=== PATIENT | female | born 1955 | race Caucasian/White ===

== ENCOUNTER → 2017-06-06 14:35 | Outpatient (CLI) | payer MEDICARE, SELFPAY | PROVIDERS: Visit Provider Family Medicine | DX: Z00.00 Encounter for general adult medical examination without abnormal findings (principal); R82.90 Unspecified abnormal findings in urine | CPT/HCPCS: 87086; 87088 ==

== ENCOUNTER 2017-06-19 05:41 | Inpatient (IN) | payer MEDICARE, SELFPAY ==
--- NOTE | 2017-05-16 10:46 | CASEMGMT ---
Social Work Note Placed call to pt to discuss discharge plan. Introduced self and role at [facility]. The pt reports that she lives with 3 family members in a one-story home with 3 entry steps and HR. DME consists of a walker, w/c and electric w/c. Pt does not anticipate additional DME needs. Pt states she talked to the physician about d/c options, but they did not identify a plan. Inform the pt of options and state that PT/OT will see her during her hospitalization and will make a recommendation. Understanding expressed and RN CM to f/u with post-operatively. Plan: TBD. Jaida Bateman WHARF ATTENDANT APPLICATIONS SUPPORT LEAD
--- NOTE | 2017-05-17 12:17 | EKG12_ITS ---
Test Reason : PREOP Blood Pressure : / mmHG Vent. Rate : 067 BPM Atrial Rate : 067 BPM P-R Int : 148 ms QRS Dur : 088 ms QT Int : 410 ms P-R-T Axes : 041 032 044 degrees QTc Int : 433 ms Normal sinus rhythm with sinus arrhythmia Normal ECG Confirmed by LETA BOB, SHAYY ([id number]), publications editor HUE CASANOVA ([id number]) on 05/18/2017 2:03:02 PM Referred By: LEXUS Confirmed By:SHAYY GILLETTE MD
[2017-05-17 12:41] LABS: Hematocrit 34.1 % (37-47); Mean Corp Hgb Conc 32.3 g/gl (32-36); Mean Corpuscular Volume 86.8 fL (81-99); Mean Platelet Vol. 9.8 fl (6.2-12.0); Platelet Count 289 K/mm3 (150-450); RBC Distribution Width CV 14.2 % (11.6-14.6); RBC Distribution Width SD 43.8 fl (35.1-43.9); Red Blood Count 3.93 M/mm3 (4.2-5.4); White Blood Count 7.3 K/mm3 (4.4-11.0)
[2017-05-17 12:43] LABS: Scan Indicated on CBC? Y/N NO
[2017-05-17 13:30] LABS: Anion Gap 9 (5-15); BUN 13 mg/dL (7-18); BUN/Creat Ratio 15.3 RATIO (10-20); Calcium,Total 9.2 mg/dL (8.5-10.1); Chloride 105 mmol/L (98-107); Creatinine, Serum 0.85 mg/dL (0.55-1.02); EST Glomerular Filtration Rate 72 mL/min (>60); Est Glom Filt Rate - Afr Amer 87 mL/min (>60); Glucose 103 mg/dL (74-106); Potassium 3.9 mmol/L (3.5-5.1); Sodium Level 139 mmol/L (136-145)
--- NOTE | 2017-06-14 15:49 | CASEMGMT ---
BROOKS CEE called and spoke with patient regarding discharge needs after upcoming surgery. BROOKS CEE confirmed that patient has a walker, wheelchair, and electric wheelchair at home. Patient states she lives in house with and family. Patient states the Dr. Chua was not sure on type of therapy for at discharge but patient plans to discharge home. Discussed outpatient therapy vs [facility] and will monitor how patient does with therapy after surgery. BROOKS CEE will follow up with patient after surgery and will assist with discharge needs.
[2017-06-19] VITALS (11 sets, daily range): BP systolic 94–155; BP diastolic 55–87; PULSE 58–73; RESP 16–18; TEMP 36.1–36.9; O2SAT 91–97; BMI 47.5
[2017-06-19] MEDS: oxyCODONE HCl Cr 10 MG Tablet PO ×3 (06:34→21:28)
--- NOTE | 2017-06-19 07:15 | KNEE_PTH ---
PATIENT: MACKENZIE AKHTAR LOC: MS3 U#:[id number] AGE/SX: 61/F ROOM: SC315 RE06/19/[address]: Dr. Arina Garrett DO : 1955 BED: 1 DIS: 06/22/2017 SPEC #: [id number] RECD: 06/19/17 10:12 STATUS: ELSA ELIZABETH #: [id number] PRETTY: 06/19/17 07:[address]: Martir Chua DEPT: SURGICAL PATHOLOGY RECD BY: Deshaun Mccarty ENTERED: 06/19/17 14:14 SP TYPE: TOTAL KNEE OTHR DR: Dr. Sudheer Lion MD Tissues: A - Knee, NOS B - Knee, NOS Procedures: Decalcification bone/plaque Surgery Specimen Level IV HEADER OPERATION: Total knee replacement PRE-OP DIAGNOSIS: Right knee osteoarthritis TISSUE SUBMITTED: A ? Right knee bone and soft tissue, B ? Right knee soft tissue, PVNS, for biopsy MICROSCOPIC DIAGNOSIS A. Right knee bone and soft tissue, total knee replacement: Pieces of bone with degenerative osteoarthritic changes. Fibroadipose tissue, fibroconnective tissue and reactive synovial tissue. B. Right knee soft tissue: A piece of synovial tissue with mild papillary hyperplasia, chronic inflammation and reactive changes. See comment. SJ:marti 06/22/17 COMMENT B. Changes consistent with pigmented villonodular synovitis are not seen. MICROSCOPIC DESCRIPTION Slides are reviewed. GROSS DESCRIPTION A - Received is one container designated right knee bone and soft tissue. The specimen consists of multiple fragments of thomas-yellow bone measuring in aggregate 15 x 11 x 1.5 cm. Also in the specimen container are multiple fragments of yellow-white soft tissue measuring in aggregate 11 x 6 x 2 cm. A number of bony fragments contain articular surfaces consistent with tibial plateau and femoral condyle and displaying prominent osteophyte formation, eburnation, and bone erosion. Wool Dyer sections are submitted in two cassettes as follows: 1 - bone after decalcification, 2 - soft tissue. B - Received in fixative is one container labeled with the patient's name and designated right knee soft tissue. The specimen consists of an elongated fragment of pink-yellow soft tissue measuring 6 x 2.5 x 1.5 cm. Serial sections do not reveal mass lesions. Wool Dyer sections are submitted in one cassette. / AM:marti 06/19/17 TC:5 CPT: 30296 x2, 48090
--- NOTE | 2017-06-19 08:45 | PCM.IMDPSTOP ---
Immediate Post-Op Note Date of Procedure: 06/19/17 Primary Surgeon/Physician: Martir Chua DO automatic buffing wheel former: Deyvi Uriarte Pre-Operative Diagnosis: Right knee osteoarthritis, history of CVA Post-Operative Diagnosis: Same as above Surgery/Procedure Performed:: Right total knee arthroplasty. Description of Surgical Findings:: See dictation Estimated Blood Loss: 50 Specimen's removed: Bone cuts, synovial biopsy-possible PVNS Type of Anesthesia:: Spinal ASA Class: ASA3 Severe Disease - Admit VTE Documentation VTE Present on Admission: No VTE Mechan Device Prophylaxis: SCD's, Knee High FRANCI Hose VTE Pharm Prophylaxis ordered?: Yes
--- NOTE | 2017-06-19 08:54 | OP.PCM_ITS ---
Report of Operation Date of Procedure: 06/19/17 Pre-Operative Diagnosis: Right knee osteoarthritis, history of CVA Post-Operative Diagnosis: Same as above Surgery/Procedure Performed:: Right total knee arthroplasty. Description of Surgical Findings:: 61-year-old female with recalcitrant right knee pain and osteoarthritis and with a history of cva to that ipsilateral side. Having failed conservative measures to include NSAIDs activity modifications physical therapy and injections. Patient elected for operative intervention. She was up to counseled consented for the aforementioned procedure. She is met in the holding area where the right lower extremity was marked and identified by the with surgeon. Patient was taken the operating room in satisfactory condition with somewhat to place to identify patient operative procedure and limb. Patient received 1 g of vancomycin secondary to a positive MRSA skin test and 1 g of TXA. She had a well-placed tourniquet the right proximal thigh. She was then prepped and draped in usual fashion. Patient showed no obvious flexion contracture but was in varus with a correctable deformity. Patient has somewhat of a large pannus which causes her leg externally rotated. Right lower extremity was elevated Esmarch used for exsanguination and tourniquet was increased to 250 mmHg for roughly 60 minutes. Patient is standard midline incision made 2 fingerbreadths above the patella down to the tibial tubercle. Full-thickness dissection was undertaken. She had then underwent a standard medial parapatellar approach. Patient had a large return of an effusion. Her superior synovial flap had some discoloration concerning for PVNS so ice did of synovial biopsy at that time we will send down for evaluation. Standard synovectomy was undertaken. Anterior release and fat pad resection was then performed. We then performed a standard anterior medial release moving posterior medially to correct the valgus deformity. At that point time we entered into the intramedullary canal to perform our distal femoral cut. We had a 6? valgus cut with an 8 mm distal femoral resection. Sizing guide was then placed. Patient sized to a size 3. Standard cutting block was placed and cuts performed without difficulty. We then turned our attention to the tibia. Tibial guide was set for a CR component with 3? of slope. Standard cuts were performed taking 2 mm off the medial side. Patient was then brought to full extension remnant menisci were resected. The posterior medial and posterior lateral geniculate vessels were then cauterized. Patient sized to a size 9 and 11 with no flexion extension gaps appreciated and good mechanical alignment. At that point time the trial femoral component was placed in anticipation of a press-fit component secondary to good bone quality. We then placed a size 3 tibial tray setting and appropriate rotation. It was then fixed using standard technique we trialed to a size 11. Had good overall mechanical alignment. Trial component was removed femoral component keel size were introduced. We then placed a keel punch the tibia and secondary punch in anticipation again of a press-fit component. We then turned our attention to the patella. The patella diameter was 22 mm. We took off 9. Patient sized with 32 patella button. Standard holes were drilled in anticipation of performing a cemented patella component. The wound was then copiously irrigated remove any excess debris. Trial our final components were brought from the back table. Cement was pared to the back table as well. Subsequently press-fit the femur with good fit. Seated our tibial tray and placed a 11 mm Pham. In Galvan turned our attention to the patella the patella patella was then cemented and allowed to cure using standard technique. Upon completion we checked our range of motion with a 13 mm poly-trial with good patellar tracking. At that point time the wound was copious irrigated additional time remove any excess debris and cement. We then introduced a 13 mm CS Pham. This was done using standard technique. With excellent range of motion mechanical stability there was no flexion or extension gaps appreciated. At that point time the wound was copious irrigated additional time and then closed in layer technique with the distal two thirds closed with the knee in flexion of about 30? using #1 Vicryl in [id number] technique. The proximal portion of the quad incision was closed with again with #1 Vicryl using [id number] and full extension. Soft tissues reapproximated 2-0 Vicryl running subicular Monocryl and Dermabond. I was scrubbed and available time during our procedure. We had no drains or complications. Implants included Fabiola triathlon press-fit 3 femur 3 tibia 11 CS Pham and a 32 patella button. Patient be admitted floor for 24 hours of IV antibiotics appropriate IV and p.o. pain medication and DVT prophylaxis to include 325 p.o. twice daily of aspirin with appropriate GI prophylaxis and then we will substitute convert the patient back to Plavix per recommendation of medicine. Any major issues please contact me. financial services sales representative: Deyvi Uriarte Type of Anesthesia:: Spinal Specimen's removed: Bone cuts, synovial biopsy-possible PVNS Estimated Blood Loss (mL): 50 Grafts/Implants Used: Striker triathlon press-fit 3, 3, 13 CS, 32 - Complications None - Admit VTE Documentation VTE Present on Admission: No VTE Mechan Device Prophylaxis: SCD's, Knee High FRANCI Hose VTE Pharm Prophylaxis ordered?: Yes
--- NOTE | 2017-06-19 09:10 | RAD_ITS ---
STUDY: X-RAY - RIGHT KNEE REASON FOR EXAM: Female, 61 years old. Total knee replacement. TECHNIQUE: AP and lateral view(s) of the knee. COMPARISON: Comparison is made with prior study dated April 18, 2017. FINDINGS: Normal visualized distal femur. Normal visualized proximal tibia and fibula. Normal proximal tibiofibular articulation. The patient is status post total knee replacement. There is good alignment. Postoperative soft tissue changes. RAD/Knee 1 or 2 Views IMPRESSION: Total knee replacement. There is good alignment. Postoperative soft tissue changes. Electronically Signed: Boone Castro MD at 12:54 EDT Tel [phone], Service support ,
[2017-06-19] MEDS: Ketorolac 15 MG/ML Vial IV (09:35)
[2017-06-19] MEDS: Lactated Ringers 1,000 ML 75 ML IV (11:49)
[2017-06-19] MEDS: Famotidine 20 MG Tablet PO (13:15)
[2017-06-19] MEDS: Sertraline 50 MG Tablet PO (13:16)
[2017-06-19] MEDS: Multivitamins,Therapeutic Tablet 1 TABLET PO (13:16)
[2017-06-19] MEDS: Pantoprazole Sodium 40 MG Tablet PO (13:16)
[2017-06-19] MEDS: Senna/Docusate Sodium 1 Tablet 2 TABLET PO ×2 (13:17→21:28)
[2017-06-19] MEDS: Lisinopril 10 MG Tablet PO ×2 (13:17→21:28)
[2017-06-19] MEDS: Ascorbic Acid 500 MG Tablet 1000 MG PO (13:18)
[2017-06-19] MEDS: ALPRAZolam 0.5 MG Tablet 1 MG PO ×2 (13:21→21:28)
[2017-06-19] MEDS: Pramipexole Di-HCl 0.25 MG Tablet 0.75 MG PO ×2 (14:24→21:28)
[2017-06-19] MEDS: Acetaminophen 500 MG Tablet 1000 MG PO ×2 (14:24→21:28)
[2017-06-19] MEDS: Aspirin 325 MG Tablet PO (16:51)
[2017-06-19] MEDS: oxyCODONE 5 MG Tablet PO (16:58)
[2017-06-19] MEDS: Atorvastatin Calcium 40 MG Tablet PO (21:28)
[2017-06-20] VITALS (10 sets, daily range): BP systolic 166–244; BP diastolic 66–95; PULSE 78–96; RESP 16–20; TEMP 36.6–37; O2SAT 92–99
[2017-06-20] MEDS: oxyCODONE 5 MG Tablet PO (04:01)
[2017-06-20] MEDS: Ketorolac 15 MG/ML Vial IV (04:04)
[2017-06-20] MEDS: 0.9% NaCl Peripheral Flush Adult/Peds IV ×2 (04:04→15:22)
[2017-06-20 06:05] LABS: Hematocrit 30.7 % (37-47); Hemoglobin 9.6 g/dl (12.0-15.0); Mean Corp Hgb Conc 31.3 g/gl (32-36); Mean Corpuscular Hgb 27.1 pg (27.0-32.0); Mean Corpuscular Volume 86.7 fL (81-99); Platelet Count 255 K/mm3 (150-450); RBC Distribution Width CV 14.2 % (11.6-14.6); RBC Distribution Width SD 43.5 fl (35.1-43.9); Red Blood Count 3.54 M/mm3 (4.2-5.4); White Blood Count 8.2 K/mm3 (4.4-11.0)
[2017-06-20 06:11] LABS: Scan Indicated on CBC? Y/N NO
[2017-06-20] MEDS: Pramipexole Di-HCl 0.25 MG Tablet 0.75 MG PO ×3 (06:13→22:02)
[2017-06-20] MEDS: Acetaminophen 500 MG Tablet 1000 MG PO ×3 (06:13→22:02)
[2017-06-20 06:18] LABS: Anion Gap 8 (5-15); BUN 17 mg/dL (7-18); BUN/Creat Ratio 15.2 RATIO (10-20); Calcium,Total 8.4 mg/dL (8.5-10.1); Chloride 105 mmol/L (98-107); Creatinine, Serum 1.12 mg/dL (0.55-1.02); EST Glomerular Filtration Rate 52 mL/min (>60); Est Glom Filt Rate - Afr Amer 63 mL/min (>60); Estimated Creatinine Clearance 40.66 ml/min; Glucose 158 mg/dL (74-106); Potassium 4.1 mmol/L (3.5-5.1); Sodium Level 139 mmol/L (136-145)
--- NOTE | 2017-06-20 07:48 | PCM.PN.ORT ---
Subjective: Postop day 1 status post right total knee arthroplasty. No other issues overnight. Pain is controlled but still playing catch up a little bit as the block wears off which is expected. Otherwise the patient reports having been up ambulating and using the restroom. Currently eating. No acute distress. Denies any fevers chills nausea vomiting chest pain or shortness of breath. - Physical Exam General: Alert, Oriented x3, Cooperative, No apparent distress Musculoskeletal: - - Distally neurovascular intact. EHL anterior gastrocsoleus peroneals 5 out of 5. Patient shows mild varus change the ankle related to contracture related to her stroke. The may alter gait pattern just to be aware. Otherwise no calf pain negative Homans. Hardware otherwise well seated well-placed. Lab values stable. Vital Signs Temp Pulse Resp BP Pulse Ox 98.6 F 78 20 H 195/93 H 94 06/20/17 04:00 06/20/17 04:00 06/20/17 04:00 06/20/17 04:00 06/20/17 04:00 Oxygen Flow Rate (L/min) 2 Oxygen Delivery Method Venturi Mask Weight: 263 lb 0.183 oz Body Mass Index (BMI) 47.5 Finger Stick Blood Glucose 97 Intake and Output for Last 24 Hours 06/18/17 06/19/17 06/20/17 23:59 23:59 23:59 Intake Total 1200 / 1200 1008 / 1008 Output Total 550 / 550 Balance 1200 / 1200 458 / 458 Laboratory Tests Past 24 Hrs 06/20/17 06/20/17 05:06 05:06 WBC 8.2 RBC 3.54 L Hgb 9.6 L Hct 30.7 L MCV 86.7 MCH 27.1 MCHC 31.3 L RDW 14.2 RDW Differential 43.5 Plt Count 255 MPV 10.0 Sodium 139 Potassium 4.1 Chloride 105 Carbon Dioxide 26.0 Anion Gap 8 BUN 17 Creatinine 1.12 H Estim Creat Clear Calc 40.66 Est GFR (MDRD) Af Amer 63 Est GFR (MDRD) Non-Af 52 L BUN/Creatinine Ratio 15.2 Glucose 158 H Calcium 8.4 L Assessment/Plan Assessment: Postop day 1 status post right total knee arthroplasty doing well. Plan: At this point time I change the medication to 10 mg every 4 as she is a bigger lady. We will continue with current regimen for now. Continue to mobilize. His pain management issues please contact me and we can consider either changing her IV medication to Dilaudid or consider changing her OxyContin as long as he is not to use too sedated to 20 mg. Continue to work on aggressive range of motion. Patient will need placement to transitional care unit or equivalent. Any issues please contact me.
[2017-06-20] MEDS: Lisinopril 10 MG Tablet PO ×2 (08:21→22:02)
[2017-06-20] MEDS: Famotidine 20 MG Tablet PO (08:21)
[2017-06-20] MEDS: Multivitamins,Therapeutic Tablet 1 TABLET PO (08:21)
[2017-06-20] MEDS: Pantoprazole Sodium 40 MG Tablet PO (08:21)
[2017-06-20] MEDS: Senna/Docusate Sodium 1 Tablet 2 TABLET PO ×2 (08:21→22:02)
[2017-06-20] MEDS: Aspirin 325 MG Tablet PO ×2 (08:21→17:03)
[2017-06-20] MEDS: Ascorbic Acid 500 MG Tablet 1000 MG PO (08:21)
[2017-06-20] MEDS: Sertraline 50 MG Tablet PO (08:22)
[2017-06-20] MEDS: Gabapentin 300 MG Capsule PO ×2 (08:25→17:03)
[2017-06-20] MEDS: oxyCODONE HCl Cr 10 MG Tablet PO (08:26)
[2017-06-20] MEDS: ALPRAZolam 0.5 MG Tablet 1 MG PO (08:26)
[2017-06-20] MEDS: Iron Polysaccharide Complex 150 MG CAPSULE PO (08:43)
[2017-06-20] MEDS: oxyCODONE 5 MG Tablet 10 MG PO ×2 (10:27→17:03)
--- NOTE | 2017-06-20 10:45 | CASEMGMT ---
BROOKS CEE Face to Face with patient for initial transition planning/care coordination assessment. BROOKS CEE introduced self and role at [facility]. Patient sitting in chair, alert and oriented. Patient willing to participate in assessment and is able to answer all questions appropriately. Care providers, pharmacy, and demographics verified. Patient wishes to discharge home and discussed with patient and therapy HHC vs outpatient therapy. Patient states that HHC would be preferred. Patient has a rollator and therapy stated patient would benefit from FWW. Patient states he has no further needs or concerns at this time. BROOKS CEE will obtain script from Dr. Chua for FWW and setup with [facility] for delivery to hospital prior to discharge. Referral made to [facility]HC for PT at home. CM to follow for discharge planning needs that may arise. Disposition Plan: Patient to discharge home with HHC, family support, and follow-up plans in place.
--- NOTE | 2017-06-20 11:15 | CASEMGMT ---
Received call back from Susie at [facility] and they are able to accept the patient. RN CM will continue to follow this patient and plan for a safe discharge.
--- NOTE | 2017-06-20 15:17 | PCM.CONS.GEN ---
Problem List (1) Coronary artery disease Status: Chronic (2) Hyperlipidemia Status: Chronic (3) Hypertension Status: Chronic (4) Morbid obesity Status: Chronic (5) Right sided cerebral infarction Status: Chronic Reason for Consult Date of Consultation: 06/20/17 Reason for Consultation: Elevated blood pressure and postoperative medical management. History of Present Illness: The patient is a 61 year old F with past medical history as mentioned above who was admitted on June 19, 2017 for elective right total knee replacement for right knee osteoarthritis and I am seeing this patient in consultation for postoperative medical management and highly elevated blood pressure. Patient seen and examined. She complained of right knee pain, 7 out of 10 in severity, not radiating and her current pain medication regimen is not controlling her pain. She is on she was started on MS Contin, IV morphine and OxyIR for pain and according to nursing staff, she has been sleepy and lethargic most of her time. Even though, she has been complaining of severe right knee pain. She denied headache, blurry vision or change in her speech. She denied chest pain or shortness of breath. Denied abdominal pain, nausea or vomiting. She denied numbness or tingling. She has a history of CAD status post stents and she is on Plavix, statins and lisinopril. She had a history of hypertension and at this time, her blood pressure is highly elevated. She is on lisinopril and she is not sure if she is still on Norvasc or not. She has a history of depression and anxiety with history of suicide attempt in the past and she has been on Zoloft and Xanax. At this time, blood pressure is 244/95. Order given to give IV hydrazine 10 mg every 8 hours as needed for systolic more than 160. I requested the nursing staff to update her medication list by contacting her pharmacy and see if she is still on Norvasc. Routine blood work from today reviewed, revealed chronic anemia with stable hemoglobin, otherwise normal. Past Medical History Past Medical History (Chronic Problems): Chronic Problems (Last Reviewed 06/06/17 @ 10:31 by Judith Mai) Coronary artery disease (Chronic) Morbid obesity (Chronic) Right sided cerebral infarction (Chronic) Hypertension (Chronic) Hyperlipidemia (Chronic) Allergies ciprofloxacin [From Cipro] Allergy (Verified 05/16/17 13:03) Unknown escitalopram oxalate [From Lexapro] Allergy (Verified 05/16/17 13:03) Unknown heparin Allergy (Verified 05/16/17 13:03) Unknown mupirocin [From Bactroban] Allergy (Verified 05/16/17 13:03) Unknown trazodone Allergy (Verified 05/16/17 13:03) Unknown adhesive tape Adverse Reaction (Verified 05/16/17 13:03) Other Home Medications: Ambulatory Orders Medication Instructions Recorded ALPRAZolam [Xanax] 1 mg PO BID 08/25/15 Clopidogrel Bisulfate [Plavix] 75 mg PO QHS 08/25/15 Ibuprofen [Motrin] 600 mg PO Q8 08/25/15 Lisinopril [Zestril] 10 mg PO BID 08/25/15 Sertraline HCl [Zoloft] 50 mg PO DAILY 08/25/15 Atorvastatin Calcium [Lipitor] 40 mg PO QHS 01/27/16 L.acidoph,Paracasei, B.lactis 1 ea PO DAILY 01/27/16 [Probiotic] Pantoprazole Sodium [Protonix] 40 mg PO DAILY 01/27/16 Pramipexole Di-HCl [Mirapex ER] 2.25 mg PO QHS 02/23/17 amlodipine 10 mg tablet 10 mg PO QDAY #90 tab 05/21/17 tramadol 50 mg tablet 50 mg PO Q6H 06/06/17 Surgical History: cholecystectomy, hysterectomy, tonsillectomy Psychiatric History: Anxiety, Depression [employer]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 Dyspnea, Syncope Respiratory: Denies: Cough, Hemoptysis, Pleuritic Pain, Shortness of Breath, Sputum production, Wheezing Gastrointestinal: Denies: Abdominal Pain, Constipation, Diarrhea, Nausea, Vomiting Genitourinary: Denies: Dysuria, Frequency, Hematuria Musculoskeletal: Reports: Joint Pain. Denies: Arm Pain, Back Pain Skin: Denies: Dryness, Rash Neurological: Denies: Balance problems, Double vision, Change in Speech, Slurred speech, Confusion, Headaches, Incoordination, Numbness Psychiatric: Reports: Anxiety, Depression Endocrine: Denies: Change in Body Habitus, Polydipsia - Physical Exam General: Alert, Cooperative, No apparent distress, - - Sleepy, lethargic but easily arousable. HEENT: Atraumatic, PERRLA, EOMI Oral: Moist Mucosa, No Gingival or Mucosal Lesions/ Ulcerations Neck: Supple, No JVD, Negative Carotid Bruits, Trachea Midline, Thyroid Normal Size and Texture Lungs: Clear to auscultation, No rhonchi, No wheeze, No rales, Diminished Cardiovascular: Regular rate, Regular Rhythm, Normal S1, Normal S2, No murmurs, PMI Normal Abdomen: Bowel Sounds Present, Soft, Non Tender, Non-Distended, No Hepato-splenomegaly, Obese Extremities: No clubbing, No cyanosis, No edema Skin: No rashes, No breakdown Lymphatic: No Cervical, Supraclavicular, or Inguinal Adenopathy Neurological: Cranial nerves II-XII grossly intact, Motor Exam 5/5 strength throughout Psych/Mental Status: Normal Affect, Appropriate Vital Signs Temp Pulse Resp BP Pulse Ox 98.5 F 78 16 244/95 H 92 06/20/17 11:29 06/20/17 11:29 06/20/17 11:29 06/20/17 13:32 06/20/17 11:29 Oxygen Flow Rate (L/min) 2 Oxygen Delivery Method Room Air Weight: 263 lb 0.183 oz Body Mass Index (BMI) 47.5 Finger Stick Blood Glucose 97 Intake and Output for Last 24 Hours 06/18/17 06/19/17 06/20/17 23:59 23:59 23:59 Intake Total 1200 / 1200 1458 / 1458 Output Total 1125 / 1125 Balance 1200 / 1200 333 / 333 Laboratory Tests Past 24 Hrs 06/20/17 06/20/17 05:06 05:06 WBC 8.2 RBC 3.54 L Hgb 9.6 L Hct 30.7 L MCV 86.7 MCH 27.1 MCHC 31.3 L RDW 14.2 RDW Differential 43.5 Plt Count 255 MPV 10.0 Sodium 139 Potassium 4.1 Chloride 105 Carbon Dioxide 26.0 Anion Gap 8 BUN 17 Creatinine 1.12 H Estim Creat Clear Calc 40.66 Est GFR (MDRD) Af Amer 63 Est GFR (MDRD) Non-Af 52 L BUN/Creatinine Ratio 15.2 Glucose 158 H Calcium 8.4 L Clinical Impression(s) from Imaging Studies Knee X-Ray 06/19/17 09:10 IMPRESSION: Total knee replacement. There is good alignment. Postoperative soft tissue changes. Electronically Signed: Boone Castro MD at 12:54 EDT Tel [phone], Service support , Assessment/Plan This is a 61 years old female patient admitted for elective right total knee replacement for right knee osteoarthritis and I am seeing this patient in consultation for postoperative medical management and highly elevated blood pressure. #1 status post right total knee replacement: Postoperative day 1. Patient was on IV morphine as needed, MS Contin twice daily and OxyIR her pain is not well controlled. Nursing staff reported that patient is lethargic as of her time. MS Contin was discontinued. At this time, she is on Tyleno and OxyIR as needed. Blood pressure is elevated, other vital signs are stable. Routine blood work reviewed as above, revealed anemia, otherwise unremarkable. Orthopedic surgery is managing. #2 uncontrolled hypertension: Maximum blood pressure was 244/95. This is likely because of uncontrolled right knee pain. Patient is on lisinopril twice daily. She is not sure if she is still on Norvasc, plan to contact her pharmacy and verify. Plan to start IV hydralazine as needed, would recommend pain control of her right knee pain. #3 CAD status post stents: Stable, no chest pain or shortness of breath. Continue aspirin, statins and lisinopril. #4 hyperlipidemia: Continue statins. #5 anxiety/depression: Continue Zoloft and Xanax. #6 DVT prophylaxis: She is on full dose aspirin twice daily This note was generated with [employer] software. It may contain incorrect words, spelling, and punctuation that were not noted in checking the note before signing. Code Visit Inpatient E&M: 88007 Init Hosp L2
[2017-06-20] MEDS: amLODIPine 10 MG Tablet PO (16:31)
[2017-06-20] MEDS: Atorvastatin Calcium 40 MG Tablet PO (22:02)
[2017-06-21] VITALS (11 sets, daily range): BP systolic 155–214; BP diastolic 53–83; PULSE 88–104; RESP 16–20; TEMP 36.4–36.8; O2SAT 90–95
[2017-06-21] MEDS: 0.9% NaCl Peripheral Flush Adult/Peds IV ×2 (04:14→20:32)
[2017-06-21] MEDS: oxyCODONE 5 MG Tablet 10 MG PO (04:14)
[2017-06-21 06:16] LABS: Hematocrit 29.8 % (37-47); Hemoglobin 9.5 g/dl (12.0-15.0); Mean Corp Hgb Conc 31.9 g/gl (32-36); Mean Corpuscular Hgb 27.5 pg (27.0-32.0); Mean Corpuscular Volume 86.1 fL (81-99); Mean Platelet Vol. 10.1 fl (6.2-12.0); Platelet Count 284 K/mm3 (150-450); RBC Distribution Width CV 14.3 % (11.6-14.6); RBC Distribution Width SD 43.3 fl (35.1-43.9); Red Blood Count 3.46 M/mm3 (4.2-5.4); White Blood Count 8.7 K/mm3 (4.4-11.0)
[2017-06-21 06:22] LABS: Scan Indicated on CBC? Y/N NO
[2017-06-21 06:24] LABS: Anion Gap 9 (5-15); BUN 14 mg/dL (7-18); BUN/Creat Ratio 15.2 RATIO (10-20); Calcium,Total 8.7 mg/dL (8.5-10.1); Chloride 103 mmol/L (98-107); Creatinine, Serum 0.92 mg/dL (0.55-1.02); EST Glomerular Filtration Rate 65 mL/min (>60); Est Glom Filt Rate - Afr Amer 79 mL/min (>60); Glucose 159 mg/dL (74-106); Potassium 3.5 mmol/L (3.5-5.1); Sodium Level 137 mmol/L (136-145)
--- NOTE | 2017-06-21 06:37 | PCM.PN.ORT ---
Subjective: Postop day 2 status post right total knee arthroplasty. Patient currently sitting upright with knee bent to 90?. Patient states when she is ambulating sure knee pain is 8 out of 10 but when resting it is 4-6 out of 10. We modified her pain medications yesterday because she was too somnolent with IV medications and sustained release narcotics. Currently on OxyIR every 4 hours and Tylenol. Hospitalist team was consulted secondary to hypertension and they have modified her medications to bring her down. We are also still working on her pain at this time as well. Otherwise patient is ambulating accordingly. Patient anticipates home health discharge. - Physical Exam General: Alert, Oriented x3, Cooperative, No apparent distress Musculoskeletal: - - Distally neurovascular intact. No calf pain negative Homans. Range of motion 0-90. Lab values stable. Patient still hypertensive heart rate within normal limits. Vital Signs Temp Pulse Resp BP Pulse Ox 98.0 F 91 16 178/83 H 94 06/21/17 04:00 06/21/17 04:14 06/21/17 04:00 06/21/17 04:14 06/21/17 04:00 Oxygen Flow Rate (L/min) 2 Oxygen Delivery Method Nasal Cannula Weight: 263 lb 0.183 oz Body Mass Index (BMI) 47.5 Finger Stick Blood Glucose 97 Intake and Output for Last 24 Hours 06/19/17 06/20/17 06/21/17 23:59 23:59 23:59 Intake Total 1200 / 1200 2007 250 / 250 Output Total 1475 / 1475 Balance 1200 / 1200 533 / 533 250 / 250 Laboratory Tests Past 24 Hrs 06/21/17 06/21/17 05:30 05:30 WBC 8.7 RBC 3.46 L Hgb 9.5 L Hct 29.8 L MCV 86.1 MCH 27.5 MCHC 31.9 L RDW 14.3 RDW Differential 43.3 Plt Count 284 MPV 10.1 Sodium 137 Potassium 3.5 Chloride 103 Carbon Dioxide 25.0 Anion Gap 9 BUN 14 Creatinine 0.92 Estim Creat Clear Calc 49.50 Est GFR (MDRD) Af Amer 79 Est GFR (MDRD) Non-Af 65 BUN/Creatinine Ratio 15.2 Glucose 159 H Calcium 8.7 Assessment/Plan Assessment: Postop day 2 status post right total knee arthroplasty. Uncontrolled hypertension. Plan: Pain hypertensive medications have been added we discontinue to monitor that for now. I will increase her OxyIR to 15 mg every 4 hours. I told the patient is a fine line between pain control and being too sedated. If the patient remains symptomatic I will consider asking either for consultation from the pain management team or adding a dermal patch if needed. We will recheck the patient around noon I come back for cases today. Continue to monitor blood pressure. Continue to encourage good pulmonary toileting especially in the face of use of narcotics to prevent any form of pneumonia or atelectasis. Looking hopefully for discharge either later today if patient is able or tomorrow long his pain is under control. We will continue to follow. Any major issues please contact me.
[2017-06-21] MEDS: Pramipexole Di-HCl 0.25 MG Tablet 0.75 MG PO ×2 (06:57→14:53)
[2017-06-21] MEDS: Acetaminophen 500 MG Tablet 1000 MG PO ×3 (06:57→20:32)
[2017-06-21] MEDS: Iron Polysaccharide Complex 150 MG CAPSULE PO (07:23)
[2017-06-21] MEDS: Aspirin 325 MG Tablet PO ×2 (07:23→17:44)
[2017-06-21] MEDS: Sertraline 50 MG Tablet PO (07:24)
[2017-06-21] MEDS: Lisinopril 10 MG Tablet PO (07:24)
[2017-06-21] MEDS: Gabapentin 300 MG Capsule PO ×2 (07:24→17:44)
[2017-06-21] MEDS: Senna/Docusate Sodium 1 Tablet 2 TABLET PO ×2 (07:24→20:32)
[2017-06-21] MEDS: Ascorbic Acid 500 MG Tablet 1000 MG PO (07:24)
[2017-06-21] MEDS: Multivitamins,Therapeutic Tablet 1 TABLET PO (07:25)
[2017-06-21] MEDS: Famotidine 20 MG Tablet PO (07:25)
[2017-06-21] MEDS: Pantoprazole Sodium 40 MG Tablet PO (07:26)
[2017-06-21] MEDS: ALPRAZolam 0.5 MG Tablet 1 MG PO (07:28)
[2017-06-21] MEDS: amLODIPine 10 MG Tablet PO (07:28)
[2017-06-21] MEDS: oxyCODONE 5 MG Tablet 15 MG PO (09:18)
--- NOTE | 2017-06-21 16:25 | PCM.DC.TKR ---
Discharge Activity: Return to Normal Activity, May not drive while taking narcotic pain medications., May Shower, Use Walker May shower in (days): 2 Ice area for (Minutes): 20 Weight Bearing Status: Weight bearing as tolerated Call your doctor if your incision/area has: Continuous Slow Oozing, Sudden Increased Bleeding, Increased Pain/ Swelling, Increased Redness, Foul Smelling Discharge, Swelling at the incision site Call your doctor if you observe: Fever of 101 or Higher, Coldness, Increased Pain, Numbness or Tingling, Change in Color, Inability to urinate, Inability to have a bowel movement, Using more than one pad per hour, Shortness of breath, Dizziness, Fainting spells, Swelling in the ankles, Chest pain, Prolonged hiccoughing, Increased palpitations (irregular heartbeat), Calf discomfort, Uncontrolled pain Suture Line Care: Avoid Pulling/Pushing, Avoid Pinching/Bending Change Dressing in (Days):: 5 Remove Dressing in (days):: 5 Cleanse incision/area with: Soap & Water Additional Dressing/Incision Instructions:: Remove dressing in 5 days. May shower at this time. Do not submerge wound. Replace Andrzej wrap as needed to protect wound. Wash hands prior to touching wound. Allergies/Adverse Reactions: Allergies ciprofloxacin [From Cipro] Allergy (Verified 05/16/17 13:03) Unknown escitalopram oxalate [From Lexapro] Allergy (Verified 05/16/17 13:03) Unknown heparin Allergy (Verified 05/16/17 13:03) Unknown mupirocin [From Bactroban] Allergy (Verified 05/16/17 13:03) Unknown trazodone Allergy (Verified 05/16/17 13:03) Unknown adhesive tape Adverse Reaction (Verified 05/16/17 13:03) Other Medications to take at Discharge ALPRAZolam [Xanax] 1 mg PO BID 08/25/15 Clopidogrel Bisulfate [Plavix] 75 mg PO QHS 08/25/15 Ibuprofen [Motrin] 600 mg PO Q8 08/25/15 Lisinopril [Zestril] 10 mg PO BID 08/25/15 Sertraline HCl [Zoloft] 50 mg PO DAILY 08/25/15 Atorvastatin Calcium [Lipitor] 40 mg PO QHS 01/27/16 L.acidoph,Paracasei, B.lactis [Probiotic] 1 ea PO DAILY 01/27/16 Pantoprazole Sodium [Protonix] 40 mg PO DAILY 01/27/16 Pramipexole Di-HCl [Mirapex ER] 2.25 mg PO QHS 02/23/17 tramadol 50 mg tablet 50 mg PO Q6H 06/06/17 Amlodipine Besylate [Norvasc] 10 mg PO QDAY 06/20/17 Aspirin E.C. [Ecotrin] 325 mg PO BID #30 tab 06/21/17 Docusate Sodium [Colace] 100 mg PO BID PRN PRN #30 cap 06/21/17 Famotidine [Pepcid] 20 mg PO BID #60 tab 06/21/17 Oxycodone HCl/Acetaminophen [Percocet 5/325] 1 - 2 tablet PO Q4H PRN PRN #60 tablet 06/21/17 ProMETHAzine [Phenergan] 25 mg PO Q4H PRN PRN #10 tab 06/21/17 The following prescriptions were given: Oxycodone HCl/Acetaminophen [Percocet 5/325] 1 - 2 tablet PO Q4H PRN PRN #60 tablet PRN Reason: Pain ProMETHAzine [Phenergan] 25 mg PO Q4H PRN PRN #10 tab PRN Reason: Nausea Docusate Sodium [Colace] 100 mg PO BID PRN PRN #30 cap PRN Reason: Constipation Aspirin E.C. [Ecotrin] 325 mg PO BID #30 tab Famotidine [Pepcid] 20 mg PO BID #60 tab Primary Care Physician: Sduheer Lion MD [Primary Care Provider] - Please Follow Up With: Martir Chua DO When: call [facility] for appt for 2 weeks Proposed Discharge Date: 06/22/17
--- NOTE | 2017-06-21 19:05 | PCM.PROGNOTE ---
Subjective: Patient is a 61-year-old female with a history of hypertension, super obesity, coronary artery disease, hyperlipidemia, anxiety/depression with a previous suicide attempt and history of a right cerebral CVA who was admitted to the hospital following an elective right total knee replacement by Dr. Chua. She has been afebrile since admission. Blood pressures over the past 24 hours have ranged from 160/72 to 232/93. Heart rate today is in the high 80s and 90s. Pulse ox is 90% on room air. She is currently 95% on 2 L but nursing tells me that she goes down into the low 80s when sleeping without oxygen. The pt and her disagree as to whether she has ever had a sleep study. All lab was personally reviewed. White blood cell count is normal at 8.7 today. Hemoglobin is stable at 9.5 and platelets are within normal limits. Electrolytes are normal and the BUN is 14 with a creatinine of 0.92. Fasting blood sugars have been elevated at 158 and 159 the past 2 days. She denies any hx of DM. she did not complain about pain to me. she says that as long as she is not moving the pain is tolerable but, it gets worse with movement. She can barely keep her eyes open. She is appropriate when I ask her questions. She denies CP and SOB. Has not had a BM since admission but, does not feel constipated. No abdominal pain. She ambulated 30 feet with a front wheeled walker today with continuous Cardizem assist. Gait was slow. She needs a wide/heavy-duty wheeled walker at discharge. PT recommends home with home health and PT for a couple weeks and then outpatient physical therapy. - Physical Exam General: Cooperative, No apparent distress, - - She is sleepy and not keeping her eyes open but wakes up and is appropriate Lungs: Clear to auscultation, No rhonchi, No wheeze, No rales Cardiovascular: Regular rate, Regular Rhythm, Normal S1, Normal S2, Murmur - systolic at the second RICS with radiation to the LLSB and the apes Abdomen: Non Tender, Non-Distended, Obese Skin: No rashes Neurological: Cranial nerves II-XII grossly intact, Neuro grossly intact Psych/Mental Status: Appropriate Vital Signs Temp Pulse Resp BP Pulse Ox 98.2 F 95 16 160/70 H 95 06/21/17 14:57 06/21/17 14:57 06/21/17 14:57 06/21/17 14:57 06/21/17 14:57 Oxygen Flow Rate (L/min) 2 Oxygen Delivery Method Nasal Cannula Weight: 263 lb 0.183 oz Body Mass Index (BMI) 47.5 Finger Stick Blood Glucose 97 Intake and Output for Last 24 Hours 06/19/17 06/20/17 06/21/17 23:59 23:59 23:59 Intake Total 1200 / 1200 2007 1700 / 1700 Output Total 1475 / 1475 Balance 1200 / 1200 533 / 533 1700 / 1700 Laboratory Tests Past 24 Hrs 06/21/17 06/21/17 05:30 05:30 WBC 8.7 RBC 3.46 L Hgb 9.5 L Hct 29.8 L MCV 86.1 MCH 27.5 MCHC 31.9 L RDW 14.3 RDW Differential 43.3 Plt Count 284 MPV 10.1 Sodium 137 Potassium 3.5 Chloride 103 Carbon Dioxide 25.0 Anion Gap 9 BUN 14 Creatinine 0.92 Estim Creat Clear Calc 49.50 Est GFR (MDRD) Af Amer 79 Est GFR (MDRD) Non-Af 65 BUN/Creatinine Ratio 15.2 Glucose 159 H Calcium 8.7 Assessment/Plan Impressions 1. POD #2 S/P R TKA 2. nocturnal hypoxemia - suspected MARIA ESTHER 3. HTN - uncontrolled 4. hx of a R cerebral CVA 5. HLD 6. CAD 7. hyperglycemia with no hx of DM 8. super obesity 9. Anxiety/Depression with hx of suicide in the past. 10. N/N anemia likely due to acute blood loss from surgery 11. Restless leg syndrome-suspect secondary to obstructive sleep apnea-taking Mirapex 3 times daily at a large dose She desaturates at night while sleeping and I suspect she has MARIA ESTHER. Will need a PSG as an OP. Will order a overnight trending pulse ox. she needs an ambulatory pulse ox on RA prior to DC Need to decrease the sedating medications in light of hypoxemia and likelihood of MARIA ESTHER Will decrease the Xanax to 0.5 mg BID, decrease the Mirapex to 0.5 mg at HS only, decrease Gabapentin to 100 mg BID - not sure she even needs this as she is not describing neuropathic pain......pain is musculoskeletal Check a HGBA1C Increase the Lisinopril to 40 mg daily at HS. Continue the [facility] Weight loss advised. She may do better as an OP on Cymbalta or Effexor because they hlep with pain and do not cause weight gain. Would need to be off the Sertraline for 1 week prior to starting Cymbalta...to prevent Serotonin S. Code Visit Inpatient E&M: 70332 Subs Hosp L2
[2017-06-21] MEDS: Ketorolac 15 MG/ML Vial IV (20:24)
[2017-06-21] MEDS: Gabapentin 100 MG Capsule PO (20:31)
[2017-06-21] MEDS: Atorvastatin Calcium 40 MG Tablet PO (20:32)
[2017-06-21] MEDS: Lisinopril 40 MG Tablet PO (20:32)
[2017-06-21] MEDS: Pramipexole Di-HCl 0.25 MG Tablet 0.5 MG PO (20:32)
[2017-06-21] MEDS: ALPRAZolam 0.5 MG Tablet PO (20:32)
[2017-06-21 21:28] LABS: Hemoglobin A1c 7.1 % (4.2-6.3)
--- NOTE | 2017-06-21 23:38 | CPS ---
Overnight trend started on Room air. RN made aware.
[2017-06-22 02:16] VITALS: BP 159/84; PULSE 98; RESP 18; TEMP 36.6; O2SAT 95
[2017-06-22 05:36] VITALS: O2SAT 85
[2017-06-22] MEDS: Acetaminophen 500 MG Tablet 1000 MG PO ×2 (05:41→13:00)
[2017-06-22 07:26] VITALS: O2SAT 95
[2017-06-22 08:40] VITALS: BP 163/67; PULSE 101; RESP 18; TEMP 36.6; O2SAT 100
[2017-06-22] MEDS: Aspirin 325 MG Tablet PO (08:43)
[2017-06-22] MEDS: Senna/Docusate Sodium 1 Tablet 2 TABLET PO (08:43)
[2017-06-22] MEDS: Pantoprazole Sodium 40 MG Tablet PO (08:44)
[2017-06-22 08:45] LABS: Hematocrit 30.1 % (37-47); Hemoglobin 9.5 g/dl (12.0-15.0); Mean Corp Hgb Conc 31.6 g/gl (32-36); Mean Corpuscular Hgb 27.3 pg (27.0-32.0); Mean Corpuscular Volume 86.5 fL (81-99); Mean Platelet Vol. 9.9 fl (6.2-12.0); Platelet Count 333 K/mm3 (150-450); RBC Distribution Width CV 14.6 % (11.6-14.6); Red Blood Count 3.48 M/mm3 (4.2-5.4); White Blood Count 9.6 K/mm3 (4.4-11.0)
[2017-06-22] MEDS: Famotidine 20 MG Tablet PO (08:45)
[2017-06-22] MEDS: Multivitamins,Therapeutic Tablet 1 TABLET PO (08:45)
[2017-06-22] MEDS: Sertraline 50 MG Tablet PO (08:45)
[2017-06-22 08:46] LABS: Scan Indicated on CBC? Y/N NO
[2017-06-22] MEDS: Ascorbic Acid 500 MG Tablet 1000 MG PO (08:46)
[2017-06-22] MEDS: amLODIPine 10 MG Tablet PO (08:46)
[2017-06-22] MEDS: Iron Polysaccharide Complex 150 MG CAPSULE PO (08:47)
[2017-06-22] MEDS: Gabapentin 100 MG Capsule PO (08:49)
[2017-06-22 09:02] LABS: Anion Gap 8 (5-15); BUN 14 mg/dL (7-18); BUN/Creat Ratio 15.4 RATIO (10-20); Calcium,Total 8.7 mg/dL (8.5-10.1); Chloride 104 mmol/L (98-107); Creatinine, Serum 0.91 mg/dL (0.55-1.02); EST Glomerular Filtration Rate 66 mL/min (>60); Est Glom Filt Rate - Afr Amer 80 mL/min (>60); Estimated Creatinine Clearance 50.05 ml/min; Glucose 159 mg/dL (74-106); Potassium 3.8 mmol/L (3.5-5.1); Sodium Level 137 mmol/L (136-145)
[2017-06-22] MEDS: ALPRAZolam 0.5 MG Tablet PO (09:11)
[2017-06-22] MEDS: Ketorolac 15 MG/ML Vial IV (09:12)
--- NOTE | 2017-06-22 12:59 | PCM.DC ---
Discharge Activity: Return to Normal Activity, May not drive while taking narcotic pain medications., May Shower, Use Walker May shower in (days): 2 Ice area for (Minutes): 20 Weight Bearing Status: Weight bearing as tolerated Call your doctor if your incision/area has: Continuous Slow Oozing, Sudden Increased Bleeding, Increased Pain/ Swelling, Increased Redness, Foul Smelling Discharge, Swelling at the incision site Call your doctor if you observe: Fever of 101 or Higher, Coldness, Increased Pain, Numbness or Tingling, Change in Color, Inability to urinate, Inability to have a bowel movement, Using more than one pad per hour, Shortness of breath, Dizziness, Fainting spells, Swelling in the ankles, Chest pain, Prolonged hiccoughing, Increased palpitations (irregular heartbeat), Calf discomfort, Uncontrolled pain Suture Line Care: Avoid Pulling/Pushing, Avoid Pinching/Bending Change Dressing in (Days):: 5 Remove Dressing in (days):: 5 Cleanse incision/area with: Soap & Water Additional Dressing/Incision Instructions:: Remove dressing in 5 days. May shower at this time. Do not submerge wound. Replace Andrzej wrap as needed to protect wound. Wash hands prior to touching wound. Additional Instructions: 1. You are on Mirapex and Xanax at a high dose and now also narcotics. The combined effect of all these medications is to make you very lethargic. You did much better on the morning of discharge because the dose of the Xanax and the Mirapex were reduced. I think that you have sleep apnea. We did a test on the last night you were in the hospital and it showed that your oxygen drops significantly when you are sleeping. When the oxygen drops to lower than 88% you are at risk for problems with the rhythm of the heart and sudden . Your oxygen drops to less than 60% at times. Taking medications that make you sleepy and depress the breathing like Xanax, Mirapex, Narcotics are very dangerous in patients with oxygen levels this low. Even if you had a sleep study 3 years ago you need another because you have gained 52 lbs since 2013 according to our records and this affects breathing. You can follow up in the pulmonary department with Dr. Jiang or Dr. Pineda to arrange for a sleep study. There office is in the hospital. 2. Your BP was somewhat high in the hospital and I have increased the dose of the Lisinopril. You will now take 40 mg daily at bedtime. 3. I suggest you decrease the Xanax to 0.5 mg twice a day. I also suggest you take a smaller dose of Mirapex at bedtime and I have given you a prescription. Restless leg is caused by sleep apnea and it may go away if you get treated. sleep apnea causes MANY problems when not treated. I am giving you some literature to read. Depression is frequently caused by untreated sleep apnea.....in addition to lethargy, problems with memory, restless leg, addictions, etc. Pending Tests on Discharge: none Allergies/Adverse Reactions: Allergies ciprofloxacin [From Cipro] Allergy (Verified 05/16/17 13:03) Unknown escitalopram oxalate [From Lexapro] Allergy (Verified 05/16/17 13:03) Unknown heparin Allergy (Verified 05/16/17 13:03) Unknown mupirocin [From Bactroban] Allergy (Verified 05/16/17 13:03) Unknown trazodone Allergy (Verified 05/16/17 13:03) Unknown adhesive tape Adverse Reaction (Verified 05/16/17 13:03) Other Medications to take at Discharge Clopidogrel Bisulfate [Plavix] 75 mg PO QHS 08/25/15 Sertraline HCl [Zoloft] 50 mg PO DAILY 08/25/15 Atorvastatin Calcium [Lipitor] 40 mg PO QHS 01/27/16 L.acidoph,Paracasei, B.lactis [Probiotic] 1 ea PO DAILY 01/27/16 Pantoprazole Sodium [Protonix] 40 mg PO DAILY 01/27/16 Amlodipine Besylate [Norvasc] 10 mg PO QDAY 06/20/17 Docusate Sodium [Colace] 100 mg PO BID PRN PRN #30 cap 06/21/17 Famotidine [Pepcid] 20 mg PO BID #60 tab 06/21/17 Oxycodone HCl/Acetaminophen [Percocet 5/325] 1 - 2 tablet PO Q4H PRN PRN #60 tablet 06/21/17 ProMETHAzine [Phenergan] 25 mg PO Q4H PRN PRN #10 tab 06/21/17 ALPRAZolam [Xanax] 0.5 mg PO BID #1 06/22/17 Aspirin [Aspirin, Baby] 81 mg PO BID #60 tab.chew 06/22/17 Iron Polysaccharide Complex [Ferrex 150] 150 mg PO DAILYCM #30 cap 06/22/17 Lisinopril [Zestril] 40 mg PO QHS #30 tab 06/22/17 Multivitamins,Therapeutic [Multivitamin] 1 tablet PO DAILYCM tablet 06/22/17 Pramipexole Di-HCl [Mirapex] 0.5 mg PO QHS #30 tab 06/22/17 The following prescriptions were given: Oxycodone HCl/Acetaminophen [Percocet 5/325] 1 - 2 tablet PO Q4H PRN PRN #60 tablet PRN Reason: Pain ProMETHAzine [Phenergan] 25 mg PO Q4H PRN PRN #10 tab PRN Reason: Nausea Docusate Sodium [Colace] 100 mg PO BID PRN PRN #30 cap PRN Reason: Constipation Iron Polysaccharide Complex [Ferrex 150] 150 mg PO DAILYCM #30 cap Lisinopril [Zestril] 40 mg PO QHS #30 tab Pramipexole Di-HCl [Mirapex] 0.5 mg PO QHS #30 tab Aspirin [Aspirin, Baby] 81 mg PO BID #60 tab.chew Famotidine [Pepcid] 20 mg PO BID #60 tab Primary Care Physician: Sudheer Lion MD [Primary Care Provider] - Please follow up with your Primary Care Physician in: 1-2 weeks to check the blood pressure Please Follow Up With: Martir Chua DO When: call [facility] for appt for 2 weeks Please Follow Up With: Chris Pineda DO - pulmonary office When: 2 weeks to arrange a sleep study and pulmonary function tests Proposed Discharge Date: 06/22/17
--- NOTE | 2017-06-22 13:24 | PCM.DC.SUM ---
Discharge Date and Diagnosis Date of Admission: 04/21/13 Date of Discharge: 06/22/17 - Primary Discharge Diagnosis S/P elective R TKR 06/[address] Chua Nocturnal hypoxemia Uncontrolled HTN Newly diagnosed DM II - HGBA1C is 7.1% Sleep disordered breathing N/N anemia - likely due to blood loss from the surgery - Secondary Discharge Diagnosis Chronic Problems (Last Reviewed 06/06/17 @ 10:31 by Judith Mai) Coronary artery disease (Chronic) Morbid obesity (Chronic) Right sided cerebral infarction (Chronic) Hypertension (Chronic) Hyperlipidemia (Chronic) RLS Hospital Course and Treatment Imaging Results: Clinical Impression(s) from Imaging Studies Knee X-Ray 06/19/17 09:10 IMPRESSION: Total knee replacement. There is good alignment. Postoperative soft tissue changes. Electronically Signed: Boone Castro MD at 12:54 EDT Tel [phone], Service support , Laboratory Results - last 24 hr 06/21/17 06/22/17 06/22/17 05:30 08:20 08:20 WBC 9.6 RBC 3.48 L Hgb 9.5 L Hct 30.1 L MCV 86.5 MCH 27.3 MCHC 31.6 L RDW 14.6 RDW Differential 44.0 H Plt Count 333 MPV 9.9 Sodium 137 Potassium 3.8 Chloride 104 Carbon Dioxide 25.0 Anion Gap 8 BUN 14 Creatinine 0.91 Estim Creat Clear Calc 50.05 Est GFR (MDRD) Af Amer 80 Est GFR (MDRD) Non-Af 66 BUN/Creatinine Ratio 15.4 Glucose 159 H Hemoglobin A1c 7.1 H Calcium 8.7 Hospitalist service Operations: None, total knee replacement Procedures: - - overnight trending pulse ox Summary of Care Provided: Patient is a 61-year-old female with a history of hypertension, super obesity, coronary artery disease, hyperlipidemia, anxiety/depression with a previous suicide attempt and history of a right cerebral CVA who was admitted to the hospital following an elective right total knee replacement by Dr. Chua. The post operative course was complicated by hypersomnolence due to multiple sedating medications in a morbidly obese patient with untreated MARIA ESTHER. She has never had a sleep study. BP's were markedly increased at times and the hospitalist service was consulted to participate and manage medical co-morbidities. Medications were adjusted and the sedating meds were discontinued or the doses were decreased. She had fasting hyperglycemia and a HGBA1C was obtained and was increased at 7.1%. She has previously not carried a dx of DM II. An overnight trending pulse ox was done and the Oxygen saturation drops to < 60% at times. On the day of DC she was able to ambulate with a FWW and CGA. She was more alert and able to stay awake during my exam. She was discharged home on decreased doses of Xanax and Mirapex and the Lisinopril had been increased to 40 mg once daily at . She was strongly advised to follow up in the pulmonary office in 2 weeks to arrange PFT's and a PSG. She will follow up with Dr. Chua in the offive in [address] Lion in 1-2 weeks to discuss, diet, weight loss and treatment for newly diagnosed DM II. This note was generated with [employer] dictation software. It may contain incorrect words, spelling, and punctuation that were not noted in checking the note before signing. Discharge Activity: Return to Normal Activity, May not drive while taking narcotic pain medications., May Shower, Use Walker May shower in (days): 2 Ice area for (Minutes): 20 Weight Bearing Status: Weight bearing as tolerated Call your doctor if your incision/area has: Continuous Slow Oozing, Sudden Increased Bleeding, Increased Pain/ Swelling, Increased Redness, Foul Smelling Discharge, Swelling at the incision site Call your doctor if you observe: Fever of 101 or Higher, Coldness, Increased Pain, Numbness or Tingling, Change in Color, Inability to urinate, Inability to have a bowel movement, Using more than one pad per hour, Shortness of breath, Dizziness, Fainting spells, Swelling in the ankles, Chest pain, Prolonged hiccoughing, Increased palpitations (irregular heartbeat), Calf discomfort, Uncontrolled pain Suture Line Care: Avoid Pulling/Pushing, Avoid Pinching/Bending Change Dressing in (Days):: 5 Remove Dressing in (days):: 5 Cleanse incision/area with: Soap & Water Additional Dressing/Incision Instructions:: Remove dressing in 5 days. May shower at this time. Do not submerge wound. Replace Andrzej wrap as needed to protect wound. Wash hands prior to touching wound. Home Medications: Medications to take at Discharge Clopidogrel Bisulfate [Plavix] 75 mg PO QHS 08/25/15 Sertraline HCl [Zoloft] 50 mg PO DAILY 08/25/15 Atorvastatin Calcium [Lipitor] 40 mg PO QHS 01/27/16 L.acidoph,Paracasei, B.lactis [Probiotic] 1 ea PO DAILY 01/27/16 Pantoprazole Sodium [Protonix] 40 mg PO DAILY 01/27/16 Amlodipine Besylate [Norvasc] 10 mg PO QDAY 06/20/17 Docusate Sodium [Colace] 100 mg PO BID PRN PRN #30 cap 06/21/17 Famotidine [Pepcid] 20 mg PO BID #60 tab 06/21/17 Oxycodone HCl/Acetaminophen [Percocet 5/325] 1 - 2 tablet PO Q4H PRN PRN #60 tablet 06/21/17 ProMETHAzine [Phenergan] 25 mg PO Q4H PRN PRN #10 tab 06/21/17 ALPRAZolam [Xanax] 0.5 mg PO BID #1 06/22/17 Aspirin [Aspirin, Baby] 81 mg PO BID #60 tab.chew 06/22/17 Iron Polysaccharide Complex [Ferrex 150] 150 mg PO DAILYCM #30 cap 06/22/17 Lisinopril [Zestril] 40 mg PO QHS #30 tab 06/22/17 Multivitamins,Therapeutic [Multivitamin] 1 tablet PO DAILYCM tablet 06/22/17 Pramipexole Di-HCl [Mirapex] 0.5 mg PO QHS #30 tab 06/22/17 Following Prescrptions Were Given to Patient: Oxycodone HCl/Acetaminophen [Percocet 5/325] 1 - 2 tablet PO Q4H PRN PRN #60 tablet PRN Reason: Pain ProMETHAzine [Phenergan] 25 mg PO Q4H PRN PRN #10 tab PRN Reason: Nausea Docusate Sodium [Colace] 100 mg PO BID PRN PRN #30 cap PRN Reason: Constipation Iron Polysaccharide Complex [Ferrex 150] 150 mg PO DAILYCM #30 cap Lisinopril [Zestril] 40 mg PO QHS #30 tab Pramipexole Di-HCl [Mirapex] 0.5 mg PO QHS #30 tab Aspirin [Aspirin, Baby] 81 mg PO BID #60 tab.chew Famotidine [Pepcid] 20 mg PO BID #60 tab Primary Care Physician: Sudheer Lion MD [Primary Care Provider] - Please follow up with your Primary Care Physician in: 1-2 weeks to check the blood pressure Please Follow Up With: Martir Chua DO When: call [facility] for appt for 2 weeks Please Follow Up With: Chris Pineda DO - pulmonary office When: 2 weeks to arrange a sleep study and pulmonary function tests Minutes spent on discharge:: 30 Patient Condition:: Fair Meaningful Use Info Meaningful Use Diagnoses (Choose all that apply): None applicable Code Visit Inpatient E&M: 47453 Disch Hosp
[2017-06-22] MEDS: oxyCODONE 5 MG Tablet 15 MG PO (15:49)
[2017-06-22 15:51] VITALS: BP 168/54; PULSE 100; RESP 18; TEMP 36.5; O2SAT 97
--- NOTE | 2017-06-23 10:59 | PCM.DC.BLA ---
Discharge Summary Date of Admission: 06/19/17 Date of Discharge: 06/22/17 Summary: 61-year-old female who was recently admitted for a right total knee arthroplasty. Patient was admitted to the floor for 24 hours of IV antibiotics appropriate IV and p.o. pain medication DVT prophylaxis to include 325 mg p.o. twice daily of aspirin with GI prophylaxis. Patient was having hypertensive episodes and despite her home medications was not adequately controlled at which time the hospitalist team was consulted. They modified her medications at that point. Patient had complained of pain which was attempted to be adjusted accordingly however the patient became somnolent despite reporting pain. At that point time we removed any medication that may require increased somnolence with usage and advised the patient that she needs to discontinue depressed through with her current pain management. At rest the patient was adequately controlled with p.o. pain medication. Patient tolerated regular diet. She was amatory physical therapy. She was evaluated by case management and set up for home health. Patient has a history of a cerebrovascular accident that caused ipsilateral right hemiparesis to some degree. Patient has a history of using Plavix. That will be restarted at this point time the patient was then use 81 mg p.o. twice daily of aspirin for DVT prophylaxis. Assessment: Right knee osteoarthritis status post right total knee arthroplasty. History of cerebrovascular accident. Hypertension. Plan: Hospitalist team is also providing discharge summary in terms of medication usage and recommendation of following up with her PCP want to modify her hypertensive medication but also for recommendation for sleep study due to obstructive sleep apnea and desaturations during the evening time. Patient will continue with home health at this point. Again DVT prophylaxis to include 81 mg of aspirin p.o. twice daily with GI prophylaxis. Early aggressive range of motion and weightbearing and continue with FRANCI hose as long as patient is limited in overall ambulation. Patient may resume Plavix at this point time. Patient will follow-up with me in 2 weeks for a wound check and range of motion check. Any major issues please contact me.
== END 2017-06-22 16:02 | disposition home or self-care (01) | DRG 470 ==
LOC: ACINP 05:43 → MS3 08:21
PROVIDERS: Admitting Provider Orthopaedic Surgery; Family Provider Family Medicine; PCP Family Medicine; Visit Provider Internal Medicine
PROC: 0SRC0J9 Replacement of Right Knee Joint with Synthetic Substitute, Cemented, Open Approach (ICD-10-PCS; CPT 27447; principal; 2017-06-19 06:50)
DX: M17.11 Unilateral primary osteoarthritis, right knee (principal); D62 Acute posthemorrhagic anemia; E66.01 Morbid (severe) obesity due to excess calories; Z68.42 Body mass index [BMI] 45.0-49.9, adult; I69.351 Hemiplegia and hemiparesis following cerebral infarction affecting right dominant side; I25.10 Atherosclerotic heart disease of native coronary artery without angina pectoris; I10 Essential (primary) hypertension; E78.5 Hyperlipidemia, unspecified; E11.9 Type 2 diabetes mellitus without complications; G25.81 Restless legs syndrome
CPT/HCPCS: 36415; 73560; 80048; 83036; 85027; 88305; 88311; 93005; 97110; 97116; 97162; 97166; 97530; 97535; 97802; J7040; J7120; A4216

== ENCOUNTER 2017-06-25 23:05 | Emergency (ER) | payer MEDICARE, SELFPAY ==
[2017-06-25 23:07] VITALS: BP 132/68; PULSE 78; RESP 16; TEMP 36.8; O2SAT 97; BMI 47.5
[2017-06-26] MEDS: APIXABAN 5 MG TABLET 10 MG PO (00:05)
[2017-06-26] MEDS: HYDROmorphone 1 MG/ML Syringe 1.5 MG IM (00:05)
--- NOTE | 2017-06-26 00:08 | ED.DEP ---
ED Disposition - Plan for ED Patient: Disposition: Home or Assisted Living Chief Complaint: Lower Extremity Injury Instructions: Total Knee Replacement Referrals: Sudheer Lion MD [Primary Care Provider] - Martir Chua DO [STAFF PHYSICIAN] - Additional Instructions: Come tomorrow for outpatient ultrasound. Please follow instructions on outpatient ultrasound sheet.
--- NOTE | 2017-06-26 00:09 | ED.DCSUM_ITS ---
- ER Visit Summary Date of Service: 06/26/17 Chief Complaint: [] Right knee pain History of Present Illness: The patient is a 61 F [] complaining of right knee pain status post right total knee replacement [address] Chua. Patient reports taking Percocet which has mildly improved the pain. She is complaining of worsening pain and swelling of the knee. Patient spoke with her orthopedic surgeon who recommended she come to the emergency department for evaluation of her leg to rule out DVT. She presents at 11:30 PM. The ultrasound/Doppler office technician leaves at 11 PM. We are unable to provide that study at this time. Patient denies chest pain or shortness of breath. No other complaints at this time. Physical Examination: [] Afebrile, vital signs stable. The obese female in no acute distress. Cardiovascular exam is regular rate and rhythm. Lungs are clear to auscultation. Examination of the right knee reveals a normal-appearing surgical cicatrix without signs of infection. The wound is healing appropriately without signs of wound drainage. There is no erythema. There is slight swelling. No effusion. There is a negative Homans sign. There is no pain on calf palpation. Test Results: [] None. Emergency Department Course and Treatment: [] Patient was given a 10 mg dose of Eliquis because were unable to provide a Doppler ultrasound at this time. Patient was given 1.5 mg of IM Dilaudid for analgesia. She was encouraged to continue taking her previously prescribed Percocet for pain. She was instructed to dress her wound. We will provide an additional new dressing as I remove the dressing for the first time since the operation 6 days ago. Again it appears very well. Patient's felt that he was unable to care for her needs and was banding admission. I told him I felt this was inappropriate and that right now we will be able to provide his and outpatient form to come in tomorrow and obtain a Doppler ultrasound of the right lower extremity and that I would appropriately treat her pain prior to discharge. Treatment Plan: [] Follow-up with orthopedic surgeon. Present tomorrow for outpatient Doppler ultrasound. Eliquis orally 1 dose in the emergency department. Analgesia in the emergency department. Disposition: [] Discharge, stable. Impression: [] Right knee pain status post surgery This note was generated with [employer] software. It may contain incorrect words, spelling, and punctuation that were not noted in review of the chart prior to signing ED Disposition - Plan for ED Patient: Chief Complaint: Lower Extremity Injury Referrals: Sudheer Lion MD [Primary Care Provider] -
== END 2017-06-26 00:37 | disposition home or self-care (01) ==
PROVIDERS: Emergency Provider Emergency Medicine; Family Provider Family Medicine; PCP Family Medicine
DX: M25.561 Pain in right knee (principal); Z96.651 Presence of right artificial knee joint; E66.9 Obesity, unspecified; M19.90 Unspecified osteoarthritis, unspecified site; Z79.82 Long term (current) use of aspirin; Z79.02 Long term (current) use of antithrombotics/antiplatelets; Z79.891 Long term (current) use of opiate analgesic; Z79.899 Other long term (current) drug therapy
CPT/HCPCS: 96372; 99283

== ENCOUNTER → 2017-06-26 11:08 | Outpatient (CLI) | payer MEDICARE, SELFPAY ==
--- NOTE | 2017-06-26 11:12 | VDLE_ITS ---
Reason For Study: M79.89 RIGHT GSV is normal. CFV is compressible, spontaneous, phasic, competent and demonstrates normal augmentation. FV is compressible, spontaneous, phasic, competent and demonstrates normal augmentation. POP V is compressible, spontaneous, phasic, competent and demonstrates normal augmentation. T/P Trunk is compressible. PTV is compressible. RT PerV is compressible. Procedure Exam performed in department. The exam was of fair technical quality due to pt body habitus. A preliminary report was called and/or faxed to Dr. Chua. Interpretation Summary There is no evidence of right lower extremity deep vein thrombosis. Right greater saphenous vein appears patent and compressible segmentally. Ordering Physician: Laina Campos Referring Physician: Martir Chua Performed By: Radhames Padilla RVT
== END ==
PROVIDERS: Family Provider Family Medicine; PCP Family Medicine; Visit Provider Emergency Medicine
DX: M79.89 Other specified soft tissue disorders (principal)
CPT/HCPCS: 93971

== ENCOUNTER 2017-06-29 21:15 | Emergency (ER) | payer MEDICARE, SELFPAY ==
[2017-06-29 21:16] VITALS: BP 153/66; PULSE 79; RESP 18; TEMP 37; O2SAT 95; BMI 49.5
--- NOTE | 2017-06-29 21:33 | RAD_ITS ---
STUDY: X-RAY - RIGHT KNEE REASON FOR EXAM: Female, 61 years old. Fall. TECHNIQUE: 2 view(s) of the knee. COMPARISON: 04/21/2017 FINDINGS: There are stable postsurgical changes from a right knee arthroplasty with intact hardware and satisfactory alignment. There is no evidence of fracture or dislocation. There is diffuse soft tissue swelling. There are no radiodense foreign bodies. RAD/Knee 1 or 2 Views IMPRESSION: Stable postsurgical changes from a right knee arthroplasty with intact hardware and satisfactory alignment. No acute fracture or dislocation. Soft tissue swelling. Electronically Signed: Wilber Pulido, at 22:53 EDT Tel , Service support ,
--- NOTE | 2017-06-29 22:49 | ED.VISSUMM ---
- ER Visit Summary Date of Service: 06/29/17 Chief Complaint: Knee injury History of Present Illness: The patient is a 61 F is 2 weeks status post right total knee replacement by Dr. Chua presents to the emergency department with injury to right knee. Patient states that she was using her walker to turn. She lost her balance and tripped. She landed directly on her right knee. She did not strike her head. She denies loss of consciousness. She noted some bleeding in the knee. She states she is not having any significant pain. The patient denies any other injury. She called squad because of the bleeding and presented here. Physical Examination: Vital signs reviewed General: Well-nourished, well-developed Head: Normocephalic, atraumatic Eyes: Pupils equal and reactive, extraocular muscles intact Neck, supple, no lymphadenopathy Heart: Regular rate and rhythm Respiratory: No distress, clear bilaterally Abdomen: Soft, nontender, nondistended, no peritoneal signs Back: Nontender Extremities: Right knee shows normal postoperative change. There is a minimal amount of dehiscence at the mid third of the incision that is less than 1 cm. There is no purulence. The patient has no pain with motion. She has normal pulses. Skin: Normal color no rash Neuro: Alert and oriented, no focal or lateralizing deficits Test Results: X-ray shows hardware intact Emergency Department Course and Treatment: The patient landed directly on her knee. She does have a very minimal amount of dehiscence. I did obtain plain films. These are unremarkable. The patient's knee was cleaned. I did discuss care with Dr. Chaparro. The patient does have postop follow-up on Sunday. She is placed in a sterile dressing. She is counseled to keep this covered. She was counseled on wound care and reasons to return. At this time, I do not feel prophylactic antibiotics are necessary. The patient will be discharged home. Treatment Plan: [] Disposition: Discharge Impression: 1. Postoperative wound dehiscence secondary to fall This note was generated with [employer] dictation software. It may contain incorrect words, spelling, and punctuation that were not noted in review of the chart prior to signing ED Disposition - Plan for ED Patient: Chief Complaint: Fall Instructions: ED Wound Check Post Op Bleeding Referrals: Martir Chua DO [STAFF PHYSICIAN] -
[2017-06-29 23:11] VITALS: BP 171/77; PULSE 77; RESP 20; O2SAT 96
== END 2017-06-29 23:12 | disposition home or self-care (01) ==
LOC: ED 21:56
PROVIDERS: Emergency Provider Emergency Medicine; Family Provider Family Medicine; PCP Family Medicine
DX: T81.31XA Disruption of external operation (surgical) wound, not elsewhere classified, initial encounter (principal); Z96.651 Presence of right artificial knee joint; E66.9 Obesity, unspecified; I25.10 Atherosclerotic heart disease of native coronary artery without angina pectoris; I10 Essential (primary) hypertension; E78.00 Pure hypercholesterolemia, unspecified; Z79.82 Long term (current) use of aspirin; Z79.02 Long term (current) use of antithrombotics/antiplatelets; Z79.899 Other long term (current) drug therapy; W18.30XA Fall on same level, unspecified, initial encounter; Y93.89 Activity, other specified; Y92.009 Unspecified place in unspecified non-institutional (private) residence as the place of occurrence of the external cause; Y99.8 Other external cause status
CPT/HCPCS: 73560; 99285

== ENCOUNTER 2017-07-05 16:59 | Inpatient (IN) | payer MEDICARE, SELFPAY ==
[2017-07-05 17:00] VITALS: BP 133/69; PULSE 65; RESP 14; TEMP 36.8; O2SAT 93; BMI 43.7
--- NOTE | 2017-07-05 17:13 | CT_ITS ---
STUDY: CT BRAIN WITHOUT CONTRAST REASON FOR EXAM: Female, 61 years old. Right-sided weakness and hypertension RADIATION DOSAGE (If Supplied By Facility): CTDIvol = ( 60.81 ) mGy, DLP = ( 1067.08 ) mGycm TECHNIQUE: Transaxial CT imaging of the brain was performed without administration of intravenous contrast material. Individualized dose optimization techniques were used for this CT. COMPARISON: MRI of the brain December 04, 2016 FINDINGS: Normal soft tissue structures. Normal calvarium. Mild atrophy and periventricular white matter ischemic changes.. Possible old lacunar infarcts in left basal ganglia and posterior thalamus. Normal brainstem. Normal cerebellum. There is no intracranial hemorrhage. There are no findings of an acute ischemic infarction. Moderate mucosal thickening of the right maxillary sinus and mild mucosal thickening of the right ethmoid and sphenoid sinuses CT/Brain/Head without Contrast IMPRESSION: Atrophy and periventricular white matter ischemic changes. Question old left lacunar infarcts. No evidence for acute bleed. If concern for acute infarct MRI recommended Electronically Signed: Hoang Hart MD at 18:58 EDT , Service support ,
--- NOTE | 2017-07-05 17:14 | EKG12_ITS ---
Test Reason : ALTERED LOC Blood Pressure : / mmHG Vent. Rate : 077 BPM Atrial Rate : 077 BPM P-R Int : 156 ms QRS Dur : 086 ms QT Int : 390 ms P-R-T Axes : 066 054 063 degrees QTc Int : 441 ms Normal sinus rhythm with sinus arrhythmia Normal ECG Confirmed by LETA BOB, SHAYY ([id number]), photography editor HUE CASANOVA ([id number]) on 07/09/2017 1:25:38 PM Referred By: RITA Confirmed By:SHAYY GILLETTE MD
--- NOTE | 2017-07-05 17:20 | RAD_ITS ---
STUDY: X-RAY CHEST REASON FOR EXAM: Female, 61 years old. Altered level consciousness TECHNIQUE: AP portable COMPARISON: January 17, 2016 FINDINGS: Diminished inspiratory effort is seen. There does appear to be very mild pulmonary interstitial edema. There is mild asymmetric atelectasis or infiltrate at the left base. There is no demonstrated pleural abnormality. Heart is enlarged.. Normal mediastinum and aayush. Normal visualized pulmonary arteries. Normal visualized aortic arch and descending thoracic aorta. Dorsal spine demonstrates spondylosis. Normal visualized ribs, clavicles, and shoulders. There is no demonstrated abnormality of the visualized soft tissue structures of the upper abdomen. RAD/Chest 1 View (Portable) IMPRESSION: Mild pulmonary interstitial edema.. Focal left lower lobe atelectasis or evolving infiltrate Electronically Signed: Hoang Hart MD at 18:05 EDT , Service support ,
[2017-07-05 17:35] LABS: Absolute Lymphocyte Count 1.77 X10^3/ul (0.83-4.51); Absolute Neutrophil Count 6.7 X10^3/uL (2.0-7.7); Basophil# 0.16 X10^3/uL; Basophil% 1.6 % (0-1); Eosinophil# 0.45 X10^3/uL; Eosinophils% 4.6 % (0-5); Hemoglobin 9.3 g/dl (12.0-15.0); Lymphocyte # 1.77 X10^3/ul (4.0); Lymphocyte % 18.1 % (19-41); Mean Corpuscular Hgb 27.2 pg (27.0-32.0); Mean Corpuscular Volume 87.7 fL (81-99); Mean Platelet Vol. 9.7 fl (6.2-12.0); Monocyte# 0.72 X10^3/uL; Monocyte% 7.4 % (0-10); Neutrophil # 6.65 X10^3/uL (2.7-7.7); Neutrophil % 68.2 % (47-70); Platelet Count 408 K/mm3 (150-450); RBC Distribution Width SD 46.2 fl (35.1-43.9); Red Blood Count 3.42 M/mm3 (4.2-5.4); White Blood Count 9.8 K/mm3 (4.4-11.0)
[2017-07-05 17:38] LABS: POSITIVE COUNT NO; POSITIVE DIFFERENTIAL NO; POSITIVE MORPHOLOGY NO
[2017-07-05 17:41] LABS: Mucous, Urine 0 SEEN /hpf (<or=2+)
[2017-07-05 17:46] LABS: Color, Urine Yellow (Yellow); Glucose, Dipstick Normal (Normal); Ketone-Dipstick Negative (Negative); Nitrite-Dipstick Negative (Negative); Urine Clarity Turbid (Clear)
[2017-07-05 17:49] LABS: Anion Gap 7 (5-15); BUN 18 mg/dL (7-18); BUN/Creat Ratio 17.1 RATIO (10-20); Chloride 107 mmol/L (98-107); Creatinine, Serum 1.05 mg/dL (0.55-1.02); EST Glomerular Filtration Rate 56 mL/min (>60); Est Glom Filt Rate - Afr Amer 68 mL/min (>60); Estimated Creatinine Clearance 51.34 ml/min; Glucose 90 mg/dL (74-106); Potassium 4.3 mmol/L (3.5-5.1); Sodium Level 143 mmol/L (136-145)
[2017-07-05] MEDS: 0.9% Normal Saline 1,000 ML 150 ML IV (17:59)
[2017-07-05 18:00] LABS: Base Excess 2 mmol/L (-2 to +2); Bicarbonate 27.1 mmol/L (22-26); Blood Gas Specimen Type ART; O2 Delivery Device Room Air; PO2 58 mmHG (75-100); SITE L Brachial; SO2 90 % (95-99); Time Given 1750; Total Carbon Dioxide 28 mmol/L; pCO2 43.9 mmHg (35-45)
[2017-07-05 18:47] LABS: Leukocyte Esterase-Dipstick 500 /ul (Negative); Occult Blood-Urine 150 /ul (Negative); Protein-Dipstick 100 mg/dl (Negative); Urine Urobilinogen Normal (Normal)
[2017-07-05 18:48] LABS: Urine Bilirubin Dipstick Negative (Negative)
[2017-07-05 18:50] VITALS: BP 121/58; PULSE 63; RESP 16; O2SAT 96
[2017-07-05 18:50] LABS: Amorphous Sediment 1+ URATE; Bacteria RARE /hpf (None Seen); Red Blood Cells-Urine 50-100 SEEN /hpf (0-5); Squamous Epithelial Cells - UA 0-5 SEEN /hpf (5-10); White Blood Cells >100 SEEN /hpf (0-5)
--- NOTE | 2017-07-05 19:10 | ED.VISSUMM ---
- ER Visit Summary Date of Service: 07/05/17 Chief Complaint: [Mental status change] History of Present Illness: The patient is a 61 F [presents to the emergency department from home via EMS. Patient apparently was found on the floor this morning in a seated position just bobbing back and forth. Patient was helped to a chair. Patient has been less responsive than usual. Patient had a knee replacement 2 weeks ago performed by Dr. Martir Chua. On arrival patient denies any chest pain or shortness of breath. Patient denies any urinary symptoms. She denies any fever. Per she is not been complaining of chest pain or shortness of breath. Her states that he manages her pain medication and he does not believe that she has taken any extra narcotic pain medication. Patient has a history of chronic urinary tract infections.] Physical Examination: [HEENT-PERRLA, EOMI. Cranial nerves II through XII grossly intact. TMs clear. Mucous membranes moist. No adenopathy. Cardiovascular-regular rate and rhythm without murmur or ectopy Lungs-clear to auscultation, chest wall stable without crepitus or subcu emphysema Abdomen-normoactive bowel sounds, soft, nontender, no rebound or rigidity, no peritoneal signs. Neuro exam-patient somewhat somnolent however follows commands and moves all extremities. No focal deficits. Patient is alert to place and time. Extremities-intact ?4, normal range of motion, normal pulses, atraumatic]. Patient has healing scar to anterior right knee. Patient has some soft tissue swelling noted but no significant erythema. No drainage from the incision site. Pulses intact. Test Results: [EKG obtained on arrival shows sinus rhythm with occasional PACs. Patient's ventricular rate was 77 bpm. CBC with differential obtained showed a white count of 9.8, hemoglobin 9.3, hematocrit 30, platelets 408. Chemistries unremarkable. Troponin was less than 0.02. Urinalysis was positive for 500 leukocyte esterase and greater than 100 WBCs. ABG obtained showed a pH of 7.399 CO2 of 44 PO2 of 58 O2 sat was 90% on room air. Chest x-ray showed questionable left lower lobe atelectasis versus early infiltrate. CT scan of the brain showed atrophy and chronic changes otherwise nothing acute.] Emergency Department Course and Treatment: [Patient was started on Rocephin IV and was given normal saline.] Treatment Plan: [Admit for further workup and evaluation of her mental status change] Disposition: [Admit] Impression: [Mental status change UTI] This note was generated with [employer] dictation software. It may contain incorrect words, spelling, and punctuation that were not noted in review of the chart prior to signing ED Disposition - Plan for ED Patient: Chief Complaint: Alt LOC Referrals: Sudheer Lion MD [Primary Care Provider] -
--- NOTE | 2017-07-05 19:16 | ED.DCSUM_ITS ---
- ER Visit Summary Date of Service: 07/05/17 Chief Complaint: [Mental status change] History of Present Illness: The patient is a 61 F [presents to the emergency department from home via EMS. Patient apparently was found on the floor this morning in a seated position just bobbing back and forth. Patient was helped to a chair. Patient has been less responsive than usual. Patient had a knee replacement 2 weeks ago performed by Dr. Martir Chua. On arrival patient denies any chest pain or shortness of breath. Patient denies any urinary symptoms. She denies any fever. Per she is not been complaining of chest pain or shortness of breath. Her states that he manages her pain medication and he does not believe that she has taken any extra narcotic pain medication. Patient has a history of chronic urinary tract infections.] Physical Examination: [HEENT-PERRLA, EOMI. Cranial nerves II through XII grossly intact. TMs clear. Mucous membranes moist. No adenopathy. Cardiovascular-regular rate and rhythm without murmur or ectopy Lungs-clear to auscultation, chest wall stable without crepitus or subcu emphysema Abdomen-normoactive bowel sounds, soft, nontender, no rebound or rigidity, no peritoneal signs. Neuro exam-patient somewhat somnolent however follows commands and moves all extremities. No focal deficits. Patient is alert to place and time. Extremities-intact ?4, normal range of motion, normal pulses, atraumatic]. Patient has healing scar to anterior right knee. Patient has some soft tissue swelling noted but no significant erythema. No drainage from the incision site. Pulses intact. Test Results: [EKG obtained on arrival shows sinus rhythm with occasional PACs. Patient's ventricular rate was 77 bpm. CBC with differential obtained showed a white count of 9.8, hemoglobin 9.3, hematocrit 30, platelets 408. Chemistries unremarkable. Troponin was less than 0.02. Urinalysis was positive for 500 leukocyte esterase and greater than 100 WBCs. ABG obtained showed a pH of 7.399 CO2 of 44 PO2 of 58 O2 sat was 90% on room air. Chest x- ray showed questionable left lower lobe atelectasis versus early infiltrate. CT scan of the brain showed atrophy and chronic changes otherwise nothing acute. ] Emergency Department Course and Treatment: [Patient was started on Rocephin IV and was given normal saline.] Treatment Plan: [Admit for further workup and evaluation of her mental status change] Disposition: [Admit] Impression: [Mental status change UTI] This note was generated with [employer] dictation software. It may contain incorrect words, spelling, and punctuation that were not noted in review of the chart prior to signing ED Disposition - Plan for ED Patient: Chief Complaint: Alt LOC Referrals: Sudheer Lion MD [Primary Care Provider] -
[2017-07-05] MEDS: Ceftriaxone 1 GM/50 mL Premix x1 IV (19:22)
[2017-07-05 20:00] LABS: Lactic Acid 1.1 mmol/L (0.4-2.0)
--- NOTE | 2017-07-05 20:18 | HP.PCM_ITS ---
Problem List (1) UTI (urinary tract infection) Status: Acute Qualifiers: Urinary tract infection type: acute cystitis (2) Metabolic encephalopathy Status: Acute (3) Anxiety Status: Chronic (4) Depression Status: Chronic (5) Insomnia Status: Chronic (6) Suicide attempt by drug ingestion Status: Chronic (7) Coronary artery disease Status: Chronic (8) Hyperlipidemia Status: Chronic (9) Hypertension Status: Chronic (10) Morbid obesity Status: Chronic (11) Right sided cerebral infarction Status: Chronic (12) Sleep-disordered breathing Status: Chronic (13) Nocturnal hypoxemia Status: Chronic (14) Pulmonary hypertension Status: Chronic History of Present Illness Date of Admission: 07/05/17 Chief Complaint: found with altered level of consciousness by her The patient is a 61 year old F with a past medical history of sleep disordered breathing, hypertension, coronary artery disease, remote CVA, morbid obesity, hypertension, hyperlipidemia, restless leg syndrome, anxiety/ depression and polypharmacy with multiple sedating medications in a pt who drops into the low 60's on RA at night. She has been referred for a sleep study in the past but failed to show up. Recently in the hospital for a R TKR by Dr. Chua and getting PT at home. She is on Seroquel 100 mg Q HS, Baclofen 20 TID, Alprazolam, mirapex, narcotics and is also now taking an OTC cold prep which neither he nor her know the name of. She was brought to the ED at [facility] on 07/05/17 by squad after her found her sitting on the floor that morning rocking back and forth. She was not brought to the ER until 5 PM yet he found her sitting on the floor in the AM? He stated that she has been less responsive than normal. The reportedly manages her pain medications and he himself is in pain management. She has had a suicidal attempt in the past with drug OD. When she was in the hospital for the TKR she was very obtunded due to polypharmacy and stayed in the hospital longer than what is normal because she was so obtunded she could not participate in therapy. All the sedating medications were decreased at the time of that admission and MS Contin was discontinued. Vital signs at arrival to the emergency room were temperature 98.3, pulse rate 65, blood pressure 133/69, respiratory rate 14 and she was 93% saturated on room air. Chest x-ray was reported as possible left basilar infiltrate versus atelectasis. She is not coughing and I favor atelectasis secondary to decreased level of consciousness with hypoventilation. CT brain showed atrophy and periventricular white matter ischemic changes with probable old left lacunar infarcts. There were no acute findings. White blood cell count is normal at 9.8 with 68% neutrophils. Hemoglobin is stable at 9.3 and the platelets are within normal limits. An ABG on room air showed a pH of 7.40 PCO2 of 43 and a PO2 of 58. Electrolytes were within normal limits and the BUN was 18 with a creatinine of 1.05. Troponin was less than 0.02. A UA obtained from a Vaughan catheter showed 50-100 RBCs per high-power field and greater than 100 WBCs per high-power field with rare bacteria and +1 urate crystals. It was nitrite negative. At the time I examined her she was so somnolent I had to do a sternal rub to wake her up and she fell back to sleep several times during my attempts to get hx from her. The majority of the recent hx of obtained from the . She is now on both Duloxetine and sertraline and she was not on duloxetine at discharge from the hospital recently raising the possibility of serotonin S. These drugs are not generally used together because they both block serotonin reuptake and can cause serotonin S. She has never seen a psychiatrist. When I asked why she never saw a psychiatrist her told me that they barely leave the house and it is not convenient for them to see multiple doctors. Past Medical History Past Medical History (Chronic Problems): Chronic Problems (Last Reviewed 07/02/17 @ 14:45 by Hal Metzger) Sleep-disordered breathing (Chronic) Nocturnal hypoxemia (Chronic) Pulmonary hypertension (Chronic) Suicide attempt by drug ingestion (Chronic) Depression (Chronic) Anxiety (Chronic) Insomnia (Chronic) Coronary artery disease (Chronic) Morbid obesity (Chronic) Right sided cerebral infarction (Chronic) Hypertension (Chronic) Hyperlipidemia (Chronic) Allergies ciprofloxacin [From Cipro] Allergy (Verified 07/02/17 14:39) Unknown escitalopram oxalate [From Lexapro] Allergy (Verified 07/02/17 14:39) Unknown heparin Allergy (Verified 07/02/17 14:39) Unknown mupirocin [From Bactroban] Allergy (Verified 07/02/17 14:39) Unknown trazodone Allergy (Verified 07/02/17 14:39) Unknown adhesive tape Adverse Reaction (Verified 07/02/17 14:39) Other Home Medications: Ambulatory Orders Medication Instructions Recorded Clopidogrel Bisulfate [Plavix] 75 mg PO QHS 08/25/15 Sertraline HCl [Zoloft] 50 mg PO BID 08/25/15 Atorvastatin Calcium [Lipitor] 40 mg PO QHS 01/27/16 Pantoprazole Sodium [Protonix] 40 mg PO QHS 01/27/16 amlodipine 10 mg tablet 10 mg PO QDAY #90 tab 06/25/17 Lisinopril [Zestril] 20 mg PO BID 06/29/17 Metoprolol Tartrate 25 mg PO BID 06/29/17 Oxycodone HCl/Acetaminophen 2 tab PO Q6H PRN 06/29/17 [Oxycodon-Acetaminophen 7.5-325] Pramipexole Di-HCl [Mirapex] 1 mg PO QHS 06/29/17 ALPRAZolam [Xanax] 1 mg PO QHS 07/05/17 Aspirin [Aspirin, Baby] 81 mg PO DAILY 07/05/17 Baclofen 20 mg PO Q8H 07/05/17 Docusate Sodium [Colace] 100 mg PO QODAY 07/05/17 Duloxetine HCl [Duloxetine HCl] 60 mg PO DAILY 07/05/17 Famotidine [Pepcid] 20 mg PO BID 07/05/17 Iron Polysaccharide Complex 150 mg PO DAILYCM 07/05/17 [Ferrex 150] Ondansetron [Zofran Odt] 4 mg PO Q8H PRN PRN 07/05/17 Oxybutynin [Ditropan] 10 mg PO DAILY 07/05/17 Quetiapine Fumarate [Seroquel Xr] 100 mg PO QHS 07/05/17 Surgical History: cholecystectomy, hysterectomy, total knee arthroplasty - June [address] 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 Neurological: Reports: - - decreased level of consciousness Unable to obtain accurate/complete ROS d/t: limited ROS because the patient is obtunded and encephalopathic VTE Information - Inpt Only VTE Present on Admission: No VTE Mechan Device Prophylaxis: SCD's VTE Pharm Prophylaxis ordered?: Yes Patient Problems: Active and Suspected Problems (Last Reviewed 07/02/17 @ 14:45 by Hal Metzger) UTI (urinary tract infection) (Acute) Metabolic encephalopathy (Acute) - Physical Exam General: Well developed, Well nourished, - - She did not arouse with calling her name or shaking her shoulder but did arouse with a sternal rub but then kept falling asleep and I had to keep arousing her. she can not keep her eyes open. After she did awaken some she was rocking back and forth on her side HEENT: Atraumatic, PERRLA, EOMI, Normocephalic Oral: Dry Mucosa Lungs: Clear to auscultation, Diminished Cardiovascular: Regular rate, Regular Rhythm, Normal S1, Normal S2, Murmur - 2/ 6 systolic murmur at the second right intercostal space with radiation to the lower left sternal border and apex. Abdomen: Bowel Sounds Present, Soft, Non Tender, Non-Distended, Obese Extremities: No clubbing, No cyanosis, - - The right knee incision is healing well and the margins are well coapted with no erythema and no DC from the wound. there is still swelling Skin: No rashes, No breakdown Musculoskeletal: No Muscle Wasting Neurological: Cranial nerves II-XII grossly intact, Neuro grossly intact - she is moving all extremities and there is no facial asymmetry Vital Signs Temp Pulse Resp BP Pulse Ox 98.3 F 63 16 121/58 H 96 07/05/17 17:00 07/05/17 18:50 07/05/17 18:50 07/05/17 18:50 07/05/17 18:50 Oxygen Flow Rate (L/min) 2 Oxygen Delivery Method Nasal Cannula Weight: 271 lb 2.697 oz Body Mass Index (BMI) 43.7 Finger Stick Blood Glucose 97 Laboratory Tests Past 24 Hrs 07/05/17 07/05/17 07/05/17 17:15 17:15 17:34 WBC 9.8 RBC 3.42 L Hgb 9.3 L Hct 30.0 L MCV 87.7 MCH 27.2 MCHC 31.0 L RDW 15.0 H RDW Differential 46.2 H Plt Count 408 MPV 9.7 Immature Gran % (Auto) 0.100 Neut % (Auto) 68.2 Lymph % (Auto) 18.1 L Heard % (Auto) 7.4 Eos % (Auto) 4.6 Baso % (Auto) 1.6 H Absolute Neuts (auto) 6.7 Absolute Lymphs (auto) 1.77 Total Counted Not Reportable Specimen Type Sample Site pH Bicarbonate Actual POC Total CO2 Base Excess O2 Saturation ABG pCO2 ABG pO2 Jose Test O2 Delivery Device Blood Gas Notified Whom Blood Gas Notified Time Sodium 143 Potassium 4.3 Chloride 107 Carbon Dioxide 29.0 Anion Gap 7 BUN 18 Creatinine 1.05 H Estim Creat Clear Calc 51.34 Est GFR (MDRD) Af Amer 68 Est GFR (MDRD) Non-Af 56 L BUN/Creatinine Ratio 17.1 Glucose 90 Lactic Acid Calcium 9.0 Troponin I < 0.02 Urine Color Yellow Urine Clarity Turbid Urine pH 6.0 Ur Specific Nabb 1.020 Urine Protein 100 H Urine Glucose (UA) Normal Urine Ketones Negative Urine Occult Blood 150 H Urine Nitrite Negative Urine Bilirubin Negative Urine Urobilinogen Normal Ur Leukocyte Esterase 500 H Urine RBC 50-100 SEEN Urine WBC >100 SEEN Ur Squamous Epith Cells 0-5 SEEN Amorphous Sediment 1+ URATE Urine Bacteria RARE Urine Mucus 0 SEEN 07/05/17 07/05/17 17:56 19:15 WBC RBC Hgb Hct MCV MCH MCHC RDW RDW Differential Plt Count MPV Immature Gran % (Auto) Neut % (Auto) Lymph % (Auto) Heard % (Auto) Eos % (Auto) Baso % (Auto) Absolute Neuts (auto) Absolute Lymphs (auto) Total Counted Specimen Type ART Sample Site L Brachial pH 7.40 Bicarbonate Actual 27.1 H POC Total CO2 28 Base Excess 2 O2 Saturation 90 L ABG pCO2 43.9 ABG pO2 58 L Jose Test NA O2 Delivery Device Room Air Blood Gas Notified Whom ED Blood Gas Notified Time 1750 Sodium Potassium Chloride Carbon Dioxide Anion Gap BUN Creatinine Estim Creat Clear Calc Est GFR (MDRD) Af Amer Est GFR (MDRD) Non-Af BUN/Creatinine Ratio Glucose Lactic Acid 1.1 Calcium Troponin I Urine Color Urine Clarity Urine pH Ur Specific Nabb Urine Protein Urine Glucose (UA) Urine Ketones Urine Occult Blood Urine Nitrite Urine Bilirubin Urine Urobilinogen Ur Leukocyte Esterase Urine RBC Urine WBC Ur Squamous Epith Cells Amorphous Sediment Urine Bacteria Urine Mucus Assessment/Plan Active and Suspected Problems (Last Reviewed 07/02/17 @ 14:45 by Hal Metzger) UTI (urinary tract infection) (Acute) Metabolic encephalopathy (Acute) Impressions 1. UTI - has pyuria but, no fever and no Leukocytosis or left shift. Given Rocephin in the ER and will continue. Urine culture has been sent 2. altered mental status - possibly due to metabolic encephalopathy OR could be due to serotonin S. Due to the combined use of Zoloft and Cymbalta. Pt also has a hx of drug OD in the past in a suicide attempt and this can not be ruled out at this time. she will be admitted to the hospital and will decrease the dose of all sedating medications at this time. DC both the Sertraline and the duloxetine for now to see if she improves. 3. morbid obesity 4. sleep disordered breathing with severe nocturnal hypoxemia dropping into the low 60's while sleeping on an overnight trending pulse ox done at the time of the last admission. Has failed to show up for sleep study ordered by Dr. Lion in the past. She has seen Dr. Garcia in the past but, not recently 5. chronic pain S. - with narcotic dependence 6. Hypertension, history of CVA, hyperlipidemia, coronary artery disease, anxiety/depression, history of suicide attempt in the past, restless leg syndrome, poly-pharmacy complicate care management, prognosis and recovery. This pt is at high risk for sudden due to severe hypoxia while sleeping and use of multiple sedating medications. I urged the to have her follow up for a sleep study....he told me that she refuses. I will wean down all the sedating medications and in my opinion she should be weaned off all sedating medication if she continues to be non-compliant with follow up for a sleep study and treatment for suspected MARIA ESTHER. I would also refer to a psychiatrist to manage the anxiety and depression with hx of a suicide attempt. Code Visit Inpatient E&M: 31064 Init Hosp L3
[2017-07-05 21:02] VITALS: BMI 47.0; BMI 47.1
--- NOTE | 2017-07-05 21:40 | NURSING ---
Pt was non verbal on admit. helped with all the admit questions.
[2017-07-05 22:06] VITALS: BP 105/49; PULSE 58; RESP 18; TEMP 36.7; O2SAT 95
[2017-07-05 22:58] VITALS: RESP 18; O2SAT 95
[2017-07-05 23:00] VITALS: O2SAT 95
[2017-07-05] MEDS: oxyCODONE 5 MG Tablet PO (23:24)
[2017-07-05] MEDS: Famotidine 20 MG Tablet PO (23:25)
[2017-07-05] MEDS: Baclofen 10 MG Tablet PO (23:25)
[2017-07-05] MEDS: Pramipexole Di-HCl 0.5 MG Tablet PO (23:26)
[2017-07-05] MEDS: Atorvastatin Calcium 40 MG Tablet PO (23:27)
[2017-07-06] VITALS (8 sets, daily range): BP systolic 124–192; BP diastolic 54–116; PULSE 71–96; RESP 18–20; TEMP 36.6–37; O2SAT 93–95
[2017-07-06] MEDS: Metoprolol Tartrate 25 MG Tablet PO ×2 (01:41→08:28)
[2017-07-06] MEDS: Lisinopril 40 MG Tablet 20 MG PO (01:41)
[2017-07-06] MEDS: Baclofen 10 MG Tablet PO (04:38)
[2017-07-06] MEDS: oxyCODONE 5 MG Tablet PO ×5 (04:39→20:28)
[2017-07-06] MEDS: Aspirin 81 MG TAB.CHEW PO ×2 (08:27→17:33)
[2017-07-06] MEDS: Famotidine 20 MG Tablet PO (08:27)
[2017-07-06] MEDS: amLODIPine 10 MG Tablet PO (08:27)
[2017-07-06] MEDS: Pantoprazole Sodium 40 MG Tablet PO (08:27)
[2017-07-06] MEDS: Iron Polysaccharide Complex 150 MG CAPSULE PO (08:27)
[2017-07-06] MEDS: Baclofen 10 MG Tablet 5 MG PO ×2 (08:32→17:32)
[2017-07-06] MEDS: Ondansetron ODT 4 MG Tablet PO (08:50)
--- NOTE | 2017-07-06 10:13 | CASEMGMT ---
Social Work Assessment Referral Date: 07/06 Date of Assessment: 07/06 Reason for Consult: Mental Health Informant: Dr. Tami CHAKRABORTY met with pt for initial assessment to determine discharge plan and needs. Pt's was present in room at time. Patient was alert and orientated x3. Pt was orientated to her self/others, time, and to place. Pt was unable and/or refused to answer most questions throughout assessment. answered questions in regards to pt. Pt's states that the discharge plan is to go home. He states that at home pt has cane, walker, grab rails/bars and power chair. Pt's states that prior to admittance to [facility] pt was dependent with ADLS. Pt's states I am with her 30/10 to help her. had concerns that pt's current medications are affecting her in negative ways. SW encouraged pt's to talk to the doctor about his concerns. Pt's states understanding of this. SW asked pt and pt's if they would be interested in Home Health Care for therapy and pt's states that they already have therapy through [facility]. Pt's states that pt is doing well with therapy. Pt's denied additional needs and concerns at this time. Substance Abuse Hx: Pt denied. Mental Health Hx: SW asked pt and pt's if pt would be interested in counseling services or following up with a psychiatrist. Pt's states Why would she need counseling services. SW explained that if there was a history of any depression, anxiety, bipolar, suicide attempts, etc. that following up with counseling services and/or psychiatrist could be beneficial to pt's mental health. Pt's denied need for counseling services. Pt denied at this time. Pt denied current suicidal/homicidal thoughts/plans/ideations by stating no. Block Splitter Operator will follow up with pt again to ask her if she would be interested in mental health treatment. Interventions: Initial assessment to determine needs. Pt and pt's denied additional needs or concerns at this time. Plan: Discharge home and resume Home Health Therapy with [facility]. Block Splitter Operator will continue to follow and will address additional needs and concerns with pt at a later time. Jaymie Reynolds METER ATTENDANT, ENVIRONMENTAL SERVICES COORDINATOR
[2017-07-06] MEDS: Ceftriaxone 1 GM/50 ML BAG IV (10:41)
[2017-07-06] MEDS: Enoxaparin 40 MG/0.4 ML Syringe SC (10:41)
[2017-07-06] MEDS: QUEtiapine 25 MG Tablet 50 MG PO (13:42)
--- NOTE | 2017-07-06 14:35 | RAD_ITS ---
STUDY: X-RAY - RIGHT KNEE REASON FOR EXAM: Female, 61 years old. Postop pain TECHNIQUE: 2 view(s) of the knee. COMPARISON: June 29, 2017 FINDINGS: Knee prosthesis is noted in anatomic alignment and position.. There is no evidence for acute fracture however there does appear to be mild medial subluxation of the femoral-tibial joint on the AP view although this may be positional artifact.. Would recommend clinical correlation and possibly repeat imaging in the AP projection RAD/Knee 1 or 2 Views IMPRESSION: Status post prosthesis placement without evidence for acute fracture. Cannot exclude medial subluxation versus positioning artifact. Electronically Signed: Hoang Hart MD at 19:06 EDT , Service support ,
--- NOTE | 2017-07-06 15:10 | CON.PCM_ITS ---
Problem List (1) Metabolic encephalopathy Status: Acute Reason for Consult Date of Consultation: 07/06/17 Reason for Consultation: Encephalopathy History of Present Illness: The patient is a 61 year old CF with PMH HTN, HLD, old stroke in 2005 with residual right sided weakness per , RLS, CAD, morbid obesity, anxiety/ depression, recent right TRK about 2 weeks ago admitted with AMS. Patient is currently having severe right knee pain and is rocking back and forth in the bed in severe pain, history could not be obtained from the patient, is obtained from the and medical records, per following the knee replacement about 2 weeks ago, she came to the ED after 3 days of surgery with severe knee pain, was given Dilaudid with some relief, then later met the surgeon who increased the Percocet dose which had helped per , then yesterday after taking the medications in the morning, patient was less responsive and was found on the floor per documentation, and was later brought to the ED. There was not witnessed seizures, patient is on multiple psych medications like duloxetine, Seroquel and Zoloft, also is on Xanax and baclofen as well as on narcotics. There has been no documented myoclonic jerks, rigidity or hyperthermia since admission. At present patient denies any SHORT, visual disturbances, new onset speech disturbances, focal motor weakness or sensory loss, but is very restless due to right knee pain. Past Medical History Past Medical History (Chronic Problems): Chronic Problems (Last Reviewed 07/02/17 @ 14:45 by Hal Metzger) Sleep-disordered breathing (Chronic) Nocturnal hypoxemia (Chronic) Pulmonary hypertension (Chronic) Suicide attempt by drug ingestion (Chronic) Depression (Chronic) Anxiety (Chronic) Insomnia (Chronic) Coronary artery disease (Chronic) Morbid obesity (Chronic) Right sided cerebral infarction (Chronic) Hypertension (Chronic) Hyperlipidemia (Chronic) Allergies ciprofloxacin [From Cipro] Allergy (Verified 07/02/17 14:39) Unknown escitalopram oxalate [From Lexapro] Allergy (Verified 07/02/17 14:39) Unknown heparin Allergy (Verified 07/02/17 14:39) Unknown mupirocin [From Bactroban] Allergy (Verified 07/02/17 14:39) Unknown trazodone Allergy (Verified 07/02/17 14:39) Unknown adhesive tape Adverse Reaction (Verified 07/02/17 14:39) Other Home Medications: Ambulatory Orders Medication Instructions Recorded Clopidogrel Bisulfate [Plavix] 75 mg PO QHS 08/25/15 Sertraline HCl [Zoloft] 50 mg PO BID 08/25/15 Atorvastatin Calcium [Lipitor] 40 mg PO QHS 01/27/16 Pantoprazole Sodium [Protonix] 40 mg PO QHS 01/27/16 amlodipine 10 mg tablet 10 mg PO QDAY #90 tab 06/25/17 Lisinopril [Zestril] 20 mg PO BID 06/29/17 Metoprolol Tartrate 25 mg PO BID 06/29/17 Oxycodone HCl/Acetaminophen 2 tab PO Q6H PRN 06/29/17 [Oxycodon-Acetaminophen 7.5-325] Pramipexole Di-HCl [Mirapex] 1 mg PO QHS 06/29/17 ALPRAZolam [Xanax] 1 mg PO QHS 07/05/17 Aspirin [Aspirin, Baby] 81 mg PO DAILY 07/05/17 Baclofen 20 mg PO Q8H 07/05/17 Docusate Sodium [Colace] 100 mg PO QODAY 07/05/17 Duloxetine HCl [Duloxetine HCl] 60 mg PO DAILY 07/05/17 Famotidine [Pepcid] 20 mg PO BID 07/05/17 Iron Polysaccharide Complex 150 mg PO DAILYCM 07/05/17 [Ferrex 150] Ondansetron [Zofran Odt] 4 mg PO Q8H PRN PRN 07/05/17 Oxybutynin [Ditropan] 10 mg PO DAILY 07/05/17 Quetiapine Fumarate [Seroquel Xr] 100 mg PO QHS 07/05/17 Surgical History: cholecystectomy, hysterectomy, total knee arthroplasty - June [address] 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 bld Lives: Spouse/ Significant Other Smoking Status: Never smoker Tobacco Use: Non-smoker Alcohol: Rare Drugs: - - only what is prescribed for her - *Family History Maternal History Items: No pertinent history Paternal History Items: No pertinent history Review of Systems Constitutional: Reports: - - complete ROS negative except as documented in HPI Patient Problems: Active and Suspected Problems (Last Reviewed 07/02/17 @ 14:45 by Hal Metzger) UTI (urinary tract infection) (Acute) Metabolic encephalopathy (Acute) - Physical Exam General: Alert HEENT: Normocephalic Neck: Supple Lungs: Clear to auscultation Cardiovascular: Normal S1, Normal S2 Abdomen: Bowel Sounds Present Extremities: No cyanosis Skin: No breakdown Musculoskeletal: - - is complaining of severe right knee pain and is rocking back and forth in the bed Neurological: - - consious, awake, AoAx 2, CN 2-12 grossly intact, limited neurology examiantion due to patient complaining of constant severe right knee pain and is not answering all questions at present, power 5/5 left UE and LE, right LE difficult to examine due to pain, right UE could not be assessed since patient is lying on the side almost right lateral and is just rocking back and forth in pain, denies any sensory loss, no cerebellar signs, gait deferred, reflexes could not be assessed Vital Signs Temp Pulse Resp BP Pulse Ox 98.2 F 83 18 159/74 H 95 07/06/17 08:24 07/06/17 08:28 07/06/17 08:24 07/06/17 08:24 07/06/17 08:43 Oxygen Flow Rate (L/min) 2 Oxygen Delivery Method Room Air Weight: 116.7 kg Body Mass Index (BMI) 47.0 Intake and Output for Last 24 Hours 07/04/17 07/05/17 07/06/17 23:59 23:59 23:59 Intake Total 1711 / 1711 Output Total 1950 / 1950 Balance -239 / -239 Assessment/Plan Active and Suspected Problems (Last Reviewed 07/02/17 @ 14:45 by Hal Metzger) UTI (urinary tract infection) (Acute) Metabolic encephalopathy (Acute) The patient is a 61 year old CF with PMH HTN, HLD, old stroke in 2005 with residual right sided weakness per , RLS, CAD, morbid obesity, anxiety/ depression, recent right TRK about 2 weeks ago admitted with AMS. Patient is currently having severe right knee pain and is rocking back and forth in the bed in severe pain, history could not be obtained from the patient, is obtained from the and medical records, per following the knee replacement about 2 weeks ago, she came to the ED after 3 days of surgery with severe knee pain, was given Dilaudid with some relief, then later met the surgeon who increased the Percocet dose which had helped per , then yesterday after taking the medications in the morning, patient was less responsive and was found on the floor per documentation, and was later brought to the ED. There was not witnessed seizures, patient is on multiple psych medications like duloxetine, Seroquel and Zoloft, also is on Xanax and baclofen as well as on narcotics. There has been no documented myoclonic jerks, rigidity or hyperthermia since admission. At present patient denies any SHORT, visual disturbances, new onset speech disturbances, focal motor weakness or sensory loss, but is very restless due to right knee pain. Impression Likely Metabolic encephalopathy Symptoms could be due to polypharmacy and narcotic use Plan -CT head-report reviewed- nothing acute -Recommend MRI brain -Labs reviewed -Recommend LFTs, ammonia level, Vitamin B12 level, TSH, CK -UA- WBCs+, LE+ -Further medical management per primary team -Will defer knee pain management to primary team and orthopedics -GI/DVT prophylaxis -Fall precautions -Please call with questions if any -Thank you for allowing us to participate in patient's care and management I spent 60 minutes taking history, doing physical examination, reviewing medical records, coordinating care and counseling the patient. Code Visit Inpatient E&M: 25162 Init Hosp L3
--- NOTE | 2017-07-06 15:15 | NURSING ---
Addendum entered by Jessika Alberts 07/06/17 16:37: When pt ordered x1 dose of seroquel- pt states that is a baby dose- I take 400mg at home. Education provided about meds and oxygen levels- will need reinforcement. Original Note: At start of the shift patient's was very upset and Ana requested this RN to come to room. This RN entered and asked patient if she was ok- glared at this RN and stated, does she look like she is ok? He then launched into complaining about the physician who had admitted patient to the MS unit. He states that he was told that he was aiding her to commit suicide by not taking her to have her sleep study. He stated concern about patients restlessness. 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 states that patient has been on these medications for at least 3 months and would call his pharmacy to tell this nurse. This RN researched patient's previous stay. Printed off discharge instructions and highlighted area that discussed that patient needed sleep study due to spo2= 60% at night. stated that there is no reason for a sleep study because they will tell her she has it, needs a machine and then will not be able to keep it on. Education provided- and again encouragement for sleep study. He also states that patient was discharged from this hospital on zoloft AND cymbalta. Notified patient's that cymbalta was stopped and not on patient's medication list when discharged from hospital. Also notified that 's progress note, during previous stay, stated that patient would need to be on zoloft or cymbalta to prevent seratonin symdrome. Understanding verbalized. Upon start of shift patient was rocking back in forth in the bed- toward her right side she has been very hot- room temperature turned as low as possible and fan placed in room, on high- directly on pt. Cool cloth given for pt's forehead. Pt refuses to lay on her back and is on her right hip. she was alert and oriented x2- however, pt would not answer many questions following initial assessment and appeared as though she would'd look at this RN. Per report from night guard- she did this most of the night and did not sleep. Later in the morning patient began to have pauses in her rocking and would sit still for a few minutes in the bed, before returning to her rocking. Patient's states that she began this restlessness Sunday night. patient's was speaking to family in the room, while TEDDY Perez present sitting in with patient was present. Per Ana- stated that he gave patient 2 xanax yesterday and family was asking if that is what caused her unresponsiveness. The unresponsiveness is what brought patient to ER. 3 other family members were in room and every family member was voicing their opinion on what should be done. Some family members were discussing their psych history and what meds they are on.
--- NOTE | 2017-07-06 16:20 | PN_ITS ---
Patient Problems: Active and Suspected Problems (Last Reviewed 07/02/17 @ 14:45 by Hal Metzger) UTI (urinary tract infection) (Acute) Metabolic encephalopathy (Acute) Subjective: The patient was admitted last night with restlessness, altered mental status, confusion, rocking back and forth. Patient is on multiple antipsychotic medications including Seroquel, Zoloft, duloxetine and also on baclofen and Xanax and oxycodone. Patient does not have tachycardia, tachypnea or hypothermia therefore does not seem to be serotonin syndrome. Denies focal symptoms including motor weakness or acute sensory loss or visual disturbances or headache. Discussed with the neurologist. Vitals/I&O's: Vital Signs Temp Pulse Resp BP Pulse Ox 98.6 F 71 18 185/98 H 93 07/06/17 14:25 07/06/17 14:25 07/06/17 14:25 07/06/17 14:25 07/06/17 14:25 Oxygen Flow Rate (L/min) 2 Oxygen Delivery Method Room Air Weight: 257 lb 4.471 oz Body Mass Index (BMI) 47.0 Intake and Output for Last 24 Hours 07/04/17 07/05/17 07/06/17 23:59 23:59 23:59 Intake Total 1711 / 1711 Output Total 1950 / 1950 Balance -239 / -239 General: Disoriented, Lethargic, - - Restless and agitated HEENT: Atraumatic, PERRLA, EOMI, Normocephalic Oral: Dry Mucosa Neck: Supple Lungs: Clear to auscultation, Diminished Cardiovascular: Regular rate, Regular Rhythm, Normal S1, Normal S2, No murmurs Abdomen: Bowel Sounds Present, Soft, Non Tender, Non-Distended Extremities: No edema, Capillary Refill Less than 3 Seconds Skin: No rashes, No breakdown Musculoskeletal: No Tenderness to Palpation of Joints or Extremities, Arthritic Changes Neurological: - - Nonfocal exam. Patient is rocking back and forth. Her movements does not follow pattern of Chorea, tremors or myoclonic jerks Current Medications Alprazolam (Xanax) 0.5 mg PO BID [facility] Amlodipine Besylate (Norvasc) 10 mg PO DAILY [facility] Last Admin: 07/06/17 08:27 Dose: 10 mg [facility]ir[facility], [facility]) [facility] Last Admin: 07/06/17 08:27 Dose: 81 mg Atorvastatin Calcium (Lipitor) 40 mg PO QHS [facility] Last Admin: 07/05/17 23:27 Dose: 40 mg Baclofen (Lioresal) 5 mg PO Q8 [facility] Last Admin: 07/06/17 08:32 Dose: 5 mg Clopidogrel Bisulfate (Plavix) 75 mg PO QHS [facility] Docusate Sodium (Colace) 100 mg PO QODAY [facility] Enoxaparin Sodium (Lovenox) 40 mg SC DAILY@1000 [facility] Last Admin: 07/06/17 10:41 Dose: 40 mg Famotidine (Pepcid) 20 mg PO BID [facility] Last Admin: 07/06/17 08:27 Dose: 20 mg Ceftriaxone Sodium (Rocephin) 1 gm in 50 mls @ 100 mls/hr IV Q24 [facility] Last Admin: 07/06/17 10:41 Dose: 100 mls/hr Lisinopril (Zestril) 20 mg PO QHS [facility] Last Admin: 07/06/17 01:41 Dose: 20 mg Magnesium Hydroxide (Milk Of Magnesia) 30 ml PO DAILY PRN PRN PRN Reason: Constipation Metoprolol Tartrate (Lopressor (Beta Ana)) 25 mg PO BID [facility] Last Admin: 07/06/17 08:28 Dose: 25 mg Nutritional Formula (Lactose Free) (Ensure Enlive) 120 ml PO 4X/DAY [facility] Last Admin: 07/06/17 14:13 Dose: Not Given Ondansetron HCl (Zofran Odt) 4 mg PO Q8H PRN PRN PRN Reason: NAUSEA Last Admin: 07/06/17 08:50 Dose: 4 mg Oxycodone HCl (Oxyir) 5 - 10 mg PO Q4H PRN PRN PRN Reason: PAIN Last Admin: 07/06/17 13:42 Dose: 5 mg Pantoprazole Sodium (Protonix) 40 mg PO DAILY [facility] Last Admin: 07/06/17 08:27 Dose: 40 mg Phenazopyridine HCl (Azo Standard) 190 mg PO TID PRN PRN PRN Reason: urgency Polysaccharide Iron Complex (Ferrex 150) [facility] Last Admin: 07/06/17 08:27 Dose: 150 mg Pramipexole Dihydrochloride (Mirapex) 0.5 mg PO QHS [facility] Last Admin: 07/05/17 23:26 Dose: 0.5 mg Quetiapine Fumarate (Seroquel) 25 mg PO QHS [facility] Sertraline HCl (Zoloft) 50 mg PO DAILY [facility] Sodium Chloride () 5 - 30 ml IV UD PRN PRN Reason: SALINE FLUSH Tolterodine Tartrate (Detrol La) 2 mg PO DAILY [facility] Medical Necessity - Tobacco Use Smoking Status: Never smoker Tobacco Use: Non-smoker Assessment/Plan Active and Suspected Problems (Last Reviewed 07/02/17 @ 14:45 by Hal Metzger) UTI (urinary tract infection) (Acute) Metabolic encephalopathy (Acute) This is a 61-year-old female with multiple comorbidities including hypertension, dyslipidemia old stroke in 2005 with residual right sided weakness per , RLS, CAD, morbid obesity, anxiety/depression, recent right TRK about 2 weeks ago is being admitted with AMS. Patient has restlessness, diffuse body movement but does not follow a pattern of Chorea, athetosis, tremor or myoclonic jerks. Patient denies focal symptoms of headache , dysarthria, aphasia or focal motor weakness or sensory loss. 1. Acute encephalopathy most probably due to polypharmacy/narcotic use with metabolic and infectious encephalopathy from UTI: The patient is being admitted on MedSurg floor. Discussed with the neurologist. MRI brain ordered. Ammonia level is normal. CK mildly elevated. LFTs within normal limits except alkaline phosphatase 176. ABG 7.4/40 3 on room air. Patient had a sitter. Baclofen dose, Zoloft meds and Xanax dose decreased and try to taper off. Medication reconciliation done. Treat the underlying cause. 2. Acute UTI: Preliminary urine culture shows gram-negative nuvia lactose network development coordinator, more than 100,000 colonies. On IV Rocephin. UA is positive of pyuria, proteinuria and RBC. Need to repeat UA after treatment of UTI probably outpatient. 3. Recent right TKR on 06/19/2017: Patient had post operative right knee x-ray on on 06/19 and 06/29/2017, postoperative and showed stable postsurgical changes from right knee arthroplasty with intact prosthesis. Mild soft tissue swelling. Repeat knee x-ray ordered as the patient's had concern about right knee pain and requirement of morphine. 4. Sleep disorder possible due to obesity hypoventilation syndrome: As per the H&P patient had severe nocturnal hypoxemia, pulse ox dropped into the low 60s while sleeping during last admission. At the time of previous discharge, sleep study was ordered. Patient had failed to show up with sleep study and history of noncompliance as per PCP, Dr. Lion Multiple comorbidities including chronic pain syndrome, hypertension, history of a stroke, dyslipidemia, coronary artery disease, anxiety and depression, history of suicidal attempt in the past, restless leg syndrome and polypharmacy: DVT prophylaxis on Lovenox and bilateral FRANCI hose Clinical Impression(s) from Imaging Studies Brain CT 07/05/17 17:13 IMPRESSION: Atrophy and periventricular white matter ischemic changes. Question old left lacunar infarcts. No evidence for acute bleed. If concern for acute infarct MRI recommended Chest X-Ray 07/05/17 17:20 IMPRESSION: Mild pulmonary interstitial edema.. Focal left lower lobe atelectasis or evolving infiltrate Electronically Signed: Hoang Hart MD at 18:05 EDT , Service support , Microbiology Past 72 Hours 07/05/17 17:34 Urine, Clean Catch Urine Culture - Preliminary GNR lactose network development coordinator Laboratory Results 07/05/17 17:15: WBC 9.8, RBC 3.42 L, Hgb 9.3 L, Hct 30.0 L, MCV 87.7, MCH 27.2, MCHC 31.0 L, RDW 15.0 H, RDW Differential 46.2 H, Plt Count 408, MPV 9.7, Immature Gran % (Auto) 0.100, Neut % (Auto) 68.2, Lymph % (Auto) 18.1 L, [place] % (Auto) 7.4, Eos % (Auto) 4.6, Baso % (Auto) 1.6 H, Absolute Neuts (auto) 6.7, Absolute Lymphs (auto) 1.77, Total Counted Not Reportable 07/05/17 17:15: Sodium 143, Potassium 4.3, Chloride 107, Carbon Dioxide 29.0, Anion Gap 7, BUN 18, Creatinine 1.05 H, Estim Creat Clear Calc 51.34, Est GFR ( MDRD) Af Amer 68, Est GFR (MDRD) Non-Af 56 L, BUN/Creatinine Ratio 17.1, Glucose 90, Calcium 9.0, Troponin I < 0.02 07/05/17 17:15: Total Bilirubin 0.30, Direct Bilirubin 0.06, AST 44 H, ALT 25, Alkaline Phosphatase 176 H, Total Creatine Kinase 867 H, Total Protein 7.1, Albumin 3.3, Globulin 3.8, TSH 1.14 07/05/17 17:15: Vitamin B12 453 07/05/17 17:34: Urine Color Yellow, Urine Clarity Turbid, Urine pH 6.0, Ur Specific [place] 1.020, Urine Protein 100 H, Urine Glucose (UA) Normal, Urine Ketones Negative, Urine Occult Blood 150 H, Urine Nitrite Negative, Urine Bilirubin Negative, Urine Urobilinogen Normal, Ur Leukocyte Esterase 500 H, Urine RBC 50-100 SEEN, Urine WBC >100 SEEN, Ur Squamous Epith Cells 0-5 SEEN, Amorphous Sediment 1+ URATE, Urine Bacteria RARE, Urine Mucus 0 SEEN 07/05/17 17:56: Specimen Type ART, Sample Site L Brachial, pH 7.40, Bicarbonate Actual 27.1 H, POC Total CO2 28, Base Excess 2, O2 Saturation 90 L, ABG pCO2 43.9, ABG pO2 58 L, Jose Test NA, O2 Delivery Device Room Air, Blood Gas Notified Whom ED MD, Blood Gas Notified Time 1750 07/05/17 19:15: Lactic Acid 1.1 07/06/17 16:14: Ammonia 30.0 This note was generated with [employer] dictation software. Every effort was made to ensure accuracy, however computerized sander hand mistakes may persist. Code Visit Inpatient E&M: 25870 Subs Hosp L3
[2017-07-06 16:49] LABS: AST(SGOT) 44 U/L (15-37); Alanine Aminotransfer ALT/SGPT 25 U/L (13-56); Albumin, Serum 3.3 g/dL (3.2-5.0); Alkaline Phosphatase 176 U/L (45-117); Bilirubin, Direct 0.06 mg/dL (0.00-0.30); CPK Total, Creatine Kinase 867 U/L (26-192); Globulin 3.8 g/dL (2.2-4.2); Protein, Total 7.1 g/dL (6.4-8.2); Thyroid Stim Hormone (TSH) 1.14 uIU/mL (0.358-3.74); Vitamin B12 453 pg/mL (211-911)
[2017-07-06] MEDS: 0.9% NaCl Peripheral Flush Adult/Peds IV (17:31)
[2017-07-06] MEDS: Morphine 2 MG/ML Syringe IV (17:32)
--- NOTE | 2017-07-06 17:52 | NURSING ---
Entered patient's room at this time- states that he doesn't understand why the hospitalist thinks he is smarter than the PCP. This RN asked for clarification. states that the PCP placed the patient on both Cymbalta and zoloft and he is sure that the PCP looked into the side effects prior to doing so. This RN stated that it is possible that the hospitalist last admission had ordered some new medications that may have caused her to come to that decision or maybe saw something that concerned her. states that he was talking earlier this shift, after reading information on the internet, that pain medication in addition to 2 depression meds can potentiate serotonin syndrome. He looked at this RN and stated, and some staff member thought that I was crazy when I said that. I think it was you. (referring to this RN.) Notified patient's that this RN did not ever say that he was crazy. Notified him that this RN stated that I was uncertain if that was a possibility or not and that this RN had not come across that previously. Pt nodded in response to this RN. Ana,TASSEL CLIPPER present in room throughout day and during this conversation, as well as previous conversation.
--- NOTE | 2017-07-06 18:32 | NURSING ---
Addendum entered by Jessika Alberts 07/06/17 18:33: teds applied after order from Dr. Ribeiro at 1400 Original Note: pt refusing scd's- teds ordered and applied
--- NOTE | 2017-07-06 20:45 | NURSING ---
Patient resting in bed on her Right side, is restless. Patient awake but unable to answer any questions asked of her. Patient pointed to her right knee when asked if was in pain. This nurse took patient's vital signs. Patient's asked what her pulse ox was and this nurse told him it was 95% on room air at this time. Patient's asked if there was a blood test that measured her pulse ox and this nurse told him that a blood gas was completed 07/05 and O2 [place] was 90 per blood gas. Patient's asked about the Geodon for patient at bedtime to help her sleep. This nurse told the patient's that status would be assessed at 2200 when her nighttime pills are due as to whether or not she will need the Geodon. Patient's said that the tall nurse said she would get that to help her sleep. I explained to the patient's that Geodon is a antipsychotic medication and that this nurse would probably not give it unless patient was a danger to herself or others. I told patient's that I would print him out some information on Geodon. Patient's stated I will not read it. Patient's was not satisfied with this nurses response that Geodon would not be given to help patient sleep unless patient's and other's safety was at risk. This nurse printed out information regarding Geodon for patient's but he left to go home before it was given. Patient resting in bed in no apparent distress but is still restless shaking herself back and forth. SitWillams in room with patient at this time for safety.
--- NOTE | 2017-07-07 00:10 | NURSING ---
patient sleeping comfortabley. Patient has been sleeping since left before 2200. Did not awaken patient to take PM meds d/t per patient's has not slept in 2 days. Sitter in room for paitient safety at this time.
[2017-07-07 02:20] VITALS: BP 118/94; PULSE 86; RESP 16; TEMP 36.4; O2SAT 93
[2017-07-07] MEDS: oxyCODONE 5 MG Tablet PO (02:43)
[2017-07-07] MEDS: Baclofen 10 MG Tablet 5 MG PO ×2 (06:17→14:36)
[2017-07-07 07:32] VITALS: O2SAT 96
[2017-07-07] MEDS: Iron Polysaccharide Complex 150 MG CAPSULE PO (07:46)
[2017-07-07] MEDS: Aspirin 81 MG TAB.CHEW PO (07:46)
[2017-07-07 08:00] VITALS: BP 119/51; PULSE 87; RESP 18; TEMP 37.1; O2SAT 97
[2017-07-07] MEDS: LORazepam 2 MG/ML Syringe 1 MG IV (10:21)
[2017-07-07] MEDS: 0.9% NaCl Peripheral Flush Adult/Peds IV (10:21)
[2017-07-07] MEDS: Ceftriaxone 1 GM/50 ML BAG IV (11:11)
[2017-07-07] MEDS: Docusate Sodium 100 MG Capsule PO (11:11)
[2017-07-07 11:12] VITALS: PULSE 80
[2017-07-07] MEDS: Metoprolol Tartrate 25 MG Tablet PO (11:12)
[2017-07-07] MEDS: Enoxaparin 40 MG/0.4 ML Syringe SC (11:12)
[2017-07-07] MEDS: Sertraline 50 MG Tablet PO (11:13)
[2017-07-07] MEDS: amLODIPine 10 MG Tablet PO (11:15)
[2017-07-07] MEDS: Famotidine 20 MG Tablet PO (11:15)
[2017-07-07] MEDS: Pantoprazole Sodium 40 MG Tablet PO (11:16)
[2017-07-07] MEDS: ALPRAZolam 0.5 MG Tablet PO (11:23)
[2017-07-07] MEDS: Tolterodine Tartrate 2 MG CAP.SA PO (11:50)
--- NOTE | 2017-07-07 12:21 | DCINST_ITS ---
- Discharge Diagnoses Current Active Problems: Current Active and Chronic Problems (Last Reviewed 07/02/17 @ 14:45 by Hal Metzger) UTI (urinary tract infection) (Acute) Metabolic encephalopathy (Acute) Sleep-disordered breathing (Chronic) Nocturnal hypoxemia (Chronic) Pulmonary hypertension (Chronic) You will use the following diet at home:: Cardiac Discharge Activity: May Not Drive, May not drive while taking narcotic pain medications. Additional Instructions: The patient is a recommended outpatient sleep study test Allergies/Adverse Reactions: Allergies ciprofloxacin [From Cipro] Allergy (Verified 07/02/17 14:39) Unknown escitalopram oxalate [From Lexapro] Allergy (Verified 07/02/17 14:39) Unknown heparin Allergy (Verified 07/02/17 14:39) Unknown mupirocin [From Bactroban] Allergy (Verified 07/02/17 14:39) Unknown trazodone Allergy (Verified 07/02/17 14:39) Unknown adhesive tape Adverse Reaction (Verified 07/02/17 14:39) Other Medications to take at Discharge Clopidogrel Bisulfate [Plavix] 75 mg PO QHS 08/25/15 Sertraline HCl [Zoloft] 50 mg PO BID 08/25/15 Atorvastatin Calcium [Lipitor] 40 mg PO QHS 01/27/16 Pantoprazole Sodium [Protonix] 40 mg PO QHS 01/27/16 amlodipine 10 mg tablet 10 mg PO QDAY #90 tab 06/25/17 Lisinopril [Zestril] 20 mg PO BID 06/29/17 Metoprolol Tartrate 25 mg PO BID 06/29/17 Pramipexole Di-HCl [Mirapex] 1 mg PO QHS 06/29/17 ALPRAZolam [Xanax] 1 mg PO QHS 07/05/17 Aspirin [Aspirin, Baby] 81 mg PO DAILY 07/05/17 Docusate Sodium [Colace] 100 mg PO QODAY 07/05/17 Duloxetine HCl 60 mg PO DAILY 07/05/17 Famotidine [Pepcid] 20 mg PO BID 07/05/17 Iron Polysaccharide Complex [Ferrex 150] 150 mg PO DAILYCM 07/05/17 Ondansetron [Zofran Odt] 4 mg PO Q8H PRN PRN 07/05/17 Oxybutynin [Ditropan] 10 mg PO DAILY 07/05/17 Baclofen [Lioresal] 10 mg PO Q8 tablet 07/07/17 Cefadroxil [Duracef] 500 mg PO BID #7 cap 07/07/17 Oxycodone HCl/Acetaminophen [Oxycodon-Acetaminophen 7.5-325] 1 tab PO Q6H PRN # 0 07/07/17 Quetiapine Fumarate [Seroquel XR] 100 mg PO QHS #0 07/07/17 The following prescriptions were given: Cefadroxil [Duracef] 500 mg PO BID #7 cap Primary Care Physician: Sudheer Lion MD [Primary Care Provider] - Please follow up with your Primary Care Physician in: in 1-2 weeks Please Follow Up With: Chris Pineda DO When: in 2 weeks for sleep study Please Follow Up With: Martir Chua DO When: call [facility] for appt for 1 weeks
[2017-07-07 14:45] VITALS: BP 148/70; PULSE 70; RESP 18; TEMP 36.8; O2SAT 98
--- NOTE | 2017-07-07 14:59 | NURSING ---
Pt is given discharge instructions and spouse is at bedside. His comments was here we go they are going to change up all her meds and I have to spend more money. Nurse reviewed medication list with spouse and indicate that none of her routine medication dosage was adjusted. But also reinforce that all meds need to be given at a set time. Also pt should take follow physician instructions. Spouse claims that doctor look me in the eye and said its the cybalta and zoloft that landed her here. Spouse fail to demonstrate comprehension that pt was also treated for a UTI. He is questions giving pt her zoloft and cymbalta at home. Dr. Ribeiro is paged and advised that the pt continue her medications as listed and to call PCP on sunday and have this be addressed and managed.
--- NOTE | 2017-07-07 15:16 | PCM.DC.SUM ---
Discharge Date and Diagnosis Date of Admission: 07/05/17 Date of Discharge: 07/07/17 - Primary Discharge Diagnosis 1. Acute encephalopathy most probably due to polypharmacy/narcotic use with metabolic and infectious encephalopathy from UTI: 2. Acute cystitis/lower UTI secondary to Klebsiella pneumoniae: - Secondary Discharge Diagnosis Chronic Problems (Last Reviewed 07/02/17 @ 14:45 by Hal Metzger) Sleep-disordered breathing (Chronic) Nocturnal hypoxemia (Chronic) Pulmonary hypertension (Chronic) Suicide attempt by drug ingestion (Chronic) Depression (Chronic) Anxiety (Chronic) Insomnia (Chronic) Coronary artery disease (Chronic) Morbid obesity (Chronic) Right sided cerebral infarction (Chronic) Hypertension (Chronic) Hyperlipidemia (Chronic) Hospital Course and Treatment Operations: None, total knee replacement Summary of Care Provided: [] This is a 61-year-old female with multiple comorbidities including hypertension, dyslipidemia old stroke in 2005 with residual right sided weakness per , RLS, CAD, morbid obesity, anxiety/depression, recent right TRK about 2 weeks ago is being admitted with AMS. Patient has restlessness, diffuse body movement but does not follow a pattern of Chorea, athetosis, tremor or myoclonic jerks. Patient denies focal symptoms of headache, dysarthria, aphasia or focal motor weakness or sensory loss. 1. Acute encephalopathy most probably due to polypharmacy/narcotic use with metabolic and infectious encephalopathy from UTI: The patient is being admitted on [facility] floor. Discussed with the neurologist. MRI brain ordered. Ammonia level is normal. CK mildly elevated. LFTs within normal limits except alkaline phosphatase 176. ABG 7.4/40 3/58 on room air. Patient had a sitter. Patient's was advised to taper baclofen dose, Zoloft meds and Xanax dose to avoid polypharmacy and confusion. The patient's argue about the tapering of the dose especially of duloxetine, Xanax and Seroquel. Dose of baclofen decreased to 10 mg 3 times daily as needed for muscle spasm. Patient was advised to follow with PCP for taper off antipsychotic pills. Follow-up neurology in 3 weeks. The nurse called Dr. Rahman and he agreed with the plan. 2. Acute cystitis/lower UTI secondary to Klebsiella pneumoniae: Preliminary urine culture shows gram-negative nuvia lactose electrical line worker, more than 100,000 colonies. On IV Rocephin. UA is positive of pyuria, proteinuria and RBC. Patient is discharged on 3 more days of cefadroxil 500 mg twice daily. Need to repeat UA after treatment of UTI probably outpatient. 3. Recent right TKR on 06/19/2017: Patient had post operative right knee x-ray on on 06/19 and 06/29/2017, postoperative and showed stable postsurgical changes from right knee arthroplasty with intact prosthesis. Mild soft tissue swelling. Repeat knee x-ray not show any change but shows prosthetic intact. No local tenderness, erythema or signs of infection/prosthesis loosening. 4. Sleep disorder possible due to obesity hypoventilation syndrome: As per the H&P patient had severe nocturnal hypoxemia, pulse ox dropped into the low 60s while sleeping during last admission. At the time of previous discharge, sleep study was ordered. Patient had failed to show up with sleep study and history of noncompliance as per PCP, Dr. Loin Multiple comorbidities including chronic pain syndrome, hypertension, history of a stroke, dyslipidemia, coronary artery disease, anxiety and depression, history of suicidal attempt in the past, restless leg syndrome and polypharmacy: DVT prophylaxis on Lovenox and bilateral FRANCI hose. Past meds reconciliation done. Follow-up instructions given. Total time spent, exact 32 minutes on discharge meds reconciliation, examination, review of imaging and blood test and discussion with the patient on follow-up instructions. Discharge Activity: May Not Drive, May not drive while taking narcotic pain medications. Home Medications: Medications to take at Discharge Clopidogrel Bisulfate [Plavix] 75 mg PO QHS 08/25/15 Sertraline HCl [Zoloft] 50 mg PO BID 08/25/15 Atorvastatin Calcium [Lipitor] 40 mg PO QHS 01/27/16 Pantoprazole Sodium [Protonix] 40 mg PO QHS 01/27/16 amlodipine 10 mg tablet 10 mg PO QDAY #90 tab 06/25/17 Lisinopril [Zestril] 20 mg PO BID 06/29/17 Metoprolol Tartrate 25 mg PO BID 06/29/17 Pramipexole Di-HCl [Mirapex] 1 mg PO QHS 06/29/17 ALPRAZolam [Xanax] 1 mg PO QHS 07/05/17 Aspirin [Aspirin, Baby] 81 mg PO DAILY 07/05/17 Docusate Sodium [Colace] 100 mg PO QODAY 07/05/17 Duloxetine HCl 60 mg PO DAILY 07/05/17 Famotidine [Pepcid] 20 mg PO BID 07/05/17 Iron Polysaccharide Complex [Ferrex 150] 150 mg PO DAILYCM 07/05/17 Ondansetron [Zofran Odt] 4 mg PO Q8H PRN PRN 07/05/17 Oxybutynin [Ditropan] 10 mg PO DAILY 07/05/17 Baclofen [Lioresal] 10 mg PO Q8 tablet 07/07/17 Cefadroxil [Duracef] 500 mg PO BID #7 cap 07/07/17 Oxycodone HCl/Acetaminophen [Oxycodon-Acetaminophen 7.5-325] 1 tab PO Q6H PRN #0 07/07/17 Quetiapine Fumarate [Seroquel XR] 100 mg PO QHS #0 07/07/17 Following Prescrptions Were Given to Patient: Cefadroxil [Duracef] 500 mg PO BID #7 cap Primary Care Physician: Sudheer Lion MD [Primary Care Provider] - Please follow up with your Primary Care Physician in: in 1-2 weeks Please Follow Up With: Chris Pineda DO When: in 2 weeks for sleep study Please Follow Up With: Martir Chua DO When: call [facility] for appt for 1 weeks Medical Necessity - Tobacco Use Smoking Status: Never smoker Tobacco Use: Non-smoker Meaningful Use Info Meaningful Use Diagnoses (Choose all that apply): None applicable Code Visit Inpatient E&M: 56541 Disch Hosp
--- NOTE | 2017-07-07 15:22 | DS.PCM_ITS ---
Discharge Date and Diagnosis Date of Admission: 07/05/17 Date of Discharge: 07/07/17 - Primary Discharge Diagnosis 1. Acute encephalopathy most probably due to polypharmacy/narcotic use with metabolic and infectious encephalopathy from UTI: 2. Acute cystitis/lower UTI secondary to Klebsiella pneumoniae: - Secondary Discharge Diagnosis Chronic Problems (Last Reviewed 07/02/17 @ 14:45 by Hal Metzger) Sleep-disordered breathing (Chronic) Nocturnal hypoxemia (Chronic) Pulmonary hypertension (Chronic) Suicide attempt by drug ingestion (Chronic) Depression (Chronic) Anxiety (Chronic) Insomnia (Chronic) Coronary artery disease (Chronic) Morbid obesity (Chronic) Right sided cerebral infarction (Chronic) Hypertension (Chronic) Hyperlipidemia (Chronic) Hospital Course and Treatment Operations: None, total knee replacement Summary of Care Provided: [] This is a 61-year-old female with multiple comorbidities including hypertension, dyslipidemia old stroke in 2005 with residual right sided weakness per , RLS, CAD, morbid obesity, anxiety/depression, recent right TRK about 2 weeks ago is being admitted with AMS. Patient has restlessness, diffuse body movement but does not follow a pattern of Chorea, athetosis, tremor or myoclonic jerks. Patient denies focal symptoms of headache , dysarthria, aphasia or focal motor weakness or sensory loss. 1. Acute encephalopathy most probably due to polypharmacy/narcotic use with metabolic and infectious encephalopathy from UTI: The patient is being admitted on [facility] floor. Discussed with the neurologist. MRI brain ordered. Ammonia level is normal. CK mildly elevated. LFTs within normal limits except alkaline phosphatase 176. ABG 7.4/40 3/58 on room air. Patient had a sitter. Patient's was advised to taper baclofen dose, Zoloft meds and Xanax dose to avoid polypharmacy and confusion. The patient's argue about the tapering of the dose especially of duloxetine, Xanax and Seroquel. Dose of baclofen decreased to 10 mg 3 times daily as needed for muscle spasm. Patient was advised to follow with PCP for taper off antipsychotic pills. Follow-up neurology in 3 weeks. The nurse called Dr. Rahman and he agreed with the plan. 2. 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 On IV Rocephin. UA is positive of pyuria, proteinuria and RBC. Patient is discharged on 3 more days of cefadroxil 500 mg twice daily. Need to repeat UA after treatment of UTI probably outpatient. 3. Recent right TKR on 06/19/2017: Patient had post operative right knee x-ray on on 06/19 and 06/29/2017, postoperative and showed stable postsurgical changes from right knee arthroplasty with intact prosthesis. Mild soft tissue swelling. Repeat knee x-ray not show any change but shows prosthetic intact. No local tenderness, erythema or signs of infection/prosthesis loosening. 4. Sleep disorder possible due to obesity hypoventilation syndrome: As per the H&P patient had severe nocturnal hypoxemia, pulse ox dropped into the low 60s while sleeping during last admission. At the time of previous discharge, sleep study was ordered. Patient had failed to show up with sleep study and history of noncompliance as per PCP, Dr. Lino Multiple comorbidities including chronic pain syndrome, hypertension, history of a stroke, dyslipidemia, coronary artery disease, anxiety and depression, history of suicidal attempt in the past, restless leg syndrome and polypharmacy: DVT prophylaxis on Lovenox and bilateral FRANCI hose. Past meds reconciliation done. Follow-up instructions given. Total time spent, exact 32 minutes on discharge meds reconciliation, examination , review of imaging and blood test and discussion with the patient on follow-up instructions. Discharge Activity: May Not Drive, May not drive while taking narcotic pain medications. Home Medications: Medications to take at Discharge Clopidogrel Bisulfate [Plavix] 75 mg PO QHS 08/25/15 Sertraline HCl [Zoloft] 50 mg PO BID 08/25/15 Atorvastatin Calcium [Lipitor] 40 mg PO QHS 01/27/16 Pantoprazole Sodium [Protonix] 40 mg PO QHS 01/27/16 amlodipine 10 mg tablet 10 mg PO QDAY #90 tab 06/25/17 Lisinopril [Zestril] 20 mg PO BID 06/29/17 Metoprolol Tartrate 25 mg PO BID 06/29/17 Pramipexole Di-HCl [Mirapex] 1 mg PO QHS 06/29/17 ALPRAZolam [Xanax] 1 mg PO QHS 07/05/17 Aspirin [Aspirin, Baby] 81 mg PO DAILY 07/05/17 Docusate Sodium [Colace] 100 mg PO QODAY 07/05/17 Duloxetine HCl 60 mg PO DAILY 07/05/17 Famotidine [Pepcid] 20 mg PO BID 07/05/17 Iron Polysaccharide Complex [Ferrex 150] 150 mg PO DAILYCM 07/05/17 Ondansetron [Zofran Odt] 4 mg PO Q8H PRN PRN 07/05/17 Oxybutynin [Ditropan] 10 mg PO DAILY 07/05/17 Baclofen [Lioresal] 10 mg PO Q8 tablet 07/07/17 Cefadroxil [Duracef] 500 mg PO BID #7 cap 07/07/17 Oxycodone HCl/Acetaminophen [Oxycodon-Acetaminophen 7.5-325] 1 tab PO Q6H PRN # 0 07/07/17 Quetiapine Fumarate [Seroquel XR] 100 mg PO QHS #0 07/07/17 Following Prescrptions Were Given to Patient: Cefadroxil [Duracef] 500 mg PO BID #7 cap Primary Care Physician: Sudheer Lion MD [Primary Care Provider] - Please follow up with your Primary Care Physician in: in 1-2 weeks Please Follow Up With: Chris Pineda DO When: in 2 weeks for sleep study Please Follow Up With: Martir Chua DO When: call [facility] for appt for 1 weeks Medical Necessity - Tobacco Use Smoking Status: Never smoker Tobacco Use: Non-smoker Meaningful Use Info Meaningful Use Diagnoses (Choose all that apply): None applicable Code Visit Inpatient E&M: 49931 Disch Hosp
== END 2017-07-07 14:59 | disposition home or self-care (01) | DRG 689 ==
LOC: ED 18:42 → MS3 20:10
PROVIDERS: Psychiatry & Neurology Neurology; Admitting Provider Internal Medicine; Emergency Provider Emergency Medicine; Family Provider Family Medicine; PCP Family Medicine; Visit Provider Internal Medicine
DX: N30.00 Acute cystitis without hematuria (principal); G92 Toxic encephalopathy; F11.20 Opioid dependence, uncomplicated; I69.354 Hemiplegia and hemiparesis following cerebral infarction affecting left non-dominant side; Z68.42 Body mass index [BMI] 45.0-49.9, adult; B96.1 Klebsiella pneumoniae [K. pneumoniae] as the cause of diseases classified elsewhere; F41.9 Anxiety disorder, unspecified; F32.9 Major depressive disorder, single episode, unspecified; I25.10 Atherosclerotic heart disease of native coronary artery without angina pectoris; E78.5 Hyperlipidemia, unspecified; I10 Essential (primary) hypertension; G25.81 Restless legs syndrome; G89.4 Chronic pain syndrome; G47.00 Insomnia, unspecified; I27.20 Pulmonary hypertension, unspecified; G47.36 Sleep related hypoventilation in conditions classified elsewhere; E66.01 Morbid (severe) obesity due to excess calories; Z91.5 Personal history of self-harm; Z79.82 Long term (current) use of aspirin; Z79.899 Other long term (current) drug therapy
CPT/HCPCS: 36415; 36600; 51702; 70450; 71045; 73560; 80048; 80076; 81001; 82140; 82550; 82607; 82803; 83605; 84443; 84484; 85025; 87040; 87077; 87086; 87088; 87186; 93005; 97162; 97165; 97802; 99285; J7030; A4216

== ENCOUNTER → 2017-07-30 13:49 | Outpatient (CLI) | payer MEDICARE, SELFPAY ==
--- NOTE | 2017-07-30 13:51 | RAD_ITS ---
STUDY: X-RAY - RIGHT KNEE REASON FOR EXAM: Female, 61 years old. Postop TECHNIQUE: 4 view(s) of the knee. COMPARISON: None. FINDINGS: There is a three-part right knee arthroplasty. It appears to be in anatomic position and alignment. There is overlying soft tissue swelling. There is limited visualization of the patellofemoral space. RAD/Knee 4 or More Views IMPRESSION: Soft tissue swelling. Status post right knee arthroplasty. Limited visualization of the patellofemoral space. Electronically Signed: Antoinette Aguilera MD at 17:00 EDT Tel , Service support ,
== END ==
PROVIDERS: Family Provider Family Medicine; PCP Family Medicine; Visit Provider Orthopaedic Surgery
DX: M25.561 Pain in right knee (principal)
CPT/HCPCS: 73564

== ENCOUNTER → 2017-09-18 14:07 | Outpatient (CLI) | payer MEDICARE, SELFPAY | PROVIDERS: Family Provider Family Medicine; PCP Family Medicine; Visit Provider Family Medicine | DX: R39.9 Unspecified symptoms and signs involving the genitourinary system (principal) | CPT/HCPCS: 87077; 87086; 87088; 87186 ==

== ENCOUNTER → 2017-09-26 14:37 | Outpatient (CLI) | payer MEDICARE, SELFPAY ==
--- NOTE | 2017-09-26 14:38 | RAD_ITS ---
STUDY: X-RAY - RIGHT KNEE REASON FOR EXAM: Female, 61 years old. 6 week follow. TECHNIQUE: 4 view(s) of the knee. COMPARISON: 07/30/2017, 07/06/2017 x-ray knee FINDINGS: Total arthroplasty. The prosthetic components appear to be normally seated and normally articulated. Surrounding osseous structures are intact. Moderately large knee joint effusion. Mild periarticular soft tissue swelling about the anterior knee. RAD/Knee 4 or More Views IMPRESSION: Appropriate subacute postsurgical features. Correlate operative report. Electronically Signed: Joel Sarmiento, at 15:38 EDT Tel , Service support ,
== END ==
PROVIDERS: Family Provider Family Medicine; PCP Family Medicine; Visit Provider Orthopaedic Surgery
DX: M25.561 Pain in right knee (principal)
CPT/HCPCS: 73564

== ENCOUNTER → 2017-10-29 11:33 | Outpatient (CLI) | payer MEDICARE, SELFPAY ==
[2017-10-29 14:20] LABS: AST(SGOT) 29 U/L (15-37); Alanine Aminotransfer ALT/SGPT 30 U/L (13-56); Albumin, Serum 3.5 g/dL (3.2-5.0); Alkaline Phosphatase 202 U/L (45-117); Bilirubin, Direct < 0.05 mg/dL (0.00-0.30); Cholesterol 174 mg/dL (200); Globulin 4.2 g/dL (2.2-4.2); High Density Lipoprotein 53 mg/dL; Protein, Total 7.7 g/dL (6.4-8.2); Triglycerides 190 mg/dL; Very Low Density Lipoprotein 38 mg/dL (5-40)
== END ==
PROVIDERS: Family Provider Family Medicine; PCP Family Medicine; Visit Provider Physician Assistant Medical
DX: E78.5 Hyperlipidemia, unspecified (principal); Z79.899 Other long term (current) drug therapy
CPT/HCPCS: 36415; 80061; 80076

== ENCOUNTER → 2017-12-20 13:03 | Outpatient (CLI) | payer MEDICARE, SELFPAY ==
--- NOTE | 2017-12-20 13:04 | RAD_ITS ---
STUDY: X-RAY - RIGHT KNEE REASON FOR EXAM: 6 months postop. TECHNIQUE: 4 view(s) of the knee. COMPARISON: Radiographs 09/26/2017. FINDINGS: There is a right total knee arthroplasty without evidence of complication. There is a joint effusion. There is soft tissue swelling. RAD/Knee 4 or More Views IMPRESSION: Uncomplicated right total knee arthroplasty. Joint effusion. Electronically Signed: Abhijit Schmidt MD at 15:51 EDT Tel , Service support ,
== END ==
PROVIDERS: Family Provider Family Medicine; PCP Family Medicine; Visit Provider Orthopaedic Surgery
DX: M25.561 Pain in right knee (principal)
CPT/HCPCS: 73564

== ENCOUNTER → 2018-01-07 16:03 | Outpatient (CLI) | payer MEDICARE, SELFPAY | PROVIDERS: Family Provider Family Medicine; PCP Family Medicine; Referring Provider Family Medicine; Visit Provider Family Medicine | DX: R35.0 Frequency of micturition (principal) | CPT/HCPCS: 87077; 87086; 87088 ==

== ENCOUNTER → 2018-02-07 14:46 | Outpatient (CLI) | payer MEDICARE, SELFPAY | PROVIDERS: Family Provider Family Medicine; PCP Family Medicine; Referring Provider Family Medicine; Visit Provider Family Medicine | DX: R30.0 Dysuria (principal) | CPT/HCPCS: 87086; 87088 ==

== ENCOUNTER → 2018-02-19 15:31 | Outpatient (CLI) | payer MEDICARE, SELFPAY ==
[2018-02-19 18:05] LABS: Absolute Lymphocyte Count 2.25 X10^3/ul (0.83-4.51); Absolute Neutrophil Count 4.5 X10^3/uL (2.0-7.7); Basophil# 0.08 X10^3/uL; Eosinophil# 0.17 X10^3/uL; Eosinophils% 2.2 % (0-5); Hematocrit 32.8 % (37-47); Hemoglobin 9.8 g/dl (12.0-15.0); Lymphocyte # 2.25 X10^3/ul (4.0); Lymphocyte % 29.3 % (19-41); Mean Corp Hgb Conc 29.9 g/gl (32-36); Mean Corpuscular Hgb 22.9 pg (27.0-32.0); Mean Corpuscular Volume 76.6 fL (81-99); Mean Platelet Vol. 9.9 fl (6.2-12.0); Monocyte# 0.68 X10^3/uL; Monocyte% 8.9 % (0-10); Neutrophil # 4.48 X10^3/uL (2.7-7.7); Neutrophil % 58.5 % (47-70); POSITIVE COUNT NO; POSITIVE DIFFERENTIAL NO; POSITIVE MORPHOLOGY NO; Platelet Count 356 K/mm3 (150-450); RBC Distribution Width SD 45.6 fl (35.1-43.9); Red Blood Count 4.28 M/mm3 (4.2-5.4); White Blood Count 7.7 K/mm3 (4.4-11.0)
[2018-02-19 18:12] LABS: CRP 5.84 mg/L (0.0-3.0)
[2018-02-19 18:17] LABS: Erythrocyte Sedimentation Rate 44 mm/hr (0-30)
== END ==
PROVIDERS: Family Provider Family Medicine; PCP Family Medicine; Referring Provider Physician Assistant; Visit Provider Physician Assistant
DX: Z96.651 Presence of right artificial knee joint (principal)
CPT/HCPCS: 36415; 85025; 85652; 86140

== ENCOUNTER → 2018-02-21 14:32 | Outpatient (CLI) | payer MEDICARE, SELFPAY ==
[2017-10-31 14:32] VITALS: BMI 49.4
[2018-02-21 16:40] LABS: RBC /Synovial Fluid 0.015 10^6/uL (0); Synovial Fld Mononuclear WBC % 84.7 %; Synovial Fld Polynuclear WBC # 0.031 10^3/ul; Synovial Fld Polynuclear WBC % 15.3 %
[2018-02-21 18:32] LABS: Lymph 10 %; Monocyte /Synovial Fluid 4 %; Neutrophil 11 % (0-25); Other Cell /Synovial Fluid 75 %
[2018-02-21 18:33] LABS: Appearance /Synovial Fluid Cloudy (CLEAR); Color / Synovial Fluid Pink (Pale Yellow); Source / Synovial Fluid SYNOVIAL
[2018-02-21 18:35] LABS: AUTO B FLUID DILUENT BKGD CT WBC <0.1 RBC <0.01 (W<.1,R<.01); Body Fluid QC Type(s) BF1Q,BF2Q; Synovial Fld Mononuclear WBC # 0.172 10^3/ul
[2018-02-25 12:50] LABS: Pathologist Comment Reviewed
== END ==
PROVIDERS: Family Provider Family Medicine; PCP Family Medicine; Referring Provider Specialist; Visit Provider Specialist
DX: M25.461 Effusion, right knee (principal); Z96.651 Presence of right artificial knee joint
CPT/HCPCS: 87015; 87070; 87075; 87101; 87116; 87205; 87206; 89050; 89051

== ENCOUNTER → 2018-04-10 14:34 | Outpatient (CLI) | payer MEDICARE, SELFPAY ==
--- NOTE | 2018-04-10 14:37 | BI_ITS ---
MAMMOGRAPHY - BILATERAL SCREENING REASON FOR EXAM: Female, 62 years old. Routine annual screening examination. PERTINENT HISTORY: Non-contributory. TECHNIQUE: Digital bilateral breast pat (3D mammographic acquisition) in the CC and MLO projections. 2-D mediolateral oblique (MLO) and craniocaudad (CC) views of both breasts were obtained. CAD: Full Field Digital Mammography with Computer Added Detection was performed. COMPARISON: Comparison is made with prior study dated January 13, 2013. FINDINGS: Breast Composition: The breasts are almost entirely fatty. There are no dominant masses or suspicious calcifications. No other significant abnormalities are identified. There has been no significant change since the prior study. BI/SCREENING MAMM (CAD), BILAT IMPRESSION: Stable bilateral screening mammogram. Yearly follow-up mammogram recommended. (A) ASSESSMENT CATEGORY: BIRADS Category 1: Negative. A letter regarding these results will be sent to the patient by the facility within 30 days. Approximately 10% of breast cancers are not detected by mammography. A normal mammogram should not delay biopsy of a clinically suspicious abnormality. [id number] Electronically Signed: Boone Castro MD at 9:25 EST Tel [phone], Service support ,
== END ==
PROVIDERS: Family Provider Family Medicine; PCP Family Medicine; Visit Provider Family Medicine
DX: Z12.31 Encounter for screening mammogram for malignant neoplasm of breast (principal)
CPT/HCPCS: 77063; 77067

== ENCOUNTER → 2018-04-30 10:45 | Outpatient (CLI) | payer MEDICARE, SELFPAY ==
[2018-04-29 10:26] VITALS: BMI 50.9
[2018-04-30 12:40] LABS: AST(SGOT) 33 U/L (15-37); Alanine Aminotransfer ALT/SGPT 29 U/L (13-56); Albumin, Serum 3.4 g/dL (3.2-5.0); Alkaline Phosphatase 197 U/L (45-117); Bilirubin, Direct < 0.05 mg/dL (0.00-0.30); Cholesterol 155 mg/dL (200); Globulin 4.1 g/dL (2.2-4.2); High Density Lipoprotein 48 mg/dL; Protein, Total 7.5 g/dL (6.4-8.2); Triglycerides 172 mg/dL; Very Low Density Lipoprotein 34 mg/dL (5-40)
--- OUTSIDE RECORDS SUMMARY | 2018-07-02 13:43 | XMS RPT_ITS ---
:1955 Author Organization OHIP Support Name Relationship Address Phone D Unavailable Unavailable Unavailable GIOVANA DEYVI Unavailable [address] + [place] [address] D Unavailable Unavailable Unavailable MARGARETSER DEYVI Unavailable [address] + [place] [address] D Unavailable Unavailable Unavailable MARGARETSER DEYVI Unavailable [address] + [place] [address] D Unavailable Unavailable Unavailable MARGARETSER DEYVI Unavailable [address] + [facility] [address] D Unavailable Unavailable Unavailable MARGARETSER DYEVI Unavailable [address] + [place] [address] D Unavailable Unavailable Unavailable MARGARETSER DEYVI Unavailable [address] + [place] [address] D Unavailable Unavailable Unavailable MARGARETSER DEYVI Unavailable [address] + [place] [address] D Unavailable Unavailable Unavailable MARGARETSER DEYVI Unavailable [address] + [facility] [address] D Unavailable Unavailable Unavailable MARGARETSER DEYVI Unavailable [address] + [place] [address] D Unavailable Unavailable Unavailable MARGARETSER DEYVI Unavailable [address] + [place] [address] D Unavailable Unavailable Unavailable MARGARETSER DEYVI Unavailable [address] + [place] [address] D Unavailable Unavailable Unavailable MARGARETSER DEYVI Unavailable [address] + [place] [address] D Unavailable Unavailable Unavailable MARGARETSER DEYVI Unavailable [address] + [place] [address] D Unavailable Unavailable Unavailable GONSER, DEYVI Unavailable [address] + [place] [address] D Unavailable Unavailable Unavailable GONSER, DEYVI Unavailable [address] + [place] [address] D Unavailable Unavailable Unavailable GONSER, DEYVI Unavailable [address] + [place] [address] D Unavailable Unavailable Unavailable GONSER, DEYVI Unavailable [address] + [place] [address] D Unavailable Unavailable Unavailable GONSER, DEYVI Unavailable [address] + [place] [address] D Unavailable Unavailable Unavailable GONSER, DEYVI Unavailable [address] + [place] [address] D Unavailable Unavailable Unavailable GONSER, DEYVI Unavailable [address] + [place] [address] D Unavailable Unavailable Unavailable GONSER, DEYVI Unavailable [address] + [place] [address] D Unavailable Unavailable Unavailable GONSER, DEYVI Unavailable [address] + [place] [address] D Unavailable Unavailable Unavailable GONSER, DEYVI Unavailable [address] + [place] [address] D Unavailable Unavailable Unavailable GONSER, DEYVI Unavailable [address] + [place] [address] D Unavailable Unavailable Unavailable GONSER, DEYVI Unavailable [address] + [place] [address] D Unavailable Unavailable Unavailable GONSER, DEYVI Unavailable [address] + [place] [address] D Unavailable Unavailable Unavailable GONSER, DEYVI Unavailable [address] + [place] [address] D Unavailable Unavailable Unavailable GONSER, DEYVI Unavailable [address] + [place] [address] D Unavailable Unavailable Unavailable GONSER, DEYVI Unavailable [address] + [facility] [address] D Unavailable Unavailable Unavailable GONSER, DEYVI Unavailable [address] + [facility] [address] D Unavailable Unavailable Unavailable GONSER, DEYVI Unavailable [address] + [facility] [address] D Unavailable Unavailable Unavailable GONSER, DEYVI Unavailable [address] + [place] [address] D Unavailable Unavailable Unavailable GONSER, DEYVI Unavailable [address] + [facility] [address] D Unavailable Unavailable Unavailable GONSER, DEYVI Unavailable [address] + [place] [address] D Unavailable Unavailable Unavailable GONSER, DEYVI Unavailable [address] + [facility] [address] D Unavailable Unavailable Unavailable GONSER, DEYVI Unavailable [address] + [place] [address] D Unavailable Unavailable Unavailable GONSER, DEYVI Unavailable [address] + [facility] [address] D Unavailable Unavailable Unavailable GONSER, DEYVI Unavailable [address] + [facility] [address] D Unavailable Unavailable Unavailable GONSER, DEYVI Unavailable [address] + [facility] [address] Care Team Providers Name Role Phone Markus Bowen Attending Unavailable Wilber Osborn Referring Unavailable Martir Chua Admitting Unavailable Martir Chua Attending Unavailable Sudheer Lion Primary Care Unavailable Martir Chua Consulting Unavailable Martir Chua Admitting Unavailable Martir Chua Attending Unavailable Sudheer Lion Primary Care Unavailable Martir Chua Consulting Unavailable Sudheer Lion Attending Unavailable Sudheer Lion Primary Care Unavailable Sudheer Lion Referring Unavailable Sudheer Alegre Attending Unavailable Sudheer Lion Referring Unavailable Sudheer Lion Primary Care Unavailable Leandra Mayo Attending Unavailable Leandra Mayo Referring Unavailable Sudheer Lion Primary Care Unavailable Sudheer Lion Attending Unavailable Sudheer Lion Referring Unavailable Sudheer Lion Primary Care Unavailable Matthew Noguera Attending Unavailable Matthew Noguera Referring Unavailable Lion, Sudheer Primary Care Unavailable Wilber Osborn Attending Unavailable Wilber Osbonr Referring Unavailable Lion, Sudheer Primary Care Unavailable Martir Chua Attending Unavailable Lexus, Martir Referring Unavailable Lion, Sudheer Primary Care Unavailable Martir Chua Attending Unavailable Lion, Sudheer Referring Unavailable Lion, Sudheer Primary Care Unavailable Adebayo Perez Attending Unavailable Martir Chua Attending Unavailable Lexus, Martir Referring Unavailable Lion, Sudheer Primary Care Unavailable Martir Chua Attending Unavailable Lion, Sudheer Referring Unavailable Lion, Sudheer Primary Care Unavailable Sementi, Kaity Admitting Unavailable Brian Ribeiro Attending Unavailable Lion, Sudheer Primary Care Unavailable Meghan, Gianna S. Consulting Unavailable Quintin, Brian Consulting Unavailable Sementi, Kaity Admitting Unavailable Quintin Brian Attending Unavailable Lion, Sudheer Primary Care Unavailable Meghan, Gianna S. Consulting Unavailable Quintin, Brian Consulting Unavailable Sementi, Kaity Admitting Unavailable Sementi, Kaity Attending Unavailable Lion, Sudheer Primary Care Unavailable Sementi, Kaity Consulting Unavailable Martir Chua Attending Unavailable Lion, Sudheer Referring Unavailable Lion, Sudheer Primary Care Unavailable Lion, Sudheer Primary Care Unavailable Martir Valle Attending Unavailable Laina Campos Attending Unavailable Lion, Sudheer Primary Care Unavailable Lion, Sudheer Primary Care Unavailable Laina Campos Attending Unavailable Lexus, Martir Admitting Unavailable Sementi, Kaity Attending Unavailable Lion, Sudheer Primary Care Unavailable Ashelfah, Ghasem Consulting Unavailable Sementi, Kaity Consulting Unavailable Martir Chua Admitting Unavailable Lexus, Martir Attending Unavailable Lion, Sudheer Primary Care Unavailable Ashelfah, Ghasem Consulting Unavailable Sementi, Kaity Consulting Unavailable Markus Bowen Attending Unavailable Martir Chua Referring Unavailable Lexus, Martir Admitting Unavailable Sementi, Kaity Attending Unavailable Lion, Sudheer Primary Care Unavailable Ashelfah, Ghasem Consulting Unavailable Sementi, Kaity Consulting Unavailable Martir Chua Admitting Unavailable Martir Chua Attending Unavailable Lion, Sudheer Primary Care Unavailable Ashelfah, Ghasem Consulting Unavailable Sementi, Kaity Consulting Unavailable Lexus, Martir Admitting Unavailable Ashelfah, Ghasem Attending Unavailable Lion, Sudheer Primary Care Unavailable Ashelfah, Ghasem Consulting Unavailable Martir Chua Consulting Unavailable Cristian Cheng Attending Unavailable Lion, Sudheer Primary Care Unavailable Cristian Cheng Referring Unavailable Martir Chua Attending Unavailable Lion, Sudheer Referring Unavailable Lexus, Martir Attending Unavailable Lion, Sudheer Referring Unavailable Lexus, Martir Admitting Unavailable Lion, Sudheer Primary Care Unavailable Yousif Gunter Consulting Unavailable Kaity Garrett Attending Unavailable Susie Hollins Attending Unavailable Susie Hollins Referring Unavailable Lion, Sudheer Primary Care Unavailable Roof, Cristian Maryuri Attending Unavailable Lion, Sudheer Referring Unavailable Irena, Wilber Admitting Unavailable Irena, Wilber Attending Unavailable Irena, Wilber Referring Unavailable Lion, Sudheer Primary Care Unavailable Lion, Sudheer Attending Unavailable Lion, Sudheer Primary Care Unavailable Lion, Sudheer Attending Unavailable Lion, Sudheer Referring Unavailable Lion, Sudheer Primary Care Unavailable Leandra Mayo Attending Unavailable Lion, Sudheer Referring Unavailable Lion, Sudheer Primary Care Unavailable Susie Hollins Attending Unavailable Susie Hollins Referring Unavailable Lion, Sudheer Primary Care Unavailable Lion, Sudheer Primary Care Unavailable Kaity Garrett Admitting Unavailable Brian Ribeiro Attending Unavailable Gianna Christianson Consulting Unavailable PROBLEMS PROBLEMS DATE TYPE CONDITION / CODE ATTENDING STATUS SOURCE 04/29/2018 Unknown Z01.810 - Encounter Cristian Arriaga Active [facility] for preprocedural [facility] cardiovascular Hospital examination / Repository Z01.810(ICD-10) 04/29/2018 Unknown E78.5 - Cristian Arriaga Active [place] Hyperlipidemia, Community unspecified / Hospital E78.5(ICD-10) Repository 05/03/2018 Unknown I25.10 - Jessi, [place] Active [place] Atherosclerotic heart Community disease of [facility] coronary artery Repository without angina pectoris / I25.10(ICD-10) 05/03/2018 Unknown Z95.5 - Presence of Jessi, Markus Active [facility] coronary angioplasty Community implant and graft / Hospital Z95.5(ICD-10) Repository 05/03/2018 Unknown I10 - Essential Jessi, [place] Active [place] (primary) Community hypertension / Hospital I10(ICD-10) Repository 02/21/2018 Unknown M25.461 - Effusion, Wilber Osborn Active [facility] right knee / Community M25.461(ICD-10) Hospital Repository 02/19/2018 Unknown Z96.651 - Presence of Matthew Noguera Active [place] right artificial knee Community joint / Hospital Z96.651(ICD-10) Repository 02/07/2018 Unknown R30.0 - Dysuria / Sudheer Lion Active [place] R30.0(ICD-10) [facility] Hospital Repository 01/07/2018 Unknown R35.0 - Frequency of Sudheer Lion Active [facility] micturition / Community R35.0(ICD-10) Hospital Repository 12/20/2017 Unknown M25.561 - Pain in [place], Active [facility] right knee / [facility] Community M25.561(ICD-10) Hospital Repository 09/19/2017 Unknown R39.9 - Unspecified Sudheer Lion Active [facility] symptoms and signs Community involving the Hospital genitourinary system Repository / R39.9(ICD-10) 08/01/2017 Unknown M79.89 - Other Adebayo Perez Active [facility] specified soft tissue Community disorders / Hospital M79.89(ICD-10) Repository 06/25/2017 Unknown I51.9 - Heart Sementi, Active [place] disease, unspecified [facility] / I51.9(ICD-10) Hospital Repository 06/25/2017 Unknown M17.11 - Unilateral Sementi, Active [place] primary [facility] osteoarthritis, right Hospital knee / M17.11(ICD-10) Repository 06/07/2017 Unknown Z00.00 - Encounter Cristian Cheng Active [facility] for general adult [facility] without abnormal Repository findings / Z00.00(ICD-10) PROCEDURES PROCEDURES No Procedure Records FoundRESULTS RESULTS LIVER PROFILE Collected: 04/30/2018 Status: F Source: [facility] 10:47 AM [facility] REPOSITORY TYPE CODE TESTS RESULT OUT OF RANGE REFERENCE UNITS LAB L501.1500 6.4-8.2 g/dL Normal T PROT 7.5 LAB L501.1800 3.2-5.0 g/dL Normal ALB 3.4 LAB L501.1950 2.2-4.2 g/dL Normal GLOB 4.1 LAB L501.4100 15-37 U/L Normal AST 33 LAB L501.4305 45-117 U/L High ALK P 197 LAB L501.4405 13-56 U/L Normal ALT 29 LAB L501.4600 0.20-1.00 mg/dL Normal T BILI 0.20 LAB L501.4700 0.00-0.30 mg/dL Normal D BILI < 0.05 Performed By: #### L500.3400, L500.4100 #### [facility] [address] [place], [address] LIPID PROFILE Collected: 04/30/2018 Status: F Source: [facility] 10:47 AM [facility] REPOSITORY TYPE CODE TESTS RESULT OUT OF RANGE REFERENCE UNITS LAB L501.4900 200 mg/dL Normal CHOL 155 Result Comment: <200 mg/dL Desirable 200-240 mg/dL Borderline >240 mg/dL High Risk LAB L501.5000 mg/dL Normal TRIG 172 Result Comment: The drugs N-Acetylcysteine and Metamizole may falsely depress this assay. Serum Triglycerides Reference Interval Normal <150 mg/dL Borderline high 150 - 199 mg/dL High 200 - 499 mg/dL Very High > or = 500 mg/dL LAB L501.6400 mg/dL Normal HDL 48 Result Comment: The drugs N-Acetylcysteine and Metamizole may falsely depress this assay. Reference Range HDL <40 mg/dL Low HDL Cholesterol HDL >or= 60 mg/dL High HDL Cholesterol LAB L501.6500 0-130 mg/dL Normal LDL 73 LAB L501.6600 5-40 mg/dL Normal VLDL 34 Performed By: #### L500.3400, L500.4100 #### [facility] [address] [place], [address] CARDIOLOGY VISIT Observed: 04/29/2018 Status: F Source: [facility] REPORT 11:19 AM [facility] REPOSITORY [facility] [address] [place] [address] OFFICE VISIT Date of Service: 04/29/18 MR#: [id number] Acct: [id number] Name: MACKENZIE AKHTAR Rep #: [id number] : 1955 Provider: GRAYSON Arriaga Age/Sex: 62/F Location: [facility] [place] [place] Status: Signed HPI HPI Details: MACKENZIE AKHTAR, is a 62 F who presents to the office today for a cardiovascular outpatient follow-up. She has history of coronary artery disease status post PTCA/LADARIUS to mid LAD on 02/27/2012 and bare-metal stent to RCA at [facility] on 09/24/2009, hypertension, hyperlipidemia, and CVA and 2006. She will undergo right total knee poly-exchange on 05/07/[address] Osborn. She is hoping this improves her stability. Pt denies chest, arm, jaw, or neck discomfort. Prior to PCI in 2009 she noted chest pain and bilateral arm numbness. Her exercise tolerance is limited. Pt denies symptoms of palpitations, near syncopal or syncopal episodes. Pt denies worsening edema or claudication issues. Pt. denies orthopnea, PND, fever, chills, blood in urine, blood in stool, myalgia, or unexplainable fatigue. She states SOB few, random episodes of SOB that resolves on its own after 1-2 minutes. She states lightheadedness and dizziness with quick head movements that improve with sitting. She states her knee, hip, and back often limit her activity. Intake Vital Signs04/29/18 Height 5 ft 1.5 in 04/29/18 Weight: 274 lb 04/29/18 Body Mass Index (BMI) 50.9 04/29/18 Blood Pressure 124/66 H Intake Visit Reasons: cardiac clearance/ knee 05/07/18 Irena Radio Personality Required: No Accompanied by: Is patient in pain?: No Allergies ciprofloxacin [From Cipro] Allergy (Verified 04/29/18 10:27) Unknown escitalopram oxalate [From Lexapro] Allergy (Verified 04/29/18 10:27) Unknown heparin Allergy (Verified 04/29/18 10:27) Unknown mupirocin [From Bactroban] Allergy (Verified 04/29/18 10:27) Unknown trazodone Allergy (Verified 04/29/18 10:27) Unknown adhesive tape Adverse Reaction (Verified 04/29/18 10:27) Other Medications Clopidogrel Bisulfate [Plavix] 75 mg PO QHS 08/25/15 [History Confirmed 04/29/18] Sertraline HCl [Zoloft] 100 mg PO DAILY 08/25/15 [History Confirmed 04/29/18] Atorvastatin Calcium [Lipitor] 40 mg PO QHS 01/27/16 [History Confirmed 04/29/18] Pantoprazole Sodium [Protonix] 40 mg PO QHS 01/27/16 [History Confirmed 04/29/18] amlodipine 10 mg tablet 10 mg PO QDAY #90 tab 06/25/17 [Rx Confirmed 04/29/18] Pramipexole Di-HCl [Mirapex] 1 mg PO QHS 06/29/17 [History Confirmed 04/22/18] ALPRAZolam [Xanax] 1 mg PO BID 07/05/17 [History Confirmed 04/29/18] Aspirin [Aspirin, Baby] 81 mg PO DAILY 07/05/17 [History Confirmed 04/29/18] Duloxetine HCl 60 mg PO DAILY 07/05/17 [History Confirmed 04/29/18] ranitidine 150 mg tablet 150 mg PO QDAY 10/31/17 [History Confirmed 04/29/18] metoprolol tartrate 25 mg tablet 25 mg PO BID #180 tab 11/05/17 [Rx Confirmed 04/29/18] Lisinopril 20 mg PO BID 04/22/18 [History Confirmed 04/29/18] ferrous sulfate 325 mg (65 mg iron) tablet PO 30 Days #60 tab 04/29/18 [History Confirmed 04/29/18] folic acid 1 mg tablet PO 45 Days #45 tab 04/29/18 [History Confirmed 04/29/18] omega-3 fatty acids 500 mg capsule 500 mg PO DAILY 04/29/18 [History Confirmed 04/29/18] Ejection fraction %: 65 to 70 PFSH Medical History UTI (urinary tract infection) (Acute) Metabolic encephalopathy (Acute) Sleep-disordered breathing (Chronic) Nocturnal hypoxemia (Chronic) Pulmonary hypertension (Chronic) Suicide attempt by drug ingestion (Chronic) Depression (Chronic) Anxiety (Chronic) Insomnia (Chronic) Coronary artery disease (Chronic) Morbid obesity (Chronic) Right sided cerebral infarction (Chronic) Hypertension (Chronic) Hyperlipidemia (Chronic) CVA (cerebral vascular accident) (Chronic) Heart disease (Chronic) Surgical History History of knee replacement (Resolved) History of heart artery stent (Resolved) H/O arthroscopy of right knee (Resolved) History of cholecystectomy (Resolved) History of hysterectomy (Resolved) History of tonsillectomy (Resolved) Family History Mother CAD (coronary artery disease) Hypertension Father CAD (coronary artery disease) Brother Myocardial infarction Hypertension Social History Smoking Status: Never smoker alcohol intake: never caffeine: Yes Type: carbonated beverages, tea ROS Const Const: Positive for other (joint instability); negative for weakness, body ache, fever(s), chills or fatigue ENT ENT: Positive for dizziness Cardio Chest Pain: No Palpitations: No Edema: None Muscle aches with walking: None Resp Respiratory: Positive for SOB with activity; negative for SOB at rest, SOB orthopnea\SOB lying down or paroxysmal nocturnal dyspnea GI GI: Negative nausea, black,tarry stools, bright, red blood in stools or vomiting blood/hematemesis : Negative for hematuria or frequent nighttime urination/ nocturia Musc Musc: Negative for muscle aches/ myalgia Skin Skin: Negative non-healing lesions or rash Neuro Neuro: Positive for lightheadedness and dizziness; negative for near syncope, syncope, orthostatic symptoms or weakness Endo Endo: Negative for fatigue Allergy Allergy/Immunology: Negative for rash Cardiology Exam Const Appearance: cooperative, healthy appearing, comfortable and no acute distress Nutritional Appearance: well nourished and obese Orientation: alert, awake and oriented x3 Head Head: normal to inspection Ears: hearing grossly normal bilaterally Nose: external nose normal Face and Sinus: face symmetric Mouth: oral mucosae normal Eyes General: appearance normal, both eyes and all related structures Eyelids: eyelids normal EOM: EOM intact bilaterally Neck Neck: no JVD and normal visual inspection Carotids: normal carotid upstroke Chest Chest inspection: normal inspection of the chest, normal respiratory effort and symmetric chest movement; negative cough Auscultation: Bilateral: Clear to Auscultation Cardio Rate: regular rate Rhythm: regular rhythm Heart sounds: S1 normal and S2 normal; negative rub, gallop or murmur GI GI: normal to inspection and obese Neuro General: alert, awake, oriented x3 and CN's II-XI intact bilaterally Skin Skin: no rashes or lesions noted Extremities Pulses: Normal: Right Posterior Tibial Pulse, Left Posterior Tibial Pulse, Right Radial Pulse, Left Radial Pulse Lower Extremity Edema: None: Bilateral Psych Psychological: normal affect Assessment AND Plan 1. Pre-operative cardiovascular examination Z01.810 Plan Patient will undergo knee surgery on 05/07/[address] Osborn. Her most recent heart catheterization in 2015 showed minimal disease. Her most recent echocardiogram in January 2016 showed ejection fraction of 70% and mild mitral valve insufficiency. She denies any concerning cardiac symptoms today. She does not need further testing prior to knee surgery. She was asked to continue with amlodipine, lisinopril, and metoprolol prior and day of surgery unless other pandya directed by surgery team. She was asked to hold her Plavix and aspirin approximately 7-10 days prior to surgery. She should resume both aspirin and Plavix as soon as safely possible. Patient Instructions Please hold aspirin and Plavix 7-10 days prior to surgery. Please verify blood pressure and heart rate medications with surgery team (amlodpine/Norvac, Lisinopril and Metoprolol). 2. Atherosclerosis of [place] coronary artery of [place] heart without angina pectoris I25.10 Plan Patient denies any chest pain, arm pain, jaw pain, neck pain, shortness of breath, or fatigue suggestive of angina at this time. We will continue to monitor this. We will not make any medication regimen changes and will continue risk factor modification. 3. History of heart artery stent Z95.5 02/27/12 PTCA/LADARIUS to mid LAD; 09/24/2009 bare-metal stent to RCA at [facility]; Plan Her most recent heart catheterization in January 2016 showed ejection fraction of 70% left main is angiographically normal, LAD with proximal stented segment with minimal luminal irregularities, mid to distal LAD with minimal luminal irregularities, diagonal branch arising from stented segment with ostial 10% stenosis, proximal LCx with minimal luminal irregularities, proximal RCA stented segment patent with minimal luminal irregularities, pre-stent with 10-25% stenosis, and mid RCA with minimal luminal irregularities. She should continue the risk factor and lifestyle modifications. We will continue to monitor. 4. Essential hypertension I10 Plan Patient's blood pressure is well-controlled. We will continue to monitor this. We will not make any medication regimen changes. 5. Hyperlipidemia, unspecified hyperlipidemia type E78.5 Plan Lipid panel from October 2017 showed cholesterol: 174, HDL: 53, LDL: 83, triglycerides: 190. She will continue with current statin medication. We will continue to monitor. She is expected to repeat both liver and lipid profile in the near future. Plan Detail Additional Comments Thank you for allowing us to participate in the patient's plan of care, if you have any questions please do not hesitate to call. This note was generated using a voice recognition system and there may be incorrect words, spelling, or punctuation that were not noted upon reviewing the office note prior to saving. Coding Level of Care Code Off vis,est,level 3 Diagnoses Pre-operative cardiovascular examination Z01.810 Atherosclerosis of [place] coronary artery of [place] heart without angina pectoris I25.10 Associated angina: without angina Coronary Disease-Associated Artery/Lesion type: [place] artery [place] vs. transplanted heart: [place] heart History of heart artery stent Z95.5 Essential hypertension I10 Hypertension type: essential hypertension Hyperlipidemia, unspecified hyperlipidemia type E78.5 Hyperlipidemia type: unspecified Coding Level of Care Code Off vis,est,level 3 Diagnoses Pre-operative cardiovascular examination Z01.810 Atherosclerosis of [place] coronary artery of [place] heart without angina pectoris I25.10 Associated angina: without angina Coronary Disease-Associated Artery/Lesion type: [place] artery [place] vs. transplanted heart: [place] heart History of heart artery stent Z95.5 Essential hypertension I10 Hypertension type: essential hypertension Hyperlipidemia, unspecified hyperlipidemia type E78.5 Hyperlipidemia type: unspecified Supplemental Info Supplemental Information She had a transthoracic echocardiogram on 01/17/2016. The results are as noted below. Interpretation Summary Left ventricular systolic function is normal. The estimated ejection fraction is 70 %. Mild (1+) mitral valve insufficiency. Trivial tricuspid valve insufficiency. Mild focal aortic valve calcification. Trivial aortic valve insufficiency. Trivial pulmonic valve insufficiency. Right ventricular systolic pressure estimated to be 28 mmHg. She had a dobutamine stress echocardiogram on 09/12/2016. This was considered a emzuwxss-wuvbnrfu-ytiltdprzy stress echocardiogram. She underwent diagnostic cardiac catheterization on 01/28/2016. The results are as noted below. 1. Elevated left ventricular end-diastolic pressure compatible decreased diastolic compliance 2. Left ventricle: A. Normal left ventricular size, wall motion, and systolic function B. Estimated LVEF of 70% 3. Left main coronary artery: A. Angiographically normal 4. Left anterior descending coronary artery: A. Proximal stented segment: Patent with minimal luminal irregularities B. Mid to distal: Minimal luminal irregularities C. Diagonal branch: Arising from the stented segment: Ostial 10% concentric appearing stenosis 5. Left circumflex coronary artery: A. Proximal minimal luminal irregularities 6. Right coronary artery: A. Large dominant vessel B. Proximal stented segment: Patent: Minimal luminal irregularities C. Pre-stent: 10-25% eccentric appearing stenosis D. Mid: Minimal luminal irregularities Her most recent PCI procedure was performed at [facility] on 02/27/2012. At that time she received an LAD PCI with a 3.0 23 mm Xience LADARIUS. At the same time there was comment that her RCA had a patent stent in its proximal portion with mild in-stent restenosis Her original PCI was performed at [facility] on 09/24/2009. At that time she received a bare-metal stent to the RCA. She did have a Holter monitor performed on 09/15/2016. The results are as noted below. THIS 18A24 HOUR HOLTER SCAN. SINUS RHYTHM. MINIMUM HEART RATE 56 8PM RECORDED AT 5:43 AM. THE AVERAGE HEART RATE WAS 80 8PM. MAXIMUM HEART RATE 115 8PM RECORDED AT 6:45 PM. OCCASIONAL PREMATURE ATRIAL COMPLEXES. 7 ATRIAL COUPLETS, 15 BEATS IN ATRIAL TRIGEMINY THREE ATRIAL RUNS. THE LONGEST AND FASTEST RUN OF ECTOPIC ATRIAL TACHYCARDIA WAS 12 BEATS, 176 PM RECORDED AT 3:06PM. FREQUENT PREMATURE VENTRICULAR COMPLEXES. 4 VENTRICULAR COUPLETS, SOME MULTIFOCAL 12 BEATS VENTRICULAR BIGEMINY AND 167 BEATS IN TRIGEMINY NO RUNS. NO SYMPTOMS RECORDED IN PT, DIARY. Labs LDL Cholesterol 83 mg/dL (0-130) 10/29/17 HDL Cholesterol 53 mg/dL (40-) 10/29/17 Triglycerides 190 mg/dL (-199) 10/29/17 VLDL Cholesterol 38 mg/dL (5-40) 10/29/17 Diagnostics Electrocardiogram 07/05/17 Stress Test Nuclear Medicine 01/06/16 Cardiac Catheterization 01/28/16 Chest X-Ray 07/05/17 Venous Doppler Study 06/26/17 Pulmonary Pulmonary Function Test 02/25/16 04/29/18 1119 <Electronically signed by Cristian CARMICHAEL> Date Cristian CARMICHAEL Cosigner Signature: Date (if applicable) CC: Sudheer Lion MD; Wilber Osborn MD 12 LEAD ELECTROCARDIOGRAM Observed: 04/23/2018 Status: F Source: [place] 4:48 PM [facility] REPOSITORY [facility] Cardiovascular Services [address] [place] [address] EKG - [facility] 04/22/18 1345 MR#: [id number] Acct: [id number] Name: MACKENZIE AKHTAR Rep #: [id number] : 1955 62 From: Markus Bowen MD Attending Dr: Wilber Osborn MD Status: PRE IN Ordering Dr: Wilber Osborn MD Date: 04/22/18 Location: [facility] Sex: F C Admitted: Test Reason : Blood Pressure : / mmHG Vent. Rate : 068 BPM Atrial Rate : 068 BPM P-R Int : 136 ms QRS Dur : 084 ms QT Int : 418 ms P-R-T Axes : 044 044 049 degrees QTc Int : 444 ms Normal sinus rhythm Normal ECG Confirmed by JESSI BOB, MARKUS ([id number]), telegraph editor HUE CASANOVA ([id number]) on 04/23/2018 4:48:12 PM Referred By: Wilber Osborn Confirmed By:MARKUS BOWEN MD 04/23/18 1648 Date Markus Bowen MD CC: Sudheer Lion MD; Wilber Osborn MD Date Dictated: 04/22/181344 Date Transcribed: 04/22/181344 Manager Enrollment: Signed CBC W/DIFF, AUTOMATED Collected: 04/22/2018 Status: F Source: FRANCY 2:03 PM [facility] REPOSITORY TYPE CODE TESTS RESULT OUT OF RANGE REFERENCE UNITS LAB L100.1000 4.4-11.0 K/mm3 Normal WBC 8.3 LAB L100.1200 4.2-5.4 M/mm3 Normal RBC 4.30 LAB L100.1300 12.0-15.0 g/dl Low HGB 9.1 LAB L100.1400 37-47 % Low HCT 32.5 LAB L100.1500 81-99 fL Low MCV 75.6 LAB L100.1600 27.0-32.0 pg Low MCH 21.2 LAB L100.1700 32-36 g/gl Low MCHC 28.0 LAB L100.1810 11.6-14.6 % High RDW CV 17.9 LAB L100.1820 35.1-43.9 fl High RDW SD 49.2 LAB L100.1900 150-450 K/mm3 Normal PLT 363 LAB L100.2000 6.2-12.0 fl Normal MPV 9.8 LAB L100.2100 47-70 % Normal NEUT% 69.4 LAB L100.2200 19-41 % Normal LY% 22.1 LAB L100.2300 0-10 % Normal MONO% 5.3 LAB L100.2400 0-5 % Normal EO% 2.4 LAB L100.2500 0-1 % Normal BASO% 0.7 LAB L100.2550 0.0-0.9 % Normal IM GRAN % 0.100 Result Comment: IG% - Immature Granulocytes (promyelocytes, myelocytes and metamyelocytes) > 1% indicates that a LEFT SHIFT is Present. LAB L100.2620 2.0-7.7 X10 3/uL Normal Absolute Neut 5.8 LAB L100.2720 0.83-4.51 X10 3/ul Normal Absolute Lymph 1.84 Performed By: #### L100.0100 #### [facility] [address] [place], [address] BASIC METABOLIC Collected: 04/22/2018 Status: F Source: [place] PROFILE (BMP) 2:03 PM [facility] REPOSITORY TYPE CODE TESTS RESULT OUT OF RANGE REFERENCE UNITS LAB L501.0100 74-106 mg/dL High GLU 139 Result Comment: Fasting Glucose result greater than or equal to 126 mg/dL suggests DIABETES MELLITUS per A.D.A. criteria. Please note revised GLUCOSE reference range effective 2017. LAB L501.1000 7-18 mg/dL Normal BUN 15 LAB L501.1100 0.55-1.02 mg/dL Normal CREAT,SERUM 0.98 Result Comment: The validity of the calculated GFR AND GFRAA in patients over 70 years has not been determined. Clinical correlation is essential. LAB L501.1110 >60 mL/min Normal EST GFR 60 Result Comment: Non- GFR Calc LAB L501.1115 >60 mL/min Normal EST GFR - AA 73 Result Comment: GFR Calc LAB L501.1255 ml/min Normal Estimated CRCL 43.76 LAB L501.1300 10-20 RATIO Normal BUN/CRE 15.3 LAB L501.2200 8.5-10 mg/dL Normal .1 CA 9.3 LAB L501.5300 136-14 mmol/L Normal 5 NA 142 LAB L501.5600 3.5-5. mmol/L Normal 1 K 4.1 LAB L501.5900 98-107 mmol/L Normal CL 105 LAB L501.6100 21.0-3 mmol/L Normal 2.0 CO2 27.0 LAB L501.6200 5-15 Normal GAP 10 Performed By: #### L500.2500 #### [facility] [address] [place], [address] Observed: 04/22/2018 Status: F Source: [place] MRSA/SAID SCREEN 2:03 PM [facility] REPOSITORY MRSA/SAID SCRN S. AUREUS S. aureus Positive MRSA MRSA Negative Performed By: #### M100.651 #### [facility] [address] [place], [address] SCREENING MAMM (CAD), Observed: 04/10/2018 Status: F Source: [place] BILAT 2:37 PM [facility] REPOSITORY [facility] Imaging Services [address] [place] [address] SCREENING MAMM (CAD), BIL MR#: [id number] Acct: [id number] Name: MACKENZIE AKHTAR Rep #: [id number] : 1955 F 62 From: Boone Castro MD PCP: Sudheer Lion MD Status: [facility] Study: SCREENING MAMM (CAD), BILAT Date of Exam: 04/10/18 Exam# [id number] Ordering Dr: Sudheer Lion MD MAMMOGRAPHY - BILATERAL SCREENING REASON FOR EXAM: Female, 62 years old. Routine annual screening examination. PERTINENT HISTORY: Non-contributory. TECHNIQUE: Digital bilateral breast pat (3D mammographic acquisition) in the CC and MLO projections. 2-D mediolateral oblique (MLO) and craniocaudad (CC) views of both breasts were obtained. CAD: Full Field Digital Mammography with Computer Added Detection was performed. COMPARISON: Comparison is made with prior study dated January 13, 2013. FINDINGS: Breast Composition: The breasts are almost entirely fatty. There are no dominant masses or suspicious calcifications. No other significant abnormalities are identified. There has been no significant change since the prior study. BI/SCREENING MAMM (CAD), BILAT IMPRESSION: Stable bilateral screening mammogram. Yearly follow-up mammogram recommended. (A) ASSESSMENT CATEGORY: BIRADS Category 1: Negative. A letter regarding these results will be sent to the patient by the facility within 30 days. Approximately 10% of breast cancers are not detected by mammography. A normal mammogram should not delay biopsy of a clinically suspicious abnormality. [id number] Electronically Signed: Boone Castro MD at 9:25 EST Tel [phone], Service support , CC: Sudheer Lion MD Manager Enrollment: Signed SYNOVIAL FLUID RBC, Collected: 02/21/2018 Status: C Source: [place] WBC AND DIFF 3:00 PM [facility] REPOSITORY TYPE CODE TESTS RESULT OUT OF RANGE REFERENCE UNITS LAB L200.5050 0.000-0.000 10 3 uL High SYN Tot 0.[address] Result Comment: This is the Total Number of Nucleated Cell Types in the Body Fluid. LAB L200.5100 0 10 6/uL High 0.015 SYNOVIAL RBC LAB L200.5200 0.000-0 10 3uL High .002 SYNOVIAL WBC 0.2030 LAB L200.5260 % SYBF 15.3 Normal PMN WBC% LAB L200.5270 10 3/ul SYBF 0.031 Normal PMN WBC# LAB L200.5280 % SYBF 84.7 Normal MN WBC% LAB L200.5800 PATH Normal COM/SYFL Reviewed Result Comment: Negative for malignant cells and crystals. Munir Reese M.D. 02/25/18 AMENDED REPORT 02/25/18 1250 PATH COM/SYFL previously reported as: May follow LAB L200.4600 SYNOVIAL Normal SOURCE SYNOVIAL LAB L200.4900 Pale Yellow SYNOVIAL Normal COLOR Ullin LAB L200.5000 CLEAR SYNOVIAL Normal AMANDA. Cloudy LAB L200.5300 0-25 % 11 Normal NEUTROPHIL LAB L200.5400 % LYMPH 10 Normal LAB L200.5500 % MONO 4 Normal LAB L200.5700 % OTHER 75 Normal CELL /SYN LAB L200.5290 10 3/ul SYBF MN Normal WBC# 0.172 Performed By: #### L200.0400 #### [facility] [address] [facility] [place], [address] Observed: 02/21/2018 Status: F Source: [place] CULTURE, BODY FLUID 3:00 PM [facility] REPOSITORY List Antibiotics Last 48 Hours? UNK List Antibiotics to be Started? UNK Gram Stain Centrifuged Specimen? Culture performed on centrifuged specimen Gram Stain 2+ White Blood Cells No organisms seen Body Fluid Cult NO GROWTH IN 14 DAYS Cult, Anaerobic No growth in 5 days. Performed By: #### M100.1300 #### [facility] [address] [facility] [place], [address] Observed: 02/21/2018 Status: F Source: [place] ERICKSON, FUNGUS 8482 3:00 PM [facility] REPOSITORY Cu,[id number] TESTING PERFORMED AT [facility]. ORIGINAL REPORT ON FILE IN LAB CONTAINS ADDITIONAL TEST SITE INFORMATION. CUF No yeast or mold isolated after 4 weeks. Performed By: #### M600.2000 #### [facility] [address] [facility] [place], [address] Observed: 02/21/2018 Status: F Source: [place] ACID FAST BACT 3:00 PM [facility] CULT/SM REPOSITORY AFB Smear/Fluor [facility]. ORIGINAL REPORT ON FILE IN LAB CONTAINS ADDITIONAL TEST SITE INFORMATION. Smear, Acid Fast NO ACID-FAST BACILLI OBSERVED ON SMEAR. AFB Cult TESTING PERFORMED AT [facility]. ORIGINAL REPORT ON FILE IN LAB CONTAINS ADDITIONAL TEST SITE INFORMATION. Culture, Acid Fast NO ACID-FAST BACILLI ISOLATED AFTER 6 WEEKS. Performed By: #### M300.1000 #### [facility] [address] [place], [address] CBC W/DIFF, AUTOMATED Collected: 02/19/2018 Status: F Source: FRANCY 3:39 PM [facility] REPOSITORY TYPE CODE TESTS RESULT OUT OF RANGE REFERENCE UNITS LAB L100.1000 4.4-11.0 K/mm3 Normal WBC 7.7 LAB L100.1200 4.2-5.4 M/mm3 Normal RBC 4.28 LAB L100.1300 12.0-15.0 g/dl Low HGB 9.8 LAB L100.1400 37-47 % Low HCT 32.8 LAB L100.1500 81-99 fL Low MCV 76.6 LAB L100.1600 27.0-32.0 pg Low MCH 22.9 LAB L100.1700 32-36 g/gl Low MCHC 29.9 LAB L100.1810 11.6-14.6 % High RDW CV 17.0 LAB L100.1820 35.1-43.9 fl High RDW SD 45.6 LAB L100.1900 150-450 K/mm3 Normal PLT 356 LAB L100.2000 6.2-12.0 fl Normal MPV 9.9 LAB L100.2100 47-70 % Normal NEUT% 58.5 LAB L100.2200 19-41 % Normal LY% 29.3 LAB L100.2300 0-10 % Normal MONO% 8.9 LAB L100.2400 0-5 % Normal EO% 2.2 LAB L100.2500 0-1 % Normal BASO% 1.0 LAB L100.2550 0.0-0.9 % Normal IM GRAN % 0.100 Result Comment: IG% - Immature Granulocytes (promyelocytes, myelocytes and metamyelocytes) > 1% indicates that a LEFT SHIFT is Present. LAB L100.2620 2.0-7.7 X10 3/uL Normal Absolute Neut 4.5 LAB L100.2720 0.83-4.51 X10 3/ul Normal Absolute Lymph 2.25 Performed By: #### L100.0100, L101.9900 #### [facility] [address] [facility] [id number] ERYTHROCYTE SED RATE Collected: 02/19/2018 Status: F Source: [place] 3:39 PM [facility] REPOSITORY TYPE CODE TESTS RESULT OUT OF RANGE REFERENCE UNITS LAB L102.0000 0-30 mm/hr High SED RATE 44 Performed By: #### L100.0100, L101.9900 #### [facility] [address] [place], [place], [id number] CRP Collected: 02/19/2018 Status: F Source: [place] 3:39 PM [facility] REPOSITORY TYPE CODE TESTS RESULT OUT OF RANGE REFERENCE UNITS LAB L501.6710 0.0-3.0 mg/L High 5.84 C-REACTIVE PROT Result Comment: C-Reactive Protein (CRP) provides useful information for the diagnosis, therapy and monitoring of inflammatory processes and associated diseases. For the evaluation of Relative Risk for Cardiovascular Disease, a High Sensitivity CRP (HSCRP) should be ordered. Performed By: #### L501.6710 #### [facility] [address] [place], [address] Observed: 02/07/2018 Status: F Source: FRANCY CULTURE, URINE 11:51 AM [facility] REPOSITORY Urine Culture Below infection level. ORGANISM 1: Mixed Gram Positive Organisms [place] Count 1000-10,000 Performed By: #### M100.0650 #### [facility] [address] [place], [address] Observed: 01/07/2018 Status: F Source: [place] CULTURE, URINE 2:00 PM [facility] REPOSITORY Urine Culture ORGANISM 1: Granulicatella adiacens [place] Count >100,000 Performed By: #### M100.0650 #### [facility] [address] [place], [address] ORTHOPEDIC VISIT Observed: 12/25/2017 Status: F Source: [place] REPORT 11:26 AM [facility] REPOSITORY [facility] [address] [place] [address] OFFICE VISIT Date of Service: 12/20/17 MR#: [id number] Acct: [id number] Name: MACKENZIE AKHTAR Rep #: [id number] : 1955 Provider: Leandra Mayo DO Age/Sex: 62/F [place] [facility] [place] Signed Intake Intake Visit Reasons: RIGHT KNEE Chief Complaint: Unable to manage pt @ home,Confused and non-ambulatory Is patient in pain?: Yes Allergies ciprofloxacin [From Cipro] Allergy (Verified 12/20/17 13:32) Unknown escitalopram oxalate [From Lexapro] Allergy (Verified 12/20/17 13:32) Unknown heparin Allergy (Verified 12/20/17 13:32) Unknown mupirocin [From Bactroban] Allergy (Verified 12/20/17 13:32) Unknown trazodone Allergy (Verified 12/20/17 13:32) Unknown adhesive tape Adverse Reaction (Verified 12/20/17 13:32) Other Medications Clopidogrel Bisulfate [Plavix] 75 mg PO QHS 08/25/15 [History Confirmed 10/31/17] Sertraline HCl [Zoloft] 50 mg PO BID 08/25/15 [History Confirmed 10/31/17] Atorvastatin Calcium [Lipitor] 40 mg PO QHS 01/27/16 [History Confirmed 10/31/17] Pantoprazole Sodium [Protonix] 40 mg PO QHS 01/27/16 [History Confirmed 10/31/17] amlodipine 10 mg tablet 10 mg PO QDAY #90 tab 06/25/17 [Rx Confirmed 10/31/17] Pramipexole Di-HCl [Mirapex] 1 mg PO QHS 06/29/17 [History Confirmed 10/31/17] ALPRAZolam [Xanax] 1 mg PO QHS 07/05/17 [History Confirmed 10/31/17] Aspirin [Aspirin, Baby] 81 mg PO DAILY 07/05/17 [History Confirmed 10/31/17] Duloxetine HCl 60 mg PO DAILY 07/05/17 [History Confirmed 10/31/17] Oxybutynin [Ditropan] 10 mg PO DAILY 07/05/17 [History Confirmed 10/31/17] Quetiapine Fumarate [Seroquel XR] 100 mg PO QHS #0 07/07/17 [Rx Confirmed 10/31/17] lisinopril 20 mg tablet 20 mg PO BID #180 tab 10/08/17 [Rx Confirmed 10/31/17] isosorbide mononitrate ER 30 mg tablet,extended release 24 hr 30 mg PO QDAY 10/31/17 [History Confirmed 10/31/17] polysaccharide iron complex 150 mg iron capsule 150 mg PO QDAY cap 10/31/17 [History Confirmed 10/31/17] ranitidine 150 mg tablet 150 mg PO QDAY 10/31/17 [History Confirmed 10/31/17] tramadol 50 mg tablet 50 mg PO Q6H PRN 10/31/17 [History Confirmed 10/31/17] metoprolol tartrate 25 mg tablet 25 mg PO BID #180 tab 11/05/17 [Rx] PFSH Medical History Pulmonary hypertension (Chronic) Coronary artery disease (Chronic) Morbid obesity (Chronic) Hypertension (Chronic) Hyperlipidemia (Chronic) CVA (cerebral vascular accident) (Chronic) Heart disease (Chronic) Surgical History History of knee replacement (Resolved) gallbladder removal (Resolved) History of heart artery stent (Resolved) H/O arthroscopy of right knee (Resolved) Family History Mother CAD (coronary artery disease) Hypertension Father CAD (coronary artery disease) Son Hypertension Social History Smoking Status: Never smoker alcohol intake: never caffeine: Yes Type: carbonated beverages, tea HPI RIGHT KNEE: Details: MACKENZIE AKHTAR is a 62 year old F here today for s/p right TKA dos 06/19/17. Patient notes that she is doing well. She continues to ambulate slowly with a walker. She notes htat she has popping in her knee. Patient feels like her knee gives out and if she twists her knee, her knee gives out. Patient has falls frequently. Patient did not do physical therapy. Denies numbness, tingling or other associated symptoms. ROS Const Reports system reviewed and no additional complaints, except as docu Eyes Reports system reviewed and no additional complaints, except as docu ENT Reports system reviewed and no additional complaints, except as docu Card Reports system reviewed and no additional complaints, except as docu Resp Reports system reviewed and no additional complaints, except as docu GI Reports system reviewed and no additional complaints, except as docu Reports system reviewed and no additional complaints, except as docu Musc Reports joint pain, Reports muscle weakness Skin/Breast Reports system reviewed and no additional complaints, except as docu Neuro Yes system reviewed and no additional complaints, except as docu Psych Reports system reviewed and no additional complaints, except as docu Endo Reports system reviewed and no additional complaints, except as docu Ortho Exam Right Knee Date of Surgery: 06/19/17 Skin/Wound: Yes CDI Contralateral Normal: Yes Swelling: No Homans Sign: No Knee ROM: Yes ROM-Extension -20 to 0, Yes ROM-Flexion 0-140 Examination: Yes Pain with flexion Assessment AND Plan 1. History of right knee joint replacement Z96.651 Plan Instructed to work on strengthening and exercising. X-rays were reviewed. There is no obvious fracture, dislocation, or lucency noted. Follow up as needed or sooner if pain, swelling, numbness or associated symptoms, or concerns develop. All questions answered. Patient in agreement of plan. Plan Detail Other Orders Orders: Coding Level of Care Code Off vis,est,level 3 Diagnoses History of right knee joint replacement Z96.651 Laterality: right 12/25/17 1126 <Electronically signed by Leandra Mayo DO> Date Leandra Mayo DO Cosigner Signature: Date (if applicable) CC: KNEE 4 OR MORE Observed: 12/20/2017 Status: F Source: [place]ANC[place] VIEWS 1:04 PM [facility] REPOSITORY [facility] Imaging Services [address] [place] [address] Knee 4 or More Views MR#: [id number] Acct: [id number] Name: MACKENZIE AKHTAR Rep #: [id number] : 1955 F 62 From: Abhijit Schmidt MD PCP: Sudheer Lion MD Status: REG CLI Study: Knee 4 or More Views Date of Exam: 12/20/17 Exam# [id number] Ordering Dr: Leandra Mayo DO STUDY: X-RAY - RIGHT KNEE REASON FOR EXAM: 6 months postop. TECHNIQUE: 4 view(s) of the knee. COMPARISON: Radiographs 09/26/2017. FINDINGS: There is a right total knee arthroplasty without evidence of complication. There is a joint effusion. There is soft tissue swelling. RAD/Knee 4 or More Views IMPRESSION: Uncomplicated right total knee arthroplasty. Joint effusion. Electronically Signed: Abhijit Schmidt MD at 15:51 EDT Tel , Service support , CC: Leandra Mayo DO; Sudheer Lion MD Manager Enrollment: Signed CARDIOLOGY VISIT Observed: 10/31/2017 Status: F Source: FRANCY REPORT 3:31 PM [facility] REPOSITORY [facility] [address] [place] [address] OFFICE VISIT Date of Service: 10/31/17 MR#: [id number] Acct: [id number] Name: MACKENZIE AKHTAR Rep #: [id number] : 1955 Provider: Sudheer Alegre MD Age/Sex: 62/F Location: [facility] Status: Signed HPI HPI Details: MACKENZIE AKHTAR, is a 62 F who presents to the office today for who presents for outpatient cardiovascular follow-up of her history of underlying CAD and PCI. She denies any ongoing chest discomfort suspicious for angina pectoris. There has been no issues of overt CHF or pulmonary edema. There has been no near syncope or syncope. She is status post knee replacement surgery. She is still having issues with her knee, her balance, and falling episodes. She has not lost consciousness with any of her falling episodes. She recently had a lipid profile performed. Overall her lipid profile appear to be under reasonably good control. Intake Vital Signs10/31/17 Height 5 ft 2 in 10/31/17 Weight: 270 lb 10/31/17 Body Mass Index (BMI) 49.4 10/31/17 Blood Pressure 124/70 Intake Visit Reasons: 6 M FU Radio Personality Required: No Is patient in pain?: No Allergies ciprofloxacin [From Cipro] Allergy (Verified 10/31/17 14:33) Unknown escitalopram oxalate [From Lexapro] Allergy (Verified 10/31/17 14:33) Unknown heparin Allergy (Verified 10/31/17 14:33) Unknown mupirocin [From Bactroban] Allergy (Verified 10/31/17 14:33) Unknown trazodone Allergy (Verified 10/31/17 14:33) Unknown adhesive tape Adverse Reaction (Verified 10/31/17 14:33) Other Medications Clopidogrel Bisulfate [Plavix] 75 mg PO QHS 08/25/15 [History Confirmed 10/31/17] Sertraline HCl [Zoloft] 50 mg PO BID 08/25/15 [History Confirmed 10/31/17] Atorvastatin Calcium [Lipitor] 40 mg PO QHS 01/27/16 [History Confirmed 10/31/17] Pantoprazole Sodium [Protonix] 40 mg PO QHS 01/27/16 [History Confirmed 10/31/17] amlodipine 10 mg tablet 10 mg PO QDAY #90 tab 06/25/17 [Rx Confirmed 10/31/17] Metoprolol Tartrate 25 mg PO BID 06/29/17 [History Confirmed 10/31/17] Pramipexole Di-HCl [Mirapex] 1 mg PO QHS 06/29/17 [History Confirmed 10/31/17] ALPRAZolam [Xanax] 1 mg PO QHS 07/05/17 [History Confirmed 10/31/17] Aspirin [Aspirin, Baby] 81 mg PO DAILY 07/05/17 [History Confirmed 10/31/17] Duloxetine HCl 60 mg PO DAILY 07/05/17 [History Confirmed 10/31/17] Oxybutynin [Ditropan] 10 mg PO DAILY 07/05/17 [History Confirmed 10/31/17] Quetiapine Fumarate [Seroquel XR] 100 mg PO QHS #0 07/07/17 [Rx Confirmed 10/31/17] lisinopril 20 mg tablet 20 mg PO BID #180 tab 10/08/17 [Rx Confirmed 10/31/17] isosorbide mononitrate ER 30 mg tablet,extended release 24 hr 30 mg PO QDAY 10/31/17 [History Confirmed 10/31/17] polysaccharide iron complex 150 mg iron capsule 150 mg PO QDAY cap 10/31/17 [History Confirmed 10/31/17] ranitidine 150 mg tablet 150 mg PO QDAY 10/31/17 [History Confirmed 10/31/17] tramadol 50 mg tablet 50 mg PO Q6H PRN 10/31/17 [History Confirmed 10/31/17] Ejection fraction %: 65 to 70 PFSH Medical History Pulmonary hypertension (Chronic) Coronary artery disease (Chronic) Morbid obesity (Chronic) Hypertension (Chronic) Hyperlipidemia (Chronic) CVA (cerebral vascular accident) (Chronic) Heart disease (Chronic) Surgical History History of knee replacement (Resolved) gallbladder removal (Resolved) History of heart artery stent (Resolved) H/O arthroscopy of right knee (Resolved) Family History Mother CAD (coronary artery disease) Hypertension Father CAD (coronary artery disease) Son Hypertension Social History Smoking Status: Never smoker alcohol intake: never caffeine: Yes Type: carbonated beverages, tea ROS Const Const: Positive for fatigue and weakness; negative for night sweats, excessive sweating, frequent falls, headache(s) or daytime sleepiness Eyes Eyes: Negative for loss of peripheral vision, transient loss of vision, blind spots, double vision or blurry vision ENT ENT: Positive for balance problems; negative for headache(s), dizziness, Nosebleed/epistaxis, tongue swelling or lip swelling Cardio Chest Pain: No Palpitations: No Edema: None Muscle aches with walking: None Resp Respiratory: Positive for SOB with activity; negative for SOB at rest, SOB orthopnea\SOB lying down, Cough or paroxysmal nocturnal dyspnea GI GI: Negative nausea, vomiting, heartburn, black,tarry stools or bright, red blood in stools : Negative for hematuria Musc Musc: Positive for balance problems; negative for muscle aches/ myalgia, muscle weakness or joint pain Skin Skin: Negative non-healing lesions, unusual bruising or rash Neuro Neuro: Positive for weakness; negative for frequent falls, headache(s), double vision, dizziness, lightheadedness, orthostatic symptoms, blurry vision or lack of coordination [place] Hematologic/Lymphatic: Negative for easy bruising or easy bleeding Endo Endo: Positive for fatigue; negative for excessive sweating, cold intolerance, heat intolerance, increased thirst/drinking or hair loss Psych Psych: Negative for anxiety or depression Allergy Allergy/Immunology: Negative for throat swelling, Negative for tongue swelling, Negative for hives, Negative for rash, Negative for lip swelling Cardiology Exam Const Appearance: cooperative, comfortable, no acute distress, well developed, well groomed and other (Examined in a wheelchair) Nutritional Appearance: obese Orientation: alert, awake and oriented x3 Head Head: normal to inspection, normocephalic and atraumatic Ears: hearing grossly normal bilaterally Nose: external nose normal Face and Sinus: face symmetric Mouth: oral mucosae normal Teeth and gingiva: fair dentition Eyes Eyelids: eyelids normal Conjunctivae: conjunctivae normal Pupils: PERRL EOM: EOM intact bilaterally Neck Neck: normal visual inspection and full ROM Carotids: normal carotid upstroke Chest Chest inspection: normal inspection of the chest and symmetric chest movement Auscultation: Bilateral: Clear to Auscultation Cardio Palpation: normal PMI Rate: regular rate Rhythm: regular rhythm Heart sounds: S2 normal and S1 normal Murmur: Grade 2/6, soft, mid systolic, LLSB, LVOT and sternal notch GI GI: obese, normal to inspection, bowel sounds present, soft and no hepatosplenomegaly Neuro General: alert, awake, oriented x3 and moves all extremities Skin Skin: no rashes or lesions noted Extremities Pulses: Normal: Right Radial Pulse, Left Radial Pulse Lower Extremity Edema: None: Bilateral Psych Psychological: normal affect Supplemental Info She had a transthoracic echocardiogram on 01/17/2016. The results are as noted below. Interpretation Summary Left ventricular systolic function is normal. The estimated ejection fraction is 70 %. Mild (1+) mitral valve insufficiency. Trivial tricuspid valve insufficiency. Mild focal aortic valve calcification. Trivial aortic valve insufficiency. Trivial pulmonic valve insufficiency. Right ventricular systolic pressure estimated to be 28 mmHg. She had a dobutamine stress echocardiogram on 09/12/2016. This was considered a hmulktbm-dfzhfvhj-nhktbrmnez stress echocardiogram. She underwent diagnostic cardiac catheterization on 01/28/2016. The results are as noted below. 1. Elevated left ventricular end-diastolic pressure compatible decreased diastolic compliance 2. Left ventricle: A. Normal left ventricular size, wall motion, and systolic function B. Estimated LVEF of 70% 3. Left main coronary artery: A. Angiographically normal 4. Left anterior descending coronary artery: A. Proximal stented segment: Patent with minimal luminal irregularities B. Mid to distal: Minimal luminal irregularities C. Diagonal branch: Arising from the stented segment: Ostial 10% concentric appearing stenosis 5. Left circumflex coronary artery: A. Proximal minimal luminal irregularities 6. Right coronary artery: A. Large dominant vessel B. Proximal stented segment: Patent: Minimal luminal irregularities C. Pre-stent: 10-25% eccentric appearing stenosis D. Mid: Minimal luminal irregularities Her most recent PCI procedure was performed at [facility] on 02/27/2012. At that time she received an LAD PCI with a 3.0 23 mm Xience LADARIUS. At the same time there was comment that her RCA had a patent stent in its proximal portion with mild in-stent restenosis Her original PCI was performed at [facility] on 09/24/2009. At that time she received a bare-metal stent to the RCA. She did have a Holter monitor performed on 09/15/2016. The results are as noted below. THIS 18A24 HOUR HOLTER SCAN. SINUS RHYTHM. MINIMUM HEART RATE 56 8PM RECORDED AT 5:43 AM. THE AVERAGE HEART RATE WAS 80 8PM. MAXIMUM HEART RATE 115 8PM RECORDED AT 6:45 PM. OCCASIONAL PREMATURE ATRIAL COMPLEXES. 7 ATRIAL COUPLETS, 15 BEATS IN ATRIAL TRIGEMINY THREE ATRIAL RUNS. THE LONGEST AND FASTEST RUN OF ECTOPIC ATRIAL TACHYCARDIA WAS 12 BEATS, 176 PM RECORDED AT 3:06PM. FREQUENT PREMATURE VENTRICULAR COMPLEXES. 4 VENTRICULAR COUPLETS, SOME MULTIFOCAL 12 BEATS VENTRICULAR BIGEMINY AND 167 BEATS IN TRIGEMINY NO RUNS. NO SYMPTOMS RECORDED IN PT, DIARY. Assessment AND Plan 1. CAD (coronary artery disease) I25.10 Plan At the present time she appears to be doing well from a cardiovascular standpoint without any acute symptoms or adverse events. She will continue her current medical management and follow. 2. H/O heart artery stent Z95.5 02/27/12 PTCA/LADARIUS to mid LAD Plan She does have a history of PCI as noted above. She has a history of PCI to her LAD and PCI to her RCA. At the present time she appears to be doing well. She will continue risk factor modification and medical management. 3. Hyperlipidemia, unspecified hyperlipidemia type E78.5 Plan Her lipid profile was reviewed. She will continue risk factor modification and lipid-lowering therapy. 4. Essential hypertension I10 Plan Her blood pressure appears to be well controlled. She will continue medical management and follow-up. Plan Detail Other Medications Discontinued: oxycodone-acetaminophen 5-325 mg (Percocet) Discontinued1- 2 po q6h prn PO pain Z96.651 Reason: Pt no longer taking Additional Comments She will be scheduled for an outpatient visit approximately 1 year unless needed sooner. In the interim she was asked to follow with her orthopedic surgeons with respect to her knee related issues. Thank you for allowing me to participate in the care of your patient. Please don't hesitate to call if any issues arise. This note was generated using a voice recognition system and there may be incorrect words, spelling or punctuation that were not noted when reviewing the office note prior to saving. Follow Up 1 Year (PFM) Coding Level of Care Code Off vis,est,level 3 Diagnoses CAD (coronary artery disease) I25.10 Coronary Disease-Associated Artery/Lesion type: [place] artery [place] vs. transplanted heart: [place] heart H/O heart artery stent Z95.5 Hyperlipidemia, unspecified hyperlipidemia type E78.5 Hyperlipidemia type: unspecified Essential hypertension I10 Hypertension type: essential hypertension Coding Level of Care Code Off vis,est,level 3 Diagnoses CAD (coronary artery disease) I25.10 Coronary Disease-Associated Artery/Lesion type: [place] artery [place] vs. transplanted heart: [place] heart H/O heart artery stent Z95.5 Hyperlipidemia, unspecified hyperlipidemia type E78.5 Hyperlipidemia type: unspecified Essential hypertension I10 Hypertension type: essential hypertension 10/31/17 1531 <Electronically signed by Sudheer Alegre MD> Date Sudheer Alegre MD Cosigner Signature: Date (if applicable) CC: Sudheer Lion MD LIVER PROFILE Collected: 10/29/2017 Status: F Source: [place]ANC[place] 11:38 AM [facility] REPOSITORY Order Comment: Order Date: 02/12/17 Order Info: [id number] - *Hepatic Function Panel Order Info: [id number] - *Lipid Profile CC PCP Comments: 12 hours fasting, may have water. TYPE CODE TESTS RESULT OUT OF RANGE REFERENCE UNITS LAB L501.1500 6.4-8.2 g/dL Normal T PROT 7.7 LAB L501.1800 3.2-5.0 g/dL Normal ALB 3.5 LAB L501.1950 2.2-4.2 g/dL Normal GLOB 4.2 LAB L501.4100 15-37 U/L Normal AST 29 LAB L501.4305 45-117 U/L High ALK P 202 LAB L501.4405 13-56 U/L Normal ALT 30 LAB L501.4600 0.20-1.00 mg/dL Normal T BILI 0.20 LAB L501.4700 0.00-0.30 mg/dL Normal D BILI < 0.05 Performed By: #### L500.3400 #### [facility] [address] [place], [address] LIPID PROFILE Collected: 10/29/2017 Status: F Source: [place]ANCY 11:38 AM [facility] REPOSITORY Order Comment: Order Date: 02/12/17 Order Info: [id number] - *Hepatic Function Panel Order Info: [id number] - *Lipid Profile CC PCP Comments: 12 hours fasting, may have water. TYPE CODE TESTS RESULT OUT OF RANGE REFERENCE UNITS LAB L501.4900 200 mg/dL Normal CHOL 174 Result Comment: <200 mg/dL Desirable 200-240 mg/dL Borderline >240 mg/dL High Risk LAB L501.5000 mg/dL Normal TRIG 190 Result Comment: The drugs N-Acetylcysteine and Metamizole may falsely depress this assay. Serum Triglycerides Reference Interval Normal <150 mg/dL Borderline high 150 - 199 mg/dL High 200 - 499 mg/dL Very High > or = 500 mg/dL LAB L501.6400 mg/dL Normal HDL 53 Result Comment: The drugs N-Acetylcysteine and Metamizole may falsely depress this assay. Reference Range HDL <40 mg/dL Low HDL Cholesterol HDL >or= 60 mg/dL High HDL Cholesterol LAB L501.6500 0-130 mg/dL Normal LDL 83 LAB L501.6600 5-40 mg/dL Normal VLDL 38 Performed By: #### L500.4100 #### [facility] [address] [place], [address] ORTHOPEDIC VISIT Observed: 10/15/2017 Status: F Source: FRANCY REPORT 12:56 PM [facility] REPOSITORY [facility] Orthopaedics AND Sports Medicine [address] [place] [address] [address] [place] [address] OFFICE VISIT Date of Service: 09/26/17 MR#: [id number] Acct: [id number] Name: MACKENZIE AKHTAR Rep #: [id number] : 1955 Provider: Martir Chua DO Age/Sex: 61/F Location: [facility] Status: Signed Intake Intake Visit Reasons: RIGHT KNEE Is patient in pain?: Yes Pain scale (1-10): 5 Allergies ciprofloxacin [From Cipro] Allergy (Verified 07/30/17 13:52) Unknown escitalopram oxalate [From Lexapro] Allergy (Verified 07/30/17 13:52) Unknown heparin Allergy (Verified 07/30/17 13:52) Unknown mupirocin [From Bactroban] Allergy (Verified 07/30/17 13:52) Unknown trazodone Allergy (Verified 07/30/17 13:52) Unknown adhesive tape Adverse Reaction (Verified 07/30/17 13:52) Other Medications Clopidogrel Bisulfate [Plavix] 75 mg PO QHS 08/25/15 [History Confirmed 07/05/17] Sertraline HCl [Zoloft] 50 mg PO BID 08/25/15 [History Confirmed 07/05/17] Atorvastatin Calcium [Lipitor] 40 mg PO QHS 01/27/16 [History Confirmed 07/05/17] Pantoprazole Sodium [Protonix] 40 mg PO QHS 01/27/16 [History Confirmed 07/05/17] amlodipine 10 mg tablet 10 mg PO QDAY #90 tab 06/25/17 [Rx Confirmed 07/05/17] Metoprolol Tartrate 25 mg PO BID 06/29/17 [History Confirmed 07/05/17] Pramipexole Di-HCl [Mirapex] 1 mg PO QHS 06/29/17 [History Confirmed 07/05/17] ALPRAZolam [Xanax] 1 mg PO QHS 07/05/17 [History Confirmed 07/05/17] Aspirin [Aspirin, Baby] 81 mg PO DAILY 07/05/17 [History Confirmed 07/05/17] Docusate Sodium [Colace] 100 mg PO QODAY 07/05/17 [History Confirmed 07/05/17] Duloxetine HCl 60 mg PO DAILY 07/05/17 [History Confirmed 07/05/17] Famotidine [Pepcid] 20 mg PO BID 07/05/17 [History Confirmed 07/05/17] Iron Polysaccharide Complex [Ferrex 150] 150 mg PO DAILYCM 07/05/17 [History Confirmed 07/05/17] Ondansetron [Zofran Odt] 4 mg PO Q8H PRN PRN 07/05/17 [History Confirmed 07/05/17] Oxybutynin [Ditropan] 10 mg PO DAILY 07/05/17 [History Confirmed 07/05/17] Baclofen [Lioresal] 10 mg PO Q8 tab 07/07/17 [Rx] Cefadroxil [Duracef] 500 mg PO BID #7 cap 07/07/17 [Rx] Oxycodone HCl/Acetaminophen [Oxycodon-Acetaminophen 7.5-325] 1 tab PO Q6H PRN #0 07/07/17 [Rx Confirmed 07/05/17] Quetiapine Fumarate [Seroquel XR] 100 mg PO QHS #0 07/07/17 [Rx Confirmed 07/05/17] oxycodone-acetaminophen 5 mg-325 mg tablet See Label Instructions PO .COMPLEX #56 tab 07/11/17 [Rx] oxycodone-acetaminophen 5 mg-325 mg tablet 1 tab PO Q6H PRN #56 tab 07/31/17 [Rx] lisinopril 20 mg tablet 20 mg PO BID #180 tab 10/08/17 [Rx] PFSH Medical History CVA (cerebral vascular accident) (Chronic) Heart disease (Chronic) Surgical History H/O arthroscopy of right knee (Acute) History of heart artery stent (Acute) gallbladder removal (Acute) Social History Smoking Status: Never smoker HPI RIGHT KNEE: Details: MACKENZIE AKHTAR is a 61 year old F here today for f/u right knee 06/19/17. She states she has fallen many times, sometimes even backwards and is using her cane all the time. She states that the knee feels like it shifts and slides when she walks and is unable to do stairs correctly. She is unable to stand up without assistance but does have full rom, denies clicking. She is compliant with PT and an HEP but is concerned something is wrong. Her stroke was in 2005 but it has affected the right side since. ROS Musc Reports joint pain, Reports abnormal walking, Reports muscle weakness, Reports as per HPI Neuro Yes abnormal walking Ortho Exam Right Knee Skin/Wound: Yes CDI, Yes healed Contralateral Normal: Yes Swelling: No Homans Sign: No Knee ROM: Yes ROM-Flexion 0-140 (0-120.) Quad Atrophy: No Stability: NML: Valgus 0, NML: Valgus 30, NML: Varus 0, NML: Varus 30, NML: Dial 90, NML: Dial 30, 1+: Posterior Drawer Popliteal Adenopathy: No Patella Translation: 1 Apprehension with Lateral Translation: No Patellar Tilt Normal: Yes Patella Grind: No KNEE: Patient otherwise alert oriented 3 no acute distress. Appropriate eye contact and affect. Otherwise intact from L1-S1 distributions. She has +1 pulses. She has no calf pain negative Homans. Patient has full extension about 120 knee flexion. She remains ligamentously stable. She has maybe a grade 1 at best posterior drawer with a firm endpoint. Patient does have atrophy to the thigh some left related to operative intervention but also related to stroke that affected her right lower extremity. Otherwise uses assistive device currently for gait. X-rays: Evaluated by myself the patient-hardware is otherwise well-seated well-placed status post a press-fit total knee and a cemented patella. Patella is well centered. No signs of loosening. Left Knee Skin/Wound: Yes CDI Contralateral Normal: Yes Swelling: No Homans Sign: No Quad Atrophy: No Stability: NML: Anterior Drawer, NML: Coy, NML: Posterior Drawer, NML: Valgus 0, NML: Valgus 30, NML: Varus 0, NML: Varus 30, NML: Dial 90, NML: Dial 30 Patella Translation: 1 Apprehension with Lateral Translation: No Patellar Tilt Normal: Yes Patella Grind: No Assessment AND Plan Problems 1. Primary osteoarthritis of right knee M17.11 2. History of total right knee replacement (TKR) Z96.651 3. Right-sided muscle weakness M62.81 Plan Assessment: Right knee osteoarthritis status post right total knee arthroplasty, history of cerebral infarct with right-sided weakness. Plan: At this point the patient is frustrated as she feels like it is difficult for her to get moving and because she has weakness that lower extremity. I told her that once she is still recovering from a total knee. Most patients by 3 months are going well. I think in terms of range of motion the patient is doing well however she needs to continue to work on weight loss and core function and lower extremity strength. She has had a infarct that resulted in right-sided weakness and extend the leg or overall rehab plan. I think that she needs to continue to work on rehabilitation and functional strength I think the long-term she will have good functional outcome. Otherwise if she remains symptomatic I will refer her over to the [place] [facility] group for secondary evaluation of her knee and overall body function to see if there is something that I may be missing. This point time patient will follow-up in 3 months for traditional six-month follow-up but will give her time to continue to rehab which he needs to do to include doing at home and get six-month x-rays at that point time. Any major issues return. Orders Orders: Medications Discontinued: Coding Level of Care Code Off vis,est,level 4 Diagnoses Primary osteoarthritis of right knee M17.11 Osteoarthritis type: primary History of total right knee replacement (TKR) Z96.651 Right-sided muscle weakness M62.81 10/15/17 1256 <Electronically signed by Martir Chua DO> Date Martir Chua DO Cosigner Signature: Date (if applicable) CC: KNEE 4 OR MORE Observed: 09/26/2017 Status: F Source: [place] VIEWS 2:38 PM [facility] REPOSITORY [facility] Imaging Services [address] [place] [id number] Knee 4 or More Views MR#: [id number] Acct: [id number] Name: MACKENZIE AKHTAR Rep #: [id number] : 1955 F 61 From: Joel Sarmiento MD PCP: Sudheer Lion MD Status: REG CLI Study: Knee 4 or More Views Date of Exam: 09/26/17 Exam# [id number] Ordering Dr: Martir Chua DO STUDY: X-RAY - RIGHT KNEE REASON FOR EXAM: Female, 61 years old. 6 week follow. TECHNIQUE: 4 view(s) of the knee. COMPARISON: 07/30/2017, 07/06/2017 x-ray knee FINDINGS: Total arthroplasty. The prosthetic components appear to be normally seated and normally articulated. Surrounding osseous structures are intact. Moderately large knee joint effusion. Mild periarticular soft tissue swelling about the anterior knee. RAD/Knee 4 or More Views IMPRESSION: Appropriate subacute postsurgical features. Correlate operative report. Electronically Signed: Joel Sarmiento, at 15:38 EDT Tel , Service support , CC: Martir Chua DO; Sudheer Lion MD Manager Enrollment: Signed Observed: 09/17/2017 Status: F Source: FRANCY CULTURE, URINE 4:00 PM [facility] REPOSITORY Urine Culture ORGANISM 1: Enterococcus faecalis [place] Count >100,000 Enterococcus faecalis: REACTION Ampicillin $ <=2 S Benzylpenicillin NF 2 S Ciprofloxacin $ 1 S Gentamicin SYN-S S Levofloxacin $ 1 S Linezolid $$$$ 2 S Nitrofurantoin $ <=16 S Streptomycin $ SYN-S S Tetracycline NF <=1 S Vancomycin $ 1 S (NF) indicates non-formulary drug at [facility]. Approval by Infectious Disease Specialist required before non-formulary drugs may be ordered and/or dispensed. * CLSI guidelines does not recommend testing of cephalosporins. This interpretation is deduced from Beta-lactam/penicillin results. Performed By: #### M100.0650 #### [facility] [place], [address] ORTHOPEDIC VISIT Observed: 08/03/2017 Status: F Source: FRANCY REPORT 9:38 AM [facility] REPOSITORY [facility] Orthopaedics AND Sports Medicine [address] [place] [address] [id number] OFFICE VISIT Date of Service: 07/30/17 MR#: [id number] Acct: [id number] Name: MACKENZIE AKHTAR Rep #: [id number] : 1955 Provider: Martir Chua DO Age/Sex: 61/F Location: [facility] Status: Signed Intake Intake Visit Reasons: RIGHT KNEE Chief Complaint: Unable to manage pt @ home,Confused and non-ambulatory Is patient in pain?: Yes Allergies ciprofloxacin [From Cipro] Allergy (Verified 07/30/17 13:52) Unknown escitalopram oxalate [From Lexapro] Allergy (Verified 07/30/17 13:52) Unknown heparin Allergy (Verified 07/30/17 13:52) Unknown mupirocin [From Bactroban] Allergy (Verified 07/30/17 13:52) Unknown trazodone Allergy (Verified 07/30/17 13:52) Unknown adhesive tape Adverse Reaction (Verified 07/30/17 13:52) Other Medications Clopidogrel Bisulfate [Plavix] 75 mg PO QHS 08/25/15 [History Confirmed 07/05/17] Sertraline HCl [Zoloft] 50 mg PO BID 08/25/15 [History Confirmed 07/05/17] Atorvastatin Calcium [Lipitor] 40 mg PO QHS 01/27/16 [History Confirmed 07/05/17] Pantoprazole Sodium [Protonix] 40 mg PO QHS 01/27/16 [History Confirmed 07/05/17] amlodipine 10 mg tablet 10 mg PO QDAY #90 tab 06/25/17 [Rx Confirmed 07/05/17] Lisinopril [Zestril] 20 mg PO BID 06/29/17 [History Confirmed 07/05/17] Metoprolol Tartrate 25 mg PO BID 06/29/17 [History Confirmed 07/05/17] Pramipexole Di-HCl [Mirapex] 1 mg PO QHS 06/29/17 [History Confirmed 07/05/17] ALPRAZolam [Xanax] 1 mg PO QHS 07/05/17 [History Confirmed 07/05/17] Aspirin [Aspirin, Baby] 81 mg PO DAILY 07/05/17 [History Confirmed 07/05/17] Docusate Sodium [Colace] 100 mg PO QODAY 07/05/17 [History Confirmed 07/05/17] Duloxetine HCl 60 mg PO DAILY 07/05/17 [History Confirmed 07/05/17] Famotidine [Pepcid] 20 mg PO BID 07/05/17 [History Confirmed 07/05/17] Iron Polysaccharide Complex [Ferrex 150] 150 mg PO DAILYCM 07/05/17 [History Confirmed 07/05/17] Ondansetron [Zofran Odt] 4 mg PO Q8H PRN PRN 07/05/17 [History Confirmed 07/05/17] Oxybutynin [Ditropan] 10 mg PO DAILY 07/05/17 [History Confirmed 07/05/17] Baclofen [Lioresal] 10 mg PO Q8 tab 07/07/17 [Rx] Cefadroxil [Duracef] 500 mg PO BID #7 cap 07/07/17 [Rx] Oxycodone HCl/Acetaminophen [Oxycodon-Acetaminophen 7.5-325] 1 tab PO Q6H PRN #0 07/07/17 [Rx Confirmed 07/05/17] Quetiapine Fumarate [Seroquel XR] 100 mg PO QHS #0 07/07/17 [Rx Confirmed 07/05/17] oxycodone-acetaminophen 5 mg-325 mg tablet See Label Instructions PO .COMPLEX #56 tab 07/11/17 [Rx] oxycodone-acetaminophen 5 mg-325 mg tablet 1 tab PO Q6H PRN #56 tab 07/31/17 [Rx] PFSH Medical History CVA (cerebral vascular accident) (Chronic) Heart disease (Chronic) Surgical History H/O arthroscopy of right knee (Acute) History of heart artery stent (Acute) gallbladder removal (Acute) Social History Smoking Status: Never smoker HPI RIGHT KNEE: Details: MACKENZIE AKHTAR is a 61 year old F here today s/p right TKA dos 06/19/17. Patient notes that she continues to have pain and muscle spasms. She ambulates with a slow, antalgic gait with her walker. She is not fully extending her knee. Her believes it is partially because of her stroke. Patients incision is fully healed. Ortho Exam Right Knee Skin/Wound: Yes healed Contralateral Normal: Yes Swelling: No Homans Sign: No Knee ROM: Yes ROM-Flexion 0-140 (0-118) Quad Atrophy: No Popliteal Adenopathy: No Patella Translation: 1 Apprehension with Lateral Translation: No Patellar Tilt Normal: Yes Patella Grind: No KNEE: Alert oriented 3 no acute distress. Appropriate eye contact and affect. Walks a mild antalgic gait but is a history of a CVA with partial hemiparesis to the right. Patient's current passive range of motion is full extension to 118-120 of knee flexion. Actively the patient gets to about 95 however the knee can be passively taken into 118. No calf pain no popliteal masses no effusion. Radiographs were performed evaluate myself patient shows hardware otherwise well-seated well-placed status post right total knee arthroplasty with the patella well centered. Left Knee Patella Translation: 1 Assessment AND Plan Problems 1. Orthopedic aftercare Z47.89 Plan Assessment: After orthopedic status post right total knee arthroplasty history of stroke in partial hemiparesis to the right side. Plan: At this point time the patient has full range of motion in my opinion passively. The patient has spasms into the quadriceps related most likely to some postsurgical change but also from her hemiparesis. Patient feels that she is not getting full range of motion but her range of motion is there. Patient needs to discontinue work on strength and continue to proceed through the rehab protocol. To give her 1 more pain medication doses but after that if she has issues she is A follow-up pain management. See her back in 6 weeks. Any major issues return. Orders Orders: Coding Level of Care Code Global Post Op Diagnoses Orthopedic aftercare Z47.89 08/03/17 0938 <Electronically signed by Martir Chua DO> Date Martir Chua DO Cosigner Signature: Date (if applicable) CC: KNEE 4 OR MORE Observed: 07/30/2017 Status: F Source: [place]ANC[place] VIEWS 1:52 PM [facility] REPOSITORY [facility] Imaging Services [address] [place] [address] Knee 4 or More Views MR#: [id number] Acct: [id number] Name: MACKENZIE AKHTAR Rep #: [id number] : 1955 F 61 From: Antoinette Aguilera MD PCP: Sudheer Lion MD Status: REG CLI Study: Knee 4 or More Views Date of Exam: 07/30/17 Exam# [id number] Ordering Dr: Martir Chua DO STUDY: X-RAY - RIGHT KNEE REASON FOR EXAM: Female, 61 years old. Postop TECHNIQUE: 4 view(s) of the knee. COMPARISON: None. FINDINGS: There is a three-part right knee arthroplasty. It appears to be in anatomic position and alignment. There is overlying soft tissue swelling. There is limited visualization of the patellofemoral space. RAD/Knee 4 or More Views IMPRESSION: Soft tissue swelling. Status post right knee arthroplasty. Limited visualization of the patellofemoral space. Electronically Signed: Antoinette Aguilera MD at 17:00 EDT Tel , Service support , CC: Martir Chua DO; Sudheer Lion MD Manager Enrollment: Signed CONSULTATION Observed: 07/11/2017 Status: F Source: [place] 5:05 PM [facility] REPOSITORY [facility] Medical Records Department [address] [place] [id number] Consultation 07/06/17 1500 MR#: [id number] Acct: [id number] Name: MACKENZIE AKHTAR Rep #: [id number] : 1955 61 From: Gianna Christianson MD PCP: Sudheer Lion MD Status: DIS IN Y Location: WI3 [id number] Problem List (1) Metabolic encephalopathy Status: Acute Reason for Consult Date of Consultation: 07/06/17 Reason for Consultation: Encephalopathy History of Present Illness: The patient is a 61 year old CF with PMH HTN, HLD, old stroke in 2005 with residual right sided weakness per , RLS, CAD, morbid obesity, anxiety/depression, recent right TRK about 2 weeks ago admitted with AMS. Patient is currently having severe right knee pain and is rocking back and forth in the bed in severe pain, history could not be obtained from the patient, is obtained from the and medical records, per following the knee replacement about 2 weeks ago, she came to the ED after 3 days of surgery with severe knee pain, was given Dilaudid with some relief, then later met the surgeon who increased the Percocet dose which had helped per , then yesterday after taking the medications in the morning, patient was less responsive and was found on the floor per documentation, and was later brought to the ED. There was not witnessed seizures, patient is on multiple psych medications like duloxetine, Seroquel and Zoloft, also is on Xanax and baclofen as well as on narcotics. There has been no documented myoclonic jerks, rigidity or hyperthermia since admission. At present patient denies any SHORT, visual disturbances, new onset speech disturbances, focal motor weakness or sensory loss, but is very restless due to right knee pain. Past Medical History Past Medical History (Chronic Problems): Chronic Problems (Last Reviewed 07/02/17 @ 14:45 by Hal Metzger) Sleep-disordered breathing (Chronic) Nocturnal hypoxemia (Chronic) Pulmonary hypertension (Chronic) Suicide attempt by drug ingestion (Chronic) Depression (Chronic) Anxiety (Chronic) Insomnia (Chronic) Coronary artery disease (Chronic) Morbid obesity (Chronic) Right sided cerebral infarction (Chronic) Hypertension (Chronic) Hyperlipidemia (Chronic) Allergies ciprofloxacin [From Cipro] Allergy (Verified 07/02/17 14:39) Unknown escitalopram oxalate [From Lexapro] Allergy (Verified 07/02/17 14:39) Unknown heparin Allergy (Verified 07/02/17 14:39) Unknown mupirocin [From Bactroban] Allergy (Verified 07/02/17 14:39) Unknown trazodone Allergy (Verified 07/02/17 14:39) Unknown adhesive tape Adverse Reaction (Verified 07/02/17 14:39) Other Home Medications: Ambulatory Orders Medication Instructions Recorded Clopidogrel Bisulfate [Plavix] 75 mg PO QHS 08/25/15 Surgical History: cholecystectomy, hysterectomy, total knee arthroplasty - June [address] 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 [employer] History: dysfunctional uterine bld Lives: Spouse/ Significant Other Smoking Status: Never smoker Tobacco Use: Non-smoker Alcohol: Rare Drugs: - - only what is prescribed for her - *Family History Maternal History Items: No pertinent history Paternal History Items: No pertinent history Review of Systems Constitutional: Reports: - - complete ROS negative except as documented in HPI Patient Problems: Active and Suspected Problems (Last Reviewed 07/02/17 @ 14:45 by Hal Metzger) UTI (urinary tract infection) (Acute) Metabolic encephalopathy (Acute) - Physical Exam General: Alert HEENT: Normocephalic Neck: Supple Lungs: Clear to auscultation Cardiovascular: Normal S1, Normal S2 Abdomen: Bowel Sounds Present Extremities: No cyanosis Skin: No breakdown Musculoskeletal: - - is complaining of severe right knee pain and is rocking back and forth in the bed Neurological: - - consious, awake, AoAx 2, CN 2-12 grossly intact, limited neurology examiantion due to patient complaining of constant severe right knee pain and is not answering all questions at present, power 5/5 left UE and LE, right LE difficult to examine due to pain, right UE could not be assessed since patient is lying on the side almost right lateral and is just rocking back and forth in pain, denies any sensory loss, no cerebellar signs, gait deferred, reflexes could not be assessed Vital Signs Temp Pulse Resp BP Pulse Ox 98.2 F 83 18 159/74 H 95 07/06/17 08:24 07/06/17 08:28 07/06/17 08:24 07/06/17 08:24 07/06/17 08:43 Oxygen Flow Rate (L/min) 2 Oxygen Delivery Method Room Air Weight: 116.7 kg Body Mass Index (BMI) 47.0 Intake and Output for Last 24 Hours Intake Total 1711 / 1711 Output Total 1950 / 1950 Balance -239 / -239 Assessment/Plan Active and Suspected Problems (Last Reviewed 07/02/17 @ 14:45 by Hal Metzger) UTI (urinary tract infection) (Acute) Metabolic encephalopathy (Acute) The patient is a 61 year old CF with PMH HTN, HLD, old stroke in 2005 with residual right sided weakness per , RLS, CAD, morbid obesity, anxiety/depression, recent right TRK about 2 weeks ago admitted with AMS. Patient is currently having severe right knee pain and is rocking back and forth in the bed in severe pain, history could not be obtained from the patient, is obtained from the and medical records, per following the knee replacement about 2 weeks ago, she came to the ED after 3 days of surgery with severe knee pain, was given Dilaudid with some relief, then later met the surgeon who increased the Percocet dose which had helped per , then yesterday after taking the medications in the morning, patient was less responsive and was found on the floor per documentation, and was later brought to the ED. There was not witnessed seizures, patient is on multiple psych medications like duloxetine, Seroquel and Zoloft, also is on Xanax and baclofen as well as on narcotics. There has been no documented myoclonic jerks, rigidity or hyperthermia since admission. At present patient denies any SHORT, visual disturbances, new onset speech disturbances, focal motor weakness or sensory loss, but is very restless due to right knee pain. Impression Likely Metabolic encephalopathy Symptoms could be due to polypharmacy and narcotic use Plan -CT head-report reviewed- nothing acute -Recommend MRI brain -Labs reviewed -Recommend LFTs, ammonia level, Vitamin B12 level, TSH, CK -UA- WBCs+, LE+ -Further medical management per primary team -Will defer knee pain management to primary team and orthopedics -GI/DVT prophylaxis -Fall precautions -Please call with questions if any -Thank you for allowing us to participate in patient's care and management I spent 60 minutes taking history, doing physical examination, reviewing medical records, coordinating care and counseling the patient. Code Visit Inpatient E AND M: 70050 Init Hosp L3 07/11/17 1705 <Electronically signed by Gianna Christianson MD> Date Gianna Christianson MD Cosigner Signature (if applicable): Date CC: Juan Christianson MD; Sudheer iLon MD Signed 12 LEAD ELECTROCARDIOGRAM Observed: 07/09/2017 Status: F Source: [place] 1:26 PM [facility] REPOSITORY [facility] Cardiovascular Services [address] [place] [address] 12 Lead EKG 07/05/17 1736 MR#: [id number] Acct: [id number] Name: MACKENZIE AKHTAR Rep #: [id number] : 1955 61 From: Markus Bowen MD Attending Dr: Brian Ribeiro MD Status: DIS IN Ordering Dr: Nydia Reyna DO Date: 07/05/17 Location: [facility] [place] Sex: F C Admitted: 07/05/17 Test Reason : ALTERED LOC Blood Pressure : / mmHG Vent. Rate : 077 BPM Atrial Rate : 077 BPM P-R Int : 156 ms QRS Dur : 086 ms QT Int : 390 ms P-R-T Axes : 066 054 063 degrees QTc Int : 441 ms Normal sinus rhythm with sinus arrhythmia Normal ECG Confirmed by JESSI BOB, MARKUS ([id number]), telegraph editor HUE CASANOVA ([id number]) on 07/09/2017 1:25:38 PM Referred By: RITA Confirmed By:MARKUS BOWEN MD 07/09/17 1325 Date Markus Bowen MD CC: Sudheer Lion MD; Brian Ribeiro MD; Nydia Reyna DO Signed ORTHOPEDIC VISIT Observed: 07/08/2017 Status: F Source: [place] REPORT 9:59 AM [facility] REPOSITORY [facility] Orthopaedics AND Sports Medicine [address] [place] [address] OFFICE VISIT Date of Service: 07/02/17 MR#: [id number] Acct: [id number] Name: MACKENZIE AKHTAR Rep #: [id number] : 1955 Provider: Martir Chua DO Age/Sex: 61/F Location: [facility] [place] Status: Signed Intake Intake Visit Reasons: RIGHT KNEE Is patient in pain?: Yes Pain scale (1-10): 8 Allergies ciprofloxacin [From Cipro] Allergy (Verified 07/02/17 14:39) Unknown escitalopram oxalate [From Lexapro] Allergy (Verified 07/02/17 14:39) Unknown heparin Allergy (Verified 07/02/17 14:39) Unknown mupirocin [From Bactroban] Allergy (Verified 07/02/17 14:39) Unknown trazodone Allergy (Verified 07/02/17 14:39) Unknown adhesive tape Adverse Reaction (Verified 07/02/17 14:39) Other Medications Clopidogrel Bisulfate [Plavix] 75 mg PO QHS 08/25/15 [History Confirmed 07/05/17] Sertraline HCl [Zoloft] 50 mg PO BID 08/25/15 [History Confirmed 07/05/17] Atorvastatin Calcium [Lipitor] 40 mg PO QHS 01/27/16 [History Confirmed 07/05/17] Pantoprazole Sodium [Protonix] 40 mg PO QHS 01/27/16 [History Confirmed 07/05/17] amlodipine 10 mg tablet 10 mg PO QDAY #90 tab 06/25/17 [Rx Confirmed 07/05/17] Lisinopril [Zestril] 20 mg PO BID 06/29/17 [History Confirmed 07/05/17] Metoprolol Tartrate 25 mg PO BID 06/29/17 [History Confirmed 07/05/17] Pramipexole Di-HCl [Mirapex] 1 mg PO QHS 06/29/17 [History Confirmed 07/05/17] ALPRAZolam [Xanax] 1 mg PO QHS 07/05/17 [History Confirmed 07/05/17] Aspirin [Aspirin, Baby] 81 mg PO DAILY 07/05/17 [History Confirmed 07/05/17] Docusate Sodium [Colace] 100 mg PO QODAY 07/05/17 [History Confirmed 07/05/17] Duloxetine HCl 60 mg PO DAILY 07/05/17 [History Confirmed 07/05/17] Famotidine [Pepcid] 20 mg PO BID 07/05/17 [History Confirmed 07/05/17] Iron Polysaccharide Complex [Ferrex 150] 150 mg PO DAILYCM 07/05/17 [History Confirmed 07/05/17] Ondansetron [Zofran Odt] 4 mg PO Q8H PRN PRN 07/05/17 [History Confirmed 07/05/17] Oxybutynin [Ditropan] 10 mg PO DAILY 07/05/17 [History Confirmed 07/05/17] Baclofen [Lioresal] 10 mg PO Q8 tab 07/07/17 [Rx] Cefadroxil [Duracef] 500 mg PO BID #7 cap 07/07/17 [Rx] Oxycodone HCl/Acetaminophen [Oxycodon-Acetaminophen 7.5-325] 1 tab PO Q6H PRN #0 07/07/17 [Rx Confirmed 07/05/17] Quetiapine Fumarate [Seroquel XR] 100 mg PO QHS #0 07/07/17 [Rx Confirmed 07/05/17] PFSH Medical History CVA (cerebral vascular accident) (Chronic) Heart disease (Chronic) Surgical History H/O arthroscopy of right knee (Acute) History of heart artery stent (Acute) gallbladder removal (Acute) HPI RIGHT KNEE: Details: MACKENZIE AKHTAR is a 61 year old F here today for check on her 06/19/17 right TKA, she has complaints of quad spasms and urinary incontinence. She is going to see her pcp for the urinary concerns. Her knee pain is not bad, her quad pain is what is causing her to have limited weight bearing, she also had a fall and landed on her knee opening her incision, she was seen in the ED and had xrays. Her incision is healing today and she has no drainage. No calf pain or signs of infection today. ROS Const Reports system reviewed and no additional complaints, except as docu Eyes Reports system reviewed and no additional complaints, except as docu ENT Reports system reviewed and no additional complaints, except as docu Card Reports system reviewed and no additional complaints, except as docu Resp Reports system reviewed and no additional complaints, except as docu GI Reports system reviewed and no additional complaints, except as docu Musc Reports as per HPI, Reports limited joint movement, Reports stiffness, Reports muscle weakness, Reports joint swelling, Reports joint pain, Reports abnormal walking, Reports muscle cramps Skin/Breast Reports system reviewed and no additional complaints, except as docu Neuro Yes system reviewed and no additional complaints, except as docu, Yes abnormal walking Psych Reports system reviewed and no additional complaints, except as docu Endo Reports system reviewed and no additional complaints, except as docu Ortho Exam Right Knee Skin/Wound: Yes CDI Contralateral Normal: Yes Swelling: No Homans Sign: No 1+: Effusion Knee ROM: Yes ROM-Flexion 0-140 (0-98.) Quad Atrophy: No Stability: NML: Posterior Drawer, NML: Valgus 0, NML: Valgus 30, NML: Varus 0, NML: Varus 30, NML: Dial 90, NML: Dial 30 Popliteal Adenopathy: No Patella Translation: 1 Apprehension with Lateral Translation: No Patellar Tilt Normal: Yes Patella Grind: No KNEE: Distally neurovascular intact. No calf pain negative Homans. Patient able to fully extend the knee. Range of motion of the 90 . Incision otherwise clean dry intact no signs of erythema. Patient had a ultrasound performed that was negative for DVT. Left Knee Patella Translation: 1 Assessment AND Plan Problems 1. Primary osteoarthritis of right knee M17.11 2. Orthopedic aftercare Z47. Plan Assessment: After orthopedic status post right total knee arthroplasty. Patient is doing well. Her graph plan: At this point I am going to go ahead and give the patient some baclofen to aid with some of the spasms that she gets. I think the spasms are really more related to her history of having a cerebrovascular accident on that ipsilateral side. Her says she has the spasms as well and I think the result of increased pain. I am sure the turn to get an operative intervention or not helping with that. The patient back in 4 weeks and we will get x-rays of the knee to include a sunrise view at that time. Any major issues please contact me. Medications Discontinued: baclofen Discontinued Reason: Order edited - Discontinuing original orde20 mg PO Q8H r Coding Level of Care Code Global Post Op Diagnoses Primary osteoarthritis of right knee M17.11 Osteoarthritis type: primary Orthopedic aftercare Z47.89 07/08/17 0958 <Electronically signed by Martir Chua DO> Date Martir Chua DO Cosigner Signature: Date (if applicable) CC: DISCHARGE SUMMARY Observed: 07/07/2017 Status: F Source: [place] 3:22 PM [facility] REPOSITORY [facility] Medical Records Department [address] [place] [address] Discharge Summary 07/07/17 1516 MR#: [id number] Acct: [id number] Name: MACKENZIE AKHTAR Rep #: [id number] : 1955 61 From: Brian Ribeiro MD PCP: Sudheer Lion MD Status: DIS IN Y Location: MS3 [id number] Discharge Date and Diagnosis Date of Admission: 07/05/17 Date of Discharge: 07/07/17 - Primary Discharge Diagnosis 1. Acute encephalopathy most probably due to polypharmacy/narcotic use with metabolic and infectious encephalopathy from UTI: 2. Acute cystitis/lower UTI secondary to Klebsiella pneumoniae: - Secondary Discharge Diagnosis Chronic Problems (Last Reviewed 07/02/17 @ 14:45 by Hal Metzger) Sleep-disordered breathing (Chronic) Nocturnal hypoxemia (Chronic) Pulmonary hypertension (Chronic) Suicide attempt by drug ingestion (Chronic) Depression (Chronic) Anxiety (Chronic) Insomnia (Chronic) Coronary artery disease (Chronic) Morbid obesity (Chronic) Right sided cerebral infarction (Chronic) Hypertension (Chronic) Hyperlipidemia (Chronic) Hospital Course and Treatment Operations: None, total knee replacement Summary of Care Provided: [] This is a 61-year-old female with multiple comorbidities including hypertension, dyslipidemia old stroke in 2006 with residual right sided weakness per , RLS, CAD, morbid obesity, anxiety/depression, recent right TRK about 2 weeks ago is being admitted with AMS. Patient has restlessness, diffuse body movement but does not follow a pattern of Chorea, athetosis, tremor or myoclonic jerks. Patient denies focal symptoms of headache, dysarthria, aphasia or focal motor weakness or sensory loss. 1. Acute encephalopathy most probably due to polypharmacy/narcotic use with metabolic and infectious encephalopathy from UTI: The patient is being admitted on MedSurg floor. Discussed with the neurologist. MRI brain ordered. Ammonia level is normal. CK mildly elevated. LFTs within normal limits except alkaline phosphatase 176. ABG 7.4/40 3/58 on room air. Patient had a sitter. Patient's was advised to taper baclofen dose, Zoloft meds and Xanax dose to avoid polypharmacy and confusion. The patient's argue about the tapering of the dose especially of duloxetine, Xanax and Seroquel. Dose of baclofen decreased to 10 mg 3 times daily as needed for muscle spasm. Patient was advised to follow with PCP for taper off antipsychotic pills. Follow-up neurology in 3 weeks. The nurse called Dr. Rahman and he agreed with the plan. 2. Acute cystitis/lower UTI secondary to Klebsiella pneumoniae: Preliminary urine culture shows gram-negative nuvia lactose lithographic etcher, more than 100,000 colonies. On IV Rocephin. UA is positive of pyuria, proteinuria and RBC. Patient is discharged on 3 more days of cefadroxil 500 mg twice daily. Need to repeat UA after treatment of UTI probably outpatient. 3. Recent right TKR on 06/19/2017: Patient had post operative right knee x-ray on on 06/19 and 06/29/2017, postoperative and showed stable postsurgical changes from right knee arthroplasty with intact prosthesis. Mild soft tissue swelling. Repeat knee x-ray not show any change but shows prosthetic intact. No local tenderness, erythema or signs of infection/prosthesis loosening. 4. Sleep disorder possible due to obesity hypoventilation syndrome: As per the H AND P patient had severe nocturnal hypoxemia, pulse ox dropped into the low 60s while sleeping during last admission. At the time of previous discharge, sleep study was ordered. Patient had failed to show up with sleep study and history of noncompliance as per PCP, Dr. Lion Multiple comorbidities including chronic pain syndrome, hypertension, history of a stroke, dyslipidemia, coronary artery disease, anxiety and depression, history of suicidal attempt in the past, restless leg syndrome and polypharmacy: DVT prophylaxis on Lovenox and bilateral FRANCI hose. Past meds reconciliation done. Follow-up instructions given. Total time spent, exact 32 minutes on discharge meds reconciliation, examination, review of imaging and blood test and discussion with the patient on follow-up instructions. Discharge Activity: May Not Drive, May not drive while taking narcotic pain medications. Home Medications: Medications to take at Discharge Clopidogrel Bisulfate [Plavix] 75 mg PO QHS 08/25/15 Sertraline HCl [Zoloft] 50 mg PO BID 08/25/15 Atorvastatin Calcium [Lipitor] 40 mg PO QHS 01/27/16 Pantoprazole Sodium [Protonix] 40 mg PO QHS 01/27/16 amlodipine 10 mg tablet 10 mg PO QDAY #90 tab 06/25/17 Lisinopril [Zestril] 20 mg PO BID 06/29/17 Metoprolol Tartrate 25 mg PO BID 06/29/17 Pramipexole Di-HCl [Mirapex] 1 mg PO QHS 06/29/17 ALPRAZolam [Xanax] 1 mg PO QHS 07/05/17 Aspirin [Aspirin, Baby] 81 mg PO DAILY 07/05/17 Docusate Sodium [Colace] 100 mg PO QODAY 07/05/17 Duloxetine HCl 60 mg PO DAILY 07/05/17 Famotidine [Pepcid] 20 mg PO BID 07/05/17 Iron Polysaccharide Complex [Ferrex 150] 150 mg PO DAILYCM 07/05/17 Ondansetron [Zofran Odt] 4 mg PO Q8H PRN PRN 07/05/17 Oxybutynin [Ditropan] 10 mg PO DAILY 07/05/17 Baclofen [Lioresal] 10 mg PO Q8 tablet 07/07/17 Cefadroxil [Duracef] 500 mg PO BID #7 cap 07/07/17 Oxycodone HCl/Acetaminophen [Oxycodon-Acetaminophen 7.5-325] 1 tab PO Q6H PRN #0 07/07/17 Quetiapine Fumarate [Seroquel XR] 100 mg PO QHS #0 07/07/17 Following Prescrptions Were Given to Patient: Cefadroxil [Duracef] 500 mg PO BID #7 cap Primary Care Physician: Sudheer Lion MD [Primary Care Provider] - Please follow up with your Primary Care Physician in: in 1- 2 weeks Please Follow Up With: Chris Pineda DO When: in 2 weeks for sleep study Please Follow Up With: Martir Chua DO When: call osu for appt for 1 weeks Medical Necessity - Tobacco Use Smoking Status: Never smoker Tobacco Use: Non-smoker Meaningful Use Info Meaningful Use Diagnoses (Choose all that apply): None applicable Code Visit Inpatient E AND M: 38113 Disch Hosp 07/07/17 1522 <Electronically signed by Brian Ribeiro MD> Date Brian Ribeiro MD Cosigner Signature (if applicable): Date CC: Sudheer Lion MD; Brian Ribeiro MD Signed DISCHARGE INSTRUCTION Observed: 07/07/2017 Status: F Source: [place] 12:21 PM [facility] REPOSITORY [facility] Medical Records Department [address] [place] [address] Instructions for Home/Discharge Instructions 07/07/17 1150 MR#: [id number] Acct: [id number] Name: MACKENZIE AKHTAR Rep #: [id number] : 1955 61 From: Brian Ribeiro MD PCP: Sudheer Lion MD Status: ADM IN - Discharge Diagnoses Current Active Problems: Current Active and Chronic Problems (Last Reviewed 07/02/17 @ 14:45 by Hal Metzger) UTI (urinary tract infection) (Acute) Metabolic encephalopathy (Acute) Sleep-disordered breathing (Chronic) Nocturnal hypoxemia (Chronic) Pulmonary hypertension (Chronic) You will use the following diet at home:: Cardiac Discharge Activity: May Not Drive, May not drive while taking narcotic pain medications. Additional Instructions: The patient is a recommended outpatient sleep study test Allergies/Adverse Reactions: Allergies ciprofloxacin [From Cipro] Allergy (Verified 07/02/17 14:39) Unknown escitalopram oxalate [From Lexapro] Allergy (Verified 07/02/17 14:39) Unknown heparin Allergy (Verified 07/02/17 14:39) Unknown mupirocin [From Bactroban] Allergy (Verified 07/02/17 14:39) Unknown trazodone Allergy (Verified 07/02/17 14:39) Unknown adhesive tape Adverse Reaction (Verified 07/02/17 14:39) Other Medications to take at Discharge Clopidogrel Bisulfate [Plavix] 75 mg PO QHS 08/25/15 Sertraline HCl [Zoloft] 50 mg PO BID 08/25/15 Atorvastatin Calcium [Lipitor] 40 mg PO QHS 01/27/16 Pantoprazole Sodium [Protonix] 40 mg PO QHS 01/27/16 amlodipine 10 mg tablet 10 mg PO QDAY #90 tab 06/25/17 Lisinopril [Zestril] 20 mg PO BID 06/29/17 Metoprolol Tartrate 25 mg PO BID 06/29/17 Pramipexole Di-HCl [Mirapex] 1 mg PO QHS 06/29/17 ALPRAZolam [Xanax] 1 mg PO QHS 07/05/17 Aspirin [Aspirin, Baby] 81 mg PO DAILY 07/05/17 Docusate Sodium [Colace] 100 mg PO QODAY 07/05/17 Duloxetine HCl 60 mg PO DAILY 07/05/17 Famotidine [Pepcid] 20 mg PO BID 07/05/17 Iron Polysaccharide Complex [Ferrex 150] 150 mg PO DAILYCM 07/05/17 Ondansetron [Zofran Odt] 4 mg PO Q8H PRN PRN 07/05/17 Oxybutynin [Ditropan] 10 mg PO DAILY 07/05/17 Baclofen [Lioresal] 10 mg PO Q8 tablet 07/07/17 Cefadroxil [Duracef] 500 mg PO BID #7 cap 07/07/17 Oxycodone HCl/Acetaminophen [Oxycodon-Acetaminophen 7.5-325] 1 tab PO Q6H PRN #0 07/07/17 Quetiapine Fumarate [Seroquel XR] 100 mg PO QHS #0 07/07/17 The following prescriptions were given: Cefadroxil [Duracef] 500 mg PO BID #7 cap Primary Care Physician: Sudheer Lion MD [Primary Care Provider] - Please follow up with your Primary Care Physician in: in 1- 2 weeks Please Follow Up With: Chris Pineda DO When: in 2 weeks for sleep study Please Follow Up With: Martir Chua DO When: call [facility] for appt for 1 weeks 07/07/17 1221 <Electronically signed by Brian Ribeiro MD> Date Brian Ribeiro MD CC: Juan Christianson MD; Sudheer Lion MD AMMONIA Collected: 07/06/2017 Status: F Source: [place] 4:14 PM [facility] REPOSITORY TYPE CODE TESTS RESULT OUT OF RANGE REFERENCE UNITS LAB L503.5510 11-32 umol/L Normal AMMONIA 30.0 Performed By: #### L500.3400, L501.3620, L501.9520, L503.5510 #### [facility] [address] [place], [address] KNEE 1 OR 2 VIEWS Observed: 07/06/2017 Status: F Source: [place] 2:24 PM [facility] REPOSITORY [facility] Imaging Services [address] [place] [address] Knee 1 or 2 Views MR#: [id number] Acct: [id number] Name: MACKENZIE AKHTAR Rep #: [id number] : 1955 F 61 From: Hoang Hart MD PCP: Sudheer Lion MD Status: ADM IN Study: Knee 1 or 2 Views Date of Exam: 07/06/17 Exam# [id number] Ordering Dr: Brian Ribeiro MD STUDY: X-RAY - RIGHT KNEE REASON FOR EXAM: Female, 61 years old. Postop pain TECHNIQUE: 2 view(s) of the knee. COMPARISON: June 29, 2017 FINDINGS: Knee prosthesis is noted in anatomic alignment and position.. There is no evidence for acute fracture however there does appear to be mild medial subluxation of the femoral-tibial joint on the AP view although this may be positional artifact.. Would recommend clinical correlation and possibly repeat imaging in the AP projection RAD/Knee 1 or 2 Views IMPRESSION: Status post prosthesis placement without evidence for acute fracture. Cannot exclude medial subluxation versus positioning artifact. Electronically Signed: Hoang Hart MD at 19:06 EDT , Service support , CC: Sudheer Lion MD; Brian Ribeiro MD Manager Enrollment: Signed HISTORY AND PHYSICAL Observed: 07/06/2017 Status: F Source: [place] EXAM 4:11 AM [facility] REPOSITORY [facility] Medical Records Department [address] [place] [address] History and Physical 07/05/172010 MR#: [id number] Acct: [id number] Name: MACKENZIE AKHTAR Rep #: [id number] : 1955 61 From: Nelsy Garrett DO PCP: Sudheer Lion MD Status: ADM IN Y Location: [facility] [place] [id number] Problem List (1) UTI (urinary tract infection) Status: Acute Qualifiers: Urinary tract infection type: acute cystitis (2) Metabolic encephalopathy Status: Acute (3) Anxiety Status: Chronic (4) Depression Status: Chronic (5) Insomnia Status: Chronic (6) Suicide attempt by drug ingestion Status: Chronic (7) Coronary artery disease Status: Chronic (8) Hyperlipidemia Status: Chronic (9) Hypertension Status: Chronic (10) Morbid obesity Status: Chronic (11) Right sided cerebral infarction Status: Chronic (12) Sleep-disordered breathing Status: Chronic (13) Nocturnal hypoxemia Status: Chronic (14) Pulmonary hypertension Status: Chronic History of Present Illness Date of Admission: 07/05/17 Chief Complaint: found with altered level of consciousness by her The patient is a 61 year old F with a past medical history of sleep disordered breathing, hypertension, coronary artery disease, remote CVA, morbid obesity, hypertension, hyperlipidemia, restless leg syndrome, anxiety/depression and polypharmacy with multiple sedating medications in a pt who drops into the low 60's on RA at night. She has been referred for a sleep study in the past but failed to show up. Recently in the hospital for a R TKR by Dr. Chua and getting PT at home. She is on Seroquel 100 mg Q HS, Baclofen 20 TID, Alprazolam, mirapex, narcotics and is also now taking an OTC cold prep which neither he nor her know the name of. She was brought to the ED at [facility] on 07/05/17 by asha after her found her sitting on the floor that morning rocking back and forth. She was not brought to the ER until 5 PM yet he found her sitting on the floor in the AM? He stated that she has been less responsive than normal. The reportedly manages her pain medications and he himself is in pain management. She has had a suicidal attempt in the past with drug OD. When she was in the hospital for the TKR she was very obtunded due to polypharmacy and stayed in the hospital longer than what is normal because she was so obtunded she could not participate in therapy. All the sedating medications were decreased at the time of that admission and MS Contin was discontinued. Vital signs at arrival to the emergency room were temperature 98.3, pulse rate 65, blood pressure 133/69, respiratory rate 14 and she was 93% saturated on room air. Chest x-ray was reported as possible left basilar infiltrate versus atelectasis. She is not coughing and I favor atelectasis secondary to decreased level of consciousness with hypoventilation. CT brain showed atrophy and periventricular white matter ischemic changes with probable old left lacunar infarcts. There were no acute findings. White blood cell count is normal at 9.8 with 68% neutrophils. Hemoglobin is stable at 9.3 and the platelets are within normal limits. An ABG on room air showed a pH of 7.40 PCO2 of 43 and a PO2 of 58. Electrolytes were within normal limits and the BUN was 18 with a creatinine of 1.05. Troponin was less than 0.02. A UA obtained from a Vaughan catheter showed 50-100 RBCs per high- power field and greater than 100 WBCs per high-power field with rare bacteria and +1 urate crystals. It was nitrite negative. At the time I examined her she was so somnolent I had to do a sternal rub to wake her up and she fell back to sleep several times during my attempts to get hx from her. The majority of the recent hx of obtained from the . She is now on both Duloxetine and sertraline and she was not on duloxetine at discharge from the hospital recently raising the possibility of serotonin S. These drugs are not generally used together because they both block serotonin reuptake and can cause serotonin S. She has never seen a psychiatrist. When I asked why she never saw a psychiatrist her told me that they barely leave the house and it is not convenient for them to see multiple doctors. Past Medical History Past Medical History (Chronic Problems): Chronic Problems (Last Reviewed 07/02/17 @ 14:45 by Hal Metzger) Sleep-disordered breathing (Chronic) Nocturnal hypoxemia (Chronic) Pulmonary hypertension (Chronic) Suicide attempt by drug ingestion (Chronic) Depression (Chronic) Anxiety (Chronic) Insomnia (Chronic) Coronary artery disease (Chronic) Morbid obesity (Chronic) Right sided cerebral infarction (Chronic) Hypertension (Chronic) Hyperlipidemia (Chronic) Allergies ciprofloxacin [From Cipro] Allergy (Verified 07/02/17 14:39) Unknown escitalopram oxalate [From Lexapro] Allergy (Verified 07/02/17 14:39) Unknown heparin Allergy (Verified 07/02/17 14:39) Unknown mupirocin [From Bactroban] Allergy (Verified 07/02/17 14:39) Unknown trazodone Allergy (Verified 07/02/17 14:39) Unknown adhesive tape Adverse Reaction (Verified 07/02/17 14:39) Other Home Medications: Ambulatory Orders Medication Instructions Recorded Clopidogrel Bisulfate [Plavix] 75 mg PO QHS 08/25/15 Surgical History: cholecystectomy, hysterectomy, total knee arthroplasty - June [address] 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 Neurological: Reports: - - decreased level of consciousness Unable to obtain accurate/complete ROS d/t: limited ROS because the patient is obtunded and encephalopathic VTE Information - Inpt Only VTE Present on Admission: No VTE Mechan Device Prophylaxis: SCD's VTE Pharm Prophylaxis ordered?: Yes Patient Problems: Active and Suspected Problems (Last Reviewed 07/02/17 @ 14:45 by Hal Metzger) UTI (urinary tract infection) (Acute) Metabolic encephalopathy (Acute) - Physical Exam General: Well developed, Well nourished, - - She did not arouse with calling her name or shaking her shoulder but did arouse with a sternal rub but then kept falling asleep and I had to keep arousing her. she can not keep her eyes open. After she did awaken some she was rocking back and forth on her side HEENT: Atraumatic, PERRLA, EOMI, Normocephalic Oral: Dry Mucosa Lungs: Clear to auscultation, Diminished Cardiovascular: Regular rate, Regular Rhythm, Normal S1, Normal S2, Murmur - 2/6 systolic murmur at the second right intercostal space with radiation to the lower left sternal border and apex. Abdomen: Bowel Sounds Present, Soft, Non Tender, Non-Distended, Obese Extremities: No clubbing, No cyanosis, - - The right knee incision is healing well and the margins are well coapted with no erythema and no DC from the wound. there is still swelling Skin: No rashes, No breakdown Musculoskeletal: No Muscle Wasting Neurological: Cranial nerves II-XII grossly intact, Neuro grossly intact - she is moving all extremities and there is no facial asymmetry Vital Signs Temp Pulse Resp BP Pulse Ox 98.3 F 63 16 121/58 H 96 07/05/17 17:00 07/05/17 18:50 07/05/17 18:50 07/05/17 18:50 07/05/17 18:50 Oxygen Flow Rate (L/min) 2 Oxygen Delivery Method Nasal Cannula Weight: 271 lb 2.697 oz Body Mass Index (BMI) 43.7 Finger Stick Blood Glucose 97 Laboratory Tests Past 24 Hrs WBC 9.8 RBC 3.42 L Hgb 9.3 L Hct 30.0 L MCV 87.7 MCH 27.2 MCHC 31.0 L RDW 15.0 H WBC RBC Assessment/Plan Active and Suspected Problems (Last Reviewed 07/02/17 @ 14:45 by Hal Metzger) UTI (urinary tract infection) (Acute) Metabolic encephalopathy (Acute) Impressions 1. UTI - has pyuria but, no fever and no Leukocytosis or left shift. Given Rocephin in the ER and will continue. Urine culture has been sent 2. altered mental status - possibly due to metabolic encephalopathy OR could be due to serotonin S. Due to the combined use of Zoloft and Cymbalta. Pt also has a hx of drug OD in the past in a suicide attempt and this can not be ruled out at this time. she will be admitted to the hospital and will decrease the dose of all sedating medications at this time. DC both the Sertraline and the duloxetine for now to see if she improves. 3. morbid obesity 4. sleep disordered breathing with severe nocturnal hypoxemia dropping into the low 60's while sleeping on an overnight trending pulse ox done at the time of the last admission. Has failed to show up for sleep study ordered by Dr. Lion in the past. She has seen Dr. Garcia in the past but, not recently 5. chronic pain S. - with narcotic dependence 6. Hypertension, history of CVA, hyperlipidemia, coronary artery disease, anxiety/depression, history of suicide attempt in the past, restless leg syndrome, poly-pharmacy complicate care management, prognosis and recovery. This pt is at high risk for sudden due to severe hypoxia while sleeping and use of multiple sedating medications. I urged the to have her follow up for a sleep study....he told me that she refuses. I will wean down all the sedating medications and in my opinion she should be weaned off all sedating medication if she continues to be non-compliant with follow up for a sleep study and treatment for suspected MARIA ESTHER. I would also refer to a psychiatrist to manage the anxiety and depression with hx of a suicide attempt. Code Visit Inpatient E AND M: [id number] Init Hosp L3 07/06/17 0411 <Electronically signed by Nelsy Garrett DO> Date Nelsy King Signature: Date (if applicable) CC: Kaity Garrett; Martir Chua DO; Sudheer Lion MD Signed EMERGENCY DEPARTMENT Observed: 07/05/2017 Status: F Source: [place] SUMMARY 7:16 PM [facility] REPOSITORY [facility] Medical Records Department [address] [place] [address] Emergency Department Summary 07/05/171909 MR#: [id number] Acct: [id number] Name: MACKENZIE AKHTAR Rep #: [id number] : 1955 61 From: Norma Rita ARMSTRONG PCP: Sudheer Lion MD Status: REG ER - ER Visit Summary Date of Service: 07/05/17 Chief Complaint: [Mental status change] History of Present Illness: The patient is a 61 F [presents to the emergency department from home via EMS. Patient apparently was found on the floor this morning in a seated position just bobbing back and forth. Patient was helped to a chair. Patient has been less responsive than usual. Patient had a knee replacement 2 weeks ago performed by Dr. Martir Chua. On arrival patient denies any chest pain or shortness of breath. Patient denies any urinary symptoms. She denies any fever. Per she is not been complaining of chest pain or shortness of breath. Her states that he manages her pain medication and he does not believe that she has taken any extra narcotic pain medication. Patient has a history of chronic urinary tract infections.] Physical Examination: [HEENT-PERRLA, EOMI. Cranial nerves II through XII grossly intact. TMs clear. Mucous membranes moist. No adenopathy. Cardiovascular-regular rate and rhythm without murmur or ectopy Lungs-clear to auscultation, chest wall stable without crepitus or subcu emphysema Abdomen-normoactive bowel sounds, soft, nontender, no rebound or rigidity, no peritoneal signs. Neuro exam-patient somewhat somnolent however follows commands and moves all extremities. No focal deficits. Patient is alert to place and time. Extremities-intact 4, normal range of motion, normal pulses, atraumatic]. Patient has healing scar to anterior right knee. Patient has some soft tissue swelling noted but no significant erythema. No drainage from the incision site. Pulses intact. Test Results: [EKG obtained on arrival shows sinus rhythm with occasional PACs. Patient's ventricular rate was 77 bpm. CBC with differential obtained showed a white count of 9.8, hemoglobin 9.3, hematocrit 30, platelets 408. Chemistries unremarkable. Troponin was less than 0.02. Urinalysis was positive for 500 leukocyte esterase and greater than 100 WBCs. ABG obtained showed a pH of 7.399 CO2 of 44 PO2 of 58 O2 sat was 90% on room air. Chest x-ray showed questionable left lower lobe atelectasis versus early infiltrate. CT scan of the brain showed atrophy and chronic changes otherwise nothing acute.] Emergency Department Course and Treatment: [Patient was started on Rocephin IV and was given normal saline.] Treatment Plan: [Admit for further workup and evaluation of her mental status change] Disposition: [Admit] Impression: [Mental status change UTI] This note was generated with [employer] software. It may contain incorrect words, spelling, and punctuation that were not noted in review of the chart prior to signing ED Disposition - Plan for ED Patient: Chief Complaint: Alt LOC Referrals: Sudheer Lion MD [Primary Care Provider] - What to do if you have Problems For any increased pain, shortness of breath, bleeding, nausea or vomiting, chest pain, or any unexpected problems, contact your Primary Care Provider. Call [facility] ([phone]) or report to the closest Emergency Room. Call 911 if necessary. 07/05/171915 <Electronically signed by Nydia Reyna DO> Date Nydia Reyna DO Cosigner Signature (If Indicated): Date CC: Sudheer Lion MD LACTIC ACID Collected: 07/05/2017 Status: F Source: FR[place]Y 7:15 PM [facility] REPOSITORY Order Comment: Yes/No query for Sepsis Lactate Rule Y TYPE CODE TESTS RESULT OUT OF RANGE REFERENCE UNITS LAB L503.6005 0.4-2.0 mmol/L Normal LACTIC ACID 1.1 Performed By: #### L503.6005 #### [facility] [address] [place], [address] Observed: 07/05/2017 Status: F Source: [place]ANCY CULTURE, BLOOD (WB) 7:15 PM [facility] REPOSITORY BC No growth in 5 days. Performed By: #### M200.1000 #### [facility] [address] [place], [address] Observed: 07/05/2017 Status: F Source: [place]ANCY CULTURE, BLOOD (WB) 7:12 PM [facility] REPOSITORY BC No growth in 5 days. Performed By: #### M200.1000 #### [facility] [address] [place], [address] BLOOD GASES BY CPS Collected: 07/05/2017 Status: F Source: FRANCY 5:56 PM [facility] REPOSITORY TYPE CODE TESTS RESULT OUT OF RANGE REFERENCE UNITS LAB L9000.9990 Normal BLD GAS TYPE ART LAB L9001.1000 L Normal SITE Brachial LAB L9001.1010 NA Normal [place] TEST LAB L9001.1050 O2 Normal Delivery Dev Room Air LAB L9001.1104 ED Normal Results To MD LAB L9001.1105 Normal Time Given 1750 LAB L9001.1110 7.35-7.45 pH Normal - I-STAT 7.40 LAB L9001.1210 35-45 mmHg Normal pCO2 - ISTAT 43.9 LAB L9001.1310 75-100 mmHG Low 58 PO2 I-STAT LAB L9001.2300 22-26 mmol/L High HCO3 ISTAT 27.1 LAB L9001.2400 -2 to +2 mmol/L BE 2 Normal ISTAT LAB L9001.2415 mmol/L 28 Normal TOTAL CO2 ISTAT LAB L9001.2425 95-99 % Low 90 SO2 ISTAT Performed By: #### L9000.0800 #### [facility] Point of Care [address] [place] [address] URINALYSIS, COMPLETE Collected: 07/05/2017 Status: F Source: FRANCY 5:34 PM [facility] REPOSITORY Order Comment: Order Date: 07/05/17 How was Urine Obtained? CREW TRAINER TO SPECIFY TYPE CODE TESTS RESULT OUT OF RANGE REFERENCE UNITS LAB L400.3000 Yellow COLOR Normal Yellow LAB L400.3050 Clear Normal CLARITY Turbid LAB L400.3200 Normal mg/dl Normal GLUCOSE, UR Normal LAB L400.3300 Negative mg/dL Normal BILIRUBIN URINE Negative Result Comment: COLOR OF URINE MAY AFFECT DIPSTICK RESULTS. LAB L400.3400 Negative mg/dl Normal KETONE UR Negative LAB L400.3465 1.002-1.030 Normal SP.GR. DIPSTX 1.020 LAB L400.3550 5.0 - 8.0 pH Normal UR 6.0 LAB L400.3600 Negative mg/dl High PROT DIPSTX 100 LAB L400.3700 Normal mg/dl Normal UROBILI Normal LAB L400.3750 Negative Normal NITRITE UR Negative LAB L400.3780 Negative /ul High OCCULT 150 BLOOD-UR LAB L400.3800 Negative /ul High LEUK ESTERASE 500 LAB L400.4050 0-5 /hpf Normal WBC >100 SEEN LAB L400.4100 0-5 /hpf Normal RBC-UA 50-100 SEEN LAB L400.4150 5-10 /hpf Normal SQUAM EPI 0-5 SEEN LAB L400.4300 None Seen /hpf Normal BACTERIA RARE LAB L400.4350 <or=2+ /hpf Normal MUCUS, URINE 0 SEEN LAB L400.4900 Normal AMORPHOUS 1+ URATE Performed By: #### L400.0001 #### [facility] [place], [place], [address] Observed: 07/05/2017 Status: F Source: [place] CULTURE, URINE 5:34 PM [facility] REPOSITORY Order Date: 07/05/17 Urine Culture ORGANISM 1: Klebsiella pneumoniae sp pneum [place] Count >100,000 Klebsiella pneumoniae sp pneum: REACTION Amoxacillin/Clavulanic Acid $ <=2 S Ampicillin $ 16 R Ampicillin/Sulbactam $ 4 S Cefazolin $ <=4 S Cefepime $ <=1 S Ceftriaxone $ <=1 S Ciprofloxacin $ <=0.25 S ESBL - Ertapenim $$$ <=0.5 S Gentamicin $ <=1 S Imipenem *NF <=0.25 S Levofloxacin $ <=0.12 S Nitrofurantoin $ 32 S Piperacillin/Tazobactam $$ <=4 S Tobramycin $ <=1 S Trimethoprim/Sulfametho $ <=20 S (NF) indicates non-formulary drug at [facility]. Approval by Infectious Disease Specialist required before non-formulary drugs may be ordered and/or dispensed. Performed By: #### M100.0650 #### [facility] [address] [place], [place], [address] CBC W/DIFF, AUTOMATED Collected: 07/05/2017 Status: F Source: [place] 5:15 PM [facility] REPOSITORY TYPE CODE TESTS RESULT OUT OF RANGE REFERENCE UNITS LAB L100.1000 4.4-11.0 K/mm3 Normal WBC 9.8 LAB L100.1200 4.2-5.4 M/mm3 Low RBC 3.42 LAB L100.1300 12.0-15.0 g/dl Low HGB 9.3 LAB L100.1400 37-47 % Low HCT 30.0 LAB L100.1500 81-99 fL Normal MCV 87.7 LAB L100.1600 27.0-32.0 pg Normal MCH 27.2 LAB L100.1700 32-36 g/gl Low MCHC 31.0 LAB L100.1810 11.6-14.6 % High RDW CV 15.0 LAB L100.1820 35.1-43.9 fl High RDW SD 46.2 LAB L100.1900 150-450 K/mm3 Normal PLT 408 LAB L100.2000 6.2-12.0 fl Normal MPV 9.7 LAB L100.2100 47-70 % Normal NEUT% 68.2 LAB L100.2200 19-41 % Low LY% 18.1 LAB L100.2300 0-10 % Normal MONO% 7.4 LAB L100.2400 0-5 % Normal EO% 4.6 LAB L100.2500 0-1 % High BASO% 1.6 LAB L100.2550 0.0-0.9 % Normal IM GRAN % 0.100 Result Comment: IG% - Immature Granulocytes (promyelocytes, myelocytes and metamyelocytes) > 1% indicates that a LEFT SHIFT is Present. LAB L100.2620 2.0-7.7 X10 3/uL Normal Absolute Neut 6.7 LAB L100.2720 0.83-4.51 X10 3/ul Normal Absolute Lymph 1.77 Performed By: #### L100.0100 #### [facility] [address] [place], [address] BASIC METABOLIC Collected: 07/05/2017 Status: F Source: [place] PROFILE ([facility]) 5:15 PM [facility] REPOSITORY Order Comment: 'TROP' Serial specimen #1, #2, #3, or #4: 1 TYPE CODE TESTS RESULT OUT OF RANGE REFERENCE UNITS LAB L501.0100 74-106 mg/dL Normal GLU 90 Result Comment: Please note revised GLUCOSE reference range effective 2017. LAB L501.1000 7-18 mg/dL Normal BUN 18 LAB L501.1100 0.55-1.02 mg/dL High CREAT,SERUM 1.05 Result Comment: The validity of the calculated GFR AND GFRAA in patients over 70 years has not been determined. Clinical correlation is essential. LAB L501.1110 >60 mL/min Low EST GFR 56 Result Comment: Non- GFR Calc LAB L501.1115 >60 mL/min Normal EST GFR - AA 68 Result Comment: GFR Calc LAB L501.1255 ml/min Normal Estimated CRCL 51.34 LAB L501.1300 10-20 RATIO Normal BUN/CRE 17.1 LAB L501.2200 8.5-10 mg/dL Normal .1 CA 9.0 LAB L501.5300 136-14 mmol/L Normal 5 NA 143 LAB L501.5600 3.5-5. mmol/L Normal 1 K 4.3 LAB L501.5900 98-107 mmol/L Normal CL 107 LAB L501.6100 21.0-3 mmol/L Normal 2.0 CO2 29.0 LAB L501.6200 5-15 Normal GAP 7 Performed By: #### L500.2500, L501.4010 #### [facility] [address] [place], [address] TROPONIN-I Collected: 07/05/2017 Status: F Source: [place] 5:15 PM [facility] REPOSITORY Order Comment: 'TROP' Serial specimen #1, #2, #3, or #4: 1 TYPE CODE TESTS RESULT OUT OF RANGE REFERENCE UNITS LAB L501.4010 <0.06 ng/mL Normal < 0.02 TROPONIN-I Result Comment: TROPONIN-I EXPECTED VALUES <0.05 NEGATIVE 0.06 - 0.59 AT RISK OF [place] > OR = 0.60 SUGGEST [place] Performed By: #### L500.2500, L501.4010 #### [facility] [address] [place], [address] CHEST 1 VIEW Observed: 07/05/2017 Status: F Source: [place] (PORTABLE) 5:15 PM [facility] REPOSITORY [facility] Imaging Services [address] [place] [address] Chest 1 View (Portable) MR#: [id number] Acct: [id number] Name: MACKENZIE AKHTAR Rep #: [id number] : 1955 F 61 From: Hoang Hart MD PCP: Sudheer Lion MD Status: PRE ER Study: Chest 1 View (Portable) Date of Exam: 07/05/17 Exam# [id number] Ordering Dr: Nydia Reyna DO STUDY: X-RAY CHEST REASON FOR EXAM: Female, 61 years old. Altered level consciousness TECHNIQUE: AP portable COMPARISON: January 17, 2016 FINDINGS: Diminished inspiratory effort is seen. There does appear to be very mild pulmonary interstitial edema. There is mild asymmetric atelectasis or infiltrate at the left base. There is no demonstrated pleural abnormality. Heart is enlarged.. Normal mediastinum and aayush. Normal visualized pulmonary arteries. Normal visualized aortic arch and descending thoracic aorta. Dorsal spine demonstrates spondylosis. Normal visualized ribs, clavicles, and shoulders. There is no demonstrated abnormality of the visualized soft tissue structures of the upper abdomen. RAD/Chest 1 View (Portable) IMPRESSION: Mild pulmonary interstitial edema.. Focal left lower lobe atelectasis or evolving infiltrate Electronically Signed: Hoang Hart MD at 18:05 EDT , Service support , CC: Sudheer Lion MD; Nydia Reyna DO Manager Enrollment: Signed BRAIN/HEAD WITHOUT Observed: 07/05/2017 Status: F Source: FRANCY CONTRAST 5:15 PM [facility] REPOSITORY [facility] [place] [address] Brain/Head without Contrast MR#: [id number] Acct: [id number] Name: MACKENZIE AKHTAR Rep #: [id number] : 1955 F 61 From: Hoang Hart MD PCP: Sudheer Lion MD Status: REG ER Study: Brain/Head without Contrast Date of Exam: 07/05/17 Exam# [id number] Ordering Dr: Nydia Reyna DO STUDY: CT BRAIN WITHOUT CONTRAST REASON FOR EXAM: Female, 61 years old. Right-sided weakness and hypertension RADIATION DOSAGE (If Supplied By Facility): CTDIvol = ( 60.81 ) mGy, DLP = ( 1067.08 ) mGycm TECHNIQUE: Transaxial CT imaging of the brain was performed without administration of intravenous contrast material. Individualized dose optimization techniques were used for this CT. COMPARISON: MRI of the brain December 04, 2016 FINDINGS: Normal soft tissue structures. Normal calvarium. Mild atrophy and periventricular white matter ischemic changes.. Possible old lacunar infarcts in left basal ganglia and posterior thalamus. Normal brainstem. Normal cerebellum. There is no intracranial hemorrhage. There are no findings of an acute ischemic infarction. Moderate mucosal thickening of the right maxillary sinus and mild mucosal thickening of the right ethmoid and sphenoid sinuses CT/Brain/Head without Contrast IMPRESSION: Atrophy and periventricular white matter ischemic changes. Question old left lacunar infarcts. No evidence for acute bleed. If concern for acute infarct MRI recommended Electronically Signed: Hoang Hart MD at 18:58 EDT , Service support , CC: Sudheer Lion MD; Nydia Reyna DO Manager Enrollment: Signed LIVER PROFILE Collected: 07/05/2017 Status: F Source: FRANCY 5:15 PM [facility] REPOSITORY TYPE CODE TESTS RESULT OUT OF RANGE REFERENCE UNITS LAB L501.1500 6.4-8.2 g/dL Normal T PROT 7.1 LAB L501.1800 3.2-5.0 g/dL Normal ALB 3.3 LAB L501.1950 2.2-4.2 g/dL Normal GLOB 3.8 LAB L501.4100 15-37 U/L High AST 44 LAB L501.4305 45-117 U/L High ALK P 176 LAB L501.4405 13-56 U/L Normal ALT 25 Result Comment: Please note revised ALT reference range effective 2017. LAB L501.4600 0.20-1.00 mg/dL Normal T BILI 0.30 LAB L501.4700 0.00-0.30 mg/dL Normal D BILI 0.06 Performed By: #### L500.3400, L501.3620, L501.9520, L503.5510 #### [facility] [address] [place], [address] CPK TOTAL, CREATINE Collected: 07/05/2017 Status: F Source: FRANCY KINASE 5:15 PM [facility] REPOSITORY TYPE CODE TESTS RESULT OUT OF RANGE REFERENCE UNITS LAB L501.3620 26-192 U/L High CPK TOTAL 867 Performed By: #### L500.3400, L501.3620, L501.9520, L503.5510 #### [facility] [address] [place], [address] THYROID STIM HORMONE Collected: 07/05/2017 Status: F Source: FRANCY (TSH) 5:15 PM [facility] REPOSITORY TYPE CODE TESTS RESULT OUT OF RANGE REFERENCE UNITS LAB L501.9520 0.358-3.74 uIU/mL Normal TSH 1.14 Performed By: #### L500.3400, L501.3620, L501.9520, L503.5510 #### [facility] [address] [place], [address] VITAMIN B12 Collected: 07/05/2017 Status: F Source: [place] 5:15 PM [facility] REPOSITORY TYPE CODE TESTS RESULT OUT OF RANGE REFERENCE UNITS LAB L503.0105 211-911 pg/mL Normal Vitamin B12 453 Performed By: #### L503.0105 #### [facility] [address] [place], [address] EMERGENCY DEPARTMENT Observed: 06/29/2017 Status: F Source: [place] SUMMARY 11:09 PM [facility] REPOSITORY [facility] Medical Records Department [address] [place] [address] Emergency Department Summary 06/29/17 2249 MR#: [id number] Acct: [id number] Name: MACKENZIE AKHTAR Rep #: [id number] : 1955 61 From: Martir Valle MD PCP: Sudheer Lion MD Status: REG ER - ER Visit Summary Date of Service: 06/29/17 Chief Complaint: Knee injury History of Present Illness: The patient is a 61 F is 2 weeks status post right total knee replacement by Dr. Chua presents to the emergency department with injury to right knee. Patient states that she was using her walker to turn. She lost her balance and tripped. She landed directly on her right knee. She did not strike her head. She denies loss of consciousness. She noted some bleeding in the knee. She states she is not having any significant pain. The patient denies any other injury. She called squad because of the bleeding and presented here. Physical Examination: Vital signs reviewed General: Well-nourished, well-developed Head: Normocephalic, atraumatic Eyes: Pupils equal and reactive, extraocular muscles intact Neck, supple, no lymphadenopathy Heart: Regular rate and rhythm Respiratory: No distress, clear bilaterally Abdomen: Soft, nontender, nondistended, no peritoneal signs Back: Nontender Extremities: Right knee shows normal postoperative change. There is a minimal amount of dehiscence at the mid third of the incision that is less than 1 cm. There is no purulence. The patient has no pain with motion. She has normal pulses. Skin: Normal color no rash Neuro: Alert and oriented, no focal or lateralizing deficits Test Results: X-ray shows hardware intact Emergency Department Course and Treatment: The patient landed directly on her knee. She does have a very minimal amount of dehiscence. I did obtain plain films. These are unremarkable. The patient's knee was cleaned. I did discuss care with Dr. hCaparro. The patient does have postop follow-up on Sunday. She is placed in a sterile dressing. She is counseled to keep this covered. She was counseled on wound care and reasons to return. At this time, I do not feel prophylactic antibiotics are necessary. The patient will be discharged home. Treatment Plan: [] Disposition: Discharge Impression: 1. Postoperative wound dehiscence secondary to fall This note was generated with [employer] dictation software. It may contain incorrect words, spelling, and punctuation that were not noted in review of the chart prior to signing ED Disposition - Plan for ED Patient: Chief Complaint: Fall Instructions: ED Wound Check Post Op Bleeding Referrals: Martir Chua, [STAFF PHYSICIAN] - What to do if you have Problems For any increased pain, shortness of breath, bleeding, nausea or vomiting, chest pain, or any unexpected problems, contact your Primary Care Provider. Call [facility] ([phone]) or report to the closest Emergency Room. Call 911 if necessary. 06/29/17 2309 <Electronically signed by Martir Valle MD> Date Martir Valle MD Cosigner Signature (If Indicated): Date CC: Sudheer Lion MD KNEE 1 OR 2 VIEWS Observed: 06/29/2017 Status: F Source: [place] 9:34 PM [facility] REPOSITORY [facility] Imaging Services [address] [place], [place] [address] [address] Knee 1 or 2 Views MR#: [id number] Acct: [id number] Name: MACKENZIE AKHTAR Rep #: [id number] : 1955 F 61 From: Wilber Pulido MD PCP: Sudheer Lion MD Status: REG ER Study: Knee 1 or 2 Views Date of Exam: 06/29/17 Exam# [id number] Ordering Dr: Martir Valle MD STUDY: X-RAY - RIGHT KNEE REASON FOR EXAM: Female, 61 years old. Fall. TECHNIQUE: 2 view(s) of the knee. COMPARISON: 04/21/2017 FINDINGS: There are stable postsurgical changes from a right knee arthroplasty with intact hardware and satisfactory alignment. There is no evidence of fracture or dislocation. There is diffuse soft tissue swelling. There are no radiodense foreign bodies. RAD/Knee 1 or 2 Views IMPRESSION: Stable postsurgical changes from a right knee arthroplasty with intact hardware and satisfactory alignment. No acute fracture or dislocation. Soft tissue swelling. Electronically Signed: Wilber Monsugargabe, at 22:53 EDT Tel , Service support , CC: Martir Valle MD; Sudheer Lion MD Manager Enrollment: Signed VENOUS DUPLEX LOWER Observed: 06/26/2017 Status: F Source: [place] EXTREMITY 6:10 PM [facility] REPOSITORY [facility] Cardiovascular Services [address] [place] [address] Venous Duplex US, Unilateral 06/26/17 1121 MR#: [id number] Acct: [id number] Name: GIOVANABLAYNENITA Johnson Rep #: [id number] : 1955 61 From: Adebayo Perez MD Attending Dr: Laina Campos DO Status: REG CLI Ordering Dr: Laina Campos DO Date: 06/26/17 Location: [facility] Sex: F C Admitted: Reason For Study: M79.89 RIGHT GSV is normal. CFV is compressible, spontaneous, phasic, competent and demonstrates normal augmentation. FV is compressible, spontaneous, phasic, competent and demonstrates normal augmentation. POP V is compressible, spontaneous, phasic, competent and demonstrates normal augmentation. T/P Trunk is compressible. PTV is compressible. RT PerV is compressible. Procedure Exam performed in department. The exam was of fair technical quality due to pt body habitus. A preliminary report was called and/or faxed to Dr. Chua. Interpretation Summary There is no evidence of right lower extremity deep vein thrombosis. Right greater saphenous vein appears patent and compressible segmentally. Ordering Physician: Laina Campos Referring Physician: Martir Chua Performed By: Radhames Padilla RVT 06/26/17 180 Date Adebayo Perez MD CC: Sudheer Lion MD; Laina Campos DO Date Dictated: 06/26/17 1121 Date Transcribed: 06/26/171808 Manager Enrollment: Signed EMERGENCY DEPARTMENT Observed: 06/26/2017 Status: F Source: [place] SUMMARY 1:10 AM [facility] REPOSITORY [facility] Medical Records Department [address] [place] [address] Emergency Department Summary 06/26/17 0005 MR#: [id number] Acct: [id number] Name: MACKENZIE AKHTAR Rep #: [id number] : 1955 61 From: Laina Campos DO PCP: Sudheer Lion MD Status: DEP ER - ER Visit Summary Date of Service: 06/26/17 Chief Complaint: [] Right knee pain History of Present Illness: The patient is a 61 F [] complaining of right knee pain status post right total knee replacement [address] Chua. Patient reports taking Percocet which has mildly improved the pain. She is complaining of worsening pain and swelling of the knee. Patient spoke with her orthopedic surgeon who recommended she come to the emergency department for evaluation of her leg to rule out DVT. She presents at 11:30 PM. The ultrasound/Doppler planning technician leaves at 11 PM. We are unable to provide that study at this time. Patient denies chest pain or shortness of breath. No other complaints at this time. Physical Examination: [] Afebrile, vital signs stable. The obese female in no acute distress. Cardiovascular exam is regular rate and rhythm. Lungs are clear to auscultation. Examination of the right knee reveals a normal-appearing surgical cicatrix without signs of infection. The wound is healing appropriately without signs of wound drainage. There is no erythema. There is slight swelling. No effusion. There is a negative Homans sign. There is no pain on calf palpation. Test Results: [] None. Emergency Department Course and Treatment: [] Patient was given a 10 mg dose of Eliquis because were unable to provide a Doppler ultrasound at this time. Patient was given 1.5 mg of IM Dilaudid for analgesia. She was encouraged to continue taking her previously prescribed Percocet for pain. She was instructed to dress her wound. We will provide an additional new dressing as I remove the dressing for the first time since the operation 6 days ago. Again it appears very well. Patient's felt that he was unable to care for her needs and was banding admission. I told him I felt this was inappropriate and that right now we will be able to provide his and outpatient form to come in tomorrow and obtain a Doppler ultrasound of the right lower extremity and that I would appropriately treat her pain prior to discharge. Treatment Plan: [] Follow-up with orthopedic surgeon. Present tomorrow for outpatient Doppler ultrasound. Eliquis orally 1 dose in the emergency department. Analgesia in the emergency department. Disposition: [] Discharge, stable. Impression: [] Right knee pain status post surgery This note was generated with [employer] dictation software. It may contain incorrect words, spelling, and punctuation that were not noted in review of the chart prior to signing ED Disposition - Plan for ED Patient: Chief Complaint: Lower Extremity Injury Referrals: Sudheer Lion MD [Primary Care Provider] - What to do if you have Problems For any increased pain, shortness of breath, bleeding, nausea or vomiting, chest pain, or any unexpected problems, contact your Primary Care Provider. Call [facility] ([phone]) or report to the closest Emergency Room. Call 911 if necessary. 06/26/17106 <Electronically signed by Laina Campos DO> Date Laina Campos DO Cosigner Signature (If Indicated): Date CC: Sudheer Lion MD DISCHARGE INSTRUCTION Observed: 06/26/2017 Status: F Source: FRANCY 12:11 AM [facility] REPOSITORY [facility] Medical Records Department [address] [place] [address] Discharge Instruction 06/26/17 0008 MR#: [id number] Acct: [id number] Name: MACKENZIE AKHTAR Rep #: [id number] : 1955 61 From: Laina Campos DO PCP: Sudheer Lion MD Status: REG ER ED Disposition - Plan for ED Patient: Disposition: Home or Assisted Living Chief Complaint: Lower Extremity Injury Instructions: Total Knee Replacement Referrals: Sudheer Lion MD [Primary Care Provider] - Martir Chua DO [STAFF PHYSICIAN] - Additional Instructions: Come tomorrow for outpatient ultrasound. Please follow instructions on outpatient ultrasound sheet. What to do if you have Problems For any increased pain, shortness of breath, bleeding, nausea or vomiting, chest pain, or any unexpected problems, contact your Primary Care Provider. Call [facility] ([phone]) or report to the closest Emergency Room. Call 911 if necessary. 06/26/17 001 <Electronically signed by Laina Campos DO> Date Laina Campos DO Cosigner Signature (If Indicated): Date CC: Sudheer Lion MD DISCHARGE SUMMARY Observed: 06/25/2017 Status: F Source: FRANCY 10:17 AM [facility] REPOSITORY [facility] Medical Records Department [address] [place] [address] Discharge Summary 06/22/17 1324 MR#: [id number] Acct: [id number] Name: MACKENZIE AKHTAR Rep #: [id number] : 1955 61 From: Nelsy Garrett DO PCP: Sudheer Lion MD Status: DIS IN Y Location: [facility] [place] [id number] Discharge Date and Diagnosis Date of Admission: 04/21/13 Date of Discharge: 06/22/17 - Primary Discharge Diagnosis S/P elective R TKR 06/[address] Chua Nocturnal hypoxemia Uncontrolled HTN Newly diagnosed DM II - HGBA1C is 7.1% Sleep disordered breathing N/N anemia - likely due to blood loss from the surgery - Secondary Discharge Diagnosis Chronic Problems (Last Reviewed 06/06/17 @ 10:31 by Judith Mai) Coronary artery disease (Chronic) Morbid obesity (Chronic) Right sided cerebral infarction (Chronic) Hypertension (Chronic) Hyperlipidemia (Chronic) RLS Hospital Course and Treatment Imaging Results: Clinical Impression(s) from Imaging Studies Knee X-Ray 06/19/17 09:10 IMPRESSION: Total knee replacement. There is good alignment. Postoperative soft tissue changes. Electronically Signed: Boone Castro MD at 12:54 EDT Tel [phone], Service support , Laboratory Results - last 24 hr WBC 9.6 RBC 3.48 L Hgb 9.5 L Hct 30.1 L MCV 86.5 MCH 27.3 MCHC 31.6 L Hospitalist service Operations: None, total knee replacement Procedures: - - overnight trending pulse ox Summary of Care Provided: Patient is a 61-year-old female with a history of hypertension, super obesity, coronary artery disease, hyperlipidemia, anxiety/depression with a previous suicide attempt and history of a right cerebral CVA who was admitted to the hospital following an elective right total knee replacement by Dr. Chua. The post operative course was complicated by hypersomnolence due to multiple sedating medications in a morbidly obese patient with untreated MARIA ESTHER. She has never had a sleep study. BP's were markedly increased at times and the hospitalist service was consulted to participate and manage medical co-morbidities. Medications were adjusted and the sedating meds were discontinued or the doses were decreased. She had fasting hyperglycemia and a HGBA1C was obtained and was increased at 7.1%. She has previously not carried a dx of DM II. An overnight trending pulse ox was done and the Oxygen saturation drops to < 60% at times. On the day of DC she was able to ambulate with a FWW and CGA. She was more alert and able to stay awake during my exam. She was discharged home on decreased doses of Xanax and Mirapex and the Lisinopril had been increased to 40 mg once daily at HS. She was strongly advised to follow up in the pulmonary office in 2 weeks to arrange PFT's and a PSG. She will follow up with Dr. Chua in the offive in [address] Lion in 1-2 weeks to discuss, diet, weight loss and treatment for newly diagnosed DM II. This note was generated with [employer] dictation software. It may contain incorrect words, spelling, and punctuation that were not noted in checking the note before signing. Discharge Activity: Return to Normal Activity, May not drive while taking narcotic pain medications., May Shower, Use Walker May shower in (days): 2 Ice area for (Minutes): 20 Weight Bearing Status: Weight bearing as tolerated Call your doctor if your incision/area has: Continuous Slow Oozing, Sudden Increased Bleeding, Increased Pain/ Swelling, Increased Redness, Foul Smelling Discharge, Swelling at the incision site Call your doctor if you observe: Fever of 101 or Higher, Coldness, Increased Pain, Numbness or Tingling, Change in Color, Inability to urinate, Inability to have a bowel movement, Using more than one pad per hour, Shortness of breath, Dizziness, Fainting spells, Swelling in the ankles, Chest pain, Prolonged hiccoughing, Increased palpitations (irregular heartbeat), Calf discomfort, Uncontrolled pain Suture Line Care: Avoid Pulling/Pushing, Avoid Pinching/Bending Change Dressing in (Days):: 5 Remove Dressing in (days):: 5 Cleanse incision/area with: Soap AND Water Additional Dressing/Incision Instructions:: Remove dressing in 5 days. May shower at this time. Do not submerge wound. Replace Andrzej wrap as needed to protect wound. Wash hands prior to touching wound. Home Medications: Medications to take at Discharge Clopidogrel Bisulfate [Plavix] 75 mg PO QHS 08/25/15 Sertraline HCl [Zoloft] 50 mg PO DAILY 08/25/15 Atorvastatin Calcium [Lipitor] 40 mg PO QHS 01/27/16 L.acidoph,Paracasei, B.lactis [Probiotic] 1 ea PO DAILY 01/27/16 Pantoprazole Sodium [Protonix] 40 mg PO DAILY 01/27/16 Amlodipine Besylate [Norvasc] 10 mg PO QDAY 06/20/17 Docusate Sodium [Colace] 100 mg PO BID PRN PRN #30 cap 06/21/17 Famotidine [Pepcid] 20 mg PO BID #60 tab 06/21/17 Oxycodone HCl/Acetaminophen [Percocet 5/325] 1 - 2 tablet PO Q4H PRN PRN #60 tablet 06/21/17 ProMETHAzine [Phenergan] 25 mg PO Q4H PRN PRN #10 tab 06/21/17 ALPRAZolam [Xanax] 0.5 mg PO BID #1 06/22/17 Aspirin [Aspirin, Baby] 81 mg PO BID #60 tab.chew 06/22/17 Iron Polysaccharide Complex [Ferrex 150] 150 mg PO DAILYCM #30 cap 06/22/17 Lisinopril [Zestril] 40 mg PO QHS #30 tab 06/22/17 Multivitamins,Therapeutic [Multivitamin] 1 tablet PO DAILYCM tablet 06/22/17 Pramipexole Di-HCl [Mirapex] 0.5 mg PO QHS #30 tab 06/22/17 Following Prescrptions Were Given to Patient: Oxycodone HCl/Acetaminophen [Percocet 5/325] 1 - 2 tablet PO Q4H PRN PRN #60 tablet PRN Reason: Pain ProMETHAzine [Phenergan] 25 mg PO Q4H PRN PRN #10 tab PRN Reason: Nausea Docusate Sodium [Colace] 100 mg PO BID PRN PRN #30 cap PRN Reason: Constipation Iron Polysaccharide Complex [Ferrex 150] 150 mg PO DAILYCM #30 cap Lisinopril [Zestril] 40 mg PO QHS #30 tab Pramipexole Di-HCl [Mirapex] 0.5 mg PO QHS #30 tab Aspirin [Aspirin, Baby] 81 mg PO BID #60 tab.chew Famotidine [Pepcid] 20 mg PO BID #60 tab Primary Care Physician: Sudheer Lion MD [Primary Care Provider] - Please follow up with your Primary Care Physician in: 1-2 weeks to check the blood pressure Please Follow Up With: Martir Chua DO When: call [facility] for appt for 2 weeks Please Follow Up With: Chris Pineda DO - pulmonary office When: 2 weeks to arrange a sleep study and pulmonary function tests Minutes spent on discharge:: 30 Patient Condition:: Fair Meaningful Use Info Meaningful Use Diagnoses (Choose all that apply): None applicable Code Visit Inpatient E AND M: 44732 Disch Hosp 06/25/17 1017 <Electronically signed by Nelsy Garrett DO> Date Nelsy Garrett DO Cosigner Signature (if applicable): Date CC: Kaity Garrett; Martir Chua DO; Sudheer Lion MD Signed DISCHARGE SUMMARY Observed: 06/23/2017 Status: F Source: FRANCY 11:02 AM [facility] REPOSITORY [facility] Medical Records Department [address] [place] [address] Discharge Summary 06/23/17 1059 MR#: [id number] Acct: [id number] Name: MACKENZIE AKHTAR Rep #: [id number] : 1955 61 From: Martir Chua DO PCP: Sudheer Lion MD Status: DIS IN Y Location: [facility] [place] [id number] Discharge Summary Date of Admission: 06/19/17 Date of Discharge: 06/22/17 Summary: 61-year-old female who was recently admitted for a right total knee arthroplasty. Patient was admitted to the floor for 24 hours of IV antibiotics appropriate IV and p.o. pain medication DVT prophylaxis to include 325 mg p.o. twice daily of aspirin with GI prophylaxis. Patient was having hypertensive episodes and despite her home medications was not adequately controlled at which time the hospitalist team was consulted. They modified her medications at that point. Patient had complained of pain which was attempted to be adjusted accordingly however the patient became somnolent despite reporting pain. At that point time we removed any medication that may require increased somnolence with usage and advised the patient that she needs to discontinue depressed through with her current pain management. At rest the patient was adequately controlled with p.o. pain medication. Patient tolerated regular diet. She was amatory physical therapy. She was evaluated by case management and set up for home health. Patient has a history of a cerebrovascular accident that caused ipsilateral right hemiparesis to some degree. Patient has a history of using Plavix. That will be restarted at this point time the patient was then use 81 mg p.o. twice daily of aspirin for DVT prophylaxis. Assessment: Right knee osteoarthritis status post right total knee arthroplasty. History of cerebrovascular accident. Hypertension. Plan: Hospitalist team is also providing discharge summary in terms of medication usage and recommendation of following up with her PCP want to modify her hypertensive medication but also for recommendation for sleep study due to obstructive sleep apnea and desaturations during the evening time. Patient will continue with home health at this point. Again DVT prophylaxis to include 81 mg of aspirin p.o. twice daily with GI prophylaxis. Early aggressive range of motion and weightbearing and continue with FRANCI hose as long as patient is limited in overall ambulation. Patient may resume Plavix at this point time. Patient will follow-up with me in 2 weeks for a wound check and range of motion check. Any major issues please contact me. 06/23/17 8523 <Electronically signed by Martir Chua DO> Date Martir Chua DO Cosigner Signature (if applicable): Date CC: Martir Chua DO; Sudheer Lion MD Signed DISCHARGE INSTRUCTION Observed: 06/22/2017 Status: F Source: FRANCY 1:23 PM [facility] REPOSITORY [facility] Medical Records Department [address] [place] [address] Instructions for Home/Discharge Instructions 06/22/17 1259 MR#: [id number] Acct: [id number] Name: MACKENZIE AKHTAR Rep #: [id number] : 1955 61 From: Nelsy Garrett DO PCP: Sudheer Lion MD Status: ADM IN Discharge Activity: Return to Normal Activity, May not drive while taking narcotic pain medications., May Shower, Use Walker May shower in (days): 2 Ice area for (Minutes): 20 Weight Bearing Status: Weight bearing as tolerated Call your doctor if your incision/area has: Continuous Slow Oozing, Sudden Increased Bleeding, Increased Pain/ Swelling, Increased Redness, Foul Smelling Discharge, Swelling at the incision site Call your doctor if you observe: Fever of 101 or Higher, Coldness, Increased Pain, Numbness or Tingling, Change in Color, Inability to urinate, Inability to have a bowel movement, Using more than one pad per hour, Shortness of breath, Dizziness, Fainting spells, Swelling in the ankles, Chest pain, Prolonged hiccoughing, Increased palpitations (irregular heartbeat), Calf discomfort, Uncontrolled pain Suture Line Care: Avoid Pulling/Pushing, Avoid Pinching/Bending Change Dressing in (Days):: 5 Remove Dressing in (days):: 5 Cleanse incision/area with: Soap AND Water Additional Dressing/Incision Instructions:: Remove dressing in 5 days. May shower at this time. Do not submerge wound. Replace Andrzej wrap as needed to protect wound. Wash hands prior to touching wound. Additional Instructions: 1. You are on Mirapex and Xanax at a high dose and now also narcotics. The combined effect of all these medications is to make you very lethargic. You did much better on the morning of discharge because the dose of the Xanax and the Mirapex were reduced. I think that you have sleep apnea. We did a test on the last night you were in the hospital and it showed that your oxygen drops significantly when you are sleeping. When the oxygen drops to lower than 88% you are at risk for problems with the rhythm of the heart and sudden . Your oxygen drops to less than 60% at times. Taking medications that make you sleepy and depress the breathing like Xanax, Mirapex, Narcotics are very dangerous in patients with oxygen levels this low. Even if you had a sleep study 3 years ago you need another because you have gained 52 lbs since 2013 according to our records and this affects breathing. You can follow up in the pulmonary department with Dr. Jiang or Dr. Pineda to arrange for a sleep study. There office is in the hospital. 2. Your BP was somewhat high in the hospital and I have increased the dose of the Lisinopril. You will now take 40 mg daily at bedtime. 3. I suggest you decrease the Xanax to 0.5 mg twice a day. I also suggest you take a smaller dose of Mirapex at bedtime and I have given you a prescription. Restless leg is caused by sleep apnea and it may go away if you get treated. sleep apnea causes MANY problems when not treated. I am giving you some literature to read. Depression is frequently caused by untreated sleep apnea.....in addition to lethargy, problems with memory, restless leg, addictions, etc. Pending Tests on Discharge: none Allergies/Adverse Reactions: Allergies ciprofloxacin [From Cipro] Allergy (Verified 05/16/17 13:03) Unknown escitalopram oxalate [From Lexapro] Allergy (Verified 05/16/17 13:03) Unknown heparin Allergy (Verified 05/16/17 13:03) Unknown mupirocin [From Bactroban] Allergy (Verified 05/16/17 13:03) Unknown trazodone Allergy (Verified 05/16/17 13:03) Unknown adhesive tape Adverse Reaction (Verified 05/16/17 13:03) Other Medications to take at Discharge Clopidogrel Bisulfate [Plavix] 75 mg PO QHS 08/25/15 Sertraline HCl [Zoloft] 50 mg PO DAILY 08/25/15 Atorvastatin Calcium [Lipitor] 40 mg PO QHS 01/27/16 L.acidoph,Paracasei, B.lactis [Probiotic] 1 ea PO DAILY 01/27/16 Pantoprazole Sodium [Protonix] 40 mg PO DAILY 01/27/16 Amlodipine Besylate [Norvasc] 10 mg PO QDAY 06/20/17 Docusate Sodium [Colace] 100 mg PO BID PRN PRN #30 cap 06/21/17 Famotidine [Pepcid] 20 mg PO BID #60 tab 06/21/17 Oxycodone HCl/Acetaminophen [Percocet 5/325] 1 - 2 tablet PO Q4H PRN PRN #60 tablet 06/21/17 ProMETHAzine [Phenergan] 25 mg PO Q4H PRN PRN #10 tab 06/21/17 ALPRAZolam [Xanax] 0.5 mg PO BID #1 06/22/17 Aspirin [Aspirin, Baby] 81 mg PO BID #60 tab.chew 06/22/17 Iron Polysaccharide Complex [Ferrex 150] 150 mg PO DAILYCM #30 cap 06/22/17 Lisinopril [Zestril] 40 mg PO QHS #30 tab 06/22/17 Multivitamins,Therapeutic [Multivitamin] 1 tablet PO DAILYCM tablet 06/22/17 Pramipexole Di-HCl [Mirapex] 0.5 mg PO QHS #30 tab 06/22/17 The following prescriptions were given: Oxycodone HCl/Acetaminophen [Percocet 5/325] 1 - 2 tablet PO Q4H PRN PRN #60 tablet PRN Reason: Pain ProMETHAzine [Phenergan] 25 mg PO Q4H PRN PRN #10 tab PRN Reason: Nausea Docusate Sodium [Colace] 100 mg PO BID PRN PRN #30 cap PRN Reason: Constipation Iron Polysaccharide Complex [Ferrex 150] 150 mg PO DAILYCM #30 cap Lisinopril [Zestril] 40 mg PO QHS #30 tab Pramipexole Di-HCl [Mirapex] 0.5 mg PO QHS #30 tab Aspirin [Aspirin, Baby] 81 mg PO BID #60 tab.chew Famotidine [Pepcid] 20 mg PO BID #60 tab Primary Care Physician: Sudheer Lion MD [Primary Care Provider] - Please follow up with your Primary Care Physician in: 1-2 weeks to check the blood pressure Please Follow Up With: Martir Chua DO When: call [facility] for appt for 2 weeks Please Follow Up With: Chris Pineda DO - pulmonary office When: 2 weeks to arrange a sleep study and pulmonary function tests Proposed Discharge Date: 06/22/17 06/22/17 1323 <Electronically signed by Nelsy Garrett DO> Date Nelsy Savi Garrett DO CC: Chris Pineda D.O.; Yousif Gunter; Martir Chua DO; Sudheer Lion MD DISCHARGE INSTRUCTION Observed: 06/22/2017 Status: F Source: [place] 9:19 AM [facility] REPOSITORY [facility] Medical Records Department [address] [place] [address] Instructions for Home/Discharge Instructions 06/21/17 1625 MR#: [id number] Acct: [id number] Name: MACKENZIE AKHTAR Rep #: [id number] : 1955 61 From: Martir Chua DO PCP: Sudheer Lion MD Status: ADM IN Discharge Activity: Return to Normal Activity, May not drive while taking narcotic pain medications., May Shower, Use Walker May shower in (days): 2 Ice area for (Minutes): 20 Weight Bearing Status: Weight bearing as tolerated Call your doctor if your incision/area has: Continuous Slow Oozing, Sudden Increased Bleeding, Increased Pain/ Swelling, Increased Redness, Foul Smelling Discharge, Swelling at the incision site Call your doctor if you observe: Fever of 101 or Higher, Coldness, Increased Pain, Numbness or Tingling, Change in Color, Inability to urinate, Inability to have a bowel movement, Using more than one pad per hour, Shortness of breath, Dizziness, Fainting spells, Swelling in the ankles, Chest pain, Prolonged hiccoughing, Increased palpitations (irregular heartbeat), Calf discomfort, Uncontrolled pain Suture Line Care: Avoid Pulling/Pushing, Avoid Pinching/Bending Change Dressing in (Days):: 5 Remove Dressing in (days):: 5 Cleanse incision/area with: Soap AND Water Additional Dressing/Incision Instructions:: Remove dressing in 5 days. May shower at this time. Do not submerge wound. Replace Andrzej wrap as needed to protect wound. Wash hands prior to touching wound. Allergies/Adverse Reactions: Allergies ciprofloxacin [From Cipro] Allergy (Verified 05/16/17 13:03) Unknown escitalopram oxalate [From Lexapro] Allergy (Verified 05/16/17 13:03) Unknown heparin Allergy (Verified 05/16/17 13:03) Unknown mupirocin [From Bactroban] Allergy (Verified 05/16/17 13:03) Unknown trazodone Allergy (Verified 05/16/17 13:03) Unknown adhesive tape Adverse Reaction (Verified 05/16/17 13:03) Other Medications to take at Discharge ALPRAZolam [Xanax] 1 mg PO BID 08/25/15 Clopidogrel Bisulfate [Plavix] 75 mg PO QHS 08/25/15 Ibuprofen [Motrin] 600 mg PO Q8 08/25/15 Lisinopril [Zestril] 10 mg PO BID 08/25/15 Sertraline HCl [Zoloft] 50 mg PO DAILY 08/25/15 Atorvastatin Calcium [Lipitor] 40 mg PO QHS 01/27/16 L.acidoph,Paracasei, B.lactis [Probiotic] 1 ea PO DAILY 01/27/16 Pantoprazole Sodium [Protonix] 40 mg PO DAILY 01/27/16 Pramipexole Di-HCl [Mirapex ER] 2.25 mg PO QHS 02/23/17 tramadol 50 mg tablet 50 mg PO Q6H 06/06/17 Amlodipine Besylate [Norvasc] 10 mg PO QDAY 06/20/17 Aspirin E.C. [Ecotrin] 325 mg PO BID #30 tab 06/21/17 Docusate Sodium [Colace] 100 mg PO BID PRN PRN #30 cap 06/21/17 Famotidine [Pepcid] 20 mg PO BID #60 tab 06/21/17 Oxycodone HCl/Acetaminophen [Percocet 5/325] 1 - 2 tablet PO Q4H PRN PRN #60 tablet 06/21/17 ProMETHAzine [Phenergan] 25 mg PO Q4H PRN PRN #10 tab 06/21/17 The following prescriptions were given: Oxycodone HCl/Acetaminophen [Percocet 5/325] 1 - 2 tablet PO Q4H PRN PRN #60 tablet PRN Reason: Pain ProMETHAzine [Phenergan] 25 mg PO Q4H PRN PRN #10 tab PRN Reason: Nausea Docusate Sodium [Colace] 100 mg PO BID PRN PRN #30 cap PRN Reason: Constipation Aspirin E.C. [Ecotrin] 325 mg PO BID #30 tab Famotidine [Pepcid] 20 mg PO BID #60 tab Primary Care Physician: Sudheer Lion MD [Primary Care Provider] - Please Follow Up With: Martir Chua DO When: call [facility] for appt for 2 weeks Proposed Discharge Date: 06/22/17 06/22/17918 <Electronically signed by Martir Chua DO> Date Martir Chua DO CC: Yousif Gunter; Sudheer Lion MD CBC-COMPLETE BLOOD CNT Collected: 06/22/2017 Status: F Source: [place]ANC[place] NO DIFF 8:20 AM [facility] REPOSITORY TYPE CODE TESTS RESULT OUT OF RANGE REFERENCE UNITS LAB L100.1000 4.4-11.0 K/mm3 Normal WBC 9.6 LAB L100.1200 4.2-5.4 M/mm3 Low RBC 3.48 LAB L100.1300 12.0-15.0 g/dl Low HGB 9.5 LAB L100.1400 37-47 % Low HCT 30.1 LAB L100.1500 81-99 fL Normal MCV 86.5 LAB L100.1600 27.0-32.0 pg Normal MCH 27.3 LAB L100.1700 32-36 g/gl Low MCHC 31.6 LAB L100.1810 11.6-14.6 % Normal RDW CV 14.6 LAB L100.1820 35.1-43.9 fl High RDW SD 44.0 LAB L100.1900 150-450 K/mm3 Normal PLT 333 LAB L100.2000 6.2-12.0 fl Normal MPV 9.9 Performed By: #### L100.0500 #### [facility] [address] [place], [address] BASIC METABOLIC Collected: 06/22/2017 Status: F Source: FRANCY PROFILE (BMP) 8:20 AM [facility] REPOSITORY TYPE CODE TESTS RESULT OUT OF RANGE REFERENCE UNITS LAB L501.0100 74-106 mg/dL High GLU 159 Result Comment: Fasting Glucose result greater than or equal to 126 mg/dL suggests DIABETES MELLITUS per A.D.A. criteria. Please note revised GLUCOSE reference range effective 2017. LAB L501.1000 7-18 mg/dL Normal BUN 14 LAB L501.1100 0.55-1.02 mg/dL Normal CREAT,SERUM 0.91 Result Comment: The validity of the calculated GFR AND GFRAA in patients over 70 years has not been determined. Clinical correlation is essential. LAB L501.1110 >60 mL/min Normal EST GFR 66 Result Comment: Non- GFR Calc LAB L501.1115 >60 mL/min Normal EST GFR - AA 80 Result Comment: GFR Calc LAB L501.1255 ml/min Normal Estimated CRCL 50.05 LAB L501.1300 10-20 RATIO Normal BUN/CRE 15.4 LAB L501.2200 8.5-10 mg/dL Normal .1 CA 8.7 LAB L501.5300 136-14 mmol/L Normal 5 NA 137 LAB L501.5600 3.5-5. mmol/L Normal 1 K 3.8 LAB L501.5900 98-107 mmol/L Normal CL 104 LAB L501.6100 21.0-3 mmol/L Normal 2.0 CO2 25.0 LAB L501.6200 5-15 Normal GAP 8 Performed By: #### L500.2500 #### [facility] [address] [place], [address] CBC-COMPLETE BLOOD CNT Collected: 06/21/2017 Status: F Source: FRANCY NO DIFF 5:30 AM [facility] REPOSITORY TYPE CODE TESTS RESULT OUT OF RANGE REFERENCE UNITS LAB L100.1000 4.4-11.0 K/mm3 Normal WBC 8.7 LAB L100.1200 4.2-5.4 M/mm3 Low RBC 3.46 LAB L100.1300 12.0-15.0 g/dl Low HGB 9.5 LAB L100.1400 37-47 % Low HCT 29.8 LAB L100.1500 81-99 fL Normal MCV 86.1 LAB L100.1600 27.0-32.0 pg Normal MCH 27.5 LAB L100.1700 32-36 g/gl Low MCHC 31.9 LAB L100.1810 11.6-14.6 % Normal RDW CV 14.3 LAB L100.1820 35.1-43.9 fl Normal RDW SD 43.3 LAB L100.1900 150-450 K/mm3 Normal PLT 284 LAB L100.2000 6.2-12.0 fl Normal MPV 10.1 Performed By: #### L100.0500 #### [facility] [address] [place], [address] BASIC METABOLIC Collected: 06/21/2017 Status: F Source: [place] PROFILE ([facility]) 5:30 AM [facility] REPOSITORY TYPE CODE TESTS RESULT OUT OF RANGE REFERENCE UNITS LAB L501.0100 74-106 mg/dL High GLU 159 Result Comment: Fasting Glucose result greater than or equal to 126 mg/dL suggests DIABETES MELLITUS per A.D.A. criteria. Please note revised GLUCOSE reference range effective 2017. LAB L501.1000 7-18 mg/dL Normal BUN 14 LAB L501.1100 0.55-1.02 mg/dL Normal CREAT,SERUM 0.92 Result Comment: The validity of the calculated GFR AND GFRAA in patients over 70 years has not been determined. Clinical correlation is essential. LAB L501.1110 >60 mL/min Normal EST GFR 65 Result Comment: Non- GFR Calc LAB L501.1115 >60 mL/min Normal EST GFR - AA 79 Result Comment: GFR Calc LAB L501.1255 ml/min Normal Estimated CRCL 49.50 LAB L501.1300 10-20 RATIO Normal BUN/CRE 15.2 LAB L501.2200 8.5-10 mg/dL Normal .1 CA 8.7 LAB L501.5300 136-14 mmol/L Normal 5 NA 137 LAB L501.5600 3.5-5. mmol/L Normal 1 K 3.5 LAB L501.5900 98-107 mmol/L Normal CL 103 LAB L501.6100 21.0-3 mmol/L Normal 2.0 CO2 25.0 LAB L501.6200 5-15 Normal GAP 9 Performed By: #### L500.2500 #### [facility] [address] [place], [address] HEMOGLOBIN A1C Collected: 06/21/2017 Status: F Source: [place] 5:30 AM [facility] REPOSITORY TYPE CODE TESTS RESULT OUT OF RANGE REFERENCE UNITS LAB L501.9985 4.2-6.3 % High HGB A1C 7.1 Performed By: #### L501.9985 #### [facility] [address] [facility] [place], [address] CONSULTATION Observed: 06/20/2017 Status: F Source: [place] 3:30 PM [facility] REPOSITORY [facility] Medical Records Department [address] [place] [address] Consultation 06/20/17 1517 MR#: [id number] Acct: [id number] Name: MACKENZIE AKHTAR Rep #: [id number] : 1955 61 From: Yousif Gunter MD PCP: Sudheer Lion MD Status: ADM IN Location: [place] [id number] Problem List (1) Coronary artery disease Status: Chronic (2) Hyperlipidemia Status: Chronic (3) Hypertension Status: Chronic (4) Morbid obesity Status: Chronic (5) Right sided cerebral infarction Status: Chronic Reason for Consult Date of Consultation: 06/20/17 Reason for Consultation: Elevated blood pressure and postoperative medical management. History of Present Illness: The patient is a 61 year old F with past medical history as mentioned above who was admitted on June 19, 2017 for elective right total knee replacement for right knee osteoarthritis and I am seeing this patient in consultation for postoperative medical management and highly elevated blood pressure. Patient seen and examined. She complained of right knee pain, 7 out of 10 in severity, not radiating and her current pain medication regimen is not controlling her pain. She is on she was started on MS Contin, IV morphine and OxyIR for pain and according to nursing staff, she has been sleepy and lethargic most of her time. Even though, she has been complaining of severe right knee pain. She denied headache, blurry vision or change in her speech. She denied chest pain or shortness of breath. Denied abdominal pain, nausea or vomiting. She denied numbness or tingling. She has a history of CAD status post stents and she is on Plavix, statins and lisinopril. She had a history of hypertension and at this time, her blood pressure is highly elevated. She is on lisinopril and she is not sure if she is still on Norvasc or not. She has a history of depression and anxiety with history of suicide attempt in the past and she has been on Zoloft and Xanax. At this time, blood pressure is 244/95. Order given to give IV hydrazine 10 mg every 8 hours as needed for systolic more than 160. I requested the nursing staff to update her medication list by contacting her pharmacy and see if she is still on Norvasc. Routine blood work from today reviewed, revealed chronic anemia with stable hemoglobin, otherwise normal. Past Medical History Past Medical History (Chronic Problems): Chronic Problems (Last Reviewed 06/06/17 @ 10:31 by Judith Mai) Coronary artery disease (Chronic) Morbid obesity (Chronic) Right sided cerebral infarction (Chronic) Hypertension (Chronic) Hyperlipidemia (Chronic) Allergies ciprofloxacin [From Cipro] Allergy (Verified 05/16/17 13:03) Unknown escitalopram oxalate [From Lexapro] Allergy (Verified 05/16/17 13:03) Unknown heparin Allergy (Verified 05/16/17 13:03) Unknown mupirocin [From Bactroban] Allergy (Verified 05/16/17 13:03) Unknown trazodone Allergy (Verified 05/16/17 13:03) Unknown adhesive tape Adverse Reaction (Verified 05/16/17 13:03) Other Home Medications: Ambulatory Orders Medication Instructions Recorded Surgical History: cholecystectomy, hysterectomy, tonsillectomy Psychiatric History: Anxiety, Depression [employer] History: dysfunctional 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 Dyspnea, Syncope Respiratory: Denies: Cough, Hemoptysis, Pleuritic Pain, Shortness of Breath, Sputum production, Wheezing Gastrointestinal: Denies: Abdominal Pain, Constipation, Diarrhea, Nausea, Vomiting Genitourinary: Denies: Dysuria, Frequency, Hematuria Musculoskeletal: Reports: Joint Pain. Denies: Arm Pain, Back Pain Skin: Denies: Dryness, Rash Neurological: Denies: Balance problems, Double vision, Change in Speech, Slurred speech, Confusion, Headaches, Incoordination, Numbness Psychiatric: Reports: Anxiety, Depression Endocrine: Denies: Change in Body Habitus, Polydipsia - Physical Exam General: Alert, Cooperative, No apparent distress, - - Sleepy, lethargic but easily arousable. HEENT: Atraumatic, PERRLA, EOMI Oral: Moist Mucosa, No Gingival or Mucosal Lesions/ Ulcerations Neck: Supple, No JVD, Negative Carotid Bruits, Trachea Midline, Thyroid Normal Size and Texture Lungs: Clear to auscultation, No rhonchi, No wheeze, No rales, Diminished Cardiovascular: Regular rate, Regular Rhythm, Normal S1, Normal S2, No murmurs, PMI Normal Abdomen: Bowel Sounds Present, Soft, Non Tender, Non-Distended, No Hepato-splenomegaly, Obese Extremities: No clubbing, No cyanosis, No edema Skin: No rashes, No breakdown Lymphatic: No Cervical, Supraclavicular, or Inguinal Adenopathy Neurological: Cranial nerves II-XII grossly intact, Motor Exam 5/5 strength throughout Psych/Mental Status: Normal Affect, Appropriate Vital Signs Temp Pulse Resp BP Pulse Ox 98.5 F 78 16 244/95 H 92 06/20/17 11:29 06/20/17 11:29 06/20/17 11:29 06/20/17 13:32 06/20/17 11:29 Oxygen Flow Rate (L/min) 2 Oxygen Delivery Method Room Air Weight: 263 lb 0.183 oz Body Mass Index (BMI) 47.5 Finger Stick Blood Glucose 97 Intake and Output for Last 24 Hours Intake Total 1200 / 1200 1458 / 1458 Output Total 1125 / 1125 Balance 1200 / 1200 333 / 333 Laboratory Tests Past 24 Hrs WBC 8.2 RBC 3.54 L Hgb 9.6 L Hct 30.7 L Clinical Impression(s) from Imaging Studies Knee X-Ray 06/19/17 09:10 IMPRESSION: Total knee replacement. There is good alignment. Postoperative soft tissue changes. Electronically Signed: Boone Castro MD at 12:54 EDT Tel [phone], Service support , Assessment/Plan This is a 61 years old female patient admitted for elective right total knee replacement for right knee osteoarthritis and I am seeing this patient in consultation for postoperative medical management and highly elevated blood pressure. #1 status post right total knee replacement: Postoperative day 1. Patient was on IV morphine as needed, MS Contin twice daily and OxyIR her pain is not well controlled. Nursing staff reported that patient is lethargic as of her time. MS Contin was discontinued. At this time, she is on Tyleno and OxyIR as needed. Blood pressure is elevated, other vital signs are stable. Routine blood work reviewed as above, revealed anemia, otherwise unremarkable. Orthopedic surgery is managing. #2 uncontrolled hypertension: Maximum blood pressure was 244/95. This is likely because of uncontrolled right knee pain. Patient is on lisinopril twice daily. She is not sure if she is still on Norvasc, plan to contact her pharmacy and verify. Plan to start IV hydralazine as needed, would recommend pain control of her right knee pain. #3 CAD status post stents: Stable, no chest pain or shortness of breath. Continue aspirin, statins and lisinopril. #4 hyperlipidemia: Continue statins. #5 anxiety/depression: Continue Zoloft and Xanax. #6 DVT prophylaxis: She is on full dose aspirin twice daily This note was generated with [employer] dictation software. It may contain incorrect words, spelling, and punctuation that were not noted in checking the note before signing. Code Visit Inpatient E AND M: [id number] Init Hosp L2 06/20/17 8890 <Electronically signed by Yousif Gunter MD> Date Yousif Gunter MD Cosigner Signature (if applicable): Date CC: Yousif Gunter; Sudheer Lion MD Signed CBC-COMPLETE BLOOD CNT Collected: 06/20/2017 Status: F Source: [place]ANCY NO DIFF 5:06 AM [facility] REPOSITORY TYPE CODE TESTS RESULT OUT OF RANGE REFERENCE UNITS LAB L100.1000 4.4-11.0 K/mm3 Normal WBC 8.2 LAB L100.1200 4.2-5.4 M/mm3 Low RBC 3.54 LAB L100.1300 12.0-15.0 g/dl Low HGB 9.6 LAB L100.1400 37-47 % Low HCT 30.7 LAB L100.1500 81-99 fL Normal MCV 86.7 LAB L100.1600 27.0-32.0 pg Normal MCH 27.1 LAB L100.1700 32-36 g/gl Low MCHC 31.3 LAB L100.1810 11.6-14.6 % Normal RDW CV 14.2 LAB L100.1820 35.1-43.9 fl Normal RDW SD 43.5 LAB L100.1900 150-450 K/mm3 Normal PLT 255 LAB L100.2000 6.2-12.0 fl Normal MPV 10.0 Performed By: #### L100.0500 #### [facility] [place] [address], [address] BASIC METABOLIC Collected: 06/20/2017 Status: F Source: FRANCY PROFILE (BMP) 5:06 AM [facility] REPOSITORY TYPE CODE TESTS RESULT OUT OF RANGE REFERENCE UNITS LAB L501.0100 74-106 mg/dL High GLU 158 Result Comment: Fasting Glucose result greater than or equal to 126 mg/dL suggests DIABETES MELLITUS per A.D.A. criteria. Please note revised GLUCOSE reference range effective 2017. LAB L501.1000 7-18 mg/dL Normal BUN 17 LAB L501.1100 0.55-1.02 mg/dL High CREAT,SERUM 1.12 Result Comment: The validity of the calculated GFR AND GFRAA in patients over 70 years has not been determined. Clinical correlation is essential. LAB L501.1110 >60 mL/min Low EST GFR 52 Result Comment: Non- GFR Calc LAB L501.1115 >60 mL/min Normal EST GFR - AA 63 Result Comment: GFR Calc LAB L501.1255 ml/min Normal Estimated CRCL 40.66 LAB L501.1300 10-20 RATIO Normal BUN/CRE 15.2 LAB L501.2200 8.5-10 mg/dL Low .1 CA 8.4 LAB L501.5300 136-14 mmol/L Normal 5 NA 139 LAB L501.5600 3.5-5. mmol/L Normal 1 K 4.1 LAB L501.5900 98-107 mmol/L Normal CL 105 LAB L501.6100 21.0-3 mmol/L Normal 2.0 CO2 26.0 LAB L501.6200 5-15 Normal GAP 8 Performed By: #### L500.2500 #### [facility] [address] [facility] [place], [address] OPERATIVE REPORT Observed: 06/19/2017 Status: F Source: [place] 8:54 AM [facility] REPOSITORY [facility] Medical Records Department [address] [place] [address] Operative Report 06/19/17 0847 MR#: [id number] Acct: [id number] Name: MACKENZIE AKHTAR Rep #: [id number] : 1955 61 From: Martir Chua DO PCP: Sudheer Lion MD Status: ADM IN Y Location: [facility] [id number] Report of Operation Date of Procedure: 06/19/17 Pre-Operative Diagnosis: Right knee osteoarthritis, history of CVA Post-Operative Diagnosis: Same as above Surgery/Procedure Performed:: Right total knee arthroplasty. Description of Surgical Findings:: 61-year-old female with recalcitrant right knee pain and osteoarthritis and with a history of cva to that ipsilateral side. Having failed conservative measures to include NSAIDs activity modifications physical therapy and injections. Patient elected for operative intervention. She was up to counseled consented for the aforementioned procedure. She is met in the holding area where the right lower extremity was marked and identified by the with surgeon. Patient was taken the operating room in satisfactory condition with somewhat to place to identify patient operative procedure and limb. Patient received 1 g of vancomycin secondary to a positive MRSA skin test and 1 g of TXA. She had a well-placed tourniquet the right proximal thigh. She was then prepped and draped in usual fashion. Patient showed no obvious flexion contracture but was in varus with a correctable deformity. Patient has somewhat of a large pannus which causes her leg externally rotated. Right lower extremity was elevated Esmarch used for exsanguination and tourniquet was increased to 250 mmHg for roughly 60 minutes. Patient is standard midline incision made 2 fingerbreadths above the patella down to the tibial tubercle. Full-thickness dissection was undertaken. She had then underwent a standard medial parapatellar approach. Patient had a large return of an effusion. Her superior synovial flap had some discoloration concerning for PVNS so ice did of synovial biopsy at that time we will send down for evaluation. Standard synovectomy was undertaken. Anterior release and fat pad resection was then performed. We then performed a standard anterior medial release moving posterior medially to correct the valgus deformity. At that point time we entered into the intramedullary canal to perform our distal femoral cut. We had a 6 valgus cut with an 8 mm distal femoral resection. Sizing guide was then placed. Patient sized to a size 3. Standard cutting block was placed and cuts performed without difficulty. We then turned our attention to the tibia. Tibial guide was set for a CR component with 3 of slope. Standard cuts were performed taking 2 mm off the medial side. Patient was then brought to full extension remnant menisci were resected. The posterior medial and posterior lateral geniculate vessels were then cauterized. Patient sized to a size 9 and 11 with no flexion extension gaps appreciated and good mechanical alignment. At that point time the trial femoral component was placed in anticipation of a press-fit component secondary to good bone quality. We then placed a size 3 tibial tray setting and appropriate rotation. It was then fixed using standard technique we trialed to a size 11. Had good overall mechanical alignment. Trial component was removed femoral component keel size were introduced. We then placed a keel punch the tibia and secondary punch in anticipation again of a press-fit component. We then turned our attention to the patella. The patella diameter was 22 mm. We took off 9. Patient sized with 32 patella button. Standard holes were drilled in anticipation of performing a cemented patella component. The wound was then copiously irrigated remove any excess debris. Trial our final components were brought from the back table. Cement was pared to the back table as well. Subsequently press-fit the femur with good fit. Seated our tibial tray and placed a 11 mm Pham. In [place] turned our attention to the patella the patella patella was then cemented and allowed to cure using standard technique. Upon completion we checked our range of motion with a 13 mm poly-trial with good patellar tracking. At that point time the wound was copious irrigated additional time remove any excess debris and cement. We then introduced a 13 mm CS Pham. This was done using standard technique. With excellent range of motion mechanical stability there was no flexion or extension gaps appreciated. At that point time the wound was copious irrigated additional time and then closed in layer technique with the distal two thirds closed with the knee in flexion of about 30 using #1 Vicryl in [id number] technique. The proximal portion of the quad incision was closed with again with #1 Vicryl using [id number] and full extension. Soft tissues reapproximated 2-0 Vicryl running subicular Monocryl and Dermabond. I was scrubbed and available time during our procedure. We had no drains or complications. Implants included [place] triathlon press-fit 3 femur 3 tibia 11 CS Pham and a 32 patella button. Patient be admitted floor for 24 hours of IV antibiotics appropriate IV and p.o. pain medication and DVT prophylaxis to include 325 p.o. twice daily of aspirin with appropriate GI prophylaxis and then we will substitute convert the patient back to Plavix per recommendation of medicine. Any major issues please contact me. chief ultrasound technologist: Deyvi Uriarte Type of Anesthesia:: Spinal Specimen's removed: Bone cuts, synovial biopsy-possible PVNS Estimated Blood Loss (mL): 50 Grafts/Implants Used: Striker triathlon press-fit 3, 3, 13 CS, 32 - Complications None - Admit VTE Documentation VTE Present on Admission: No VTE Mechan Device Prophylaxis: SCD's, Knee High FRANCI Hose VTE Pharm Prophylaxis ordered?: Yes 06/19/17 4604 <Electronically signed by Martir Lexus DO> Date Martir Chua DO CC: Martir Chua DO; Sudheer Lion MD Signed TOTAL KNEE REPLACEMENT Observed: 06/19/2017 Status: F Source: FRANCY 7:15 AM [facility] REPOSITORY Patient: MACKENZIE AKHTAR : 1955 (61/F) Acct Num: [id number] Phys: Kaity Garrett Unit Num: [id number] Loc: MS3 [id number] Specimen: [id number] Received: 06/19/17 - 1012 Spec Type: TOTAL KNEE TISSUES TISSUES: A. Knee, NOS B. Knee, NOS COMMENT B. Changes consistent with pigmented villonodular synovitis are not seen. GROSS DESCRIPTION A - Received is one container designated right knee bone and soft tissue. The specimen consists of multiple fragments of thomas-yellow bone measuring in aggregate 15 x 11 x 1.5 cm. Also in the specimen container are multiple fragments of yellow-white soft tissue measuring in aggregate 11 x 6 x 2 cm. A number of bony fragments contain articular surfaces consistent with tibial plateau and femoral condyle and displaying prominent osteophyte formation, eburnation, and bone erosion. Washer Assembler sections are submitted in two cassettes as follows: 1 - bone after decalcification, 2 - soft tissue. B - Received in fixative is one container labeled with the patient's name and designated right knee soft tissue. The specimen consists of an elongated fragment of pink-yellow soft tissue measuring 6 x 2.5 x 1.5 cm. Serial sections do not reveal mass lesions. Washer Assembler sections are submitted in one cassette. / AM:marti 06/19/17 TC:5 CPT: 98361 x2, 01857 HEADER OPERATION: Total knee replacement PRE-OP DIAGNOSIS: Right knee osteoarthritis TISSUE SUBMITTED: A Right knee bone and soft tissue, B Right knee soft tissue, PVNS, for biopsy MICROSCOPIC DESCRIPTION Slides are reviewed. MICROSCOPIC DIAGNOSIS A. Right knee bone and soft tissue, total knee replacement: Pieces of bone with degenerative osteoarthritic changes. Fibroadipose tissue, fibroconnective tissue and reactive synovial tissue. B. Right knee soft tissue: A piece of synovial tissue with mild papillary hyperplasia, chronic inflammation and reactive changes. See comment. SJ:marti 06/22/17 Signed Munir Reese 06/22/17 <signature on file> Performed By: #### PKNEE #### [facility] [address] [place], [address] KNEE 1 OR 2 VIEWS Observed: 06/19/2017 Status: F Source: [place] 6:59 AM [facility] REPOSITORY [facility] Imaging Services [address] [place] [address] Knee 1 or 2 Views MR#: [id number] Acct: [id number] Name: MACKENZIE AKHTAR Rep #: [id number] : 1955 F 61 From: Boone Castro MD PCP: Sudheer Lion MD Status: ADM IN Study: Knee 1 or 2 Views Date of Exam: 06/19/17 Exam# [id number] Ordering Dr: Martir Chua DO STUDY: X-RAY - RIGHT KNEE REASON FOR EXAM: Female, 61 years old. Total knee replacement. TECHNIQUE: AP and lateral view(s) of the knee. COMPARISON: Comparison is made with prior study dated April 18, 2017. FINDINGS: Normal visualized distal femur. Normal visualized proximal tibia and fibula. Normal proximal tibiofibular articulation. The patient is status post total knee replacement. There is good alignment. Postoperative soft tissue changes. RAD/Knee 1 or 2 Views IMPRESSION: Total knee replacement. There is good alignment. Postoperative soft tissue changes. Electronically Signed: Boone Castro MD at 12:54 EDT Tel [phone], Service support , CC: Martir Chua DO; Sudheer Lion MD Manager Enrollment: Signed ORTHOPEDIC VISIT Observed: 06/11/2017 Status: F Source: [place] REPORT 7:55 AM [facility] REPOSITORY [facility] Orthopaedics AND Sports Medicine [address] [place] [address] 5 [place] [address] OFFICE VISIT Date of Service: 06/06/17 MR#: [id number] Acct: [id number] Name: MACKENZIE AKHTAR Rep #: [id number] : 1955 Provider: Martir Chua DO Age/Sex: 61/F Location: [facility] [place] Status: Signed Intake Intake Visit Reasons: RIGHT KNEE Accompanied by: Is patient in pain?: Yes Pain scale (1-10): 8 Allergies ciprofloxacin [From Cipro] Allergy (Verified 05/16/17 13:03) Unknown escitalopram oxalate [From Lexapro] Allergy (Verified 05/16/17 13:03) Unknown heparin Allergy (Verified 05/16/17 13:03) Unknown mupirocin [From Bactroban] Allergy (Verified 05/16/17 13:03) Unknown trazodone Allergy (Verified 05/16/17 13:03) Unknown adhesive tape Adverse Reaction (Verified 05/16/17 13:03) Other Medications ALPRAZolam [Xanax] 1 mg PO BID 08/25/15 [History Confirmed 06/06/17] Clopidogrel Bisulfate [Plavix] 75 mg PO QHS 08/25/15 [History Confirmed 06/06/17] Ibuprofen [Motrin] 600 mg PO Q8 08/25/15 [History Confirmed 06/06/17] Lisinopril [Zestril] 10 mg PO BID 08/25/15 [History Confirmed 06/06/17] Sertraline HCl [Zoloft] 50 mg PO DAILY 08/25/15 [History Confirmed 06/06/17] Atorvastatin Calcium [Lipitor] 40 mg PO QHS 01/27/16 [History Confirmed 06/06/17] L.acidoph,Paracasei, B.lactis [Probiotic] 1 ea PO DAILY 01/27/16 [History Confirmed 06/06/17] Pantoprazole Sodium [Protonix] 40 mg PO DAILY 01/27/16 [History Confirmed 06/06/17] Pramipexole Di-HCl [Mirapex ER] 2.25 mg PO QHS 02/23/17 [History Confirmed 06/06/17] amlodipine 10 mg tablet 10 mg PO QDAY #90 tab 05/21/17 [Rx Confirmed 06/06/17] tramadol 50 mg tablet 50 mg PO Q6H 06/06/17 [History Confirmed 06/06/17] PFSH Medical History CVA (cerebral vascular accident) (Chronic) Heart disease (Chronic) Surgical History History of heart artery stent (Acute) gallbladder removal (Acute) Social History Smoking Status: Never smoker HPI RIGHT KNEE: Details: MACKENZIE AKHTAR is a 61 year old F here today to sign surgery consent for right TKA. She continues to complain of medial knee pain with some pain below knee cap. She does have pains shooting up into her thigh when she walks backwards. Frequently knee pops. Constant swelling. No tingling. Does have some numbness at her holt when she drives. She continues to take Tramadol for pain. ROS Const Reports system reviewed and no additional complaints, except as docu Eyes Reports system reviewed and no additional complaints, except as docu ENT Reports system reviewed and no additional complaints, except as docu Card Reports system reviewed and no additional complaints, except as docu Resp Reports system reviewed and no additional complaints, except as docu Reports system reviewed and no additional complaints, except as docu Musc Reports joint pain, Reports joint swelling, Reports numbness Skin/Breast Reports system reviewed and no additional complaints, except as docu Neuro Yes numbness Psych Reports system reviewed and no additional complaints, except as docu Endo Reports system reviewed and no additional complaints, except as docu Yoandy/Lymph Reports system reviewed and no additional complaints, except as docu Aller/Immun Reports system reviewed and no additional complaints, except as docu Ortho Exam Right Knee Skin/Wound: Yes CDI Contralateral Normal: Yes Swelling: Yes Homans Sign: No 1+: Effusion Knee ROM: Yes ROM-Flexion 0-140 (0-115) Examination: Yes Med jt line tenderness, Yes Lat jt line tenderness, Yes TTP inf pole patella, Yes Pain with flexion, Yes Crepitus, Yes Pain with extention Quad Atrophy: No Stability: NML: Anterior Drawer, NML: Coy, NML: Posterior Drawer, NML: Valgus 0, NML: Valgus 30, NML: Varus 0, NML: Varus 30, NML: Dial 90, NML: Dial 30 Popliteal Adenopathy: No Patella Translation: 1 Apprehension with Lateral Translation: No Patellar Tilt Normal: No Patella Grind: Yes KNEE: General: well developed, well nourished in no acute distress. Head: normocephalic and atraumatic Pulses: pulses normal in all 4 extremities. Neurologic: no focal deficits, cranial nerves II-XII grossly intact with normal sensation, reflexed, coordination, muscle strength and tone. Axillary Nodes: no significant adenopathy. Psych: alert and cooperative, normal mood and affect, normal attention span and concentration. Heart regular S1-S2 lungs crackles bilaterally abdomen is soft nontender nondistended no gross hepatosplenomegaly. Right knee examination shows continued knee pain across medial joint lines. Range of motion limited by pain. Some mild weakness that side secondary to being mildly involved her stroke formation. No obvious calf pain or popliteal masses. His radiographs of performed shows patient have osteoarthritis. Left Knee Patella Translation: 1 Assessment AND Plan Problems 1. Chronic pain of right knee M25.561; G89.29 2. Primary osteoarthritis of right knee M17.11 3. Cerebrovascular accident (CVA), unspecified mechanism I63.9 Plan Assessment: Right knee osteoarthritis and right knee pain history of cerebrovascular accident with associated weakness of the ipsilateral side. Plan: At this point time patient has been medically cleared and she is taking care of her dentition issues. Patient is here to be signed a consent to proceed with right total knee arthroplasty. Reviewed the pre-operative plans with the patient. Risks and benefits of the procedure were fully explained, including but not limited to infection, neurovascular injury, continued pain, arthritis, stiffness, need for further surgery, re-injury, DVT, PE, general risks of anesthesia, and loss of limb or life. The patient understands all the risks and does wish to proceed with written consent. We will proceed with right total knee arthroplasty at this time. Any major issues please contact. Coding Level of Care Code Off vis,est,level 4 Diagnoses Chronic pain of right knee M25.561; G89.29 Chronicity: chronic Primary osteoarthritis of right knee M17.11 Osteoarthritis type: primary Cerebrovascular accident (CVA), unspecified mechanism I63.9 CVA mechanism: unspecified 06/11/17 0755 <Electronically signed by Martir Chua DO> Date Martir Chua DO Cosigner Signature: Date (if applicable) CC: Observed: 06/06/2017 Status: F Source: [place] CULTURE, URINE 9:30 AM [facility] REPOSITORY Urine Culture Probable skin contaminants. ORGANISM 1: Mixed Gram Positive Organisms [place] Count >100,000 Performed By: #### M100.0650 #### [facility] [address] [place], [address] 12 LEAD ELECTROCARDIOGRAM Observed: 05/18/2017 Status: F Source: FRANCY 2:03 PM [facility] REPOSITORY [facility] Cardiovascular Services [address] [place] [address] 12 Lead EKG 05/17/17 1232 MR#: [id number] Acct: [id number] Name: MACKENZIE AKHTAR Rep #: [id number] : 1955 61 From: Markus Bowen MD Attending Dr: Martir Chua DO Status: PRE IN Ordering Dr: Martir Chua DO Date: 05/17/17 Location: [facility] [place] Sex: F C Admitted: Test Reason : PREOP Blood Pressure : / mmHG Vent. Rate : 067 BPM Atrial Rate : 067 BPM P-R Int : 148 ms QRS Dur : 088 ms QT Int : 410 ms P-R-T Axes : 041 032 044 degrees QTc Int : 433 ms Normal sinus rhythm with sinus arrhythmia Normal ECG Confirmed by MARKUS BOWEN MD ([id number]), telegraph editor HUE CASANOVA ([id number]) on 05/18/2017 2:03:02 PM Referred By: LEXUS Confirmed By:MARKUS BOWEN MD 05/18/17 1403 Date Markus Bowen MD CC: Martir Chua DO; Sudheer Lion MD Signed CBC-COMPLETE BLOOD CNT Collected: 05/17/2017 Status: F Source: FRANCY NO DIFF 12:05 PM [facility] REPOSITORY TYPE CODE TESTS RESULT OUT OF RANGE REFERENCE UNITS LAB L100.1000 4.4-11.0 K/mm3 Normal WBC 7.3 LAB L100.1200 4.2-5.4 M/mm3 Low RBC 3.93 LAB L100.1300 12.0-15.0 g/dl Low HGB 11.0 LAB L100.1400 37-47 % Low HCT 34.1 LAB L100.1500 81-99 fL Normal MCV 86.8 LAB L100.1600 27.0-32.0 pg Normal MCH 28.0 LAB L100.1700 32-36 g/gl Normal MCHC 32.3 LAB L100.1810 11.6-14.6 % Normal RDW CV 14.2 LAB L100.1820 35.1-43.9 fl Normal RDW SD 43.8 LAB L100.1900 150-450 K/mm3 Normal PLT 289 LAB L100.2000 6.2-12.0 fl Normal MPV 9.8 Performed By: #### L100.0500 #### [facility] [address] [place], [address] BASIC METABOLIC Collected: 05/17/2017 Status: F Source: FRANCY PROFILE (BMP) 12:05 PM [facility] REPOSITORY TYPE CODE TESTS RESULT OUT OF RANGE REFERENCE UNITS LAB L501.0100 74-106 mg/dL Normal GLU 103 Result Comment: Fasting Glucose result from 100 to 125 mg/dL suggests IMPAIRED HOMEOSTASIS per A.D.A. criteria. Please note revised GLUCOSE reference range effective 2017. LAB L501.1000 7-18 mg/dL Normal BUN 13 LAB L501.1100 0.55-1.02 mg/dL Normal CREAT,SERUM 0.85 Result Comment: The validity of the calculated GFR AND GFRAA in patients over 70 years has not been determined. Clinical correlation is essential. LAB L501.1110 >60 mL/min Normal EST GFR 72 Result Comment: Non- GFR Calc LAB L501.1115 >60 mL/min Normal EST GFR - AA 87 Result Comment: GFR Calc LAB L501.1300 10-20 RATIO Normal BUN/CRE 15.3 LAB L501.2200 8.5-10.1 mg/dL CA Normal 9.2 LAB L501.5300 136-145 mmol/L NA Normal 139 LAB L501.5600 3.5-5.1 mmol/L K Normal 3.9 LAB L501.5900 98-107 mmol/L CL Normal 105 LAB L501.6100 21.0-32.0 mmol/L Normal CO2 25.0 LAB L501.6200 5-15 Normal GAP 9 Performed By: #### L500.2500 #### [facility] [address] [place], [address] Observed: 05/17/2017 Status: F Source: [place] MRSA/SAID SCREEN 12:05 PM [facility] REPOSITORY Copy of report sent to Infection Control Printer [id number] 05/18/17 1238 BLUCAS. RESULTS CALLED TO AYESHA 05/18/17 1240 Tala Mendenhall. REPORT READ BACK BY SAME. MRSA/SAID SCRN S. AUREUS S. aureus Positive MRSA MRSA Positive Performed By: #### M100.651 #### [facility] [address] [place], [address] ALLERGIES ALLERGIES DATE TYPE / CODE NAME / CODE REACTION SEVERITY SOURCE 04/29/2018 Drug escitalopram Unknown Unknown [place] Allergy/416 oxalate/[id number]( [facility] 791692([facility] ED CT) Repository 04/29/2018 Drug mupirocin/[id number] Unknown Unknown [place] Allergy/416 2(RXNORM) [facility] 402021([facility] ED CT) Repository 04/29/2018 Drug ciprofloxacin/F0060 Unknown Unknown [place] Allergy/416 68322(RXNORM) [facility] 554445([facility] ED CT) Repository 04/29/2018 Drug adhesive Other Unknown [place] Allergy/416 tape/[id number](RXN [facility] 849967([facility] ED CT) Repository 04/29/2018 Drug trazodone/[id number] Unknown Unknown [place] Allergy/416 0(RXNORM) [facility] 647582([facility] ED CT) Repository 04/29/2018 Drug heparin/[id number]( Unknown Unknown [place] Allergy/416 RXNORM) [facility] 598835([facility] ED CT) Repository ENCOUNTERS ENCOUNTERS ADMIT/DISCHARGE ACCOUNT ADMITTING ENCOUNTER LOCATION SOURCE NUMBER CLASS 04/30/2018 [id number] Ambulatory [place] 9 [facility] ing:MTLAB Repository 04/29/2018/ [id number] Ambulatory BMSBuilding:B [place] 9 [address] [facility] Repository 04/22/2018 [id number] Ambulatory BMSBuilding:W [place] 0 [facility] Repository 04/22/2018 [id number] Irena, Ambulatory [place] 6 [facility] ing:SDC Repository 04/10/2018 [id number] Ambulatory [place] 2 [facility] Hospital ing:OPBI Repository 02/21/2018 [id number] Ambulatory [place] 2 [facility] ing:LABSPEC Repository 02/19/2018 [id number] Ambulatory [place] 3 [facility] ing:MTLAB Repository 02/07/2018 [id number] Ambulatory [place] 3 [facility] ing:LABSPEC Repository 01/07/2018 [id number] Ambulatory [place] 2 [facility] Hospital ing:LABSPEC Repository 12/20/2017 [id number] Ambulatory [place] 1 [facility] ing:HPRAD Repository 12/20/2017/ [id number] Ambulatory BMSBuilding:B [place] 8 7 [facility] Repository 10/31/2017/ [id number] Ambulatory BMSBuilding:B [place] [address] [facility] Repository 10/29/2017 [id number] Ambulatory [place] 7 [facility] Hospital ing:MTLAB Repository 09/26/2017 [id number] Ambulatory [place] 2 [facility] ing:HPRAD Repository 09/26/2017/ [id number] Ambulatory BMSBuilding:B [place] 8 2 [facility] Repository 09/18/2017 [id number] Ambulatory [place] 4 [facility] ing:LABSPEC Repository 07/30/2017 [id number] Ambulatory [place] 3 [facility] ing:HPRAD Repository 07/30/2017/ [id number] Ambulatory BMSBuilding:B [place] 8 0 [facility] Repository 07/05/2017 [id number] Sementi, Ambulatory BMSBuilding:B [place] 4 [place] [facility] Repository 07/05/2017 [id number] [place], Ambulatory BMSBuilding:B [place] 8 [place] [facility] Repository 07/05/2017 [id number] Sementi, Ambulatory BMSBuilding:B [place] 4 [place] [facility] Repository 07/05/2017/ [id number] Sementi, Inpatient [place] 8 5 Ka[place] Encounter [facility] ing:GQ6Zmpf: Repository [id number]: 1 07/02/2017/ [id number] Ambulatory BMSBuilding:B [place] 8 3 [facility] Repository 06/29/2017/ [id number] Emergency [place] 8 4 [facility] ing:ED Repository 06/26/2017 [id number] Ambulatory BMSBuilding:B [place] 1 [facility] Repository 06/26/2017 [id number] Ambulatory [place] 1 [facility] ing:CVS Repository 06/25/2017/ [id number] Emergency [place] 8 9 [facility] ing:ED Repository 06/19/2017 [id number] Martir Chua Ambulatory BMSBuilding:B [place] 6 [facility] Repository 06/19/2017 [id number] Martir Chua Ambulatory BMSBuilding:B [place] 8 [facility] Repository 06/19/2017 [id number] Martir Chua Ambulatory BMSBuilding:B [place] 3 [facility] Repository 06/19/2017 [id number] Martir Chua Ambulatory BMSBuilding:B [place] 3 [facility] Repository 06/19/2017 [id number] Martir Chua Ambulatory BMSBuilding:B [place] 4 [facility] Repository 06/19/2017 [id number] Lexus Martir Ambulatory BMSBuilding:B [place] 2 [facility] Repository 06/19/2017 [id number] Martir Chua Ambulatory BMSBuilding:B [place] 3 [facility] Repository 06/19/2017/ [id number] Martir Chua Inpatient Fr[place] 8 4 Encounter [facility] ing:[id number]: Repository [id number]: 1 06/06/2017 [id number] Ambulatory [place] 6 [facility] ing:LABSPEC Repository 06/06/2017/ [id number] Ambulatory BMSBuilding:B [place] 8 5 [facility] Repository 06/04/2017 [id number] Ambulatory BMSBuilding:B [place] 6 [facility] Repository 05/17/2017 [id number] Ambulatory BMSBuilding:W [place] 0 [facility] Repository PAYERS PAYERS ENCOUNTER GUARANTOR PAYER SUBSCRIBER SOURCE 04/30/2018 HOANG [place] Primary LORILE D [place] [id number] N Insurance:[facility] GONSERDOB: Community [address] MEDICAREPolicy [id number] [place] Number: Repository [address]Qwu: 330 [id number] [phone] () Date:7136-58-06QQ [address] [place] [address] 70924TZ: 04/30/2018 Secondary NOT GIVENUNK [place] Insurance:SELF PAY [facility] Number: Effective Repository Date:2018-04-30 04/29/2018 MACKENZIE D Primary LORILE D [place] [id number] N Insurance:[facility] GONSERB: Community [address] MEDICAREPolicy [id number] Number: Repository [address]Avw: 330) [id number] [phone] (HP) Date:1400-89-09SS [address], [place] [address]OQ: 04/29/2018 Secondary NOT GIVENUNK [place] Insurance:SELF PAY [facility] Number: Effective Repository Date:2018-04-25 04/22/2018 HOANG Whittington Primary LORILE D [place] [id number] N Insurance:[employer] GONSERDOB: Community [address] MEDICAREPolicy [id number] [place] Number: Repository 65[address]Svj: (330 [id number] [phone] () Date:9964-27-47JS [address] [place] [address] 23752EM: 04/22/2018 Secondary NOT GIVENUNK [place] Insurance:SELF PAY [facility] Number: Effective Repository Date:2018-04-22 04/22/2018 HOANG M Primary LORILE D [place] [id number] N Insurance:[employer] GONSERDOB: Community [address] MEDICAREPolicy [id number] [place], [place] Number: Repository [address]Tdp: 330 [id number] [phone] () Date:4491-12-91QQ [address] [facility] [address]XQ: 04/22/2018 Secondary NOT GIVENUNK [place] Insurance:SELF PAY [facility] Hospital Number: Effective Repository Date:2018-03-14 04/10/2018 HOANG Whittington Primary LORILE D [place] [id number] N Insurance:[employer] GONSERDOB: Community [address] MEDICAREPolicy [id number] [place] Number: Repository [address]Wqc: 330 [id number] [phone] (HP) Date:1421-82-95WP [address] [facility]ANIp[place], [place] [address]GN: 04/10/2018 Secondary NOT GIVENUNK [place] Insurance:SELF PAY [facility] Hospital Number: Effective Repository Date:2018-02-15 02/21/2018 HOANG Whittington Primary LORILE D [place] [id number] N Insurance:[employer] CARE GONSERDOB: [facility] [id number] [facility] [place] Number: Repository [address]Xvp: (330 [id number] [phone] (HP) Date:0104-13-88MG [address] [place] [address]ZW: 02/21/2018 Secondary NOT GIVENUNK [place] Insurance:SELF PAY [facility] Hospital Number: Effective Repository Date:2018-02-21 02/19/2018 HOANG Whittington Primary LORILE D [place] [id number] N Insurance:[employer] GONSERDOB: Community [address] MEDICAREPolicy [id number] Regional Medical Center [place] Number: Repository 97[address]Uou: (330 [id number] [phone] (HP) Date:2920-02-87GX [address], [place] [address]QG: 02/19/2018 Secondary NOT GIVENUNK [place] Insurance:SELF PAY [facility] Hospital Number: Effective Repository Date:2018-02-19 02/07/2018 HOANG M Primary LORILE D [place] [id number] N Insurance:[employer] GONSERDOB: Community [address] MEDICAREPolicy [id number] [place], [place] Number: Repository 75[address]Yde: 330 [id number] [phone] (HP) Date:9996-88-08MZ [address], [place] [address]PY: 02/07/2018 Secondary NOT GIVENUNK [place] Insurance:SELF PAY [facility] Number: Effective Repository Date:2018-02-07 01/07/2018 HOANG M Primary LORILE D [place] [id number] N Insurance:[employer] CARE GONSERDOB: Community [address] MEDICAREPolicy [id number] [place] Number: Repository [address]Dhk: 330 [id number] [phone] (HP) Date:8451-98-52LC [address]ENTERJELANIponce, [place] [address]SZ: 01/07/2018 Secondary NOT GIVENUNK [place] Insurance:SELF PAY [facility] Number: Effective Repository Date:2018-01-07 12/20/2017 HOANG Whittington Primary LORILE D [place] [id number] N Insurance:[employer] GONSERDOB: Community [address] MEDICAREPolicy [id number] [place] Number: Repository 90896Ztt: 330 [id number] [phone] () Date:4711-69-44ZN [address] [place] [address]IB: 12/20/2017 Secondary NOT GIVENUNK [place] Insurance:SELF PAY [facility] Number: Effective Repository Date:2017-12-20 12/20/2017 HOANG Whittington Primary LORILE D [place] [id number] N Insurance:[employer] GONSERDOB: Community [address] MEDICAREPolicy [id number] [place], [place] Number: Repository [address]Ozr: 330 [id number] [phone] () Date:4854-94-62HL [address] [place] [address] 88021KG: 12/20/2017 Secondary NOT GIVENUNK [place] Insurance:SELF PAY [facility] Number: Effective Repository Date:2017-12-20 10/31/2017 HOANG Whittington Primary LORILE D [place] [id number] N Insurance:[employer] GONSERDOB: Community [address] MEDICAREPolicy [id number] [facility] Medical [facility] [place] Number: Repository [address]88Ldo: (330 [id number] [phone] () Date:1793-87-83TZ [address], [place] [address]UD: 10/31/2017 Secondary NOT GIVENUNK [place] Insurance:SELF PAY [facility] Hospital Number: Effective Repository Date:2017-03-28 10/29/2017 HOANG Whittington Primary LORILE D [place] [id number] N Insurance:[employer] C[employer] GONSERDOB: Community [address] MEDICAREPolicy [id number] [place], [place] Number: Repository 54668Kwm: (330 [id number] [phone] (HP) Date:6574-65-04TT [address] [place] [address] 74673KR: 10/29/2017 Secondary NOT GIVENUNK [place] Insurance:SELF PAY [facility]: Effective Repository Date:2017-10-29 09/26/2017 HOANG Whittington Primary LORILE D [place] [id number] N Insurance:[employer] CARE GONSERDOB: Community [address] MEDICARESierra [facility] [id number] [place], [place] Number: Repository 968[address]Hbz: (330 [id number] [phone] (HP) Date:4033-72-32CB [address] [place] [address] 13113JM: 09/26/2017 Secondary NOT GIVENUNK [place] Insurance:SELF PAY [facility] Number: Effective Repository Date:2017-09-26 09/26/2017 HOANG Whittington Primary LORILE D [place] [id number] N Insurance:[employer] GONSERDOB: Community [address] MEDICAREPolicy [id number] [place], [place] Number: Repository 284[address]Yjp: 330 [id number] [phone] () Date:4287-46-98EK [address] [place] [address] 50471GB: 09/26/2017 Secondary NOT GIVENUNK [place] Insurance:SELF PAY [facility] Number: Effective Repository Date:2017-09-26 09/18/2017 HOANG Whittington Primary LORILE D [place] [id number] N Insurance:[employer] CARE GONSERDOB: Community [facility] [address] [facility] [id number] [place], [place] Number: Repository [address]Umr: 330 [id number] [phone] (HP) Date:1185-08-04OY [address] [place] [address] 09360UQ: 09/18/2017 Secondary NOT GIVENUNK [place] Insurance:SELF PAY [facility] Hospital Number: Effective Repository Date:2017-09-18 07/30/2017 HOANG Primary LORILE D [place] [id number] N Insurance:[employer] CARE GONSERDOB: Community [address] MEDICAREPolicy [id number] [place], [place] Number: Repository 79390Dcy: (330 [id number] [phone] (HP) Date:7956-71-60OM [address] [place] [address]SJ: 07/30/2017 Secondary NOT GIVENUNK [place] Insurance:SELF PAY [facility] Hospital Number: Effective Repository Date:2017-07-30 07/30/2017 HOANG Primary LORILE D [place] [id number] N Insurance:[employer] CARE GONSERDOB: Community [address] MEDICAREPolicy [id number] [place], [place] Number: Repository 77[address]Cwi: 330 [id number] [phone] (HP) Date:5402-46-14LL [address] [facility] CENTERJELANIp[place], [place] [address]PA: 07/30/2017 Secondary NOT GIVENUNK [place] Insurance:SELF PAY [facility] Number: Effective Repository Date:2017-07-30 07/05/2017 HOANG Primary LORILE D [place] [id number] N Insurance:[employer] CARE GONSERDOB: Community [address] MEDICAREPolicy [id number] [place], [place] Number: Repository 75944Jxl: (330 [id number] [phone] (HP) Date:1018-33-87PQ [address] CENTERJELANIponce, [place] [address]OB: 07/05/2017 Secondary NOT GIVENUNK [place] Insurance:SELF PAY [facility] Hospital Number: Effective Repository Date:2017-07-05 07/05/2017 HOANG Primary LORILE D [place] [id number] N Insurance:[employer] CARE GONSERDOB: Community [address] MEDICAREPolicy [id number] [place], [place] Number: Repository 74208Bfx: 330 [id number] [phone] (HP) Date:3959-07-79TB [address]ENTERJELANIp[place], [place] [address]FO: 07/05/2017 Secondary NOT GIVENUNK [place] Insurance:SELF PAY [facility] Number: Effective Repository Date:2017-07-05 07/05/2017 HOANG Primary MACKENZIE Johnson [place] [id number] N Insurance:[employer] CARE GONSERDOB: Community [address] MEDICAREPolicy [id number] [place] Number: Repository [address]Apb: 330 [id number] [phone] () Date:1224-85-14XQ [address] [place] [address] 99[address]MZ: 07/05/2017 Secondary NOT GIVENUNK [place] Insurance:SELF PAY [facility] Number: Effective Repository Date:2017-07-05 07/05/2017 HOANG Primary MACKENZIE Johnson [place] [id number] N Insurance:[employer] GONSERDOB: Community [address] MEDICAREPolicy [id number] Regional Medical Center [place] Number: Repository [address]Udd: 330 [id number] [phone] () Date:4056-33-14OI [address], [place] [address]TG: 07/05/2017 Secondary NOT GIVENUNK [place] Insurance:SELF PAY [facility] Hospital Number: Effective Repository Date:2017-07-05 07/02/2017 HOANG Primary MACKENZIE Alvarezoster [id number] N Insurance:SUMMA CARE GONSERDOB: Community [address] MEDICAREPolicy [id number] Regional Medical Center [place] Number: Repository 38299Rdq: 330 [id number] [phone] () Date:5316-12-33VN [address], [place] [address]BL: 07/02/2017 Secondary NOT GIVENUNK [place] Insurance:SELF PAY [facility] Hospital Number: Effective Repository Date:2017-07-02 06/29/2017 HOANG Primary MACKENZIE Alvarezoster [id number] N Insurance:[employer] CARE GONSERDOB: Community [address] MEDICAREPolicy [id number] Regional Medical Center [place] Number: Repository 37[address]Nic: 330 [id number] [phone] (HP) Date:9869-81-95EZ [address] [facility]HAL[facility] [address]BD: 06/29/2017 Secondary NOT GIVENUNK [place] Insurance:SELF PAY [facility] Number: Effective Repository Date:2017-06-29 06/26/2017 HOANG Primary LORILE D [place] [id number] N Insurance:SUM[employer] CARE GONSERDOB: Community [address] MEDICAREPolicy [id number] [place], [place] Number: Repository 69702Taf: 330 [id number] [phone] (HP) Date:1006-57-60VF [address] [place] [address] 510[address]YD: 06/26/2017 Secondary NOT GIVENUNK [place] Insurance:SELF PAY [facility] Number: Effective Repository Date:2017-06-26 06/26/2017 HOANG Primary LORILE D [place] [id number] N Insurance:[employer] CARE GONSERDOB: Community [address] MEDICAREPolicy [id number] [place], [place] Number: Repository 102[address]Ppo: 330 [id number] [phone] () Date:0700-90-41NK [address] [facility] CENTERJELANIp[place], [place] [address]KL: 06/26/2017 Secondary NOT GIVENUNK [place] Insurance:SELF PAY [facility] Hospital Number: Effective Repository Date:2017-06-26 06/25/2017 HOANG Primary LORILE D [place] [id number] N Insurance:[employer] CARE GONSERDOB: Community [address] MEDICAREPolicy [id number] [place] Number: Repository 51240Kwq: 330 [id number] [phone] (HP) Date:1911-19-29WS [address] [facility] CENTERJELANIp[place], [place] [address]KA: 06/25/2017 Secondary NOT GIVENUNK [place] Insurance:SELF PAY [facility] Hospital Number: Effective Repository Date:2017-06-25 06/19/2017 Hoang Primary LORILE D [place] [id number] N Insurance:[employer] CARE GONSERDOB: Community [address] MEDICAREPolicy [id number] Regional Medical Center [place] Number: Repository [address]Gms: (330 [id number] [phone] (HP) Date:8135-63-39FJ [address] [place] [address]ME: 06/19/2017 Secondary NOT GIVENUNK [place] Insurance:SELF PAY [facility] Hospital Number: Effective Repository Date:2017-06-19 06/19/2017 Hoang Primary LORILE D [place] [id number] N Insurance:[employer] CARE GONSERDOB: Community [address] MEDICAREPolicy [id number] Regional Medical Center [place] Number: Repository 116[address]Gjh: (330 [id number] [phone] (HP) Date:4629-57-81ZA [address] [facility] CENTERJELANIp[place] [address]AD: 06/19/2017 Secondary NOT GIVENUNK [place] Insurance:SELF PAY [facility] Hospital Number: Effective Repository Date:2017-06-19 06/19/2017 Hoang Primary LORILE D [place] [id number] N Insurance:[employer]MA CARE GONSERDOB: Community [address] MEDICAREPolicy [id number] [place], [place] Number: Repository 40[address]Oad: 330 [id number] [phone] (HP) Date:4317-06-64XZ [address] [facility] [place]ENTERJELANIp[place] [address]OK: 06/19/2017 Secondary NOT GIVENUNK [place] Insurance:SELF PAY [facility] Hospital Number: Effective Repository Date:2017-06-19 06/19/2017 Hoang Primary LORILE D [place] [id number] N Insurance:[employer] CARE GONSERDOB: Community [address] MEDICAREPolicy [id number] Falls, [place] Number: Repository [address]77Eun: 330 [id number] [phone] (HP) Date:1663-11-30TR [address] [facility] CENTERJELANIp[place], [place] [address]SZ: 06/19/2017 Secondary NOT GIVENUNK [place] Insurance:SELF PAY [facility] Hospital Number: Effective Repository Date:2017-06-19 06/19/2017 Hoang Primary MACKENZIE Johnson [place] [id number] N Insurance:[employer] CARE GONSERDOB: Community [address] MEDICAREPolicy [id number] [place], [place] Number: Repository [address]Hpi: 330 [id number] [phone] () Date:7142-95-32CX [address] [place] [address]NV: 06/19/2017 Secondary NOT GIVENUNK [place] Insurance:SELF PAY [facility] Hospital Number: Effective Repository Date:2017-06-19 06/19/2017 Hoang Primary MACKENZIE Johnson [place] [id number] N Insurance:SUMMA CARE GONSERDOB: Community [address] MEDICAREPolicy [id number] Regional Medical Center [place] Number: Repository [address]Wiy: 330 [id number] [phone] () Date:9626-46-29TW [address] [place] [address] 855[address]MX: 06/19/2017 Secondary NOT GIVENUNK [place] Insurance:SELF PAY [facility] Hospital Number: Effective Repository Date:2017-06-19 06/19/2017 Hoang Primary MACKENZIE Alvarezoster [id number] N Insurance:SUMMA CARE GONSERDOB: Community [address] MEDICAREPolicy [id number] [place], [place] Number: Repository 49887Rlr: (330 [id number] [phone] () Date:3234-76-30GQ [address] [place] [address] 825[address]GT: 06/19/2017 Secondary NOT GIVENUNK [place] Insurance:SELF PAY [facility] Hospital Number: Effective Repository Date:2017-06-19 06/19/2017 Hoang Primary MACKENZIE Alvarezoster [id number] N Insurance:SUMMA CARE GONSERDOB: Community [address] MEDICAREPolicy [id number] Regional Medical Center [place] Number: Repository [address]70Ckm: (330) [id number] [phone] (HP) Date:9014-77-40UN [address] [address]KS: 06/19/2017 Secondary NOT GIVENUNK [place] Insurance:SELF PAY [facility] Number: Effective Repository Date:2017-04-26 06/06/2017 Hoang Primary LORILE D [place] [id number] N Insurance:[employer] CARE GONSERDOB: Community [address] MEDICAREPolicy [id number] Regional Medical Center [place] Number: Repository [address]Olj: (330) [id number] [phone] (HP) Date:4210-48-78UD [address], [place] [address]QG: 06/06/2017 Secondary NOT GIVENUNK [place] Insurance:SELF PAY [facility] Number: Effective Repository Date:2017-06-06 06/06/2017 Hoang Primary LORILE D [place] [id number] N Insurance:[employer]MA CARE GONSERDOB: Community [address] MEDICAREPolicy [id number] Behavioral Health [facility], [place] Number: Repository [address]Mab: (330) [id number] [phone] (HP) Date:4785-46-59YX [address] [place] [address]PQ: 06/06/2017 Secondary NOT GIVENUNK [place] Insurance:SELF PAY [facility] Number: Effective Repository Date:2017-06-04 06/04/2017 Hoang Primary NOT GIVENUNK [place] [id number] N Insurance:SELF PAY [facility] [place] Number: Effective Repository [address]13Ofu: (330) Date:2017-05-02 [phone] (HP) 05/17/2017 Hoang Primary LORILE D [place] [id number] N Insurance:[employer] C[employer] GONSERDOB: Community [address] MEDICAREPolicy [id number] Regional Medical Center [place] Number: Repository [address]Ins: (330) [id number] [phone] (HP) Date:2858-10-82JD [address], [place] [address]VH: 05/17/2017 Secondary NOT GIVENUNK [place] Insurance:SELF PAY [facility] Number: Effective Repository Date:2017-05-17
== END ==
PROVIDERS: Family Provider Family Medicine; PCP Family Medicine; Referring Provider Physician Assistant Medical; Visit Provider Physician Assistant Medical
DX: E78.5 Hyperlipidemia, unspecified (principal)
CPT/HCPCS: 36415; 80061; 80076

== ENCOUNTER → 2018-05-28 08:46 | Outpatient (CLI) | payer MEDICARE, SELFPAY ==
[2018-04-22 13:23] VITALS: BP 138/69; PULSE 70; RESP 18; TEMP 36.6; O2SAT 96; BMI 50.7
--- NOTE | 2018-04-22 13:55 | SDCEKG_ITS ---
Test Reason : Blood Pressure : / mmHG Vent. Rate : 068 BPM Atrial Rate : 068 BPM P-R Int : 136 ms QRS Dur : 084 ms QT Int : 418 ms P-R-T Axes : 044 044 049 degrees QTc Int : 444 ms Normal sinus rhythm Normal ECG Confirmed by LETA BOB, SHAYY ([id number]), magazine editor HUE CASANOVA ([id number]) on 04/23/2018 4:48:12 PM Referred By: Wilber Osborn Confirmed By:SHAYY GILLETTE MD
[2018-04-22 15:44] LABS: Absolute Lymphocyte Count 1.84 X10^3/ul (0.83-4.51); Absolute Neutrophil Count 5.8 X10^3/uL (2.0-7.7); Basophil# 0.06 X10^3/uL; Basophil% 0.7 % (0-1); Eosinophils% 2.4 % (0-5); Hematocrit 32.5 % (37-47); Hemoglobin 9.1 g/dl (12.0-15.0); Lymphocyte # 1.84 X10^3/ul (4.0); Lymphocyte % 22.1 % (19-41); Mean Corpuscular Hgb 21.2 pg (27.0-32.0); Mean Corpuscular Volume 75.6 fL (81-99); Mean Platelet Vol. 9.8 fl (6.2-12.0); Monocyte# 0.44 X10^3/uL; Monocyte% 5.3 % (0-10); Neutrophil # 5.79 X10^3/uL (2.7-7.7); Neutrophil % 69.4 % (47-70); Platelet Count 363 K/mm3 (150-450); RBC Distribution Width CV 17.9 % (11.6-14.6); RBC Distribution Width SD 49.2 fl (35.1-43.9); White Blood Count 8.3 K/mm3 (4.4-11.0)
[2018-04-22 15:51] LABS: POSITIVE COUNT NO; POSITIVE DIFFERENTIAL NO; POSITIVE MORPHOLOGY NO
[2018-04-22 16:11] LABS: Anion Gap 10 (5-15); BUN 15 mg/dL (7-18); BUN/Creat Ratio 15.3 RATIO (10-20); Calcium,Total 9.3 mg/dL (8.5-10.1); Chloride 105 mmol/L (98-107); Creatinine, Serum 0.98 mg/dL (0.55-1.02); EST Glomerular Filtration Rate 60 mL/min (>60); Est Glom Filt Rate - Afr Amer 73 mL/min (>60); Estimated Creatinine Clearance 43.76 ml/min; Glucose 139 mg/dL (74-106); Potassium 4.1 mmol/L (3.5-5.1); Sodium Level 142 mmol/L (136-145)
[2018-04-29 10:26] VITALS: BMI 50.9
[2018-06-04 14:02] LABS: Hematocrit 35.8 % (37-47); Hemoglobin 10.9 g/dl (12.0-15.0); Mean Corp Hgb Conc 30.4 g/gl (32-36); Mean Corpuscular Volume 82.1 fL (81-99); Mean Platelet Vol. 10.6 fl (6.2-12.0); Platelet Count 286 K/mm3 (150-450); RBC Distribution Width CV 23.3 % (11.6-14.6); RBC Distribution Width SD 67.9 fl (35.1-43.9); Red Blood Count 4.36 M/mm3 (4.2-5.4); White Blood Count 5.7 K/mm3 (4.4-11.0)
[2018-06-04 14:08] LABS: Scan Indicated on CBC? Y/N YES- FLAGS NOTED
[2018-06-04 14:29] LABS: Differential Comment SCANNED
== END ==
PROVIDERS: Physician Assistant Surgical; Family Provider Family Medicine; PCP Family Medicine; Referring Provider Specialist; Visit Provider Specialist
DX: Z01.818 Encounter for other preprocedural examination (principal)
CPT/HCPCS: 36415; 80048; 85025; 85027; 87077; 87081; 93005

== ENCOUNTER → 2018-06-04 10:23 | Outpatient (CLI) | payer MEDICARE, SELFPAY ==
[2018-04-29 10:26] VITALS: BMI 50.9
== END ==
PROVIDERS: Family Provider Family Medicine; PCP Family Medicine; Referring Provider Specialist; Visit Provider Specialist
DX: Z01.818 Encounter for other preprocedural examination (principal)

== ENCOUNTER 2018-06-26 06:44 | Inpatient (IN) | payer MEDICARE, SELFPAY ==
[2018-04-29 10:26] VITALS: BMI 50.9
--- NOTE | 2018-06-14 12:55 | HP.PCM_ITS ---
History and Physical DATE OF SURGERY: 06/26/2018 SCHEDULED PROCEDURE: right total knee polyethylene exchange with possible revision total knee arthroplasty HISTORY OF PRESENT ILLNESS: This is a 62-year-old female who has been having ongoing pain in her right knee. She underwent a previous right knee arthroplasty by Dr. Chua in June 2017. Patient was scheduled to undergo above procedure but had to be canceled due to to preoperative lab work with a hemoglobin at 9.1. Patient was treated with iron and folic acid and hemoglobin improved to 10.9. Patient still complains of significant instability in the right knee that causes her to fall. She has pain going up and down stairs. Patient denied any postoperative complications from her previous right total knee arthroplasty. She has tried a brace with no relief in symptoms. She has been using a walker due to the pain and instability. Patient does have a medical history pertinent for hypertension and previous stroke in 2005. Patient did have right-sided weakness following the stroke. We have obtain surgical clearance from the rewards consultant and primary care physician. Plan will be to stop the Plavix and aspirin prior to surgery per recommendations. Patient has had previous heart stents. She currently denies any change in medical history and denies any chest pain, shortness of breath, fevers chills, recent infections. After discussion with Dr. Wilber Osborn, the patient does wish to proceed with a right total knee polyethylene exchange versus possible revision total knee arthroplasty. REVIEW OF SYSTEMS: ROS: Const: Reports change in appetite, but denies anorexia, fever, difficulty sleeping, weight change. CV: Denies chest pain, heart murmur, irregular heartbeat and peripheral vascular disease. Resp: Denies asthma, cough, pneumonia, sleep apnea, shortness of breath, tuberculosis and wheezing. GI: Denies constipation, diarrhea, heartburn, nausea, rectal itching, bloody s tools and vomiting. : Denies incontinence. Musculo: Reports leg swelling and trouble walking, but denies pain and weakness. Skin: Denies Raynaud's, history of shingles and tattoo. Neuro: Reports difficulty with balance and numbness/tingling but denies ambulatory dysfunction, dizziness and tremor. Psych: Reports anxiety, but denies depression, insomnia, mental illness and stress. Yoandy/Lymph: Denies anemia, bleeding/bruising tendency and past transfusion. Reviewed, no changes. PAST MEDICAL HISTORY: Advance Care Plan: Other Directive, POA Effective Date: 12/18/2016 Other Directive, LIVING WILL Effective Date: 12/18/2016 PMH: Medical Problems: High Blood Pressure, Stroke, Hypercholesterolemia Accidents: None Surgical Hx: Gallbladder Hernia Repair - 1954 Hysterectomy, Tonsillectomy Stent - X2 HEART RT 3RD & 4TH Toe Flexor Tenotomy - (11/18/2014) [facility] Knee Replacement RT - July Dr. Chua Anesthesia Complications: Takes Awhile To Come Out Assistive Devices: Dentures, Walker, Brace Reviewed and updated. 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 Personal Habits: Smoking: Patient has never smoked.Cigarette Use: Never Smoked Cigarettes.Alcohol: Denies use.Drug Use: Denies Use.Enjoy Exercising: Exercises 1-3 X/Week. Reviewed, no changes. VITALS: Ht: 62 Wt: 276lb Wt k.194 BMI: 50.5 BP: 163/75 Pulse: 71 Resp: 16 T: 97.5 T: 36.4C ALLERGIES: Trazodone Lexapro Tape MEDICATIONS: Alprazolam 1 mg 1po bid, Celexa 40 mg daily, Zoloft 50 mg 2 tabs PO daily, Plavix 75 mg take 1/2 tablet every daily, Cyclobenzaprine HCL 5 mg three times a day as needed for spasms, Zestril 20 mg 1 tab PO bid, Duloxetine HCL 60 mg 1 by mouth every day, Zantac 150 mg 1 by mouth every day, Metoprolol Tartrate 25 mg 1 by mouth every day, Motrin Ib 200 mg 1-2 tabs PO prn, Protonix 40 mg 1 tab PO daily, Lipitor 40 mg 1 tab PO daily, Mirapex 0.5 mg 1 tab PO daily, Norvasc 2.5 mg 1 tab PO daily, Probiotic 1 cap PO daily, Ranitidine HCL 150 mg Take 1 tablet by mouth daily, Ibuprofen 600 mg take 1 tablet by mouth three times daily, Folic Acid 1 mg 1 by mouth every day, Ferrous Sulfate 325 (65 Fe) MG take 1 tablet by mouth twice a day PRE-OP EXAM: General appearance:NORMAL Other: Eyes: Conjunctivae and lids: NORMAL Pupils: ERR Ears, Nose, Mouth, and Throat: NORMAL Other: Inspection of lips, teeth and gums: NORMAL Other: Neck: Examination of neck: no masses noted. Respiratory: Assessment of respiratory effort: NORMAL Other: Auscultation of lungs: clear to auscultation no wheezes, rhonchi or rales. Cardiovascular: Auscultation of heart: regular rate and rhythm, no murmurs, gallops or rubs. Gastrointestinal: Exam of abdomen: soft, nontender, nondistended bowel sounds present. PHYSICAL EXAMINATION: Patient does report continued instability and falls due to her right knee pain. Patient does walk with an antalgic gait. Right knee is without signs of infection. Previous incision is well-healed without erythema. Range of motion right knee: 0 of extension to 115 flexion. Patient has instability with anterior and posterior drawer test. There is also laxity with medial/lateral with varus valgus stress test. Sensation intact to light touch. Neurovascularly intact. IMAGING STUDIES: Previous x-rays reveal a well aligned knee in the coronal plane with previously placed total knee. This is a cruciate retaining total knee arthroplasty. On the lateral view there is posterior sag of the tibia on the distal femur. Repeat lab work for CBC has shown hemoglobin improved to 10.9 IMPRESSION: 1. Painful right total knee arthroplasty with instability 2. Hypertension 3. Hypercholesterolemia 4. Previous stroke 2005 5. History of heart stent: Currently on Plavix and aspirin 6. Anemia: improved to 10.9, currently taking iron and folic acid PLAN: Dr. Wilber Osborn did discuss and review with the patient all treatment options including surgical versus nonsurgical options. Patient does wish to proceed with the above-stated procedure. Potential risks, benefits, and complications of the procedure were discussed in detail including but not limited to , infection, nerve and blood vessel damage, persistent pain, numbness, tingling, paresthesias, blood clot, pulmonary embolism, and requirement for possible further surgery. The patient expressed full understanding and has no further questions for the doctor. Patient does agree to proceed with the above-stated procedure and has signed the surgery consent form. This dictation was created using voice recognition software. Phonetic and/or grammatical errors may exist.. ___ I have re-examined the patient. There are no clinical changes since date of exam. ___ See progress notes for changes. ___ Dictated on admission Date: Time: Signature:
[2018-06-26] VITALS (36 sets, daily range): BP systolic 101–164; BP diastolic 56–94; PULSE 65–86; RESP 12–20; TEMP 36.3–37.1; O2SAT 84–99; BMI 51.4
[2018-06-26 07:21] LABS: International Normalized Ratio 1.1; Partial Thromboplast Time 25.8 Seconds (24.1-36.2); Prothrombin Time (Protime)PT. 13.6 SECONDS (11.7-14.9)
[2018-06-26] MEDS: Acetaminophen 500 MG Tablet 1000 MG PO ×3 (07:33→21:15)
[2018-06-26] MEDS: Celecoxib 200 MG Capsule 400 MG PO (07:33)
[2018-06-26] MEDS: oxyCODONE HCl Cr 10 MG Tablet PO (07:34)
[2018-06-26] MEDS: Scopolamine 1mg/72hr Patch 1 PATCH TD (11:15)
--- NOTE | 2018-06-26 11:28 | OP.PCM_ITS ---
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 Surgery/Procedure Performed:: Revision total knee replacement entire tibia and femoral components Description of Surgical Findings:: Stable knee batch or continuous still operator: Petty Madera Type of Anesthesia:: Spinal Anesthesiologist: Sahil Coreas Special Medications: 2 g Ancef, 2 g of TXA at wound prior to closure, 10 mg Decadron, joint cocktail (5 mg Duramorph, 30 mL of 0.5% Ropivicaine, 1000 units of epinephrine, 30 mg of Toradol) Specimen's removed: 5 separate specimens were sent to microbiology Estimated Blood Loss (mL): 100 Fluids Replaced: 1800 mL crystalloid Description of Procedure: 62 yo F history of r TKA in June 19, 2017 presents with gross instability of the right knee in both flexion and extension contributing to her frequent falls. After thorough discussion in the office and natural history of the patient's problem we discussed possible poly-exchange and based on her instability and laxity potential full revision of the knee replacement if we could not obtain stability with a cruciate retaining implant she had. Risks and benefits of the procedure were discussed with the patient including but not limited to blood loss, DVTs, PEs, neurovascular damage, infection, general risk of anesthesia including loss of life. Demonstrated understanding and was able to sign informed consent. On the date of procedure patient's R lower extremity was marked in the preoperative area. The patient was then taken back to the operating room where the patient was placed on the table in the supine position. All bony prominences were identified a well-padded. Anesthesia assumed control of the C-spine and airway and remained controlled throughout the remainder of the procedure. A tourniquet was placed on the operative thigh and the leg was prepped in a sterile fashion. The surgeon then scrubbed at this time .Upon reentering the room left lower extremity was draped in a standard orthopedic fashion. A timeout was then called and everyone agreed upon the side, the site, the procedure to be performed, patient's identity and antibiotics given. A midline skin incision was made and sharp dissection was taken down through skin subcutaneous tissue and fat. Appropriate flaps were elevated medially and laterally. His arthrotomy was identified and the standard medial parapatellar incision was made and the patella was subluxed laterally. The standard deep MCL release was done. At this point an aggressive synovectomy commenced. Our attention was first turned towards the subpatellar pouch and all suspicious synovium and tissues were debrided. We then directed our attention towards medial lateral gutters were these tissues were aggressively debrided. Knee was then flexed up the polyethylene was removed. Once polyethylene was removed we did the remainder of the synovium in the medial and lateral gutters and along the lateral structures and MCL. We then debrided the posterior knee. Knee was flexed up and culture was taken from the femoral notch. And also there was a membrane beneath the tibial baseplate that was removed and sent for culture. He had completed our synovectomy and were happy with the joint. We began trialing polyethylene components. The largest polyethylene component for a cruciate retaining knee was 19 mm. Patient continued to have gross instability. Based on this we knew we had to proceed with full revision. At this time the knee was flexed up and our attention was turned towards the femur. Flexible osteotome was used to break up the bone implant interface as this was a press-fit implant. Once we adequately broke up the interface a bone tamp was used to remove the tunnel comp onent from the distal femur with minimal bone loss. We then directed our attention towards the tibia with the knee flexed. Flexible osteotome was used to break up the implant bone interface. A rigid osteotome was used to help break up the tRitanium pegs. Once we did this stacked osteotomes were used to remove the ileal component. The patella component was examined and well fixed. Based on the patient's problem we elected to leave the patella component. At this time our attention was directed towards the reconstruction. Cleanup cuts were made on the femur and the tibia. Focusing on the tibia we reamed both the femoral and tibial canals initially up to 12 mm. Once this was done based on the patient's size we wanted to use a press-fit tibial implant. We also want her to use a cone to help with fixation and stability. We then reamed over the reamer for a size B cone. The final cleanup cut was made on the tibia and the trial implant was placed with 5 mm augments both medially and laterally. The tibial cleanup cut was made in a neutral position. Our attention was directed back towards the femur where we reamed to 14 mm. At this time based on the previous bone cuts and minimal bone loss we elected to cut a box in the femur and used the same size femur. Previous rotation had appeared to be appropriate. Once this was done we wanted to use a cemented femoral stem. We placed the femoral trials and got a good fit on the size 3 implant. We then trialed and found that a 22 mm polyethylene gave us a balance knee with good stability. Once this was done trial components were removed. The wound was copiously read out 6 L normal saline under low pressure lavage. Cement plug was placed in the femur for the cemented stem. We initially tried to use a press-fit stem however based on the offset available there was too much medial or lateral overhang which was undesirable. Once the bone was adequately prepped bipolar cautery with an aqua Lesa was used to obtain hemostasis in the joint capsule. Knee was flexed up and cement was mixed. The canal restrictor was placed in the femur. The cone was placed in the tibia. We then placed cement around the proximal tibia and cemented tibia and placed in the appropriate external rotation. We then pressurized the femoral canal and cemented the femur into appropriate position. Knee was placed in extension with 22 mm polyethylene. Once the cement had cured knee was taken through range of motion and the 22 mm polyethylene gave us a balance knee with good stability in both flexion and extension. Trial component was removed. Knee was flexed up. Any excess cement was removed from the posterior knee. Any excess bone debris was removed from the posterior knee. IrriSept irrigation was used to irrigate out the joint for 1 minute. Final component was placed and central peg was placed. Tourniquet was let down and hemostasis was obtained. 2 g of TXA were placed in the wound for a 1 minute lavage. After this was janki irrigated out the joint. Hemostasis had been controlled. Patella tracking was checked and found to be appropriate. Wound was closed in a layer was fashion using #1 Vicryl for the arthrotomy and deep subcuticular layers, 2-0 interrupted Vicryl for the subcuticular layer and carri for final skin closure. A sterile compressive dressing was then placed. The patient was then awakened from anesthesia, transferred to the [facility] and transferred to the PACU for recovery. Post op plan Patient will be weightbearing as tolerated, range of motion as tolerated. Activity as tolerated. Aspirin 81 mg twice daily. Follow-up in office in 2 weeks. 1 week doxycycline. Components: Tibia size 3 universal tibial baseplate with 12 mm x 150 mm press-fit stem. 5 mm augments medially and laterally. Polyethylene: Size 320 mm TS poly Femur size 3 femur with cemented 100 mm x 9 mm stem. Grafts/Implants Used: Fabiola triathlon total stabilized - Complications No intraoperative complications - Admit VTE Documentation VTE Present on Admission: No VTE Mechan Device Prophylaxis: SCD's, Thigh High FRANCI Hose VTE Pharm Prophylaxis ordered?: Yes
--- NOTE | 2018-06-26 12:20 | RAD_ITS ---
STUDY: X-RAY - RIGHT KNEE REASON FOR EXAM: Female, 62 years old. Postop. TECHNIQUE: 2 views of the knee. COMPARISON: 4 views of the right knee December 20, 2017. FINDINGS: Normal density of the visualized distal femur. Normal density of the visualized proximal tibia and fibula. Normal proximal tibiofibular articulation. There is no demonstrated fracture. The patient has undergone a redo right total knee arthroplasty. New metal prostheses overlying the femoral condyles and tibial plateau appear well seated, and in anatomic alignment. Stems of each prosthesis extend into the associated diaphyses. The stem of the femoral prosthesis is surrounded by radiopaque cement. There is stable irregularity along the posterior aspect of the patella related to a radiolucent prosthesis at that site. Gas lucencies in the peripatellar tissues are consistent with the recent surgery. There is mild anterolateral superficial soft tissue swelling. There are numerous metal skin carri along the anterior midline. RAD/Knee 1 or 2 Views IMPRESSION: Status post redo right total knee arthroplasty. Electronically Signed: Calvin Marino MD at 12:45 EDT , Service support ,
--- NOTE | 2018-06-26 14:10 | SUR.PHASEI ---
PT RECEIVED DUO NEB, PT EVALUATED BY RESP, INCENTIVE SPIROMETER GIVEN, PT TOLERATE WELL.
--- NOTE | 2018-06-26 14:56 | SUR.PHASEI ---
Addendum entered by Delia Solis 06/26/18 15:46: DR ERWIN UPDATED, STATES MAY TXR TO MED-SURG, HOSPITALIST IS ON CONSULT FOR MEDICAL MANAGEMENT. PATIENT TALKATIVE, JOKING, NEEDS REMINDED TO TALK LESS AND CONCENTRATE ON INTERMITTENT PULMONARY TOILET. DENIES DIFFICULTY BREATHING. SCATTERED EXPIRATORY WHEEZES AND DIMINISHED. Original Note: PATIENT IN PACU 3 HOURS, SPO2 STILL 88-89% ON 6 L/MIN SIMPLE MASK, IMPROVES IF PATIENT RESTS AND STOPS TALKING. PATIENT IS VERY TALKATIVE AND FREQUENTLY MOVING. WHEN PATIENT RESTS AND COUGHS, DEEP BREATHES, IMPROVES TO >92%. ENCOURAGED TO USE INCENTIVE SPIROMETER, PULMONARY TOILET. UPDATED DR PEACOCK, MAY TRANSFER TO UNIT IF MAINTAINING ABOVE 92% ON 6 L/MIN.
[2018-06-26] MEDS: Cefazolin 1 GM/50 ML BAG IV (16:29)
[2018-06-26] MEDS: Ferrous Sulfate 325 MG Tablet PO (16:33)
[2018-06-26] MEDS: Glucerna Shake 120 ML LIQUID PO (16:42)
[2018-06-26] MEDS: Lactated Ringers 1,000 ML 75 ML IV (16:42)
--- NOTE | 2018-06-26 17:48 | NURSING ---
dr notified that pt sats 84% on 6l simple mask. encouraged i.s. and pt up in chair. dr ordered bipap
[2018-06-26] MEDS: 0.9% NaCl Peripheral Flush Adult/Peds IV ×4 (17:54→23:11)
--- NOTE | 2018-06-26 17:57 | PCM.PN.HOSP ---
Subjective: 62-year-old female with a history of CAD post stent, CVA, HTN, HLD presents for a right total knee replacement. She had had this done previously and the need to be redone. She states that she has been in her usual health prior to surgery and has not had any major medication changes prior to surgery. She currently states that she is feeling okay though may be a little bit short of breath and she does appear to be a little bit sleepy after anesthesia. She is denying any lower extremity pain, and denies any chest pain. Vitals/I&O's: Vital Signs Temp Pulse Resp BP Pulse Ox 97.4 F L 81 18 149/62 H 84 06/26/18 17:46 06/26/18 17:46 06/26/18 17:46 06/26/18 17:46 06/26/18 17:46 Oxygen Flow Rate (L/min) 6 Oxygen Delivery Method Simple Mask Weight: 272 lb 0.807 oz Body Mass Index (BMI) 51.4 Finger Stick Blood Glucose 97 Intake and Output for Last 24 Hours 06/24/18 06/25/18 06/26/18 23:59 23:59 23:59 Intake Total 3100 / 3100 Output Total 150 / 150 Balance 2950 / 2950 General: Oriented x3, Cooperative, No apparent distress, - - Sleepy HEENT: Atraumatic, PERRLA, EOMI, Normocephalic Oral: Moist Mucosa Neck: Supple, No JVD, Trachea Midline Lungs: Diminished, Rales, - - Coarse breath sounds bilaterally Cardiovascular: Regular rate, Regular Rhythm, Normal S1, Normal S2, No murmurs Abdomen: Soft, Non Tender, Non-Distended, No Hepato-splenomegaly Extremities: No edema, Capillary Refill Less than 3 Seconds Skin: No rashes, No breakdown, Incision - Dressing intact Neurological: Neuro grossly intact, Sensory exam intact to light touch and pain Psych/Mental Status: Normal Affect, Appropriate Microbiology Past 72 Hours 06/26/18 11:53 Biopsy - Other Gram Stain - Final Laboratory Results 06/26/18 07:06: PT 13.6, INR 1.1, APTT 25.8 Current Medications Acetaminophen (Tylenol) 1,000 mg PO Q8 [facility] Last Admin: 06/26/18 16:30 Dose: 1,000 mg Alprazolam (Xanax) 0.5 mg PO BID [facility] Amlodipine Besylate (Norvasc) 10 mg PO DAILY [facility]irin [facility], [facility]) [facility] Atorvastatin Calcium (Lipitor) 40 mg PO QHS [facility] Clopidogrel Bisulfate (Plavix) 75 mg PO QHS [facility] Doxycycline Monohydrate (Doxycycline) 100 mg PO BID [facility] Stop: 07/03/18 22:01 Duloxetine HCl (Cymbalta) 60 mg PO DAILY [facility] Famotidine (Pepcid) 20 mg PO DAILY [facility] Ferrous Sulfate (Ferrous Sulfate) [facility] Last Admin: 06/26/18 16:33 Dose: 325 mg Folic Acid (Folic Acid) 1 mg PO DAILY@0800 [facility] Cefazolin Sodium () 1 gm in 50 mls @ 150 mls/hr IV Q8H [facility] Stop: 06/27/18 00:49 Last Admin: 06/26/18 16:29 Dose: 150 mls/hr Ketorolac Tromethamine (Toradol) 15 mg IV Q6H PRN PRN PRN Reason: MILD-MOD PAIN (1-5/10) Lisinopril (Zestril) 20 mg PO BID [facility] Metoprolol Tartrate (Lopressor (Beta Ana)) 25 mg PO BID [facility] Morphine Sulfate () 2 - 4 mg IV Q2H PRN PRN PRN Reason: SEVERE PAIN (6-10/10) Morphine Sulfate () 2 - 4 mg IV Q2H PRN PRN PRN Reason: SEVERE PAIN (6-10/10) Nutritional Formula (Lactose Free) (Glucerna Shake) 120 ml PO TIDCM [facility] Last Admin: 06/26/18 16:42 Dose: 120 ml Ondansetron HCl (Zofran) 4 mg IV Q8H PRN PRN PRN Reason: NAUSEA Oxycodone HCl (Oxyir) 5 - 10 mg PO Q4H PRN PRN PRN Reason: MOD-SEVERE PAIN (4-10/10) Pantoprazole Sodium (Protonix) 40 mg PO QHS [facility] Pramipexole Dihydrochloride (Mirapex) 1 mg PO QHS [facility] Promethazine HCl (Phenergan) 12.5 mg IM Q6H PRN PRN; Protocol PRN Reason: NAUSEA/VOMITING Senna/Docusate Sodium (Senokot-S, Erica-Colace) 2 tablet PO BID [facility] Sertraline HCl (Zoloft) 100 mg PO DAILY [facility] Sodium Chloride () 5 - 15 ml IV UD PRN PRN Reason: SALINE FLUSH Last Admin: 06/26/18 17:54 Dose: 10 ml Medical Necessity - Tobacco Use Smoking Status: Never smoker Assessment/Plan All Active Problems (Last Reviewed 07/02/17 @ 14:45 by Hal Metzger) History of knee replacement (Resolved) History of heart artery stent (Resolved) H/O arthroscopy of right knee (Resolved) UTI (urinary tract infection) (Acute) Metabolic encephalopathy (Acute) 1. Right knee arthritis status post redo of total knee placement/shortness of breath -Pain management per primary -We will hold IV fluids given her shortness of breath and her coarse breath sounds -We will add DuoNeb, and will obtain chest x-ray -If necessary can initiate BiPAP overnight to improve her respiratory status until the anesthesia completely wears off -She has had problems on prior surgeries with getting off of oxygen postoperatively 2. CAD status post stent/HLD/HTN/history of CVA/MARIA ESTHER -We will hold her lisinopril and check a BMP in the morning -Continue with her metoprolol, Norvasc, Plavix and aspirin -Continue with Lipitor 3. Depression/anxiety -Stable -Continue with Cymbalta and Xanax -She is also on Zoloft 4. GERD -Stable -Continue with PPI DVT: SCDs Code Visit Inpatient E&M: 92141 Subs Hosp L3
--- NOTE | 2018-06-26 18:08 | NURSING ---
pt up in chair. eating clear liquids. prt at bedside and place 8l high flow nc on pt.
--- NOTE | 2018-06-26 18:11 | CPS ---
Called to [facility] stat to place pt on bipap therapy, pt was put on 6L High flow NC in PACU and was doing well on high flow cannula. RT's explained to RN in PACU to send pt up on high flow NC. Pt was not sent up on high flow NC, instead 6L simple mask. Pt currently on 8L high flow NC and pt eating. Pt will be placed on bipap therapy around 7/7:30 if oxygen saturations don't improve. Dr. Low and Trinity RN aware.
--- NOTE | 2018-06-26 18:15 | PN_ITS ---
Subjective: 62-year-old female with a history of CAD post stent, CVA, HTN, HLD presents for a right total knee replacement. She had had this done previously and the need to be redone. She states that she has been in her usual health prior to surgery and has not had any major medication changes prior to surgery. She currently states that she is feeling okay though may be a little bit short of breath and she does appear to be a little bit sleepy after anesthesia. She is denying any lower extremity pain, and denies any chest pain. Vitals/I&O's: Vital Signs Temp Pulse Resp BP Pulse Ox 97.4 F L 81 18 149/62 H 84 06/26/18 17:46 06/26/18 17:46 06/26/18 17:46 06/26/18 17:46 06/26/18 17:46 Oxygen Flow Rate (L/min) 6 Oxygen Delivery Method Simple Mask Weight: 272 lb 0.807 oz Body Mass Index (BMI) 51.4 Finger Stick Blood Glucose 97 Intake and Output for Last 24 Hours 06/24/18 06/25/18 06/26/18 23:59 23:59 23:59 Intake Total 3100 / 3100 Output Total 150 / 150 Balance 2950 / 2950 General: Oriented x3, Cooperative, No apparent distress, - - Sleepy HEENT: Atraumatic, PERRLA, EOMI, Normocephalic Oral: Moist Mucosa Neck: Supple, No JVD, Trachea Midline Lungs: Diminished, Rales, - - Coarse breath sounds bilaterally Cardiovascular: Regular rate, Regular Rhythm, Normal S1, Normal S2, No murmurs Abdomen: Soft, Non Tender, Non-Distended, No Hepato-splenomegaly Extremities: No edema, Capillary Refill Less than 3 Seconds Skin: No rashes, No breakdown, Incision - Dressing intact Neurological: Neuro grossly intact, Sensory exam intact to light touch and pain Psych/Mental Status: Normal Affect, Appropriate Microbiology Past 72 Hours 06/26/18 11:53 Biopsy - Other Gram Stain - Final Laboratory Results 06/26/18 07:06: PT 13.6, INR 1.1, APTT 25.8 Current Medications Acetaminophen (Tylenol) 1,000 mg PO Q8 [facility] Last Admin: 06/26/18 16:30 Dose: 1,000 mg Alprazolam (Xanax) 0.[address] [facility] Amlodipine Besylate (Norvasc) [address] [facility] Atorvastatin Calcium (Lipitor) [address] [facility] Clopidogrel Bisulfate (Plavix) [address] [facility] Doxycycline Monohydrate (Doxycycline) [address] [facility] Stop: 07/03/18 22:01 Duloxetine HCl (Cymbalta) [address] [facility] Famotidine (Pepcid) [address] [facility] Ferrous Sulfate ([facility]ulfate) [facility] Last Admin: 06/26/18 16:33 Dose: 325 mg Folic Acid (Folic Acid) 1 mg PO DAILY@0800 [facility] Cefazolin Sodium () 1 gm in 50 mls @ 150 mls/hr IV Q8H [facility] Stop: 06/27/18 00:49 Last Admin: 06/26/18 16:29 Dose: 150 mls/hr Ketorolac Tromethamine (Toradol) 15 mg IV Q6H PRN PRN PRN Reason: MILD-MOD PAIN (1-5/10) Lisinopril (Zestril) [address] [facility] Metoprolol Tartrate (Lopressor (Beta Ana)) [address] [facility] Morphine Sulfate () 2 - 4 mg IV Q2H PRN PRN PRN Reason: SEVERE PAIN (6-10/10) Morphine Sulfate () 2 - 4 mg IV Q2H PRN PRN PRN Reason: SEVERE PAIN (6-10/10) Nutritional Formula (Lactose Free) (Glucerna Shake) [address] [facility] Last Admin: 06/26/18 16:42 Dose: 120 ml Ondansetron HCl (Zofran) 4 mg IV Q8H PRN PRN PRN Reason: NAUSEA Oxycodone HCl (Oxyir) 5 - 10 mg PO Q4H PRN PRN PRN Reason: MOD-SEVERE PAIN (4-10/10) Pantoprazole Sodium (Protonix) [address] [facility] Pramipexole Dihydrochloride (Mirapex) [address] [facility] Promethazine HCl (Phenergan) 12.5 mg IM Q6H PRN PRN; Protocol PRN Reason: NAUSEA/VOMITING Senna/Docusate Sodium (Senokot-S, Erica-Colace) 2 tablet PO BID [facility] Sertraline HCl (Zoloft) 100 mg PO DAILY [facility] Sodium Chloride () 5 - 15 ml IV UD PRN PRN Reason: SALINE FLUSH Last Admin: 06/26/18 17:54 Dose: 10 ml Medical Necessity - Tobacco Use Smoking Status: Never smoker Assessment/Plan All Active Problems (Last Reviewed 07/02/17 @ 14:45 by Hal Metzger) History of knee replacement (Resolved) History of heart artery stent (Resolved) H/O arthroscopy of right knee (Resolved) UTI (urinary tract infection) (Acute) Metabolic encephalopathy (Acute) 1. Right knee arthritis status post redo of total knee placement/shortness of breath -Pain management per primary -We will hold IV fluids given her shortness of breath and her coarse breath sounds -We will add DuoNeb, and will obtain chest x-ray -If necessary can initiate BiPAP overnight to improve her respiratory status until the anesthesia completely wears off -She has had problems on prior surgeries with getting off of oxygen postoperatively 2. CAD status post stent/HLD/HTN/history of CVA/MARIA ESTHER -We will hold her lisinopril and check a BMP in the morning -Continue with her metoprolol, Norvasc, Plavix and aspirin -Continue with Lipitor 3. Depression/anxiety -Stable -Continue with Cymbalta and Xanax -She is also on Zoloft 4. GERD -Stable -Continue with PPI DVT: SCDs Code Visit Inpatient E&M: 55077 Subs Hosp L3
--- NOTE | 2018-06-26 18:20 | RAD_ITS ---
STUDY: X-RAY CHEST REASON FOR EXAM: Female, 62 years old. Shortness of breath TECHNIQUE: Single frontal view COMPARISON: July 05, 2017 FINDINGS: The lungs are not fully expanded. Diffuse interstitial prominence of the lungs. Normal size heart. Normal mediastinum and aayush. Normal visualized pulmonary arteries. Calcified aortic arch and descending thoracic aorta. Normal visualized thoracic spine. Normal visualized ribs, clavicles, and shoulders. There is no demonstrated abnormality of the visualized soft tissue structures of the upper abdomen. RAD/Chest 1 View (Portable) IMPRESSION: Diffuse pulmonary interstitial prominence. Electronically Signed: Hernan Delong DO at 21:52 EDT Tel [phone], Service support ,
[2018-06-26] MEDS: Ipratropium/Albuterol Sulfate 3 ML AMPUL.NEB INHALATION ×2 (19:45→23:30)
[2018-06-26] MEDS: Morphine 4 MG/ML Syringe IV (21:04)
[2018-06-26] MEDS: Aspirin 81 MG TAB.CHEW PO (21:09)
[2018-06-26] MEDS: Senna/Docusate Sodium 1 Tablet 2 TABLET PO (21:09)
[2018-06-26] MEDS: Pantoprazole Sodium 40 MG Tablet PO (21:15)
[2018-06-26] MEDS: Clopidogrel Bisulfate 75 MG Tablet PO (21:15)
[2018-06-26] MEDS: Metoprolol Tartrate 25 MG Tablet PO (21:15)
[2018-06-26] MEDS: Atorvastatin Calcium 40 MG Tablet PO (21:15)
[2018-06-26] MEDS: Doxycycline 100 MG CAPSULE PO (21:15)
[2018-06-26] MEDS: Pramipexole Di-HCl 1 MG Tablet PO (21:22)
[2018-06-26] MEDS: Furosemide 20 MG/2 ML VIAL IV (22:05)
[2018-06-26] MEDS: oxyCODONE 5 MG Tablet PO (22:12)
[2018-06-26] MEDS: Ketorolac 15 MG/ML Vial IV (23:11)
[2018-06-27] VITALS (20 sets, daily range): BP systolic 120–168; BP diastolic 56–79; PULSE 65–92; RESP 12–20; TEMP 36.5–37.1; O2SAT 92–98
[2018-06-27] MEDS: 0.9% NaCl Peripheral Flush Adult/Peds IV ×4 (00:18→21:08)
[2018-06-27] MEDS: Cefazolin 1 GM/50 ML BAG IV (00:18)
[2018-06-27] MEDS: Morphine 2 MG/ML Syringe IV (00:27)
[2018-06-27] MEDS: oxyCODONE 5 MG Tablet PO ×3 (02:20→19:20)
[2018-06-27] MEDS: Ipratropium/Albuterol Sulfate 3 ML AMPUL.NEB INHALATION ×5 (03:30→23:02)
--- NOTE | 2018-06-27 03:52 | CPS ---
PT STATES SHE IS UNABLE TO WEAR BIPAP ANYMORE,RN NOTIFIED.
[2018-06-27 06:00] LABS: Hematocrit 38.1 % (37-47); Hemoglobin 11.5 g/dl (12.0-15.0); Mean Corp Hgb Conc 30.2 g/gl (32-36); Mean Corpuscular Hgb 25.5 pg (27.0-32.0); Mean Corpuscular Volume 84.5 fL (81-99); Mean Platelet Vol. 10.4 fl (6.2-12.0); Platelet Count 304 K/mm3 (150-450); RBC Distribution Width CV 21.9 % (11.6-14.6); RBC Distribution Width SD 65.3 fl (35.1-43.9); Red Blood Count 4.51 M/mm3 (4.2-5.4)
[2018-06-27 06:01] LABS: Scan Indicated on CBC? Y/N YES- FLAGS NOTED
[2018-06-27 06:05] LABS: Anion Gap 7 (5-15); BUN 25 mg/dL (7-18); BUN/Creat Ratio 18.8 RATIO (10-20); Calcium,Total 8.5 mg/dL (8.5-10.1); Chloride 104 mmol/L (98-107); Creatinine, Serum 1.33 mg/dL (0.55-1.02); EST Glomerular Filtration Rate 43 mL/min (>60); Est Glom Filt Rate - Afr Amer 52 mL/min (>60); Estimated Creatinine Clearance 32.25 ml/min; Glucose 183 mg/dL (74-106); Potassium 4.8 mmol/L (3.5-5.1); Sodium Level 137 mmol/L (136-145)
[2018-06-27] MEDS: Acetaminophen 500 MG Tablet 1000 MG PO ×3 (06:12→21:07)
[2018-06-27 07:17] LABS: Differential Comment SCAN
--- NOTE | 2018-06-27 09:06 | PCM.PN.ORT ---
Subjective: The patient was sitting in bedside chair upon examination. Patient denies any chest pain, dizziness, nausea or vomiting, or calf pain. Patient does not Complain of occasional shortness of breath and lightheadedness. Patient was having significant pain in the right knee yesterday but the pain is better today. Pain is controlled on medications. Medicine is helping with management of patient and did place patient on BiPAP but patient states she was unable to tolerate this and took it off at midnight. Patient has had significant pulmonary problems after previous surgery in June [address] Martir Chua. However when talking to the patient she does not recall any of this. 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 Patient states she does not feel she ever went and had appointment. She does not require oxygen at home. She states she has not been diagnosed with any sleep apnea. Patient is currently requiring 6 L of nasal O2. Objective: Patient currently on 6 L of nasal O2 with 92% saturation. Vital signs stable and afebrile. Patient is able to plantarflex and dorsiflex actively. Sensation is intact to light touch to saphenous, sural, superficial and deep peroneal, and tibial distribution. Dressing is clean dry and intact. Negative Homans bilaterally, negative signs and symptoms of DVT. - Physical Exam General: Alert, Oriented x3, Cooperative, No apparent distress Vital Signs Temp Pulse Resp BP Pulse Ox 98.1 F 73 18 151/69 H 92 06/27/18 07:50 06/27/18 07:50 06/27/18 07:50 06/27/18 07:50 06/27/18 07:50 Oxygen Flow Rate (L/min) 6 Oxygen Delivery Method Nasal Cannula Weight: 123.4 kg Body Mass Index (BMI) 51.4 Finger Stick Blood Glucose 97 Intake and Output for Last 24 Hours 06/25/18 06/26/18 06/27/18 23:59 23:59 23:59 Intake Total 3100 / 3100 981 / 981 Output Total 150 / 150 900 / 900 Balance 2950 / 2950 81 / 81 Microbiology Past 72 Hours 06/26/18 11:53 Gram Stain - Final Biopsy - Other Laboratory Tests Past 24 Hrs 06/27/18 06/27/18 05:30 05:30 WBC 15.0 H RBC 4.51 Hgb 11.5 L Hct 38.1 MCV 84.5 MCH 25.5 L MCHC 30.2 L RDW 21.9 H RDW Differential 65.3 H Plt Count 304 MPV 10.4 Differential Comment SCAN Sodium 137 Potassium 4.8 Chloride 104 Carbon Dioxide 26.0 Anion Gap 7 BUN 25 H Creatinine 1.33 H Estim Creat Clear Calc 32.25 Est GFR (MDRD) Af Amer 52 L Est GFR (MDRD) Non-Af 43 L BUN/Creatinine Ratio 18.8 Glucose 183 H Calcium 8.5 Medical Necessity - Tobacco Use Smoking Status: Never smoker Assessment/Plan All Active Problems (Last Reviewed 07/02/17 @ 14:45 by Hal Metzger) History of knee replacement (Resolved) History of heart artery stent (Resolved) H/O arthroscopy of right knee (Resolved) UTI (urinary tract infection) (Acute) Metabolic encephalopathy (Acute) 1. S/P right revision total knee arthroplasty POD #1 2. Continue Pain Medications: Tylenol and OxyIR 3. DVT Prophylaxis: Aspirin 81 mg twice daily for DVT prophylaxis 4 weeks postoperatively 4. PT/OT: Weightbearing as tolerated 5. H & H: 11.5/38.1, asymptomatic 6. Reactive leukocytosis: Currently 15.0, afebrile. Patient did receive Decadron intraoperatively. 7. Encouraged Incentive Spirometry 8. Continue postoperative medical management per medicine: Patient currently requiring 6 L of nasal O2. Patient has had significant problems and prior surgeries. Per patient I do not feel she has ever followed up with pulmonology with regards to this. Case was discussed with hospitalist and he will evaluate patient today for further treatment. 9. Disposition: Patient wishes to try to go home when medically stable. However at this time patient is not ready for discharge due to the pulmonary problem.
--- NOTE | 2018-06-27 10:04 | CT_ITS ---
STUDY: CTA CHEST REASON FOR EXAM: Female, 62 years old. Hypoxia, knee replacement RADIATION DOSAGE (If Supplied By Facility): CTDIvol = ( 10.29 ) mGy, DLP = ( 546.98 ) mGycm TECHNIQUE: The examination was performed with the intravenous administration of Isovue 370 100 IV. Post-processing of the angiographic images was performed, with multiplanar reformation and 3D reconstruction. Individualized dose optimization techniques were used for this CT. COMPARISON: None. FINDINGS: Normal enhancement of the main pulmonary artery and right and left pulmonary arteries. Normal enhancement of the bilateral peripheral pulmonary arteries. There is no demonstrated pulmonary embolism. There are small bilateral pleural effusions, left greater than right. There is diffuse interlobular septal thickening and scattered groundglass parenchymal attenuation in keeping with diffuse pulmonary edema. There is mild aortic and branch vessel atherosclerotic disease. There is no demonstrated aortic dissection. Normal heart and pericardium. There are coronary artery calcifications. No mediastinal, axillary or bulky hilar adenopathy. Normal visualized trachea and bronchi. Normal chest wall structures. There are degenerative changes of the spine. There are chronic, healed right lateral rib fractures. There is a right renal upper pole lesion which measures greater than fluid attenuation measuring 1.9 cm. There is a right renal midpole lesion which is partially visualized and there is questionable peripheral enhancement. There is diffuse fatty infiltration of the liver. CT/CTA Chest W/WO Contrast IMPRESSION: 1. No pulmonary embolism or arterial dissection. 2. Marked diffuse pulmonary edema and small bilateral pleural effusions effusions are in keeping with acute CHF exacerbation. 3. There is a right renal upper pole lesion measuring greater than fluid attenuation and a partially visualized right renal midpole lesion with questionable peripheral enhancement. CT with and without intravenous contrast, renal protocol or MR abdomen with IV contrast can be obtained for further characterization of these lesions. Electronically Signed: Rajinder Nelson, at 11:32 EDT Tel , Service support ,
[2018-06-27 11:02] LABS: BNP,B-Type NATRIURETIC PEPTIDE 20.6 pg/mL (0-100)
[2018-06-27] MEDS: DULoxetine Hcl 60 MG Capsule PO (11:10)
[2018-06-27] MEDS: Aspirin 81 MG TAB.CHEW PO ×2 (11:10→15:42)
[2018-06-27] MEDS: Ferrous Sulfate 325 MG Tablet PO ×2 (11:10→15:42)
[2018-06-27] MEDS: Folic Acid 1 MG Tablet PO (11:12)
[2018-06-27] MEDS: amLODIPine 10 MG Tablet PO (11:12)
[2018-06-27] MEDS: Sertraline 50 MG Tablet 100 MG PO (11:12)
[2018-06-27] MEDS: Metoprolol Tartrate 25 MG Tablet PO ×2 (11:12→21:07)
[2018-06-27] MEDS: Senna/Docusate Sodium 1 Tablet 2 TABLET PO ×2 (11:12→21:02)
[2018-06-27] MEDS: Famotidine 20 MG Tablet PO (11:12)
[2018-06-27] MEDS: Doxycycline 100 MG CAPSULE PO ×2 (11:19→21:07)
[2018-06-27] MEDS: Glucerna Shake 120 ML LIQUID PO (11:24)
--- NOTE | 2018-06-27 13:55 | CASEMGMT ---
[facility]OO[facility] CEE Face to Face with patient for initial transition planning/care coordination assessment. RN COLEMAN introduced self and role at [facility]. Patient sitting in chair, alert and oriented, at bedside. Patient willing to participate in assessment and is able to answer all questions appropriately. Care providers, pharmacy, and demographics verified. Patient wishes to discharge home and would like [facility] for therapy with [facility]. BROOKS CEE sent referral to [facility] and awaiting call back. Patient states she has no further needs or concerns at this time. CM to follow for discharge planning needs that may arise. PCP: Amisha Specialists: [facility] Preferred Pharmacy: [facility] Insurance: [employer] Prescription Benefit: yes Living Will/HPOA: yes, junaid Flores LNOK: Living Arrangements: Patient lives with in 1 story home. Patient states she is independent with self care. Transportation: DME/HHC: Patient states she has walker and wheelchair at home. Denies home oxygen, nebulizer, cpap, or bipap. Will monitor for home oxygen. Preferred DME is [facility]. Has had [facility] in the past. Disposition Plan: Patient to discharge home with C, family support, and follow-up plans in place. Jaymie MORRIS, RN, CM
[2018-06-27] MEDS: Furosemide 40 MG/4 ML Vial IV (15:42)
--- NOTE | 2018-06-27 16:46 | PCM.PROGNOTE ---
Subjective: Patient was seen and examined today, I talked briefly with orthopedic surgery about her care, she is currently on 6 L of oxygen via nasal cannula, patient does not complain of any shortness of breath, she was not on any home oxygen before her surgery. I obtained a CTA of her chest today which did not show evidence of pulmonary embolism, it did show evidence of bilateral congestive changes which may indicate diastolic congestive heart failure. Patient does have a history of pulmonary hypertension. Patient had a stress echocardiogram performed in 2017 which showed a preserved ejection fraction. Patient has a history of coronary artery disease with stent placement in the past. - Physical Exam General: Alert, Oriented x3, Cooperative, No apparent distress, Well developed HEENT: Atraumatic, PERRLA, EOMI, Normocephalic Oral: Moist Mucosa Neck: Supple, Trachea Midline, Thyroid Normal Size and Texture Lungs: Normal air movement, Rhonchi - Scattered expiratory rhonchi are noted bilaterally Cardiovascular: Regular rate, No murmurs Abdomen: Bowel Sounds Present, Soft, Non Tender Extremities: No clubbing, No cyanosis, Capillary Refill Less than 3 Seconds Skin: No rashes, No breakdown Neurological: Cranial nerves II-XII grossly intact, Neuro grossly intact, Sensory exam intact to light touch and pain, Coordination normal Psych/Mental Status: Normal Affect, Appropriate, Alert and oriented to time, place, person, mood and affect Vital Signs Temp Pulse Resp BP Pulse Ox 98.8 F 79 18 120/71 97 06/27/18 14:00 06/27/18 14:55 06/27/18 14:55 06/27/18 14:00 06/27/18 14:00 Oxygen Flow Rate (L/min) 6 Oxygen Delivery Method Nasal Cannula Weight: 123.4 kg Body Mass Index (BMI) 51.4 Finger Stick Blood Glucose 97 Intake and Output for Last 24 Hours 06/25/18 06/26/18 06/27/18 23:59 23:59 23:59 Intake Total 3100 / 3100 1341 / 1341 Output Total 150 / 150 1450 / 1450 Balance 2950 / 2950 -109 / -109 Microbiology Past 72 Hours 06/26/18 07:25 Nasal Screen MRSA/MSSA - Final Swab (Method) 06/26/18 11:53 Gram Stain - Final Biopsy - Other Wound Culture - Preliminary No growth-Final to follow 06/26/18 11:53 Gram Stain - Final Biopsy - Other Wound Culture - Preliminary No growth-Final to follow 06/26/18 11:53 Gram Stain - Final Biopsy - Other Wound Culture - Preliminary No growth-Final to follow 06/26/18 11:53 Gram Stain - Final Tissue - Other Wound Culture - Preliminary No growth-Final to follow 06/26/18 11:53 Gram Stain - Final Tissue - Other Wound Culture - Preliminary No growth-Final to follow Laboratory Tests Past 24 Hrs 06/27/18 06/27/18 06/27/18 05:30 05:30 05:30 WBC 15.0 H RBC 4.51 Hgb 11.5 L Hct 38.1 MCV 84.5 MCH 25.5 L MCHC 30.2 L RDW 21.9 H RDW Differential 65.3 H Plt Count 304 MPV 10.4 Differential Comment SCAN Sodium 137 Potassium 4.8 Chloride 104 Carbon Dioxide 26.0 Anion Gap 7 BUN 25 H Creatinine 1.33 H Estim Creat Clear Calc 32.25 Est GFR (MDRD) Af Amer 52 L Est GFR (MDRD) Non-Af 43 L BUN/Creatinine Ratio 18.8 Glucose 183 H Calcium 8.5 B-Natriuretic Peptide 20.6 Medical Necessity - Tobacco Use Smoking Status: Never smoker Assessment/Plan All Active Problems (Last Reviewed 07/02/17 @ 14:45 by Hal Metzger) History of knee replacement (Resolved) History of heart artery stent (Resolved) H/O arthroscopy of right knee (Resolved) UTI (urinary tract infection) (Acute) Metabolic encephalopathy (Acute) #1 hypoxia-probably secondary to diastolic congestive heart failure, patient will have an echocardiogram performed tomorrow, I have placed her on IV Lasix and will attempt to wean her oxygen. 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
--- NOTE | 2018-06-27 17:08 | ECHOCS_ITS ---
Reason For Study: CAD/ASHD Procedure This was a 2D Doppler, Color Flow transthoracic echocardiogram. The study was technically difficult. Contrast injection was performed. Exam performed portable in patient room. Left Ventricle Normal LV size. Left ventricular systolic function is hyperdynamic. The estimated ejection fraction is 65 %. Stage 1 diastolic dysfunction. No regional wall motion abnormalities noted. Right Ventricle Normal RV size. Normal systolic function. Atria Normal left atrium. Normal right atrium. Mitral Valve Mitral valve not well visualized. Tricuspid Valve The tricuspid valve is not well visualized. Aortic Valve The aortic valve is not well visualized. Pulmonic Valve The pulmonic valve is not well visualized. Great Vessels Normal aortic root. The pulmonary artery is normal size. Normal inferior vena cava. Pericardium/Pleural No pericardial effusion. Small left pleural effusion. Medication Diluted definity 2ml given slow IV push to enhance endocardial definition. MMode/2D Measurements & Calculations RVDd: 4.1 cm LVOT diam: 2.0 cm Ao root diam: 2.9 cm LVOT area: 3.0 cm2 LAV(MOD-bp): 25.3 ml SV(MOD-sp4): 70.2 ml LVAd ap4: 30.4 cm2 LAV(MOD-bp) Indexed: 11.8 ml/m2 EDV(MOD-sp4): 91.3 ml LAV(MOD-sp2): 24.1 ml EDV(sp4-el): 97.1 ml LAV(MOD-sp4): 21.4 ml LVAs ap4: 12.3 cm2 ESV(MOD-sp4): 21.1 ml ESV(sp4-el): 20.1 ml EF(MOD-sp4): 76.9 % EF(sp4-el): 79.3 % SV(sp4-el): 77.0 ml LA dimension(2D): 3.4 cm LA A4 area: 10.6 cm2 RA A4 area: 9.0 cm2 Doppler Measurements & Calculations MV E max owen: 75.3 cm/sec Lat Peak E' Owen: 6.6 cm/sec Med Peak E' Owen: 6.8 cm/sec MV A max owen: 78.5 cm/sec E/E' lat: 11.4 E/E' med: 11.0 MV E/A: 0.96 Ao V2 max: 219.6 cm/sec LV V1 max: 151.6 cm/sec SV(LVOT): 96.1 ml Ao max P.3 mmHg LV V1 max P.2 mmHg Ao V2 mean: 163.8 cm/sec LV V1 mean P.2 mmHg Ao mean P.6 mmHg LV V1 mean: 118.6 cm/sec Ao V2 VTI: 36.1 cm LV V1 VTI: 32.1 cm STEPHANIE(I,D): 2.7 cm2 STEPHANIE(V,D): 2.1 cm2 PA V2 max: 115.5 cm/sec Interpretation Summary Normal LV size. Left ventricular systolic function is hyperdynamic. The estimated ejection fraction is 65 %. Stage 1 diastolic dysfunction. Contrast injection was performed. Ordering Physician: August Peres Referring Physician: Sudheer Lion Performed By: Pauline Arriaga, DIANA, RVT
[2018-06-27] MEDS: ALPRAZolam 0.5 MG Tablet PO (21:01)
[2018-06-27] MEDS: Pramipexole Di-HCl 1 MG Tablet PO (21:02)
[2018-06-27] MEDS: Furosemide 20 MG/2 ML VIAL IV (21:02)
[2018-06-27] MEDS: Atorvastatin Calcium 40 MG Tablet PO (21:07)
[2018-06-27] MEDS: Pantoprazole Sodium 40 MG Tablet PO (21:07)
[2018-06-27] MEDS: Clopidogrel Bisulfate 75 MG Tablet PO (21:08)
[2018-06-27] MEDS: Ketorolac 15 MG/ML Vial IV (21:08)
[2018-06-28] VITALS (17 sets, daily range): BP systolic 108–160; BP diastolic 63–78; PULSE 76–92; RESP 14–20; TEMP 36.6–36.9; O2SAT 91–95
[2018-06-28] MEDS: Ipratropium/Albuterol Sulfate 3 ML AMPUL.NEB INHALATION ×3 (02:37→14:24)
[2018-06-28] MEDS: oxyCODONE 5 MG Tablet PO ×3 (03:07→18:50)
[2018-06-28] MEDS: Acetaminophen 500 MG Tablet 1000 MG PO ×3 (06:08→21:02)
[2018-06-28] MEDS: Furosemide 20 MG/2 ML VIAL IV ×3 (06:08→21:02)
[2018-06-28] MEDS: 0.9% NaCl Peripheral Flush Adult/Peds IV (06:08)
[2018-06-28 06:16] LABS: Anion Gap 11 (5-15); BUN 34 mg/dL (7-18); BUN/Creat Ratio 28.6 RATIO (10-20); Calcium,Total 8.4 mg/dL (8.5-10.1); Chloride 104 mmol/L (98-107); Creatinine, Serum 1.19 mg/dL (0.55-1.02); EST Glomerular Filtration Rate 48 mL/min (>60); Est Glom Filt Rate - Afr Amer 59 mL/min (>60); Estimated Creatinine Clearance 36.04 ml/min; Glucose 153 mg/dL (74-106); Potassium 4.1 mmol/L (3.5-5.1); Sodium Level 137 mmol/L (136-145)
[2018-06-28 06:25] LABS: Hematocrit 35.4 % (37-47); Hemoglobin 11.2 g/dl (12.0-15.0); Mean Corp Hgb Conc 31.6 g/gl (32-36); Mean Corpuscular Hgb 26.1 pg (27.0-32.0); Mean Corpuscular Volume 82.5 fL (81-99); Mean Platelet Vol. 10.5 fl (6.2-12.0); Platelet Count 260 K/mm3 (150-450); RBC Distribution Width SD 64.9 fl (35.1-43.9); Red Blood Count 4.29 M/mm3 (4.2-5.4); White Blood Count 13.6 K/mm3 (4.4-11.0)
[2018-06-28 06:36] LABS: Scan Indicated on CBC? Y/N YES- FLAGS NOTED
[2018-06-28 07:03] LABS: Differential Comment SCAN
--- NOTE | 2018-06-28 07:04 | PCM.PN.ORT ---
Subjective: The patient was sitting in bedside chair upon examination. Patient denies any chest pain, dizziness, lightheadedness, nausea or vomiting, or calf pain. Patient states yesterday she was having increased pain in her postoperative right knee. The pain is better today. Pain is controlled on medications. No adverse overnight events. Patient does report some shortness of breath when she is up walking. Patient was worked up with a CTA of her chest to rule out pulmonary embolism. It was negative but did show bilateral congestive changes which may be indicative of diastolic congestive heart failure. Hospitalist has been on board and place patient on Lasix. Patient does have history of pulmonary hypertension. There is plan for echocardiogram today. Patient still is requiring 6.5 L oxygen. Patient was not using any oxygen while at home. Objective: Vital signs stable and afebrile. Patient is able to plantarflex and dorsiflex actively. Sensation is intact to light touch to saphenous, sural, superficial and deep peroneal, and tibial distribution. Dressing is clean dry and intact. Negative Homans bilaterally, negative signs and symptoms of DVT. - Physical Exam General: Alert, Oriented x3, Cooperative, No apparent distress Vital Signs Temp Pulse Resp BP Pulse Ox 98.2 F 82 18 145/63 H 95 06/28/18 02:57 06/28/18 03:59 06/28/18 03:00 06/28/18 02:57 06/28/18 03:00 Oxygen Flow Rate (L/min) 6.5 Oxygen Delivery Method Nasal Cannula Weight: 123.4 kg Body Mass Index (BMI) 51.4 Finger Stick Blood Glucose 97 Intake and Output for Last 24 Hours 06/26/18 06/27/18 06/28/18 23:59 23:59 23:59 Intake Total 3100 / 3100 1341 / 1341 405 / 405 Output Total 150 / 150 1450 / 1450 1200 / 1200 Balance 2950 / 2950 -109 / -109 -795 / -795 Microbiology Past 72 Hours 06/26/18 07:25 Nasal Screen MRSA/MSSA - Final Swab (Method) 06/26/18 11:53 Gram Stain - Final Biopsy - Other Wound Culture - Preliminary No growth-Final to follow 06/26/18 11:53 Gram Stain - Final Biopsy - Other Wound Culture - Preliminary No growth-Final to follow 06/26/18 11:53 Gram Stain - Final Biopsy - Other Wound Culture - Preliminary No growth-Final to follow 06/26/18 11:53 Gram Stain - Final Tissue - Other Wound Culture - Preliminary No growth-Final to follow 06/26/18 11:53 Gram Stain - Final Tissue - Other Wound Culture - Preliminary No growth-Final to follow Laboratory Tests Past 24 Hrs 06/27/18 06/27/18 06/28/18 05:30 05:30 05:30 WBC 13.6 H RBC 4.29 Hgb 11.2 L Hct 35.4 L MCV 82.5 MCH 26.1 L MCHC 31.6 L RDW 22.0 H RDW Differential 64.9 H Plt Count 260 MPV 10.5 Differential Comment SCAN SCAN Sodium Potassium Chloride Carbon Dioxide Anion Gap BUN Creatinine Estim Creat Clear Calc Est GFR (MDRD) Af Amer Est GFR (MDRD) Non-Af BUN/Creatinine Ratio Glucose Calcium B-Natriuretic Peptide 20.6 06/28/18 05:30 WBC RBC Hgb Hct MCV MCH MCHC RDW RDW Differential Plt Count MPV Differential Comment Sodium 137 Potassium 4.1 Chloride 104 Carbon Dioxide 22.0 Anion Gap 11 BUN 34 H Creatinine 1.19 H Estim Creat Clear Calc 36.04 Est GFR (MDRD) Af Amer 59 L Est GFR (MDRD) Non-Af 48 L BUN/Creatinine Ratio 28.6 H Glucose 153 H Calcium 8.4 L B-Natriuretic Peptide Medical Necessity - Tobacco Use Smoking Status: Never smoker Assessment/Plan All Active Problems (Last Reviewed 07/02/17 @ 14:45 by Hal Metzger) History of knee replacement (Resolved) History of heart artery stent (Resolved) H/O arthroscopy of right knee (Resolved) UTI (urinary tract infection) (Acute) Metabolic encephalopathy (Acute) 1. S/P right revision total knee arthroplasty POD #2 2. Continue Pain Medications: Tylenol and OxyIR 3. DVT Prophylaxis: Aspirin 81 mg twice daily for DVT prophylaxis 4 weeks postoperatively 4. PT/OT: Weightbearing as tolerated 5. H & H: 11.2/35.4, asymptomatic 6. Reactive leukocytosis: Currently 13.6, afebrile. Patient did receive Decadron intraoperatively. 7. Encouraged Incentive Spirometry 8. Hypoxia: Patient currently requiring 6.5 L of nasal O2. Patient has had significant problems and prior surgeries. 8. Continue postoperative medical management per medicine 9. Continue antibiotics while following cultures: Currently on doxycycline for 1 week postoperatively. No growth currently on cultures. 10. Disposition: Patient wishes to try to go home when medically stable. Medicine is on board trying to wean patient off oxygen. Patient has used the BiPAP overnight for several hours but still struggles to keep this on. We will continue with workup per medicine with possible discharge home today versus tomorrow. Postoperatively patient will be on aspirin 81 mg for 4 weeks. Continue with Tylenol and oxycodone at this time. She will also be on doxycycline for 1 week postoperatively while following cultures.
[2018-06-28] MEDS: Aspirin 81 MG TAB.CHEW PO ×2 (07:45→16:56)
[2018-06-28] MEDS: Ferrous Sulfate 325 MG Tablet PO ×2 (07:45→16:56)
[2018-06-28] MEDS: Folic Acid 1 MG Tablet PO (07:45)
[2018-06-28] MEDS: amLODIPine 10 MG Tablet PO (10:05)
[2018-06-28] MEDS: DULoxetine Hcl 60 MG Capsule PO (10:05)
[2018-06-28] MEDS: Senna/Docusate Sodium 1 Tablet 2 TABLET PO ×2 (10:05→21:02)
[2018-06-28] MEDS: Metoprolol Tartrate 25 MG Tablet PO ×2 (10:05→21:01)
[2018-06-28] MEDS: Famotidine 20 MG Tablet PO (10:05)
[2018-06-28] MEDS: Sertraline 50 MG Tablet 100 MG PO (10:05)
[2018-06-28] MEDS: Doxycycline 100 MG CAPSULE PO ×2 (10:08→21:02)
--- NOTE | 2018-06-28 11:23 | NURSING ---
echo in progress
[2018-06-28] MEDS: Glucerna Shake 120 ML LIQUID PO ×2 (12:02→16:56)
--- NOTE | 2018-06-28 17:05 | PCM.PROGNOTE ---
Subjective: Patient was seen and examined today, she has been weaned down to 4 L via nasal cannula today. Patient's echocardiogram showed a preserved ejection fraction. - Physical Exam General: Alert, Oriented x3, Cooperative, No apparent distress, Well developed HEENT: Atraumatic, PERRLA, EOMI, Normocephalic Oral: Moist Mucosa Neck: Supple, Trachea Midline, Thyroid Normal Size and Texture Lungs: Clear to auscultation, No rhonchi, No wheeze, No rales, Diminished Cardiovascular: Regular rate, Regular Rhythm, Normal S1, Normal S2, No murmurs, No Ectopic Activity, PMI Normal, No rub noted, No Gallop Abdomen: Bowel Sounds Present, Soft, Non Tender, Non-Distended Extremities: No clubbing, No cyanosis, No edema, Capillary Refill Less than 3 Seconds Skin: No rashes, No breakdown Musculoskeletal: No Tenderness to Palpation of Joints or Extremities Neurological: Cranial nerves II-XII grossly intact, Neuro grossly intact, Sensory exam intact to light touch and pain, Coordination normal Psych/Mental Status: Normal Affect, Appropriate, Alert and oriented to time, place, person, mood and affect Vital Signs Temp Pulse Resp BP Pulse Ox 98.1 F 86 20 H 108/64 94 06/28/18 13:57 06/28/18 15:46 06/28/18 14:24 06/28/18 13:57 06/28/18 13:57 Oxygen Flow Rate (L/min) 4 Oxygen Delivery Method Nasal Cannula Weight: 123.4 kg Body Mass Index (BMI) 51.4 Finger Stick Blood Glucose 97 Intake and Output for Last 24 Hours 06/26/18 06/27/18 06/28/18 23:59 23:59 23:59 Intake Total 3100 / 3100 1341 / 1341 1325 / 1325 Output Total 150 / 150 1450 / 1450 2250 / 2250 Balance 2950 / 2950 -109 / -109 -925 / -925 Microbiology Past 72 Hours 06/26/18 11:53 Gram Stain - Final Tissue - Other Wound Culture - Preliminary No growth-Final to follow Anaerobic Culture - Preliminary No growth in 48 hours. 06/26/18 11:53 Gram Stain - Final Biopsy - Other Wound Culture - Preliminary No growth-Final to follow Anaerobic Culture - Preliminary No growth in 48 hours. 06/26/18 11:53 Gram Stain - Final Biopsy - Other Wound Culture - Preliminary No growth-Final to follow Anaerobic Culture - Preliminary No growth in 48 hours. 06/26/18 11:53 Gram Stain - Final Biopsy - Other Wound Culture - Preliminary No growth-Final to follow Anaerobic Culture - Preliminary No growth in 48 hours. 06/26/18 07:25 Nasal Screen MRSA/MSSA - Final Swab (Method) 06/26/18 11:53 Gram Stain - Final Tissue - Other Wound Culture - Preliminary No growth-Final to follow Laboratory Tests Past 24 Hrs 06/28/18 06/28/18 05:30 05:30 WBC 13.6 H RBC 4.29 Hgb 11.2 L Hct 35.4 L MCV 82.5 MCH 26.1 L MCHC 31.6 L RDW 22.0 H RDW Differential 64.9 H Plt Count 260 MPV 10.5 Differential Comment SCAN Sodium 137 Potassium 4.1 Chloride 104 Carbon Dioxide 22.0 Anion Gap 11 BUN 34 H Creatinine 1.19 H Estim Creat Clear Calc 36.04 Est GFR (MDRD) Af Amer 59 L Est GFR (MDRD) Non-Af 48 L BUN/Creatinine Ratio 28.6 H Glucose 153 H Calcium 8.4 L Medical Necessity - Tobacco Use Smoking Status: Never smoker Assessment/Plan All Active Problems (Last Reviewed 07/02/17 @ 14:45 by Hal Metzger) History of knee replacement (Resolved) History of heart artery stent (Resolved) H/O arthroscopy of right knee (Resolved) UTI (urinary tract infection) (Acute) Metabolic encephalopathy (Acute) #1 hypoxia-probably secondary to diastolic congestive heart failure, continue IV Lasix, I do not feel the patient needs aerosol treatments I will discontinue them #2 acute diastolic congestive heart failure-on IV Lasix #3 coronary artery disease-stable at this time #4 pulmonary hypertension-by history, echocardiogram did not visualize the pulmonary artery well #5 essential hypertension #6 morbid obesity #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
[2018-06-28 17:46] LABS: Hemoglobin A1c 7.1 % (4.2-6.3)
[2018-06-28] MEDS: Clopidogrel Bisulfate 75 MG Tablet PO (21:02)
[2018-06-28] MEDS: Pramipexole Di-HCl 1 MG Tablet PO (21:02)
[2018-06-28] MEDS: Atorvastatin Calcium 40 MG Tablet PO (21:02)
[2018-06-28] MEDS: Pantoprazole Sodium 40 MG Tablet PO (21:02)
[2018-06-28] MEDS: Ondansetron 4 MG/2 ML Vial IV (22:52)
[2018-06-29] VITALS (14 sets, daily range): BP systolic 152–171; BP diastolic 68–85; PULSE 76–96; RESP 12–26; TEMP 36.4–37; O2SAT 84–97
[2018-06-29] MEDS: Acetaminophen 500 MG Tablet 1000 MG PO ×2 (06:25→14:00)
[2018-06-29] MEDS: Furosemide 20 MG/2 ML VIAL IV (06:26)
--- NOTE | 2018-06-29 07:13 | PN.ORTHO_ITS ---
Subjective: The patient was sitting in bedside chair upon examination. Patient denies any chest pain, dizziness, lightheadedness, nausea or vomiting, or calf pain. Pain is controlled on medications. No adverse overnight events. Patient is currently on 4 L of oxygen. Patient states her pain is doing well in the right knee. Discussion with the hospitalist is for plan for discharge home today with oxygen and follow-up with the primary care physician next week. Echocardiogram was performed yesterday which showed a preserved ejection fraction. Objective: Vital signs stable and afebrile. Patient is able to plantarflex and dorsiflex actively. Sensation is intact to light touch to saphenous, sural, superficial and deep peroneal, and tibial distribution. Dressing is with stable drainage over the middle one third Negative Homans bilaterally, negative signs and symptoms of DVT. - Physical Exam General: Alert, Oriented x3, Cooperative, No apparent distress Vital Signs Temp Pulse Resp BP Pulse Ox 97.5 F L 77 18 152/85 H 95 06/29/18 02:08 06/29/18 03:20 06/29/18 02:08 06/29/18 02:08 06/29/18 02:08 Oxygen Flow Rate (L/min) 4 Oxygen Delivery Method Nasal Cannula Weight: 123.4 kg Body Mass Index (BMI) 51.4 Finger Stick Blood Glucose 97 Intake and Output for Last 24 Hours 06/27/18 06/28/18 06/29/18 23:59 23:59 23:59 Intake Total 1341 / 1341 1325 / 1325 640 / 640 Output Total 1450 / 1450 2250 / 2250 825 / 825 Balance -109 / -109 -925 / -925 -185 / -185 Microbiology Past 72 Hours 06/26/18 11:53 Gram Stain - Final Tissue - Other Wound Culture - Preliminary No growth-Final to follow Anaerobic Culture - Preliminary No growth in 48 hours. 06/26/18 11:53 Gram Stain - Final Biopsy - Other Wound Culture - Preliminary No growth-Final to follow Anaerobic Culture - Preliminary No growth in 48 hours. 06/26/18 11:53 Gram Stain - Final Biopsy - Other Wound Culture - Preliminary No growth-Final to follow Anaerobic Culture - Preliminary No growth in 48 hours. 06/26/18 11:53 Gram Stain - Final Biopsy - Other Wound Culture - Preliminary No growth-Final to follow Anaerobic Culture - Preliminary No growth in 48 hours. 06/26/18 07:25 Nasal Screen MRSA/MSSA - Final Swab (Method) 06/26/18 11:53 Gram Stain - Final Tissue - Other Wound Culture - Preliminary No growth-Final to follow Laboratory Tests Past 24 Hrs 06/28/18 06/29/18 05:30 06:30 WBC Pending RBC Pending Hgb Pending Hct Pending MCV Pending MCH Pending MCHC Pending RDW Pending RDW Differential Pending Plt Count Pending Hemoglobin A1c 7.1 H Medical Necessity - Tobacco Use Smoking Status: Never smoker Assessment/Plan All Active Problems (Last Reviewed 07/02/17 @ 14:45 by Hal Metzger) History of knee replacement (Resolved) History of heart artery stent (Resolved) H/O arthroscopy of right knee (Resolved) UTI (urinary tract infection) (Acute) Metabolic encephalopathy (Acute) 1. S/P right revision total knee arthroplasty POD #3 2. Continue Pain Medications: Tylenol and OxyIR 3. DVT Prophylaxis: Aspirin 81 mg twice daily for DVT prophylaxis 4 weeks postoperatively 4. PT/OT: Weightbearing as tolerated 5. H & H: Lab work pending 6. Reactive leukocytosis: Lab work pending yesterday was 13.6, afebrile. Patient did receive Decadron intraoperatively. 7. Encouraged Incentive Spirometry 8. Hypoxia: Patient currently requiring 4 L of nasal O2. 8. Continue postoperative medical management per medicine 9. Continue antibiotics while following cultures: Currently on doxycycline for 1 week postoperatively. No growth currently on cultures. 10. Disposition: Patient wishes to try to go home when medically stable. Medicine is on board trying to wean patient off oxygen. Patient has used the Bi PAP overnight for several hours but still struggles to keep this on. We will continue with workup per medicine with possible discharge home today. Postoperatively patient will be on aspirin 81 mg for 4 weeks for DVT prophylaxis. Continue with Tylenol and oxycodone at this time for pain control. She will also be on doxycycline for 1 week postoperatively while following cultures.
--- NOTE | 2018-06-29 07:16 | DCINST_ITS ---
Discharge Activity: May Not Drive May shower in (days): 2 Ice area for (Minutes): 20 - every hour while awake. Weight Bearing Status: Weight bearing as tolerated - With walker Elevate: Operative Extremity Additional Activity Instructions:: Wear elastic stockings for 2 weeks after your surgery. Call your doctor if your incision/area has: Continuous Slow Oozing, Sudden Increased Bleeding, Increased Pain/ Swelling, Increased Redness, Foul Smelling Discharge Call your doctor if you observe: Fever of 101 or Higher, Coldness, Increased Pain, Numbness or Tingling, Change in Color, Calf discomfort, Uncontrolled pain Remove Dressing in (days):: 2 - Okay to remove dressing on July 01, 2018 Additional Instructions: Follow-up with [facility] 2 weeks postoperatively Allergies/Adverse Reactions: Allergies ciprofloxacin [From Cipro] Allergy (Verified 06/26/18 07:48) Unknown escitalopram oxalate [From Lexapro] Allergy (Verified 06/26/18 07:48) Unknown heparin Allergy (Verified 06/26/18 07:48) Unknown mupirocin [From Bactroban] Allergy (Verified 06/26/18 07:48) Unknown trazodone Allergy (Verified 06/26/18 07:48) Unknown adhesive tape Adverse Reaction (Verified 06/26/18 07:48) Other Medications to take at Discharge Clopidogrel Bisulfate [Plavix] 75 mg PO QHS 08/25/15 Sertraline HCl [Zoloft] 100 mg PO DAILY 08/25/15 Atorvastatin Calcium [Lipitor] 40 mg PO QHS 01/27/16 Pantoprazole Sodium [Protonix] 40 mg PO QHS 01/27/16 amlodipine 10 mg tablet 10 mg PO QDAY #90 tab 06/25/17 Pramipexole Di-HCl [Mirapex] 1 mg PO QHS 06/29/17 ALPRAZolam [Xanax] 1 mg PO BID 07/05/17 Aspirin [Aspirin, Baby] 81 mg PO DAILY 07/05/17 Duloxetine HCl 60 mg PO DAILY 07/05/17 ranitidine 150 mg tablet 150 mg PO QDAY 10/31/17 metoprolol tartrate 25 mg tablet 25 mg PO BID #180 tab 11/05/17 Lisinopril 20 mg PO BID 04/22/18 ferrous sulfate 325 mg (65 mg iron) tablet 1 tab PO BID 30 Days #60 tab 04/29/18 folic acid 1 mg tablet 1 tab PO DAILY 45 Days #45 tab 04/29/18 Orders to be completed after discharge: Partial Thromboplast Time Time Frame: 06/26/18, Location: Laboratory Prothrombin Time w/INR Time Frame: 06/26/18, Location: Laboratory Primary Care Physician: Sudheer Lion MD [Primary Care Provider] - Test Results: Test results from this visit will be discussed in further detail at your follow- up appointment, if applicable. Please Follow Up With: Shailesh Rangel PA-C When: 2 weeks post-op @ [facility]
[2018-06-29 07:49] LABS: Hematocrit 36.4 % (37-47); Hemoglobin 11.2 g/dl (12.0-15.0); Mean Corp Hgb Conc 30.8 g/gl (32-36); Mean Corpuscular Hgb 25.8 pg (27.0-32.0); Mean Corpuscular Volume 83.9 fL (81-99); Mean Platelet Vol. 10.4 fl (6.2-12.0); Platelet Count 275 K/mm3 (150-450); RBC Distribution Width CV 22.1 % (11.6-14.6); RBC Distribution Width SD 65.2 fl (35.1-43.9); Red Blood Count 4.34 M/mm3 (4.2-5.4); White Blood Count 13.2 K/mm3 (4.4-11.0)
[2018-06-29 07:57] LABS: Scan Indicated on CBC? Y/N YES- FLAGS NOTED
[2018-06-29] MEDS: Ondansetron 4 MG/2 ML Vial IV (09:18)
[2018-06-29] MEDS: Glucerna Shake 120 ML LIQUID PO (09:18)
[2018-06-29] MEDS: 0.9% NaCl Peripheral Flush Adult/Peds IV (09:18)
[2018-06-29] MEDS: Aspirin 81 MG TAB.CHEW PO (09:20)
[2018-06-29] MEDS: Sertraline 50 MG Tablet 100 MG PO (09:21)
[2018-06-29] MEDS: Folic Acid 1 MG Tablet PO (09:21)
[2018-06-29] MEDS: Metoprolol Tartrate 25 MG Tablet PO (09:21)
[2018-06-29] MEDS: DULoxetine Hcl 60 MG Capsule PO (09:21)
[2018-06-29] MEDS: Doxycycline 100 MG CAPSULE PO (09:22)
[2018-06-29] MEDS: Ferrous Sulfate 325 MG Tablet PO (09:22)
[2018-06-29] MEDS: Famotidine 20 MG Tablet PO (09:23)
[2018-06-29] MEDS: amLODIPine 10 MG Tablet PO (09:23)
[2018-06-29] MEDS: oxyCODONE 5 MG Tablet PO (10:28)
--- NOTE | 2018-06-29 11:26 | CM.UR ---
Patient to be discharged today. Unable to wean beyond 3 liters per nc. Finished prepping the o2 documentation and faxed to [facility] at [phone]. Currently trying to call the answering service but have been having a long wait time. Spoke with Diana Elder at [facility] to alert to dc. States she is on their schedule for Sunday. Jeff Licea RN, [facility].
--- NOTE | 2018-06-29 11:33 | PCM.DC ---
You will use the following diet at home:: Calorie/Carbohydrate Controlled (specify 1200, 1400, etc) - no concentrated sugars Your food should be the consistency of: Regular Your liquids should be the consistency of: Regular/Thin Discharge Activity: May Not Drive May shower in (days): 2 Ice area for (Minutes): 20 - every hour while awake. Weight Bearing Status: Weight bearing as tolerated - With walker Keep extremity elevated above heart level: Operative Extremity Additional Activity Instructions:: Wear elastic stockings for 2 weeks after your surgery. Call your doctor if your incision/area has: Continuous Slow Oozing, Sudden Increased Bleeding, Increased Pain/ Swelling, Increased Redness, Foul Smelling Discharge Call your doctor if you observe: Fever of 101 or Higher, Coldness, Increased Pain, Numbness or Tingling, Change in Color, Calf discomfort, Uncontrolled pain Remove Dressing in (days):: 2 - Okay to remove dressing on July 01, 2018 Allergies/Adverse Reactions: Allergies ciprofloxacin [From Cipro] Allergy (Verified 06/26/18 07:48) Unknown escitalopram oxalate [From Lexapro] Allergy (Verified 06/26/18 07:48) Unknown heparin Allergy (Verified 06/26/18 07:48) Unknown mupirocin [From Bactroban] Allergy (Verified 06/26/18 07:48) Unknown trazodone Allergy (Verified 06/26/18 07:48) Unknown adhesive tape Adverse Reaction (Verified 06/26/18 07:48) Other Medications to take at Discharge Clopidogrel Bisulfate [Plavix] 75 mg PO QHS 08/25/15 Sertraline HCl [Zoloft] 100 mg PO DAILY 08/25/15 Atorvastatin Calcium [Lipitor] 40 mg PO QHS 01/27/16 Pantoprazole Sodium [Protonix] 40 mg PO QHS 01/27/16 amlodipine 10 mg tablet 10 mg PO QDAY #90 tab 06/25/17 Pramipexole Di-HCl [Mirapex] 1 mg PO QHS 06/29/17 ALPRAZolam [Xanax] 1 mg PO BID 07/05/17 Duloxetine HCl 60 mg PO DAILY 07/05/17 ranitidine 150 mg tablet 150 mg PO QDAY 10/31/17 metoprolol tartrate 25 mg tablet 25 mg PO BID #180 tab 11/05/17 ferrous sulfate 325 mg (65 mg iron) tablet 1 tab PO BID 30 Days #60 tab 04/29/18 folic acid 1 mg tablet 1 tab PO DAILY 45 Days #45 tab 04/29/18 Aspirin [Aspirin, Baby] 81 mg PO BIDCM tab.chew 06/29/18 Doxycycline 100 mg PO BID capsule 06/29/18 Furosemide [Lasix] 40 mg PO DAILY #30 tablet 06/29/18 Lisinopril 20 mg PO DAILY #1 tablet 06/29/18 Metformin HCl 500 mg PO BIDCM #60 tablet 06/29/18 Oxycodone [Oxyir] 5 - 10 mg PO Q4H PRN PRN 7 Days #20 tablet 06/29/18 Potassium Chloride [K-Dur] 20 meq PO DAILY #30 tablet 06/29/18 The following prescriptions were given: Oxycodone [Oxyir] 5 - 10 mg PO Q4H PRN PRN 7 Days #20 tablet PRN Reason: Mod-Severe Pain (-01/16) Furosemide [Lasix] 40 mg PO DAILY #30 tablet Lisinopril 20 mg PO DAILY #1 tablet Potassium Chloride [K-Dur] 20 meq PO DAILY #30 tablet Metformin HCl 500 mg PO BIDCM #60 tablet Orders to be completed after discharge: Partial Thromboplast Time Time Frame: 06/26/18, Location: Laboratory Prothrombin Time w/INR Time Frame: 06/26/18, Location: Laboratory Primary Care Physician: Sudheer Lion MD [Primary Care Provider] - Please follow up with your Primary Care Physician in: this week Test Results: Test results from this visit will be discussed in further detail at your follow-up appointment, if applicable. Please Follow Up With: Shailesh Rangel PA-C When: 2 weeks post-op @ [facility]
--- NOTE | 2018-07-02 15:58 | PCM.DC.SUM ---
Discharge Date and Diagnosis Date of Admission: 06/26/18 Date of Discharge: 06/29/18 - Primary Discharge Diagnosis painful right total knee a - Secondary Discharge Diagnosis Chronic Problems (Last Reviewed 07/02/17 @ 14:45 by Hal Metzger) Pre-operative cardiovascular examination (Chronic) Sleep-disordered breathing (Chronic) Nocturnal hypoxemia (Chronic) Pulmonary hypertension (Chronic) Suicide attempt by drug ingestion (Chronic) Depression (Chronic) Anxiety (Chronic) Insomnia (Chronic) Coronary artery disease (Chronic) Morbid obesity (Chronic) Right sided cerebral infarction (Chronic) Hypertension (Chronic) Hyperlipidemia (Chronic) Hospital Course and Treatment Operations: None, total knee replacement Summary of Care Provided: Patient is a 62-year-old female who has history of a previous right total knee arthroplasty on June 19, 2017. Patient presented to the office with instability of the right knee in flexion and extension contributing to her frequent falls. After failing conservative measures, the patient opted to proceed with a revision total knee replacement. The patient underwent the above-stated procedure on June 26, 2018. Patient did receive perioperative antibiotics. Intraoperatively was uneventful. For details please see dictated operative note. The patient was placed in thigh-high teds, bilateral SCDs, remained stable in recovery. Patient was admitted to the 3rd floor at [facility]. The patient's pain was managed with the use of IV and p.o. pain medications. Patient participated in physical therapy. Patient had hypoxia postoperatively which required her to be placed on oxygen. Patient also underwent CTA of her chest which was negative for pulmonary embolism. It did show bilateral congestive changes indicative of bed systolic congestive heart failure. Patient also had history of pulmonary hypertension. Patient did undergo an echocardiogram while in the hospital. Echocardiogram showed preserved ejection fraction. Patient was discharged on postoperative day #3 to home. Patient was given medications stated below. Patient will follow up with [facility] per postop instructions for reassessment. Patient is going to be scheduled to follow-up with her primary care physician for lab work as well as weaning off of the oxygen and further workup for her episodes of hypoxia. Patient had a previous episode of hypoxia and requiring oxygen from previous surgery one year ago as well. - Physical Exam Vital Signs Temp Pulse Resp BP Pulse Ox 98.6 F 76 14 171/80 H 96 06/29/18 13:00 06/29/18 13:00 06/29/18 13:00 06/29/18 13:00 06/29/18 13:00 Oxygen Flow Rate (L/min) [ 3 AMBULATION with Oxygen] Oxygen Flow Rate (L/min) 3 Oxygen Delivery Method Nasal Cannula Weight: 123.4 kg Body Mass Index (BMI) 51.4 Finger Stick Blood Glucose 97 Microbiology Past 72 Hours 06/26/18 11:53 Gram Stain - Final Biopsy - Other Wound Culture - Final No growth aerobically. Anaerobic Culture - Final No growth in 5 days. 06/26/18 11:53 Gram Stain - Final Biopsy - Other Wound Culture - Final No growth aerobically. Anaerobic Culture - Final No growth in 5 days. 06/26/18 11:53 Gram Stain - Final Biopsy - Other Wound Culture - Final No growth aerobically. Anaerobic Culture - Final No growth in 5 days. 06/26/18 11:53 Gram Stain - Final Tissue - Other Wound Culture - Final No growth aerobically. Anaerobic Culture - Final No growth in 5 days. 06/26/18 11:53 Gram Stain - Final Tissue - Other Wound Culture - Final No growth aerobically. Anaerobic Culture - Final No growth in 5 days. Discharge Activity: May Not Drive May shower in (days): 2 Ice area for (Minutes): 20 - every hour while awake. Weight Bearing Status: Weight bearing as tolerated - With walker Keep extremity elevated above heart level: Operative Extremity Additional Activity Instructions:: Wear elastic stockings for 2 weeks after your surgery. Call your doctor if your incision/area has: Continuous Slow Oozing, Sudden Increased Bleeding, Increased Pain/ Swelling, Increased Redness, Foul Smelling Discharge Call your doctor if you observe: Fever of 101 or Higher, Coldness, Increased Pain, Numbness or Tingling, Change in Color, Calf discomfort, Uncontrolled pain Remove Dressing in (days):: 2 - Okay to remove dressing on July 01, 2018 Home Medications: Medications to take at Discharge Clopidogrel Bisulfate [Plavix] 75 mg PO QHS 08/25/15 Sertraline HCl [Zoloft] 100 mg PO DAILY 08/25/15 Atorvastatin Calcium [Lipitor] 40 mg PO QHS 01/27/16 Pantoprazole Sodium [Protonix] 40 mg PO QHS 01/27/16 amlodipine 10 mg tablet 10 mg PO QDAY #90 tab 06/25/17 Pramipexole Di-HCl [Mirapex] 1 mg PO QHS 06/29/17 ALPRAZolam [Xanax] 1 mg PO BID 07/05/17 Duloxetine HCl 60 mg PO DAILY 07/05/17 ranitidine 150 mg tablet 150 mg PO QDAY 10/31/17 metoprolol tartrate 25 mg tablet 25 mg PO BID #180 tab 11/05/17 ferrous sulfate 325 mg (65 mg iron) tablet 1 tab PO BID 30 Days #60 tab 04/29/18 folic acid 1 mg tablet 1 tab PO DAILY 45 Days #45 tab 04/29/18 Aspirin [Aspirin, Baby] 81 mg PO BIDCM tab.chew 06/29/18 Doxycycline 100 mg PO BID capsule 06/29/18 Furosemide [Lasix] 40 mg PO DAILY #30 tablet 06/29/18 Lisinopril 20 mg PO DAILY #1 tablet 06/29/18 Metformin HCl 500 mg PO BIDCM #60 tablet 06/29/18 Oxycodone [Oxyir] 5 - 10 mg PO Q4H PRN PRN 7 Days #20 tablet 06/29/18 Potassium Chloride [K-Dur] 20 meq PO DAILY #30 tablet 06/29/18 Following Prescrptions Were Given to Patient: Oxycodone [Oxyir] 5 - 10 mg PO Q4H PRN PRN 7 Days #20 tablet PRN Reason: Mod-Severe Pain (-01/16) Furosemide [Lasix] 40 mg PO DAILY #30 tablet Lisinopril 20 mg PO DAILY #1 tablet Potassium Chloride [K-Dur] 20 meq PO DAILY #30 tablet Metformin HCl 500 mg PO BIDCM #60 tablet Other Amb Orders: Partial Thromboplast Time Time Frame: 06/26/18, Location: Laboratory Prothrombin Time w/INR Time Frame: 06/26/18, Location: Laboratory Primary Care Physician: Sudheer Lion MD [Primary Care Provider] - Please follow up with your Primary Care Physician in: this week Please Follow Up With: Shailesh Rangel PA-C When: 2 weeks post-op @ [facility] Additional Instructions: Follow-up with [facility] 2 weeks postoperatively Medical Necessity - Tobacco Use Smoking Status: Never smoker Meaningful Use Info Meaningful Use Diagnoses (Choose all that apply): None applicable
== END 2018-06-29 15:00 | disposition home health service (06) | DRG 466 ==
PROVIDERS: Admitting Provider Specialist; Family Provider Family Medicine; PCP Family Medicine; Referring Provider Specialist; Visit Provider Internal Medicine
PROC: 0SPC0JZ Removal of Synthetic Substitute from Right Knee Joint, Open Approach (ICD-10-PCS; CPT 27487; principal; 2018-06-26 09:05)
DX: T84.022A Instability of internal right knee prosthesis, initial encounter (principal); I50.31 Acute diastolic (congestive) heart failure; Z68.43 Body mass index [BMI] 50.0-59.9, adult; I10 Essential (primary) hypertension; D64.9 Anemia, unspecified; E78.00 Pure hypercholesterolemia, unspecified; I25.10 Atherosclerotic heart disease of native coronary artery without angina pectoris; E66.01 Morbid (severe) obesity due to excess calories; I27.20 Pulmonary hypertension, unspecified; Z96.651 Presence of right artificial knee joint; I11.0 Hypertensive heart disease with heart failure; Z95.5 Presence of coronary angioplasty implant and graft; Z86.73 Personal history of transient ischemic attack (TIA), and cerebral infarction without residual deficits
CPT/HCPCS: 36415; 71045; 71275; 73560; 80048; 83036; 83880; 85027; 85610; 85730; 87015; 87070; 87075; 87081; 87102; 87116; 87205; 87206; 93306; 94002; 94003; 94640; 97110; 97116; 97162; 97166; 97530; C1776; J7120; Q9957; Q9967; A4216; C8929; J1940; J2405

== ENCOUNTER → 2018-08-09 | Outpatient (CLI) | payer MEDICARE, SELFPAY ==
[2018-07-11 10:22] VITALS: BMI 49.6
[2018-08-09 17:47] LABS: Anion Gap 6 (5-15); BUN 20 mg/dL (7-18); BUN/Creat Ratio 21.4 RATIO (10-20); Calcium,Total 9.4 mg/dL (8.5-10.1); Chloride 110 mmol/L (98-107); Creatinine, Serum 0.93 mg/dL (0.55-1.02); EST Glomerular Filtration Rate 64 mL/min (>60); Est Glom Filt Rate - Afr Amer 78 mL/min (>60); Glucose 115 mg/dL (74-106); Potassium 4.3 mmol/L (3.5-5.1); Sodium Level 141 mmol/L (136-145)
== END | disposition home or self-care (01) ==
LOC: MTLAB 16:07
PROVIDERS: Family Provider Family Medicine; PCP Family Medicine; Referring Provider Family Medicine; Visit Provider Family Medicine
DX: I10 Essential (primary) hypertension (principal)
CPT/HCPCS: 36415; 80048

== ENCOUNTER → 2018-08-12 | Outpatient (CLI) | payer MEDICARE, SELFPAY ==
[2018-07-11 10:22] VITALS: BMI 49.6
--- NOTE | 2018-08-12 13:13 | MRI_ITS ---
STUDY: MRI ABDOMEN WITH AND WITHOUT CONTRAST REASON FOR EXAM: Female, 62 years old. Abnormal radiologic findings of the right kidney. On recent CT chest, right renal upper pole lesion, incompletely characterized. TECHNIQUE: Standardized fat and water weighted pulse sequences were obtained in all 3 orthogonal planes post contrast administration. 24 ml of Dotarem contrast material was administered intravenously for the contrast portion of the examination. COMPARISON: CTA chest 06/27/2018, CT abdomen and pelvis 01/28/2014. FINDINGS: Compared to CT abdomen and pelvis of [address] chest of 06/27/2018, the right renal mid pole lesion projecting from the lateral cortical margin increased in size from 1.6 cm, up to 2.5 cm. Mixed attenuation lesion, quite suspicious for renal cell neoplasm. Body wall soft tissues: No acute process. Osseous structures: No acute process. Inferior chest: Limited evaluation, no acute process. Hepatobiliary: Hepatomegaly, craniocaudal right liver 20 cm. Generalized signal dropout on opposed phase imaging consistent with hepatic steatosis. No focal lesion. Comment bladder absent. Nondilated biliary tree. Pancreas: Moderate atrophy. Spleen: Normal. Adrenal glands: Normal. Stomach: Normal. Small and large bowel: Limited evaluation. Evaluated portions exhibit no acute process. Left kidney: Normal. Right kidney: Homogeneous T1 hyperintense, T2 hyperintense cyst at the apex of the superior pole, partially exhibit phytic, measuring 17 mm in diameter, unchanged compared to prior imaging of 2013, no suspicious enhancement. Most consistent with a benign proteinaceous Bosniak category 2 cyst. Cyst projecting from the mid: Cortical margin, complex features, 2.6 cm craniocaudal, 2.0 cm transverse, 2.5 cm anterior-posterior. Enhancing wall, enhancing nodular focus at the base of the cyst measuring 7.3 mm. Homogeneously T1 hypointense. T2 hyperintense fluid component. Single slender minimally enhancing septation confluent with the nodular focus at the base of the cyst. MRI/MRI Abd WITH and W/O Contrast IMPRESSION: At the apex of the superior pole the right kidney there is a benign Bosniak category 2 cyst, no significant change in size compared to imaging of 2014. Projecting from the mid polar lateral cortical margin of the right kidney, there is a complex cyst with suspicious features that has increased in size compared to imaging of 2014, that exhibits an enhancing mildly thickened wall and enhancing nodular focus at its base. These features most be regarded with suspicion for renal cell carcinoma. Hepatic steatosis with hepatomegaly. Moderate pancreatic atrophy. Electronically Signed: Joel Sarmiento MD at 16:03 EDT Tel , Service support ,
== END | disposition home or self-care (01) ==
PROVIDERS: Family Provider Family Medicine; PCP Family Medicine; Referring Provider Family Medicine; Visit Provider Family Medicine
DX: R93.421 Abnormal radiologic findings on diagnostic imaging of right kidney (principal)
CPT/HCPCS: 74183; A9575

== ENCOUNTER → 2018-09-09 | Outpatient (CLI) | payer MEDICARE, SELFPAY ==
[2018-07-11 10:22] VITALS: BMI 49.6
[2018-09-09 16:41] LABS: Absolute Lymphocyte Count 1.97 X10^3/ul (0.83-4.51); Absolute Neutrophil Count 6.2 X10^3/uL (2.0-7.7); Basophil# 0.05 X10^3/uL; Basophil% 0.6 % (0-1); Eosinophil# 0.24 X10^3/uL; Eosinophils% 2.7 % (0-5); Hematocrit 34.2 % (37-47); Hemoglobin 10.7 g/dl (12.0-15.0); Lymphocyte # 1.97 X10^3/ul (4.0); Lymphocyte % 21.9 % (19-41); Mean Corp Hgb Conc 31.3 g/gl (32-36); Mean Corpuscular Hgb 26.5 pg (27.0-32.0); Mean Corpuscular Volume 84.7 fL (81-99); Mean Platelet Vol. 9.8 fl (6.2-12.0); Monocyte# 0.53 X10^3/uL; Monocyte% 5.9 % (0-10); Neutrophil # 6.19 X10^3/uL (2.7-7.7); Neutrophil % 68.8 % (47-70); Platelet Count 351 K/mm3 (150-450); RBC Distribution Width CV 14.2 % (11.6-14.6); Red Blood Count 4.04 M/mm3 (4.2-5.4)
[2018-09-09 17:27] LABS: POSITIVE COUNT NO; POSITIVE DIFFERENTIAL NO; POSITIVE MORPHOLOGY NO
[2018-09-09 18:01] LABS: Erythrocyte Sedimentation Rate 64 mm/hr (0-30)
== END | disposition home or self-care (01) ==
LOC: LAB 15:27
PROVIDERS: Family Provider Family Medicine; PCP Family Medicine; Referring Provider Specialist; Visit Provider Specialist
DX: Z96.651 Presence of right artificial knee joint (principal)
CPT/HCPCS: 36415; 85025; 85652; 86140

== ENCOUNTER → 2018-09-13 | Outpatient (CLI) | payer MEDICARE, SELFPAY ==
[2018-07-11 10:22] VITALS: BMI 49.6
[2018-09-13 13:12] LABS: Pathologist Comment May follow; Pathologist Comment/Body Fluid May follow
[2018-09-13 13:32] LABS: Body Fluid Mononuclear WBC # 0.275 10^3/uL; Body Fluid Mononuclear WBC % 66.7 %; Body Fluid Polynuclear WBC # 0.137 10^3/uL; Body Fluid Polynuclear WBC % 33.3 %; Body Fluid Total Cells Counted 0.427 10^3/ul (0.000-0.000); RBC /Synovial Fluid 0.022 10^6/uL (0); Synovial Fld Mononuclear WBC % 66.7 %; Synovial Fld Polynuclear WBC # 0.137 10^3/ul; Synovial Fld Polynuclear WBC % 33.3 %; White Blood Count/Body Fluid 0.412 10^3/uL
[2018-09-13 14:24] LABS: AUTO B FLUID DILUENT BKGD CT WBC <0.1 RBC <0.01 (W<.1,R<.01); Appearance/Body Fluid SL CLDY; Auto B Fluid Analyzer BKGD Ct COUNTS W/IN LIMITS (W/IN LIMITS); Color/Body Fluid SLIGHTLY PINK; Source- Body Fluid OTHER
[2018-09-13 14:30] LABS: Appearance /Synovial Fluid Sl Cl (CLEAR); Color / Synovial Fluid Pink (Pale Yellow); Source / Synovial Fluid RIGHT KNEE; Source- Body Fluid SYNOVIAL
[2018-09-13 14:40] LABS: Lymphocytes 36 %; Monocytes 31 %; Neutrophil (Segs) 33 %
[2018-09-13 14:41] LABS: Body Fluid QC Type(s) BF1Q,BF2Q
[2018-09-16 09:39] LABS: Pathologist Review Reviewed
== END | disposition home or self-care (01) ==
LOC: LABSPEC 12:53
PROVIDERS: Family Provider Family Medicine; PCP Family Medicine; Referring Provider Specialist; Visit Provider Specialist
DX: Z96.651 Presence of right artificial knee joint (principal)
CPT/HCPCS: 87015; 87070; 87075; 87101; 87116; 87205; 87206; 89050; 89051; 89060

== ENCOUNTER → 2018-09-19 | Outpatient (CLI) | payer MEDICARE, SELFPAY ==
[2018-07-11 10:22] VITALS: BMI 49.6
== END | disposition home or self-care (01) ==
LOC: LABSPEC 14:56
PROVIDERS: Family Provider Family Medicine; PCP Family Medicine; Referring Provider Urology; Visit Provider Urology
DX: N39.0 Urinary tract infection, site not specified (principal)
CPT/HCPCS: 87086; 87088; 87186

== ENCOUNTER → 2018-09-24 | Outpatient (CLI) | payer MEDICARE, SELFPAY ==
[2018-07-11 10:22] VITALS: BMI 49.6
--- NOTE | 2018-09-24 11:38 | RAD_ITS ---
HISTORY: pt states she's been having cramps/lexy-horses in her neckall images done with patient in her wheelchair EXAM/TECHNIQUE: XR Spine Cervical 6 or More Views: COMPARISON: None. FINDINGS: # of images incl. paperwork: 7 No fracture or dislocation or osseous destruction. 2 mm degenerative anterolisthesis of C4 on C5 which reduces to anatomic alignment with extension and does not significantly change with flexion. Prominent degenerative changes particularly of the facets. Osteophytes cause likely high-grade narrowing of the right C2-3 foramen. No other apparent high-grade bony encroachment upon the foramina. No acute findings in the soft tissues. RAD/Cerv Spine Obl/Flex/Ext Comp IMPRESSION: No acute findings. Prominent degenerative changes. Mild degenerative anterolisthesis of C4 on C5 with evidence of mild instability at this level. at 1207 Reported and signed by: Ranulfo Heller MD Electronically Signed: Ranulfo Heller, at 12:05 EDT Tel , Service support ,
== END | disposition home or self-care (01) ==
LOC: MTRAD 11:36
PROVIDERS: Family Provider Family Medicine; PCP Family Medicine; Referring Provider Psychiatry & Neurology Neurology; Visit Provider Psychiatry & Neurology Neurology
DX: M54.2 Cervicalgia (principal)
CPT/HCPCS: 72052

== ENCOUNTER 2018-10-16 09:10 | Day surgery (SDC) | payer MEDICARE, SELFPAY ==
[2018-07-11 10:22] VITALS: BMI 49.6
[2018-10-16] VITALS (7 sets, daily range): BP systolic 129–163; BP diastolic 58–69; PULSE 58–66; RESP 16; TEMP 36.2–36.5; O2SAT 92–99; BMI 48.9
[2018-10-16 10:06] LABS: Bedside Glucose 111 mg/dL (70-110)
--- NOTE | 2018-10-16 12:35 | RAD_ITS ---
STUDY: X-RAY - PELVIS REASON FOR EXAM: Female, 62 years old. InterStim therapy. TECHNIQUE: One view of the pelvis was obtained. COMPARISON: None. FINDINGS: The electrode is seen along the posterior midline. RAD/Pelvis 1 or 2 Views IMPRESSION: The electrode is seen along the posterior midline of the pelvis. Electronically Signed: Boone Castro, at 15:39 EDT , Service support ,
[2018-10-16] MEDS: Cefazolin 2 GM in 0.9% Normal Saline 100 ML IV (12:37)
--- NOTE | 2018-10-16 13:16 | DCINST_ITS ---
Discharge Diet: Light diet - advance as tolerated Discharge Activity: Return to Normal Activity Suture Line Care: Avoid Pulling/Pushing, Avoid Pinching/Bending Allergies/Adverse Reactions: Allergies ciprofloxacin [From Cipro] Allergy (Verified 10/16/18 09:41) Unknown escitalopram oxalate [From Lexapro] Allergy (Verified 10/16/18 09:41) Unknown heparin Allergy (Verified 10/16/18 09:41) Unknown mupirocin [From Bactroban] Allergy (Verified 10/16/18 09:41) Unknown trazodone Allergy (Verified 10/16/18 09:41) Unknown adhesive tape Adverse Reaction (Verified 10/16/18 09:41) Other Medications to take at Discharge Clopidogrel Bisulfate [Plavix] 75 mg PO QHS 08/25/15 Sertraline HCl [Zoloft] 100 mg PO DAILY 08/25/15 Atorvastatin Calcium [Lipitor] 40 mg PO QHS 01/27/16 Pantoprazole Sodium [Protonix] 40 mg PO QHS 01/27/16 amlodipine 10 mg tablet 10 mg PO QDAY #90 tab 06/25/17 ALPRAZolam [Xanax] 1 mg PO BID 07/05/17 Duloxetine HCl 60 mg PO DAILY 07/05/17 ranitidine 150 mg tablet 150 mg PO QDAY 10/31/17 ferrous sulfate 325 mg (65 mg iron) tablet 1 tab PO BID 30 Days #60 tab 04/29/18 folic acid 1 mg tablet 1 tab PO DAILY 45 Days #45 tab 04/29/18 Aspirin [Aspirin, Baby] 81 mg PO BIDCM tab.chew 06/29/18 Metformin HCl 500 mg PO BIDCM #60 tab 06/29/18 Potassium Chloride [K-Dur] 20 meq PO DAILY #30 tab 06/29/18 lisinopril 20 mg tablet 20 mg PO BID tab 07/11/18 pramipexole 1 mg tablet 1 mg PO BID tab 07/11/18 metoprolol tartrate 25 mg tablet 25 mg PO BID #180 tab 09/16/18 Tizanidine HCl [Zanaflex] 2 mg PO Q8H PRN PRN 10/15/18 Cephalexin [Keflex] 500 mg PO 4X/DAY #12 cap 10/16/18 Ibuprofen 600 mg PO Q6H PRN PRN #20 tab 10/16/18 The following prescriptions were given: Ibuprofen 600 mg PO Q6H PRN PRN #20 tab PRN Reason: Pain Prescription Printed Cephalexin [Keflex] 500 mg PO 4X/DAY #12 cap Prescription Printed Primary Care Physician: Sudheer Lion MD [Primary Care Provider] - Test Results: Test results from this visit will be discussed in further detail at your follow- up appointment, if applicable. Please Follow Up With: Roverto Harding MD When: in 2 weeks, please call to make an appointment.
--- NOTE | 2018-10-16 13:18 | PCM.OPRPT ---
Report of Operation Date of Procedure: 10/16/18 Pre-Operative Diagnosis: Overactive bladder and urge incontinence Post-Operative Diagnosis: Same Surgery/Procedure Performed:: InterStim therapy stage I implant Description of Surgical Findings:: 62-year-old female has overactive bladder she is tried multiple many medications without improvement in her bladder control after failing medical therapy we talked about the options of management including observation, more medical therapy, Botox injections, PT NM, and InterStim therapy. She is mostly instead InterStim therapy she understands we are going to do a staged implant with stage I and a therapy implant first if she is a favorable responder then we will do a second stage implant. We talked about the procedure itself the risk of the procedure not helping with her bladder control, bleeding and infection and the risk of anesthesia were discussed with the patient. 62-year-old female taken back to the operating room she was positioned facedown in a prone position on the table make sure she was properly padded she was hugging a pillow she was secured to the table we then made sure that the sacrum was flat and then the sacrum buttocks and lower back were prepped and draped in usual sterile fashion, we used fluoroscopy to then identify the spinous processes on the both the right left left side projecting into the sacrum and we identified the sacrum itself and then we identified the location of the S3 foramen on both the right and left side. We went of the patient's left side first. I infiltrated the skin with lidocaine and used needle with stylette in it to guide down to the foramen but the needle was too short so the patient was fairly obese abuse a long needle and on the first try. That we get in the S2 foramen so then we marched 2 cm North infiltrate the skin some more and then advanced the needle and this time we went and what appeared to be the S3 foramen on the on the sacrum. We then advanced the needle when we stimulated and we got good lucero and good toe flexion response on the patient's left side. After then placement of this we advanced the guidewire through the needle pulled out the needle and then over the guidewire that the sheath we placed the the radiopaque marker in the sheath a little bit below residential between the anterior posterior plate of the sacrum, and then through the sheath I advanced the needle electrode for the InterStim that for leads at the end we put a slight curve at the ends of her curve nicely along with the nerve and as we advanced the needle electrode through we ended to having 3 electrodes below and one out electrode above the posterior plate. We then stimulated 0, 1, 2, 3, locations on the electrode and all 3 sites had good lucero and good toe flexion so after confirmation by motor response of the position of the electrode we then pulled out the stylette we infiltrated the skin for the pocket made a small pocket we tunneled the lead to the pocket we then put the boot on the lead and the temporary extension and the lead these were tied on with suture and also the boot and the temper extension were cured with the screwdriver provided in the kit after the boot and the temper extension were added to the permanent lead we then drove the temper extension away from the pocket site and exit site and then we tunneled the temper extension at the skin on the exit site cephalad to the original insertion site. Once the permanent lead was placed with the temper extension applied to the permanent lead left in the pocket we closed the entry site to the electrode about the sacrum and then we closed the pocket with subarticular stitches dressings and bandages were placed and patient anesthetic was reversed she will undergo training and teaching of the postoperative area and how to use the device and if we have successful stimulation she will be back for stage II implant. Type of Anesthesia:: Local MAC Drains: none - Admit VTE Documentation VTE Present on Admission: No VTE Mechan Device Prophylaxis: SCD's
[2018-10-16] MEDS: Ketorolac 15 MG/ML Vial IV (13:56)
== END 2018-10-16 14:41 | disposition home or self-care (01) ==
LOC: SDC 09:11 → AC 09:14
PROVIDERS: Family Provider Family Medicine; PCP Family Medicine; Referring Provider Urology; Visit Provider Urology
PROC: (CPT 64561; principal; 2018-10-16 10:45)
DX: N32.81 Overactive bladder (principal); N39.41 Urge incontinence; D41.01 Neoplasm of uncertain behavior of right kidney; I11.9 Hypertensive heart disease without heart failure; F32.9 Major depressive disorder, single episode, unspecified; E66.9 Obesity, unspecified; K21.9 Gastro-esophageal reflux disease without esophagitis; D64.9 Anemia, unspecified; E78.00 Pure hypercholesterolemia, unspecified; E11.9 Type 2 diabetes mellitus without complications; F41.9 Anxiety disorder, unspecified; Z95.5 Presence of coronary angioplasty implant and graft; Z68.42 Body mass index [BMI] 45.0-49.9, adult; Z87.440 Personal history of urinary (tract) infections; Z79.84 Long term (current) use of oral hypoglycemic drugs; Z79.02 Long term (current) use of antithrombotics/antiplatelets; Z79.82 Long term (current) use of aspirin; Z79.899 Other long term (current) drug therapy
CPT/HCPCS: 64561; 72170; 76000; 82962; J7120; C1778; C1820

== ENCOUNTER → 2018-10-28 | Outpatient (CLI) | payer MEDICARE, SELFPAY ==
[2018-10-16 09:45] VITALS: BMI 48.9
[2018-10-28 17:58] LABS: Anion Gap 8 (5-15); BUN 16 mg/dL (7-18); BUN/Creat Ratio 14.2 RATIO (10-20); Calcium,Total 9.2 mg/dL (8.5-10.1); Chloride 105 mmol/L (98-107); Cholesterol 141 mg/dL (200); Creatinine, Serum 1.13 mg/dL (0.55-1.02); EST Glomerular Filtration Rate 51 mL/min (>60); Est Glom Filt Rate - Afr Amer 62 mL/min (>60); Glucose 177 mg/dL (74-106); High Density Lipoprotein 55 mg/dL; Potassium 3.8 mmol/L (3.5-5.1); Sodium Level 137 mmol/L (136-145); Triglycerides 196 mg/dL; Very Low Density Lipoprotein 39 mg/dL (5-40)
[2018-10-28 18:06] LABS: Hemoglobin A1c 7.5 % (4.2-6.3)
== END | disposition home or self-care (01) ==
LOC: MFPLAB 15:29
PROVIDERS: Family Provider Family Medicine; PCP Family Medicine; Visit Provider Family Medicine
DX: E11.9 Type 2 diabetes mellitus without complications (principal)
CPT/HCPCS: 36415; 80048; 80061; 83036

== ENCOUNTER 2018-11-01 09:20 | Day surgery (SDC) | payer MEDICARE, SELFPAY ==
[2018-10-16 09:45] VITALS: BMI 48.9
[2018-11-01 10:15] VITALS: BP 168/81; PULSE 72; RESP 16; O2SAT 98; BMI 47.7
[2018-11-01 10:40] LABS: Bedside Glucose 131 mg/dL (70-110)
--- NOTE | 2018-11-01 12:27 | DCINST_ITS ---
Discharge Diet: Light diet - advance as tolerated Discharge Activity: Return to Normal Activity Call your doctor if you observe: Fever of 101 or Higher Suture Line Care: Avoid Pulling/Pushing, Avoid Pinching/Bending Cleanse incision/area with: Soap & Water Allergies/Adverse Reactions: Allergies ciprofloxacin [From Cipro] Allergy (Verified 10/31/18 11:31) Unknown escitalopram oxalate [From Lexapro] Allergy (Verified 10/31/18 11:31) Unknown heparin Allergy (Verified 10/31/18 11:31) Unknown mupirocin [From Bactroban] Allergy (Verified 10/31/18 11:31) Unknown trazodone Allergy (Verified 10/31/18 11:31) Unknown adhesive tape Adverse Reaction (Verified 10/31/18 11:31) Other Medications to take at Discharge Clopidogrel Bisulfate [Plavix] 75 mg PO QHS 08/25/15 Sertraline HCl [Zoloft] 50 mg PO DAILY 08/25/15 Atorvastatin Calcium [Lipitor] 40 mg PO QHS 01/27/16 Pantoprazole Sodium [Protonix] 40 mg PO QHS 01/27/16 ALPRAZolam [Xanax] 1 mg PO TID 07/05/17 Duloxetine HCl 60 mg PO DAILY 07/05/17 ranitidine 150 mg tablet 150 mg PO QDAY 10/31/17 Metformin HCl 500 mg PO BIDCM #60 tab 06/29/18 lisinopril 20 mg tablet 20 mg PO DAILY tab 07/11/18 pramipexole 1 mg tablet 1 mg PO BID tab 07/11/18 metoprolol tartrate 25 mg tablet 25 mg PO BID #180 tab 09/16/18 Tizanidine HCl [Zanaflex] 2 mg PO Q8H PRN PRN 10/15/18 Amlodipine Besylate [Norvasc] 5 mg PO QDAY 10/31/18 Aspirin [Aspirin, Baby] 81 mg PO DAILY 10/31/18 Primary Care Physician: Sudheer Lion MD [Primary Care Provider] - Test Results: Test results from this visit will be discussed in further detail at your follow- up appointment, if applicable. Please Follow Up With: Roverto Harding MD When: please call to make an appointment.
[2018-11-01] MEDS: Cefazolin 2 GM in 0.9% Normal Saline 100 ML IV (12:33)
--- NOTE | 2018-11-01 12:50 | PCM.OPRPT ---
Report of Operation Date of Procedure: 11/01/18 Pre-Operative Diagnosis: Overactive bladder urge incontinence stage I InterStim therapy Post-Operative Diagnosis: Stage I InterStim therapy failed Surgery/Procedure Performed:: Removal of stage I InterStim therapy Description of Surgical Findings:: 63-year-old female in replacement of a stage I a stent and therapy about 2 weeks ago showed good placement of the lead had a good lucero response good toe response good sensation. Postoperative setting we were able to set the device properly however she never got a successful response had difficulty with controlling the device difficulty with stimulation control so we decided to go ahead and remove the stage I InterStim therapy she failed a trial no significant improvement in urinary symptoms symptoms. 63-year-old female taken back to the operating room at the smooth induction of MAC local she was placed facedown the table we prepped and draped the area in sterile fashion we cut off the extension temper extension from the lead from the extension temporary lead to the snap on this we prepped and draped the sites where the pocket was going to be in the lead insertion site. I then made an incision in the lead insertion site and grabbed the permanent lead and pulled it up and put a snap around it I then opened up the pocket where the generator was going to be and I found the lead and the temporary boot extension and I cut off the extension of the temporary boot and cut off the lead this was handed off and as a specimen and then we pulled out the temper extension from the backside of table underneath the table. Then I pulled the lead out to the insertion site pulled the leads straight up and then this allowed the lead to come out all intact from the patient's sacrum area. We then irrigated the incisions and closed the incisions with subcuticular stitches bandages and dressings were placed to take back to PACU in good condition plan to see her back in a few weeks for just a checkup and then we can do Botox in about 3 months. Type of Anesthesia:: Local MAC Drains: none - Admit VTE Documentation VTE Present on Admission: No
[2018-11-01 13:02] VITALS: BP 134/68; BP 168/81; PULSE 72; RESP 16; TEMP 36.7; O2SAT 95
[2018-11-01 13:15] VITALS: BP 148/64; BP 168/81; PULSE 71; RESP 16; O2SAT 94
[2018-11-01 13:20] VITALS: BP 152/87; BP 168/81; PULSE 74; RESP 16; O2SAT 96
[2018-11-01 13:23] VITALS: BP 162/71; BP 168/81; PULSE 72; RESP 16; TEMP 37; O2SAT 94
[2018-11-01 14:23] VITALS: BP 168/81
--- NOTE | 2018-11-05 07:39 | HP.PCM_ITS ---
History and Physical Date of Admission: 11/01/18
--- NOTE | 2018-11-05 07:39 | PCM.HP.BLA ---
History and Physical Date of Admission: 11/01/18
--- NOTE | 2018-11-05 07:43 | HP.PCM_ITS ---
History of Present Illness Date of Admission: 11/01/18 Chief Complaint: InterStim therapy The patient is a 63 year old female with severe overactive bladder we did InterStim therapy trial if failed to remove the stage I lead Past Medical History Past Medical History (Chronic Problems): Chronic Problems (Last Reviewed 07/11/18 @ 10:26 by Susie Pinon) Essential hypertension (Chronic) Atherosclerotic heart disease of [place] coronary artery without angina pectoris (Chronic) Pre-operative cardiovascular examination (Chronic) History of heart artery stent (Chronic ~02/27/12) 02/27/12 PTCA/LADARIUS to mid LAD; 09/24/2009 bare-metal stent to RCA at [facility]; Sleep-disordered breathing (Chronic) Nocturnal hypoxemia (Chronic) Pulmonary hypertension (Chronic) Suicide attempt by drug ingestion (Chronic) Depression (Chronic) Anxiety (Chronic) Insomnia (Chronic) Morbid obesity (Chronic) Right sided cerebral infarction (Chronic) Hyperlipidemia (Chronic) Medical History: Medical History (Last Reviewed 07/11/18 @ 10:26 by Susie Pinon) Essential hypertension (Chronic) I10 Atherosclerotic heart disease of [place] coronary artery without angina pectoris (Chronic) I25.10 UTI (urinary tract infection) (Acute) N39.0 Metabolic encephalopathy (Acute) G93.41 Sleep-disordered breathing (Chronic) G47.30 Nocturnal hypoxemia (Chronic) G47.34 Pulmonary hypertension (Chronic) I27.20 Suicide attempt by drug ingestion (Chronic) T50.902A Depression (Chronic) F32.9 Anxiety (Chronic) F41.9 Insomnia (Chronic) G47.00 Morbid obesity (Chronic) E66.01 Right sided cerebral infarction (Chronic) I63.9 Hyperlipidemia (Chronic) E78.5 CVA (cerebral vascular accident) I63.9 2006 right sided Heart disease I51.9 Coronary artery disease (Inactive) I25.10 Hypertension (Inactive) I10 Allergies ciprofloxacin [From Cipro] Allergy (Verified 10/31/18 11:31) Unknown escitalopram oxalate [From Lexapro] Allergy (Verified 10/31/18 11:31) Unknown heparin Allergy (Verified 10/31/18 11:31) Unknown mupirocin [From Bactroban] Allergy (Verified 10/31/18 11:31) Unknown trazodone Allergy (Verified 10/31/18 11:31) Unknown adhesive tape Adverse Reaction (Verified 10/31/18 11:31) Other Home Medications: Ambulatory Orders Medication Instructions Recorded Clopidogrel Bisulfate [Plavix] 75 mg PO QHS 08/25/15 Sertraline HCl [Zoloft] 50 mg PO DAILY 08/25/15 Atorvastatin Calcium [Lipitor] 40 mg PO QHS 01/27/16 Pantoprazole Sodium [Protonix] 40 mg PO QHS 01/27/16 ALPRAZolam [Xanax] 1 mg PO TID 07/05/17 Duloxetine HCl 60 mg PO DAILY 07/05/17 ranitidine 150 mg tablet 150 mg PO QDAY 10/31/17 Metformin HCl 500 mg PO BIDCM #60 tab 06/29/18 lisinopril 20 mg tablet 20 mg PO DAILY tab 07/11/18 pramipexole 1 mg tablet 1 mg PO BID tab 07/11/18 metoprolol tartrate 25 mg tablet 25 mg PO BID #180 tab 09/16/18 Tizanidine HCl [Zanaflex] 2 mg PO Q8H PRN PRN 10/15/18 Amlodipine Besylate [Norvasc] 5 mg PO QDAY 10/31/18 Aspirin [Aspirin, Baby] 81 mg PO DAILY 10/31/18 Acetaminophen [Tylenol Extra 500 mg PO Q4H PRN PRN #20 tab 11/01/18 Strength] Cephalexin [Keflex] 500 mg PO Q8 #20 cap 11/01/18 Ibuprofen 600 mg PO Q6H PRN PRN #20 tab 11/01/18 Surgical History: Surgical History (Last Reviewed 07/11/18 @ 10:26 by Susie Pinon) History of knee replacement (Resolved) Z96.659 History of heart artery stent (Chronic) Onset Date: ~02/27/12 Z95.5 02/27/12 PTCA/LADARIUS to mid LAD; 09/24/2009 bare-metal stent to RCA at [facility]; H/O arthroscopy of right knee (Resolved) Z98.890 History of cholecystectomy Z90.49 History of hysterectomy Z90.710 History of tonsillectomy Z90.89 Status post total right knee replacement Onset Date: ~06/26/18 Z96.651 Surgical History: cholecystectomy, hysterectomy, total knee arthroplasty - June [address] 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, Depression [employer] History: dysfunctional uterine bld Smoking Status: Never smoker - *Family History Maternal Family History: Family History (Last Reviewed 07/11/18 @ 10:26 by Susie Pinon) Mother CAD (coronary artery disease) Hypertension Father CAD (coronary artery disease) Brother Myocardial infarction Hypertension History Items: No pertinent history Paternal Family History: Family History (Last Reviewed 07/11/18 @ 10:26 by Susie Pinon) Mother CAD (coronary artery disease) Hypertension Father CAD (coronary artery disease) Brother Myocardial infarction Hypertension History Items: No pertinent history VTE Information - Inpt Only VTE Present on Admission: No VTE Mechan Device Prophylaxis: SCD's - Physical Exam General: Alert, Oriented x3, Cooperative HEENT: Atraumatic, PERRLA, EOMI, Normocephalic Neck: Supple, No JVD, Negative Carotid Bruits Lungs: Clear to auscultation, Normal air movement Cardiovascular: Regular rate, No murmurs Abdomen: Bowel Sounds Present, Soft, Non Tender Extremities: No edema, Capillary Refill Less than 3 Seconds Skin: No rashes, No breakdown Musculoskeletal: No Tenderness to Palpation of Joints or Extremities Neurological: Cranial nerves II-XII grossly intact Psych/Mental Status: Normal Affect, Appropriate Vital Signs Temp Pulse Resp BP Pulse Ox 98.6 F 72 16 162/71 H 94 11/01/18 13:23 11/01/18 13:23 11/01/18 13:23 11/01/18 13:23 11/01/18 13:23 Oxygen Delivery Method Room Air Weight: 118.3 kg Body Mass Index (BMI) 47.7 Finger Stick Blood Glucose 97 Assessment/Plan All Active Problems (Last Reviewed 07/11/18 @ 10:26 by Susie Pinon) History of knee replacement (Resolved) H/O arthroscopy of right knee (Resolved) UTI (urinary tract infection) (Acute) Metabolic encephalopathy (Acute) Status post InterStim therapy trial removal of lead today.
== END 2018-11-01 14:24 | disposition home or self-care (01) ==
LOC: SDC 09:24 → AC 09:28
PROVIDERS: Family Provider Family Medicine; PCP Family Medicine; Referring Provider Urology; Visit Provider Urology
PROC: (CPT 64585; principal; 2018-11-01 10:55)
DX: N32.81 Overactive bladder (principal); N39.41 Urge incontinence; I25.10 Atherosclerotic heart disease of native coronary artery without angina pectoris; I27.20 Pulmonary hypertension, unspecified; F32.9 Major depressive disorder, single episode, unspecified; F41.9 Anxiety disorder, unspecified; E66.01 Morbid (severe) obesity due to excess calories; E78.5 Hyperlipidemia, unspecified; Z95.5 Presence of coronary angioplasty implant and graft; I11.9 Hypertensive heart disease without heart failure; K21.9 Gastro-esophageal reflux disease without esophagitis; D64.9 Anemia, unspecified; E11.9 Type 2 diabetes mellitus without complications; Z68.42 Body mass index [BMI] 45.0-49.9, adult; Z86.73 Personal history of transient ischemic attack (TIA), and cerebral infarction without residual deficits; Z87.440 Personal history of urinary (tract) infections; Z79.02 Long term (current) use of antithrombotics/antiplatelets; Z79.84 Long term (current) use of oral hypoglycemic drugs; Z79.82 Long term (current) use of aspirin; Z79.899 Other long term (current) drug therapy
CPT/HCPCS: 00300; 64585; 82962; J7120; J2405

== ENCOUNTER → 2018-11-11 | Outpatient (CLI) | payer MEDICARE, SELFPAY ==
[2018-11-01 10:15] VITALS: BMI 47.7
--- NOTE | 2018-11-11 14:01 | RAD_ITS ---
STUDY: X-RAY - LEFT KNEE REASON FOR EXAM: Female, 63 years old. Pain. TECHNIQUE: 4 view(s) of the knee. COMPARISON: None. FINDINGS: Normal visualized distal femur. Normal visualized proximal tibia and fibula. Normal proximal tibiofibular articulation. Normal medial femorotibial compartment. Normal lateral femorotibial compartment. Normal patellofemoral articulation. The soft tissue structures are unremarkable. RAD/Knee 4 or More Views IMPRESSION: Within normal limits x-ray examination of the knee. Electronically Signed: Annamaria Campuzano MD at 16:23 EDT Tel , Service support ,
[2018-11-11 15:15] LABS: Absolute Lymphocyte Count 2.26 X10^3/uL (0.83-4.51); Absolute Neutrophil Count 6.3 X10^3/uL (2.0-7.7); Basophil# 0.07 X10^3/uL; Basophil% 0.7 % (0-1); Eosinophils% 3.2 % (0-5); Hemoglobin 11.1 g/dL (12.0-15.0); Lymphocyte # 2.26 X10^3/ul (4.0); Lymphocyte % 23.9 % (19-41); Mean Corpuscular Hgb 25.4 pg (27.0-32.0); Mean Corpuscular Volume 84.7 fL (81-99); Mean Platelet Vol. 10.3 fl (6.2-12.0); Monocyte# 0.51 X10^3/uL; Monocyte% 5.4 % (0-10); NRBC Flagged by Analyzer 0 % (0-5); Neutrophil # 6.27 X10^3/uL (2.7-7.7); Neutrophil % 66.4 % (47-70); Platelet Count 350 K/mm3 (150-450); RBC Distribution Width CV 14.7 % (11.6-14.6); RBC Distribution Width SD 45.2 fl (35.1-43.9); Red Blood Count 4.37 M/mm3 (4.2-5.4); White Blood Count 9.5 K/mm3 (4.4-11.0)
[2018-11-11 15:25] LABS: Albumin, Serum 3.9 g/dL (3.2-5.0)
== END | disposition home or self-care (01) ==
LOC: MTLAB 13:58
PROVIDERS: Family Provider Family Medicine; PCP Family Medicine; Referring Provider Family Medicine; Visit Provider Family Medicine
DX: M25.562 Pain in left knee (principal); Z09 Encounter for follow-up examination after completed treatment for conditions other than malignant neoplasm
CPT/HCPCS: 36415; 73564; 82040; 85025

== ENCOUNTER → 2018-12-02 | Outpatient (CLI) | payer MEDICARE, SELFPAY ==
[2018-12-02 13:55] LABS: Absolute Lymphocyte Count 1.65 X10^3/uL (0.83-4.51); Absolute Neutrophil Count 6.5 X10^3/uL (2.0-7.7); Basophil# 0.05 X10^3/uL; Basophil% 0.6 % (0-1); Eosinophil# 0.21 X10^3/uL; Eosinophils% 2.4 % (0-5); Hematocrit 38.7 % (37-47); Hemoglobin 11.6 g/dL (12.0-15.0); Lymphocyte # 1.65 X10^3/ul (4.0); Lymphocyte % 18.7 % (19-41); Mean Corpuscular Hgb 24.8 pg (27.0-32.0); Mean Corpuscular Volume 82.7 fL (81-99); Mean Platelet Vol. 10.9 fl (6.2-12.0); Monocyte% 4.5 % (0-10); NRBC Flagged by Analyzer 0 % (0-5); Neutrophil # 6.49 X10^3/uL (2.7-7.7); Neutrophil % 73.5 % (47-70); POSITIVE MORPHOLOGY YES; Platelet Count 297 K/mm3 (150-450); RBC Distribution Width CV 15.5 % (11.6-14.6); RBC Distribution Width SD 46.5 fl (35.1-43.9); Red Blood Count 4.68 M/mm3 (4.2-5.4); White Blood Count 8.8 K/mm3 (4.4-11.0)
[2018-12-02 14:03] LABS: Differential Indicated SCAN CRITERIA MET
[2018-12-02 14:07] LABS: ALB/GLOB Ratio 0.9 RATIO (0.9-2.4); AST(SGOT) 25 U/L (15-37); Alanine Aminotransfer ALT/SGPT 28 U/L (13-56); Albumin, Serum 3.7 g/dL (3.2-5.0); Alkaline Phosphatase 171 U/L (45-117); Anion Gap 7 (5-15); BUN 19 mg/dL (7-18); BUN/Creat Ratio 18.3 RATIO (10-20); Calcium,Total 9.7 mg/dL (8.5-10.1); Chloride 107 mmol/L (98-107); Creatinine, Serum 1.04 mg/dL (0.55-1.02); EST Glomerular Filtration Rate 57 mL/min (>60); Est Glom Filt Rate - Afr Amer 68 mL/min (>60); Globulin 4.3 g/dL (2.2-4.2); Glucose 95 mg/dL (74-106); Potassium 4.2 mmol/L (3.5-5.1); Sodium Level 138 mmol/L (136-145)
== END | disposition home or self-care (01) ==
LOC: MTLAB 11:29
PROVIDERS: Family Provider Family Medicine; PCP Family Medicine; Referring Provider Family Medicine; Visit Provider Family Medicine
DX: Z01.818 Encounter for other preprocedural examination (principal)
CPT/HCPCS: 36415; 80053; 85025

== ENCOUNTER 2018-12-25 12:09 | Inpatient (IN) | payer MEDICARE, SELFPAY ==
--- NOTE | 2018-12-13 13:02 | PCM.HP.BLA ---
History and Physical Patient Name: Sheridan Carrasquillo : 1955 From: SHENA RAIN PA-C DATE OF SURGERY: 12/25/2018 SCHEDULED PROCEDURE: right total knee scar excision and polyethylene exchange HISTORY OF PRESENT ILLNESS: Preoperative history and physical exam was performed on December 13, 2018. This is a 63-year-old female who continues to have difficulty with her revision right total knee arthroplasty. He underwent a previous right total knee arthroplasty in June 19, [address] Chua who had gross instability of the right knee with flexion and extension contributing to frequent falls. Patient underwent a revision total knee arthroplasty entire tibia and femoral components on June 26, 2018. Patient has had to use walker and wheelchair due to left knee pain and right knee pain. She complains of weakness and is unable to straighten the right leg on her own. Patient has had continued falls she has had difficulty obtaining full extension since surgery. After failing conservative measures and discussing treatment options of Dr. Wilber Osborn, the patient would like to proceed with a right total knee scar excision with polyethylene exchange. We have obtain surgical clearance from the primary care physician. Patient has a medical history pertinent for stroke as well as hypertension. Patient has been on Plavix and aspirin due to previous heart stents and does see Dr. Alegre. We did receive surgical clearance from the accounting professor prior to her surgery in June and was able to stop Plavix and aspirin. She has not had any change in medical problems. Denies any chest pain or shortness of breath. REVIEW OF SYSTEMS: ROS: Const: Reports change in appetite, but denies anorexia, fever, difficulty sleeping, weight change. CV: Denies chest pain, heart murmur, irregular heartbeat and peripheral vascular disease. Resp: Denies asthma, cough, pneumonia, sleep apnea, shortness of breath, tuberculosis and wheezing. GI: Denies constipation, diarrhea, heartburn, nausea, rectal itching, bloody stools and vomiting. : Denies incontinence. Musculo: Reports leg swelling, pain, trouble walking and weakness. Skin: Denies Raynaud's, history of shingles and tattoo. Neuro: Reports difficulty with balance but denies ambulatory dysfunction, dizziness, numbness/tingling and tremor. Psych: Reports anxiety, but denies depression, insomnia, mental illness and stress. Yoandy/Lymph: Denies anemia, bleeding/bruising tendency and past transfusion. Reviewed and updated. PAST MEDICAL HISTORY: Advance Care Plan: Other Directive, POA Effective Date: 12/18/2016 Other Directive, LIVING WILL Effective Date: 12/18/2016 PMH: Medical Problems: High Blood Pressure, Stroke, Hypercholesterolemia Accidents: None Surgical Hx: Gallbladder Hernia Repair - 1955 Hysterectomy, Tonsillectomy Stent - X2 HEART RT 3RD & 4TH Toe Flexor Tenotomy - (11/18/2014) [email or web address] Knee Replacement RT - July Dr. Chua RT Total Knee Revision - (06/26/2018) [email or web address] Anesthesia Complications: Takes Awhile To Come Out Assistive Devices: Dentures, Walker, Brace Reviewed, no changes. 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 Personal Habits: Smoking: Patient has never smoked.Cigarette Use: Never Smoked Cigarettes.Alcohol: Denies use.Drug Use: Denies Use.Enjoy Exercising: Exercises 1-3 X/Week. Reviewed and updated. VITALS: Ht: 60 Wt: 262lb Wt k.843 BMI: 51.2 BP: 134/82 Pulse: 60 Resp: 16 T: 98.3 T: 36.8C ALLERGIES: Trazodone Lexapro Tape Heparin MEDICATIONS: [place] 5-325 mg 1 by mouth every 6 hour as needed pain, Ferrous Sulfate 325 (65 Fe) MG take 1 tablet by mouth twice a day, Folic Acid 1 mg 1 by mouth every day, Alprazolam 1 mg 1po bid, Celexa 40 mg 1 tab PO daily, Plavix 75 mg take 1/2 tablet every daily, Zestril 20 mg 1 tab PO bid, Duloxetine HCL 60 mg 1 by mouth every day, Metoprolol Tartrate 25 mg 1 by mouth every day, Protonix 40 mg 1 tab PO daily, Lipitor 40 mg 1 tab PO daily, Mirapex 0.5 mg 1 tab PO daily, Norvasc 2.5 mg 1 tab PO daily, Probiotic 1 cap PO daily, Ranitidine HCL 150 mg Take 1 tablet by mouth daily, Aspirin 81 mg 1 tab PO bid, Metformin HCL ER (Mod) 500 mg 1po bid, Ciprofloxacin HCL 500 mg take 1 tablet by mouth twice a day, Tizanidine HCL 2 mg take 1 tablet by mouth every 8 hours if needed PRE-OP EXAM: General appearance:NORMAL Other: Eyes: Conjunctivae and lids: NORMAL Pupils: ERR Ears, Nose, Mouth, and Throat: NORMAL Other: Inspection of lips, teeth and gums: NORMAL Other: Neck: Examination of neck: no masses noted. Respiratory: Assessment of respiratory effort: NORMAL Other: Auscultation of lungs: clear to auscultation no wheezes, rhonchi or rales. Cardiovascular: Auscultation of heart: regular rate and rhythm, no murmurs, gallops or rubs. Gastrointestinal: Exam of abdomen: soft, nontender, nondistended bowel sounds present. PHYSICAL EXAMINATION: Patient currently walks with an antalgic gait with use of walker. Right knee is cool to touch without erythema. Previous incision is well-healed. Patient has a 20 flexion contracture. Sensation intact to light touch. Neurovascularly intact. IMAGING STUDIES: Previous x-rays of the right knee reveal a stable well aligned total knee replacement with well fixed implants. Patient has revision implants was cemented femoral stem and press-fit tibial stem. There is also a tibial cone. The joint is well aligned and there is lateral tracking and subluxation of the patella. IMPRESSION: 1. Painful right revision total knee arthroplasty with flexion contracture 2. Hypertension 3. Hypercholesterolemia 4. Previous stroke 2005 5. History of heart stent currently on Plavix and aspirin PLAN: Dr. Wilber Osborn did discuss and review with the patient all treatment options including surgical versus nonsurgical options. Patient does wish to proceed with the above-stated procedure. Potential risks, benefits, and complications of the procedure were discussed in detail including but not limited to , infection, nerve and blood vessel damage, persistent pain, numbness, tingling, paresthesias, blood clot, pulmonary embolism, and requirement for possible further surgery. The patient expressed full understanding and has no further questions for the doctor. Patient does agree to proceed with the above-stated procedure and has signed the surgery consent form. This dictation was created using voice recognition software. Phonetic and/or grammatical errors may exist.. ___ I have re-examined the patient. There are no clinical changes since date of exam. ___ See progress notes for changes. ___ Dictated on admission Date: Time: Signature:
[2018-12-13 13:20] VITALS: BP 155/69; PULSE 65; RESP 16; TEMP 36.3; O2SAT 96; BMI 49.5
[2018-12-25] VITALS (14 sets, daily range): BP systolic 110–154; BP diastolic 56–86; PULSE 60–84; RESP 16–22; TEMP 36–36.7; O2SAT 92–100; BMI 49.5; BMI 48.4
[2018-12-25] MEDS: Gabapentin 600 MG Tablet PO (13:20)
[2018-12-25] MEDS: Acetaminophen 500 MG Tablet 1000 MG PO ×2 (13:20→22:36)
[2018-12-25] MEDS: Magnesium Sulfate 4gm/100mL 4 GM/100 ML IV.SOLN. IV (13:27)
[2018-12-25 13:31] LABS: Bedside Glucose 94 mg/dL (70-110)
[2018-12-25] MEDS: Lactated Ringers 1,000 ML 100 ML IV ×2 (13:43→18:26)
[2018-12-25] MEDS: Scopolamine 1mg/72hr Patch 1 PATCH TRANSDERM. (13:51)
[2018-12-25] MEDS: Cefazolin 2 GM in 0.9% Normal Saline 100 ML IV (14:15)
[2018-12-25] MEDS: Triamcinolone Acetonide 40 MG/ML Vial (14:21)
[2018-12-25] MEDS: Lactated Ringers 1,000 ML 999 ML IV (15:30)
[2018-12-25] MEDS: Scopolamine 1mg/72hr Patch 1 PATCH TD (16:15)
--- NOTE | 2018-12-25 16:16 | RAD_ITS ---
STUDY: X-RAY - RIGHT KNEE REASON FOR EXAM: Female, 63 years old. Postoperative TECHNIQUE: 4 view(s) of the knee. COMPARISON: X-ray right knee June 26, 2018 FINDINGS: Total right knee arthroplasty performed. There is no evidence of complication. There is no radiopaque foreign body. RAD/Knee 1 or 2 Views IMPRESSION: Right knee arthropathy as above. Electronically Signed: Hoang Silvestre, at 20:17 EDT Tel , Service support ,
--- NOTE | 2018-12-25 16:18 | PCM.OPRPT ---
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 Patella femoral maltracking Surgery/Procedure Performed:: 1. 1 component revision right total knee replacement with polyethylene exchange and scar excision. 2. Medial retinacular imbrication Description of Surgical Findings:: Stable knee with good patella tracking at completion. We were able to correct the patient's extension. mechanical engineering teacher: Shailesh Rangel Type of Anesthesia:: Spinal Anesthesiologist: aGge Montelongo Special Medications: 2 g Ancef, 2 g TXA in the wound prior to closure, 10 mg Decadron, joint cocktail (5 mg Duramorph, 30 mL of 0.5% Ropivicaine, 1000 units of epinephrine, 30 mg of Toradol) Estimated Blood Loss (mL): 100 mL Fluids Replaced: 1200 mL crystalloid Description of Procedure: 63 yo F history of R TKA June 2017, revision 1 year later for instability presents with arthrofibrosis and lack of full extension. Reviewed options were discussed the patient. The patient's difficulty walking, associated pain and lack of full extension we elected to proceed with scar excision and polyethylene exchange. Risks and benefits of the procedure were discussed with the patient including but not limited to blood loss, DVTs, PEs, neurovascular damage, infection, general risk of anesthesia including loss of life. Demonstrated understanding and was able to sign informed consent. On the date of procedure patient's R lower extremity was marked in the preoperative area. The patient was then taken back to the operating room where the patient was placed on the table in the supine position. All bony prominences were identified a well-padded. Anesthesia assumed control of the C-spine and airway and remained controlled throughout the remainder of the procedure. A tourniquet was placed on the operative thigh and the leg was prepped in a sterile fashion. The surgeon then scrubbed at this time .Upon reentering the room left lower extremity was draped in a standard orthopedic fashion. A timeout was then called and everyone agreed upon the side, the site, the procedure to be performed, patient's identity and antibiotics given. A midline skin incision was made and sharp dissection was taken down through skin subcutaneous tissue and fat. Appropriate flaps were elevated medially and laterally. His arthrotomy was identified and the standard medial parapatellar incision was made and the patella was subluxed laterally. The standard deep MCL release was done. Once this was performed it became evident that the patella seemed to track laterally. During the approach we attempted to mobilize the patella as much as possible. At this point an aggressive synovectomy commenced. Our attention was first turned towards the subpatellar pouch and all suspicious synovium and tissues were debrided. We then directed our attention towards medial lateral gutters were these tissues were aggressively debrided. Knee was then flexed up the polyethylene was removed. Once polyethylene was removed we did the remainder of the synovium in the medial and lateral gutters and along the lateral structures and MCL. We then debrided the posterior knee. Once we are in the posterior knee we flexed the knee up and we are able to make posterior releases on both the posterior femur and posterior tibia. Knee was flexed up and culture was taken from the femoral notch. And also there was a membrane beneath the tibial baseplate that was removed and sent for culture. He had completed our synovectomy and were happy with the joint. We then lavaged the joint with 6 L of normal saline were then irrigated throughout the wound with low-pressure lavage and the wound was once again explored. All remaining scar tissue tissue was debrided. We then began trialing. A 19 mm polyethylene was appropriate given good extension and stability in flexion. With a 19 mm trial in we are able to flex the knee up and do an adequate lateral release of the patella this coupled with an imbrication gave us adequate patella tracking. Knee was flexed up and the trial polyethylene was removed. Final polyethylene was then opened and put back into place after appropriate trialing. Tourniquet was let down and hemostasis was obtained as well as possible. Lateral drain was placed. 1 minute chlorhexidine lavage was performed followed by 1 minute lavage of TXA and copious amounts of normal saline. Once this was completed the wound was closed in layer pandya fashion. We used #2 FiberWire to imbricate the medial retinaculum. Distally we used #1 Vicryl for final arthrotomy closure. Deep subcutaneous layer was closed with #1 Vicryl. Skin was closed with 2-0 interrupted Vicryl for the subcuticular layer and carri for final skin closure. A sterile compressive dressing was then placed. The patient was then awakened from anesthesia, transferred to the [facility] and transferred to the PACU for recovery. Post op plan Patient will restart her Plavix. She will be placed on aspirin 81 mg twice daily for additional DVT prophylaxis. Due to the previous difficulty with extension and with the physical therapy to work with the patient on extension but no flexion beyond 45 degrees. Patient will be placed in a knee immobilizer and to remain in the knee immobilizer when not with physical therapy. This will be for the first 2 weeks. At her 2-week postop visit we will remove the carri and continue with physical therapy for extension progressing her flexion 15 degrees every 2 weeks for a goal of 90 degrees flexion at 6 weeks. 6 weeks postop all restriction should be removed. She is weightbearing as tolerated. My physician bilingual legal assistant was a vital part of this case. He was important in appropriate retraction during the case, and protection of soft tissues during bony cuts. His intimate knowledge of the case and my steps aided in safe and expedient completion of the procedure as well as appropriate position of the leg during the case. He was also vital in assisting with closure under my direct supervision. Grafts/Implants Used: [place] X3 polyethylene TS 06/25 mm - Complications No intraoperative complications - Admit VTE Documentation VTE Present on Admission: No VTE Mechan Device Prophylaxis: SCD's, Thigh High FRANCI Hose VTE Pharm Prophylaxis ordered?: Yes
[2018-12-25 17:30] LABS: Bedside Glucose 128 mg/dL (70-110)
[2018-12-25] MEDS: Aspirin 81 MG TAB.CHEW PO (20:11)
[2018-12-25] MEDS: oxyCODONE 5 MG Tablet PO (20:16)
[2018-12-25] MEDS: Lisinopril 20 MG Tablet PO (22:34)
[2018-12-25] MEDS: Clopidogrel Bisulfate 75 MG Tablet PO (22:36)
[2018-12-25] MEDS: Metoprolol Tartrate 25 MG Tablet PO (22:36)
[2018-12-25] MEDS: Atorvastatin Calcium 40 MG Tablet PO (22:37)
[2018-12-25] MEDS: Senna/Docusate Sodium 1 Tablet 2 TABLET PO (22:38)
[2018-12-25] MEDS: tiZANidine HCl 2 MG Tablet 4 MG PO (22:39)
[2018-12-25] MEDS: Pantoprazole Sodium 40 MG Tablet PO (22:39)
[2018-12-25] MEDS: Ketorolac 15 MG/ML Vial IV (22:41)
[2018-12-25] MEDS: Cefazolin 1 GM/50 ML BAG IV (22:54)
[2018-12-25] MEDS: ALPRAZolam 0.5 MG Tablet 1 MG PO (22:56)
--- NOTE | 2018-12-25 23:09 | CON.PCM_ITS ---
Problem List (1) Presence of stent in coronary artery Status: Chronic Comment: 09/24/2009 bare-metal stent to RCA at [facility]; PTCA/LADARIUS to mid LAD 02/27/12 (2) Essential hypertension Status: Chronic Reason for Consult Date of Consultation: 12/25/18 Reason for Consultation: medical management History of Present Illness: The patient is a 63 year old F with a significant history of CVA; CAD status post stent; diabetes mellitus; left knee osteoarthritis; painful right revision total knee arthroplasty with flexion contracture who had right knee scar exc ision and poly-exchange on 12/25/2018. Internal medicine has been consulted for medical management. After the procedure as above patient has been able to get up to the side of her bed with assistance and has used the commode. She reports mild pain in her right knee. She denies any nausea or vomiting. Past Medical History Past Medical History (Chronic Problems): Chronic Problems (Last Reviewed 12/25/18 @ 23:21 by Osmin Godinez MD) Presence of stent in coronary artery (Chronic ~02/27/12) 09/24/2009 bare-metal stent to RCA at [facility]; PTCA/LADARIUS to mid LAD 02/27/12 Essential hypertension (Chronic) Atherosclerotic heart disease of [place] coronary artery without angina pectoris (Chronic) Sleep-disordered breathing (Chronic) Nocturnal hypoxemia (Chronic) Pulmonary hypertension (Chronic) Insomnia (Chronic) Morbid obesity (Chronic) Hyperlipidemia (Chronic) Medical History: Medical History (Last Reviewed 12/25/18 @ 23:23 by Osmin Godinez MD) Presence of stent in coronary artery (Chronic) Onset Date: ~02/27/12 Z95.5 09/24/2009 bare-metal stent to RCA at [facility]; PTCA/LADARIUS to mid LAD 02/27/12 Essential hypertension (Chronic) I10 Atherosclerotic heart disease of [place] coronary artery without angina pectoris (Chronic) I25.10 Sleep-disordered breathing (Chronic) G47.30 Nocturnal hypoxemia (Chronic) G47.34 Pulmonary hypertension (Chronic) I27.20 Insomnia (Chronic) G47.00 Morbid obesity (Chronic) E66.01 Hyperlipidemia (Chronic) E78.5 Anxiety F41.9 CVA (cerebral vascular accident) I63.9 2005 right sided Depression F32.9 Heart disease I51.9 Right sided cerebral infarction I63.9 Suicide attempt by drug ingestion T50.902A Metabolic encephalopathy (Resolved) G93.41 UTI (urinary tract infection) (Resolved) N39.0 Coronary artery disease (Inactive) I25.10 Hypertension (Inactive) I10 Allergies ciprofloxacin [From Cipro] Allergy (Verified 12/25/18 13:01) Unknown escitalopram oxalate [From Lexapro] Allergy (Verified 12/25/18 13:01) Unknown heparin Allergy (Verified 12/25/18 13:01) Unknown mupirocin [From Bactroban] Allergy (Verified 12/25/18 13:01) Unknown trazodone Allergy (Verified 12/25/18 13:01) Unknown adhesive tape Adverse Reaction (Verified 12/25/18 13:01) Other Home Medications: Ambulatory Orders Medication Instructions Recorded Clopidogrel Bisulfate [Plavix] 75 mg PO QHS 08/25/15 Sertraline HCl [Zoloft] 50 mg PO DAILY 08/25/15 Atorvastatin Calcium [Lipitor] 40 mg PO QHS 01/27/16 Pantoprazole Sodium [Protonix] 40 mg PO QHS 01/27/16 ALPRAZolam [Xanax] 1 mg PO BID 07/05/17 Duloxetine HCl 60 mg PO DAILY 07/05/17 ranitidine 150 mg tablet 150 mg PO QDAY 10/31/17 metoprolol tartrate 25 mg tablet 25 mg PO BID #180 tab 09/16/18 Tizanidine HCl [Zanaflex] 4 mg PO BID 10/15/18 Amlodipine Besylate [Norvasc] 5 mg PO QDAY 10/31/18 Aspirin [Aspirin, Baby] 81 mg PO BID 10/31/18 Acetaminophen [Tylenol Extra 500 mg PO Q4H PRN PRN #20 tab 11/01/18 Strength] Folic Acid 1 mg PO DAILY 12/13/18 Hydrocodone Bitart/Apap 5-325 1 tab PO TID 12/13/18 [[place] 5MG-325MG] Metformin HCl 500 mg PO BIDCM 12/13/18 lisinopril 20 mg tablet 20 mg PO BID #180 tab 12/24/18 Surgical History: Surgical History (Last Reviewed 12/25/18 @ 23:23 by Osmin Godinez MD) Presence of coronary angioplasty implant and graft Onset Date: ~02/27/12 Z95.5 09/24/2009 bare-metal stent to RCA at [facility]; PTCA/LADARIUS to mid LAD 02/27/12 H/O arthroscopy of right knee Z98.890 History of cholecystectomy Z90.49 History of hysterectomy Z90.710 History of knee replacement Z96.659 History of tonsillectomy Z90.89 Status post total right knee replacement Onset Date: ~06/26/18 Z96.651 Surgical History: cholecystectomy, hysterectomy, total knee arthroplasty - June [address] 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 bld Lives: Spouse/ Significant Other Smoking Status: Never smoker Tobacco Use: Non-smoker Alcohol: None - *Family History Maternal Family History: Family History (Last Reviewed 12/25/18 @ 23:21 by Osmin Godinez MD) Mother CAD (coronary artery disease) Hypertension Father CAD (coronary artery disease) Brother Myocardial infarction Hypertension History Items: No pertinent history Paternal Family History: Family History (Last Reviewed 12/25/18 @ 23:21 by Osmin Godinez MD) Mother CAD (coronary artery disease) Hypertension Father CAD (coronary artery disease) Brother Myocardial infarction Hypertension History Items: No pertinent history Review of Systems Constitutional: Denies: Chills, Fever, Weight Change HEENT: Denies: Head Aches, Sinus Congestion, Sinus Drainage Cardiovascular: Denies: Chest Pain, Palpitations Respiratory: Denies: Cough, Shortness of breath at rest, Sputum production Gastrointestinal: Denies: Abdominal Pain, Nausea, Vomiting Genitourinary: Denies: Dysuria Musculoskeletal: Reports: Joint Pain, Joint Tenderness Skin: Denies: Rash, Wounds Neurological: Denies: Numbness, Tingling, Focal weakness Psychiatric: Denies: Anxiety, Depression, Homicidal Ideations, Suicidal Ideations Hematologic/ Lymphatic: Denies: Easy Bruising, Easy Bleeding - Physical Exam General: Alert, Oriented x3, Cooperative HEENT: Atraumatic, PERRLA, EOMI, Normocephalic Neck: Supple, No JVD, Negative Carotid Bruits Lungs: Clear to auscultation, Normal air movement Cardiovascular: Regular rate, No murmurs Abdomen: Bowel Sounds Present, Soft, Non Tender Extremities: No edema, Capillary Refill Less than 3 Seconds, - - Right knee with splint; ice pack; FRANCI hose and with Hemovac emanating from knee Skin: No rashes, No breakdown Musculoskeletal: No Muscle Wasting Neurological: Cranial nerves II-XII grossly intact Psych/Mental Status: Normal Affect, Appropriate Vital Signs Temp Pulse Resp BP Pulse Ox 98.1 F 72 16 132/76 H 95 12/25/18 23:00 12/25/18 23:00 12/25/18 23:00 12/25/18 23:00 12/25/18 23:00 Oxygen Flow Rate (L/min) 6 Oxygen Delivery Method Room Air Weight: 120 kg Body Mass Index (BMI) 48.4 Finger Stick Blood Glucose 128 Intake and Output for Last 24 Hours 12/23/18 12/24/18 12/25/18 23:59 23:59 23:59 Intake Total 1930.00 / 1930.00 Output Total 30 / 30 Balance 1900.00 / 1900.00 POC Glucose 12/25/18 12/25/18 17:07 12:59 POC Glucose 128 H 94 Assessment/Plan All Active Problems (Last Reviewed 12/25/18 @ 23:21 by Osmin Godinez MD) Metabolic encephalopathy (Resolved) Pre-operative cardiovascular examination (Resolved) UTI (urinary tract infection) (Resolved) The patient is a 63 year old F with a significant history of CVA; CAD status post stent; diabetes mellitus; left knee osteoarthritis;Painful right revision total knee arthroplasty with flexion contracture who had right knee scar excision and poly-exchange on 12/25/2018 and who is being followed up for medical management of chronic conditions while in the hospital setting. Painful right revision total knee arthroplasty with flexion contracture s/p right knee scar excision and poly-exchange on 12/25/2018 Postop day 0 On oxycodone PRN; morphine IV as needed on antiemetics and scheduled bowel protocol On PRN Toradol Her right knee with ice pack; splint and with Hemovac Patient receiving cefazolin perioperatively Acute management per primary team Osteoarthritis of left knee Patient received a corticosteroid injection in the left knee before her surgery on her right knee on 12/25/2018 Tizanidine continued Anxiety and Depression Xanax continued Duloxetine continued Zoloft continued Hypertension Her blood pressure is not within goal Amlodipine and lisinopril continued Metoprolol continued Trend blood pressure and adjust blood pressure medication as needed history Prediabetes Blood glucose is within goal Metformin continued CAD status post stent Aspirin and Plavix continued. Reportedly aspirin and Plavix was held before surgery History of CVA On aspirin and Plavix as above GERD Protonix continued DVT prophylaxis On FRANCI cummings and SCD Code Visit Inpatient E&M: [id number] Subs Hosp L2
[2018-12-26 00:11] LABS: Bedside Glucose 176 mg/dL (70-110)
[2018-12-26 02:26] VITALS: BP 113/60; PULSE 54; RESP 16; TEMP 36.3; O2SAT 95
[2018-12-26 05:43] LABS: Hematocrit 30.6 % (37-47); Hemoglobin 9.3 g/dL (12.0-15.0); Mean Corp Hgb Conc 30.4 g/dL (32-36); Mean Corpuscular Hgb 24.9 pg (27.0-32.0); Mean Corpuscular Volume 81.8 fL (81-99); Mean Platelet Vol. 10.2 fl (6.2-12.0); Platelet Count 234 K/mm3 (150-450); RBC Distribution Width CV 16.5 % (11.6-14.6); RBC Distribution Width SD 49.1 fl (35.1-43.9); Red Blood Count 3.74 M/mm3 (4.2-5.4); White Blood Count 9.6 K/mm3 (4.4-11.0)
[2018-12-26] MEDS: Cefazolin 1 GM/50 ML BAG IV (05:57)
[2018-12-26] MEDS: Acetaminophen 500 MG Tablet 1000 MG PO (06:06)
[2018-12-26 06:12] LABS: Anion Gap 10 (5-15); BUN 17 mg/dL (7-18); BUN/Creat Ratio 16.7 RATIO (10-20); Calcium,Total 8.3 mg/dL (8.5-10.1); Chloride 107 mmol/L (98-107); Creatinine, Serum 1.02 mg/dL (0.55-1.02); EST Glomerular Filtration Rate 58 mL/min (>60); Est Glom Filt Rate - Afr Amer 70 mL/min (>60); Estimated Creatinine Clearance 43.49 ml/min; Glucose 122 mg/dL (74-106); Potassium 4.7 mmol/L (3.5-5.1); Sodium Level 141 mmol/L (136-145)
[2018-12-26 08:30] VITALS: BP 130/70; PULSE 60; RESP 18; TEMP 36.7; O2SAT 94
[2018-12-26] MEDS: Aspirin 81 MG TAB.CHEW PO (09:07)
--- NOTE | 2018-12-26 09:09 | PN_ITS ---
Subjective: Chief complaint: Follow-up after consultation for postoperative medical management. Patient seen and examined. No acute events overnight. She denied any right knee pain. She is asymptomatic, no complaints. Her vital signs are stable. - Physical Exam General: Alert, Oriented x3, Cooperative, No apparent distress HEENT: Atraumatic, PERRLA, EOMI, Normocephalic Oral: Moist Mucosa, No Gingival or Mucosal Lesions/ Ulcerations Neck: Supple, No JVD, Negative Carotid Bruits, Trachea Midline, Thyroid Normal Size and Texture Lungs: Clear to auscultation, Normal air movement, No rhonchi, No wheeze, No rales, Diminished Cardiovascular: Regular rate, Regular Rhythm, Normal S1, Normal S2, PMI Normal Abdomen: Bowel Sounds Present, Soft, Non Tender, Non-Distended, No Hepato- splenomegaly, Obese Extremities: No clubbing, No cyanosis, No edema Skin: No rashes, No breakdown Lymphatic: No Cervical, Supraclavicular, or Inguinal Adenopathy Neurological: Cranial nerves II-XII grossly intact, Motor Exam 5/5 strength throughout Psych/Mental Status: Normal Affect, Appropriate, Alert and oriented to time, place, person, mood and affect Vital Signs Temp Pulse Resp BP Pulse Ox 97.4 F L 54 L 16 113/60 95 12/26/18 02:26 12/26/18 02:26 12/26/18 02:26 12/26/18 02:26 12/26/18 02:26 Oxygen Flow Rate (L/min) 6 Oxygen Delivery Method Room Air Weight: 264 lb 8.875 oz Body Mass Index (BMI) 48.4 Finger Stick Blood Glucose 128 Intake and Output for Last 24 Hours 12/24/18 12/25/18 12/26/18 23:59 23:59 23:59 Intake Total 2230.00 / 2230.00 559.33 / 559.33 Output Total 730 / 730 200 / 200 Balance 1500.00 / 1500.00 359.33 / 359.33 Laboratory Tests Past 24 Hrs 12/26/18 12/26/18 05:06 05:06 WBC 9.6 RBC 3.74 L Hgb 9.3 L Hct 30.6 L MCV 81.8 MCH 24.9 L MCHC 30.4 L RDW Std Deviation 49.1 H RDW Coeff of Uriel 16.5 H Plt Count 234 MPV 10.2 Sodium 141 Potassium 4.7 Chloride 107 Carbon Dioxide 24.0 Anion Gap 10 BUN 17 Creatinine 1.02 Estim Creat Clear Calc 43.49 Est GFR (MDRD) Af Amer 70 Est GFR (MDRD) Non-Af 58 L BUN/Creatinine Ratio 16.7 Glucose 122 H Calcium 8.3 L POC Glucose 12/25/18 12/25/18 12/25/18 22:59 17:07 12:59 POC Glucose 176 H 128 H 94 Medical Necessity - Tobacco Use Smoking Status: Never smoker Tobacco Use: Non-smoker Assessment/Plan This is a 63 years old female patient underwent revision of right total knee replacement and I am seeing this patient for consultation for postoperative medical management. #1 status post revision of right total knee replacement: Due to right knee arthrofibrosis and patellofemoral maltracking. Postoperative day 1. She is on IV morphine and OxyIR PRN for pain, pain is well controlled. Her vital signs are stable. Routine blood work was remarkable for chronic anemia with stable hemoglobin, otherwise normal. Orthopedic surgery is managing. #2 CAD status post stents: Stable, no acute issues. Continue aspirin, statins, Plavix, lisinopril and metoprolol. #3 type 2 diabetes mellitus: Patient is diabetic based on hemoglobin A1c of 7.5%. She is on metformin. Blood sugar stable. Plan: Start insulin sliding scale, Accu-Cheks q. before meals at bedtime. #4 hypertension: Blood pressure stable, continue Norvasc, lisinopril and metoprolol. #5 hyperlipidemia: Stable, continue statins. #6 history of CVA: With no residual deficit. Continue aspirin, Plavix and statins. #8 anxiety/depression: Stable, continue Xanax, Cymbalta and Zoloft. #9 DVT prophylaxis: She is on aspirin twice daily as well as Plavix. This note was generated with [employer] dictation software. It may contain incorrect words, spelling, and punctuation that were not noted in checking the note before signing. Code Visit Inpatient E&M: 21923 Subs Hosp L2
[2018-12-26] MEDS: Folic Acid 1 MG Tablet PO (09:11)
[2018-12-26] MEDS: metFORMIN HCl 500 MG Tablet PO (09:11)
[2018-12-26] MEDS: DULoxetine Hcl 60 MG Capsule PO (09:11)
[2018-12-26 09:12] VITALS: PULSE 60
[2018-12-26] MEDS: Metoprolol Tartrate 25 MG Tablet PO (09:12)
[2018-12-26] MEDS: Senna/Docusate Sodium 1 Tablet 2 TABLET PO (09:13)
[2018-12-26] MEDS: amLODIPine 5 MG Tablet PO (09:13)
[2018-12-26] MEDS: tiZANidine HCl 2 MG Tablet 4 MG PO (09:13)
[2018-12-26] MEDS: Lisinopril 20 MG Tablet PO (09:14)
[2018-12-26] MEDS: Sertraline 50 MG Tablet PO (09:14)
[2018-12-26] MEDS: ALPRAZolam 0.5 MG Tablet 1 MG PO (09:20)
--- NOTE | 2018-12-26 10:15 | PN.ORTHO_ITS ---
Subjective: The patient was sitting in bedside chair upon examination. Patient denies any chest pain, shortness of breath, dizziness, lightheadedness, nausea or vomiting, or calf pain. Pain is controlled on medications. No adverse overnight events. Overall patient is doing well and wishes to go home today.. Objective: Vital signs stable and afebrile. Patient is able to plantarflex and dorsiflex actively. Sensation is intact to light touch to saphenous, sural, superficial and deep peroneal, and tibial distribution. Dressing is clean dry and intact. Negative Homans bilaterally, negative signs and symptoms of DVT. - Physical Exam General: Alert, Oriented x3, Cooperative, No apparent distress Vital Signs Temp Pulse Resp BP Pulse Ox 98.1 F 60 18 130/70 H 94 12/26/18 08:30 12/26/18 09:12 12/26/18 08:30 12/26/18 08:30 12/26/18 08:30 Oxygen Flow Rate (L/min) 6 Oxygen Delivery Method Room Air Weight: 120 kg Body Mass Index (BMI) 48.4 Finger Stick Blood Glucose 128 Intake and Output for Last 24 Hours 12/24/18 12/25/18 12/26/18 23:59 23:59 23:59 Intake Total 2230.00 / 2230.00 559.33 / 559.33 Output Total 730 / 730 200 / 200 Balance 1500.00 / 1500.00 359.33 / 359.33 Laboratory Tests Past 24 Hrs 12/26/18 12/26/18 05:06 05:06 WBC 9.6 RBC 3.74 L Hgb 9.3 L Hct 30.6 L MCV 81.8 MCH 24.9 L MCHC 30.4 L RDW Std Deviation 49.1 H RDW Coeff of Uriel 16.5 H Plt Count 234 MPV 10.2 Sodium 141 Potassium 4.7 Chloride 107 Carbon Dioxide 24.0 Anion Gap 10 BUN 17 Creatinine 1.02 Estim Creat Clear Calc 43.49 Est GFR (MDRD) Af Amer 70 Est GFR (MDRD) Non-Af 58 L BUN/Creatinine Ratio 16.7 Glucose 122 H Calcium 8.3 L POC Glucose 12/25/18 12/25/18 12/25/18 22:59 17:07 12:59 POC Glucose 176 H 128 H 94 Medical Necessity - Tobacco Use Smoking Status: Never smoker Tobacco Use: Non-smoker Assessment/Plan 1. S/P left direct anterior total hip arthroplasty POD #1 2. Continue Pain Medications: Tylenol and OxyIR 3. DVT Prophylaxis: Aspirin 81 mg twice daily for 4 weeks postoperatively 4. PT/OT: Weightbearing as tolerated 5. H & H: 9.4/28.3, asymptomatic 6. Reactive leukocytosis: Currently 14.7, afebrile. Patient did receive Decadron intraoperatively 7. Encouraged Incentive Spirometry 8. Disposition: Orthopedically stable, plan will be for discharge home today. Prescriptions will be E scribed to [facility]. Patient will follow-up per postop instructions. Patient has outpatient physical therapy established..
--- NOTE | 2018-12-26 10:22 | PCM.PN.ORT ---
Subjective: The patient was sitting in bed upon examination. Patient denies any chest pain, shortness of breath, dizziness, lightheadedness, nausea or vomiting, or calf pain. Pain is controlled on medications. No adverse overnight events. Overall patient is doing very well today. Her pain is well controlled. Patient is a good spirits. Patient does wish to go home today. She currently has a Hemovac drain and knee immobilizer for the right lower extremity. Objective: Vital signs stable and afebrile. Patient is able to plantarflex and dorsiflex actively. Sensation is intact to light touch to saphenous, sural, superficial and deep peroneal, and tibial distribution. Dressing is clean dry and intact. Knee immobilizer for the right lower extremity is in place Hemovac drain in place which has not been emptied since surgery. There is approximately 25 to 50% full of blood. Negative Homans bilaterally, negative signs and symptoms of DVT. - Physical Exam General: Alert, Oriented x3, Cooperative, No apparent distress Vital Signs Temp Pulse Resp BP Pulse Ox 98.1 F 60 18 130/70 H 94 12/26/18 08:30 12/26/18 09:12 12/26/18 08:30 12/26/18 08:30 12/26/18 08:30 Oxygen Flow Rate (L/min) 6 Oxygen Delivery Method Room Air Weight: 120 kg Body Mass Index (BMI) 48.4 Finger Stick Blood Glucose 128 Intake and Output for Last 24 Hours 12/24/18 12/25/18 12/26/18 23:59 23:59 23:59 Intake Total 2230.00 / 2230.00 559.33 / 559.33 Output Total 730 / 730 200 / 200 Balance 1500.00 / 1500.00 359.33 / 359.33 Laboratory Tests Past 24 Hrs 12/26/18 12/26/18 05:06 05:06 WBC 9.6 RBC 3.74 L Hgb 9.3 L Hct 30.6 L MCV 81.8 MCH 24.9 L MCHC 30.4 L RDW Std Deviation 49.1 H RDW Coeff of Uriel 16.5 H Plt Count 234 MPV 10.2 Sodium 141 Potassium 4.7 Chloride 107 Carbon Dioxide 24.0 Anion Gap 10 BUN 17 Creatinine 1.02 Estim Creat Clear Calc 43.49 Est GFR (MDRD) Af Amer 70 Est GFR (MDRD) Non-Af 58 L BUN/Creatinine Ratio 16.7 Glucose 122 H Calcium 8.3 L POC Glucose 12/25/18 12/25/18 12/25/18 22:59 17:07 12:59 POC Glucose 176 H 128 H 94 Medical Necessity - Tobacco Use Smoking Status: Never smoker Tobacco Use: Non-smoker Assessment/Plan 1. S/P right knee revision with scar excision and polyethylene exchange and medial retinaculum imbrication POD #1 2. Continue Pain Medications: Tylenol and OxyIR 3. DVT Prophylaxis: Aspirin 81 mg twice daily for 4 weeks postoperatively 4. PT/OT: Patient will continue with knee immobilizer at all times. It is okay for patient to come out a knee immobilizer only with physical therapy for the first 2 weeks. There is to be no flexion beyond 45 degrees for the first 2 weeks postoperatively. At her 2-week postop visit we will continue with physical therapy for extension progressing her flexion 15 degrees every 2 weeks for a goal of 90 degrees of flexion by 6 weeks. At 6 weeks postop all restrictions will be removed. Patient will be weightbearing as tolerated with the knee immobilizer 5. H & H: 9.3/30.6, asymptomatic 6. Encouraged Incentive Spirometry 7. Continue postoperative medical management per medicine: Discussed with hospitalist 8. Disposition: Orthopedically stable, at today's visit the Hemovac drain was removed. Steri-Strips were placed over the incision. Compressive dressing was applied to the right lower extremity. She was placed back in her knee immobilizer. Patient will be discharged home today after physical therapy. She will continue with above restrictions with physical therapy. Prescriptions will be sent to [facility] pharmacy. She has established physical therapy outpatient on December 30, 2018 at [facility] [place].
--- NOTE | 2018-12-26 10:31 | PCM.DC.TKR ---
Discharge Diet: No Restrictions Discharge Activity: May Not Drive May shower in (days): 1 - Turn dressing away from water Ice area for (Minutes): 20 - every hour while awake. Weight Bearing Status: Weight bearing as tolerated - With knee immobilizer in place right lower extremity Elevate: Operative Extremity Additional Activity Instructions:: Wear elastic stockings for 2 weeks after your surgery. Call your doctor if your incision/area has: Continuous Slow Oozing, Sudden Increased Bleeding, Increased Pain/ Swelling, Increased Redness, Foul Smelling Discharge Call your doctor if you observe: Fever of 101 or Higher, Coldness, Increased Pain, Numbness or Tingling, Change in Color, Calf discomfort, Uncontrolled pain Remove Dressing in (days):: 4 - Okay to remove on December 30, 2018 Additional Instructions: Follow [facility] postop instructions Physical therapy: Plan will be for knee immobilizer at all times for the first 2 weeks when not in physical therapy. Physical therapy can remove the knee immobilizer and work on extension and flexion exercises. The first 2 weeks flexion will be restricted with no flexion beyond 45 degrees. After 2-week postop visit we will continue with physical therapy for extension range of motion progressing her flexion 15 degrees every 2 weeks for a goal of 90 degrees flexion at 6 weeks. At 6 weeks all postop restrictions will be removed. Patient is weightbearing as tolerated in the knee immobilizer Allergies/Adverse Reactions: Allergies ciprofloxacin [From Cipro] Allergy (Verified 12/25/18 13:01) Unknown escitalopram oxalate [From Lexapro] Allergy (Verified 12/25/18 13:01) Unknown heparin Allergy (Verified 12/25/18 13:01) Unknown mupirocin [From Bactroban] Allergy (Verified 12/25/18 13:01) Unknown trazodone Allergy (Verified 12/25/18 13:01) Unknown adhesive tape Adverse Reaction (Verified 12/25/18 13:01) Other Medications to take at Discharge Clopidogrel Bisulfate [Plavix] 75 mg PO QHS 08/25/15 Sertraline HCl [Zoloft] 50 mg PO DAILY 08/25/15 Atorvastatin Calcium [Lipitor] 40 mg PO QHS 01/27/16 Pantoprazole Sodium [Protonix] 40 mg PO QHS 01/27/16 ALPRAZolam [Xanax] 1 mg PO BID 07/05/17 Duloxetine HCl 60 mg PO DAILY 07/05/17 ranitidine 150 mg tablet 150 mg PO QDAY 10/31/17 metoprolol tartrate 25 mg tablet 25 mg PO BID #180 tab 09/16/18 Tizanidine HCl [Zanaflex] 4 mg PO BID 10/15/18 Amlodipine Besylate [Norvasc] 5 mg PO QDAY 10/31/18 Folic Acid 1 mg PO DAILY 12/13/18 Metformin HCl 500 mg PO BIDCM 12/13/18 lisinopril 20 mg tablet 20 mg PO BID #180 tab 12/24/18 Acetaminophen [Tylenol] 1,000 mg PO Q8 14 Days #100 tab 12/26/18 Aspirin [Aspirin, Baby] 81 mg PO BIDCM 30 Days #60 tab.chew 12/26/18 Oxycodone [Oxyir] 5 - 10 mg PO Q4H PRN PRN 4 Days #48 tablet 12/26/18 Senna/Docusate Sodium [Senokot-S] 2 tab PO BID #20 tab 12/26/18 The following prescriptions were given: Aspirin [Aspirin, Baby] 81 mg PO BIDCM 30 Days #60 tab.chew [facility]: [facility] Oxycodone [Oxyir] 5 - 10 mg PO Q4H PRN PRN 4 Days #48 tablet PRN Reason: Mod-Severe Pain (-01/16) Transmission Status: Received by [facility]STY [facility] Senna/Docusate Sodium [Senokot-S] 2 tab PO BID #20 tab Transmission Status: Pending to [facility]STY [facility] Acetaminophen [Tylenol] 1,000 mg PO Q8 14 Days #100 tab Transmission Status: [facility] Primary Care Physician: Sudheer Lion MD [Primary Care Provider] - Test Results: Test results from this visit will be discussed in further detail at your follow-up appointment, if applicable. Please Follow Up With: Francy Peña Physical Therapy When: 12/30/18 @ 10:00 am with [place] Please Follow Up With: Shailesh Rangel PA-C When: 01/08/19 @ 9:00 am
--- NOTE | 2018-12-26 11:50 | CASEMGMT ---
[facility]OO[facility] Face to Face with patient for initial transition planning/care coordination assessment. RN COLEMAN introduced self and role at [facility]. Patient sitting in chair, drowsy, at bedside. Patient gave permission for to participate in assessment and is able to answer all questions appropriately. Care providers, pharmacy, and demographics verified. wishes for patient to discharge home and is setup with [facility] for outpatient therapy. states he has no further needs or concerns at this time. CM to follow for discharge planning needs that may arise. PCP: Amisha Specialists: Irena, ortho; Codey, multimedia developer; Lety, Neurology; Meaghan, urology Preferred Pharmacy: [facility] Insurance: [employer] Prescription Benefit: yes Living Will/HPOA: yes Deyvi HPOA LNOK: Living Arrangements: patient lives with in 1 story home with 4 steps to enter the home. Transportation: DME/HHC: Patient has walker, wheelchair, power chair, and grab bars. Patient is setup with [facility] for outpatient therapy for Sunday Disposition Plan: Patient to discharge home with outpatient therapy, family support, and follow-up plans in place. Jaymie MORRIS, RN, CM
== END 2018-12-26 15:02 | disposition home or self-care (01) | DRG 489 ==
LOC: ACINP 12:09 → MS3 12:44
PROVIDERS: Admitting Provider Specialist; Family Provider Family Medicine; PCP Family Medicine; Referring Provider Specialist; Visit Provider Specialist
PROC: 0SUV09Z Supplement Right Knee Joint, Tibial Surface with Liner, Open Approach (ICD-10-PCS; CPT 27487; principal; 2018-12-25 14:25)
DX: T84.84XA Pain due to internal orthopedic prosthetic devices, implants and grafts, initial encounter (principal); M24.661 Ankylosis, right knee; Z96.651 Presence of right artificial knee joint; M17.12 Unilateral primary osteoarthritis, left knee; Z86.73 Personal history of transient ischemic attack (TIA), and cerebral infarction without residual deficits; I10 Essential (primary) hypertension; Z95.5 Presence of coronary angioplasty implant and graft; Z79.02 Long term (current) use of antithrombotics/antiplatelets; Z79.891 Long term (current) use of opiate analgesic; Z79.84 Long term (current) use of oral hypoglycemic drugs; Z79.899 Other long term (current) drug therapy; Y83.1 Surgical operation with implant of artificial internal device as the cause of abnormal reaction of the patient, or of later complication, without mention of misadventure at the time of the procedure; K21.9 Gastro-esophageal reflux disease without esophagitis; E11.9 Type 2 diabetes mellitus without complications; F41.9 Anxiety disorder, unspecified; F32.9 Major depressive disorder, single episode, unspecified; G25.81 Restless legs syndrome; I25.10 Atherosclerotic heart disease of native coronary artery without angina pectoris; I27.20 Pulmonary hypertension, unspecified; D64.9 Anemia, unspecified; E78.5 Hyperlipidemia, unspecified
CPT/HCPCS: 36415; 73560; 80048; 82962; 85027; 87015; 87070; 87075; 87081; 87102; 87116; 87176; 87205; 87206; 97162; 97166; 97530; 97802; 99251; C1776; J7120; G0463

== ENCOUNTER 2019-01-16 01:22 | Emergency (ER) | payer MEDICARE, MEDICAID, SELFPAY ==
[2019-01-08 11:24] VITALS: BMI 47.5
[2019-01-16 01:24] VITALS: BP 115/57; PULSE 63; RESP 16; TEMP 37; O2SAT 97; BMI 50.7
--- NOTE | 2019-01-16 01:55 | ED.DCSUM_ITS ---
History of Present Illness Chief Complaint: Fall Informant: Patient, Family Onset: Today Narrative: Presents for mechanical fall with wound dehiscence of the right knee prior to arrival. States mildly bumped her left cheek. No headache visual changes neck or back pain. Bleeding controlled. Tetanus unknown. Status post right knee revision December [address] Osborn, had a follow-up a week ago with staple removal. States happened before on her first knee replacement with a fall. She is on aspirin and Plavix. Prior similar symptoms: Yes Past Medical History - Allergies and Home Meds Allergies/Adverse Reactions: Allergies ciprofloxacin [From Cipro] Allergy (Verified 01/16/19 01:24) Unknown escitalopram oxalate [From Lexapro] Allergy (Verified 01/16/19 01:24) Unknown heparin Allergy (Verified 01/16/19:24) Unknown mupirocin [From Bactroban] Allergy (Verified 01/16/19:24) Unknown trazodone Allergy (Verified 01/16/19:24) Unknown adhesive tape Adverse Reaction (Verified 01/16/19:24) Other Primary Care Physician: Sudheer Lion MD [Primary Care Provider] - Surgical History: cholecystectomy, hysterectomy, total knee arthroplasty - June [address] Chua, tonsillectomy Smoking Status: Never smoker - Family History Maternal Family History: Family History (Last Reviewed 01/08/19 @ 11:29 by Susie Pinon) Mother CAD (coronary artery disease) Hypertension Father CAD (coronary artery disease) Brother Myocardial infarction Hypertension Family History: Reports: No pertinent history Paternal Family History: Family History (Last Reviewed 01/08/19 @ 11:29 by Susie Pinon) Mother CAD (coronary artery disease) Hypertension Father CAD (coronary artery disease) Brother Myocardial infarction Hypertension Family History: Reports: No pertinent history Review of Systems General: Denies: Chills, Fever, Sweats Eyes: Denies: Visual changes - bilaterally, Diplopia ENT: Denies: Rhinorrhea, Sore throat Cardiovascular: Denies: Chest pain, Palpitations Respiratory: Denies: Dyspnea, Cough, Dyspnea on exertion Gastrointestinal: Denies: Abdominal pain, Nausea, Vomiting, Diarrhea, Melena, Hematochezia Genitourinary: Denies: Dysuria, Hematuria, Frequency Musculoskeletal: Denies: Back pain, Extremity Pain Skin: Reports: Wounds. Denies: Rash Neurological: Denies: Headache, Weakness, Numbness Physical Exam Vital Signs/Narrative: Vital Signs Temp Pulse Resp BP Pulse Ox 01/16/19 01:24 98.6 F 63 16 115/57 L 97 Inital Vital Signs reviewed: Yes General: Well nourished, Well developed, No Acute Distress Head: Normocephalic, Atraumatic Eyes: Perrl, EOMI ENT: Moist mucous membranes, No rhinorrhea Neck: Supple, Nontender Cardiovascular: Regular rate, Regular rhythm, No murmurs Respiratory: No distress, CTA bilaterally, Chest nontender Abdomen: Soft, Nontender, Nondistended, Normal bowel sounds Back: Nontender, Normal Inspection Extremities: Nontender, No edema Skin: Normal color, No rash, - - Right knee: 5 cm wound dehiscence along the incision line infrapatellar. Bleeding controlled. No deformities of the knee. Neurovascular intact distally. Neurological: Alert, Oriented x3, Cranial nerves II-XII grossly intact, Normal Strength, Normal Sensation Psychological: Normal affect, Normal Mood Diagnostic/Tx/Re-eval - Medical Decision Making Patient slightly bumped her cheek, she has no focal deficits, do not feel imaging is necessary of the head. Patient with a incisional dehiscence of 5 cm, copiously flushed, subcutaneous suture x2 with 6 yoselyn placed. Wound care discussed. She will maintain her postsurgical precautions she will call her surgeon's office for discussion of rehab as planned on Sunday. She will follow- up as an outpatient for staple removal. All questions were answered. Tetanus was updated in the ED. Procedures - Lacerations No standard instances Length: 1.97 in Depth: Fascia Shape: Linear Prep: Sterile Conditions Laceration repair: Foreign material removed, Lidocaine, Subcutaneous sutures Irrigated (ml): 250 Number of Sutures/Yoselyn: 5 - yoselyn Suture Information: Vicryl, 4-0 Comment: Normal sterile conditions. 5 cc 1% lidocaine for local analgesia. Copiously flushed with normal saline, there was 2 broke in Vicryl sutures from his surgery, this was trimmed away, two 4-0 subcutaneous Vicryl sutures were placed to help with approximation, total of 6 yoselyn were placed for skin approximation. Bacitracin placed, dressing placed. Patient taught procedure well. ED Disposition - Plan for ED Patient: Disposition: Home or Assisted Living Diagnosis: Wound dehiscence, surgical, Tetanus toxoid vaccination administered at current visit Instructions: LACERATION, Extrem (Suture, Staple or Tape) Referrals: Sudheer Lion MD [Primary Care Provider] - Wilber Osborn MD [STAFF PHYSICIAN] - 10-14 Days suture removal
[2019-01-16] MEDS: Diphth,Pertuss(Acell),Tet Vac 0.5 ML Vial IM (02:25)
== END 2019-01-16 02:49 | disposition home or self-care (01) ==
LOC: ED 02:46
PROVIDERS: Emergency Provider Emergency Medicine; Family Provider Family Medicine; PCP Family Medicine
DX: T81.31XA Disruption of external operation (surgical) wound, not elsewhere classified, initial encounter (principal); Z96.651 Presence of right artificial knee joint; Z79.82 Long term (current) use of aspirin; Z79.02 Long term (current) use of antithrombotics/antiplatelets; Z23 Encounter for immunization
CPT/HCPCS: 12020; 90715; 99284

== ENCOUNTER → 2019-01-23 | Outpatient (CLI) | payer MEDICARE, OTHER, SELFPAY ==
[2019-01-16 01:24] VITALS: BMI 50.7
--- NOTE | 2019-01-23 13:01 | RAD_ITS ---
STUDY: X-RAY - LEFT KNEE REASON FOR EXAM: Left knee pain. TECHNIQUE: 4 view(s) of the knee. COMPARISON: Radiographs 11/11/2018. FINDINGS: Normal visualized distal femur. Normal visualized proximal tibia and fibula. Normal proximal tibiofibular articulation. Normal medial femorotibial compartment. Normal lateral femorotibial compartment. Normal patellofemoral articulation. The soft tissue structures are unremarkable. RAD/Knee 4 or More Views IMPRESSION: Normal x-ray examination of the left knee. Electronically Signed: Abhijit Schmidt MD at 14:50 EDT Tel , Service support ,
== END | disposition home or self-care (01) ==
LOC: MTRAD 13:00
PROVIDERS: Family Provider Family Medicine; PCP Family Medicine; Referring Provider Anesthesiology Pain Medicine; Visit Provider Anesthesiology Pain Medicine
DX: M25.562 Pain in left knee (principal)
CPT/HCPCS: 73564

== ENCOUNTER → 2019-01-27 | Outpatient (CLI) | payer MEDICARE, OTHER, SELFPAY ==
[2019-01-08 11:24] VITALS: BMI 47.5
[2019-01-16 01:24] VITALS: BMI 50.7
--- NOTE | 2019-01-27 17:33 | STRESSREP ---
Stress Test Report Date: 01-27-19 Procedure: Pharmacologic stress nuclear imaging study Indications: Chest pain; CAD; PCI Consent: Per the patient Procedure: The patient underwent pharmacologic (Regadenoson) evaluation with a peak heart rate of 77 beats per minute (49 %predicted maximal heart rate) and a peak blood pressure of 154/70 mmHg. The baseline ECG demonstrated sinus rhythm. The peak pharmacologic ECG demonstrated no obvious ECG changes. There was a rare PAC during infusion. There was no complaint of chest discomfort during pharmacologic infusion or recovery. The examination was discontinued secondary to completion of protocol. Impression: 1. Pharmacologic (Regadenoson) evaluation 2. Peak pharmacologic ECG with no obvious ECG changes. 3. There was a rare PAC during infusion. 4. Nuclear images pending Myocardial perfusion imaging study: Technique: The patient was injected with 15.0 millicuries of technetium 99m Cardiolite and subsequently rest SPECT Cardiolite nuclear imaging was obtained in the horizontal long, vertical long, and short axis views. The patient underwent pharmacologic (Regadenoson) evaluation with a peak heart rate of 77 beats per minute (49 % percent predicted maximal heart rate) and a peak blood pressure of 154/70 mmHg. The patient was injected with 45.0 millicuries of technetium 99m Cardiolite and subsequently stress SPECT Cardiolite nuclear imaging was obtained in the horizontal long, vertical long, and short axis views. A gated Cardiolite study at peak stress was obtained. Interpretation: Rest and stress SPECT Cardiolite nuclear imaging status post realignment, normalization, and attenuation correction demonstrate demonstrate the appearance of subtle diminished tracer uptake in portions of the mid anterior segments at rest which appear to be less prominent/improved status post stress. There is end systolic thickening and brightening. The gated Cardiolite study demonstrates myocardial thickening and inward wall motion. The reported LVEF is 83 %. Impression: 1. Rest and stress SPECT currently nuclear imaging demonstrate myocardial perfusion changes at rest which appear to be less prominent/improved status post stress appearing compatible shifting soft tissue attenuation/artifact with no myocardial perfusion changes considered diagnostic for associated stress-induced myocardial ischemia. 2. The gated Cardiolite study reports an LVEF of 83 %. This note was generated with [employer] software. It may contain incorrect words, spelling, and punctuation that were not noted in checking the note before signing.
== END | disposition home or self-care (01) ==
LOC: CVS 06:42
PROVIDERS: Family Provider Family Medicine; PCP Family Medicine; Referring Provider Internal Medicine Cardiovascular Disease; Visit Provider Internal Medicine Cardiovascular Disease
DX: R07.9 Chest pain, unspecified (principal); I25.10 Atherosclerotic heart disease of native coronary artery without angina pectoris; Z95.5 Presence of coronary angioplasty implant and graft
CPT/HCPCS: 78452; 93017; A9500; A4216; J2785

== ENCOUNTER → 2019-02-04 | Outpatient (CLI) | payer MEDICARE, OTHER, SELFPAY ==
[2019-01-16 01:24] VITALS: BMI 50.7
[2019-02-04 14:02] LABS: Anion Gap 8 (5-15); BUN 22 mg/dL (7-18); BUN/Creat Ratio 17.7 RATIO (10-20); Calcium,Total 9.6 mg/dL (8.5-10.1); Chloride 103 mmol/L (98-107); Cholesterol 164 mg/dL (200); Creatinine, Serum 1.24 mg/dL (0.55-1.02); EST Glomerular Filtration Rate 46 mL/min (>60); Est Glom Filt Rate - Afr Amer 56 mL/min (>60); Glucose 108 mg/dL (74-106); High Density Lipoprotein 73 mg/dL; Potassium 4.6 mmol/L (3.5-5.1); Sodium Level 138 mmol/L (136-145); Triglycerides 150 mg/dL; Very Low Density Lipoprotein 30 mg/dL (5-40)
== END | disposition home or self-care (01) ==
LOC: MTLAB 11:12
PROVIDERS: Family Provider Family Medicine; PCP Family Medicine; Referring Provider Family Medicine; Visit Provider Family Medicine
DX: I10 Essential (primary) hypertension (principal)
CPT/HCPCS: 36415; 80048; 80061; 83036

== ENCOUNTER 2019-02-07 11:26 | Emergency (ER) | payer MEDICARE, OTHER, SELFPAY ==
[2019-02-07 11:27] VITALS: BP 165/69; PULSE 78; RESP 18; TEMP 36.1; O2SAT 94; BMI 47.2
--- NOTE | 2019-02-07 11:39 | ED.VIS.GEN ---
History of Present Illness Chief Complaint: Constipation Informant: Patient Onset: Days - Four or 5 days Timing: Continuous Current Severity: Moderate Maximum Severity: Moderate Narrative: Patient presents with complaint of constipation. She states she is on chronic pain meds secondary to prior surgery. She has had problems with constipation previously. Last bowel movement was for 5 days ago. She is still passing gas. Past Medical History - Allergies and Home Meds Allergies/Adverse Reactions: Allergies ciprofloxacin [From Cipro] Allergy (Verified 02/07/19 11:26) Unknown escitalopram oxalate [From Lexapro] Allergy (Verified 02/07/19 11:26) Unknown heparin Allergy (Verified 02/07/19 11:26) Unknown mupirocin [From Bactroban] Allergy (Verified 02/07/19 11:26) Unknown trazodone Allergy (Verified 02/07/19 11:26) Unknown adhesive tape Adverse Reaction (Verified 02/07/19 11:26) Other Primary Care Physician: Sudheer Lion MD [Primary Care Provider] - Prior records reviewed: Yes Past Medical History: - - Reviewed Surgical History: cholecystectomy, hysterectomy, total knee arthroplasty - June [address] Chua, tonsillectomy Lives: With Family Smoking Status: Never smoker - Family History Maternal Family History: Family History (Last Reviewed 01/08/19 @ 11:29 by Susie Pinon) Mother CAD (coronary artery disease) Hypertension Father CAD (coronary artery disease) Brother Myocardial infarction Hypertension Family History: Reports: No pertinent history Paternal Family History: Family History (Last Reviewed 01/08/19 @ 11:29 by Susie Pinon) Mother CAD (coronary artery disease) Hypertension Father CAD (coronary artery disease) Brother Myocardial infarction Hypertension Family History: Reports: No pertinent history Review of Systems General: Denies: Chills, Fever Eyes: Denies: Visual changes - bilaterally ENT: Denies: Bilateral ear pain Cardiovascular: Denies: Chest pain Respiratory: Denies: Dyspnea, Cough Gastrointestinal: Reports: Abdominal pain, Constipation Genitourinary: Denies: Dysuria Musculoskeletal: Denies: Back pain Skin: Denies: Rash Neurological: Denies: Headache Physical Exam Vital Signs/Narrative: Vital Signs Temp Pulse Resp BP Pulse Ox 02/07/19 11:27 96.9 F L 78 18 165/69 H 94 Inital Vital Signs reviewed: Yes General: Well nourished, Well developed Head: Normocephalic ENT: Moist mucous membranes Neck: Supple Cardiovascular: Regular rate, Regular rhythm Respiratory: No distress, CTA bilaterally Abdomen: Soft, Nontender, Hypoactive bowel sounds Rectal: - - Soft stool noted in rectal vault. Extremities: Nontender Skin: Normal color Neurological: Alert, Oriented x3 Psychological: Normal affect Diagnostic/Tx/Re-eval - Medical Decision Making Patient was given soapsuds enema here with large results. She will be started on MiraLAX at home regularly. ED Disposition - Plan for ED Patient: Disposition: Home or Assisted Living Diagnosis: Constipation Instructions: CONSTIPATION (Adult) Prescriptions: Polyethylene Glycol 3350 [Miralax] 17 gm PO DAILY #30 packet Referrals: Sudheer Lion MD [Primary Care Provider] - 1-2 Weeks
[2019-02-07 14:44] VITALS: BP 148/79; PULSE 78; RESP 16; O2SAT 98
== END 2019-02-07 14:45 | disposition home or self-care (01) ==
PROVIDERS: Emergency Provider Emergency Medicine; Family Provider Family Medicine; PCP Family Medicine
DX: K59.00 Constipation, unspecified (principal)
CPT/HCPCS: 99284

== ENCOUNTER → 2019-03-24 17:50 | Outpatient (CLI) | payer MEDICARE, OTHER, SELFPAY | PROVIDERS: Family Provider Family Medicine; PCP Family Medicine; Referring Provider Urology; Visit Provider Urology | DX: R82.998 Other abnormal findings in urine (principal) | CPT/HCPCS: 87077; 87086; 87088; 87186 ==

== ENCOUNTER 2019-04-09 10:57 | Emergency (ER) | payer MEDICARE, OTHER, SELFPAY ==
[2019-04-09 10:59] VITALS: BP 119/67; PULSE 70; RESP 17; TEMP 36.8; O2SAT 96; BMI 47.5
--- NOTE | 2019-04-09 11:10 | ED.VIS.GEN ---
History of Present Illness Chief Complaint: Fall Detail of Chief Complaint: Injury right ankle Informant: Patient, Significant Other Onset: Today Context: Sudden Onset Timing: Continuous Quality: Pain Location: Ankle Current Severity: Mild Maximum Severity: Moderate Worsened by: Movement or weightbearing Relieved by: Nothing Associated Symptoms: Difficulty bearing weight Narrative: Patient is an elderly woman who presents with injury to right ankle. She states her leg gave out. Her leg gave out because of prior stroke affecting the right side and 3 prior knee surgeries. She states she is unable to put weight. She does have persistent constant paresthesia. She denies head trauma. Denies back pain. She has no other complaints. Prior similar symptoms: No Recent Illness/Hospitalization: No - Past Medical History (1) Atherosclerotic heart disease of [place] coronary artery without angina pectoris Status: Chronic (2) Essential hypertension Status: Chronic (3) Hyperlipidemia Status: Chronic (4) Morbid obesity Status: Chronic (5) Nocturnal hypoxemia Status: Chronic (6) Pulmonary hypertension Status: Chronic (7) Type 2 diabetes mellitus Status: Chronic Comment: Hemoglobin A1c is 7.5% Past Medical History - Allergies and Home Meds Allergies/Adverse Reactions: Allergies ciprofloxacin [From Cipro] Allergy (Verified 04/09/19 10:58) Unknown escitalopram oxalate [From Lexapro] Allergy (Verified 04/09/19 10:58) Unknown heparin Allergy (Verified 04/09/19 10:58) Unknown mupirocin [From Bactroban] Allergy (Verified 04/09/19 10:58) Unknown trazodone Allergy (Verified 04/09/19 10:58) Unknown adhesive tape Adverse Reaction (Verified 04/09/19 10:58) Other Primary Care Physician: Sudheer Lion MD [Primary Care Provider] - Wilber Osborn MD [STAFF PHYSICIAN] - 3-5 Days Prior records reviewed: Yes Surgical History: cholecystectomy, hysterectomy, total knee arthroplasty - June [address] Chua, tonsillectomy Lives: Spouse/ Significant Other Smoking Status: Never smoker - Family History Maternal Family History: Family History (Last Reviewed 01/08/19 @ 11:29 by Susie Pinon) Mother CAD (coronary artery disease) Hypertension Father CAD (coronary artery disease) Brother Myocardial infarction Hypertension Family History: Reports: No pertinent history Paternal Family History: Family History (Last Reviewed 01/08/19 @ 11:29 by Susie Pinon) Mother CAD (coronary artery disease) Hypertension Father CAD (coronary artery disease) Brother Myocardial infarction Hypertension Family History: Reports: No pertinent history Review of Systems General: Denies: Chills, Fever, Sweats Cardiovascular: Denies: Chest pain Respiratory: Denies: Dyspnea Gastrointestinal: Denies: Nausea, Vomiting Musculoskeletal: Reports: Swelling, Extremity Pain. Denies: Myalgias, Arthralgias, Neck pain, Back pain Skin: Denies: Rash, Wounds Neurological: Reports: Parasthesia. Denies: Weakness, Numbness Hematologic: Reports: Easy bruising Physical Exam Vital Signs/Narrative: Vital Signs Temp Pulse Resp BP Pulse Ox 04/09/19 10:59 98.2 F 70 17 119/67 96 Inital Vital Signs reviewed: Yes General: Well nourished, Well developed, Obese, No Acute Distress Eyes: Perrl, EOMI. Negative for: Pale conjunctiva Neck: Supple, Nontender Cardiovascular: Regular rate, Regular rhythm Respiratory: No distress Extremities: Tenderness - Pain to palpation distal 4 cm of the right fibula. There is no pain to palpation base of the fifth metatarsal. There is no laxity with drawer testing.. Negative for: Nontender, No edema Skin: Normal color, No rash, Trauma - Bruises noted right lower extremity Neurological: Alert, Oriented x3. Negative for: Normal Strength, Normal Sensation, Normal Gait Psychological: Depressed Diagnostic/Tx/Re-eval 04/09/19 11:10 Ankle min 3 Views [RAD] Stat View x-ray of the right ankle was interpreted by me. There is a comminuted distal fibula fracture with widening of the mortise. There is no evidence of a posterior or medial malleolus fracture. Since patient is seen Dr. Pavan Osborn in the past will splint and have her follow-up with him. - Medical Decision Making X-ray of the ankle was obtained to evaluate for sprain versus fracture. Procedures - Lower Extremity Splints Lower Extremity Splint: Orthoglass, Plaster, - - Leg posterior and sugar tong splint Splint Fabrication: Fabricated - Patient tolerated procedure. She has an appointment to see Dr. Pavan Osborn tomorrow. Location: Right ED Disposition - Plan for ED Patient: Disposition: Home or Assisted Living Diagnosis: Closed fracture of distal end of fibula Instructions: FRACTURE, Ankle (General) Referrals: Sudheer Lion MD [Primary Care Provider] - Wilber Osborn MD [STAFF PHYSICIAN] - 3-5 Days
--- NOTE | 2019-04-09 11:45 | RAD_ITS ---
STUDY: X-RAY - RIGHT ANKLE REASON FOR EXAM: Female, 63 years old. FALL, PAIN, STS, BRUISING TECHNIQUE: 3 view(s) of the ankle. COMPARISON: None. FINDINGS: An acute oblique fracture through the most distal shaft of the fibula is present with mild lateral offset of the distal fracture fragment. An acute fracture of the medial side of the talar dome is also present with minimal displacement of the small fracture fragments. Abnormal widening of the tibiotalar joint space is also present suggesting some subluxation or distention due to joint fluid. Questioned fracture of the lateral aspect of the distal tibia, which could be further evaluated with dedicated views of the tibia. Marked soft tissue swelling is present around the lower leg and ankle. An intramedullary nuvia is partially seen in the mid aspect of the tibial shaft. The visualized subtalar, talonavicular, calcaneocuboid and tarsal articulations are normal. RAD/Ankle min 3 Views IMPRESSION: 1. Acute oblique displaced fracture of the distal fibula 2. Acute fracture on the medial side of the talar dome. 3. Question fracture of the lateral aspect of the distal tibial plafond. 4. Abnormal widening of the tibiotalar articulation either due to subluxation or joint fluid Electronically Signed: David Bradford MD at 13:07 EST , Service support ,
--- NOTE | 2019-04-09 12:34 | ED.DCSUM_ITS ---
- ER Visit Summary Date of Service: 04/09/19 Chief Complaint: [] History of Present Illness: The patient is a 63 F [] Physical Examination: [] Test Results: [] Emergency Department Course and Treatment: [] Treatment Plan: [] Disposition: [] Impression: [] This note was generated with [employer] dictation software. It may contain incorrect words, spelling, and punctuation that were not noted in review of the chart prior to signing ED Disposition - Plan for ED Patient: Disposition: Home or Assisted Living Diagnosis: Closed fracture of distal end of fibula Instructions: FRACTURE, Ankle (General) Prescriptions: Hydrocodone Bitart/Apap 5-325 [[place] 5MG-325MG] 1 tab PO Q6H PRN PRN 3 Days #10 tab PRN Reason: Pain Prescription Printed Referrals: Sudheer Lion MD [Primary Care Provider] - Wilber Osborn MD [STAFF PHYSICIAN] - 3-5 Days
[2019-04-09 13:04] VITALS: RESP 16
== END 2019-04-09 13:05 | disposition home or self-care (01) ==
PROVIDERS: Emergency Provider Emergency Medicine; Family Provider Family Medicine; PCP Family Medicine
DX: S82.831A Other fracture of upper and lower end of right fibula, initial encounter for closed fracture (principal); X58.XXXA Exposure to other specified factors, initial encounter; Y93.9 Activity, unspecified; Y92.9 Unspecified place or not applicable; I25.10 Atherosclerotic heart disease of native coronary artery without angina pectoris; I10 Essential (primary) hypertension; E78.5 Hyperlipidemia, unspecified; E66.01 Morbid (severe) obesity due to excess calories; I27.20 Pulmonary hypertension, unspecified; E11.9 Type 2 diabetes mellitus without complications; G47.36 Sleep related hypoventilation in conditions classified elsewhere; Z86.73 Personal history of transient ischemic attack (TIA), and cerebral infarction without residual deficits; Z79.02 Long term (current) use of antithrombotics/antiplatelets; Z79.84 Long term (current) use of oral hypoglycemic drugs; Z79.899 Other long term (current) drug therapy
CPT/HCPCS: 29515; 73610; 99282

== ENCOUNTER → 2019-04-16 17:30 | Outpatient (CLI) | payer MEDICARE, OTHER, SELFPAY ==
[2019-04-09 10:59] VITALS: BMI 47.5
--- NOTE | 2019-04-16 17:34 | CT_ITS ---
STUDY: RIGHT ANKLE CT SCAN REASON FOR EXAM: Female, 63 years old. RT ANKLE FX 1 WEEK AGO. RADIATION DOSAGE (If Supplied By Facility): CTDIvol = ( 15.35 ) mGy, DLP = ( 537.98 ) mGycm. Individualized dose optimization techniques were used for this CT.? TECHNIQUE: Axial multidetector CT scan of the right lower extremity/foot. Coronal and sagittal reformatted images. COMPARISON: X-ray dated 04/09/2019. FINDINGS: Acute comminuted displaced fracture of the distal fibula (coronal image 56 series 602). Fracture fragment separation measures approximately 8 mm. Acute comminuted displaced fracture of the anterior lateral aspect of the distal tibia (coronal image 51 series 602). Fracture fragment displacement measures approximately 1.3 cm with rotational component. Bony fragments interposed between the distal tibia and talus (coronal image 55 series 602 and sagittal image 32 series 601). Medial talar dome osteochondral lesion with bone plate flattening (sagittal image 32 series 601 and coronal image 53 series 602). Region of osteochondral lesion measures approximately 2 cm x 1 cm. Medial ankle malleolus clear space widening (coronal image 51 series 602). Normal subtalar alignment. Normal talonavicular alignment. Normal calcaneocuboid alignment. Normal navicular cuneiform alignment. Normal tarsometatarsal alignment. Normal first through fifth digits and metatarsals. Diffuse soft tissue swelling with ankle joint effusion. CT/Extremity Lower without Contra IMPRESSION: Acute distal fibula and distal tibial comminuted displaced fractures Medial talar dome osteochondral lesion with bone plate flattening Medial ankle mortise clear space widening Soft tissue swelling with joint effusion Electronically Signed: Toro Cordero DO at 8:38 EST Tel , Service support ,
== END ==
PROVIDERS: Family Provider Family Medicine; PCP Family Medicine; Referring Provider Podiatrist Foot & Ankle Surgery; Visit Provider Podiatrist Foot & Ankle Surgery
DX: S82.841A Displaced bimalleolar fracture of right lower leg, initial encounter for closed fracture (principal); S92.144A Nondisplaced dome fracture of right talus, initial encounter for closed fracture
CPT/HCPCS: 73700

== ENCOUNTER → 2019-04-18 15:27 | Outpatient (CLI) | payer MEDICARE, OTHER, SELFPAY ==
[2019-04-09 10:59] VITALS: BMI 47.5
--- NOTE | 2019-04-18 15:57 | EKG12_ITS ---
Test Reason : PREOP Blood Pressure : / mmHG Vent. Rate : 066 BPM Atrial Rate : 066 BPM P-R Int : 140 ms QRS Dur : 078 ms QT Int : 404 ms P-R-T Axes : 065 062 069 degrees QTc Int : 423 ms Sinus rhythm with Premature supraventricular complexes Early repolarization Otherwise normal ECG Confirmed by ELIZABETH BOB, LUIS ([id number]), market editor ASHLEY ROGERS ([id number]) on 04/21/2019 10:28:57 AM Referred By: Manny Sanchez Confirmed By:LUIS JOHNSON MD
--- NOTE | 2019-04-18 16:15 | RAD_ITS ---
STUDY: X-RAY CHEST REASON FOR EXAM: Female, 63 years old. pre op for surgery, no chest complaints TECHNIQUE: PA and lateral views of the chest. COMPARISON: None. FINDINGS: The lungs are clear and expanded. There is no demonstrated pleural abnormality. There is borderline cardiomegaly. Normal mediastinum and aayush. Normal visualized pulmonary arteries. Normal visualized aortic arch and descending thoracic aorta. Normal visualized thoracic spine. Normal visualized ribs, clavicles, and shoulders. There is no demonstrated abnormality of the visualized soft tissue structures of the upper abdomen. RAD/Chest PA and Lateral IMPRESSION: No acute cardiopulmonary disease. Electronically Signed: Rodrigo Caruso DO at 18:19 EST Tel , Service support ,
[2019-04-18 16:22] LABS: Absolute Lymphocyte Count 1.66 X10^3/uL (0.83-4.51); Absolute Neutrophil Count 5.7 X10^3/uL (2.0-7.7); Basophil# 0.06 X10^3/uL; Basophil% 0.7 % (0-1); Eosinophil# 0.16 X10^3/uL; Eosinophils% 1.9 % (0-5); Hematocrit 30.9 % (37-47); Hemoglobin 9.3 g/dL (12.0-15.0); Lymphocyte # 1.66 X10^3/ul (4.0); Lymphocyte % 19.8 % (19-41); Mean Corp Hgb Conc 30.1 g/dL (32-36); Mean Corpuscular Hgb 24.9 pg (27.0-32.0); Mean Corpuscular Volume 82.6 fL (81-99); Monocyte# 0.72 X10^3/uL; Monocyte% 8.6 % (0-10); NRBC Flagged by Analyzer 0 % (0-5); Neutrophil # 5.74 X10^3/uL (2.7-7.7); Neutrophil % 68.5 % (47-70); Platelet Count 308 K/mm3 (150-450); RBC Distribution Width CV 15.6 % (11.6-14.6); RBC Distribution Width SD 46.8 fl (35.1-43.9); Red Blood Count 3.74 M/mm3 (4.2-5.4); White Blood Count 8.4 K/mm3 (4.4-11.0)
[2019-04-18 16:37] LABS: Hemoglobin A1c 6.9 % (4.2-6.3)
[2019-04-18 16:51] LABS: International Normalized Ratio 1.1; Prothrombin Time (Protime)PT. 14.3 SECONDS (11.7-14.9)
[2019-04-18 16:52] LABS: Partial Thromboplast Time 25.4 Seconds (24.1-36.2)
[2019-04-18 16:53] LABS: Anion Gap 5 (5-15); BUN 15 mg/dL (7-18); BUN/Creat Ratio 15.6 RATIO (10-20); Calcium,Total 9.5 mg/dL (8.5-10.1); Chloride 106 mmol/L (98-107); Creatinine, Serum 0.96 mg/dL (0.55-1.02); EST Glomerular Filtration Rate 62 mL/min (>60); Est Glom Filt Rate - Afr Amer 75 mL/min (>60); Glucose 143 mg/dL (74-106); Potassium 4.1 mmol/L (3.5-5.1); Sodium Level 138 mmol/L (136-145)
== END ==
PROVIDERS: Family Provider Family Medicine; PCP Family Medicine; Referring Provider Podiatrist Foot & Ankle Surgery; Visit Provider Podiatrist Foot & Ankle Surgery
DX: Z01.818 Encounter for other preprocedural examination (principal); E11.9 Type 2 diabetes mellitus without complications
CPT/HCPCS: 36415; 71046; 80048; 83036; 85025; 85610; 85730; 93005

== ENCOUNTER 2019-04-24 10:45 | Inpatient (IN) | payer MEDICARE, OTHER, SELFPAY ==
[2019-04-24] VITALS (21 sets, daily range): BP systolic 99–199; BP diastolic 40–107; PULSE 50–88; RESP 12–22; TEMP 36–36.9; O2SAT 83–98; BMI 48.3; BMI 49.1
[2019-04-24 11:35] LABS: Bedside Glucose 109 mg/dL (70-110)
--- NOTE | 2019-04-24 12:20 | OST_PTH ---
PATIENT: MACKENZIE AKHTAR LOC: [facility] U#:[id number] AGE/SX: 63/F ROOM: UT319 RE04/24/[address]: Dr. Manny Sanchez DPM : 1955 BED: 1 DIS: 04/28/2019 SPEC #: [id number] RECD: 04/25/19 09:39 STATUS: ELSA REQ #: [id number] PRETTY: 04/24/19 12:[address]: Manny Sanchez DEPT: SURGICAL PATHOLOGY RECD BY: Balwinder Jain ENTERED: 04/25/19 10:36 SP TYPE: OSTEOCHON OT DR: MD Dr. Sudheer Maria MD Tissues: Bony tissue, NOS Procedures: Decalcification bone/plaque Surgery Specimen Level III HEADER OPERATION: Ankle join arthroscopy, repair of osteochondral defect, ORIF PRE-OP DIAGNOSIS: Displaced bimalleolar fracture right lower leg, nondisplaced dome fracture of right talus TISSUE SUBMITTED: Osteochondral defect of talus MICROSCOPIC DIAGNOSIS Osteochondral defect of talus: A piece of bone and cartilage with reactive changes. MARCOS:marti 04/30/19 MICROSCOPIC DESCRIPTION Slides are reviewed. GROSS DESCRIPTION Received in fixative is one container labeled with the patient's name and designated osteochondral defect of talus. The specimen consists of a discoid fragment of light thomas bone measuring 1.6 x 1 x 0.2 cm. The specimen is submitted entirely in one cassette after decalcification. / AM:marti 04/25/19 TC:5 CPT: 73723, 69266
[2019-04-24] MEDS: Lactated Ringers 1,000 ML 100 ML IV ×2 (14:00→17:00)
--- NOTE | 2019-04-24 16:00 | RAD_ITS ---
STUDY: X-RAY - RIGHT ANKLE REASON FOR EXAM: Female, 63 years old. ORIF RIGHT ANKLE TECHNIQUE: 8 C-arm view(s) of the ankle. 219 seconds fluoroscopy time. COMPARISON: None. FINDINGS: The sequence of images show placement of compression plate and screws fixating distal fibular fracture into anatomic alignment and position. Correlate with procedure note. Electronically Signed: Olvin Sloiman MD at 21:43 EST , Service support , RAD/Ankle min 3 Views
--- NOTE | 2019-04-24 18:07 | SUR.PREOP ---
FOR APPROXIMATELY AN HOUR, 4 PEOPLE ATTEMPTED TO INSERT A PERIPHERAL IV. DR. MORFIN USED AN ULTRASOUND MACHINE TO PLACE THE IV IN THE PATIENT'S RIGHT ANTECUBITAL SPACE.
--- NOTE | 2019-04-24 18:10 | PCM.HP.STD ---
Problem List (1) Dislocation of right ankle joint Status: Acute Qualifiers: Encounter type: subsequent encounter Qualified Code(s): S93.04XD - Dislocation of right ankle joint, subsequent encounter (2) Closed right ankle fracture Status: Acute Qualifiers: Encounter type: subsequent encounter Fracture healing: with delayed healing Qualified Code(s): S82.891G - Other fracture of right lower leg, subsequent encounter for closed fracture with delayed healing (3) Other acute postprocedural pain Status: Acute History of Present Illness Date of Admission: 04/24/19 Chief Complaint: Pain of right ankle deformity right ankle after surgical intervention The patient is a 63 year old F with a significant past medical history who suffered a slip and fall in her home on April 09, 2019. Patient noticed immediate deformity of her right ankle. Patient presented to the emergency department where she was diagnosed with a right ankle dislocation and fracture. Patient was then splinted and sent for follow-up. Patient then subsequently saw me in the office. Surgery was delayed due to excessive swelling in her right ankle. Surgical intervention was performed today, April 24, 2019. Patient is experiencing significant pain post procedurally. Was then determined that patient would be admitted for pain control. More, consultation for physical therapy would be placed to assist in activities of daily living. Hospitalist would be consulted for assistance in medical management. [] Past Medical History Past Medical History (Chronic Problems): Chronic Problems (Last Reviewed 04/24/19 @ 17:56 by Manny Sanchez DPM) Type 2 diabetes mellitus (Chronic) Hemoglobin A1c is 7.5% Presence of stent in coronary artery (Chronic ~02/27/12) 09/24/2009 bare-metal stent to RCA at [facility]; PTCA/LADARIUS to mid LAD 02/27/12 Essential hypertension (Chronic) Atherosclerotic heart disease of [place] coronary artery without angina pectoris (Chronic) Nocturnal hypoxemia (Chronic) Pulmonary hypertension (Chronic) Insomnia (Chronic) Morbid obesity (Chronic) Hyperlipidemia (Chronic) Medical History: Medical History (Last Reviewed 04/24/19 @ 17:56 by Manny Sanchez DPM) Presence of stent in coronary artery (Chronic) Onset Date: ~02/27/12 Z95.5 09/24/2009 bare-metal stent to RCA at [facility]; PTCA/LADARIUS to mid LAD 02/27/12 Essential hypertension (Chronic) I10 Atherosclerotic heart disease of [place] coronary artery without angina pectoris (Chronic) I25.10 Nocturnal hypoxemia (Chronic) G47.34 Pulmonary hypertension (Chronic) I27.20 Insomnia (Chronic) G47.00 Morbid obesity (Chronic) E66.01 Hyperlipidemia (Chronic) E78.5 Anxiety F41.9 CVA (cerebral vascular accident) I63.9 2005 right sided Depression F32.9 Heart disease I51.9 Right sided cerebral infarction I63.9 Suicide attempt by drug ingestion T50.902A Allergies ciprofloxacin [From Cipro] Allergy (Verified 04/24/19 11:17) Unknown escitalopram oxalate [From Lexapro] Allergy (Verified 04/24/19 11:17) Unknown heparin Allergy (Verified 04/24/19 11:17) Unknown mupirocin [From Bactroban] Allergy (Verified 04/24/19 11:17) Unknown trazodone Allergy (Verified 04/24/19 11:17) Unknown adhesive tape Adverse Reaction (Verified 04/24/19 11:17) Other Home Medications: Ambulatory Orders Medication Instructions Recorded Clopidogrel Bisulfate [Plavix] 75 mg PO QHS 08/25/15 Atorvastatin Calcium [Lipitor] 40 mg PO QHS 01/27/16 ALPRAZolam [Xanax] 1 mg PO BID 07/05/17 Duloxetine HCl 60 mg PO DAILY 07/05/17 ranitidine HCl 150 mg tablet 150 mg PO QDAY 10/31/17 metoprolol tartrate 25 mg tablet 25 mg PO BID #180 tab 09/16/18 Tizanidine HCl [Zanaflex] 4 mg PO BID 10/15/18 Amlodipine Besylate [Norvasc] 5 mg PO QDAY 10/31/18 Folic Acid 1 mg PO DAILY 12/13/18 Metformin HCl 500 mg PO BIDCM 12/13/18 lisinopril 20 mg tablet 20 mg PO BID #180 tab 12/24/18 oxycodone 5 mg tablet 5 mg PO TID PRN tab 01/08/19 Ferrous Sulfate [Iron] 325 mg PO BID 04/23/19 Polyethylene Glycol 3350 [Miralax] 17 gm PO DAILY PRN 04/23/19 Trospium Chloride [Sanctura] 20 mg PO BID 04/23/19 Surgical History: Surgical History (Last Reviewed 04/24/19 @ 17:56 by Manny Sanchez DPM) Presence of coronary angioplasty implant and graft Onset Date: ~02/27/12 Z95.5 09/24/2009 bare-metal stent to RCA at [facility]; PTCA/LADARIUS to mid LAD 02/27/12 H/O arthroscopy of right knee Z98.890 History of cholecystectomy Z90.49 History of hysterectomy Z90.710 History of knee replacement Z96.659 History of tonsillectomy Z90.89 Status post total right knee replacement Onset Date: ~12/25/18 Z96.651 Surgical History: cholecystectomy, hysterectomy, total knee arthroplasty - June [address] 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, Depression [employer] History: dysfunctional uterine bld Smoking Status: Never smoker Tobacco Use: Non-smoker Alcohol: None Drugs: None - *Family History Maternal Family History: Family History (Last Reviewed 04/24/19 @ 17:56 by Manny Sanchez DPM) Mother CAD (coronary artery disease) Hypertension Father CAD (coronary artery disease) Brother Myocardial infarction Hypertension History Items: No pertinent history Paternal Family History: Family History (Last Reviewed 04/24/19 @ 17:56 by Manny Sanchez DPM) Mother CAD (coronary artery disease) Hypertension Father CAD (coronary artery disease) Brother Myocardial infarction Hypertension History Items: No pertinent history Review of Systems Constitutional: Denies: Anorexia, Chills, Fever, Night Sweats Eyes: Denies: Blurred vision, Cataracts HEENT: Denies: Difficulty Hearing, Difficulty Swallowing, Dysphasia, Ear Pain Cardiovascular: Reports: Edema - Positive bilateral lower extremity edema. Denies: Chest Pain, Claudication, Chest Pressure, Chest Tightness Respiratory: Reports: Shortness of breath upon exertion. Denies: Cough, Shortness of Breath, Shortness of breath at rest Gastrointestinal: Denies: Abdominal Pain, Constipation, Diarrhea, Dyspepsia Genitourinary: Denies: Dysuria, Incontinence Gynecological: Denies: Breast symptoms Musculoskeletal: Reports: Leg Pain - Right ankle and knee pain Neurological: Reports: Balance problems, Incoordination Psychiatric: Reports: Anxiety, Depression VTE Information - Inpt Only VTE Present on Admission: No VTE Pharm Prophylaxis ordered?: Yes Patient Problems: Active and Suspected Problems (Last Reviewed 04/24/19 @ 17:56 by Manny Sanchez DPM) Dislocation of right ankle joint (Acute) Closed right ankle fracture (Acute) Other acute postprocedural pain (Acute) Subjective: Patient seen after surgical intervention. Patient experienced significant increase in postoperative pain that is not well controlled at this time. Patient missed to pain only in the ankle. No other areas of pain noted. Patient denies fever, chills, nausea, vomiting, shortness of breath, chest pain. Patient denies calf pain. Objective: Right lower extremity: Dressing is clean, dry, intact the right lower extremity with no evidence of strikethrough Neurovascular status is intact to the right lower extremity. Sensation intact to light touch. Capillary fill time is less than 3 seconds to all digits of the right foot. - Physical Exam Vitals/I&O's: Vital Signs Temp Pulse Resp BP Pulse Ox 96.8 F L 50 L 18 99/40 L 94 04/24/19 11:20 04/24/19 11:20 04/24/19 11:20 04/24/19 11:20 04/24/19 11:20 Oxygen Delivery Method Room Air Weight: 117.934 kg Body Mass Index (BMI) 48.3 Finger Stick Blood Glucose 128 Intake and Output for Last 24 Hours 04/22/19 04/23/19 04/24/19 23:59 23:59 23:59 Intake Total 115 / 115 Output Total 550 / 550 Balance -435 / -435 General: Alert, Oriented x3, Cooperative HEENT: Atraumatic, PERRLA Oral: Moist Mucosa Neck: Supple, No JVD Lungs: Clear to auscultation, Normal air movement, No rhonchi, No wheeze, No rales Cardiovascular: Regular rate, Regular Rhythm, Normal S1, Normal S2 Abdomen: Bowel Sounds Present, Soft, Non Tender, Non-Distended, Obese Extremities: Capillary Refill Less than 3 Seconds, No Calf Tenderness, Edema Skin: No rashes, No breakdown Musculoskeletal: Tenderness - Upon palpation of right ankle Neurological: Sensory exam intact to light touch and pain Psych/Mental Status: Alert and oriented to time, place, person, mood and affect Laboratory Results 04/24/19 11:23: POC Glucose 109 Current Medications Amlodipine Besylate (Norvasc) 5 mg PO QDAY [facility] Atorvastatin Calcium (Lipitor) 40 mg PO QHS [facility] Clopidogrel Bisulfate (Plavix) 75 mg PO QHS [facility] Duloxetine HCl (Cymbalta) 60 mg PO DAILY [facility] Ferrous Sulfate (Ferrous Sulfate) 325 mg PO BID [facility] Folic Acid (Folic Acid) 1 mg PO DAILY [facility] Cefazolin Sodium 2 gm/ Sodium (Chloride) 110 mls @ 150 mls/hr IV Q8 [facility] Lactated Ringer's () 1,000 mls @ 100 mls/hr IV .Q10H [facility] Last Admin: 04/24/19 14:00 Dose: 100 mls/hr Documented by: Lisinopril (Zestril) 20 mg PO BID [facility] Metoprolol Tartrate (Lopressor (Beta Ana)) 25 mg PO BID [facility] Non-Formulary Medication (Alprazolam) 1 mg PO BID [facility] Non-Formulary Medication (Ranitidine Hcl [Acid Control]) 150 mg PO QDAY [facility] Non-Formulary Medication (Tizanidine Hcl [Zanaflex]) 4 mg PO BID [facility] Oxycodone HCl (Oxyir) 5 mg PO TID PRN PRN Reason: pain Polyethylene Glycol (Miralax) 17 gm PO DAILY PRN PRN Reason: Constipation Trospium (Sanctura) 20 mg PO BID [facility] Assessment/Plan All Active Problems (Last Reviewed 04/24/19 @ 17:56 by Manny Sanchez DPM) Dislocation of right ankle joint (Acute) Closed right ankle fracture (Acute) Other acute postprocedural pain (Acute) Plan: This is a 63-year-old female with a significant past medical history status post right ankle open reduction with internal fixation Patient chart reviewed and patient was evaluated Patient will be admitted for further postoperative care at this time. Consultation placed to hospitalist for assistance in medical management. I appreciate assistance in management of this patient Physical therapy and Occupational Therapy consults placed for assistance with activities of daily living. At this time, patient has limited mobility of her right lower extremity due to a seizure and right knee replacements. Due to this, she does not tolerate weightbearing to the right lower extremity well. Patient may benefit from subacute rehab placement pending her clinical course, Consultation placed to pillowcase maker for further evaluation Patient started on DVT prophylaxis. Plavix was restarted per patient's protocol Pain medication started to assist the patient and her pain Patient to keep the dressing clean, dry, intact to the right lower extremity. Patient is to remain nonweightbearing to the right lower extremity with assistive devices Antibiotics were continued to assist in infection control. Patient restarted on all home medications at this time. Thank you for all assistance in managing this patient. Code Visit Inpatient E&M: [id number] Init Hosp L2
--- NOTE | 2019-04-24 18:23 | OP.PCM_ITS ---
Problem List (1) Dislocation of right ankle joint Status: Acute Qualifiers: Encounter type: subsequent encounter Qualified Code(s): S93.04XD - Dislocation of right ankle joint, subsequent encounter (2) Closed right ankle fracture Status: Acute Qualifiers: Encounter type: subsequent encounter Fracture healing: with delayed healing Qualified Code(s): S82.891G - Other fracture of right lower leg, subsequent encounter for closed fracture with delayed healing (3) Other acute postprocedural pain Status: Acute Report of Operation Date of Procedure: 04/24/19 Pre-Operative Diagnosis: 1. Right ankle dislocation. 2. Right talus osteochon dral defect. 3. Right ankle fibular fracture. 4. Right deltoid ligament rupture Post-Operative Diagnosis: Same as preoperative Surgery/Procedure Performed:: 1. Right ankle joint arthroscopy with repair of osteochondral defect. 2. Open reduction with internal fixation of right lateral malleolus fracture Description of Surgical Findings:: Consistent with diagnosis. Reduction of deformity achieved and held with internal fixation. linter saw sharpener: Malini Goldstein Type of Anesthesia:: General/Regional - A popliteal and saphenous block to the right lower extremity Anesthesiologist: Toro Wright Special Medications: 3 g of Ancef given preoperatively Specimen's removed: None Drains: None Estimated Blood Loss (mL): 50 Description of Procedure: Pathology: None Anesthesia: General with a popliteal saphenous block to the right lower extremity Hemostasis: Pneumatic thigh tourniquet placed to level of the right thigh at 300 mmHg for 120 minutes Estimated blood loss: 50 mL Materials: 1. Fabiola 3 hole distal lateral fibula plate 2. Fabiola 3.5 x 10 mm locking screw 3. Fabiola 3.5 x 12 mm locking screw x4 4. [place] 3.5 x 14 mm locking screw 5. [place] 3.5 x 12 mm nonlocking screw x2 6. [place] 3.5 x 12 mm nonlocking screw 7. Size 0 Vicryl 8. Size 2-0 Vicryl 9. Size 3-0 vicryl 10. size 3-0 nylon Injectables: None Complications: Difficult to reduce fracture due to patient's body habitus Condition: Stable Indications: Patient 63-year-old female with a significant past medical history who suffered a slip and fall on April 09, 2019. Patient presented to the emergency department at that time. Patient was diagnosed with a right ankle fracture. Patient was then splinted and instructed to may remain nonweightbearing patient. Patient then saw me in the office for further care. After reviewing the x-rays and discussing with the patient, patient states that she had multiple knee replacements of her right lower extremity and a stroke affecting her right side. Patient states that she is minimally ambulating on her right side. Patient states that she would 1 day like to ambulate on her right side as much as possible. On top of this, discussing with her about her activities of daily living, it was agreed upon the surgical intervention would be performed to ice cream freezer helper in the realignment and stability of the ankle. Due to the significant swelling that was present in her right ankle, we waited approximately 2 weeks before surgical intervention will be performed. Operative report: Before the patient was brought to the operating room, the risks, benefits, possible outcomes, possible complications of the procedure discussed with the patient. All the patient questions were answered to her satisfaction and all of her concerns were addressed. No guarantees were made as to the outcome of the procedure. Patient understood all aspects of the procedure, and consent was then signed with the patient. Before the patient was brought to the operating room, the anesthesiologist administered a popliteal saphenous block to the right lower extremity. Patient was then brought to the operating room and placed on the operating table in supine position. After timeout, general anesthesia was obtained by the anesthesiologist and the anesthesiologist to maintain the airway. Next, well-padded pneumatic thigh tourniquet was placed to the level of the right thigh. At this time, adequate padding was placed in areas of pressure points. Next, the right leg was placed in the leg cabrera for the arthroscopic debridement. The right foot, ankle, leg were then scrubbed, prepped, draped in the usual sterile manner. Elevation of the right lower extremity was followed by exsanguination via Es march and inflation with pneumatic thigh tourniquet to 300 mmHg. Attention was then directed to the anterior aspect of the right ankle. At this time, the medial and lateral malleoli were identified and marked on the patient. Next, the ankle joint line was identified and marked on the patient as well. At this time, 30 mL normal sterile saline was injected the ankle joint just medial to the tibialis anterior tendon. Immediate insufflation of the ankle joint was noted. Positive dorsiflexion and eversion of the foot was noted. Next, a #15 blade was used to perform a stab incision at the level just medial to the tibialis anterior tendon at the level of the ankle joint line. This time blunt dissection extending down to the level of the ankle joint capsule. Next, the trocar inserted and the cannula was placed into the anterior medial surgical site. The ankle joint was then penetrated. Immediate backflow was then noted. The trocar was then removed, the arthroscope was placed into the surgical site. At this time, the osteochondral defect that was noted on preoperative imaging was identified on the medial dorsal aspect of the talar dome. This was significant in nature. Also, chronic synovitis was noted throughout the ankle joint. Next, transillumination was performed to determine the level of the anterior lateral portal. Once identified, stab incision was made at the ant erior lateral portal. Blunt dissection was continued down deep to the level of the ankle joint capsule, which was then penetrated via a hemostat. Next, the hemostat was placed into the surgical site near the anterior lateral portal. Triangulation was then performed. At this time, the osteochondral defect was tested. This was loose and unstable nature. This was then removed in its entirety. This measured approximately 1.3 cm in length. Visual inspection was then performed of the ankle joint and no other osteochondral defects were present. Next, the hemostat was removed from the anterior lateral portal and the arthroscopic bur was placed into this portal. Triangulation was then performed. The edges of the osteochondral defect were then burred. The bur was then switched for the arthroscopic shaver. Chronic synovitic tissue that was contained within the surgical site was debrided using the shaver. The shaver was then removed and the micro-pick was placed into the anterior lateral portal. At this time, attention was then directed to the osteochondral defect in question. Next, the pick was used to perform subchondral picking to allow fibrocartilage to grow in the area. Adequate deepening into the osteochondral defect was performed. Once adequate microfracture was performed of this osteochondral defect, the micro-pick was then removed. At this time, visual inspection was then performed to the anterior lateral tibia. No visual inspection was able to be had for the fracture that was found on CT scan. At this time, suction was performed to remove as much fluid from the right ankle joint as possible. The arthroscope was then removed to the anterior medial portal. The foot, ankle, leg were then removed from the leg cabrera. Attention was then turned to the lateral aspect of the right ankle. Radiographic evaluation was then performed to determine the level of the distal fibula. This was then marked on the patient. Further determination was performed to determine the level of the fracture. This was marked on the patient as well . At this time, #15 blade was used to perform a lateral longitudinal incision starting on the lateral aspect of the distal one third of the fibular shaft extending distally to the distal tip of the lateral malleolus. This incision was deepened utilizing sharp and blunt dissection. Care was taken retract all vital neural and vascular structures. All bleeders were cauterized and ligated as necessary. At this time, a linear periosteal incision was made in line with the original skin incision. The periosteal capsular structures were then reflected anteriorly and posteriorly, thus exposing the fibula and the fracture at the operative site. At this time, multiple attempts were made to reduce the fracture. The fracture was comminuted in nature. Furthermore, the fracture was difficult to reduce due to her body habitus. Once adequate reduction was performed, multiple attempts were made to throw interfragmentary screw across the fracture fragment. Due to the comminution, it was extremely difficult and the interfragmentary screws would not hold. At this time, a K wire for fixation was placed over the frac ture fragments to hold the fracture in the correct the reduced position. At this time, the [place] 3 hole plate was placed on the lateral aspect of the fibula. Radiograph evaluation was performed to determine the best positioning. Once the best positioning was had, this was held to the plate with a mixture of nonlocking and locking screws. Of this note demonstration of the screws was adequate compression of the plate to the bone. Furthermore, no shifting in the fragments occurred during insertion of the screws. Once all screws were fully inserted, radiographic evaluation was then performed. One hole in the plate was left open because this was the level of the fracture. The fracture was noted noted to be affixed to the lateral aspect the fibula and was noted to hold the fracture fragments in the correct the reduced position. It was then determined at this time that the K wire that was used for temporary fixation would be left in place. This was then clipped at a level just flush to the fibula. Any remaining jagged edges were smoothed down utilizing a rasp. No jagged edges remained. At this time, the hook test was performed to test the syndesmosis. The syndesmosis was deemed intact and no widening of the tibiofibular joint was noted. At this time, inspection was performed to determine the level of the anterior lateral tibial fracture. Upon visual inspection, it was determined that this fracture was reduced and was minimal in nature. Fixation would not be able to hold this fracture. It was thus determined that this fracture would be left alone. This fracture was nonvital to the ankle joint and nonvital to the syndesmosis at this time. The surgical site in the lateral aspect of the fibula was irrigated with copious muscle normal sterile saline. At this time, the pneumatic thigh tourniquet was then released and a prompt hyperemic response noted to the entirety of the right lower extremity. The periosteal and capsular structures were reapproximated c oapted utilizing size 0 Vicryl. The subcutaneous tissue was reapproximated and coapted utilizing size 2-0 Vicryl. The skin was reapproximated coapted utilizing 3-0 nylon in a horizontal mattress and simple interrupted fashion. The subcutaneous tissue of the surgical sites on the ankle joint portals were reapproximated coapted utilizing size 3-0 Vicryl. The skin was reapproximated coapted utilizing 3-0 nylon in a simple interrupted fashion. Each surgical site was then dressed with Betadine soaked gauze, and a dry sterile dressing setting of 4 x 4 gauze wrapped with Kerlix. At this time the foot and ankle were then wrapped with an Andrzej bandage. Next, a stockinette was placed over the right lower extremity. Cast padding was wrapped in the metatarsal heads extending proximally to the level just distal to the tibial tuberosity. A posterior splint was fashioned to the right lower extremity and was adhered to the right lower extremity utilizing Andrzej bandages. Care was taken make sure that the foot and ankle held in a slightly inverted position to aid in holding the length of the fibula and to aid in reduction of the deltoid ligament. The patient tolerated the patient well. Patient was experiencing low levels of oxygen saturation even with attempts at oxygenation. It was then turned at this time that the patient will be admitted for respiratory distress along with acute postprocedural pain. The ophthalmic surgical assistant, the nurse practitioner, was utilized throughout the entire procedure. She helped with patient positioning, holding of limb, holding of retractors. She helped with exposure throughout. She helped with wound closure, bandage application, and cast application. Without the ophthalmic surgical assistant, surgical time would have been increased. Surgical outcome could have been less optimal. - Complications Patient is obese and it was difficult to get anatomic reduction of the fractures - Admit VTE Documentation VTE Present on Admission: No VTE Pharm Prophylaxis ordered?: Yes
[2019-04-24 18:31] LABS: Bedside Glucose 144 mg/dL (70-110)
--- NOTE | 2019-04-24 18:50 | SUR.PHASEI ---
Addendum entered by Christie More 04/24/19 19:03: Dr Sanchez was speaking with Dr Morales on the phone. Original Note: CPS therapist here and pt placed on biPap per Dr Vilchis's orders. Dr Sanchez at bedside speaking with hospitalsteven Morales. States Dr Morales to come to PACU to see pt for admission.
--- NOTE | 2019-04-24 19:00 | PCM.PN.HOSP ---
Patient Problems: Active and Suspected Problems (Last Reviewed 04/24/19 @ 17:56 by Manny Sanchez DPM) Dislocation of right ankle joint (Acute) Closed right ankle fracture (Acute) Other acute postprocedural pain (Acute) Subjective: Patient is a 63 y/o with a PMH as listed who was admitted to the podiatry service today for [facility] ankle surgery. She had a right ankle joint arthroscopy with repair of also chondral defect and open reduction and internal fixation of right lateral malleolar fracture. After surgery, patient was noted to be desaturating, and was 81% on 6 L of oxygen. She required up to 15 L of oxygen to come up to 88%. She was therefore started on BiPAP and hospitalist service was consulted for medical management of postop hypoxia. Patient was evaluated in the PACU whilst on BiPAP. Patient denies ever being told that she has sleep apnea though according to the nurse, her told nurses that patient also had hypoxia during her last surgery last year and required BiPAP and had to be put in the ICU. She was subsequently put on CPAP but has not been compliant with it. Patient denies following up with any flight deck officer. She denied any chest pain or shortness of breath, palpitations, dizziness, abdominal pain, diarrhea vomiting. She did complain of pain in her right lower extremity at the surgical sites. Review of symptoms otherwise negative. She has been admitted to be managed for postop hypoxia likely due to sleep apnea and OSH. Vitals/I&O's: Vital Signs Temp Pulse Resp BP Pulse Ox 98.4 F 76 22 H 186/107 H 91 04/24/19 18:13 04/24/19 18:51 04/24/19 18:51 04/24/19 18:45 04/24/19 18:51 Oxygen Flow Rate (L/min) 15 Oxygen Delivery Method Bi-pap Weight: 260 lb Body Mass Index (BMI) 48.3 Finger Stick Blood Glucose 128 Intake and Output for Last 24 Hours 04/22/19 04/23/19 04/24/19 23:59 23:59 23:59 Intake Total 1115 / 1115 Output Total 550 / 550 Balance 565 / 565 General: Alert, Cooperative, No apparent distress, Lethargic, - - on BIPAP HEENT: Atraumatic, PERRLA, EOMI Oral: Moist Mucosa Neck: Supple, No JVD, Negative Carotid Bruits Lungs: - - decreased breath sounds bibasally. No wheezes or crackles. On BIPAP Cardiovascular: Regular rate, Regular Rhythm, Normal S1, Normal S2, No murmurs Abdomen: Bowel Sounds Present, Soft, Non Tender, Non-Distended, No Hepato-splenomegaly, Obese Extremities: No edema, Capillary Refill Less than 3 Seconds Skin: No rashes, No breakdown Musculoskeletal: - - RLE in bandage Lymphatic: No Cervical, Supraclavicular, or Inguinal Adenopathy Neurological: Cranial nerves II-XII grossly intact, Neuro grossly intact, Motor Exam 5/5 strength throughout Psych/Mental Status: Normal Affect, Appropriate, Alert and oriented to time, place, person, mood and affect Laboratory Results 04/24/19 11:23: POC Glucose 109 04/24/19 18:23: POC Glucose 144 H Current Medications Alprazolam (Xanax) 1 mg PO BID [facility] Amlodipine Besylate (Norvasc) 5 mg PO DAILY [facility] Atorvastatin Calcium (Lipitor) 40 mg PO QHS [facility] Clopidogrel Bisulfate (Plavix) 75 mg PO QHS [facility] Duloxetine HCl (Cymbalta) 60 mg PO DAILY [facility] Famotidine (Pepcid) 20 mg PO DAILY [facility] Ferrous Sulfate (Ferrous Sulfate) 325 mg PO BIDCM [facility]) [facility] Cefazolin Sodium 2 gm/ Sodium (Chloride) 110 mls @ 150 mls/hr IV Q8 [facility] Lactated Ringer's () 1,000 mls @ 100 mls/hr IV .Q10H [facility] Last Admin: 04/24/19 17:00 Dose: 100 mls/hr Documented by: Lisinopril (Zestril) 20 mg PO BID [facility] Metformin HCl (Glucophage) 500 mg PO BIDCM [facility] Metoprolol Tartrate (Lopressor (Beta Ana)) 25 mg PO BID [facility] Non-Formulary Medication (Tizanidine Hcl [Zanaflex]) 4 mg PO BID [facility] Oxycodone HCl (Oxyir) 5 mg PO TID PRN PRN Reason: pain Polyethylene Glycol (Miralax) 17 gm PO DAILY PRN PRN Reason: Constipation Tolterodine Tartrate (Detrol La) 2 mg PO DAILY [facility] STROKE Vital Signs/Narrative: Vital Signs Temp Pulse Resp BP Pulse Ox 04/24/19 18:51 76 22 H 91 04/24/19 18:45 73 18 186/107 H 88 04/24/19 18:30 74 16 197/93 H 84 04/24/19 18:15 71 16 164/76 H 83 04/24/19 18:13 98.4 F 71 16 170/77 H 85 Medical Necessity - Tobacco Use Smoking Status: Never smoker Tobacco Use: Non-smoker Assessment/Plan All Active Problems (Last Reviewed 04/24/19 @ 17:56 by Manny Sanchez DPM) Dislocation of right ankle joint (Acute) Closed right ankle fracture (Acute) Other acute postprocedural pain (Acute) 63 y/o admitted post op o/a of post op hypoxia 1. Acute respiratory failure due to post op hypoxia likely due to undiagnosed sleep apnea and obesity hypoventilation syndrome Patient's she has had previous episodes of postop hypoxia requiring BIPAP. Patient denies ever being told she has sleep apnea though according to nurse, says she was given CPAP but has not been compliant no ABG done when she was hypoxic; On BiPAP. Saturating 96%. will hold off on ABG for now, as she is on BIPAP and saturating well. To get ABG tomorrow morning as she is being weaned off BIPAP as tolerated Admit to ICU. Consult flight deck officer. Patient does have a pulmonary function test done on 02/24/2016 which showed no evidence of large airways obstructive ventilatory defect; there was an isolated moderate reduction in diffusion capacity which may be indicated of an underlying pulmonary vascular disorder such as pulmonary hypertension. TTE was recommended. She also has an overnight pulse oximetry done on 06/21/2017 which showed that she had 27 desaturation events over 3 minutes and 131 desaturation events less than 3 minutes duration. Try to wean off BiPAP onto nasal cannula as tolerated. Breathing treatments with DuoNeb's. 2. Right ankle fracture s/p ORIF by podiatry. Today is POD 0 management as per podiatry. Pain management as per podiatry. 3. History of CAD status post stents: On Plavix and lisinopril as well as metoprolol. Also on statin. 4. Type 2 diabetes mellitus: We will hold metformin. Insulin sliding scale. Accu-Cheks ACHS 5. Depression: on cymbalta 6. Morbid obesity: BMI is 48.3. This is complicating acute care, expected recovery and prognosis. 7. History of right-sided CVA: Stable. On Plavix and statin. 8. Hypertension: Blood pressure markedly elevated in the 190s. On lisinopril and metoprolol. IV hydralazine PRN. Also on amlodipine. DVT prophylaxis: defer to primary team- podiatry Code Status: Full code Patient counseled extensively about different types of CODE STATUS including full code, DNR CCA and DNR CCA. Patient elects to be full code. Total [id number] time 16 minutes. Code Visit Inpatient E&M: 43450 Init Hosp L3 Procedures: 73413 Advncd Care Plan 30 Min
[2019-04-24] MEDS: Lisinopril 20 MG Tablet PO (21:19)
[2019-04-24] MEDS: Atorvastatin Calcium 40 MG Tablet PO (21:19)
[2019-04-24] MEDS: 0.9% Saline Lock 10 ML Syringe IV (21:19)
[2019-04-24] MEDS: Metoprolol Tartrate 25 MG Tablet PO (21:19)
[2019-04-24] MEDS: ALPRAZolam 0.5 MG Tablet 1 MG PO (21:19)
[2019-04-24] MEDS: Clopidogrel Bisulfate 75 MG Tablet PO (21:19)
[2019-04-24] MEDS: HYDROmorphone 1 MG/ML Syringe IV (21:19)
[2019-04-24] MEDS: Cefazolin 2 GM in 0.9% Normal Saline 100 ML IV (22:22)
[2019-04-24 22:36] LABS: Bedside Glucose 165 mg/dL (70-110)
[2019-04-24] MEDS: oxyCODONE 5 MG Tablet PO (22:45)
[2019-04-24] MEDS: Insulin Lispro 100 UNIT/ML INSULN.PEN SC (22:45)
--- NOTE | 2019-04-24 23:22 | CPS ---
pt resting comfortably on 3L NC SpO2 94%, no resp distress noted
[2019-04-25] VITALS (19 sets, daily range): BP systolic 107–180; BP diastolic 43–89; PULSE 62–85; RESP 12–18; TEMP 36.3–36.9; O2SAT 92–97
[2019-04-25] MEDS: hydrALAZINE 20 MG/ML Vial 10 MG IV (01:14)
[2019-04-25] MEDS: HYDROmorphone 1 MG/ML Syringe IV ×4 (01:15→21:21)
[2019-04-25 04:49] LABS: Absolute Lymphocyte Count 0.92 X10^3/uL (0.83-4.51); Absolute Neutrophil Count 11.7 X10^3/uL (2.0-7.7); Basophil# 0.02 X10^3/uL; Basophil% 0.2 % (0-1); Hematocrit 33.8 % (37-47); Hemoglobin 10.3 g/dL (12.0-15.0); Lymphocyte # 0.92 X10^3/ul (4.0); Lymphocyte % 7.1 % (19-41); Mean Corp Hgb Conc 30.5 g/dL (32-36); Mean Corpuscular Hgb 25.2 pg (27.0-32.0); Mean Corpuscular Volume 82.6 fL (81-99); Mean Platelet Vol. 9.4 fl (6.2-12.0); Monocyte# 0.36 X10^3/uL; Monocyte% 2.8 % (0-10); NRBC Flagged by Analyzer 0 % (0-5); Neutrophil # 11.65 X10^3/uL (2.7-7.7); Neutrophil % 89.2 % (47-70); POSITIVE MORPHOLOGY YES; Platelet Count 348 K/mm3 (150-450); RBC Distribution Width CV 15.9 % (11.6-14.6); RBC Distribution Width SD 46.6 fl (35.1-43.9); Red Blood Count 4.09 M/mm3 (4.2-5.4)
[2019-04-25] MEDS: Cefazolin 2 GM in 0.9% Normal Saline 100 ML IV ×3 (05:03→21:04)
[2019-04-25 05:04] LABS: Differential Indicated SCAN CRITERIA MET
[2019-04-25 05:08] LABS: Anion Gap 5 (5-15); BUN 20 mg/dL (7-18); BUN/Creat Ratio 16.7 RATIO (10-20); Chloride 104 mmol/L (98-107); EST Glomerular Filtration Rate 48 mL/min (>60); Est Glom Filt Rate - Afr Amer 58 mL/min (>60); Estimated Creatinine Clearance 36.97 ml/min; Glucose 155 mg/dL (74-106); Potassium 4.6 mmol/L (3.5-5.1); Sodium Level 138 mmol/L (136-145)
[2019-04-25 05:52] LABS: Differential Comment SCANNED
[2019-04-25] MEDS: oxyCODONE 5 MG Tablet PO ×2 (06:39→18:47)
[2019-04-25 06:51] LABS: Bedside Glucose 116 mg/dL (70-110)
--- NOTE | 2019-04-25 08:06 | PN_ITS ---
Patient Problems: Active and Suspected Problems (Last Reviewed 04/24/19 @ 17:56 by Manny Sanchez DPM) Dislocation of right ankle joint (Acute) Closed right ankle fracture (Acute) Other acute postprocedural pain (Acute) Reason for Visit: Acute hypoxic respiratory failure/respiratory distress after ankle surgery in the PACU Objective: Patient is morbid obese. Denies any chest pain or shortness of breath. She has never had sleep study done or continuous night pulse oximetry evaluation. Clinically it seems she might have obstructive sleep apnea Vitals/I&O's: Vital Signs Temp Pulse Resp BP Pulse Ox 98.5 F 78 14 107/89 H 92 04/25/19 04:00 04/25/19 07:45 04/25/19 06:00 04/25/19 06:00 04/25/19 07:07 Oxygen Flow Rate (L/min) 3 Oxygen Delivery Method Room Air Weight: 268 lb 8.368 oz Body Mass Index (BMI) 49.1 Finger Stick Blood Glucose 144 Intake and Output for Last 24 Hours 04/23/19 04/24/19 04/25/19 23:59 23:59 23:59 Intake Total 1997.33 / 1997.33 423.5 / 423.5 Output Total 550 / 550 600 / 600 Balance 1448.33 / 1448.33 -176.5 / -176.5 General: Alert, Oriented x3, Cooperative HEENT: Atraumatic, PERRLA, EOMI, Normocephalic Oral: No Gingival or Mucosal Lesions/ Ulcerations, Dry Mucosa, - - Oropharyngeal structures are crowded. Deep pharyngeal structures could not be visualized. Neck: Supple, No JVD, Negative Carotid Bruits Lungs: No rhonchi, No wheeze, No rales, Diminished - Air entry diminished in bilateral lung bases Cardiovascular: Regular rate, No murmurs Abdomen: Bowel Sounds Present, Soft, Non Tender, Non-Distended Extremities: Capillary Refill Less than 3 Seconds, - - Right ankle under dressing. Andrzej wrap bandage. Toenails have good capillary refill and are pinkish in color Skin: Ulcer/ Wound - Right ankle postoperative Musculoskeletal: No Tenderness to Palpation of Joints or Extremities, Arthritic Changes, - - BP scarring right ankle had 3 surgeries. Neurological: Cranial nerves II-XII grossly intact, Deep Tendon Reflexes 2+/4 and Symmetrical, Neuro grossly intact Psych/Mental Status: Normal Affect, Appropriate Laboratory Results 04/24/19 11:23: POC Glucose 109 04/24/19 18:23: POC Glucose 144 H 04/24/19 22:31: POC Glucose 165 H 04/25/19 04:35: WBC 13.0 H, RBC 4.09 L, Hgb 10.3 L, Hct 33.8 L, MCV 82.6, MCH 25.2 L, MCHC 30.5 L, RDW Std Deviation 46.6 H, RDW Coeff of Uriel 15.9 H, Plt Count 348, MPV 9.4, Immature Gran % (Auto) 0.700, Neut % (Auto) 89.2 H, Lymph % (Auto) 7.1 L, Terrell % (Auto) 2.8, Eos % (Auto) 0.0, Baso % (Auto) 0.2, Absolute Neuts (auto) 11.7 H, Absolute Lymphs (auto) 0.92, Nucleated RBC % 0, Differential Comment SCANNED 04/25/19 04:35: Sodium 138, Potassium 4.6, Chloride 104, Carbon Dioxide 29.0, Anion Gap 5, BUN 20 H, Creatinine 1.20 H, Estim Creat Clear Calc 36.97, Est GFR (MDRD) Af Amer 58 L, Est GFR (MDRD) Non-Af 48 L, BUN/Creatinine Ratio 16.7, Glucose 155 H, Calcium 9.0 04/25/19 06:44: POC Glucose 116 H Current Medications Hydrocodone Bitart/Acetaminophen ([place] 5mg-325mg) 1 - 2 tablet PO Q6H PRN PRN PRN Reason: Pain Score 1-5/10 Albuterol Sulfate (Ventolin Aerosols) 2.5 mg INHALATION Q2H PRN PRN PRN Reason: dyspnea, wheezing Alprazolam (Xanax) 1 mg PO BID [facility] Last Admin: 04/24/19 21:19 Dose: 1 mg Documented by: Amlodipine Besylate (Norvasc) 5 mg PO DAILY [facility] Atorvastatin Calcium (Lipitor) 40 mg PO QHS [facility] Last Admin: 04/24/19 21:19 Dose: 40 mg Documented by: Clopidogrel Bisulfate (Plavix) 75 mg PO QHS [facility] Last Admin: 04/24/19 21:19 Dose: 75 mg Documented by: Duloxetine HCl (Cymbalta) 60 mg PO DAILY [facility] Famotidine (Pepcid) 20 mg PO DAILY [facility]ous [facility] Folic Acid (Folic Acid[facility] Glucagon () 1 mg IM .X1 PRN PRN Reason: Hypoglycemia Hydralazine HCl (Apresoline Iv) 10 mg IV Q4H PRN PRN PRN Reason: SBP > 160 Last Admin: 04/25/19 01:14 Dose: 10 mg Documented by: Hydromorphone HCl (Dilaudid Inj) 1 mg IV Q2H PRN PRN PRN Reason: Pain Score 6-10/10 Last Admin: 04/25/19 01:15 Dose: 1 mg Documented by: Cefazolin Sodium 2 gm/ Sodium (Chloride) 110 mls @ 150 mls/hr IV Q8 [facility] Last Infusion: 04/25/19 05:47 Dose: Infused Documented by: Dextrose (Dextrose 10%-Water) 250 mls @ 999 mls/hr IV .Q16M PRN; Protocol PRN Reason: HYPOGLYCEMIA Sodium Chloride () 250 mls @ 15 mls/hr IV .[id number] PRN PRN Reason: Saline Flush Last Infusion: 04/25/19 06:40 Dose: 0 mls/hr Documented by: Sodium Chloride () 250 mls @ 15 mls/hr IV .[id number] PRN PRN Reason: Additional IVPB Infusion Insulin Human Lispro (Humalog Kwikpen (Bkc)) 0 unit SC ACHS [facility]; Protocol Last Admin: 04/25/19 06:45 Dose: Not Given Documented by: Lisinopril (Zestril) 20 mg PO BID [facility] Last Admin: 04/24/19 21:19 Dose: 20 mg Documented by: Metformin HCl (Glucophage) [facility] Metoprolol Tartrate (Lopressor (Beta Ana)) 25 mg PO BID [facility] Last Admin: 04/24/19 21:19 Dose: 25 mg Documented by: Morphine Sulfate () 2 mg IV Q4H PRN PRN PRN Reason: Pain Score 1-5/10 Ondansetron HCl (Zofran) 4 mg IV Q8H PRN PRN PRN Reason: Nausea Oxycodone HCl (Oxyir) 5 mg PO TID PRN PRN Reason: Pain Score 1-10/10 Last Admin: 04/25/19 06:39 Dose: 5 mg Documented by: Polyethylene Glycol (Miralax) 17 gm PO DAILY PRN PRN Reason: Constipation Prochlorperazine Maleate (Compazine Tablet) 5 - 10 mg PO Q6H PRN PRN PRN Reason: Nausea/vomiting Sodium Chloride () 10 - 40 ml IV UD PRN PRN Reason: SALINE FLUSH Last Admin: 04/24/19 21:19 Dose: 20 ml Documented by: Tolterodine Tartrate (Detrol La) 2 mg PO DAILY [facility] Vital Signs/Narrative: Vital Signs Pulse Resp BP Pulse Ox 04/25/19 07:45 78 04/25/19 07:07 92 04/25/19 06:00 76 14 107/89 H 95 04/25/19 05:00 69 16 151/48 H 93 04/25/19 04:47 93 Medical Necessity - Tobacco Use Smoking Status: Never smoker Tobacco Use: Non-smoker Assessment/Plan All Active Problems (Last Reviewed 04/24/19 @ 17:56 by Manny Sanchez DPM) Dislocation of right ankle joint (Acute) Closed right ankle fracture (Acute) Other acute postprocedural pain (Acute) This is a 63 y/o female with history of morbid obesity, right knee multiple surgeries was admitted with right ankle fracture. She had right ankle arthroscopy with repair of chondral defect and ORIF of right lateral malleolar fracture. Patient was admitted in ICU after she was found desaturating, pulse ox 81% on 6 L of oxygen and was put on nonrebreather. After that she was s tarted on BiPAP and hospitalist team was consulted and transferred to ICU. 1. Acute respiratory failure due to post op hypoxia; most probably exacerbated by anesthetic medication on baseline undiagnosed obstructive sleep apnea/obesity hypoventilation syndrome Patient is weaned off BiPAP. She did not require BiPAP in ICU overnight. Advised outpatient sleep study and PFT. Pulse ox currently 95% on room air and at night she was 94% on 3 L of oxygen. pulmonary function test done on 02/24/2016 which showed no evidence of large airways obstructive ventilatory defect; there was an isolated moderate reduction in diffusion capacity which may be indicated of an underlying pulmonary vascular disorder such as pulmonary hypertension. TTE was recommended. * She also has an overnight pulse oximetry done on 06/21/2017 which showed that she had 27 desaturation events over 3 minutes and 131 desaturation events less than 3 minutes duration. 2D echo is ordered * Breathing treatments with DuoNeb as needed. 2. Right ankle fracture * s/p ORIF by podiatry. Patient had ORIF done on 04/24/2019 * management as per podiatry. Pain management as per podiatry. 3. History of CAD status post stents: On Plavix and lisinopril as well as metoprolol. Also on statin. 4. Type 2 diabetes mellitus: We will hold metformin. Insulin sliding scale. Accu-Cheks ACHS 5. Depression: on cymbalta 6. Morbid obesity: BMI is 48.3. This is complicating acute care, expected recovery and prognosis. 7. History of right-sided CVA: Stable. On Plavix and statin. 8. Hypertension: Blood pressure was markedly elevated in the 190s. On lisinopril and metoprolol. IV hydralazine PRN. Also on amlodipine. Currently, blood pressure is controlled 136/56 DVT prophylaxis: Started on Eliquis 2.5 mg twice daily Code Visit Inpatient E&M: 28519 Subs Hosp L2
[2019-04-25] MEDS: metFORMIN HCl 500 MG Tablet PO ×2 (08:11→17:27)
[2019-04-25] MEDS: Tolterodine Tartrate 2 MG CAP.SA PO (08:11)
[2019-04-25] MEDS: Metoprolol Tartrate 25 MG Tablet PO ×2 (08:11→21:09)
[2019-04-25] MEDS: Ferrous Sulfate 325 MG Tablet PO ×2 (08:11→17:27)
[2019-04-25] MEDS: Famotidine 20 MG Tablet PO (08:11)
[2019-04-25] MEDS: amLODIPine 5 MG Tablet PO (08:11)
[2019-04-25] MEDS: Folic Acid 1 MG Tablet PO (08:11)
[2019-04-25] MEDS: DULoxetine Hcl 60 MG Capsule PO (08:11)
[2019-04-25] MEDS: Lisinopril 20 MG Tablet PO ×2 (08:12→21:09)
--- NOTE | 2019-04-25 08:15 | ECHOCS_ITS ---
Reason For Study: DYSPNEA/SOB Procedure This was a 2D Doppler, Color Flow transthoracic echocardiogram. The study was technically difficult. Contrast injection was performed. Exam performed portable in ICU/CCU. Left Ventricle Normal LV size. Left ventricular systolic function is normal. The estimated ejection fraction is 70 %. No evidence for diastolic dysfunction. No regional wall motion abnormalities noted. Right Ventricle Normal RV size. Normal systolic function. Atria Normal left atrium. Normal right atrium. No doppler evidence for ASD. Mitral Valve There is no mitral annular calcification. Normal mitral valve. Trivial mitral valve insufficiency. Tricuspid Valve Normal tricuspid valve. Trivial tricuspid valve insufficiency. Right ventricular systolic pressure estimated to be 39 mmHg. Aortic Valve Trisinus/trileaflet aortic valve. Mild focal aortic valve calcification. Trivial aortic valve insufficiency. Pulmonic Valve The pulmonic valve is not well visualized. Great Vessels Normal sized aortic root. Pericardium/Pleural No pericardial effusion. Medication Diluted definity 2.0ml given slow IV push to enhance endocardial definition. MMode/2D Measurements & Calculations Ao root diam: 3.3 cm LAV(MOD-bp): 43.3 ml LA A4 area: 18.3 cm2 LAV(MOD-bp) Indexed: 20.0 ml/m2 LAV(MOD-sp2): 40.4 ml LAV(MOD-sp4): 45.7 ml LA dimension(2D): 3.2 cm RA A4 area: 14.8 cm2 Time Measurements MV dec time: 0.17 sec Doppler Measurements & Calculations MV E max owen: 111.6 cm/sec Lat Peak E' Owen: 10.1 cm/sec Med Peak E' Owen: 8.2 cm/sec MV A max owen: 98.9 cm/sec E/E' lat: 11.1 E/E' med: 13.6 MV E/A: 1.1 Ao V2 max: 163.2 cm/sec LV V1 max: 146.7 cm/sec PA V2 max: 90.4 cm/sec Ao max P.7 mmHg LV V1 max P.6 mmHg TR max owen: 300.1 cm/sec TR max P.1 mmHg Interpretation Summary The study was technically difficult. Contrast injection was performed. Left ventricular systolic function is normal. The estimated ejection fraction is 70 %. Trivial mitral valve insufficiency. Trivial tricuspid valve insufficiency. Mild focal aortic valve calcification. Trivial aortic valve insufficiency. Right ventricular systolic pressure estimated to be 39 mmHg. No evidence for diastolic dysfunction. Ordering Physician: Brian Ribeiro Referring Physician: Manny Sanchez Performed By: Tala Florian RDCS, RVT
[2019-04-25] MEDS: 0.9% Saline Lock 10 ML Syringe IV ×4 (08:20→21:21)
[2019-04-25] MEDS: ALPRAZolam 0.5 MG Tablet 1 MG PO ×2 (08:20→21:23)
--- NOTE | 2019-04-25 09:27 | CASEMGMT ---
SW met w/pt in room, reviewed prior level of function and discharge plan. PCP: Dr. Lion Specialists: Dr. Griffith--pain management, Dr. Alegre--cardiology, Dr. Harding--urology, Dr. Sanchez--podiatry Insurance/Prescription Coverage: Medicare, MMO, and a Part D Preferred [facility]acy: [facility] LW/POA: Pt states has papers, not on file, is POA. SW asked pt to have the papers brought in as able. Living arrangements/LNOK: Pt lives w/, daughter and grandson staying w/pt at present also. Daughter and grandson going home in two weeks. and daughter both have medical issues and can help pt on a limited basis Prior level of function: Prior to breaking her ankle, pt was using a rollator. Since breaking her ankle, pt has been riding her rollator. Since her ankle fracture family has been helping her with almost all ADLs, including cooking, cleaning, transportation, getting her to and from the bathroom, bathing, medications. Pt takes her meds in the morning and assists in the evening. DME: Pt has rollator, bedside commode, scooter, just built a ramp, shower chair. Plan: Pt plans to go to a [facility] from here. SW and pt discussed both SNF and rehab, SNF seems to be the appropriate level of care at this time. SW provided a list to pt of assisted facilities in [facility] with the Medicare Star ratings. Pt is not certain where she would like to go, needs to speak w/her who will be here some time today. Pt mentioned familiarity with [facility] and [facility] but is not sure if she wants to go to either of these places. TCU was also discussed. SW explained will return when her gets here and can make a referral wherever she would like. SW did call TCU, they would have a bed on Sunday. SW also called [facility] to check on bed availability, they do have one female bed available. SW will continue to follow, awaiting arrival of pt's . HELEN Garces
[2019-04-25] MEDS: tiZANidine HCl 2 MG Tablet 4 MG PO ×2 (10:05→21:08)
[2019-04-25] MEDS: APIXABAN 2.5 MG TABLET PO ×2 (10:05→21:09)
[2019-04-25] MEDS: Pantoprazole Sodium 40 MG Tablet PO (10:05)
[2019-04-25] MEDS: Insulin Lispro 100 UNIT/ML INSULN.PEN SC ×3 (11:40→21:34)
[2019-04-25 11:45] LABS: Bedside Glucose 187 mg/dL (70-110)
--- NOTE | 2019-04-25 11:51 | CASEMGMT ---
Social Work Note PALMER met with pt and pt's Deyvi and daughter Bailee present in room. Pt gave this worker permission to speak to her in front of her guest. PALMER spoke with pt and pt's family regarding SNF. Pt and pt's family agreeable to TCU. PALMER explained pt will need three midnight stay and that CM is checking on inpatient vs obs status last night and if pt was inpatient last night then pt could discharge to TCU Sunday. If pt was not in patient last night then pt can discharge to TCU Sunday. Pt and pt's family state understanding. PALMER spoke with RN COLEMAN who states registration is now updated that last night pt should have been admitted inpatient and they will update so it shows last night pt was inpatient. PALMER placed a call to Angy in TCU and updated her on this. Angy states she is able to accept pt Sunday. Green sheet on chart. Plan: TCU Sunday Jaymie Reynolds [employer] TEMPLATE [employer]KER, [employer]AFLET DISTRIBUTOR
--- NOTE | 2019-04-25 12:10 | PCM.TXEXTCAR ---
- Diet 04/24/19 19:10 Diet: Calorie Controlled Food consistency:: Regular Liquid Consistency:: Regular/Thin How many daily calories?: 1800 calorie - Routine Orders/Code Status Code Status: Full Code - Wound(s) RLL Wound Type: Surgical Incision Dressing Change: keep dressing clean, dry and intact until follow up appointment with Dr. Sanchez - Suggestions for Active Care Positions to Avoid: keep right foot elevated above level of heart at all times when not walking - Therapies Weight Bearing: Non weight bearing - to right leg Extremity Affected:: Right Lower Physical Therapy: Eval and Treat Occupational Therapy: Eval and Treat - Problem/Diagnosis (1) Dislocation of right ankle joint Status: Acute Current Visit: Yes (2) Closed right ankle fracture Status: Acute Current Visit: Yes (3) Other acute postprocedural pain Status: Acute Current Visit: Yes (4) Type 2 diabetes mellitus Status: Chronic Comment: Hemoglobin A1c is 7.5% Current Visit: No (5) Essential hypertension Status: Chronic Current Visit: No (6) Pulmonary hypertension Status: Chronic Current Visit: No (7) Morbid obesity Status: Chronic Current Visit: No - Allergies/Procedures Done in Hospital Allergies/Adverse Reactions: Allergies ciprofloxacin [From Cipro] Allergy (Verified 04/24/19 11:17) Unknown escitalopram oxalate [From Lexapro] Allergy (Verified 04/24/19 11:17) Unknown heparin Allergy (Verified 04/24/19 11:17) Unknown mupirocin [From Bactroban] Allergy (Verified 04/24/19 11:17) Unknown trazodone Allergy (Verified 04/24/19 11:17) Unknown adhesive tape Adverse Reaction (Verified 04/24/19 11:17) Other Procedures: - - ORIF right ankle-04/24/2019 - Type of Care/Length of Stay Estimated LOS: Convalescent Care Less Than 30 days Type of Care Needed: Skilled Rehab Potential: Good Prognosis: Good - Additional Orders/Day of Discharge H&P will serve as current which was dated: 04/24/19 Day of Discharge: 04/28/19 - Follow Up Care Primary Care Physician: Sudheer Lion MD [Primary Care Provider] - Please Follow Up With: Manny Sanchez DPM When: on 05/02/19, at 10:45 am in [place] Office Code Visit Inpatient E&M: 12527 Disch Hosp
--- NOTE | 2019-04-25 12:25 | PCM.PN.ORT ---
Patient Problems: Active and Suspected Problems (Last Reviewed 04/24/19 @ 17:56 by Manny Sanchez DPM) Dislocation of right ankle joint (Acute) Closed right ankle fracture (Acute) Other acute postprocedural pain (Acute) Subjective: Patient seen sitting in chair with the leg in a down position. Patient's present at bedside. Patient states that her breathing is overall feeling better. She is able to breathe normally at this time, is no longer needing the continuous pulse oximetry. Patient denies any acute events at this time. Patient admits to pain in her right ankle. Currently, patient denies fever, chills, nausea, vomiting, shortness of breath, chest pain. Patient denies right calf pain. Objective: Lower extremity physical exam: Dressing is clean, dry, intact to the right lower extremity with no evidence of strikethrough I fill time is less than 3 seconds all digits Gross and protective sensation is intact to the right lower extremity No pain in the right calf. - Physical Exam Vitals/I&O's: Vital Signs Temp Pulse Resp BP Pulse Ox 97.3 F L 66 13 130/77 H 92 04/25/19 08:00 04/25/19 09:36 04/25/19 08:00 04/25/19 09:36 04/25/19 08:00 Oxygen Flow Rate (L/min) 3 Oxygen Delivery Method Room Air Weight: 121.8 kg Body Mass Index (BMI) 49.1 Finger Stick Blood Glucose 144 Intake and Output for Last 24 Hours 04/23/19 04/24/19 04/25/19 23:59 23:59 23:59 Intake Total 1997.33 / 1997. 1423.5 / 1423.5 Output Total 550 / 550 600 / 600 Balance 1448.33 / 1448.33 823.5 / 823.5 General: Alert, Oriented x3, Cooperative, No apparent distress HEENT: Atraumatic, PERRLA Oral: Moist Mucosa Neck: Supple, No JVD Lungs: Clear to auscultation, Normal air movement Cardiovascular: Regular rate, Regular Rhythm, Normal S1, Normal S2 Abdomen: Bowel Sounds Present, Soft, Non Tender, Non-Distended, Obese Extremities: Capillary Refill Less than 3 Seconds, No Calf Tenderness Neurological: Sensory exam intact to light touch and pain Psych/Mental Status: Alert and oriented to time, place, person, mood and affect Laboratory Results 04/24/19 18:23: POC Glucose 144 H 04/24/19 22:31: POC Glucose 165 H 04/25/19 04:35: WBC 13.0 H, RBC 4.09 L, Hgb 10.3 L, Hct 33.8 L, MCV 82.6, MCH 25.2 L, MCHC 30.5 L, RDW Std Deviation 46.6 H, RDW Coeff of Uriel 15.9 H, Plt Count 348, MPV 9.4, Immature Gran % (Auto) 0.700, Neut % (Auto) 89.2 H, Lymph % (Auto) 7.1 L, [place] % (Auto) 2.8, Eos % (Auto) 0.0, Baso % (Auto) 0.2, Absolute Neuts (auto) 11.7 H, Absolute Lymphs (auto) 0.92, Nucleated RBC % 0, Differential Comment SCANNED 04/25/19 04:35: Sodium 138, Potassium 4.6, Chloride 104, Carbon Dioxide 29.0, Anion Gap 5, BUN 20 H, Creatinine 1.20 H, Estim Creat Clear Calc 36.97, Est GFR (MDRD) Af Amer 58 L, Est GFR (MDRD) Non-Af 48 L, BUN/Creatinine Ratio 16.7, Glucose 155 H, Calcium 9.0 04/25/19 06:44: POC Glucose 116 H 04/25/19 11:37: POC Glucose 187 H Current Medications Hydrocodone Bitart/Acetaminophen ([place] 5mg-325mg) 1 - 2 tablet PO Q6H PRN PRN PRN Reason: Pain Score 1-5/10 Albuterol Sulfate (Ventolin Aerosols) 2.5 mg INHALATION Q2H PRN PRN PRN Reason: dyspnea, wheezing Alprazolam (Xanax) 1 mg PO BID [facility] Last Admin: 04/25/19 08:20 Dose: 1 mg Documented by: Amlodipine Besylate (Norvasc) 5 mg PO DAILY [facility] Last Admin: 04/25/19 08:11 Dose: 5 mg Documented by: Apixaban (Eliquis) 2.5 mg PO BID [facility] Last Admin: 04/25/19 10:05 Dose: 2.5 mg Documented by: Atorvastatin Calcium (Lipitor) 40 mg PO QHS [facility] Last Admin: 04/24/19 21:19 Dose: 40 mg Documented by: Clopidogrel Bisulfate (Plavix) 75 mg PO QHS [facility] Last Admin: 04/24/19 21:19 Dose: 75 mg Documented by: Duloxetine HCl (Cymbalta) 60 mg PO DAILY [facility] Last Admin: 04/25/19 08:11 Dose: 60 mg Documented by: [facility]ous [facility] S[facility]) [facility] Last Admin: 04/25/19 08:11 Dose: 325 mg Documented by: Folic Acid (Folic Acid) [facility] Last Admin: 04/25/19 08:11 Dose: 1 mg Documented by: Glucagon () 1 mg IM .X1 PRN PRN Reason: Hypoglycemia Hydralazine HCl (Apresoline Iv) 10 mg IV Q4H PRN PRN PRN Reason: SBP > 160 Last Admin: 04/25/19 01:14 Dose: 10 mg Documented by: Hydromorphone HCl (Dilaudid Inj) 1 mg IV Q2H PRN PRN PRN Reason: Pain Score 6-10/10 Last Admin: 04/25/19 08:20 Dose: 1 mg Documented by: Cefazolin Sodium 2 gm/ Sodium (Chloride) 110 mls @ 150 mls/hr IV Q8 [facility] Last Infusion: 04/25/19 05:47 Dose: Infused Documented by: Dextrose (Dextrose 10%-Water) 250 mls @ 999 mls/hr IV .Q16M PRN; Protocol PRN Reason: HYPOGLYCEMIA Sodium Chloride () 250 mls @ 15 mls/hr IV .[id number] PRN PRN Reason: Saline Flush Last Infusion: 04/25/19 09:43 Dose: Infused Documented by: Sodium Chloride () 250 mls @ 15 mls/hr IV .[id number] PRN PRN Reason: Additional IVPB Infusion Insulin Human Lispro (Humalog Kwikpen (Bkc)) 0 unit SC [facility]; Protocol Last Admin: 04/25/19 11:40 Dose: 1 u Documented by: Lisinopril (Zestril) 20 mg PO BID [facility] Last Admin: 04/25/19 08:12 Dose: 20 mg Documented by: Metformin [facility] (Glucophage) [facility] Last Admin: 04/25/19 08:11 Dose: 500 mg Documented by: Metoprolol Tartrate (Lopressor (Beta Ana)) 25 mg PO BID [facility] Last Admin: 04/25/19 08:11 Dose: 25 mg Documented by: Morphine Sulfate () 2 mg IV Q4H PRN PRN PRN Reason: Pain Score 1-5/10 Ondansetron HCl (Zofran) 4 mg IV Q8H PRN PRN PRN Reason: Nausea Oxycodone HCl (Oxyir) 5 mg PO TID PRN PRN Reason: Pain Score 1-10/10 Last Admin: 04/25/19 06:39 Dose: 5 mg Documented by: Pantoprazole Sodium (Protonix) 40 mg PO DAILY [facility] Last Admin: 04/25/19 10:05 Dose: 40 mg Documented by: Polyethylene Glycol (Miralax) 17 gm PO DAILY PRN PRN Reason: Constipation Prochlorperazine Maleate (Compazine Tablet) 5 - 10 mg PO Q6H PRN PRN PRN Reason: Nausea/vomiting Sodium Chloride () 10 - 40 ml IV UD PRN PRN Reason: SALINE FLUSH Last Admin: 04/25/19 08:20 Dose: 10 ml Documented by: Tizanidine HCl (Zanaflex) 4 mg PO BID [facility] Last Admin: 04/25/19 10:05 Dose: 4 mg Documented by: Tolterodine Tartrate (Detrol La) 2 mg PO DAILY [facility] Last Admin: 04/25/19 08:11 Dose: 2 mg Documented by: Medical Necessity - Tobacco Use Smoking Status: Never smoker Tobacco Use: Non-smoker Assessment/Plan All Active Problems (Last Reviewed 04/24/19 @ 17:56 by Manny Sanchez DPM) Dislocation of right ankle joint (Acute) Closed right ankle fracture (Acute) Other acute postprocedural pain (Acute) Plan: This is a 63-year-old female with a significant past medical history 1 day status post right ankle open reduction with internal fixation Patient chart reviewed and patient was evaluated Patient experienced an acute respiratory distress event after surgical intervention. Patient was admitted to inpatient and to the ICU with supplemental oxygen and continuous pulse oximetry. Oxygen saturation increased and patient was weaned off supplemental oxygen. Patient is no longer needing a pulse oximeter. I appreciate the assistance with the hospitalist and the medicine team at this time. Thank you for helping to take part in the care of this patient. Physical therapy and Occupational Therapy consults placed for assistance with activities of daily living. At this time, patient has limited mobility of her right lower extremity due to a seizure and right knee replacements. Due to this, she does not tolerate weightbearing to the right lower extremity well. Patient will hopefully be transferred to TCU on April 27 pending approval. Patient would benefit from subacute rehab placement pending her clinical course. Continue DVT prophylaxis. Appreciate medicine input with this I will continue pain management control Patient to keep the dressing clean, dry, intact to the right lower extremity. Patient is to remain nonweightbearing to the right lower extremity with assistive devices Antibiotics were continued to assist in infection control. Patient restarted on all home medications at this time. Upon transfer, will give prescription for pain control and antibiotic prophylaxis. Thank you for all assistance in managing this patient, it is greatly appreciated.
--- NOTE | 2019-04-25 12:36 | RAD_ITS ---
STUDY: X-RAY - RIGHT ANKLE REASON FOR EXAM: Female, 63 years old. Right ORIF ANKLE TECHNIQUE: 3 view(s) of the ankle. COMPARISON: 04/24/2019, and CT scan 04/16/2019. FINDINGS: Compression plate and screws seen across the distal fibular shaft fixating a fracture into anatomic alignment and position. There appears to be widening of the tibiofibular space and of the ankle mortise. Deformity of the medial aspect of the talar dome cyst previously noted osteochondritis dissecans. Otherwise normal visualized talus and calcaneus. The visualized subtalar, talonavicular, calcaneocuboid and tarsal articulations are normal. The soft tissue structures are unremarkable. RAD/Ankle min 3 Views IMPRESSION: Satisfactory appearance distal fibular fracture status post ORIF. Question of widening of the ankle joint. Deformity of the articular surface of the talar dome and system with OCD. Electronically Signed: Olvin Soliman MD at 15:58 EST , Service support ,
[2019-04-25 17:35] LABS: Bedside Glucose 156 mg/dL (70-110)
[2019-04-25] MEDS: Atorvastatin Calcium 40 MG Tablet PO (21:09)
[2019-04-25] MEDS: Clopidogrel Bisulfate 75 MG Tablet PO (21:09)
[2019-04-25 22:36] LABS: Bedside Glucose 169 mg/dL (70-110)
[2019-04-26] VITALS (7 sets, daily range): BP systolic 120–154; BP diastolic 56–80; PULSE 64–74; RESP 16–18; TEMP 36.3–36.9; O2SAT 93–96
[2019-04-26] MEDS: oxyCODONE 5 MG Tablet PO ×2 (01:30→10:37)
[2019-04-26] MEDS: HYDROcodone Bitartrate/Apap 5/325 Tablet PO ×3 (03:54→23:09)
[2019-04-26] MEDS: Cefazolin 2 GM in 0.9% Normal Saline 100 ML IV ×3 (05:36→21:25)
[2019-04-26] MEDS: 0.9% Saline Lock 10 ML Syringe IV ×4 (05:36→21:25)
[2019-04-26 06:50] LABS: Bedside Glucose 108 mg/dL (70-110)
[2019-04-26 08:04] LABS: Absolute Lymphocyte Count 2.95 X10^3/uL (0.83-4.51); Basophil# 0.06 X10^3/uL; Basophil% 0.5 % (0-1); Eosinophil# 0.12 X10^3/uL; Eosinophils% 1.1 % (0-5); Hematocrit 28.9 % (37-47); Hemoglobin 8.6 g/dL (12.0-15.0); Lymphocyte # 2.95 X10^3/ul (4.0); Lymphocyte % 26.8 % (19-41); Mean Corp Hgb Conc 29.8 g/dL (32-36); Mean Corpuscular Hgb 25.4 pg (27.0-32.0); Mean Corpuscular Volume 85.5 fL (81-99); Mean Platelet Vol. 10.1 fl (6.2-12.0); Monocyte# 0.85 X10^3/uL; Monocyte% 7.7 % (0-10); NRBC Flagged by Analyzer 0 % (0-5); Neutrophil # 6.99 X10^3/uL (2.7-7.7); Neutrophil % 63.4 % (47-70); Platelet Count 277 K/mm3 (150-450); RBC Distribution Width CV 16.5 % (11.6-14.6); RBC Distribution Width SD 50.1 fl (35.1-43.9); Red Blood Count 3.38 M/mm3 (4.2-5.4)
[2019-04-26 08:22] LABS: Anion Gap 7 (5-15); BUN 22 mg/dL (7-18); BUN/Creat Ratio 22.1 RATIO (10-20); Chloride 105 mmol/L (98-107); EST Glomerular Filtration Rate 59 mL/min (>60); Est Glom Filt Rate - Afr Amer 72 mL/min (>60); Estimated Creatinine Clearance 44.36 ml/min; Glucose 102 mg/dL (74-106); Potassium 3.9 mmol/L (3.5-5.1); Sodium Level 140 mmol/L (136-145)
[2019-04-26] MEDS: HYDROmorphone 1 MG/ML Syringe IV ×4 (09:06→20:07)
[2019-04-26] MEDS: metFORMIN HCl 500 MG Tablet PO ×2 (09:13→17:01)
[2019-04-26] MEDS: tiZANidine HCl 2 MG Tablet 4 MG PO ×2 (09:13→21:26)
[2019-04-26] MEDS: Ferrous Sulfate 325 MG Tablet PO ×2 (09:13→17:01)
[2019-04-26] MEDS: Lisinopril 20 MG Tablet PO ×2 (09:13→21:26)
[2019-04-26] MEDS: DULoxetine Hcl 60 MG Capsule PO (09:14)
[2019-04-26] MEDS: Metoprolol Tartrate 25 MG Tablet PO ×2 (09:14→21:26)
[2019-04-26] MEDS: Pantoprazole Sodium 40 MG Tablet PO (09:14)
[2019-04-26] MEDS: amLODIPine 5 MG Tablet PO (09:14)
[2019-04-26] MEDS: Folic Acid 1 MG Tablet PO (09:15)
[2019-04-26] MEDS: APIXABAN 2.5 MG TABLET PO ×2 (09:16→21:26)
[2019-04-26] MEDS: Tolterodine Tartrate 2 MG CAP.SA PO (09:16)
[2019-04-26] MEDS: ALPRAZolam 0.5 MG Tablet 1 MG PO ×2 (09:21→21:26)
[2019-04-26] MEDS: Polyethylene Glycol 3350 17 GM PACKET PO (11:38)
[2019-04-26 12:15] LABS: Bedside Glucose 140 mg/dL (70-110)
--- NOTE | 2019-04-26 12:57 | PCM.PN.HOSP ---
Patient Problems: Active and Suspected Problems (Last Reviewed 04/24/19 @ 17:56 by Manny Sanchez DPM) Dislocation of right ankle joint (Acute) Closed right ankle fracture (Acute) Other acute postprocedural pain (Acute) Reason for Visit: Right ankle fracture status post ORIF. Acute hypoxic respiratory failure after surgery. Objective: Blood pressure is controlled. Heart rate is controlled. Pulse ox 93% on room air. Right ankle is on Andrzej wrap bandage. On physical exam: General: Alert, Oriented x3, Cooperative HEENT: Atraumatic, PERRLA, EOMI, Normocephalic Oral: No Gingival or Mucosal Lesions/ Ulcerations, Dry Mucosa, Oropharyngeal structures are crowded. Deep pharyngeal structures could not be visualized. Neck: Supple, No JVD, Negative Carotid Bruits Lungs: No rhonchi, No wheeze, No rales, Air entry diminished in bilateral lung bases. No hypoxia Cardiovascular: Regular rate, No murmurs Abdomen: Bowel Sounds Present, Soft, Non Tender, Non-Distended Extremities: Capillary Refill Less than 3 Seconds, Right ankle under dressing. Andrzej wrap bandage. Toenails have good capillary refill and are pinkish in color Skin: Ulcer/ Wound - Right ankle postoperative Musculoskeletal: No Tenderness to Palpation of Joints or Extremities, Arthritic Changes, status post right TKR, 3 surgeries on knees. Right ankle surgery. Neurological: Cranial nerves II-XII grossly intact, Deep Tendon Reflexes 2+/4 and Symmetrical, Neuro grossly intact Psych/Mental Status: Normal Affect, Appropriate Vitals/I&O's: Vital Signs Temp Pulse Resp BP Pulse Ox 98.2 F 71 18 120/80 93 04/26/19 09:11 04/26/19 09:14 04/26/19 09:11 04/26/19 09:11 04/26/19 09:11 Oxygen Flow Rate (L/min) 3 Oxygen Delivery Method Room Air Weight: 268 lb 1.314 oz Body Mass Index (BMI) 49.1 Finger Stick Blood Glucose 144 Intake and Output for Last 24 Hours 04/24/19 04/25/19 04/26/19 23:59 23:59 23:59 Intake Total 1997.33 / 1997.33 3242.50 / 3242.50 1185.75 / 1185.75 Output Total 550 / 550 1250 / 1250 1050 / 1050 Balance 1448.33 / 1448.33 1991.50 / 1991.50 135.75 / 135.75 Laboratory Results 04/25/19 17:29: POC Glucose 156 H 04/25/19 21:34: POC Glucose 169 H 04/26/19 06:40: POC Glucose 108 04/26/19 07:10: WBC 11.0, RBC 3.38 L, Hgb 8.6 L, Hct 28.9 L, MCV 85.5, MCH 25.4 L, MCHC 29.8 L, RDW Std Deviation 50.1 H, RDW Coeff of Uriel 16.5 H, Plt Count 277, MPV 10.1, Immature Gran % (Auto) 0.500, Neut % (Auto) 63.4, Lymph % (Auto) 26.8, [place] % (Auto) 7.7, Eos % (Auto) 1.1, Baso % (Auto) 0.5, Absolute Neuts (auto) 7.0, Absolute Lymphs (auto) 2.95, Nucleated RBC % 0 04/26/19 07:10: Sodium 140, Potassium 3.9, Chloride 105, Carbon Dioxide 28.0, Anion Gap 7, BUN 22 H, Creatinine 1.00, Estim Creat Clear Calc 44.36, Est GFR (MDRD) Af Amer 72, Est GFR (MDRD) Non-Af 59 L, BUN/Creatinine Ratio 22.1 H, Glucose 102, Calcium 9.0 04/26/19 11:10: Vitamin D 25-Hydroxy Pending 04/26/19 11:21: POC Glucose 140 H Current Medications Hydrocodone Bitart/Acetaminophen ([place] 5mg-325mg) 1 - 2 tablet PO Q6H PRN PRN PRN Reason: Pain Score 1-5/10 Last Admin: 04/26/19 03:54 Dose: 1 tablet Documented by: Albuterol Sulfate (Ventolin Aerosols) 2.5 mg INHALATION Q2H PRN PRN PRN Reason: dyspnea, wheezing Alprazolam (Xanax) 1 mg PO BID [facility] Last Admin: 04/26/19 09:21 Dose: 1 mg Documented by: Amlodipine Besylate (Norvasc) 5 mg PO DAILY [facility] Last Admin: 04/26/19 09:14 Dose: 5 mg Documented by: Apixaban (Eliquis) 2.5 mg PO BID [facility] Last Admin: 04/26/19 09:16 Dose: 2.5 mg Documented by: Atorvastatin Calcium (Lipitor) 40 mg PO QHS [facility] Last Admin: 04/25/19 21:09 Dose: 40 mg Documented by: Clopidogrel Bisulfate (Plavix) 75 mg PO QHS [facility] Last Admin: 04/25/19 21:09 Dose: 75 mg Documented by: Duloxetine HCl (Cymbalta) 60 mg PO DAILY [facility] Last Admin: 04/26/19 09:14 Dose: 60 mg Documented by: Ergocalciferol (Vitamin D) 50,000 unit PO Q7D@1000 [facility] Ferrous Sulfate ([facility] Sulfate) [facility] Last Admin: 04/26/19 09:13 Dose: 325 mg Documented by: Folic Acid ([facility] Acid) [facility] Last Admin: 04/26/19 09:15 Dose: 1 mg Documented by: Glucagon () 1 mg IM .X1 PRN PRN Reason: Hypoglycemia Hydralazine HCl (Apresoline Iv) 10 mg IV Q4H PRN PRN PRN Reason: SBP > 160 Last Admin: 04/25/19 01:14 Dose: 10 mg Documented by: Hydromorphone HCl (Dilaudid Inj) 1 mg IV Q2H PRN PRN PRN Reason: Pain Score 6-10/10 Last Admin: 04/26/19 11:31 Dose: 1 mg Documented by: Cefazolin Sodium 2 gm/ Sodium (Chloride) 110 mls @ 150 mls/hr IV Q8 [facility] Last Infusion: 04/26/19 06:20 Dose: Infused Documented by: Dextrose (Dextrose 10%-Water) 250 mls @ 999 mls/hr IV .Q16M PRN; Protocol PRN Reason: HYPOGLYCEMIA Sodium Chloride () 250 mls @ 15 mls/hr IV .[id number] PRN PRN Reason: Saline Flush Last Infusion: 04/26/19 11:45 Dose: 15 mls/hr Documented by: Sodium Chloride () 250 mls @ 15 mls/hr IV .[id number] PRN PRN Reason: Additional IVPB Infusion Iron Sucrose 200 mg/ Sodium (Chloride) 110 mls @ 220 mls/hr IV DAILY [facility] Stop: 04/27/19 10:29 Last Infusion: 04/26/19 11:42 Dose: Infused Documented by: Insulin Human Lispro (Humalog Kwikpen (Bkc)) 0 unit SC [facility]; Protocol Last Admin: 04/26/19 11:21 Dose: Not Given Documented by: Lisinopril (Zestril) 20 mg PO BID [facility] Last Admin: 04/26/19 09:13 Dose: 20 mg Documented by: [facility]) [facility] Last Admin: 04/26/19 09:13 Dose: 500 mg Documented by: Metoprolol Tartrate (Lopressor (Beta Ana)) 25 mg PO BID [facility] Last Admin: 04/26/19 09:14 Dose: 25 mg Documented by: Morphine Sulfate () 2 mg IV Q4H PRN PRN PRN Reason: Pain Score 1-5/10 Ondansetron HCl (Zofran) 4 mg IV Q8H PRN PRN PRN Reason: Nausea Oxycodone HCl (Oxyir) 5 mg PO TID PRN PRN Reason: Pain Score 1-10/10 Last Admin: 04/26/19 10:37 Dose: 5 mg Documented by: Pantoprazole Sodium (Protonix) 40 mg PO DAILY [facility] Last Admin: 04/26/19 09:14 Dose: 40 mg Documented by: Polyethylene Glycol (Miralax) 17 gm PO DAILY PRN PRN Reason: Constipation Last Admin: 04/26/19 11:38 Dose: 17 gm Documented by: Prochlorperazine Maleate (Compazine Tablet) 5 - 10 mg PO Q6H PRN PRN PRN Reason: Nausea/vomiting Sodium Chloride () 10 - 40 ml IV UD PRN PRN Reason: SALINE FLUSH Last Admin: 04/26/19 09:06 Dose: 10 ml Documented by: Tizanidine HCl (Zanaflex) 4 mg PO BID [facility] Last Admin: 04/26/19 09:13 Dose: 4 mg Documented by: Tolterodine Tartrate (Detrol La) 2 mg PO DAILY [facility] Last Admin: 04/26/19 09:16 Dose: 2 mg Documented by: STROKE Vital Signs/Narrative: Vital Signs Temp Pulse Resp BP Pulse Ox 04/26/19 09:14 71 04/26/19 09:11 98.2 F 71 18 120/80 93 Medical Necessity - Tobacco Use Smoking Status: Never smoker Tobacco Use: Non-smoker Assessment/Plan All Active Problems (Last Reviewed 04/24/19 @ 17:56 by Manny Sanchez DPM) Dislocation of right ankle joint (Acute) Closed right ankle fracture (Acute) Other acute postprocedural pain (Acute) This is a 63 y/o female with history of morbid obesity, right knee multiple surgeries was admitted with right ankle fracture. She had right ankle arthroscopy with repair of chondral defect and ORIF of right lateral malleolar fracture. Patient was admitted in ICU after she was found desaturating, pulse ox 81% on 6 L of oxygen and was put on nonrebreather. After that she was started on BiPAP and hospitalist team was consulted and transferred to ICU. 1. Acute respiratory failure due to post op hypoxia; most probably exacerbated by anesthetic medication on baseline undiagnosed obstructive sleep apnea/obesity hypoventilation syndrome Patient is weaned off BiPAP. She did not require BiPAP in ICU overnight. Advised outpatient sleep study and PFT. Pulse ox currently 95% on room air and at night she was 94% on 3 L of oxygen. pulmonary function test done on 02/24/2016 which showed no evidence of large airways obstructive ventilatory defect; there was an isolated moderate reduction in diffusion capacity which may be indicated of an underlying pulmonary vascular disorder such as pulmonary hypertension. TTE was recommended. She also has an overnight pulse oximetry done on 06/21/2017 which showed that she had 27 desaturation events over 3 minutes and 131 desaturation events less than 3 minutes duration. 2D echo is ordered Breathing treatments with DuoNeb as needed. 04/26/2019: Echo 04/25/2019 was done Left ventricular systolic function is normal. The estimated ejection fraction is 70 %. Trivial mitral valve insufficiency. Trivial tricuspid valve insufficiency. Mild focal aortic valve calcification. Trivial aortic valve insufficiency. Right ventricular systolic pressure estimated to be 39 mmHg. No evidence for diastolic dysfunction. 2. Right ankle fracture s/p ORIF by podiatry. Patient had ORIF done on 04/24/2019 management as per podiatry. Pain management as per podiatry. Right ankle is getting . Waiting for precertification on Sunday for SNF placement. Possible TCU 3. History of CAD status post stents: On Plavix and lisinopril as well as metoprolol. Also on statin. 4. Type 2 diabetes mellitus: Hold metformin. Insulin sliding scale. Accu-Cheks ACHS 04/26/19: Blood sugars are controlled between 140 to 187 mg/dL. 5. Depression: on cymbalta 6. Morbid obesity: BMI is 48.3. This is complicating acute care, expected recovery and prognosis. 7. History of right-sided CVA: Stable. On Plavix and statin. 8. Hypertension: Blood pressure was markedly elevated in the 190s. On lisinopril and metoprolol. IV hydralazine PRN. Also on amlodipine. Currently, blood pressure is controlled 136/56 04/26: BP was 159/82. The most recent blood pressure is 120/80. DVT prophylaxis: Started on Eliquis 2.5 mg twice daily Code Visit Inpatient E&M: 92171 Subs Hosp L2
--- NOTE | 2019-04-26 14:53 | PN.ORTHO_ITS ---
Patient Problems: Active and Suspected Problems (Last Reviewed 04/24/19 @ 17:56 by Manny Sanchez DPM) Dislocation of right ankle joint (Acute) Closed right ankle fracture (Acute) Other acute postprocedural pain (Acute) Subjective: Patient seen at bedside sitting in chair. Patient's right leg is not elevated above the level of the heart. Patient is also externally rotated with placing pressure on the lateral aspect of the right ankle in the area of the surgical incision. Patient's is present at bedside at this time. Patient states that her pain is been well controlled with the IV medication, but the oral medication has not worked. Patient states that she is having difficulty ambulating at this time. Patient states that she may not want to go to rehab after all, but interjects and states that he believes that she should go to rehab. Patient denies any other acute complaints at this time. Currently, patient denies fever, chills, nausea, vomiting, shortness of breath, chest pain. Objective: Lower extremity physical exam: Dressing is clean, dry, intact to the right lower extremity with no evidence of strikethrough capillary fill time is less than 3 seconds all digits Gross and protective sensation is intact to the right lower extremity No pain in the right calf. - Physical Exam Vitals/I&O's: Vital Signs Temp Pulse Resp BP Pulse Ox 97.4 F L 64 16 132/56 H 96 04/26/19 14:07 04/26/19 14:07 04/26/19 14:07 04/26/19 14:07 04/26/19 14:07 Oxygen Flow Rate (L/min) 3 Oxygen Delivery Method Room Air Weight: 121.6 kg Body Mass Index (BMI) 49.1 Finger Stick Blood Glucose 144 Intake and Output for Last 24 Hours 04/24/19 04/25/19 04/26/19 23:59 23:59 23:59 Intake Total 1997.33 / 1997.33 3242.50 / 3242.50 1217.50 / 1217.50 Output Total 550 / 550 1250 / 1250 1050 / 1050 Balance 1448.33 / 1448.33 1992.50 / 1992.50 167.50 / 167.50 General: Alert, Oriented x3, Cooperative HEENT: Atraumatic Oral: Moist Mucosa Neck: Supple, No JVD Lungs: Clear to auscultation, Normal air movement Cardiovascular: Regular rate, Regular Rhythm Abdomen: Bowel Sounds Present, Soft, Non Tender, Non-Distended, Obese Extremities: Capillary Refill Less than 3 Seconds Skin: No rashes, No breakdown Musculoskeletal: Tenderness - of right ankle Neurological: Sensory exam intact to light touch and pain Psych/Mental Status: Alert and oriented to time, place, person, mood and affect Laboratory Results 04/25/19 17:29: POC Glucose 156 H 04/25/19 21:34: POC Glucose 169 H 04/26/19 06:40: POC Glucose 108 04/26/19 07:10: WBC 11.0, RBC 3.38 L, Hgb 8.6 L, Hct 28.9 L, MCV 85.5, MCH 25.4 L, MCHC 29.8 L, RDW Std Deviation 50.1 H, RDW Coeff of Uriel 16.5 H, Plt Count 277, MPV 10.1, Immature Gran % (Auto) 0.500, Neut % (Auto) 63.4, Lymph % (Auto) 26.8, [place] % (Auto) 7.7, Eos % (Auto) 1.1, Baso % (Auto) 0.5, Absolute Neuts (auto) 7.0, Absolute Lymphs (auto) 2.95, Nucleated RBC % 0 04/26/19 07:10: Sodium 140, Potassium 3.9, Chloride 105, Carbon Dioxide 28.0, Anion Gap 7, BUN 22 H, Creatinine 1.00, Estim Creat Clear Calc 44.36, Est GFR (MDRD) Af Amer 72, Est GFR (MDRD) Non-Af 59 L, BUN/Creatinine Ratio 22.1 H, Glucose 102, Calcium 9.0 04/26/19 11:10: Vitamin D 25-Hydroxy Pending 04/26/19 11:21: POC Glucose 140 H Current Medications Hydrocodone Bitart/Acetaminophen (Golconda 5mg-325mg) 1 - 2 tablet PO Q6H PRN PRN PRN Reason: Pain Score 1-5/10 Last Admin: 04/26/19 03:54 Dose: 1 tablet Documented by: Albuterol Sulfate (Ventolin Aerosols) 2.5 mg INHALATION Q2H PRN PRN PRN Reason: dyspnea, wheezing Alprazolam (Xanax) 1 mg PO BID [facility] Last Admin: 04/26/19 09:21 Dose: 1 mg Documented by: Amlodipine Besylate (Norvasc) 5 mg PO DAILY [facility] Last Admin: 04/26/19 09:14 Dose: 5 mg Documented by: Apixaban (Eliquis) 2.5 mg PO BID [facility] Last Admin: 04/26/19 09:16 Dose: 2.5 mg Documented by: Atorvastatin Calcium (Lipitor) 40 mg PO QHS [facility] Last Admin: 04/25/19 21:09 Dose: 40 mg Documented by: Clopidogrel Bisulfate (Plavix) 75 mg PO QHS [facility] Last Admin: 04/25/19 21:09 Dose: 75 mg Documented by: Duloxetine HCl (Cymbalta) 60 mg PO DAILY [facility] Last Admin: 04/26/19 09:14 Dose: 60 mg Documented by: Ergocalciferol (Vitamin D) 50,000 unit PO Q7D@1000 [facility] Last Admin: 04/26/19 14:14 Dose: 50,000 unit Documented by: [facility]ous S[facility]) [facility] Last Admin: 04/26/19 09:13 Dose: 325 mg Documented by: Folic Acid (Folic Acid) [facility] Last Admin: 04/26/19 09:15 Dose: 1 mg Documented by: Glucagon () 1 mg IM .X1 PRN PRN Reason: Hypoglycemia Hydralazine HCl (Apresoline Iv) 10 mg IV Q4H PRN PRN PRN Reason: SBP > 160 Last Admin: 04/25/19 01:14 Dose: 10 mg Documented by: Hydromorphone HCl (Dilaudid Inj) 1 mg IV Q4H PRN PRN PRN Reason: Pain Score 6-10/10 Cefazolin Sodium 2 gm/ Sodium (Chloride) 110 mls @ 150 mls/hr IV Q8 [facility] Last Admin: 04/26/19 13:52 Dose: 150 mls/hr Documented by: Dextrose (Dextrose 10%-Water) 250 mls @ 999 mls/hr IV .Q16M PRN; Protocol PRN Reason: HYPOGLYCEMIA Sodium Chloride () 250 mls @ 15 mls/hr IV .[id number] PRN PRN Reason: Saline Flush Last Infusion: 04/26/19 13:52 Dose: 0 mls/hr Documented by: Sodium Chloride () 250 mls @ 15 mls/hr IV .[id number] PRN PRN Reason: Additional IVPB Infusion Iron Sucrose 200 mg/ Sodium (Chloride) 110 mls @ 220 mls/hr IV DAILY [facility] Stop: 04/27/19 10:29 Last Infusion: 04/26/19 11:42 Dose: Infused Documented by: Insulin Human Lispro (Humalog Kwikpen (Bkc)) [address] [facility]; Protocol Last Admin: 04/26/19 11:21 Dose: Not Given Documented by: Lisinopril (Zestril) 20 mg PO BID [facility] Last Admin: 04/26/19 09:13 Dose: 20 mg Documented by: Metformin [facility] ([facility]ophage) [facility] Last Admin: 04/26/19 09:13 Dose: 500 mg Documented by: Metoprolol Tartrate (Lopressor (Beta Ana)) 25 mg PO BID [facility] Last Admin: 04/26/19 09:14 Dose: 25 mg Documented by: Morphine Sulfate () 2 mg IV Q4H PRN PRN PRN Reason: Pain Score 1-5/10 Ondansetron HCl (Zofran) 4 mg IV Q8H PRN PRN PRN Reason: Nausea Oxycodone HCl (Oxyir) 5 mg PO TID PRN PRN Reason: Pain Score 1-10/10 Last Admin: 04/26/19 10:37 Dose: 5 mg Documented by: Pantoprazole Sodium (Protonix) 40 mg PO DAILY [facility] Last Admin: 04/26/19 09:14 Dose: 40 mg Documented by: Polyethylene Glycol (Miralax) 17 gm PO DAILY PRN PRN Reason: Constipation Last Admin: 04/26/19 11:38 Dose: 17 gm Documented by: Prochlorperazine Maleate (Compazine Tablet) 5 - 10 mg PO Q6H PRN PRN PRN Reason: Nausea/vomiting Sodium Chloride () 10 - 40 ml IV UD PRN PRN Reason: SALINE FLUSH Last Admin: 04/26/19 13:52 Dose: 10 ml Documented by: Tizanidine HCl (Zanaflex) 4 mg PO BID [facility] Last Admin: 04/26/19 09:13 Dose: 4 mg Documented by: Tolterodine Tartrate (Detrol La) 2 mg PO DAILY [facility] Last Admin: 04/26/19 09:16 Dose: 2 mg Documented by: Medical Necessity - Tobacco Use Smoking Status: Never smoker Tobacco Use: Non-smoker Assessment/Plan All Active Problems (Last Reviewed 04/24/19 @ 17:56 by Manny Sanchez DPM) Dislocation of right ankle joint (Acute) Closed right ankle fracture (Acute) Other acute postprocedural pain (Acute) Plan: This is a 63-year-old female with a significant past medical history 2 daysstatus post right ankle open reduction with internal fixation Patient chart reviewed and patient was evaluated Patient experienced an acute respiratory distress event after surgical intervention. Patient was admitted to inpatient and to the ICU with supplemental oxygen and continuous pulse oximetry. Oxygen saturation increased and patient was weaned off supplemental oxygen. Patient is no longer needing a pulse oximeter and was transferred to the med surg unit. She is no longer on supplemental oxygen. I appreciate the assistance with the hospitalist and the medicine team at this time. Thank you for helping to take part in the care of this patient. Patient found to be anemic, iron supplementation ordered by hospitalist. Waiting for recheck H&H. Patient is asymptomatic at this time Physical therapy and Occupational Therapy consults placed for assistance with activities of daily living. At this time, patient has limited mobility of her right lower extremity due to a seizure and right knee replacements. Due to this, she does not tolerate weightbearing to the right lower extremity well. Patient will hopefully be transferred to TCU on April 28 pending approval. Patient would benefit from rehabilitation placement. Patient is having difficulty weaning off IV pain medication. I have increased the time between dosages and have had a full discussion with the patient about this. I discussed with the patient that she would not have the IV medication while she is at the TCU, and she must learn to tolerate the pain with the oral medication. Patient displayed verbal understanding and she is attempting to wean herself off the IV medication as well. Prescription for percocet left in chart for patient to begin upon transfer to TCU. Continue DVT prophylaxis. Appreciate medicine input with this Patient to keep the dressing clean, dry, intact to the right lower extremity. Patient is to remain nonweightbearing to the right lower extremity with assistive devices Antibiotics were continued to assist in infection control. Prescription for doxycycline left in chart for patient to begin upon transfer to TCU Patient restarted on all home medications at this time. Thank you for all assistance in managing this patient, it is greatly appreciated. Code Visit Inpatient E&M: 95024 Init Hosp L2
[2019-04-26 17:16] LABS: Bedside Glucose 142 mg/dL (70-110)
[2019-04-26] MEDS: Clopidogrel Bisulfate 75 MG Tablet PO (21:26)
[2019-04-26] MEDS: Atorvastatin Calcium 40 MG Tablet PO (21:26)
[2019-04-26 22:45] LABS: Bedside Glucose 133 mg/dL (70-110)
[2019-04-27] VITALS (7 sets, daily range): BP systolic 130–180; BP diastolic 67–89; PULSE 63–76; RESP 16–18; TEMP 36.5–36.7; O2SAT 92–96
[2019-04-27] MEDS: HYDROmorphone 1 MG/ML Syringe IV (01:34)
--- NOTE | 2019-04-27 05:31 | CPS ---
Patient denied pap therapy at this time. patient was informed of pap therapy benefits but still denied pap therapy.
[2019-04-27] MEDS: Cefazolin 2 GM in 0.9% Normal Saline 100 ML IV ×2 (06:23→14:40)
[2019-04-27 06:55] LABS: Bedside Glucose 97 mg/dL (70-110)
[2019-04-27 07:00] LABS: Absolute Lymphocyte Count 2.83 X10^3/uL (0.83-4.51); Absolute Neutrophil Count 5.4 X10^3/uL (2.0-7.7); Basophil# 0.09 X10^3/uL; Eosinophil# 0.22 X10^3/uL; Eosinophils% 2.3 % (0-5); Hematocrit 30.8 % (37-47); Hemoglobin 9.3 g/dL (12.0-15.0); Lymphocyte # 2.83 X10^3/ul (4.0); Lymphocyte % 30.1 % (19-41); Mean Corp Hgb Conc 30.2 g/dL (32-36); Mean Corpuscular Hgb 25.8 pg (27.0-32.0); Mean Corpuscular Volume 85.3 fL (81-99); Mean Platelet Vol. 9.7 fl (6.2-12.0); Monocyte# 0.82 X10^3/uL; Monocyte% 8.7 % (0-10); NRBC Flagged by Analyzer 0 % (0-5); Neutrophil # 5.38 X10^3/uL (2.7-7.7); Neutrophil % 57.3 % (47-70); Platelet Count 293 K/mm3 (150-450); RBC Distribution Width CV 16.6 % (11.6-14.6); RBC Distribution Width SD 50.5 fl (35.1-43.9); Red Blood Count 3.61 M/mm3 (4.2-5.4); White Blood Count 9.4 K/mm3 (4.4-11.0)
[2019-04-27 07:15] LABS: Anion Gap 6 (5-15); BUN 19 mg/dL (7-18); BUN/Creat Ratio 21.6 RATIO (10-20); Calcium,Total 9.1 mg/dL (8.5-10.1); Chloride 105 mmol/L (98-107); Creatinine, Serum 0.88 mg/dL (0.55-1.02); EST Glomerular Filtration Rate 68 mL/min (>60); Est Glom Filt Rate - Afr Amer 83 mL/min (>60); Estimated Creatinine Clearance 50.41 ml/min; Glucose 90 mg/dL (74-106); Potassium 4.2 mmol/L (3.5-5.1); Sodium Level 139 mmol/L (136-145)
[2019-04-27] MEDS: DULoxetine Hcl 60 MG Capsule PO (08:10)
[2019-04-27] MEDS: Pantoprazole Sodium 40 MG Tablet PO (08:10)
[2019-04-27] MEDS: amLODIPine 5 MG Tablet PO (08:11)
[2019-04-27] MEDS: tiZANidine HCl 2 MG Tablet 4 MG PO (08:11)
[2019-04-27] MEDS: Ferrous Sulfate 325 MG Tablet PO ×2 (08:11→16:17)
[2019-04-27] MEDS: Folic Acid 1 MG Tablet PO (08:11)
[2019-04-27] MEDS: Tolterodine Tartrate 2 MG CAP.SA PO (08:11)
[2019-04-27] MEDS: Metoprolol Tartrate 25 MG Tablet PO ×2 (08:11→20:55)
[2019-04-27] MEDS: metFORMIN HCl 500 MG Tablet PO ×2 (08:11→16:18)
[2019-04-27] MEDS: Lisinopril 20 MG Tablet PO ×2 (08:11→20:56)
[2019-04-27] MEDS: APIXABAN 2.5 MG TABLET PO ×2 (08:12→20:56)
[2019-04-27] MEDS: ALPRAZolam 0.5 MG Tablet 1 MG PO ×2 (08:15→20:55)
[2019-04-27] MEDS: oxyCODONE 5 MG Tablet PO ×3 (08:16→23:49)
--- NOTE | 2019-04-27 09:14 | PN_ITS ---
Patient Problems: Active and Suspected Problems (Last Reviewed 04/24/19 @ 17:56 by Manny Sanchez DPM) Dislocation of right ankle joint (Acute) Closed right ankle fracture (Acute) Other acute postprocedural pain (Acute) Reason for Visit: Right ankle surgery after fracture. Acute hypoxic respiratory failure Vitals/I&O's: Vital Signs Temp Pulse Resp BP Pulse Ox 97.8 F 66 16 153/71 H 92 04/27/19 08:06 04/27/19 08:11 04/27/19 08:06 04/27/19 08:06 04/27/19 08:06 Oxygen Flow Rate (L/min) 3 Oxygen Delivery Method Room Air Weight: 268 lb 1.314 oz Body Mass Index (BMI) 49.1 Finger Stick Blood Glucose 144 Intake and Output for Last 24 Hours 04/25/19 04/26/19 04/27/19 23:59 23:59 23:59 Intake Total 3242.50 / 3242.50 1868.75 / 1868.75 110 / 110 Output Total 1250 / 1250 1250 / 1250 475 / 475 Balance 50 / 50 618.75 / 618.75 -365 / -365 General: Alert, Oriented x3, Cooperative HEENT: Atraumatic, PERRLA, EOMI, Normocephalic Neck: Supple, No JVD, Negative Carotid Bruits Lungs: Clear to auscultation, Normal air movement, No rhonchi, No wheeze, No rales Cardiovascular: Regular rate, Regular Rhythm, Normal S1, Normal S2, No murmurs Abdomen: Bowel Sounds Present, Soft, Non Tender Extremities: Capillary Refill Less than 3 Seconds, Edema Skin: No rashes, No breakdown Musculoskeletal: Arthritic Changes, Tenderness, - - Right ankle is on aspirin. Under Andrzej wrap bandage. Dressing is dry. Multiple, 3 knee surgeries on right side Neurological: Cranial nerves II-XII grossly intact Psych/Mental Status: Normal Affect, Appropriate Laboratory Results 04/26/19 11:10: Vitamin D 25-Hydroxy Pending 04/26/19 11:21: POC Glucose 140 H 04/26/19 16:59: POC Glucose 142 H 04/26/19 21:29: POC Glucose 133 H 04/27/19 06:02: WBC 9.4, RBC 3.61 L, Hgb 9.3 L, Hct 30.8 L, MCV 85.3, MCH 25.8 L , MCHC 30.2 L, RDW Std Deviation 50.5 H, RDW Coeff of Uriel 16.6 H, Plt Count 293, MPV 9.7, Immature Gran % (Auto) 0.600, Neut % (Auto) 57.3, Lymph % (Auto) 30.1, Rooks % (Auto) 8.7, Eos % (Auto) 2.3, Baso % (Auto) 1.0, Absolute Neuts (auto) 5.4, Absolute Lymphs (auto) 2.83, Nucleated RBC % 0 04/27/19 06:02: Sodium 139, Potassium 4.2, Chloride 105, Carbon Dioxide 28.0, Anion Gap 6, BUN 19 H, Creatinine 0.88, Estim Creat Clear Calc 50.41, Est GFR (MDRD) Af Amer 83, Est GFR (MDRD) Non-Af 68, BUN/Creatinine Ratio 21.6 H, Glucose 90, Calcium 9.1 04/27/19 06:29: POC Glucose 97 Current Medications Hydrocodone Bitart/Acetaminophen (Plessis 5mg-325mg) 1 - 2 tablet PO Q6H PRN PRN PRN Reason: Pain Score 1-5/10 Last Admin: 04/26/19 23:09 Dose: 2 tablet Documented by: Albuterol Sulfate (Ventolin Aerosols) 2.5 mg INHALATION Q2H PRN PRN PRN Reason: dyspnea, wheezing Alprazolam (Xanax) 1 mg PO BID [facility] Last Admin: 04/27/19 08:15 Dose: 1 mg Documented by: Amlodipine Besylate (Norvasc) 5 mg PO DAILY [facility] Last Admin: 04/27/19 08:11 Dose: 5 mg Documented by: Apixaban (Eliquis) 2.5 mg PO BID [facility] Last Admin: 04/27/19 08:12 Dose: 2.5 mg Documented by: Atorvastatin Calcium (Lipitor) 40 mg PO QHS [facility] Last Admin: 04/26/19 21:26 Dose: 40 mg Documented by: Clopidogrel Bisulfate (Plavix) 75 mg PO QHS [facility] Last Admin: 04/26/19 21:26 Dose: 75 mg Documented by: Duloxetine HCl (Cymbalta) 60 mg PO DAILY [facility] Last Admin: 04/27/19 08:10 Dose: 60 mg Documented by: Ergocalciferol (Vitamin D) 50,000 unit PO Q7D@1000 [facility] Last Admin: 04/26/19 14:14 Dose: 50,000 unit Documented by: [facility]ous [facility] ([facility]) [facility] Last Admin: 04/27/19 08:11 Dose: 325 mg Documented by: Folic Acid (Folic Acid) [facility] Last Admin: 04/27/19 08:11 Dose: 1 mg Documented by: Glucagon () 1 mg IM .X1 PRN PRN Reason: Hypoglycemia Hydralazine HCl (Apresoline Iv) 10 mg IV Q4H PRN PRN PRN Reason: SBP > 160 Last Admin: 04/25/19 01:14 Dose: 10 mg Documented by: Hydromorphone HCl (Dilaudid Inj) 1 mg IV Q4H PRN PRN PRN Reason: Pain Score 6-10/10 Last Admin: 04/27/19 01:34 Dose: 1 mg Documented by: Cefazolin Sodium 2 gm/ Sodium (Chloride) 110 mls @ 150 mls/hr IV Q8 [facility] Last Infusion: 04/27/19 07:11 Dose: Infused Documented by: Dextrose (Dextrose 10%-Water) 250 mls @ 999 mls/hr IV .Q16M PRN; Protocol PRN Reason: HYPOGLYCEMIA Sodium Chloride () 250 mls @ 15 mls/hr IV .[id number] PRN PRN Reason: Saline Flush Last Infusion: 04/26/19 17:05 Dose: 0 mls/hr Documented by: Sodium Chloride () 250 mls @ 15 mls/hr IV .[id number] PRN PRN Reason: Additional IVPB Infusion Iron Sucrose 200 mg/ Sodium (Chloride) 110 mls @ 220 mls/hr IV DAILY [facility] Stop: 04/27/19 10:29 Last Admin: 04/27/19 08:30 Dose: 220 mls/hr Documented by: Insulin Human Lispro (Humalog Kwikpen (Bkc)) 0 unit SC ACHS [facility]; Protocol Last Admin: 04/27/19 06:30 Dose: Not Given Documented by: Lisinopril (Zestril) 20 mg PO BID [facility] Last Admin: 04/27/19 08:11 Dose: 20 mg Documented by: Met[facility] ([facility]) [facility] Last Admin: 04/27/19 08:11 Dose: 500 mg Documented by: Metoprolol Tartrate (Lopressor (Beta Ana)) 25 mg PO BID [facility] Last Admin: 04/27/19 08:11 Dose: 25 mg Documented by: Morphine Sulfate () 2 mg IV Q4H PRN PRN PRN Reason: Pain Score 1-5/10 Ondansetron HCl (Zofran) 4 mg IV Q8H PRN PRN PRN Reason: Nausea Oxycodone HCl (Oxyir) 5 mg PO TID PRN PRN Reason: Pain Score 1-10/10 Last Admin: 04/27/19 08:16 Dose: 5 mg Documented by: Pantoprazole Sodium (Protonix) 40 mg PO DAILY [facility] Last Admin: 04/27/19 08:10 Dose: 40 mg Documented by: Polyethylene Glycol (Miralax) 17 gm PO DAILY PRN PRN Reason: Constipation Last Admin: 04/26/19 11:38 Dose: 17 gm Documented by: Prochlorperazine Maleate (Compazine Tablet) 5 - 10 mg PO Q6H PRN PRN PRN Reason: Nausea/vomiting Sodium Chloride () 10 - 40 ml IV UD PRN PRN Reason: SALINE FLUSH Last Admin: 04/26/19 21:25 Dose: 10 ml Documented by: Tizanidine HCl (Zanaflex) 4 mg PO BID [facility] Last Admin: 04/27/19 08:11 Dose: 4 mg Documented by: Tolterodine Tartrate (Detrol La) 2 mg PO DAILY [facility] Last Admin: 04/27/19 08:11 Dose: 2 mg Documented by: STROKE Vital Signs/Narrative: Vital Signs Temp Pulse Resp BP Pulse Ox 04/27/19 08:11 66 04/27/19 08:06 97.8 F 66 16 153/71 H 92 04/27/19 07:36 94 Medical Necessity - Tobacco Use Smoking Status: Never smoker Tobacco Use: Non-smoker Assessment/Plan All Active Problems (Last Reviewed 04/24/19 @ 17:56 by Manny Sanchez DPM) Dislocation of right ankle joint (Acute) Closed right ankle fracture (Acute) Other acute postprocedural pain (Acute) This is a 63 y/o female with history of morbid obesity, right knee multiple surgeries was admitted with right ankle fracture. She had right ankle arthroscopy with repair of chondral defect and ORIF of right lateral malleolar fracture. Patient was admitted in ICU after she was found desaturating, pulse ox 81% on 6 L of oxygen and was put on nonrebreather. After that she was started on BiPAP and hospitalist team was consulted and transferred to ICU. 1. Acute respiratory failure due to post op hypoxia; most probably exacerbated by anesthetic medication on baseline undiagnosed obstructive sleep apnea/obesity hypoventilation syndrome Patient is weaned off BiPAP. She did not require BiPAP in ICU overnight. Advised outpatient sleep study and PFT. Pulse ox currently 95% on room air and at night she was 94% on 3 L of oxygen. pulmonary function test done on 02/24/2016 which showed no evidence of large airways obstructive ventilatory defect; there was an isolated moderate reduction in diffusion capacity which may be indicated of an underlying pulmonary vascular disorder such as pulmonary hypertension. TTE was recommended. * She also has an overnight pulse oximetry done on 06/21/2017 which showed that she had 27 desaturation events over 3 minutes and 131 desaturation events less than 3 minutes duration. 2D echo is ordered * Breathing treatments with DuoNeb as needed. 04/26/2019: Echo 04/25/2019 was done Left ventricular systolic function is normal. The estimated ejection fraction is 70 %. Trivial mitral valve insufficiency. Trivial tricuspid valve insufficiency. Mild focal aortic valve calcification. Trivial aortic valve insufficiency. Right ventricular systolic pressure estimated to be 39 mmHg. No evidence for diastolic dysfunction. 2. Right ankle fracture * s/p ORIF by podiatry. Patient had ORIF done on 04/24/2019 * management as per podiatry. Pain management as per podiatry. Right ankle is getting . Waiting for precertification on Sunday for SNF placement. Possible TCU 3. History of CAD status post stents: On Plavix and lisinopril as well as metoprolol. Also on statin. 4. Type 2 diabetes mellitus: Hold metformin. Insulin sliding scale. Accu- Cheks ACHS 04/26/19: Blood sugars are controlled between 140 to 187 mg/dL. 5. Depression: on cymbalta 6. Morbid obesity: BMI is 48.3. This is complicating acute care, expected recovery and prognosis. 7. History of right-sided CVA: Stable. On Plavix and statin. 8. Hypertension: Blood pressure was markedly elevated in the 190s. On lisinopril and metoprolol. IV hydralazine PRN. Also on amlodipine. Currently, blood pressure is controlled 136/56 04/26: BP was 159/82. The most recent blood pressure is 120/80. 04/27: Blood pressure fluctuates but more on the higher side. BP 153/71, last one 138/83. Amlodipine dose increased from 5 mg to 10 mg daily. DVT prophylaxis: Started on Eliquis 2.5 mg twice daily Total time of the visit including total time spent in counseling or coordination of care, (more than 50% of the total time, spent in obtaining medical information from nurses and other ancillary care providers), discussed with patient and nursing staff, review of labs and imaging is 30 minutes Code Visit Inpatient E&M: 18030 Subs Hosp L2
--- NOTE | 2019-04-27 10:52 | PCM.PN.ORT ---
Patient Problems: Active and Suspected Problems (Last Reviewed 04/24/19 @ 17:56 by Manny Sanchez DPM) Dislocation of right ankle joint (Acute) Closed right ankle fracture (Acute) Other acute postprocedural pain (Acute) Subjective: Patient sitting in chair with right lower extremity not elevated above the level of the heart and slightly externally rotated upon exam. She denies chest pain, shortness of breath, dizziness, lightheadedness, nausea, vomiting or calf pain. No adverse events overnight. Pain is being controlled with oral and IV medications. She currently rates her pain as 7-8 on a scale of 10. She describes the pain as aching. Patient did express concern about pain and involuntary muscle spasms. Extensive discussion with patient regarding the transition from IV pain medications to all oral medications. Additionally, I discussed with the patient the need for elevation and icing of the right lower extremity. She is participating in physical therapy. Physical therapy has her stand and pivot with a walker. Objective: Vital signs stable and patient is afebrile. Dressing is clean, dry and intact to the right lower extremity with no evidence of strikethrough. Capillary refill is less than 3 seconds. Sensation is intact. No pain in right calf. - Physical Exam Vitals/I&O's: Vital Signs Temp Pulse Resp BP Pulse Ox 97.8 F 66 16 153/71 H 92 04/27/19 08:06 04/27/19 08:11 04/27/19 08:06 04/27/19 08:06 04/27/19 08:06 Oxygen Flow Rate (L/min) 3 Oxygen Delivery Method Room Air Weight: 121.6 kg Body Mass Index (BMI) 49.1 Finger Stick Blood Glucose 144 Intake and Output for Last 24 Hours 04/25/19 04/26/19 04/27/19 23:59 23:59 23:59 Intake Total 3242.50 / 3242.50 1868.75 / 1868.75 220 / 220 Output Total 1250 / 1250 1250 / 1250 475 / 475 Balance 1991.50 / 1991.50 618.75 / 618.75 -255 / -255 General: Alert, Oriented x3, Cooperative HEENT: Atraumatic Oral: Moist Mucosa Neck: Supple, No JVD Lungs: Clear to auscultation, Normal air movement Cardiovascular: Regular rate, Regular Rhythm Abdomen: Bowel Sounds Present, Soft, Non Tender, Non-Distended, Obese Extremities: Capillary Refill Less than 3 Seconds, No Calf Tenderness Skin: No rashes Musculoskeletal: Tenderness - to right lower extremity Neurological: Sensory exam intact to light touch and pain Psych/Mental Status: Normal Affect, Alert and oriented to time, place, person, mood and affect Laboratory Results 04/26/19 11:10: Vitamin D 25-Hydroxy Pending 04/26/19 11:21: POC Glucose 140 H 04/26/19 16:59: POC Glucose 142 H 04/26/19 21:29: POC Glucose 133 H 04/27/19 06:02: WBC 9.4, RBC 3.61 L, Hgb 9.3 L, Hct 30.8 L, MCV 85.3, MCH 25.8 L, MCHC 30.2 L, RDW Std Deviation 50.5 H, RDW Coeff of Uriel 16.6 H, Plt Count 293, MPV 9.7, Immature Gran % (Auto) 0.600, Neut % (Auto) 57.3, Lymph % (Auto) 30.1, [place] % (Auto) 8.7, Eos % (Auto) 2.3, Baso % (Auto) 1.0, Absolute Neuts (auto) 5.4, Absolute Lymphs (auto) 2.83, Nucleated RBC % 0 04/27/19 06:02: Sodium 139, Potassium 4.2, Chloride 105, Carbon Dioxide 28.0, Anion Gap 6, BUN 19 H, Creatinine 0.88, Estim Creat Clear Calc 50.41, Est GFR (MDRD) Af Amer 83, Est GFR (MDRD) Non-Af 68, BUN/Creatinine Ratio 21.6 H, Glucose 90, Calcium 9.1 04/27/19 06:29: POC Glucose 97 Current Medications Hydrocodone Bitart/Acetaminophen (Inez 5mg-325mg) 1 - 2 tablet PO Q6H PRN PRN PRN Reason: Pain Score 1-5/10 Last Admin: 04/26/19 23:09 Dose: 2 tablet Documented by: Albuterol Sulfate (Ventolin Aerosols) 2.5 mg INHALATION Q2H PRN PRN PRN Reason: dyspnea, wheezing Alprazolam (Xanax) 1 mg PO BID [facility] Last Admin: 04/27/19 08:15 Dose: 1 mg Documented by: Amlodipine Besylate (Norvasc) 10 mg PO DAILY [facility] Apixaban (Eliquis) 2.5 mg PO BID [facility] Last Admin: 04/27/19 08:12 Dose: 2.5 mg Documented by: Atorvastatin Calcium (Lipitor) 40 mg PO QHS [facility] Last Admin: 04/26/19 21:26 Dose: 40 mg Documented by: Clopidogrel Bisulfate (Plavix) 75 mg PO QHS [facility] Last Admin: 04/26/19 21:26 Dose: 75 mg Documented by: Duloxetine HCl (Cymbalta) 60 mg PO DAILY [facility] Last Admin: 04/27/19 08:10 Dose: 60 mg Documented by: Ergocalciferol (Vitamin D) 50,000 unit PO Q7D@1000 [facility] Last Admin: 04/26/19 14:14 Dose: 50,000 unit Documented by: Ferrous Sulf[facility] ([facility] Sulfate) [facility] Last Admin: 04/27/19 08:11 Dose: 325 mg Documented by: Folic Acid (Folic Acid) [facility] Last Admin: 04/27/19 08:11 Dose: 1 mg Documented by: Glucagon () 1 mg IM .X1 PRN PRN Reason: Hypoglycemia Hydralazine HCl (Apresoline Iv) 10 mg IV Q4H PRN PRN PRN Reason: SBP > 160 Last Admin: 04/25/19 01:14 Dose: 10 mg Documented by: Hydromorphone HCl (Dilaudid Inj) 1 mg IV Q4H PRN PRN PRN Reason: Pain Score 6-10/10 Last Admin: 04/27/19 01:34 Dose: 1 mg Documented by: Cefazolin Sodium 2 gm/ Sodium (Chloride) 110 mls @ 150 mls/hr IV Q8 [facility] Last Infusion: 04/27/19 07:11 Dose: Infused Documented by: Dextrose (Dextrose 10%-Water) 250 mls @ 999 mls/hr IV .Q16M PRN; Protocol PRN Reason: HYPOGLYCEMIA Sodium Chloride () 250 mls @ 15 mls/hr IV .[id number] PRN PRN Reason: Saline Flush Last Infusion: 04/26/19 17:05 Dose: 0 mls/hr Documented by: Sodium Chloride () 250 mls @ 15 mls/hr IV .[id number] PRN PRN Reason: Additional IVPB Infusion Insulin Human Lispro (Humalog Kwikpen (Bkc)) 0 unit SC ACHS [facility]; Protocol Last Admin: 04/27/19 06:30 Dose: Not Given Documented by: Lisinopril (Zestril) 20 mg PO BID [facility] Last Admin: 04/27/19 08:11 Dose: 20 mg Documented by: Metformin [facility] (Glucophage) [facility] Last Admin: 04/27/19 08:11 Dose: 500 mg Documented by: Metoprolol Tartrate (Lopressor (Beta Ana)) 25 mg PO BID [facility] Last Admin: 04/27/19 08:11 Dose: 25 mg Documented by: Morphine Sulfate () 2 mg IV Q4H PRN PRN PRN Reason: Pain Score 1-5/10 Ondansetron HCl (Zofran) 4 mg IV Q8H PRN PRN PRN Reason: Nausea Oxycodone HCl (Oxyir) 5 mg PO TID PRN PRN Reason: Pain Score 1-10/10 Last Admin: 04/27/19 08:16 Dose: 5 mg Documented by: Pantoprazole Sodium (Protonix) 40 mg PO DAILY [facility] Last Admin: 04/27/19 08:10 Dose: 40 mg Documented by: Polyethylene Glycol (Miralax) 17 gm PO DAILY PRN PRN Reason: Constipation Last Admin: 04/26/19 11:38 Dose: 17 gm Documented by: Prochlorperazine Maleate (Compazine Tablet) 5 - 10 mg PO Q6H PRN PRN PRN Reason: Nausea/vomiting Sodium Chloride () 10 - 40 ml IV UD PRN PRN Reason: SALINE FLUSH Last Admin: 04/26/19 21:25 Dose: 10 ml Documented by: Tizanidine HCl (Zanaflex) 4 mg PO BID [facility] Last Admin: 04/27/19 08:11 Dose: 4 mg Documented by: Tolterodine Tartrate (Detrol La) 2 mg PO DAILY [facility] Last Admin: 04/27/19 08:11 Dose: 2 mg Documented by: Medical Necessity - Tobacco Use Smoking Status: Never smoker Tobacco Use: Non-smoker Assessment/Plan All Active Problems (Last Reviewed 04/24/19 @ 17:56 by Manny Sanchez DPM) Dislocation of right ankle joint (Acute) Closed right ankle fracture (Acute) Other acute postprocedural pain (Acute) 1. Status postoperative day #3 right ankle open reduction internal fixation 2. Continue pain medications. We will transition from IV pain medications to all oral pain medications. Discussed with patient the need to transition to all oral pain medications prior to transferring to the TCU. 3. Ice and elevate right lower extremity above the level of the heart. Discussed with nurse and patient extensively. 4. DVT prophylaxis: Eliquis 2.5 mg twice daily per medicine 5. PT: Nonweightbearing on right lower extremity 6. H&H 9.3/30.8. Patient asymptomatic. 7. Encourage incentive spirometry. Patient is no longer requiring supplemental oxygen. 8. Continue postop medical management per medicine. Appreciate the assistance from the specialist and medicine team in caring for this patient. 9. The goal is to transfer the patient to the TCU on April 28 pending approval.
[2019-04-27] MEDS: HYDROcodone Bitartrate/Apap 5/325 Tablet PO ×2 (12:10→20:09)
[2019-04-27 12:20] LABS: Bedside Glucose 97 mg/dL (70-110)
[2019-04-27 16:31] LABS: Bedside Glucose 98 mg/dL (70-110)
[2019-04-27] MEDS: 0.9% Saline Lock 10 ML Syringe IV (18:00)
[2019-04-27] MEDS: cycloBENZAPRine HCl 10 MG Tablet PO (18:54)
[2019-04-27] MEDS: Clopidogrel Bisulfate 75 MG Tablet PO (20:55)
[2019-04-27] MEDS: Atorvastatin Calcium 40 MG Tablet PO (20:55)
[2019-04-27 21:11] LABS: Bedside Glucose 103 mg/dL (70-110)
[2019-04-28 02:05] VITALS: BP 140/77; PULSE 70; RESP 16; TEMP 36.7; O2SAT 93
[2019-04-28] MEDS: HYDROcodone Bitartrate/Apap 5/325 Tablet PO ×2 (02:14→08:23)
[2019-04-28] MEDS: cycloBENZAPRine HCl 10 MG Tablet PO (02:14)
[2019-04-28 06:45] LABS: Bedside Glucose 96 mg/dL (70-110)
[2019-04-28 08:05] VITALS: BP 179/70; PULSE 69; RESP 16; TEMP 36.6; O2SAT 93
[2019-04-28 08:18] VITALS: BP 179/70; PULSE 69
[2019-04-28] MEDS: 0.9% Saline Lock 10 ML Syringe IV (08:18)
[2019-04-28] MEDS: hydrALAZINE 20 MG/ML Vial 10 MG IV (08:18)
[2019-04-28] MEDS: Ferrous Sulfate 325 MG Tablet PO (08:19)
[2019-04-28] MEDS: metFORMIN HCl 500 MG Tablet PO (08:19)
[2019-04-28] MEDS: Folic Acid 1 MG Tablet PO (08:20)
[2019-04-28 08:21] VITALS: PULSE 69
[2019-04-28] MEDS: ALPRAZolam 0.5 MG Tablet 1 MG PO (08:21)
[2019-04-28] MEDS: Metoprolol Tartrate 25 MG Tablet PO (08:21)
[2019-04-28] MEDS: Tolterodine Tartrate 2 MG CAP.SA PO (08:21)
[2019-04-28] MEDS: Lisinopril 20 MG Tablet PO (08:21)
[2019-04-28] MEDS: DULoxetine Hcl 60 MG Capsule PO (08:22)
[2019-04-28] MEDS: Pantoprazole Sodium 40 MG Tablet PO (08:22)
[2019-04-28] MEDS: APIXABAN 2.5 MG TABLET PO (08:22)
[2019-04-28] MEDS: amLODIPine 10 MG Tablet PO (08:27)
[2019-04-28 08:34] VITALS: O2SAT 94
[2019-04-28 09:08] LABS: Vitamin D,25 Hydroxy 9.4 ng/mL (29.95-100.01)
[2019-04-28 11:36] LABS: Bedside Glucose 84 mg/dL (70-110)
--- NOTE | 2019-04-28 11:42 | PCM.DC.SUM ---
Discharge Date and Diagnosis - Problem List Patient Problems: Active and Suspected Problems (Last Reviewed 04/24/19 @ 17:56 by Manny Sanchez DPM) Dislocation of right ankle joint (Acute) Closed right ankle fracture (Acute) Other acute postprocedural pain (Acute) Date of Admission: 04/24/19 Date of Discharge: 04/28/19 - Primary Discharge Diagnosis Active and Suspected Problems (Last Reviewed 04/24/19 @ 17:56 by Manny Sanchez DPM) Dislocation of right ankle joint (Acute) Closed right ankle fracture (Acute) Other acute postprocedural pain (Acute) - Secondary Discharge Diagnosis Chronic Problems (Last Reviewed 04/24/19 @ 17:56 by Manny Sanchez DPM) Type 2 diabetes mellitus (Chronic) Hemoglobin A1c is 7.5% Presence of stent in coronary artery (Chronic ~02/27/12) 09/24/2009 bare-metal stent to RCA at [facility]; PTCA/LADARIUS to mid LAD 02/27/12 Essential hypertension (Chronic) Atherosclerotic heart disease of [place] coronary artery without angina pectoris (Chronic) Nocturnal hypoxemia (Chronic) Pulmonary hypertension (Chronic) Insomnia (Chronic) Morbid obesity (Chronic) Hyperlipidemia (Chronic) Hospital Course and Treatment Imaging Results: Ankle x-ray 3 views right ankle IMPRESSION: Satisfactory appearance distal fibular fracture status post ORIF. Question of widening of the ankle joint. Deformity of the articular surface of the talar dome and system with OCD. Electronically Signed: Olvin Soliman MD at 15:58 EST , Service support , Echo 2D cardiogram Interpretation Summary The study was technically difficult. Contrast injection was performed. Left ventricular systolic function is normal. The estimated ejection fraction is 70 %. Trivial mitral valve insufficiency. Trivial tricuspid valve insufficiency. Mild focal aortic valve calcification. Trivial aortic valve insufficiency. Right ventricular systolic pressure estimated to be 39 mmHg. No evidence for diastolic dysfunction. Ordering Physician: Brian Ribeiro Referring Physician: Manny Sanchez Performed By: Tala Florian, RDCS, RVT Dr. Guerrier and Dr. Nguyễn, hospitalists Operations: - - Right ankle open reduction with internal fixation Procedures: 2-D Echocardiogram Summary of Care Provided: [] This is a 63 y/o female with history of morbid obesity, right knee multiple surgeries was admitted after right ankle fracture on 04/24/2019 for acute post-procedural pain and acute respiratory distress. She had right ankle arthroscopy with repair of chondral defect and ORIF of right lateral malleolar fracture. Patient was admitted in ICU after she was found desaturating, pulse ox 81% on 6 L of oxygen and was put on nonrebreather. After that she was started on BiPAP and hospitalist team was consulted and transferred to ICU. This was most probably exacerbated by anesthetic medication on baseline undiagnosed obstructive sleep apnea/obesity hypoventilation syndrome Patient was weaned off BiPAP. She did not require BiPAP in ICU overnight. Advised outpatient sleep study and PFT. Pulse ox currently 95% on room air and at night she was 94% on 3 L of oxygen. She was transferred to the med/surg unit. A 2D Echocardiogram was performed on 04/25/2019. She has a history of CAD status post stents: On Plavix and lisinopril as well as metoprolol. Also on statin. Her Type 2 diabetes mellitus has been controlled with blood sugars between 140 to 187 mg/dL. The morbid obesity: BMI is 48.3. This is complicating acute care, expected recovery and prognosis. She was educated on proper nutrition and weight loss. Her blood pressure was markedly elevated in the 190s postoepratively. On lisinopril and metoprolol. Currently, blood pressure is controlled 136/56. Given amlodipine for control. For DVT prophylaxis, she was started on Eliquis 2.5 mg twice daily. Due to her inability to perform ADL on her own because of the right ankle surgery, multiple surgical interventions on her right knee, and multiple comorbidities, it was determined that a transfer to the TCU would help her in her transition. Patient Problems: Active and Suspected Problems (Last Reviewed 04/24/19 @ 17:56 by Manny Sanchez DPM) Dislocation of right ankle joint (Acute) Closed right ankle fracture (Acute) Other acute postprocedural pain (Acute) Subjective: Patient seen at bedside resting comfortably. Patient admits to improved pain in her right ankle. Patient is states that the pain is now controlled with oral pain medications. Patient denies any other acute complaints at this time. Patient states that she is breathing normally and tolerating activity well. Currently, patient denies fever, chills, nausea, vomiting, shortness of breath, chest pain. Patient denies right calf pain. Objective: Right lower extremity; Dressing is clean, dry, intact to the right lower extremity with no evidence of strikethrough No pain upon palpation compression of the right calf. Capillary fill time is less than 3 seconds all digits of the right foot Light touch sensation is intact to the digits of the right foot. - Physical Exam Vitals/I&O's: Vital Signs Temp Pulse Resp BP Pulse Ox 97.9 F 69 16 179/70 H 94 04/28/19 08:05 04/28/19 08:21 04/28/19 08:05 04/28/19 08:18 04/28/19 08:34 Oxygen Flow Rate (L/min) 3 Oxygen Delivery Method Room Air Weight: 121.6 kg Body Mass Index (BMI) 49.1 Finger Stick Blood Glucose 144 Intake and Output for Last 24 Hours 04/26/19 04/27/19 04/28/19 23:59 23:59 23:59 Intake Total 1868.75 / 1868.75 1050 / 1050 Output Total 1250 / 1250 475 / 475 Balance 618.75 / 618.75 575 / 575 General: Alert, Oriented x3, Cooperative, No apparent distress HEENT: Atraumatic, PERRLA Oral: Moist Mucosa Neck: Supple, No JVD Lungs: Clear to auscultation, Normal air movement Cardiovascular: Regular rate, Regular Rhythm, Normal S1, Normal S2 Abdomen: Bowel Sounds Present, Soft, Non Tender, Non-Distended, Obese Extremities: Capillary Refill Less than 3 Seconds, No Calf Tenderness Musculoskeletal: Tenderness - Upon palpation of right ankle Neurological: Sensory exam intact to light touch and pain Psych/Mental Status: Alert and oriented to time, place, person, mood and affect Laboratory Results 04/26/19 11:10: Vitamin D 25-Hydroxy 9.4 L 04/27/19 12:09: POC Glucose 97 04/27/19 16:22: POC Glucose 98 04/27/19 21:02: POC Glucose 103 04/28/19 06:33: POC Glucose 96 04/28/19 11:33: POC Glucose 84 Current Medications Hydrocodone Bitart/Acetaminophen ([place] 5mg-325mg) 1 - 2 tablet PO Q6H PRN PRN PRN Reason: Pain Score 1-5/10 Last Admin: 04/28/19 08:23 Dose: 2 tablet Documented by: Albuterol Sulfate (Ventolin Aerosols) 2.5 mg INHALATION Q2H PRN PRN PRN Reason: dyspnea, wheezing Alprazolam (Xanax) 1 mg PO BID [facility] Last Admin: 04/28/19 08:21 Dose: 1 mg Documented by: Amlodipine Besylate (Norvasc) 10 mg PO DAILY [facility] Last Admin: 04/28/19 08:27 Dose: 10 mg Documented by: Apixaban (Eliquis) 2.5 mg PO BID [facility] Last Admin: 04/28/19 08:22 Dose: 2.5 mg Documented by: Atorvastatin Calcium (Lipitor) 40 mg PO QHS [facility] Last Admin: 04/27/19 20:55 Dose: 40 mg Documented by: Clopidogrel Bisulfate (Plavix) 75 mg PO QHS [facility] Last Admin: 04/27/19 20:55 Dose: 75 mg Documented by: Cyclobenzaprine HCl (Flexeril) 10 mg PO TID PRN PRN PRN Reason: muscle spasms Last Admin: 04/28/19 02:14 Dose: 10 mg Documented by: Duloxetine HCl (Cymbalta) 60 mg PO DAILY [facility] Last Admin: 04/28/19 08:22 Dose: 60 mg Documented by: Ergocalciferol (Vitamin D) 50,000 unit PO Q7D@1000 [facility] Last Admin: 04/26/19 14:14 Dose: 50,000 unit Documented by: [facility]ous Sulf[facility] ([facility]) [facility] Last Admin: 04/28/19 08:19 Dose: 325 mg Documented by: Folic Acid (F[facility] Acid) [facility] Last Admin: 04/28/19 08:20 Dose: 1 mg Documented by: Glucagon () 1 mg IM .X1 PRN PRN Reason: Hypoglycemia Hydralazine HCl (Apresoline Iv) 10 mg IV Q4H PRN PRN PRN Reason: SBP > 160 Last Admin: 04/28/19 08:18 Dose: 10 mg Documented by: Dextrose (Dextrose 10%-Water) 250 mls @ 999 mls/hr IV .Q16M PRN; Protocol PRN Reason: HYPOGLYCEMIA Sodium Chloride () 250 mls @ 15 mls/hr IV .[id number] PRN PRN Reason: Saline Flush Last Infusion: 04/26/19 17:05 Dose: 0 mls/hr Documented by: Sodium Chloride () 250 mls @ 15 mls/hr IV .[id number] PRN PRN Reason: Additional IVPB Infusion Insulin Human Lispro (Humalog Kwikpen (Bkc)) 0 unit SC ACHS [facility]; Protocol Last Admin: 04/28/19 06:51 Dose: Not Given Documented by: Lisinopril (Zestril) 20 mg PO BID [facility] Last Admin: 04/28/19 08:21 Dose: 20 mg Documented by: Metformin [facility] ([facility]ophage) [facility] Last Admin: 04/28/19 08:19 Dose: 500 mg Documented by: Metoprolol Tartrate (Lopressor (Beta Ana)) 25 mg PO BID [facility] Last Admin: 04/28/19 08:21 Dose: 25 mg Documented by: Morphine Sulfate () 2 mg IV Q4H PRN PRN PRN Reason: Pain Score 1-5/10 Ondansetron HCl (Zofran) 4 mg IV Q8H PRN PRN PRN Reason: Nausea Oxycodone HCl (Oxyir) 5 mg PO TID PRN PRN Reason: Pain Score 1-10/10 Last Admin: 04/27/19 23:49 Dose: 5 mg Documented by: Pantoprazole Sodium (Protonix) 40 mg PO DAILY [facility] Last Admin: 04/28/19 08:22 Dose: 40 mg Documented by: Polyethylene Glycol (Miralax) 17 gm PO DAILY PRN PRN Reason: Constipation Last Admin: 04/26/19 11:38 Dose: 17 gm Documented by: Prochlorperazine Maleate (Compazine Tablet) 5 - 10 mg PO Q6H PRN PRN PRN Reason: Nausea/vomiting Sodium Chloride () 10 - 40 ml IV UD PRN PRN Reason: SALINE FLUSH Last Admin: 04/28/19 08:18 Dose: 10 ml Documented by: Tolterodine Tartrate (Detrol La) 2 mg PO DAILY [facility] Last Admin: 04/28/19 08:21 Dose: 2 mg Documented by: Discharge Diet: 1800 Calorie Control Diet Discharge Activity: May Not Drive, May Not Shower, Use Walker, Use Crutches Weight Bearing Status: No weight bearing - to right leg, use assistive devices Keep extremity elevated above heart level: Right Leg - at all times when not walking Call your doctor if your incision/area has: Increased Pain/ Swelling Call your doctor if you observe: Fever of 101 or Higher, Shortness of breath, Chest pain, Increased palpitations (irregular heartbeat), Calf discomfort, Uncontrolled pain Cleanse incision/area with: Keep Dressing Clean & Dry Additional Dressing/Incision Instructions:: Keep dressing clean, dry, intact. Do not get dressing wet. Elevate right foot above level of heart at all times when not walking. Ice around right knee 20 minutes on, 20 minutes off every hour while awake as tolerated. Take medications as prescribed. No walking/standing on right foot. Use crutches or walker for assistance. Home Medications: Medications to take at Discharge RX: Clopidogrel Bisulfate [Plavix] 75 mg PO QHS 08/25/15 RX: Atorvastatin Calcium [Lipitor] 40 mg PO QHS 01/27/16 RX: Duloxetine HCl 60 mg PO DAILY 07/05/17 ranitidine HCl 150 mg tablet 150 mg PO QDAY 10/31/17 metoprolol tartrate 25 mg tablet 25 mg PO BID #180 tab 09/16/18 RX: Tizanidine HCl [Zanaflex] 4 mg PO BID 10/15/18 RX: Amlodipine Besylate [Norvasc] 5 mg PO QDAY 10/31/18 RX: Folic Acid 1 mg PO DAILY 12/13/18 RX: Metformin HCl 500 mg PO BIDCM 12/13/18 lisinopril 20 mg tablet 20 mg PO BID #180 tab 12/24/18 RX: Ferrous Sulfate [Iron] 325 mg PO BID 04/23/19 RX: Polyethylene Glycol 3350 [Miralax] 17 gm PO DAILY PRN 04/23/19 RX: Trospium Chloride [Sanctura] 20 mg PO BID 04/23/19 RX: ALPRAZolam [Xanax] 1 mg PO BID #6 tab 04/25/19 RX: Apixaban [Eliquis] 2.5 mg PO BID #60 tab 04/25/19 Amlodipine [Norvasc] 10 mg PO DAILY #30 tab 04/28/19 Following Prescrptions Were Given to Patient: RX: Apixaban [Eliquis] 2.5 mg PO BID #60 tab Amlodipine [Norvasc] 10 mg PO DAILY #30 tab Prescription Printed RX: ALPRAZolam [Xanax] 1 mg PO BID #6 tab Prescription Printed Primary Care Physician: Sudheer Lion MD [Primary Care Provider] - Please Follow Up With: Manny Sanchez DPM When: on 05/02/19, at 10:45 am in [place] Office Disposition: [facility] facility Minutes spent on discharge:: 30 Patient Condition:: Good Medical Necessity - Tobacco Use Smoking Status: Never smoker Tobacco Use: Non-smoker Meaningful Use Info Meaningful Use Diagnoses (Choose all that apply): Ischemic CVA - CVA Therapy Assessed for PT,OT and/or ST?: Yes - Ischemic Stroke Antithrombotic order at d/c?: Yes Dx of Atrial fib/flutter?: No Statins at discharge?: Yes Primary Dx Acute Ischemic CVA?: No IV tPA ordered during stay?: No Reason IV t-PA not ordered: Treatment not Indicated Code Visit Inpatient E&M: 69600 Disch Hosp
[2019-04-28 14:10] VITALS: BP 156/62; PULSE 68; RESP 16; TEMP 36.6; O2SAT 93
--- NOTE | 2019-04-28 14:14 | PN_ITS ---
Patient Problems: Active and Suspected Problems (Last Reviewed 04/24/19 @ 17:56 by Manny Sanchez DPM) Dislocation of right ankle joint (Acute) Closed right ankle fracture (Acute) Other acute postprocedural pain (Acute) Subjective: Chief complaint: Follow-up after consultation for postoperative hypoxia and postoperative medical management. Patient seen and examined. No acute events overnight. Today, patient feels better, no complaints. She is barely having right ankle pain, pain is manageable. Denied any other complaints. Her vital signs are stable. - Physical Exam Vitals/I&O's: Vital Signs Temp Pulse Resp BP Pulse Ox 97.9 F 69 16 179/70 H 94 04/28/19 08:05 04/28/19 08:21 04/28/19 08:05 04/28/19 08:18 04/28/19 08:34 Oxygen Flow Rate (L/min) 3 Oxygen Delivery Method Room Air Weight: 268 lb 1.314 oz Body Mass Index (BMI) 49.1 Finger Stick Blood Glucose 144 Intake and Output for Last 24 Hours 04/26/19 04/27/19 04/28/19 23:59 23:59 23:59 Intake Total 1868.75 / 1868.75 1050 / 1050 Output Total 1250 / 1250 475 / 475 Balance 618.75 / 618.75 575 / 575 General: Alert, Oriented x3, Cooperative, No apparent distress HEENT: Atraumatic, PERRLA, EOMI, Normocephalic Oral: Moist Mucosa, No Gingival or Mucosal Lesions/ Ulcerations Neck: Supple, No JVD, Negative Carotid Bruits, Trachea Midline, Thyroid Normal Size and Texture Lungs: Clear to auscultation, No rhonchi, No wheeze, No rales, Diminished Cardiovascular: Regular rate, Regular Rhythm, Normal S1, Normal S2, PMI Normal Abdomen: Bowel Sounds Present, Soft, Non Tender, Non-Distended, No Hepato- splenomegaly, Obese Extremities: No clubbing, No cyanosis, No edema Skin: No rashes, No breakdown Lymphatic: No Cervical, Supraclavicular, or Inguinal Adenopathy Neurological: Cranial nerves II-XII grossly intact, Neuro grossly intact Psych/Mental Status: Normal Affect, Appropriate, Alert and oriented to time, place, person, mood and affect Laboratory Results 04/26/19 11:10: Vitamin D 25-Hydroxy 9.4 L 04/27/19 16:22: POC Glucose 98 04/27/19 21:02: POC Glucose 103 04/28/19 06:33: POC Glucose 96 04/28/19 11:33: POC Glucose 84 Current Medications Hydrocodone Bitart/Acetaminophen (Plaza 5mg-325mg) 1 - 2 tablet PO Q6H PRN PRN PRN Reason: Pain Score 1-5/10 Last Admin: 04/28/19 08:23 Dose: 2 tablet Documented by: Albuterol Sulfate (Ventolin Aerosols) 2.5 mg INHALATION Q2H PRN PRN PRN Reason: dyspnea, wheezing Alprazolam (Xanax) 1 mg PO BID [facility] Last Admin: 04/28/19 08:21 Dose: 1 mg Documented by: Amlodipine Besylate (Norvasc) 10 mg PO DAILY [facility] Last Admin: 04/28/19 08:27 Dose: 10 mg Documented by: Apixaban (Eliquis) 2.5 mg PO BID [facility] Last Admin: 04/28/19 08:22 Dose: 2.5 mg Documented by: [facility]atin [facility]) [facility] Admin: 04/27/19 20:55 Dose: 40 mg Documented by: Clopidogrel [facility]ate ([facility]avix) [facility] Last Admin: 04/27/19 20:55 Dose: 75 mg Documented by: Cyclobenzaprine HCl (Flexeril) 10 mg PO TID PRN PRN PRN Reason: muscle spasms Last Admin: 04/28/19 02:14 Dose: 10 mg Documented by: Duloxetine HCl (Cymbalta) 60 mg PO DAILY [facility] Last Admin: 04/28/19 08:22 Dose: 60 mg Documented by: Ergocalciferol (Vitamin D) 50,000 unit PO Q7D@1000 [facility] Last Admin: 04/26/19 14:14 Dose: 50,000 unit Documented by: Ferrous Sulf[facility] ([facility] Sulfate) [facility] Last Admin: 04/28/19 08:19 Dose: 325 mg Documented by: Folic Acid (Folic Acid) [facility] Last Admin: 04/28/19 08:20 Dose: 1 mg Documented by: Glucagon () 1 mg IM .X1 PRN PRN Reason: Hypoglycemia Hydralazine HCl (Apresoline Iv) 10 mg IV Q4H PRN PRN PRN Reason: SBP > 160 Last Admin: 04/28/19 08:18 Dose: 10 mg Documented by: Dextrose (Dextrose 10%-Water) 250 mls @ 999 mls/hr IV .Q16M PRN; Protocol PRN Reason: HYPOGLYCEMIA Sodium Chloride () 250 mls @ 15 mls/hr IV .[id number] PRN PRN Reason: Saline Flush Last Infusion: 04/26/19 17:05 Dose: 0 mls/hr Documented by: Sodium Chloride () 250 mls @ 15 mls/hr IV .[id number] PRN PRN Reason: Additional IVPB Infusion Insulin Human Lispro (Humalog Kwikpen (Bkc)) 0 unit [facility]; Protocol Last Admin: 04/28/19 12:22 Dose: Not Given Documented by: Lisinopril (Zestril) 20 mg PO BID [facility] Last Admin: 04/28/19 08:21 Dose: 20 mg Documented by: Metformin [facility] (Glucophage) [facility] Last Admin: 04/28/19 08:19 Dose: 500 mg Documented by: Metoprolol Tartrate (Lopressor (Beta Ana)) 25 mg PO BID [facility] Last Admin: 04/28/19 08:21 Dose: 25 mg Documented by: Morphine Sulfate () 2 mg IV Q4H PRN PRN PRN Reason: Pain Score 1-5/10 Ondansetron HCl (Zofran) 4 mg IV Q8H PRN PRN PRN Reason: Nausea Oxycodone HCl (Oxyir) 5 mg PO TID PRN PRN Reason: Pain Score 1-10/10 Last Admin: 04/27/19 23:49 Dose: 5 mg Documented by: Pantoprazole Sodium (Protonix) 40 mg PO DAILY [facility] Last Admin: 04/28/19 08:22 Dose: 40 mg Documented by: Polyethylene Glycol (Miralax) 17 gm PO DAILY PRN PRN Reason: Constipation Last Admin: 04/26/19 11:38 Dose: 17 gm Documented by: Prochlorperazine Maleate (Compazine Tablet) 5 - 10 mg PO Q6H PRN PRN PRN Reason: Nausea/vomiting Sodium Chloride () 10 - 40 ml IV UD PRN PRN Reason: SALINE FLUSH Last Admin: 04/28/19 08:18 Dose: 10 ml Documented by: Tolterodine Tartrate (Detrol La) 2 mg PO DAILY [facility] Last Admin: 04/28/19 08:21 Dose: 2 mg Documented by: Medical Necessity - Tobacco Use Smoking Status: Never smoker Tobacco Use: Non-smoker Assessment/Plan All Active Problems (Last Reviewed 04/24/19 @ 17:56 by Manny Sanchez DPM) Dislocation of right ankle joint (Acute) Closed right ankle fracture (Acute) Other acute postprocedural pain (Acute) This is a 63 years old female patient underwent right ankle joint arthroscopy with repair of osteochondral defect, open reduction and internal fixation of right lateral malleolus fracture and postoperatively, she developed acute respiratory failure with hypoxia. #1 postoperative acute hypoxic respiratory failure/hypoxia: Attributed to anesthesia side effects in addition to undiagnosed suspected sleep apnea and ob esity hypoventilation syndrome. Initially, patient required BiPAP. Today, respiratory status stable, pulse ox is maintained on room air. 2D echocardiogram revealed ejection fraction 70%, RVSP of 39, other findings reviewed. Routine blood work from yesterday reviewed, remarkable for anemia with stable hemoglobin, otherwise normal. Respiratory status stabilized and patient is stable from medical standpoint to be discharged home. Recommend sleep study as outpatient. #2 status post right ankle joint arthroscopy/repair of osteochondral defect/ORIF of right lateral malleolus fracture: Postoperative day 4. Pain is well managed. She is on Plaza PRN for pain as well as IV morphine PRN. Her vital signs are stable. Podiatry medicine is on the case. #3 CAD status post stents: Stable, continue Eliquis, Plavix, statins, lisinopril and metoprolol. #4 type 2 diabetes mellitus: Blood sugar has been stable, continue metformin and sliding scale. #5 history of stroke: Stable, continue Eliquis, Plavix and statins. #6 hypertension: Blood pressure has been elevated but start to get better. Norvasc increased to 10 mg p.o. daily. Plan to continue other treatments including lisinopril, metformin and IV hydralazine PRN. #7 depression: Continue Cymbalta. #8 DVT prophylaxis: Continue Eliquis. This note was generated with [employer] software. It may contain incorrect words, spelling, and punctuation that were not noted in checking the note before signing. Code Visit Inpatient E&M: 01039 Subs Hosp L2
--- NOTE | 2019-04-28 14:20 | CASEMGMT ---
Social Work Note Pt is medically cleared for discharge today. SW updated Shelly with TCU that pt will be discharged today. Plan: TCU today [facility] TIP MENDER, WELL TENDER
== END 2019-04-28 15:35 | disposition skilled nursing facility (03) | DRG 982 ==
LOC: ACINP 18:27 → MS3 18:30 → ICU 04-25 07:01 → MS3 04-25 10:38 → ICU 04-25 15:41 → MS3 04-25 15:42
PROVIDERS: Internal Medicine; Student in an Organized Health Care Education/Training Program; Admitting Provider Podiatrist Foot & Ankle Surgery; Family Provider Family Medicine; PCP Family Medicine; Referring Provider Podiatrist Foot & Ankle Surgery; Visit Provider Podiatrist Foot & Ankle Surgery
PROC: 0QSJ04Z Reposition Right Fibula with Internal Fixation Device, Open Approach (ICD-10-PCS; principal; 2019-04-24 12:00)
DX: J96.01 Acute respiratory failure with hypoxia (principal); Z68.42 Body mass index [BMI] 45.0-49.9, adult; E66.2 Morbid (severe) obesity with alveolar hypoventilation; S82.61XA Displaced fracture of lateral malleolus of right fibula, initial encounter for closed fracture; S93.04XA Dislocation of right ankle joint, initial encounter; W01.0XXA Fall on same level from slipping, tripping and stumbling without subsequent striking against object, initial encounter; I25.10 Atherosclerotic heart disease of native coronary artery without angina pectoris; Z95.5 Presence of coronary angioplasty implant and graft; E11.9 Type 2 diabetes mellitus without complications; Z79.84 Long term (current) use of oral hypoglycemic drugs; F32.9 Major depressive disorder, single episode, unspecified; I10 Essential (primary) hypertension; Z96.651 Presence of right artificial knee joint; I27.20 Pulmonary hypertension, unspecified; E78.5 Hyperlipidemia, unspecified; Z86.73 Personal history of transient ischemic attack (TIA), and cerebral infarction without residual deficits
CPT/HCPCS: 36415; 73610; 76000; 80048; 82306; 82962; 85025; 88304; 88311; 93306; 94002; 97110; 97163; 97166; 97530; 97535; C1713; J1756; J7050; J7120; Q9957; A4216; C8929; J2405

== ENCOUNTER 2019-04-28 15:50 | Inpatient (IN) | payer MEDICARE, OTHER, SELFPAY ==
[2019-04-24 20:11] VITALS: BMI 49.1
[2019-04-28 16:03] VITALS: BP 167/81; PULSE 77; RESP 16; TEMP 37; O2SAT 94; BMI 48.3
[2019-04-28 17:36] LABS: Bedside Glucose 110 mg/dL (70-110)
[2019-04-28] MEDS: oxyCODONE 5 MG Tablet PO (17:47)
[2019-04-28] MEDS: Doxycycline 100 MG CAPSULE PO (17:49)
[2019-04-28] MEDS: Ferrous Sulfate 325 MG Tablet PO (17:49)
[2019-04-28] MEDS: tiZANidine HCl 2 MG Tablet 4 MG PO (17:49)
[2019-04-28 17:50] VITALS: BP 167/81; PULSE 75
[2019-04-28] MEDS: metFORMIN HCl 500 MG Tablet PO (17:50)
[2019-04-28] MEDS: Metoprolol Tartrate 25 MG Tablet PO (17:50)
[2019-04-28] MEDS: Lisinopril 20 MG Tablet PO (17:51)
[2019-04-28] MEDS: APIXABAN 2.5 MG TABLET PO (17:51)
[2019-04-28] MEDS: ALPRAZolam 0.5 MG Tablet 1 MG PO (17:54)
[2019-04-28 18:42] VITALS: PULSE 75; RESP 18; O2SAT 94
--- NOTE | 2019-04-28 20:18 | NURSING ---
Spouse requesting zanaflex TID. Pt resting quietly in bed, eye closed, no distress noted. Pt informed she received Zanaflex, Xanax and Oxycodone approx. 1800. Pt stated, Oh, I only had it two hours ago. Spouse continued to informed RN pt needs Zanaflex three times a day, two times is not enough. RN attempted to elevate RLE and apply ice. Spouse informed RN that elevation dose not work because once pt has a spasm her leg comes up off the pillow. RN informed spouse and pt non-pharmacological along with pharmacological interventions can both aide in pain reduction. Much TLC, 1:1, education along with repositioning attempted. Spouse shock his head at RN. Pt informed RN she has a steady pain 9/10 to RLE, pt unable to further describe pain. Dr Almaraz notified, N.O. received. Will continue to monitor and asses.
--- NOTE | 2019-04-28 20:35 | HP.PCM_ITS ---
Problem List (1) Debility Status: Acute (2) GERD (gastroesophageal reflux disease) Status: Chronic (3) Overactive bladder Status: Chronic (4) Diabetes mellitus Status: Chronic (5) Coronary artery disease Status: Chronic (6) Hypertension Status: Chronic (7) Body mass index (BMI) 45.0-49.9, adult Status: Chronic (8) Stroke Status: Chronic (9) Right hemiparesis Status: Chronic (10) Dislocation of right ankle joint Status: Acute Qualifiers: (11) Closed right ankle fracture Status: Acute Qualifiers: (12) Nocturnal hypoxemia Status: Chronic (13) Pulmonary hypertension Status: Chronic (14) Insomnia Status: Chronic (15) Hyperlipidemia Status: Chronic Qualifiers: History of Present Illness Date of Admission: 04/28/19 Chief Complaint: Here for rehabilitation, strengthening, prior to discharge home with . The patient is a 63 year old Female with below past medical history with followin04/09/2019 Slipped and fell, right ankle deformed. Right ankle dislocation, fracture splinted. 04/24/2019 Dr. Manny Sanchez performed right ankle joint arthroplasty with repair of osteochondral defect. ORIF of right lateral malleolus fracture. 04/24/2019 BiPAP for acute respiratory failure. 04/25/2019 BiPAP overnight. PFT, sleep study as outpatient. 04/25/2019 Echo Left ventricular systolic function normal. EF 70%. Right ventricular systolic pressure 39mm HG. 04/25/2019 PT/OT. Right lower extremity weight bearing intolerable. 04/26/2019 Insulin sliding scale for Diabetes Mellitus. Blood pressure elevated, IV Hydralazine as needed for elevated blood pressure. Eliquis 2.5MG twice daily for DVT prophylaxis. Off supplemental oxygen. 04/28/2019 Admit to TCU with debility, here for rehabilitation, strengthening, prior to discharge home with . Past Medical History Past Medical History (Chronic Problems): Chronic Problems (Last Reviewed 04/24/19 @ 17:56 by Manny Sanchez DPM) GERD (gastroesophageal reflux disease) (Chronic) Overactive bladder (Chronic) Diabetes mellitus (Chronic) Coronary artery disease (Chronic) Hypertension (Chronic) Body mass index (BMI) 45.0-49.9, adult (Chronic) Stroke (Chronic) Right hemiparesis (Chronic) Type 2 diabetes mellitus (Chronic) Hemoglobin A1c is 7.5% Presence of stent in coronary artery (Chronic ~11/20/12) 09/24/2009 bare-metal stent to RCA at [facility]; PTCA/LADARIUS to mid LAD 02/27/12 Essential hypertension (Chronic) Atherosclerotic heart disease of [place] coronary artery without angina pectoris (Chronic) Nocturnal hypoxemia (Chronic) Pulmonary hypertension (Chronic) Insomnia (Chronic) Morbid obesity (Chronic) Hyperlipidemia (Chronic) Medical History: Medical History (Last Reviewed 04/24/19 @ 17:56 by Manny Sanchez DPM) Presence of stent in coronary artery (Chronic) Onset Date: ~02/27/12 Z95.5 09/24/2009 bare-metal stent to RCA at [facility]; PTCA/LADARIUS to mid LAD 02/27/12 Essential hypertension (Chronic) I10 Atherosclerotic heart disease of [place] coronary artery without angina pectoris (Chronic) I25.10 Nocturnal hypoxemia (Chronic) G47.34 Pulmonary hypertension (Chronic) I27.20 Insomnia (Chronic) G47.00 Morbid obesity (Chronic) E66.01 Hyperlipidemia (Chronic) E78.5 Anxiety F41.9 CVA (cerebral vascular accident) I63.9 2005 right sided Depression F32.9 Heart disease I51.9 Right sided cerebral infarction I63.9 Suicide attempt by drug ingestion T50.902A Allergies ciprofloxacin [From Cipro] Allergy (Verified 04/24/19 11:17) Unknown escitalopram oxalate [From Lexapro] Allergy (Verified 04/24/19 11:17) Unknown heparin Allergy (Verified 04/24/19 11:17) Unknown mupirocin [From Bactroban] Allergy (Verified 04/24/19 11:17) Unknown trazodone Allergy (Verified 04/24/19 11:17) Unknown adhesive tape Adverse Reaction (Verified 04/24/19 11:17) Other Home Medications: Ambulatory Orders Medication Instructions Recorded Clopidogrel Bisulfate [Plavix] 75 mg PO QHS 08/25/15 Atorvastatin Calcium [Lipitor] 40 mg PO QHS 01/27/16 Duloxetine HCl 60 mg PO DAILY 07/05/17 ranitidine HCl 150 mg tablet 150 mg PO QDAY 10/31/17 metoprolol tartrate 25 mg tablet 25 mg PO BID #180 tab 09/16/18 Tizanidine HCl [Zanaflex] 4 mg PO BID 10/15/18 Amlodipine Besylate [Norvasc] 5 mg PO QDAY 10/31/18 Folic Acid 1 mg PO DAILY 12/13/18 Metformin HCl 500 mg PO BIDCM 12/13/18 lisinopril 20 mg tablet 20 mg PO BID #180 tab 12/24/18 Ferrous Sulfate [Iron] 325 mg PO BID 04/23/19 Polyethylene Glycol 3350 [Miralax] 17 gm PO DAILY PRN 04/23/19 Trospium Chloride [Sanctura] 20 mg PO BID 04/23/19 ALPRAZolam [Xanax] 1 mg PO BID #6 tab 04/25/19 Apixaban [Eliquis] 2.5 mg PO BID 04/28/19 Doxycycline 100 mg PO BID 04/28/19 Oxycodone HCl/Acetaminophen 1 tab PO Q4H PRN PRN 04/28/19 [Percocet 5/325] Surgical History: Surgical History (Last Reviewed 04/24/19 @ 17:56 by Manny Sanchez DPM) Presence of coronary angioplasty implant and graft Onset Date: ~02/27/12 Z95.5 09/24/2009 bare-metal stent to RCA at [facility]; PTCA/LADARIUS to mid LAD 02/27/12 H/O arthroscopy of right knee Z98.890 History of cholecystectomy Z90.49 History of hysterectomy Z90.710 History of knee replacement Z96.659 History of tonsillectomy Z90.89 Status post total right knee replacement Onset Date: ~12/25/18 Z96.651 Surgical History: angioplasty - Stent., cholecystectomy, hysterectomy, total knee arthroplasty - June [address] Chua, tonsillectomy, - - Right knee arthroscopy. Psychiatric History: Anxiety, Depression [employer] History: dysfunctional uterine bld Lives: Spouse/ Significant Other Smoking Status: Never smoker Tobacco Use: Non-smoker Alcohol: None Drugs: None - *Family History Maternal Family History: Family History (Last Reviewed 04/24/19 @ 17:56 by Manny Sanchez DPM) Mother CAD (coronary artery disease) Hypertension Father CAD (coronary artery disease) Brother Myocardial infarction Hypertension History Items: No pertinent history Paternal Family History: Family History (Last Reviewed 04/24/19 @ 17:56 by Manny Sanchez DPM) Mother CAD (coronary artery disease) Hypertension Father CAD (coronary artery disease) Brother Myocardial infarction Hypertension History Items: No pertinent history Review of Systems Constitutional: Denies: Chills, Fever, Weight Change HEENT: Denies: Head Aches, Sinus Congestion, Sinus Drainage Cardiovascular: Denies: Chest Pain, Palpitations Respiratory: Denies: Cough, Shortness of breath at rest, Sputum production Gastrointestinal: Denies: Abdominal Pain, Nausea, Vomiting Genitourinary: Denies: Dysuria Musculoskeletal: Reports: Muscle pain - Spasm.. Denies: Joint Pain, Joint Tenderness Skin: Denies: Rash, Wounds Neurological: Denies: Numbness, Tingling, Focal weakness Psychiatric: Denies: Anxiety, Depression, Homicidal Ideations, Suicidal Ideations Hematologic/ Lymphatic: Denies: Easy Bruising, Easy Bleeding VTE Information - Inpt Only VTE Present on Admission: No VTE Mechan Device Prophylaxis: Knee High FRANCI Hose VTE Pharm Prophylaxis ordered?: Yes Patient Problems: Active and Suspected Problems (Last Reviewed 04/24/19 @ 17:56 by Manny Sanchez DPM) Debility (Acute) - Physical Exam Vitals/I&O's: Vital Signs Temp Pulse Resp BP Pulse Ox 98.6 F 75 18 167/81 H 94 04/28/19 16:03 04/28/19 18:42 04/28/19 18:42 04/28/19 17:50 04/28/19 18:42 Oxygen Delivery Method Room Air Weight: 119.9 kg Body Mass Index (BMI) 48.3 Finger Stick Blood Glucose 144 Intake and Output for Last 24 Hours 04/26/19 04/27/19 04/28/19 23:59 23:59 23:59 Intake Total 240 / 240 Balance 240 / 240 General: Alert, Oriented x3, Cooperative HEENT: Atraumatic, PERRLA, EOMI, Normocephalic Neck: Supple, No JVD, Negative Carotid Bruits Lungs: Clear to auscultation, Normal air movement Cardiovascular: Regular rate, No murmurs Abdomen: Bowel Sounds Present, Soft, Non Tender Extremities: No edema, Capillary Refill Less than 3 Seconds, - - Right lower extremity splinted, dressed. Skin: No rashes, No breakdown Musculoskeletal: No Tenderness to Palpation of Joints or Extremities Neurological: Cranial nerves II-XII grossly intact Psych/Mental Status: Normal Affect, Appropriate Laboratory Results 04/28/19 17:29: POC Glucose 110 Current Medications Alprazolam (Xanax) 1 mg PO BID [facility] Last Admin: 04/28/19 17:54 Dose: 1 mg Documented by: Amlodipine Besylate (Norvasc) 5 mg PO DAILY [facility] Apixaban (Eliquis) 2.5 mg PO BID [facility] Last Admin: 04/28/19 17:51 Dose: 2.5 mg Documented by: Atorvastatin Calcium (Lipitor) 40 mg PO QHS [facility] Clopidogrel Bisulfate (Plavix) 75 mg PO QHS [facility] Doxycycline Monohydrate (Doxycycline) 100 mg PO BID [facility] Last Admin: 04/28/19 17:49 Dose: 100 mg Documented by: Duloxetine HCl (Cymbalta) 60 mg PO DAILY [facility] Famotidine (Pepcid) 20 mg PO DAILY [facility] Ferrous Sulfate (Ferrous Sulfate) 325 mg PO 1200,1700 [facility] Last Admin: 04/28/19 17:49 Dose: 325 mg Documented by: Folic Acid ([facility] Acid) [facility] Lisinopril (Zestril) 20 mg PO BID [facility] Last Admin: 04/28/19 17:51 Dose: 20 mg Documented by: Metformin [facility] (Glucophage) [facility] Last Admin: 04/28/19 17:50 Dose: 500 mg Documented by: Metoprolol Tartrate (Lopressor (Beta Ana)) 25 mg PO BID [facility] Last Admin: 04/28/19 17:50 Dose: 25 mg Documented by: Oxycodone HCl (Oxyir) 5 mg PO Q4H PRN PRN PRN Reason: Pain Score 6-10/10 Last Admin: 04/28/19 17:47 Dose: 5 mg Documented by: Polyethylene Glycol (Miralax) 17 gm PO DAILY PRN PRN PRN Reason: Constipation Tizanidine HCl (Zanaflex) 8 mg PO TID [facility] Tolterodine Tartrate (Detrol La) 4 mg PO DAILY [facility] Tuberculin PPD (Tubersol, Aplisol, Ppd) 5 tu ID X1 ONE Stop: 04/29/19 10:01 Tuberculin PPD (Tubersol, Aplisol, Ppd) 5 tu ID X1 ONE Stop: 05/06/19 10:01 Assessment/Plan All Active Problems (Last Reviewed 04/24/19 @ 17:56 by Manny Sanchez DPM) Dislocation of right ankle joint (Acute) Closed right ankle fracture (Acute) Other acute postprocedural pain (Acute) Debility (Acute) 63 year old female with below past medical history hospitalized for right ankle dislocation, right ankle fracture, underwent ORIF right ankle 04/24/[address] Manny Sanchez, admitted to TCU with debility, here for rehabilitation, strengthening, prior to discharge home with . * Debility - PT/OT. * Pain - Tylenol 1000MG Q6H PRN pain (1-5), Oxycodone 5MG Q4H PRN pain (6-10),. * Bowel - Miralax 17GM daily, Senna/colace 1 tablet BID, Dulcolax 10MG daily PRN. * Adult immunization - Administer Prevnar 13, Pneumovax 23, Fluzone as appropriate. * DVT prophylaxis - Eliquis 2.5MG twice daily. * Anxiety - Xanax 1MG twice daily, doing well with chronic half-way use, GDR clinically not indicated. * Hypertension - Metoprolol 25MG BID, Lisinopril 20MG BID, Amlodipine 5MG daily. * Hyperlipidemia - Atorvastatin 40MG QHS. * Stroke with right hemiparesis - Plavix 75MG daily. * Depression - Duloxetine 60MG daily. * GERD - Famotidine 20MG daily. * Iron deficiency anemia - Ferrous Sulfate 325MG BID. * Folate deficiency - Folic Acid 1MG daily. * Diabetes Mellitus II - Metformin 500MG BID. * Muscle spasm - Tizanidine 8MG TID. * Overactive bladder - Tolterodine 4MG daily.
[2019-04-28] MEDS: Atorvastatin Calcium 40 MG Tablet PO (20:59)
[2019-04-28] MEDS: tiZANidine HCl 2 MG Tablet 8 MG PO (20:59)
[2019-04-28] MEDS: Clopidogrel Bisulfate 75 MG Tablet PO (20:59)
[2019-04-29 00:56] LABS: Bedside Glucose 131 mg/dL (70-110)
[2019-04-29 05:57] LABS: Absolute Lymphocyte Count 2.23 X10^3/uL (0.83-4.51); Absolute Neutrophil Count 6.4 X10^3/uL (2.0-7.7); Basophil# 0.07 X10^3/uL; Basophil% 0.7 % (0-1); Eosinophil# 0.26 X10^3/uL; Eosinophils% 2.7 % (0-5); Hematocrit 30.8 % (37-47); Hemoglobin 9.1 g/dL (12.0-15.0); Lymphocyte # 2.23 X10^3/ul (4.0); Lymphocyte % 22.9 % (19-41); Mean Corp Hgb Conc 29.5 g/dL (32-36); Mean Corpuscular Hgb 25.3 pg (27.0-32.0); Mean Corpuscular Volume 85.8 fL (81-99); Monocyte# 0.72 X10^3/uL; Monocyte% 7.4 % (0-10); NRBC Flagged by Analyzer 0 % (0-5); Neutrophil # 6.39 X10^3/uL (2.7-7.7); Neutrophil % 65.7 % (47-70); Platelet Count 324 K/mm3 (150-450); RBC Distribution Width CV 16.6 % (11.6-14.6); RBC Distribution Width SD 50.1 fl (35.1-43.9); Red Blood Count 3.59 M/mm3 (4.2-5.4); White Blood Count 9.7 K/mm3 (4.4-11.0)
[2019-04-29] MEDS: Tolterodine Tartrate 4 MG CAP.SA PO (06:02)
[2019-04-29] MEDS: amLODIPine 5 MG Tablet PO (06:02)
[2019-04-29] MEDS: ALPRAZolam 0.5 MG Tablet 1 MG PO ×2 (06:02→17:42)
[2019-04-29] MEDS: Famotidine 20 MG Tablet PO (06:02)
[2019-04-29] MEDS: Lisinopril 20 MG Tablet PO ×2 (06:02→17:43)
[2019-04-29] MEDS: APIXABAN 2.5 MG TABLET PO ×2 (06:02→17:43)
[2019-04-29] MEDS: DULoxetine Hcl 60 MG Capsule PO (06:02)
[2019-04-29] MEDS: tiZANidine HCl 2 MG Tablet 8 MG PO (06:02)
[2019-04-29 06:06] VITALS: BP 137/75; PULSE 63
[2019-04-29] MEDS: Senna/Docusate Sodium 1 Tablet PO (06:06)
[2019-04-29] MEDS: Polyethylene Glycol 3350 17 GM PACKET PO (06:06)
[2019-04-29] MEDS: Metoprolol Tartrate 25 MG Tablet PO ×2 (06:06→17:42)
--- NOTE | 2019-04-29 06:11 | NURSING ---
RN entered room to find right ankle tucked under left leg. RN informed pt RLE needs to be elevated. While pt adjusting self in bed with RN assistance pt noted to be pushing down on the bed with RLE. RN educated pt she is to be non-weight bearing to RLE in order to heal properly. Pt shock head turned head to right side and closed eyes. RN adjusted RLE onto pillows for elevation.
[2019-04-29 06:23] LABS: Anion Gap 5 (5-15); BUN 19 mg/dL (7-18); Calcium,Total 9.4 mg/dL (8.5-10.1); Chloride 107 mmol/L (98-107); EST Glomerular Filtration Rate 59 mL/min (>60); Est Glom Filt Rate - Afr Amer 71 mL/min (>60); Estimated Creatinine Clearance 44.36 ml/min; Glucose 119 mg/dL (74-106); Potassium 3.9 mmol/L (3.5-5.1); Sodium Level 141 mmol/L (136-145)
[2019-04-29 06:35] LABS: Bedside Glucose 125 mg/dL (70-110)
[2019-04-29] MEDS: metFORMIN HCl 500 MG Tablet PO ×2 (08:15→17:43)
[2019-04-29] MEDS: Folic Acid 1 MG Tablet PO (08:15)
--- NOTE | 2019-04-29 09:40 | RAD_ITS ---
STUDY: X-RAY - ABDOMEN/PELVIS REASON FOR EXAM: Female, 63 years old. PT UNABLE TO GIVE HX DUE TO SLEEPINESS. DIARRHEA. ANKLE SURGERY ON APRIL 24, 2019. TECHNIQUE: Single AP view of the abdomen / pelvis. COMPARISON: Comparison is made with prior study November 07, 2013. FINDINGS: Normal visualized lung bases. There is an unremarkable bowel gas pattern. The patient is status post cholecystectomy. Normal soft tissue structures. There are diffuse degenerative changes of the visualized lumbar spine. RAD/Abdomen Single View IMPRESSION: No acute abnormality is seen. Nonspecific bowel gas pattern. Electronically Signed: Boone Castro, at 10:51 EST , Service support ,
[2019-04-29 10:00] VITALS: PULSE 62; RESP 16; O2SAT 94
[2019-04-29] MEDS: Tuberculin,Purif.prot.deriv. 50 TU/ML Vial 5 ML ID (10:28)
--- NOTE | 2019-04-29 10:54 | NURSING ---
patient's spouse to nurses station stating the patient called him this morning wanting to go home. He asked if she was getting her pain medication every 4 hours. This nurse explained to the spouse that the patient has been sleeping most of the morning and has not voiced any pain when caring for her. The spouse also asked if her Zanaflex had been increased and this nurse made him aware that it had been. Notified SW that spouse was reporting that patient had contacted him about wanting to go home. Patient currently resting with eyes closed and even respirations, no s/s of pain noted. Will continue to monitor.
[2019-04-29 11:10] LABS: Bedside Glucose 114 mg/dL (70-110)
--- NOTE | 2019-04-29 11:11 | NURSING ---
Entered room to see patient lying in bed awake, this nurse asked her how she was feeling and she reported fine, but I forgot to order my lunch. This nurse provided pt her menu, glasses for reading and phone. Offered to assist with ordering, but pt stated she could order it.
[2019-04-29] MEDS: Ferrous Sulfate 325 MG Tablet PO ×2 (11:22→17:43)
--- NOTE | 2019-04-29 13:10 | NURSING ---
Spoke with Sharri, Dr. Sanchez's kindergarten teacher assistant. Made her aware of patient wanting to go home with [facility] and therapy, and also wanting to know what therapies Dr. Sanchez would recommend. Sharri stated that Dr. Sanchez attempted to call the patient this am but she did not answer her phone. Sharri stated she will attempt to speak with Dr. Sanchez in the next couple of hours, but that he is in surgery this afternoon.
[2019-04-29] MEDS: tiZANidine HCl 2 MG Tablet 4 MG PO ×2 (14:02→21:34)
[2019-04-29] MEDS: oxyCODONE 5 MG Tablet PO ×2 (14:02→19:23)
--- NOTE | 2019-04-29 14:44 | PHA.CONS_ITS ---
<Pauline Martino M - Last Filed: 04/29/19 14:44> Progress Note - Pharmacy Subjective: TCU Admission Objective: Allergies ciprofloxacin [From Cipro] Allergy (Verified 04/24/19 11:17) Unknown escitalopram oxalate [From Lexapro] Allergy (Verified 04/24/19 11:17) Unknown heparin Allergy (Verified 04/24/19 11:17) Unknown mupirocin [From Bactroban] Allergy (Verified 04/24/19 11:17) Unknown trazodone Allergy (Verified 04/24/19 11:17) Unknown adhesive tape Adverse Reaction (Verified 04/24/19 11:17) Other Current Medications Generic Name Dose Route Start Last Admin Trade Name Freq PRN Reason Stop Dose Admin Acetaminophen 1,000 mg 04/28/19 20:56 Tylenol PO Q6H PRN PRN Pain Score 1-5/10 Alprazolam 1 mg 04/28/19 18:00 04/29/19 06:02 Xanax PO 1 mg BID [facility] Administration Amlodipine Besylate 5 mg 04/29/19 06:00 04/29/19 06:02 Norvasc PO 5 mg DAILY [facility] Administration Apixaban 2.5 mg 04/28/19 18:00 04/29/19 06:02 Eliquis PO 2.5 mg BID T[facility]AN Administration Atorvastatin Calcium 40 mg 04/28/19 22:00 04/28/19 20:59 Lipitor PO 40 mg QHS [facility] Administration Bisacodyl 10 mg 04/28/19 20:57 Dulcolax PO DAILY PRN Constipation Clopidogrel Bisulfate 75 mg 04/28/19 22:00 04/28/19 20:59 Plavix PO 75 mg QHS [facility] Administration Duloxetine HCl 60 mg 04/29/19 06:00 04/29/19 06:02 Cymbalta PO 60 mg DAILY [facility] Administration Famotidine 20 mg 04/29/19 06:00 04/29/19 06:02 Pepcid PO 20 mg DAILY [facility] Administration Ferrous Sulfate 325 mg 04/28/19 17:00 04/29/19 11:22 Ferrous Sulfate PO 325 mg 1200,1700 [facility] Administration Folic Acid 1 mg 04/29/19 08:00 04/29/19 08:15 Folic Acid PO 1 mg DAILYCM [facility] Administration Lisinopril 20 mg 04/28/19 18:00 04/29/19 06:02 Zestril PO 20 mg BID T[facility]AN Administration Metformin HCl 500 mg 04/28/19 17:00 04/29/19 08:15 Glucophage PO 500 mg BIDCM [facility] Administration Metoprolol Tartrate 25 mg 04/28/19 18:00 04/29/19 06:06 Lopressor (Beta Ana) PO 25 mg BID [facility] Administration Oxycodone HCl 5 mg 04/28/19 16:51 04/29/19 14:02 Oxyir PO 5 mg Q4H PRN PRN Administration Pain Score 6-10/10 Polyethylene Glycol 17 gm 04/29/19 06:00 04/29/19 06:06 Miralax PO 17 gm DAILY [facility] Administration Senna/Docusate Sodium 1 tablet 04/29/19 06:00 04/29/19 06:06 Senokot-S, Erica-Colace PO 1 tablet BID [facility] Administration Tizanidine HCl 4 mg 04/29/19 14:00 04/29/19 14:02 Zanaflex PO 4 mg TID [facility] Administration Tolterodine Tartrate 4 mg 04/29/19 06:00 04/29/19 06:02 Detrol La PO 4 mg DAILY [facility] Administration Tuberculin PPD 5 tu 05/06/19 10:00 Tubersol, Aplisol, Ppd ID 05/06/19 10:01 X1 ONE Problem List (Last Reviewed 04/24/19 @ 17:56 by Manny Sanchez DPM) Debility (Acute) GERD (gastroesophageal reflux disease) (Chronic) Overactive bladder (Chronic) Diabetes mellitus (Chronic) Coronary artery disease (Chronic) Hypertension (Chronic) Body mass index (BMI) 45.0-49.9, adult (Chronic) Stroke (Chronic) Right hemiparesis (Chronic) Vital Signs Temp Pulse Resp BP Pulse Ox 98.6 F 62 16 137/75 H 94 04/28/19 16:03 04/29/19 10:00 04/29/19 10:00 04/29/19 06:06 04/29/19 10:00 Oxygen Delivery Method Room Air Weight: 119.437 kg Body Mass Index (BMI) 48.3 Finger Stick Blood Glucose 144 Sodium 141 mmol/L (136-145) 04/29/19 05:05 Potassium 3.9 mmol/L (3.5-5.1) 04/29/19 05:05 Chloride 107 mmol/L (98-107) 04/29/19 05:05 Carbon Dioxide 29.0 mmol/L (21.0-32.0) 04/29/19 05:05 Anion Gap 5 (5-15) 04/29/19 05:05 BUN 19 mg/dL (7-18) H 04/29/19 05:05 Creatinine 1.00 mg/dL (0.55-1.02) 04/29/19 05:05 Est GFR (MDRD) Af Amer 71 mL/min (>60) 04/29/19 05:05 Est GFR (MDRD) Non-Af 59 mL/min (>60) L 04/29/19 05:05 BUN/Creatinine Ratio 19.0 RATIO (10-20) 04/29/19 05:05 Glucose 119 mg/dL (74-106) H 04/29/19 05:05 Assessment/Plan: 1. Pain: Tylenol 1000mg PO Q6h PRN pain scale 1-5/10, Oxycodone 5mg PO Q4h PRN pain scale 6-10/10. Please continue to monitor for increased/decreased pain, PRN medication usage 2. DVT prophylaxis: Eliquis 2.5mg PO BID. Please continue to monitor for signs/symptoms of bruising/bleeding 3. Hypertension: Amlodipine 5mg PO daily, Lisinopril 20mg PO BID, Metoprolol tartrate 25mg PO BID. Please continue to monitor BP, pulse, potassium level 4. Hyperlipidemia: Atorvastatin 40mg PO QHS. Please continue to monitor patient for joint pain, obtain lipid panel at least annually or sooner if clinically indicated 5. Stroke: Atorvastatin 40mg PO QHS, Plavix 75mg PO daily. Please continue to monitor patient for signs and symptoms of recurrent stroke or bleeding. See note above for recommendations regarding atorvastatin. 6. GERD: Famotidine 20mg PO daily. Please continue to monitor patient for medication effectiveness, renal function. Should CrCl >50ml/min, could consider increasing dose to 20mg PO BID. 7. Diabetes Mellitus II: Metformin 500mg PO BID. Please continue to monitor blood glucose, renal function. 8. Overactive bladder: Tolterodine 4mg PO daily. Please continue to monitor for improvement in OAB symptoms, medication effectiveness 9. Muscle spasm: Tizanidine 8mg PO TID. Please continue to monitor for medication effectiveness. Could consider switching to PRN to avoid excessive use if clinically appropriate. 10. Iron deficiency anemia: Ferrous Sulfate 325mg PO BID. Please continue to monitor patient for medication effectivenss, could consider ordering iron studies as clinically indicated. 11. Folate deficiency: Folic acid 1mg PO daily. Please continue to monitor Psychotropic Medications: 12. Anxiety: Alprazolam 1mg PO twice daily. If clinically indicated, please consider a GDR by 10/2019 13. Depression: Duloxetine 60mg PO daily. Please consider a GDR by 10/2019 if clinically indicated Unnecessary Medications: Bowel Regimen: Miralax 17g PO daily, Senna/Docusate 1 tablet PO BID, Dulcolax 10mg PO daily PRN. Please continue to monitor for S/S of constipation or diarrhea, PRN medication usage Date of Note:: 04/29/19 - Provider Comments Provider responsibility: Provider responsible to enter orders to implement recommendations <Adrián Almaraz Chi - Last Filed: 04/29/19 17:14> Progress Note - Pharmacy Subjective: [] Objective: Allergies ciprofloxacin [From Cipro] Allergy (Verified 04/24/19 11:17) Unknown escitalopram oxalate [From Lexapro] Allergy (Verified 04/24/19 11:17) Unknown heparin Allergy (Verified 04/24/19 11:17) Unknown mupirocin [From Bactroban] Allergy (Verified 04/24/19 11:17) Unknown trazodone Allergy (Verified 04/24/19 11:17) Unknown adhesive tape Adverse Reaction (Verified 04/24/19 11:17) Other Current Medications Generic Name Dose Route Start Last Admin Trade Name Freq PRN Reason Stop Dose Admin Acetaminophen 1,000 mg 04/28/19 20:56 Tylenol PO Q6H PRN PRN Pain Score 1-5/10 Alprazolam 1 mg 04/28/19 18:00 04/29/19 06:02 Xanax PO 1 mg BID [facility]AN Administration Amlodipine Besylate 5 mg 04/29/19 06:00 04/29/19 06:02 Norvasc PO 5 mg DAILY [facility]AN Administration Apixaban 2.5 mg 04/28/19 18:00 04/29/19 06:02 Eliquis PO 2.5 mg BID T[facility]AN Administration Atorvastatin Calcium 40 mg 04/28/19 22:00 04/28/19 20:59 Lipitor PO 40 mg QHS [facility] Administration Bisacodyl 10 mg 04/28/19 20:57 Dulcolax PO DAILY PRN Constipation Clopidogrel Bisulfate 75 mg 04/28/19 22:00 04/28/19 20:59 Plavix PO 75 mg QHS [facility] Administration Duloxetine HCl 60 mg 04/29/19 06:00 04/29/19 06:02 Cymbalta PO 60 mg DAILY [facility] Administration Famotidine 20 mg 04/29/19 06:00 04/29/19 06:02 Pepcid PO 20 mg DAILY [facility] Administration Ferrous Sulfate 325 mg 04/28/19 17:00 04/29/19 11:22 Ferrous Sulfate PO 325 mg 1200,1700 [facility] Administration Folic Acid 1 mg 04/29/19 08:00 04/29/19 08:15 Folic Acid PO 1 mg DAILYCM [facility] Administration Lisinopril 20 mg 04/28/19 18:00 04/29/19 06:02 Zestril PO 20 mg BID [facility] Administration Metformin HCl 500 mg 04/28/19 17:00 04/29/19 08:15 Glucophage PO 500 mg BIDCM [facility] Administration Metoprolol Tartrate 25 mg 04/28/19 18:00 04/29/19 06:06 Lopressor (Beta Ana) PO 25 mg BID [facility] Administration Oxycodone HCl 5 mg 04/28/19 16:51 04/29/19 14:02 Oxyir PO 5 mg Q4H PRN PRN Administration Pain Score 6-10/10 Polyethylene Glycol 17 gm 04/29/19 06:00 04/29/19 06:06 Miralax PO 17 gm DAILY [facility] Administration Senna/Docusate Sodium 1 tablet 04/29/19 06:00 04/29/19 06:06 Senokot-S, Erica-Colace PO 1 tablet BID [facility] Administration Tizanidine HCl 4 mg 04/29/19 14:00 04/29/19 14:02 Zanaflex PO 4 mg TID [facility] Administration Tolterodine Tartrate 4 mg 04/29/19 06:00 04/29/19 06:02 Detrol La PO 4 mg DAILY [facility] Administration Tuberculin PPD 5 tu 05/06/19 10:00 Tubersol, Aplisol, Ppd ID 05/06/19 10:01 X1 ONE Problem List (Last Reviewed 04/24/19 @ 17:56 by Manny Sanchez DPM) Debility (Acute) GERD (gastroesophageal reflux disease) (Chronic) Overactive bladder (Chronic) Diabetes mellitus (Chronic) Coronary artery disease (Chronic) Hypertension (Chronic) Body mass index (BMI) 45.0-49.9, adult (Chronic) Stroke (Chronic) Right hemiparesis (Chronic) Vital Signs Temp Pulse Resp BP Pulse Ox 97.6 F L 67 19 H 157/77 H 94 04/29/19 15:30 04/29/19 15:30 04/29/19 15:30 04/29/19 15:30 04/29/19 15:30 Oxygen Delivery Method Room Air Weight: 119.437 kg Body Mass Index (BMI) 48.3 Finger Stick Blood Glucose 144 Sodium 141 mmol/L (136-145) 04/29/19 05:05 Potassium 3.9 mmol/L (3.5-5.1) 04/29/19 05:05 Chloride 107 mmol/L (98-107) 04/29/19 05:05 Carbon Dioxide 29.0 mmol/L (21.0-32.0) 04/29/19 05:05 Anion Gap 5 (5-15) 04/29/19 05:05 BUN 19 mg/dL (7-18) H 04/29/19 05:05 Creatinine 1.00 mg/dL (0.55-1.02) 04/29/19 05:05 Est GFR (MDRD) Af Amer 71 mL/min (>60) 04/29/19 05:05 Est GFR (MDRD) Non-Af 59 mL/min (>60) L 04/29/19 05:05 BUN/Creatinine Ratio 19.0 RATIO (10-20) 04/29/19 05:05 Glucose 119 mg/dL (74-106) H 04/29/19 05:05 Assessment/Plan: Psychotropic Medications: Unnecessary Medications: Bowel Regimen: - Provider Comments Provider responsibility: Provider responsible to enter orders to implement recommendations Provider Comments to Recommendations by Pharmacy: Agree
[2019-04-29 15:30] VITALS: BP 157/77; PULSE 67; RESP 19; TEMP 36.4; O2SAT 94
--- NOTE | 2019-04-29 15:31 | CASEMGMT ---
Social Work Spoke with patient and about requesting to DC. Attempting to have conversation and determine barriers to wanting to remain in TCU. Pt ultimately stated she is anxious and just wants to be home. Explained to pt and pt is currently requiring modx2 for stand pivot transfers as pt is NWB to right foot. Inquired if would be able to care for pt at home. unsure and would like pt to have f/u with Dr. Sanchez and his therapy recommendations. also requested to get med review as pt is on different meds from home. Notified nurse and will continue to follow. Monica Curtis, [employer]URAL [employer]LECT[employer]ICATION ENGINEER SWITCHING CLERK
[2019-04-29 16:50] LABS: Bedside Glucose 142 mg/dL (70-110)
--- NOTE | 2019-04-29 16:56 | CASEMGMT ---
Social Work Reviewed and agreed social work finance accounting internship documentation on this date. Monica Curtis MSW PLANT PHYSIOLOGY TEACHER
[2019-04-29 17:42] VITALS: BP 157/77; PULSE 67
[2019-04-29] MEDS: Clopidogrel Bisulfate 75 MG Tablet PO (21:34)
[2019-04-29] MEDS: Atorvastatin Calcium 40 MG Tablet PO (21:34)
[2019-04-29 22:01] LABS: Bedside Glucose 122 mg/dL (70-110)
[2019-04-30] MEDS: oxyCODONE 5 MG Tablet PO ×2 (03:12→08:38)
[2019-04-30 05:26] VITALS: BP 143/85; PULSE 68
[2019-04-30] MEDS: tiZANidine HCl 2 MG Tablet 4 MG PO (05:26)
[2019-04-30] MEDS: Metoprolol Tartrate 25 MG Tablet PO (05:26)
[2019-04-30] MEDS: Senna/Docusate Sodium 1 Tablet PO (05:26)
[2019-04-30] MEDS: ALPRAZolam 0.5 MG Tablet 1 MG PO (05:26)
[2019-04-30] MEDS: APIXABAN 2.5 MG TABLET PO (05:27)
[2019-04-30] MEDS: Tolterodine Tartrate 4 MG CAP.SA PO (05:27)
[2019-04-30] MEDS: amLODIPine 5 MG Tablet PO (05:27)
[2019-04-30] MEDS: DULoxetine Hcl 60 MG Capsule PO (05:27)
[2019-04-30] MEDS: Lisinopril 20 MG Tablet PO (05:27)
[2019-04-30] MEDS: Famotidine 20 MG Tablet PO (05:28)
[2019-04-30] MEDS: Polyethylene Glycol 3350 17 GM PACKET PO (05:28)
[2019-04-30] MEDS: Nystatin Powder 15gm Bottle 1 APPLIC TOPICAL (05:46)
[2019-04-30] MEDS: Menthol/Lanolin/Calamine/Znox 113 GM Tube 1 APPLIC TOPICAL (05:46)
[2019-04-30 06:35] LABS: Bedside Glucose 123 mg/dL (70-110)
[2019-04-30] MEDS: metFORMIN HCl 500 MG Tablet PO (08:39)
[2019-04-30] MEDS: Folic Acid 1 MG Tablet PO (08:39)
--- NOTE | 2019-04-30 08:51 | DCINST_ITS ---
- Discharge Diagnoses Current Active Problems: Current Active and Chronic Problems (Last Reviewed 04/24/19 @ 17:56 by Manny Sanchez DPM) Debility (Acute) GERD (gastroesophageal reflux disease) (Chronic) Overactive bladder (Chronic) Diabetes mellitus (Chronic) Coronary artery disease (Chronic) Hypertension (Chronic) Body mass index (BMI) 45.0-49.9, adult (Chronic) Stroke (Chronic) Right hemiparesis (Chronic) You will use the following diet at home:: No restrictions, Regular Your food should be the consistency of: Regular Your liquids should be the consistency of: Regular/Thin Discharge Activity: Use Walker Weight Bearing Status: No weight bearing - Right lower extremity. Call your doctor if you observe: Fever of 101 or Higher, Inability to urinate, Inability to have a bowel movement, Shortness of breath, Chest pain, Uncontrolled pain Allergies/Adverse Reactions: Allergies ciprofloxacin [From Cipro] Allergy (Verified 04/24/19 11:17) Unknown escitalopram oxalate [From Lexapro] Allergy (Verified 04/24/19 11:17) Unknown heparin Allergy (Verified 04/24/19 11:17) Unknown mupirocin [From Bactroban] Allergy (Verified 04/24/19 11:17) Unknown trazodone Allergy (Verified 04/24/19 11:17) Unknown adhesive tape Adverse Reaction (Verified 04/24/19 11:17) Other Medications to take at Discharge Clopidogrel Bisulfate [Plavix] 75 mg PO QHS 08/25/15 Atorvastatin Calcium [Lipitor] 40 mg PO QHS 01/27/16 Duloxetine HCl 60 mg PO DAILY 07/05/17 ranitidine HCl 150 mg tablet 150 mg PO QDAY 10/31/17 metoprolol tartrate 25 mg tablet 25 mg PO BID #180 tab 09/16/18 Tizanidine HCl [Zanaflex] 4 mg PO BID 10/15/18 Amlodipine Besylate [Norvasc] 5 mg PO QDAY 10/31/18 Folic Acid 1 mg PO DAILY 12/13/18 Metformin HCl 500 mg PO BIDCM 12/13/18 lisinopril 20 mg tablet 20 mg PO BID #180 tab 12/24/18 Ferrous Sulfate [Iron] 325 mg PO BID 04/23/19 Polyethylene Glycol 3350 [Miralax] 17 gm PO DAILY PRN 04/23/19 Trospium Chloride [Sanctura] 20 mg PO BID 04/23/19 ALPRAZolam [Xanax] 1 mg PO BID #6 tab 04/25/19 Oxycodone HCl/Acetaminophen [Percocet 5-325] 1 tab PO Q4H PRN PRN 04/28/19 Acetaminophen [Tylenol] 1,000 mg PO Q6H PRN PRN tablet 04/30/19 Apixaban [Eliquis] 2.5 mg PO BID #60 tab 04/30/19 Menthol/Lanolin/Calamine/Znox [Calmoseptine Ointment] 1 applic TOPICAL 0600,2200 tube 04/30/19 Nystatin Powder [Mycostatin Powder] 1 applic TOPICAL 0600,2200 bottle 04/30/19 The following prescriptions were given: Apixaban [Eliquis] 2.5 mg PO BID #60 tab Transmission Status: Pending to [facility]/pharmacy #[id number] Primary Care Physician: Sudheer Lion MD [Primary Care Provider] - Please follow up with your Primary Care Physician in: 1 week. Test Results: Test results from this visit will be discussed in further detail at your follow- up appointment, if applicable. Please Follow Up With: Sudheer Lion MD When: PCP F/U after D/C from TCU Please Follow Up With: Manny Sanchez DPM When: 3 days. Proposed Discharge Date: 04/30/19
[2019-04-30 08:53] VITALS: BP 165/77; PULSE 69; RESP 16; TEMP 36.6; O2SAT 97
--- NOTE | 2019-04-30 08:53 | DS.PCM_ITS ---
Discharge Date and Diagnosis - Problem List Patient Problems: Active and Suspected Problems (Last Reviewed 04/24/19 @ 17:56 by Manny Sanchez DPM) Debility (Acute) Date of Admission: 04/28/19 Date of Discharge: 04/30/19 - Primary Discharge Diagnosis Active and Suspected Problems (Last Reviewed 04/24/19 @ 17:56 by Manny Sanchez DPM) Debility (Acute) - Secondary Discharge Diagnosis Chronic Problems (Last Reviewed 04/24/19 @ 17:56 by Manny Sanchez DPM) GERD (gastroesophageal reflux disease) (Chronic) Overactive bladder (Chronic) Diabetes mellitus (Chronic) Coronary artery disease (Chronic) Hypertension (Chronic) Body mass index (BMI) 45.0-49.9, adult (Chronic) Stroke (Chronic) Right hemiparesis (Chronic) Type 2 diabetes mellitus (Chronic) Hemoglobin A1c is 7.5% Presence of stent in coronary artery (Chronic ~02/27/12) 09/24/2009 bare-metal stent to RCA at [facility]; PTCA/LADARIUS to mid LAD 02/27/12 Essential hypertension (Chronic) Atherosclerotic heart disease of ch[place]koot coronary artery without angina pectoris (Chronic) Nocturnal hypoxemia (Chronic) Pulmonary hypertension (Chronic) Insomnia (Chronic) Morbid obesity (Chronic) Hyperlipidemia (Chronic) Hospital Course and Treatment Imaging Results: 04/28/19 16:31 Diet: Calorie Controlled Food consistency:: Regular Liquid Consistency:: Regular/Thin How many daily calories?: 1800 calorie Clinical Impression(s) from Imaging Studies KUB X-Ray 04/29/19 09:40 IMPRESSION: No acute abnormality is seen. Nonspecific bowel gas pattern. Electronically Signed: Boone Castro, at 10:51 EST , Service support , Labs (Last 48 Hours) 04/28/19 04/29/19 04/29/19 17:29 00:49 05:05 WBC 9.7 RBC 3.59 L Hgb 9.1 L Hct 30.8 L MCV 85.8 MCH 25.3 L MCHC 29.5 L RDW Std Deviation 50.1 H RDW Coeff of Uriel 16.6 H Plt Count 324 MPV 10.0 Immature Gran % (Auto) 0.600 Neut % (Auto) 65.7 Lymph % (Auto) 22.9 [place] % (Auto) 7.4 Eos % (Auto) 2.7 Baso % (Auto) 0.7 Absolute Neuts (auto) 6.4 Absolute Lymphs (auto) 2.23 Nucleated RBC % 0 Sodium Potassium Chloride Carbon Dioxide Anion Gap BUN Creatinine Estim Creat Clear Calc Est GFR (MDRD) Af Amer Est GFR (MDRD) Non-Af BUN/Creatinine Ratio Glucose Calcium POC Glucose 110 131 H 04/29/19 04/29/19 04/29/19 05:05 06:30 11:03 WBC RBC Hgb Hct MCV MCH MCHC RDW Std Deviation RDW Coeff of Uriel Plt Count MPV Immature Gran % (Auto) Neut % (Auto) Lymph % (Auto) [place] % (Auto) Eos % (Auto) Baso % (Auto) Absolute Neuts (auto) Absolute Lymphs (auto) Nucleated RBC % Sodium 141 Potassium 3.9 Chloride 107 Carbon Dioxide 29.0 Anion Gap 5 BUN 19 H Creatinine 1.00 Estim Creat Clear Calc 44.36 Est GFR (MDRD) Af Amer 71 Est GFR (MDRD) Non-Af 59 L BUN/Creatinine Ratio 19.0 Glucose 119 H Calcium 9.4 POC Glucose 125 H 114 H 04/29/19 04/29/19 04/30/19 16:37 21:55 06:24 WBC RBC Hgb Hct MCV MCH MCHC RDW Std Deviation RDW Coeff of Uriel Plt Count MPV Immature Gran % (Auto) Neut % (Auto) Lymph % (Auto) [place] % (Auto) Eos % (Auto) Baso % (Auto) Absolute Neuts (auto) Absolute Lymphs (auto) Nucleated RBC % Sodium Potassium Chloride Carbon Dioxide Anion Gap BUN Creatinine Estim Creat Clear Calc Est GFR (MDRD) Af Amer Est GFR (MDRD) Non-Af BUN/Creatinine Ratio Glucose Calcium POC Glucose 142 H 122 H 123 H Operations: None, - - Right ankle open reduction with internal fixation Procedures: None Summary of Care Provided: The patient is a 63 year old Female with below past medical history hospitalized for right ankle dislocation, right ankle fracture, underwent ORIF right ankle 04/24/[address] Manny Sanchez, admitted to TCU with debility, here for rehabilitation, strengthening, prior to discharge home with . Discharge home with , [facility] PT/OT/SN/SW. Resident needs Home Health Care due to right ankle fracture. Patient Problems: Active and Suspected Problems (Last Reviewed 04/24/19 @ 17:56 by Manny Sanchez DPM) Debility (Acute) - Physical Exam Vitals/I&O's: Vital Signs Temp Pulse Resp BP Pulse Ox 97.6 F L 68 19 H 143/85 H 94 04/29/19 15:30 04/30/19 05:26 04/29/19 15:30 04/30/19 05:26 04/29/19 15:30 Oxygen Delivery Method Room Air Weight: 119.437 kg Body Mass Index (BMI) 48.3 Finger Stick Blood Glucose 144 Intake and Output for Last 24 Hours 04/28/19 04/29/19 04/30/19 23:59 23:59 23:59 Intake Total 240 / 240 480 / 480 460 / 460 Balance 240 / 240 480 / 480 460 / 460 Laboratory Results 04/29/19 11:03: POC Glucose 114 H 04/29/19 16:37: POC Glucose 142 H 04/29/19 21:55: POC Glucose 122 H 04/30/19 06:24: POC Glucose 123 H Current Medications Acetaminophen (Tylenol) 1,000 mg PO Q6H PRN PRN PRN Reason: Pain Score 1-5/10 Alprazolam (Xanax) 1 mg PO BID [facility] Last Admin: 04/30/19 05:26 Dose: 1 mg Documented by: Amlodipine Besylate (Norvasc) 5 mg PO DAILY [facility] Last Admin: 04/30/19 05:27 Dose: 5 mg Documented by: Apixaban (Eliquis) 2.5 mg PO BID [facility] Last Admin: 04/30/19 05:27 Dose: 2.5 mg Documented by: Atorvastatin Calcium (Lipitor) 40 mg PO QHS [facility] Last Admin: 04/29/19 21:34 Dose: 40 mg Documented by: Bisacodyl (Dulcolax) 10 mg PO DAILY PRN PRN Reason: Constipation Calamine/Phenol (Calmoseptine Ointment) 1 applic TOPICAL 0600,2200 [facility]; Protocol Last Admin: 04/30/19 05:46 Dose: 1 applicatio Documented by: Clopidogrel Bisulfate (Plavix) 75 mg PO QHS [facility] Last Admin: 04/29/19 21:34 Dose: 75 mg Documented by: Duloxetine HCl (Cymbalta) 60 mg PO DAILY [facility] Last Admin: 04/30/19 05:27 Dose: 60 mg Documented by: Famotidine (Pepcid) 20 mg PO DAILY [facility] Last Admin: 04/30/19 05:28 Dose: 20 mg Documented by: Ferrous Sulfate (Ferrous Sulfate) 325 mg PO 1200,1700 [facility] Last Admin: 04/29/19 17:43 Dose: 325 mg Documented by: [facility]: 04/30/19 08:39 Dose: 1 mg Documented by: Lisinopril (Zestril) 20 mg PO BID [facility] Last Admin: 04/30/19 05:27 Dose: 20 mg Documented by: [facility]) [facility] Last Admin: 04/30/19 08:39 Dose: 500 mg Documented by: Metoprolol Tartrate (Lopressor (Beta Ana)) 25 mg PO BID [facility] Last Admin: 04/30/19 05:26 Dose: 25 mg Documented by: Nystatin (Mycostatin Powder) 1 applic TOPICAL 0600,2200 [facility]; Protocol Last Admin: 04/30/19 05:46 Dose: 1 applicatio Documented by: Oxycodone HCl (Oxyir) 5 mg PO Q4H PRN PRN PRN Reason: Pain Score 6-10/10 Last Admin: 04/30/19 08:38 Dose: 5 mg Documented by: Polyethylene Glycol (Miralax) 17 gm PO DAILY [facility] Last Admin: 04/30/19 05:28 Dose: 17 gm Documented by: Senna/Docusate Sodium (Senokot-S, Erica-Colace) 1 tablet PO BID [facility] Last Admin: 04/30/19 05:26 Dose: 1 tablet Documented by: Tizanidine HCl (Zanaflex) 4 mg PO TID [facility] Last Admin: 04/30/19 05:26 Dose: 4 mg Documented by: Tolterodine Tartrate (Detrol La) 4 mg PO DAILY [facility] Last Admin: 04/30/19 05:27 Dose: 4 mg Documented by: Tuberculin PPD (Tubersol, Aplisol, Ppd) 5 tu ID [id number] ONE Stop: 05/06/19 10:01 Discharge Diet: No Restrictions Discharge Activity: Use Walker Weight Bearing Status: No weight bearing - Right lower extremity. Call your doctor if you observe: Fever of 101 or Higher, Inability to urinate, Inability to have a bowel movement, Shortness of breath, Chest pain, Uncontrolled pain Home Medications: Medications to take at Discharge Clopidogrel Bisulfate [Plavix] 75 mg PO QHS 08/25/15 Atorvastatin Calcium [Lipitor] 40 mg PO QHS 01/27/16 Duloxetine HCl 60 mg PO DAILY 07/05/17 ranitidine HCl 150 mg tablet 150 mg PO QDAY 10/31/17 metoprolol tartrate 25 mg tablet 25 mg PO BID #180 tab 09/16/18 Tizanidine HCl [Zanaflex] 4 mg PO BID 10/15/18 Amlodipine Besylate [Norvasc] 5 mg PO QDAY 10/31/18 Folic Acid 1 mg PO DAILY 12/13/18 Metformin HCl 500 mg PO BIDCM 12/13/18 lisinopril 20 mg tablet 20 mg PO BID #180 tab 12/24/18 Ferrous Sulfate [Iron] 325 mg PO BID 04/23/19 Polyethylene Glycol 3350 [Miralax] 17 gm PO DAILY PRN 04/23/19 Trospium Chloride [Sanctura] 20 mg PO BID 04/23/19 ALPRAZolam [Xanax] 1 mg PO BID #6 tab 04/25/19 Oxycodone HCl/Acetaminophen [Percocet 5-325] 1 tab PO Q4H PRN PRN 04/28/19 Acetaminophen [Tylenol] 1,000 mg PO Q6H PRN PRN tablet 04/30/19 Apixaban [Eliquis] 2.5 mg PO BID #60 tab 04/30/19 Menthol/Lanolin/Calamine/Znox [Calmoseptine Ointment] 1 applic TOPICAL 0600,2200 tube 04/30/19 Nystatin Powder [Mycostatin Powder] 1 applic TOPICAL 0600,2200 bottle 04/30/19 Following Prescrptions Were Given to Patient: Apixaban [Eliquis] 2.5 mg PO BID #60 tab Transmission Status: Pending to [facility]/pharmacy #[id number] Primary Care Physician: Sudheer Lion MD [Primary Care Provider] - Please follow up with your Primary Care Physician in: 1 week. Please Follow Up With: Sudheer Lion MD When: PCP F/U after D/C from TCU Please Follow Up With: Manny Sanchez DPM When: 3 days. Disposition: Home with Home Health Minutes spent on discharge:: 35 Patient Condition:: Stable Medical Necessity - Tobacco Use Smoking Status: Never smoker Tobacco Use: Non-smoker Meaningful Use Info Meaningful Use Diagnoses (Choose all that apply): None applicable
--- NOTE | 2019-04-30 09:20 | CASEMGMT ---
Social Work Spoke with patient and about pt requesting to DC home on this date. Dr. Sanchez preferred pt to remain until f/u appt 05/02, but pt adamant about returning home. IDT notified. Pt requesting [facility] - referral made for PT/OT/SN/SW. No DME needs. Plan: DC home with 04/30 with [facility] PT/OT/SN/SW Monica Curtis, SHIRIN LEONARDW
[2019-04-30 10:00] VITALS: PULSE 69; RESP 16; O2SAT 97
[2019-04-30 11:01] LABS: Bedside Glucose 91 mg/dL (70-110)
--- NOTE | 2019-04-30 12:08 | NURSING ---
patient called stating she went to the pharmacy to sampler pickup her medication and states the Eliquis is too expensive and requested something else. Dr. Almaraz notified and stated there was no other options. Patient made aware of Dr. Almaraz's respond.
--- NOTE | 2019-05-08 12:12 | MDS.RN ---
Information for the mds was obtained from review of the clinical record, interview of resident, staff, and direct observation of resident's care.
== END 2019-04-30 11:30 | disposition home health service (06) | DRG 560 ==
LOC: TCU 16:01
PROVIDERS: Admitting Provider Family Medicine Geriatric Medicine; PCP Family Medicine; Referring Provider Family Medicine Geriatric Medicine; Visit Provider Family Medicine Geriatric Medicine
DX: S82.891D Other fracture of right lower leg, subsequent encounter for closed fracture with routine healing (principal); Z68.42 Body mass index [BMI] 45.0-49.9, adult; I69.351 Hemiplegia and hemiparesis following cerebral infarction affecting right dominant side; W01.0XXD Fall on same level from slipping, tripping and stumbling without subsequent striking against object, subsequent encounter; E78.5 Hyperlipidemia, unspecified; I27.20 Pulmonary hypertension, unspecified; I10 Essential (primary) hypertension; I25.10 Atherosclerotic heart disease of native coronary artery without angina pectoris; K21.9 Gastro-esophageal reflux disease without esophagitis; N32.81 Overactive bladder; E11.9 Type 2 diabetes mellitus without complications; E66.01 Morbid (severe) obesity due to excess calories; Z71.3 Dietary counseling and surveillance; F41.9 Anxiety disorder, unspecified; F32.9 Major depressive disorder, single episode, unspecified; D50.9 Iron deficiency anemia, unspecified
CPT/HCPCS: 36415; 74018; 80048; 82962; 85025; 97110; 97116; 97162; 97166; 97530; 97535; 97802

== ENCOUNTER 2019-05-02 12:45 | Emergency (ER) | payer MEDICARE, OTHER, SELFPAY ==
[2019-04-28 16:03] VITALS: BMI 48.3
[2019-05-02 12:45] VITALS: BP 172/98; PULSE 84; RESP 18; TEMP 36.6; O2SAT 96; BMI 47.5
--- NOTE | 2019-05-02 14:07 | VDUE_ITS ---
Reason For Study: LUE pain/tenderness Left Proximal Left jugular vein is spontaneous, widely patent, phasic, with no intraluminal echogenicity noted. Left subclavian vein is spontaneous, widely patent, phasic, with no intraluminal echogenicity noted. Left Arm Left axillary vein is spontaneous, patent, phasic, competent, compressible and demonstrates augmentation. Left brachial vein is compressible. Cephalic V below antecubital is compressible. Cephalic V just above antecubital is dilated and noncompressible for a short segment. Cephalic V prox is compressible. Left basilic vein is compressible. Left Lower Arm Left radial vein is compressible. Left ulnar vein is compressible. Patient Safety Prelim given to Dr. Thompson & ED. Interpretation Summary There is no evidence of left upper extremity deep vein thrombosis. Superficial thrombophlebitis left cephalic vein proximal to antecubital space Ordering Physician: Deyvi Thompson Referring Physician: Sudheer Lion Performed By: Tala Florian, DIANA, RVT ?
--- NOTE | 2019-05-02 14:11 | ED.VISSUMM ---
- ER Visit Summary Date of Service: 05/02/19 Chief Complaint: Tenderness left biceps area History of Present Illness: The patient is a 63 F status post right foot fracture surgery by 1 of the local staffing coordinator that works at [facility]. Patient states that she had an IV in her left antecubital area and an anterior replace it with a second IV in an area. For about the last week she has had mild redness tenderness to her left bicep. Denies fever or chills. No pain in her left axilla. No prior history. She never had a DVT or PE. She is never had phlebitis. Physical Examination: Older female no acute distress. Vital signs are stable afebrile. H EENT exam unremarkable. Neck nontender no lymphadenopathy. No JVD. Lungs clear to auscultation bilaterally. Heart regular rhythm no murmur. Abdomen soft nontender. Extremities moves all 4. Her right lower extremity is in a well-padded splint. Left calf is nontender without edema. Both upper extremities are neurovascular intact with normal data center architect strength. 5/5 motor strength. Left hand there is no left forearm or hand swelling. No forearm or hand redness. She is a strong left radial pulse. Her left bicep area there is an area of tenderness and indurated tissue that could be secondary to phlebitis versus a DVT versus even an abscess. There is no axillary tenderness or axillary lymphadenopathy. There is no cellulitis on the bicep. Neuro exam unremarkable. Test Results: Noninvasive study left upper extremity as read by the industrial engineering technician shows a short segment of cephalic vein superficial thrombophlebitis. Emergency Department Course and Treatment: Patient has a red tender in her left bicep that most likely is a superficial thrombophlebitis status post IV versus DVT versus an abscess. Ultrasound of the upper extremity be obtained. Repeat exam at 1640 she is doing well. There is been no change in the upper extremity exam. Treatment Plan: Warm compresses the area. Motrin for pain and inflammation. Patient is also currently on antibiotic doxycycline due to the recent right foot surgery. Disposition: Discharge Impression: Left upper extremity superficial thrombophlebitis This note was generated with [employer] dictation software. It may contain incorrect words, spelling, and punctuation that were not noted in review of the chart prior to signing ED Disposition - Plan for ED Patient: Disposition: Home or Assisted Living Instructions: THROMBOPHLEBITIS, Superficial Prescriptions: Cephalexin [Keflex] 500 mg PO Q6 #28 cap Prescription Printed Referrals: Sudheer Lion MD [Primary Care Provider] - 1 Week if not improving Additional Instructions: Warm compresses to your arm. Motrin for pain and inflammation. Follow-up with your doctor if not improving return emergency department if worse. Thank you Keflex as prescribed.
[2019-05-02 16:23] VITALS: RESP 18
--- NOTE | 2019-05-02 16:37 | ED.DEP ---
ED Disposition - Plan for ED Patient: Disposition: Home or Assisted Living Instructions: THROMBOPHLEBITIS, Superficial Prescriptions: Cephalexin [Keflex] 500 mg PO Q6 #28 cap Prescription Printed Referrals: Sudheer Lion MD [Primary Care Provider] - 1 Week if not improving Additional Instructions: Warm compresses to your arm. Motrin for pain and inflammation. Follow-up with your doctor if not improving return emergency department if worse. Thank you Keflex as prescribed.
== END 2019-05-02 16:56 | disposition home or self-care (01) ==
PROVIDERS: Emergency Provider Emergency Medicine; PCP Family Medicine
DX: I80.8 Phlebitis and thrombophlebitis of other sites (principal); Z98.890 Other specified postprocedural states; I10 Essential (primary) hypertension; E11.9 Type 2 diabetes mellitus without complications; I25.10 Atherosclerotic heart disease of native coronary artery without angina pectoris; D64.9 Anemia, unspecified; Z86.73 Personal history of transient ischemic attack (TIA), and cerebral infarction without residual deficits; Z79.02 Long term (current) use of antithrombotics/antiplatelets; Z79.84 Long term (current) use of oral hypoglycemic drugs; Z79.899 Other long term (current) drug therapy
CPT/HCPCS: 93971; 99282

== ENCOUNTER 2019-05-20 14:58 | Outpatient (RCR) | payer MEDICARE, OTHER, SELFPAY | END 2019-06-07 23:59 | LOC: HHLAB 14:58 | PROVIDERS: PCP Family Medicine; Referring Provider Urology; Visit Provider Urology | DX: N39.0 Urinary tract infection, site not specified (principal) | CPT/HCPCS: 87077; 87086; 87088; 87186 ==

== ENCOUNTER → 2019-06-23 | Outpatient (CLI) | payer MEDICARE, OTHER, SELFPAY | END | disposition home or self-care (01) | LOC: LABSPEC 16:23 | PROVIDERS: PCP Family Medicine; Referring Provider Urology; Visit Provider Urology | DX: N39.0 Urinary tract infection, site not specified (principal) | CPT/HCPCS: 87077; 87086; 87088; 87186 ==

== ENCOUNTER 2019-07-10 14:30 | Outpatient (RCR) | payer MEDICARE, OTHER, SELFPAY ==
--- NOTE | 2019-06-20 07:51 | HP.PTEVAL_ITS ---
Patient's Visit Information MACKENZIE AKHTAR is a 63 year old F referred to Physical Therapy by Manny Sanchez DPM with a diagnosis of R nondisplaced fx of talus, and displaced bimalleolar fx of RLE. Date of Evaluation: 06/18/19 Physical Therapist: Khoi Mandel DPT - Visit Plan Frequency: 2-3x /Week Duration: 4-6 Weeks Plan: Start with R ankle ROM, GS stretching, initiate light [place] strengthening of R ankle/knee/hip. Keep checking lateral incision to make sure that it is closing and no signs of infection. Make sure she is maintaining 50% WBing on her RLE. Pt. is very conserned about the lack of strength with her R quad as well. Cont. to address these limitations progressing as able. - Subjective Subjective: Pt. is here today for her initial evaluation with diagnosis of R nondisplaced fx of talus, and displaced bimalleolar fx of RLE. Pt. reports falling while trying to slide down wall to sit on ground in order to play with her dog. Pt. had surgery on 04/24/19. Pt. spent 1 day on TCU then left. Pt. is 50% Wbing on her RLE at this point in time with CAM boot. Pt. reports minimal pain, but does report increased swelling. Pt. is to see physician later this week. Pt. did home health, but reprots focus on transfers and functional mobility. Pt. has been doing some ROM exercises on her own. Pt. reports having 2/10 pain currently. Pt. denies fever and no chills. Pt. is hopeful to increase RLE strength in order to get back to all recreational activities without limiations. History of CVA with R sided weakness, TKA x3 on RLE, most recent in 2018. - Pain R ankle Pain Intensity (Out of 10): 2 Pain Intensity Range: 0, 4 - Objective POSTURE: Pt. has flexed posture, rounded shoulders. Pt. has increased wt. shift to L side. PALPATION: Pt. has heeling incision, she does have an opening at distal incision, non tunneling in appearance and minimal redness around incision, but that fact that it is not full closed at this point in time concerns me. Pt. has reduced sensation in RLE, most likely due to previous CVA. NEURO: Decreased sensation to light touch on RLE, lightle due to CVA. Normal DTR of BLEs. ROM: R knee- 0-4-110deg. R ankle- DF 2 deg, PF 30deg, INV 10deg, EVR 10deg. No pain with ROM testing. Tight in her HS as well. MMT: LLE- 5/5 throughout, except 4/5 hip flexion and abd. RLE- ankle- DF 4-/5, PF 4+/5, INV 4/5, EVR 4/5; knee- ext 3-/5, flexion 4/5; hip- flexion 3/5, abd 3/5. GAIT: Pt. ambulates with FWW with CAM boot. Pt. is very methodical with her gait pattern. Heavy use of FWW. Pt. appears to be applying a decent amount of wt to her RLE (no pain reported). pt. walking ~100' and was very fatigued. - Goals Goal 1:: LTG: Pt. to be I with HEP. Goal Time Frame: 4-6 Weeks Goal 2:: STG: Pt. to have full ROM of R ankle without increase in symptoms. Goal Time Frame: 2-4 Weeks Goal 3:: LTG: Pt. to ambulate with FWW vs LRD with normal pattern for community level distances. Goal Time Frame: 4-6 Weeks Goal 4:: LTG: Pt. to have increased strength of RLE including ankle and knee musculature to at least 4/5 throughout allowing for increased stability with gait. Goal Time Frame: 4-6 Weeks Goal 5:: LTG: Pt. to walk without CAM boot without increase in symptoms. Goal Time Frame: 4-6 Weeks - Rehabilitation Potential Physical Therapy Diagnosis: Pt. has signs and symptoms consistent with R nondisplaced fx of talus, and displaced bimalleolar fx of RLE. Pt. has subsequent hypombility, weakness, difficulty with gait and increased pain. Pt. renner mared weakness in her RLE partially from her R sided weakness after her CVA, recent R TKA revision and recent R ankle surgery. Pt. would benefit from PT to work on strength and ROM of her ankle and knee to increase stability and tolerance to functional mobility. Rehabilitation Potential: Good - Anticipated Interventions Patient/Client Instruction: Educate patient on: Condition, Plan of Care, Risk Factors, Benefits of Fitness Program For the Purpose of:: To improve decision making, To facilitate caregiver knowledge, To improve self management, To prevent re-injury, To improve ability to perform tasks related to life management, To improve tolerance to ADL's Therapeutic Exercise to Include: Strength training, Power training, Balance training, Postural training, Flexibilty training, Gait and locomotor training, Passive ROM, Active ROM For the Purpose of:: To decrease pain, To increase ROM, To improve nutrient delivery to tissue, To increase oxygenation perfusion, To improve muscle perfo rmance and motor function, To improve ability to perform ADL's, To improve gait and locomotor functions, To improve health of tissue, To decrease soft tissue restriction, To increase flexibility/ROM, To improve endurance, To improve balance, To improve safety with gait Cryotherapy (ice pack, ice massage): Yes For the Purpose of:: To decrease pain, To decrease swelling/inflammation Thank you for the opportunity to evaluate your patient. For Medicare and Medicare HMO plans, please review the plan of care and approve it. It will need to be FAXED BACK to us at [phone] for Medicare purposes. For Medicare only, by signing this I certify the plan of care. Please let me know if there are questions or concerns regarding this plan of care. Physician Signature: Date:
--- NOTE | 2019-10-07 10:50 | HP.PT.NRP ---
MACKENZIE AKHTAR was seen in my office for initial evaluation on 06/18/19. The following Plan of Care was established for this patient: Initial Frequency: 2-3x /Week Initial Duration: 4-6 Weeks Patient/Client Instruction: Educate patient on: Condition, Plan of Care, Risk Factors, Benefits of Fitness Program For the Purpose of:: To improve decision making, To facilitate caregiver knowledge, To improve self management, To prevent re-injury, To improve ability to perform tasks related to life management, To improve tolerance to ADL's Therapeutic Exercise to Include: Strength training, Power training, Balance training, Postural training, Flexibilty training, Gait and locomotor training, Passive ROM, Active ROM For the Purpose of:: To decrease pain, To increase ROM, To improve nutrient delivery to tissue, To increase oxygenation perfusion, To improve muscle performance and motor function, To improve ability to perform ADL's, To improve gait and locomotor functions, To improve health of tissue, To decrease soft tissue restriction, To increase flexibility/ROM, To improve endurance, To improve balance, To improve safety with gait Cryotherapy (ice pack, ice massage): Yes For the Purpose of:: To decrease pain, To decrease swelling/inflammation This patient was last seen in our office 07/10/19. Pertinent comments regarding their Physical therapy will appear below: Pt. was seen for her bi malleolar fx. Pt. was treated wtih ROM and progressive strenthening. Pt. has not been seen in several months and will be DC from PT at this point in time. At this point I will be discontinuing this patient from physical therapy. I would be happy to see this patient again in the future if found appropriate by the physician. Thank you! Khoi Mandel, RADHAT
== END 2019-07-10 19:00 | disposition home or self-care (01) ==
LOC: PT 14:30
PROVIDERS: PCP Family Medicine; Referring Provider Podiatrist Foot & Ankle Surgery; Visit Provider Podiatrist Foot & Ankle Surgery
DX: S92.144D Nondisplaced dome fracture of right talus, subsequent encounter for fracture with routine healing (principal); S82.841D Displaced bimalleolar fracture of right lower leg, subsequent encounter for closed fracture with routine healing
CPT/HCPCS: 97016; 97110; 97161

== ENCOUNTER → 2019-07-28 | Outpatient (CLI) | payer MEDICARE, OTHER, SELFPAY ==
[2019-07-28 18:12] LABS: Anion Gap 6 (5-15); BUN 17 mg/dL (7-18); BUN/Creat Ratio 18.9 RATIO (10-20); Calcium,Total 9.8 mg/dL (8.5-10.1); Chloride 108 mmol/L (98-107); Cholesterol 156 mg/dL (200); EST Glomerular Filtration Rate 67 mL/min (>60); Est Glom Filt Rate - Afr Amer 81 mL/min (>60); Glucose 96 mg/dL (74-106); High Density Lipoprotein 58 mg/dL; Potassium 4.3 mmol/L (3.5-5.1); Sodium Level 140 mmol/L (136-145); Triglycerides 177 mg/dL; Very Low Density Lipoprotein 35 mg/dL (5-40)
== END | disposition home or self-care (01) ==
LOC: MTLAB 14:03
PROVIDERS: PCP Family Medicine; Referring Provider Family Medicine; Visit Provider Family Medicine
DX: I10 Essential (primary) hypertension (principal)
CPT/HCPCS: 36415; 80048; 80061

== ENCOUNTER → 2019-10-20 | Outpatient (CLI) | payer MEDICARE, OTHER, SELFPAY ==
--- NOTE | 2019-10-20 16:52 | RAD_ITS ---
STUDY: X-RAY LEFT FOOT, ALL OF THE TOES REASON FOR EXAM: Female, 63 years old. pain in toes, no injury TECHNIQUE: 3 views of the toes were obtained. COMPARISON: None. FINDINGS: Normal visualized metatarsals. There is a hallux valgus deformity. Otherwise normal metatarsophalangeal (M.T.P) joints. Normal interphalangeal joints. Normal phalanges and interphalangeal joints. The soft tissue structures are unremarkable. RAD/Toe(s) Min 2 Views IMPRESSION: Hallux longus deformity. Otherwise, normal examination. Electronically Signed: Felice Tinoco MD at 7:57 EDT , Service support ,
--- NOTE | 2019-10-20 16:53 | RAD_ITS ---
STUDY: X-RAY RIGHT FOOT, ALL THE TOES REASON FOR EXAM: Female, 63 years old. pain in toes, no injury TECHNIQUE: 3 view(s) of the toes were obtained. COMPARISON: X-ray of the first toe 06/11/2014. FINDINGS: Normal visualized metatarsals. Normal metatarsophalangeal (M.T.P) joints. Normal interphalangeal joints. Normal phalanges and interphalangeal joints. Previously demonstrated fractures of the first toe have healed in adequate alignment.. There is nonspecific soft tissue swelling. RAD/Toe(s) Min 2 Views IMPRESSION: No demonstrated acute fracture, dislocation, or destructive osseous lesion. Electronically Signed: Felice Tinoco MD at 7:54 EDT , Service support ,
[2019-10-20 20:38] LABS: Anion Gap 9 (5-15); BUN 18 mg/dL (7-18); BUN/Creat Ratio 21.2 RATIO (10-20); Calcium,Total 9.8 mg/dL (8.5-10.1); Chloride 105 mmol/L (98-107); Creatinine, Serum 0.85 mg/dL (0.55-1.02); EST Glomerular Filtration Rate 71 mL/min (>60); Est Glom Filt Rate - Afr Amer 86 mL/min (>60); Glucose 93 mg/dL (74-106); Potassium 4.1 mmol/L (3.5-5.1); Sodium Level 140 mmol/L (136-145); Uric Acid 6.5 mg/dL (2.6-6.0)
== END | disposition home or self-care (01) ==
LOC: MTLAB 16:51
PROVIDERS: PCP Family Medicine; Referring Provider Family Medicine; Visit Provider Family Medicine
DX: E53.8 Deficiency of other specified B group vitamins (principal); M79.675 Pain in left toe(s); M79.674 Pain in right toe(s)
CPT/HCPCS: 36415; 73660; 80048; 82746; 84550

== ENCOUNTER → 2019-10-24 | Outpatient (CLI) | payer MEDICARE, OTHER, SELFPAY ==
[2019-10-24 15:27] LABS: AST(SGOT) 21 U/L (15-37); Alanine Aminotransfer ALT/SGPT 30 U/L (13-56); Albumin, Serum 3.9 g/dL (3.2-5.0); Alkaline Phosphatase 168 U/L (45-117); Anion Gap 8 (5-15); BUN 18 mg/dL (7-18); BUN/Creat Ratio 18.4 RATIO (10-20); Calcium,Total 9.5 mg/dL (8.5-10.1); Chloride 112 mmol/L (98-107); Creatinine, Serum 0.98 mg/dL (0.55-1.02); EST Glomerular Filtration Rate 61 mL/min (>60); Est Glom Filt Rate - Afr Amer 73 mL/min (>60); Globulin 3.8 g/dL (2.2-4.2); Glucose 116 mg/dL (74-106); Iron 112 ug/dL (50-170); Iron Binding Capacity,Total 437 ug/dL (250-450); PERCENT IRON SATURATION 25.6 % (15.0-55.0); Protein, Total 7.7 g/dL (6.4-8.2); Sodium Level 142 mmol/L (136-145)
[2019-10-24 15:39] LABS: Hemoglobin A1c 6.4 % (3.8-5.6)
== END | disposition home or self-care (01) ==
LOC: MTLAB 11:54
PROVIDERS: PCP Family Medicine; Referring Provider Family Medicine; Visit Provider Family Medicine
DX: I10 Essential (primary) hypertension (principal); D50.9 Iron deficiency anemia, unspecified; E11.9 Type 2 diabetes mellitus without complications
CPT/HCPCS: 36415; 80053; 83036; 83540; 83550

== ENCOUNTER → 2019-11-13 14:28 | Outpatient (CLI) | payer MEDICARE, OTHER, SELFPAY ==
--- NOTE | 2019-11-13 14:31 | RAD_ITS ---
STUDY: X-RAY - LUMBAR SPINE REASON FOR EXAM: Female, 64 years old. Lower back pain. Left leg pain. TECHNIQUE: 3 view(s) of the lumbar spine were obtained. COMPARISON: None FINDINGS: Normal lumbar lordosis. There is a minimal dextroscoliosis with the convexity L2. There is a normal alignment of the vertebrae. There is multilevel endplate spondylosis of the lumbar vertebrae. There is multi-level degenerative disc disease with multi-level disc space narrowing. Diffuse degenerative facet disease. There is no evidence of acute fracture or loss of vertebral axial height. There is atherosclerotic calcification of the abdominal aorta without a demonstrated aneurysm. Cholecystectomy clips are seen in the right upper quadrant. RAD/Lumbar Spine 2 or 3 Views IMPRESSION: Degenerative changes of the lumbar spine without acute fracture or subluxation. Electronically Signed: Francis Betancur DO at 20:31 EDT Tel [phone], Service support ,
== END ==
PROVIDERS: PCP Family Medicine; Referring Provider Anesthesiology Pain Medicine; Visit Provider Anesthesiology Pain Medicine
DX: M54.5 Low back pain (principal); M79.605 Pain in left leg
CPT/HCPCS: 72100; 97110

== ENCOUNTER 2019-12-04 13:00 | Outpatient (RCR) | payer MEDICARE, OTHER, SELFPAY ==
--- NOTE | 2019-11-04 14:33 | HP.PTEVAL ---
Patient's Visit Information MACKENZIE AKHTAR is a 64 year old F referred to Physical Therapy by Dr. Sudheer Lion MD with a diagnosis of Right Knee. Date of Evaluation: 10/01/19 Physical Therapist: Daria De La O DPT - Visit Plan Frequency: 2x /Week Duration: 4 Weeks Plan: *f/u with supervising PT next appt (unless able to get in for 11/02 appt). Would recommend continued AT at this time. Progressing to I pool program at this facility. *Aquatic- focus on LE and core strength/stabilization and functional mobility- may need to use chair to enter water - Subjective Has had 3 knee surgeries-right- last one was fall of [address] Osborn which has left her unable to walk. Ankle surgery spring 2018 also on the right side. CVA 2005 which also affected the right side significantly. She can work in the kitchen for 10-15 minutes then she needs to be able to sit due to back pain and the left feels like its going to buckle. Needs to sit for no less than 5 min before she can move again. Uses a FWW in her home- single story home with 4 stairs to enter- has help from her - hand rail on single side- non recip- acts as railing. Able to perform all transfer I but nothing is easy. Does have some pain in the leg. Her feet hurt her the most- depending her ankle bothers her as well. Pain comes and goes. Worst: 2/10. Most of the time she is painfree. Dr. Stover pain mgmt that handles her pain medications. Has falls-most recent was today- normally falls backwards or sideways. 3-4 falls a week. Generally she can get herself back up if she has something to get herself back up. Goals: wants to be able to walk without assistance, go up/down stairs, travel. Dr. Osborn referred her to [facility] at the end of the month. Is currently able to drive- breaks with her left foot. Sleep: disturbed- foot pain does wake her and hard to get comfortable- side sleeper PMHx: HTN, DM, 2 stents, cholesterol, anxiety, pain. Meds: see list - Pain RLE Pain Intensity (Out of 10): Unrated Comment: knee - Objective Posture: FH, RS, increased kyphosis. Gait: antalgic- uses roller knee scooter for long distance ambulation and community. at home she uses a FWW- poor heel/toe pattern and decreased kwasi. Unable to place heel on floor and propel. Stairs: nonrecip. SLS: weight shift unable. Balance: poor. ROM: Ankle: WFL, Knee: 20-110 degrees Hip: WNL. Strength: Ankle: 4-/5, Knee: quad set visible SLR: severe extension lag, Hip: 4/5 throughout Core: fair plus - Goals Goal 1:: Patient will be I with HEP and progression Goal Time Frame: 4-6 Weeks Goal 2:: Patient will ambulate >300 feet with a normalized gait pattern and LRD Goal Time Frame: 4-6 Weeks Goal 3:: Patient will demo 0 degrees of extension of the right knee Goal Time Frame: 4-6 Weeks Goal 4:: Patient will report no falls for 1 week Goal Time Frame: 4-6 Weeks - Rehabilitation Potential Physical Therapy Diagnosis: Patient presents with hypmobility- she has decreased ROM, strength, flex and muscular endurance leading to poor balance and diminished ability to perform ADL's. - Anticipated Interventions Patient/Client Instruction: Educate patient on: Benefits of Fitness Program Therapeutic Exercise to Include: Strength training, Endurance training, Agility training, Body mechanics, Postural training, Flexibilty training, Gait and locomotor training, Neuromotor development, In an aquatic setting, Dynamic Lumbar Stabilization Thank you for the opportunity to evaluate your patient. For Medicare and Medicare HMO plans, please review the plan of care and approve it. It will need to be FAXED BACK to us at [phone] for Medicare purposes. For Medicare only, by signing this I certify the plan of care. Please let me know if there are questions or concerns regarding this plan of care. Physician Signature: Date:
--- NOTE | 2019-11-04 15:16 | HP.PTREVAL_ITS ---
Dr. Sudheer Lion MD, It has been my pleasure to treat MACKENZIE AKHTAR over the last 7 visits for Right Knee. Please see the progress note below for an update on the physical therapy plan of care! Subjective: Joffre like the walking was not super helpful- feels that she has gained a little bit of strength and complains the next day from stiffness- but does not feel that she she has gained a lot of motion or balance. Feels that the land based exercises of Nustep, leg press and being stretched by a PT. No pain at this time just still not functional. Dr Del Cid [facility] in [place] - Objective/Function: Posture: FH, RS, increased kyphosis. Gait: antalgic- uses roller knee scooter for long distance ambulation and community. at home she uses a FWW- poor heel/toe pattern and decreased kwasi. Unable to place heel on floor and propel. Stairs: nonrecip. SLS: weight shift unable. Balance: poor. ROM: Ankle: WFL, Knee: 20-110 degrees Hip: WNL. Strength: Ankle: 4-/5, Knee: quad set visible SLR: severe extension lag, Hip: 4/5 throughout Core: fair plus. No significant changes since IE Plan Plan: 2x a week for 4 weeks with progression to land- focus on LE and core strength/stabilziation and balance- manual stretching each visit to right knee extension Goals Goal 1:: Patient will be I with HEP and progression Goal Time Frame: 4-6 Weeks Goal 2:: Patient will ambulate >300 feet with a normalized gait pattern and LRD Goal Time Frame: 4-6 Weeks Goal 3:: Patient will demo 0 degrees of extension of the right knee Goal Time Frame: 4-6 Weeks Goal 4:: Patient will report no falls for 1 week Goal Time Frame: 4-6 Weeks Anticipated Interventions Patient/Client Instruction: Educate patient on: Benefits of Fitness Program Therapeutic Exercise to Include: Strength training, Endurance training, Agility training, Body mechanics, Postural training, Flexibilty training, Gait and locomotor training, Neuromotor development, In an aquatic setting, Dynamic Lumbar Stabilization Please do not hesitate to contact me at [phone] by phone or if you have questions or concerns regarding this new plan of care! Sincerely, Daria De La O RADHAT
--- NOTE | 2020-01-05 16:34 | HP.PT.NRP ---
MACKENZIE AKHTAR was seen in my office for initial evaluation on 10/01/19. The following Plan of Care was established for this patient: Initial Frequency: 2x /Week Initial Duration: 4 Weeks Patient/Client Instruction: Educate patient on: Benefits of Fitness Program Therapeutic Exercise to Include: Strength training, Endurance training, Agility training, Body mechanics, Postural training, Flexibilty training, Gait and locomotor training, Neuromotor development, In an aquatic setting, Dynamic Lumbar Stabilization This patient was last seen in our office . Pertinent comments regarding their Physical therapy will appear below: Patient has not returned to PT in over 4 weeks- appropriate for d/c and return to MD for further evaluation as needed. At this point I will be discontinuing this patient from physical therapy. I would be happy to see this patient again in the future if found appropriate by the physician. Thank you! RADHA WeaverT
== END 2019-12-04 19:00 | disposition home or self-care (01) ==
LOC: PT 13:00
PROVIDERS: PCP Family Medicine; Referring Provider Family Medicine; Visit Provider Family Medicine
DX: Z91.81 History of falling (principal)
CPT/HCPCS: 97110; 97113; 97116; 97140; 97162; 97164

== ENCOUNTER → 2020-01-16 | Outpatient (CLI) | payer MEDICARE, OTHER, SELFPAY ==
[2020-01-16 18:15] LABS: Anion Gap 9 (5-15); BUN 22 mg/dL (7-18); BUN/Creat Ratio 19.5 RATIO (10-20); Calcium,Total 10.1 mg/dL (8.5-10.1); Chloride 107 mmol/L (98-107); Creatinine, Serum 1.13 mg/dL (0.55-1.02); EST Glomerular Filtration Rate 51 mL/min (>60); Est Glom Filt Rate - Afr Amer 62 mL/min (>60); Glucose 133 mg/dL (74-106); Magnesium 2.3 mg/dL (1.6-2.6); Sodium Level 139 mmol/L (136-145)
[2020-01-16 18:22] LABS: Insulin 106.5 mU/L (2.6-37.6)
[2020-01-16 18:26] LABS: Hemoglobin A1c 6.5 % (3.8-5.6)
== END | disposition home or self-care (01) ==
LOC: MTLAB 15:06
PROVIDERS: PCP Family Medicine; Referring Provider Family Medicine; Visit Provider Family Medicine
DX: E11.9 Type 2 diabetes mellitus without complications (principal)
CPT/HCPCS: 36415; 80048; 83036; 83525; 83735

== ENCOUNTER → 2020-03-02 14:37 | Outpatient (CLI) | payer MEDICARE, OTHER, SELFPAY | PROVIDERS: PCP Family Medicine; Referring Provider Family Medicine; Visit Provider Family Medicine | DX: R19.7 Diarrhea, unspecified (principal) | CPT/HCPCS: 87177; 87209; 87493; 87506 ==

== ENCOUNTER → 2020-03-05 | Outpatient (CLI) | payer MEDICARE, OTHER, SELFPAY | END | disposition home or self-care (01) | LOC: LABSPEC 13:41 | PROVIDERS: PCP Family Medicine; Referring Provider Family Medicine; Visit Provider Family Medicine | DX: R19.7 Diarrhea, unspecified (principal) | CPT/HCPCS: 87177; 87209; 87493; 87506 ==

== ENCOUNTER → 2020-03-15 11:18 | Outpatient (CLI) | payer MEDICARE, OTHER, SELFPAY ==
--- NOTE | 2020-03-15 12:20 | NEURO ---
NCS and/or EMG Patient Report Ordering Doctor: Manny Sanchez DATE OF SERVICE: 03/15/20 Indication: Right lower extremity weakness, numbness on the lateral leg, gait imbalance, frequent falls. History of multiple right knee surgeries, right ankle surgery, prior ischemic stroke. Evaluate for peripheral nerve injury. Findings: Nerve conduction studies were performed in the right lower extremity. Some comparisons were performed in the left lower extremity. The right peroneal motor study recording the extensor digitorum brevis showed a reduced amplitude, prolonged distal latency and slowed conduction velocity. Proximal nerve responses could not be obtained. The right tibial motor study recording the abductor hallucis brevis showed a reduced amplitude, prolonged distal latency and slowed conduction velocity. The left tibial motor study recording the abductor pollicis brevis showed a reduced amplitude which was symmetric with the right. Right sural sensory response was absent. Right superficial peroneal sensory response was absent. Left sural sensory response was absent. Needle EMG of the right lower extremity muscles was performed. The paraspinal muscles were not examined secondary to the patient's treatment with dual antiplatelet medications. Active denervation was present the extensor houses brevis, tibialis anterior, and medial gastrocnemius muscles. Distal motor units were large amplitude, long duration and mildly polyphasic with reduced recruitment. Impression: This is an abnormal study. 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 A concurrent right lumbosacral radiculopathy cannot be entirely excluded due to multiple limitations of the study including: treatment with dual antiplatelet medications, habitus, and diffuse absence of sensory responses. Howard Zurita D.O.
== END ==
PROVIDERS: PCP Family Medicine; Referring Provider Podiatrist Foot & Ankle Surgery; Visit Provider Podiatrist Foot & Ankle Surgery
DX: M79.674 Pain in right toe(s) (principal); M79.675 Pain in left toe(s)
CPT/HCPCS: 95885; 95909

== ENCOUNTER → 2020-04-27 12:52 | Outpatient (CLI) | payer MEDICARE, OTHER, SELFPAY ==
[2020-04-27 15:41] LABS: Absolute Neutrophil Count 4.3 X10^3/uL (2.0-7.7); Basophil# 0.07 X10^3/uL; Basophil% 0.9 % (0-1); Eosinophil# 0.18 X10^3/uL; Eosinophils% 2.4 % (0-5); Hemoglobin 12.9 g/dL (12.0-15.0); Lymphocyte % 31.7 % (19-41); Mean Corp Hgb Conc 31.5 g/dL (32-36); Mean Corpuscular Hgb 28.5 pg (27.0-32.0); Mean Corpuscular Volume 90.7 fL (81-99); Mean Platelet Vol. 10.8 fl (6.2-12.0); Monocyte% 7.9 % (0-10); NRBC Flagged by Analyzer 0 % (0-5); Platelet Count 278 K/mm3 (150-450); RBC Distribution Width CV 13.3 % (11.6-14.6); RBC Distribution Width SD 44.8 fl (35.1-43.9); Red Blood Count 4.52 M/mm3 (4.2-5.4); White Blood Count 7.6 K/mm3 (4.4-11.0)
== END ==
PROVIDERS: PCP Family Medicine; Referring Provider Family Medicine; Visit Provider Family Medicine
DX: R19.7 Diarrhea, unspecified (principal)
CPT/HCPCS: 36415; 82274; 85025

== ENCOUNTER → 2020-05-17 07:03 | Outpatient (CLI) | payer MEDICARE, OTHER, SELFPAY ==
--- NOTE | 2020-05-17 16:20 | STRESSREP ---
Stress Test Report Pharmacologic myocardial perfusion stress test. 63-year-old man with a history of previous PCI. Stress protocol: Resting EKG demonstrates sinus rhythm with a rate of 63 bpm normal intervals are noted resting blood pressure is 144/98 mmHg. 0.4 mg of regadenoson was infused per usual protocol followed by rapid intravenous saline flush injection continuous EKG monitoring was performed. The maximum heart rate was 76 bpm which was 49% of max impacted heart rate the maximum workload was 1 metabolic equivalent. At rest there were no ST or T wave changes noted to suggest abnormal flow reserve at peak infusion nonspecific ST-T wave changes were noted to suggest abnormal flow reserve. The peak blood pressure was 158/82 mmHg. Myocardial perfusion protocol. 14.7 mCi of technetium 99m sestamibi was injected at rest. 0.4 mg of regadenoson was infused per usual protocol. At peak infusion 44.5 mCi of technetium 99m sestamibi was injected stress images were obtained stress and rest images were reconstructed and compared in the short axis vertical long and horizontal long axis. Gated images were also obtained Perfusion SPECT analysis: Review of the stress images demonstrate normal uptake of tracer noted in all areas of the myocardium the resting images similarly demonstrate normal uptake of tracer noted in all areas of the myocardium. No reversibility is noted to suggest ischemia. No previous infarct is noted. Gated SPECT analysis: The gated ejection fraction is noted to be 82%. Conclusion: Normal pharmacologic myocardial perfusion stress test. Preserved ejection fraction.
== END ==
PROVIDERS: PCP Family Medicine
DX: R94.31 Abnormal electrocardiogram [ECG] [EKG] (principal)
CPT/HCPCS: 78452; 93017; A9500; A4216; J2785

== ENCOUNTER 2020-06-02 20:08 | Emergency (ER) | payer MEDICARE, OTHER, SELFPAY ==
[2020-06-02 20:08] VITALS: BP 157/107; PULSE 84; RESP 18; TEMP 36.2; O2SAT 97; BMI 45.7
--- NOTE | 2020-06-02 21:28 | ED.VISSUMM ---
- ER Visit Summary Date of Service: 06/02/20 Chief Complaint: Right knee pain and anxiety History of Present Illness: The patient is a [address] Sin. Patient reports that she had a right total knee replacement [address] Fink at [facility]. She states that this was actually her fourth right knee replacement. She was discharged from the hospital the next day. States in the hospital she was taking 10 mg of Percocet every 4 hours. Since going home she is taking 5 mg every 4 to 6. She reports that she has a stabbing, burning pain is 10 out of 10 with movement 6 out of 10 at rest. Patient also reports that she has anxiety and typically takes 0.5 mg of Xanax every morning and 1 mg every afternoon. She took an extra half a milligram at 3:00 and states that she still feels very anxious. Review of systems: General: No fever, chills, cold sweats. Cardiovascular: No chest pain, palpitations. Respiratory: No cough, shortness of breath, dyspnea on exertion. Gastrointestinal: No abdominal pain, nausea, vomiting, diarrhea, melena, or hematochezia. Genitourinary: No dysuria, frequency, hematuria. Skin: No rash. Neuro: No headache, numbness, weakness. Physical Examination: Vitals: Stable. Afebrile. General: Well-nourished and well-developed. Head: Normocephalic atraumatic. Neck: Supple, no lymphadenopathy. No JVD. Nontender. Cardiovascular: Regular rate and rhythm. No murmurs. Respiratory: No respiratory distress. Clear to auscultation bilaterally. Abdominal: Soft, nontender, nondistended, normal bowel sounds. No guarding, rebound, or peritoneal signs. Back: Nontender. Extremities: Incision over the anterior surface of her right knee is clean, dry, intact. It is closed with Dermabond. There is no erythema or induration. She has no appreciable warmth to her joint. She has no pain with short arc movements. She is a 1+ dorsalis pedis pulse bilaterally, no edema. Skin: Normal color, no rash. Neurologic: Alert and oriented ?3. Cranial nerves II through XII are intact. Normal strength and sensation. Psych: Normal affect. Emergency Department Course and Treatment: Patient is just hoping for pain control. She was given dose of morphine IM Zofran and Xanax p.o. Treatment Plan: Patient be discharged with instructions to contact Dr. Fink tomorrow to let him know how severe her pain is. She will be given a prescription for an additional 12 Percocet. Return to the emergency department for any worsening symptoms. Disposition: To home in improved and stable condition. Impression: 1. 8 days status post right total knee arthroplasty. 2. Anxiety. 3. Coagulopathy on Eliquis. This note was generated with [employer] dictation software. It may contain incorrect words, spelling, and punctuation that were not noted in review of the chart prior to signing ED Disposition - Plan for ED Patient: Instructions: ED Post Op Wound Check, Pain Prescriptions: Oxycodone HCl/Acetaminophen [Percocet 5/325] 1 tablet PO Q6H PRN PRN 3 Days #12 tablet PRN Reason: Pain Additional Instructions: Call Dr. Fink tomorrow and let them know how severe your pain is and see if he wants to see you sooner or change your medications.
[2020-06-02] MEDS: morphine 8 MG/ML Syringe IM (21:29)
[2020-06-02] MEDS: ALPRAZolam 0.5 MG Tablet 1 MG PO (21:29)
[2020-06-02] MEDS: Ondansetron ODT 4 MG Tablet PO (21:29)
[2020-06-02 22:32] VITALS: BP 143/66; PULSE 61; RESP 16
== END 2020-06-02 22:33 | disposition home or self-care (01) ==
LOC: ED 21:34
PROVIDERS: Emergency Provider Emergency Medicine; PCP Family Medicine
DX: F41.9 Anxiety disorder, unspecified (principal); Z98.890 Other specified postprocedural states; Z79.02 Long term (current) use of antithrombotics/antiplatelets; Z96.651 Presence of right artificial knee joint; I25.10 Atherosclerotic heart disease of native coronary artery without angina pectoris; E11.9 Type 2 diabetes mellitus without complications; I10 Essential (primary) hypertension; Z86.73 Personal history of transient ischemic attack (TIA), and cerebral infarction without residual deficits
CPT/HCPCS: 96372; 99283

== ENCOUNTER 2020-06-06 13:46 | Emergency (ER) | payer MEDICARE, OTHER, SELFPAY ==
[2020-06-06 13:48] VITALS: BP 115/58; PULSE 53; RESP 16; TEMP 36.2; O2SAT 95; BMI 45.7
--- NOTE | 2020-06-06 14:50 | ED.DCSUM_ITS ---
- ER Visit Summary Date of Service: 06/06/20 Chief Complaint: Postoperative bleeding History of Present Illness: The patient is a 64 F who presents with bleeding from her right knee incision. Patient states this began again today. Patient had a right total knee replacement in [place]. Patient states her knee brace has been falling down intermittently. Patient states that when she goes to the restroom and sits on the toilet, she bends her knee and the bleeding starts at that time. Patient denies any trauma or injury since the surgery. Patient denies any paresthesias or weakness. Patient denies any fevers or chills. Patient denies any purulent drainage. Physical Examination: Vital signs are stable. Patient is afebrile. Patient is in no acute distress. Musculoskeletal exam reveals mild tenderness over the right knee. The incision is healing well. There is no active bleeding noted at this time. There are no signs of infection. There is no discharge or drainage. Range of motion was limited in all motions. Sensation was intact to light touch bilaterally in the lower extremities. Test Results: CBC and basic metabolic profile were obtained and were essentially within normal limits. PT with INR and PTT are within normal limits. Emergency Department Course and Treatment: The dressing was replaced. There is no active bleeding on exam. Patient's hemoglobin and hematocrit are stable. A bulky dressing was applied. Patient was instructed to follow-up with her orthopedic surgeon in 2 to 3 days. Patient was instructed to keep the knee straight. Patient was instructed to return if worse in any way. Patient and spouse understood and were agreeable with the plan. All questions were answered. Disposition: Discharge home Impression: 1. Postoperative bleeding This note was generated with [employer] dictation software. It may contain incorrect words, spelling, and punctuation that were not noted in review of the chart prior to signing ED Disposition - Plan for ED Patient: Disposition: Home or Assisted Living Diagnosis: Postoperative bleeding from incision Instructions: ED Post Op Wound Check, Bleeding Referrals: Sudheer Lion MD [Primary Care Provider] - 5-7 Days Additional Instructions: Follow-up with your orthopedic surgeon in 2 to 3 days.
--- NOTE | 2020-06-06 15:18 | ED.RN ---
iv restarted but pt moving legs all around in bed and when asked stated, shes very anxious pt instructed that if moving that much may hurt incision more. 4x4 with pink/rust drng obs to breakthrough. labs sent. pt and report, 'we told the drBrandyn that this would happen.
[2020-06-06 15:19] LABS: Absolute Lymphocyte Count 2.83 X10^3/uL (0.83-4.51); Absolute Neutrophil Count 4.1 X10^3/uL (2.0-7.7); Basophil# 0.13 X10^3/uL; Basophil% 1.5 % (0-1); Eosinophil# 0.77 X10^3/uL; Eosinophils% 9.1 % (0-5); Hematocrit 32.6 % (37-47); Hemoglobin 10.4 g/dL (12.0-15.0); Lymphocyte # 2.83 X10^3/ul (4.0); Lymphocyte % 33.3 % (19-41); Mean Corp Hgb Conc 31.9 g/dL (32-36); Mean Corpuscular Hgb 30.1 pg (27.0-32.0); Mean Corpuscular Volume 94.2 fL (81-99); Mean Platelet Vol. 10.1 fl (6.2-12.0); Monocyte# 0.64 X10^3/uL; Monocyte% 7.5 % (0-10); NRBC Flagged by Analyzer 0 % (0-5); Neutrophil % 48.2 % (47-70); Platelet Count 346 K/mm3 (150-450); RBC Distribution Width CV 14.3 % (11.6-14.6); Red Blood Count 3.46 M/mm3 (4.2-5.4); White Blood Count 8.5 K/mm3 (4.4-11.0)
[2020-06-06 15:27] LABS: International Normalized Ratio 1.3; Prothrombin Time (Protime)PT. 15.5 SECONDS (11.7-14.9)
[2020-06-06 15:29] LABS: Partial Thromboplast Time 27.2 Seconds (24.1-36.2)
[2020-06-06 15:42] LABS: Anion Gap 8 (5-15); BUN 18 mg/dL (7-18); BUN/Creat Ratio 14.4 RATIO (10-20); Calcium,Total 9.2 mg/dL (8.5-10.1); Chloride 105 mmol/L (98-107); Creatinine, Serum 1.25 mg/dL (0.55-1.02); EST Glomerular Filtration Rate 46 mL/min (>60); Est Glom Filt Rate - Afr Amer 55 mL/min (>60); Estimated Creatinine Clearance 35.01 ml/min; Glucose 120 mg/dL (74-106); Potassium 5.1 mmol/L (3.5-5.1); Sodium Level 140 mmol/L (136-145)
== END 2020-06-06 16:36 | disposition home or self-care (01) ==
PROVIDERS: Emergency Provider Emergency Medicine; PCP Family Medicine
DX: L76.22 Postprocedural hemorrhage of skin and subcutaneous tissue following other procedure (principal); Z96.651 Presence of right artificial knee joint; Z86.73 Personal history of transient ischemic attack (TIA), and cerebral infarction without residual deficits
CPT/HCPCS: 80048; 85025; 85610; 85730; 99284; A4216

== ENCOUNTER → 2020-06-16 14:03 | Outpatient (CLI) | payer MEDICARE, OTHER, SELFPAY ==
[2020-06-06 13:48] VITALS: BMI 45.7
[2020-06-16 18:23] LABS: CRP < 2.90 mg/L (0.0-3.0); Cholesterol 160 mg/dL (200); High Density Lipoprotein 53 mg/dL; Triglycerides 314 mg/dL; Very Low Density Lipoprotein 63 mg/dL (5-40)
[2020-06-18 20:08] LABS: Endomysial Antibody IgA Negative (Negative)
[2020-06-18 21:46] LABS: Immunoglobulin A 108 mg/dL (87-352); t-Transglutaminase IgA <2 U/mL (0-3)
== END ==
PROVIDERS: PCP Family Medicine; Referring Provider Family Medicine; Visit Provider Family Medicine
DX: F41.9 Anxiety disorder, unspecified (principal); R19.7 Diarrhea, unspecified
CPT/HCPCS: 36415; 80061; 82784; 83516; 86140; 86255

== ENCOUNTER → 2020-06-17 11:18 | Outpatient (CLI) | payer MEDICARE, OTHER, SELFPAY ==
[2020-06-17 10:13] VITALS: BMI 45.7
[2020-06-17 12:48] LABS: Vitamin B12 477 pg/mL (211-911)
[2020-06-17 13:03] LABS: Thyroid Stim Hormone (TSH) 3.26 uIU/mL (0.358-3.74)
[2020-06-18 16:09] LABS: Free Kappa Light Chains 19.7 mg/L (3.3-19.4); Free Lambda Light Chains 14.7 mg/L (5.7-26.3)
== END ==
PROVIDERS: PCP Family Medicine; Referring Provider Psychiatry & Neurology Neurology; Visit Provider Psychiatry & Neurology Neurology
DX: G62.9 Polyneuropathy, unspecified (principal); I10 Essential (primary) hypertension; R53.81 Other malaise
CPT/HCPCS: 36415; 82607; 82746; 83883; 84443

== ENCOUNTER 2020-06-22 16:51 | Emergency (ER) | payer MEDICARE, OTHER, SELFPAY ==
[2020-06-17 10:13] VITALS: BMI 45.7
[2020-06-22 16:52] VITALS: BP 158/70; PULSE 68; PULSE 69; RESP 16; TEMP 36.4; O2SAT 96; BMI 43.5
--- NOTE | 2020-06-22 17:23 | ED.DCSUM_ITS ---
History of Present Illness Chief Complaint: Wound Check Informant: Patient Narrative: 64-year-old female presents with concern for right knee wound draining. Patient had this knee replaced for the fourth time approximately 1 month ago in [place] by Dr. Fink. States that she has had a chronic issue with this wound draining. States it is have been rewrapped twice. States that there was tissue adhesive placed by the orthopedic surgeon. States that she is supposed to be wearing a knee immobilizer which she is not wearing because it does not fit appropriately. Is any fever, chills, pain. Denies any trauma. Past Medical History - Allergies and Home Meds Allergies/Adverse Reactions: Allergies ciprofloxacin [From Cipro] Allergy (Verified 06/17/20 10:10) Unknown escitalopram oxalate [From Lexapro] Allergy (Verified 06/17/20 10:10) Unknown heparin Allergy (Verified 06/17/20 10:10) Unknown mupirocin [From Bactroban] Allergy (Verified 06/17/20 10:10) Unknown trazodone Allergy (Verified 06/17/20 10:10) Unknown adhesive tape Adverse Reaction (Verified 06/17/20 10:10) Other Primary Care Physician: Sudheer Lion MD [Primary Care Provider] - Prior records reviewed: Yes Past Medical History: - - Pretension, stroke, diabetes, morbid obesity, coronary artery disease Surgical History: angioplasty - Stent., cholecystectomy, hysterectomy, total knee arthroplasty - June [address] Chua, tonsillectomy, - - Right knee arthroscopy. Lives: Spouse/ Significant Other Smoking Status: Never smoker Alcohol: None Drugs: None - Family History Maternal Family History: Family History (Last Reviewed 06/17/20 @ 10:12 by Pauline Rodgers) Mother CAD (coronary artery disease) Hypertension Father CAD (coronary artery disease) Brother Myocardial infarction Hypertension Sister Hypertension Other CVA (cerebral vascular accident) Family History: Reports: No pertinent history Paternal Family History: Family History (Last Reviewed 06/17/20 @ 10:12 by Pauline Rodgers) Mother CAD (coronary artery disease) Hypertension Father CAD (coronary artery disease) Brother Myocardial infarction Hypertension Sister Hypertension Other CVA (cerebral vascular accident) Family History: Reports: No pertinent history Review of Systems General: Denies: Chills, Fever, Sweats Eyes: Denies: Visual changes - bilaterally, Diplopia ENT: Denies: Rhinorrhea, Sore throat Cardiovascular: Denies: Chest pain, Palpitations Respiratory: Denies: Dyspnea, Cough, Dyspnea on exertion Gastrointestinal: Denies: Abdominal pain, Nausea, Vomiting, Diarrhea, Melena, Hematochezia Genitourinary: Denies: Dysuria, Hematuria, Frequency Musculoskeletal: Denies: Back pain, Extremity Pain Skin: Reports: Wounds. Denies: Rash Neurological: Denies: Headache, Weakness, Numbness Physical Exam Vital Signs/Narrative: Vital Signs Temp Pulse Resp BP Pulse Ox 06/22/20 16:52 97.5 F L 68 16 158/70 H 96 Inital Vital Signs reviewed: Yes General: Well nourished, Well developed, No Acute Distress Head: Normocephalic, Atraumatic Eyes: Perrl, EOMI ENT: Moist mucous membranes, No rhinorrhea Neck: Supple, Nontender Cardiovascular: Regular rate, Regular rhythm, No murmurs Respiratory: No distress, CTA bilaterally, Chest nontender Abdomen: Soft, Nontender, Nondistended, Normal bowel sounds Back: Nontender, Normal Inspection Extremities: Nontender, No edema Skin: Normal color, No rash, - - 0.5 cm area of dehiscence to the right knee. Serosanguineous drainage. Full range of motion. No surrounding cellulitis. No abscess formation. Neurological: Alert, Oriented x3, Cranial nerves II-XII grossly intact, Normal Strength, Normal Sensation Psychological: Normal affect, Normal Mood Diagnostic/Tx/Re-eval - Medical Decision Making Appears well and nontoxic. Vital signs within normal limits. Patient has dehiscence of her wound which is chronic in nature. Spoke with orthopedics on- call and they will see her in the clinic tomorrow. Patient will have the wound rewrapped. Stable at time of discharge. Impression: 1. Wound dehiscence ED Disposition - Plan for ED Patient: Disposition: Home or Assisted Living Instructions: ED Post Op Wound Check, Bleeding Referrals: Sudheer Lion MD [Primary Care Provider] - Shay Fink MD [NON-STAFF] - As soon as possible
[2020-06-22 19:06] VITALS: PULSE 78; RESP 16; O2SAT 98
== END 2020-06-22 19:11 | disposition home or self-care (01) ==
PROVIDERS: Emergency Provider Emergency Medicine; PCP Family Medicine
DX: T81.30XA Disruption of wound, unspecified, initial encounter (principal); E66.01 Morbid (severe) obesity due to excess calories; I25.10 Atherosclerotic heart disease of native coronary artery without angina pectoris; Z96.651 Presence of right artificial knee joint; Z86.73 Personal history of transient ischemic attack (TIA), and cerebral infarction without residual deficits; E11.9 Type 2 diabetes mellitus without complications
CPT/HCPCS: 99282

== ENCOUNTER 2020-07-12 06:11 | Observation (INO) | payer MEDICARE, OTHER, SELFPAY ==
[2020-07-12] VITALS (19 sets, daily range): BP systolic 120–187; BP diastolic 52–126; PULSE 50–100; RESP 13–20; TEMP 36.4–36.9; O2SAT 93–98; BMI 49.5; BMI 46.0
--- NOTE | 2020-07-12 06:23 | RAD_ITS ---
STUDY: X-RAY CHEST REASON FOR EXAM: Female, 64 years old. SOB TECHNIQUE: Single AP portable view of the chest. COMPARISON: 04/18/2019. FINDINGS: Left PICC line in position. Borderline cardiac enlargement. Mild congestion. Aorta unremarkable. No focal patchy airspace opacities. No pleural effusions. Upper abdomen unremarkable. Osseous structures intact. No pneumothorax. RAD/Chest 1 View (Portable) IMPRESSION: No focal patchy airspace opacities or effusions Borderline cardiac enlargement with mild congestion Left PICC line in position Electronically Signed: Toro Cordero DO at 10:00 EDT Tel , Service support ,
--- NOTE | 2020-07-12 06:24 | EKG12_ITS ---
Test Reason : SOB Blood Pressure : / mmHG Vent. Rate : 054 BPM Atrial Rate : 054 BPM P-R Int : 194 ms QRS Dur : 084 ms QT Int : 450 ms P-R-T Axes : 054 046 047 degrees QTc Int : 426 ms Sinus bradycardia Otherwise normal ECG Confirmed by ELIZABETH BOB, LUIS ([id number]), story editor JOSELUIS EDOUARD ([id number]) on 07/16/2020 2:22:59 PM Referred By: MR Confirmed By:LUIS JOHNSON MD
--- NOTE | 2020-07-12 06:24 | RAD_ITS ---
STUDY: X-RAY - RIGHT KNEE REASON FOR EXAM: Medial knee pain, limited range of motion, surgery 2 weeks ago. TECHNIQUE: 2 view(s) of the knee. COMPARISON: Radiographs 12/25/2018. FINDINGS: There is a right total knee arthroplasty without radiographic evidence of complication. There is a joint effusion. There is soft tissue swelling and overlying skin carri. RAD/Knee 1 or 2 Views IMPRESSION: Right knee arthroplasty without demonstrated radiographic complication. Joint effusion and soft tissue swelling. Electronically Signed: Abhijit Schmidt MD at 7:55 EDT Tel , Service support ,
[2020-07-12 06:45] LABS: Absolute Neutrophil Count 6.7 X10^3/uL (2.0-7.7); Basophil% 1.1 % (0-1); Eosinophils% 3.2 % (0-5); Hematocrit 23.8 % (37-47); Lymphocyte % 16.9 % (19-41); Mean Corp Hgb Conc 29.4 g/dL (32-36); Mean Corpuscular Hgb 27.8 pg (27.0-32.0); Mean Corpuscular Volume 94.4 fL (81-99); Mean Platelet Vol. 9.3 fl (6.2-12.0); Monocyte# 0.75 X10^3/uL; Monocyte% 7.9 % (0-10); NRBC Flagged by Analyzer 0 % (0-5); Neutrophil # 6.69 X10^3/uL (2.7-7.7); Neutrophil % 70.5 % (47-70); Platelet Count 334 K/mm3 (150-450); RBC Distribution Width CV 15.4 % (11.6-14.6); RBC Distribution Width SD 52.9 fl (35.1-43.9); Red Blood Count 2.52 M/mm3 (4.2-5.4); White Blood Count 9.5 K/mm3 (4.4-11.0)
[2020-07-12 06:51] LABS: Erythrocyte Sedimentation Rate 41 mm/hr (0-30)
--- NOTE | 2020-07-12 06:54 | ED.VIS.GEN ---
History of Present Illness Narrative: Patient presenting secondary to confusion shortness of breath. 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 Patient states that yesterday she had feelings of some shortness of breath and a cough. She reports that she had a nonproductive cough and felt as if she had mucus. She denies any chest pain. Tonight however the patient reports that she had some increasing shortness of breath, as well as some confusion. She felt as if she could not see and was grabbing at things. states that he is concerned that the patient potentially has a wound infection as her incision appears more red and warm than it has in the past. There are no objective fevers. <Martir Qiu - Last Filed: 07/12/20 07:06> <Gray Jimenez - Last Filed: 07/12/20 09:03> Chief Complaint: Shortness of Breath Past Medical History Prior records reviewed: Yes Past Medical History: - - Stroke, hypertension, hyperlipidemia, diabetes, hemiparesis, recent joint infection Surgical History: angioplasty - Stent., cholecystectomy, hysterectomy, total knee arthroplasty - June [address] Chua, tonsillectomy, - - Right knee arthroscopy. Lives: Spouse/ Significant Other Smoking Status: Never smoker Alcohol: None Drugs: None - Family History Maternal Family History: Family History (Last Reviewed 06/17/20 @ 10:12 by Pauline Rodgers) Mother CAD (coronary artery disease) Hypertension Father CAD (coronary artery disease) Brother Myocardial infarction Hypertension Sister Hypertension Other CVA (cerebral vascular accident) Family History: Reports: No pertinent history Paternal Family History: Family History (Last Reviewed 06/17/20 @ 10:12 by Pauline Rodgers) Mother CAD (coronary artery disease) Hypertension Father CAD (coronary artery disease) Brother Myocardial infarction Hypertension Sister Hypertension Other CVA (cerebral vascular accident) Family History: Reports: No pertinent history <Martir Qiu - Last Filed: 07/12/20 07:06> - Family History Maternal Family History: Family History (Last Reviewed 06/17/20 @ 10:12 by Pauline Rodgers) Mother CAD (coronary artery disease) Hypertension Father CAD (coronary artery disease) Brother Myocardial infarction Hypertension Sister Hypertension Other CVA (cerebral vascular accident) Paternal Family History: Family History (Last Reviewed 06/17/20 @ 10:12 by Pauline Rodgers) Mother CAD (coronary artery disease) Hypertension Father CAD (coronary artery disease) Brother Myocardial infarction Hypertension Sister Hypertension Other CVA (cerebral vascular accident) <Gray Jimenez - Last Filed: 07/12/20 09:03> - Allergies and Home Meds Allergies/Adverse Reactions: Allergies ciprofloxacin [From Cipro] Allergy (Verified 07/12/20 06:23) Unknown escitalopram oxalate [From Lexapro] Allergy (Verified 07/12/20 06:23) Unknown heparin Allergy (Verified 07/12/20 06:23) Unknown mupirocin [From Bactroban] Allergy (Verified 07/12/20 06:23) Unknown trazodone Allergy (Verified 07/12/20 06:23) Unknown adhesive tape Adverse Reaction (Verified 07/12/20 06:23) Other Primary Care Physician: Sudheer Lion MD [Primary Care Provider] - Review of Systems All systems negative except as indicated General: Reports: - - Confusion Eyes: Denies: Visual changes - bilaterally, Diplopia ENT: Denies: Rhinorrhea, Sore throat Cardiovascular: Denies: Chest pain, Palpitations Respiratory: Reports: Dyspnea, Cough Gastrointestinal: Denies: Abdominal pain, Nausea, Vomiting, Diarrhea, Melena, Hematochezia Genitourinary: Denies: Dysuria, Hematuria, Frequency Musculoskeletal: Denies: Back pain, Extremity Pain Skin: Reports: Rash Neurological: Denies: Headache, Weakness, Numbness <Martir Qiu - Last Filed: 07/12/20 07:06> Physical Exam Vital Signs/Narrative: Vital Signs Temp Pulse Resp BP Pulse Ox 07/12/20 06:12 97.8 F 56 L 18 136/115 H 95 Inital Vital Signs reviewed: Yes General: - - Obese chronically ill-appearing female sitting in the bed no acute distress Head: Normocephalic, Atraumatic Eyes: Perrl, EOMI ENT: Moist mucous membranes Neck: Supple, Nontender Cardiovascular: Regular rate, Regular rhythm, No murmurs, - - 2+ radial pulses bilaterally symmetric Respiratory: No distress, CTA bilaterally, Chest nontender Abdomen: Soft, Nontender, Nondistended, Normal bowel sounds Extremities: - - Examination of the patient right leg shows a large anterior incision going from the patient's thigh down to the tibia. There is no evidence of wound dehiscence or drainage. There is erythema specifically over the more proximal area of the wound with warmth to palpation, no significant tenderness. Skin: Normal color Neurological: Alert, Oriented x3, - - Right-sided hemiparesis at baseline <LazarusMartir - Last Filed: 07/12/20 07:06> Vital Signs/Narrative: Vital Signs Temp Pulse Resp BP Pulse Ox 07/12/20 08:38 13 95 07/12/20 08:00 97.8 F 100 20 H 159/126 H 95 07/12/20 07:00 97.6 F L 51 L 20 H 144/67 H 95 07/12/20 06:12 97.8 F 56 L 18 136/115 H 95 <Gray Jimenez - Last Filed: 07/12/20 09:03> Diagnostic/Tx/Re-eval - EKG Initial EKG Interpretation: - - Sinus bradycardia with a rate of 54, isoelectric ST segments normal T waves borderline prolonged TN interval at 194 ms no evidence of acute ischemia. No gross changes from prior EKG. - Medical Decision Making Patient presenting with shortness of breath and some confusion. She appears alert and oriented, and not encephalopathic currently. An EKG was obtained which showed sinus bradycardia no evidence of acute changes. Patient was noted to have new onset anemia with a hemoglobin of 7 she was typed and screened. Patient's lab work is pending at this time, she does seem to potentially have an element of some cellulitis on the right surgical incision. Patient will be dispositioned by the oncoming physician. <LazarusMartir - Last Filed: 07/12/20 07:06> - Medical Decision Making Patient was checked out to me with labs and imaging pending. Test results: Clinical Impression(s) from Imaging Studies Knee X-Ray 07/12/20 06:24 IMPRESSION: Right knee arthroplasty without demonstrated radiographic complication. Joint effusion and soft tissue swelling. Electronically Signed: Abhijit Schmidt MD at 7:55 EDT Tel , Service support , Chest x-ray shows no acute disease. Abnormal Lab Results 07/12/20 07/12/20 07/12/20 06:34 06:34 06:34 WBC 9.5 RBC 2.52 L Hgb 7.0 L Hct 23.8 L MCV 94.4 MCH 27.8 MCHC 29.4 L RDW Std Deviation 52.9 H RDW Coeff of Uriel 15.4 H Plt Count 334 MPV 9.3 Immature Gran % (Auto) 0.400 Neut % (Auto) 70.5 H Lymph % (Auto) 16.9 L Limestone % (Auto) 7.9 Eos % (Auto) 3.2 Baso % (Auto) 1.1 H Absolute Neuts (auto) 6.7 Absolute Lymphs (auto) 1.60 Nucleated RBC % 0 ESR 41 H Sodium 139 Potassium 4.2 Chloride 109 H Carbon Dioxide 25.0 Anion Gap 5 BUN 8 Creatinine 0.85 Estim Creat Clear Calc 51.49 Est GFR (MDRD) Af Amer 86 Est GFR (MDRD) Non-Af 71 BUN/Creatinine Ratio 9.4 L Glucose 118 H Calcium 8.4 L Troponin I < 0.015 C-React Prot Ext Range 74.90 H B-Natriuretic Peptide 471.4 H Crossmatch 07/12/20 08:05 WBC RBC Hgb Hct MCV MCH MCHC RDW Std Deviation RDW Coeff of Uriel Plt Count MPV Immature Gran % (Auto) Neut % (Auto) Lymph % (Auto) Limestone % (Auto) Eos % (Auto) Baso % (Auto) Absolute Neuts (auto) Absolute Lymphs (auto) Nucleated RBC % ESR Sodium Potassium Chloride Carbon Dioxide Anion Gap BUN Creatinine Estim Creat Clear Calc Est GFR (MDRD) Af Amer Est GFR (MDRD) Non-Af BUN/Creatinine Ratio Glucose Calcium Troponin I C-React Prot Ext Range B-Natriuretic Peptide Crossmatch See Detail Emergency department course: Had a prolonged discussion with the patient and her . She reports that her knee has been red since the last surgery. They question whether this may be slightly worse than it was previously. She denies any blood in her stools or black tarry stools. Treatment plan: Patient will be discussed with the hospitalist. She was typed and crossed for 1 unit packed red blood cells. Disposition: Admitted in stable condition. Impression: 1. Symptomatic anemia. <Gray Jimenez - Last Filed: 07/12/20 09:03> ED Disposition <Martir Qiu - Last Filed: 07/12/20 07:06> <Gray Jimenez - Last Filed: 07/12/20 09:03> - Plan for ED Patient: Referrals: Sudheer Lion MD [Primary Care Provider] -
[2020-07-12 07:04] LABS: Anion Gap 5 (5-15); BUN 8 mg/dL (7-18); BUN/Creat Ratio 9.4 RATIO (10-20); Calcium,Total 8.4 mg/dL (8.5-10.1); Chloride 109 mmol/L (98-107); Creatinine, Serum 0.85 mg/dL (0.55-1.02); EST Glomerular Filtration Rate 71 mL/min (>60); Est Glom Filt Rate - Afr Amer 86 mL/min (>60); Estimated Creatinine Clearance 51.49 ml/min; Glucose 118 mg/dL (74-106); Potassium 4.2 mmol/L (3.5-5.1); Sodium Level 139 mmol/L (136-145)
[2020-07-12 08:26] LABS: BNP,B-Type NATRIURETIC PEPTIDE 471.4 pg/mL (0-100)
[2020-07-12] MEDS: Ondansetron 4 MG/2 ML Vial IV (09:04)
[2020-07-12] MEDS: Morphine 4 MG/ML Syringe IV (09:07)
--- NOTE | 2020-07-12 10:19 | ED.RN ---
this nurse called [facility] to let them know that the blood is ready for the pt, pt had already left floor before it was ready. [email or web address] in [facility] was who I spoke with.
[2020-07-12] MEDS: DULoxetine Hcl 60 MG Capsule PO (12:02)
[2020-07-12] MEDS: Metoprolol Tartrate 25 MG Tablet PO ×2 (12:02→20:15)
[2020-07-12] MEDS: Aspirin E.C. 81 MG Tablet PO ×2 (12:02→17:17)
[2020-07-12] MEDS: Lisinopril 20 MG Tablet PO ×2 (12:02→20:17)
[2020-07-12] MEDS: amLODIPine 10 MG Tablet PO (12:02)
[2020-07-12] MEDS: Famotidine 20 MG Tablet PO (12:02)
--- NOTE | 2020-07-12 12:15 | CASEMGMT ---
As per initial RN admitting assessment, pt has LW/POA and they are not on file, she will bring them in. HELEN Garces
[2020-07-12] MEDS: Tolterodine Tartrate 2 MG CAP.SA PO (12:17)
--- NOTE | 2020-07-12 12:17 | CASEMGMT ---
Nursing asking if pt can use her antibiotic from home here at the hospital as it is on a pump and it will run out this afternoon. Pt receives antibiotic through [facility]. TC to [facility], pt may use the meds already dispensed but [facility] will not deliver any more while pt in hospital. States if pt stays overnight, pt will need new rx for antibiotics. Currently Dr. Harrison Evans is ordering antibiotics. Notified [facility] director of the above.
[2020-07-12] MEDS: oxyCODONE 5 MG Tablet 10 MG PO ×2 (12:47→20:26)
--- NOTE | 2020-07-12 12:51 | NURSING ---
Cetriaxone medication not on the floor called pharmacy to get this dose talked to Sugey
[2020-07-12] MEDS: Pregabalin 75 MG Capsule PO ×2 (13:56→20:26)
[2020-07-12] MEDS: 0.9% Saline Lock 10 ML Syringe IV ×3 (13:59→20:27)
--- NOTE | 2020-07-12 14:09 | HP.PCM_ITS ---
Problem List (1) Acute on chronic anemia Status: Acute History of Present Illness Date of Admission: 07/12/20 Patient is a 64-year-old female who presents to the ED on 07/12/2020 for confusion and shortness of breath. Patient and also report that her right knee has been red since a previous surgery, and they are going to have a procedure to examine the joint tomorrow in [place]. While in the ED the patient was found to be anemic with a hemoglobin of 7.0. Patient denies any blood in her stools or any black tarry stools. Patient will be admitted for symptomatic anemia secondary to blood loss from prior surgery 3 weeks ago. Patient was typed and crossed for 1 unit of PRBCs and admitted to [facility] for observation. Past Medical History Past Medical History (Chronic Problems): Chronic Problems (Last Reviewed 06/17/20 @ 10:12 by Pauline Rodgers) GERD (gastroesophageal reflux disease) (Chronic) Overactive bladder (Chronic) Diabetes mellitus (Chronic) Coronary artery disease (Chronic) Hypertension (Chronic) Body mass index (BMI) 45.0-49.9, adult (Chronic) Stroke (Chronic) Right hemiparesis (Chronic) Type 2 diabetes mellitus (Chronic) Hemoglobin A1c is 7.5% Presence of stent in coronary artery (Chronic ~02/27/12) 09/24/2009 bare-metal stent to RCA at [facility]; PTCA/LADARIUS to mid LAD 02/27/12 Essential hypertension (Chronic) Atherosclerotic heart disease of [place] coronary artery without angina pectoris (Chronic) Nocturnal hypoxemia (Chronic) Pulmonary hypertension (Chronic) Insomnia (Chronic) Morbid obesity (Chronic) Hyperlipidemia (Chronic) Medical History: Medical History (Last Reviewed 06/17/20 @ 10:12 by Pauline Rodgers) Presence of stent in coronary artery (Chronic) Onset Date: ~02/27/12 Z95.5 09/24/2009 bare-metal stent to RCA at [facility]; PTCA/LADARIUS to mid LAD 02/27/12 Essential hypertension (Chronic) I10 Atherosclerotic heart disease of [place] coronary artery without angina pectoris (Chronic) I25.10 Nocturnal hypoxemia (Chronic) G47.34 Pulmonary hypertension (Chronic) I27.20 Insomnia (Chronic) G47.00 Morbid obesity (Chronic) E66.01 Hyperlipidemia (Chronic) E78.5 Anxiety F41.9 CVA (cerebral vascular accident) I63.9 2005 right sided Depression F32.9 Heart disease I51.9 Right sided cerebral infarction I63.9 Suicide attempt by drug ingestion T50.902A Allergies ciprofloxacin [From Cipro] Allergy (Verified 07/12/20 06:23) Unknown escitalopram oxalate [From Lexapro] Allergy (Verified 07/12/20 06:23) Unknown heparin Allergy (Verified 07/12/20 10:33) real anxious mupirocin [From Bactroban] Allergy (Verified 07/12/20 06:23) Unknown trazodone Allergy (Verified 07/12/20 10:33) knocked me out adhesive tape Adverse Reaction (Verified 07/12/20 10:33) Rash Home Medications: Ambulatory Orders Medication Instructions Recorded Clopidogrel Bisulfate [Plavix] 75 mg PO QHS 08/25/15 Atorvastatin Calcium [Lipitor] 40 mg PO QHS 01/27/16 Duloxetine HCl 60 mg PO DAILY 07/05/17 ranitidine HCl 150 mg tablet 150 mg PO QDAY 10/31/17 metoprolol tartrate 25 mg tablet 25 mg PO BID #180 tab 09/16/18 Amlodipine Besylate [Norvasc] 10 mg PO QDAY 10/31/18 Folic Acid 1 mg PO DAILY 12/13/18 Metformin HCl 1,000 mg PO BIDCM 12/13/18 lisinopril 20 mg tablet 20 mg PO BID #180 tab 12/24/18 Ferrous Sulfate [Iron] 150 mg PO BID 04/23/19 Polyethylene Glycol 3350 [Miralax] 17 gm PO DAILY PRN 04/23/19 ALPRAZolam [Xanax] 1 mg PO BID #6 tab 04/25/19 Oxycodone HCl/Acetaminophen 1 tab PO Q4H PRN PRN 04/28/19 [Percocet 5-325] Acetaminophen [Tylenol] 1,000 mg PO Q6H PRN PRN tab 04/30/19 Apixaban [Eliquis] 2.5 mg PO BID #60 tab 04/30/19 ascorbate calcium (vitamin C) 500 500 mg PO DAILY 06/16/20 mg tablet aspirin 81 mg tablet,delayed 81 mg PO DAILY tab 06/16/20 release duloxetine 30 mg capsule,delayed 30 mg PO QPM #30 cap 06/17/20 release Pregabalin [Lyrica] 75 mg PO TID 07/12/20 Tizanidine HCl [Zanaflex] 4 mg PO TID 07/12/20 Surgical History: Surgical History (Last Reviewed 06/17/20 @ 10:12 by Pauline Rodgers) History of ankle surgery Z98.890 Right (April 2019) History of foot surgery Z98.890 Right, 2014 History of hernia repair Z98.890, Z87.19 1954 Presence of coronary angioplasty implant and graft Onset Date: ~02/27/12 Z95.5 09/24/2009 bare-metal stent to RCA at [facility]; PTCA/LADARIUS to mid LAD 02/27/12 H/O arthroscopy of right knee Z98.890 History of cholecystectomy Z90.49 History of hysterectomy Z90.710 History of knee replacement Z96.659 History of tonsillectomy Z90.89 Status post total right knee replacement Onset Date: ~12/25/18 Z96.651 Surgical History: angioplasty - Stent., cholecystectomy, hysterectomy, total knee arthroplasty - June [address] Chua, tonsillectomy, - - Right knee arthroscopy. Psychiatric History: Anxiety, Depression [employer] History: dysfunctional uterine bld Lives: Spouse/ Significant Other Smoking Status: Never smoker Alcohol: None Drugs: None - *Family History Maternal Family History: Family History (Last Reviewed 06/17/20 @ 10:12 by Pauline Rodgers) Mother CAD (coronary artery disease) Hypertension Father CAD (coronary artery disease) Brother Myocardial infarction Hypertension Sister Hypertension Other CVA (cerebral vascular accident) History Items: No pertinent history Paternal Family History: Family History (Last Reviewed 06/17/20 @ 10:12 by Pauline Rodgers) Mother CAD (coronary artery disease) Hypertension Father CAD (coronary artery disease) Brother Myocardial infarction Hypertension Sister Hypertension Other CVA (cerebral vascular accident) History Items: No pertinent history Review of Systems Constitutional: Reports: Fatigue. Denies: Chills, Fever, Weight Change HEENT: Denies: Head Aches, Sinus Congestion, Sinus Drainage Cardiovascular: Denies: Chest Pain, Palpitations Respiratory: Denies: Cough, Shortness of breath at rest, Sputum production Gastrointestinal: Denies: Abdominal Pain, Nausea, Vomiting Genitourinary: Denies: Dysuria Musculoskeletal: Denies: Joint Pain, Joint Tenderness Skin: Reports: - - Surgical scar from surgery about the right knee. Neurological: Denies: Numbness, Tingling, Focal weakness Psychiatric: Denies: Anxiety, Depression, Homicidal Ideations, Suicidal Ideations Hematologic/ Lymphatic: Denies: Easy Bruising, Easy Bleeding VTE Information - Inpt Only VTE Present on Admission: No Subjective: Patient is an obese 64-year-old female comfortably resting in bed, alert and oriented x3. Patient does not reporting any shortness of breath or cough currently. Her confusion from the ED seems to have been resolved. - Physical Exam Vitals/I&O's: Vital Signs Temp Pulse Resp BP Pulse Ox 98.0 F 50 L 18 120/52 L 94 07/12/20 14:04 07/12/20 14:04 07/12/20 14:04 07/12/20 14:04 07/12/20 14:04 Oxygen Flow Rate (L/min) 2 Oxygen Delivery Method Room Air Weight: 251 lb 8.759 oz Body Mass Index (BMI) 46.0 Finger Stick Blood Glucose 144 Intake and Output for Last 24 Hours 07/10/20 07/11/20 07/12/20 23:59 23:59 23:59 Intake Total 290 / 290 Balance 290 / 290 General: Alert, Oriented x3, Cooperative HEENT: Atraumatic, PERRLA, EOMI, Normocephalic Neck: Supple, No JVD, Negative Carotid Bruits Lungs: Clear to auscultation, Normal air movement Cardiovascular: Regular rate, No murmurs Abdomen: Bowel Sounds Present, Soft, Non Tender Extremities: - - Scar about the right knee from prior surgery Skin: No rashes, No breakdown Musculoskeletal: No Tenderness to Palpation of Joints or Extremities Neurological: Cranial nerves II-XII grossly intact Psych/Mental Status: Normal Affect, Appropriate Microbiology Past 72 Hours 07/12/20 06:30 Mucosa - Nose SARS-CoV-2 Antigen (Rapid) - Final Laboratory Results 07/12/20 06:34: WBC 9.5, RBC 2.52 L, Hgb 7.0 L, Hct 23.8 L, MCV 94.4, MCH 27.8, MCHC 29.4 L, RDW Std Deviation 52.9 H, RDW Coeff of Uriel 15.4 H, Plt Count 334, MPV 9.3, Immature Gran % (Auto) 0.400, Neut % (Auto) 70.5 H, Lymph % (Auto) 16.9 L, [place] % (Auto) 7.9, Eos % (Auto) 3.2, Baso % (Auto) 1.1 H, Absolute Neuts (auto) 6.7, Absolute Lymphs (auto) 1.60, Nucleated RBC % 0, ESR 41 H 07/12/20 06:34: Sodium 139, Potassium 4.2, Chloride 109 H, Carbon Dioxide 25.0, Anion Gap 5, BUN 8, Creatinine 0.85, Estim Creat Clear Calc 51.49, Est GFR (MDRD) Af Amer 86, Est GFR (MDRD) Non-Af 71, BUN/Creatinine Ratio 9.4 L, Glucose 118 H, Calcium 8.4 L, Troponin I < 0.015, C-React Prot Ext Range 74.90 H 07/12/20 06:34: B-Natriuretic Peptide 471.4 H 07/12/20 08:05: Blood Type O POSITIVE, Antibody Screen NEGATIVE, Crossmatch See Detail 07/12/20 08:05: Crossmatch See Detail Current Medications Alprazolam (Alprazolam 0.5 Mg Tablet) 1 mg PO BID [facility] Amlodipine Besylate (Amlodipine 10 Mg Tablet) 10 mg PO DAILY [facility] Last Admin: 07/12/20 12:02 Dose: 10 mg Documented by: Ampicillin Sodium (Ampicillin 2 Gm Vial) 0 gm IV Q4 [facility] Last Admin: 07/12/20 13:44 Dose: Not Given Documented by: Aspirin (Aspirin E.C. 81 Mg Tablet) 81 mg PO BID@0800,1700 [facility] Last Admin: 07/12/20 12:02 Dose: 81 mg Documented by: Atorvastatin Calcium (Atorvastatin Calcium 40 Mg Tablet) 40 mg PO QHS [facility] Clopidogrel Bisulfate (Clopidogrel Bisulfate 75 Mg Tablet) 75 mg PO QHS [facility] Duloxetine HCl (Duloxetine Hcl 30 Mg Capsule) 30 mg PO QPM [facility] Duloxetine HCl (Duloxetine Hcl 60 Mg Capsule) 60 mg PO DAILY [facility] Last Admin: 07/12/20 12:02 Dose: 60 mg Documented by: Famotidine (Famotidine 20 Mg Tablet) 20 mg PO DAILY [facility] Last Admin: 07/12/20 12:02 Dose: 20 mg Documented by: Sodium Chloride () 500 mls @ 15 mls/hr IV PRN PRN PRN Reason: Blood Transfusion Sodium Chloride () 250 mls @ 15 mls/hr IV .[id number] PRN PRN Reason: Saline Flush Ceftriaxone Sodium 2 gm/ (Sodium Chloride) 50 mls @ 100 mls/hr IV Q12 [facility] Last Infusion: 07/12/20 13:27 Dose: Infused Documented by: Lisinopril (Lisinopril 20 Mg Tablet) 20 mg PO BID [facility] Last Admin: 07/12/20 12:02 Dose: 20 mg Documented by: Metformin HCl (Met[facility] Hcl 1,000 Mg Tablet) [facility] Metoprolol Tartrate (Metoprolol Tartrate 25 Mg Tablet) 25 mg PO BID [facility] Last Admin: 07/12/20 12:02 Dose: 25 mg Documented by: Morphine Sulfate (Morphine 4 Mg/Ml Syringe) 4 mg IV Q3H PRN PRN PRN Reason: Pain Score 6-10 Ondansetron HCl (Ondansetron 4 Mg/2 Ml Vial) 4 mg IV Q8H PRN PRN PRN Reason: NAUSEA/VOMITING Oxycodone HCl (Oxycodone 5 Mg Tablet) 10 mg PO Q4H PRN PRN PRN Reason: Pain Score 4-5 Last Admin: 07/12/20 12:47 Dose: 10 mg Documented by: Polyethylene Glycol (Polyethylene Glycol 3350 17 Gm Packet) 17 gm PO DAILY PRN PRN PRN Reason: Constipation Pregabalin (Pregabalin 75 Mg Capsule) 75 mg PO TID [facility] Last Admin: 07/12/20 13:56 Dose: 75 mg Documented by: Sodium Chloride (0.9% Saline Lock 10 Ml Syringe) 10 - 40 ml IV UD PRN PRN Reason: SALINE FLUSH Last Admin: 07/12/20 13:59 Dose: 10 ml Documented by: Tolterodine Tartrate (Tolterodine Tartrate 2 Mg Cap.Sa) 2 mg PO DAILY [facility] Last Admin: 07/12/20 12:17 Dose: 2 mg Documented by: Assessment/Plan All Active Problems (Last Reviewed 06/17/20 @ 10:12 by Pauline Rodgers) Acute on chronic anemia (Acute) Dislocation of right ankle joint (Acute) Closed right ankle fracture (Acute) Other acute postprocedural pain (Acute) Debility (Acute) Patient is a 64-year-old female who presents to the ED on 07/12/2020 for confusion and shortness of breath. Patient and also report that her right knee has been red since a previous surgery, and they are going to have a procedure to examine the joint tomorrow in [place]. While in the ED the patient was found to be anemic with a hemoglobin of 7.0. Patient denies any blood in her stools or any black tarry stools. Patient will be admitted for symptomatic anemia secondary to blood loss from prior surgery 3 weeks ago. Patient was typed and crossed for 1 unit of PRBCs and admitted to [facility] for observation. Patient will be observed overnight and potentially discharge tomorrow for outpatient management of her right knee. 1) Acute on chronic anemia secondary to acute blood loss from recent surgery Assessment - Hemoglobin of 7 - Typed and crossed for 1 unit PRBCs Plan - PRBCs transfusing now - Monitor CBC in am - Discharge tomorrow for right knee procedure 2) Other acute preprocedural pain Assessment - Managed outpatient for complications from right knee surgery - Right knee mildly erythematous and swollen Plan - Empiric ceftriaxone infusing for possible cellulitis DVT Prophylaxis - SCD's Patient seen by Cristian Powell PA-C, under the supervision of Dr. Peres.
[2020-07-12] MEDS: metFORMIN HCl 1,000 MG Tablet 1000 MG PO (17:17)
[2020-07-12] MEDS: Atorvastatin Calcium 40 MG Tablet PO (20:15)
[2020-07-12] MEDS: DULoxetine Hcl 30 MG Capsule PO (20:17)
[2020-07-12] MEDS: Clopidogrel Bisulfate 75 MG Tablet PO (20:17)
[2020-07-12] MEDS: ALPRAZolam 0.5 MG Tablet 1 MG PO (20:26)
[2020-07-12] MEDS: tiZANidine HCl 2 MG Tablet 4 MG PO (21:39)
[2020-07-12 21:49] LABS: Hematocrit 30.1 % (37-47); Hemoglobin 9.4 g/dL (12.0-15.0)
[2020-07-13 05:24] LABS: Absolute Lymphocyte Count 1.58 X10^3/uL (0.83-4.51); Absolute Neutrophil Count 6.4 X10^3/uL (2.0-7.7); Basophil# 0.09 X10^3/uL; Eosinophil# 0.26 X10^3/uL; Eosinophils% 2.9 % (0-5); Hemoglobin 8.6 g/dL (12.0-15.0); Lymphocyte # 1.58 X10^3/ul (4.0); Lymphocyte % 17.5 % (19-41); Mean Corp Hgb Conc 29.7 g/dL (32-36); Mean Corpuscular Hgb 28.1 pg (27.0-32.0); Mean Corpuscular Volume 94.8 fL (81-99); Mean Platelet Vol. 9.6 fl (6.2-12.0); Monocyte# 0.69 X10^3/uL; Monocyte% 7.6 % (0-10); NRBC Flagged by Analyzer 0 % (0-5); Neutrophil # 6.39 X10^3/uL (2.7-7.7); Neutrophil % 70.6 % (47-70); Platelet Count 327 K/mm3 (150-450); RBC Distribution Width CV 15.3 % (11.6-14.6); RBC Distribution Width SD 52.4 fl (35.1-43.9); Red Blood Count 3.06 M/mm3 (4.2-5.4); White Blood Count 9.1 K/mm3 (4.4-11.0)
[2020-07-13] MEDS: oxyCODONE 5 MG Tablet 10 MG PO (05:51)
[2020-07-13] MEDS: Pregabalin 75 MG Capsule PO (05:51)
[2020-07-13] MEDS: Acetaminophen 325 MG Tablet 650 MG PO (05:52)
[2020-07-13 06:02] VITALS: BP 123/54; PULSE 52; RESP 18; TEMP 36.1; O2SAT 93
--- NOTE | 2020-07-13 09:57 | DS.PCM_ITS ---
Discharge Date and Diagnosis - Problem List Patient Problems: Active and Suspected Problems (Last Reviewed 06/17/20 @ 10:12 by Pauline Rodgers) Acute on chronic anemia (Acute) Date of Admission: 07/12/20 - Primary Discharge Diagnosis Acute Problems: Active Problems (Last Reviewed 06/17/20 @ 10:12 by Pauline Rodgers) Acute on chronic anemia (Acute) - Secondary Discharge Diagnosis Chronic Problems: Chronic Problems (Last Reviewed 06/17/20 @ 10:12 by Pauline Rodgers) GERD (gastroesophageal reflux disease) (Chronic) Overactive bladder (Chronic) Diabetes mellitus (Chronic) Coronary artery disease (Chronic) Hypertension (Chronic) Body mass index (BMI) 45.0-49.9, adult (Chronic) Stroke (Chronic) Right hemiparesis (Chronic) Type 2 diabetes mellitus (Chronic) Hemoglobin A1c is 7.5% Presence of stent in coronary artery (Chronic ~02/27/12) 09/24/2009 bare-metal stent to RCA at [facility]; PTCA/LADARIUS to mid LAD 02/27/12 Essential hypertension (Chronic) Atherosclerotic heart disease of [place] coronary artery without angina pectoris (Chronic) Nocturnal hypoxemia (Chronic) Pulmonary hypertension (Chronic) Insomnia (Chronic) Morbid obesity (Chronic) Hyperlipidemia (Chronic) Hospital Course and Treatment Operations: None, - - Right ankle open reduction with internal fixation Summary of Care Provided: Patient is a 64-year-old female who presented to the ED on 07/12/2020 for confusion and shortness of breath. Patient was admitted for symptomatic anemia secondary to blood loss from prior surgery 3 weeks ago. Patient was typed and crossed for 2 unit of PRBCs, transfused and admitted to the [facility] for observation. Patient reports resolution of her confusion and shortness of breath from yesterday. Patient feels stable enough to be discharged, and would like discharge to be precipitated due to orthopedic appointment scheduled for later on today. 1) Acute on chronic anemia secondary to acute blood loss from recent surgery Assessment - Hemoglobin of 8.6, stable - No leukocytosis on CBC - Typed/Crossed and transfused x2 PRBCs while admitted - O2 saturation above 90% on room air - Shortness of breath and confusion seen on admission have resolved Plan - Discharge today - Proceed to scheduled orthopedic surgery appointment on 07/13/2020 2) Other acute preprocedural pain Assessment - Managed outpatient for complications from right knee surgery - Right knee mildly erythematous and swollen - CXR demonstrated no acute disease - Empiric ceftriaxone infused for possible cellulitis Plan -Proceed to scheduled orthopedic surgery appointment on 07/13/2020 Patient seen by Cristian Powell PA-C, under the supervision of Dr. Peres. Patient Problems: Active and Suspected Problems (Last Reviewed 06/17/20 @ 10:12 by Pauline Rodgers) Acute on chronic anemia (Acute) Subjective: Patient is a 64-year-old female who is comfortably resting in bed on 2 L of oxygen, alert and orient x3. Patient reports resolution of her shortness of breath, weakness, confusion from yesterday and does feel ready for discharge. Patient like to be discharged soon as possible due to orthopedic appointment later on this morning. - Physical Exam Vitals/I&O's: Vital Signs Temp Pulse Resp BP Pulse Ox 97 F L 52 L 18 123/54 H 93 07/13/20 06:02 07/13/20 06:02 07/13/20 06:02 07/13/20 06:02 07/13/20 06:02 Oxygen Flow Rate (L/min) 2 Oxygen Delivery Method Nasal Cannula Weight: 251 lb 8.759 oz Body Mass Index (BMI) 46.0 Finger Stick Blood Glucose 144 Intake and Output for Last 24 Hours 07/11/20 07/12/20 07/13/20 23:59 23:59 23:59 Intake Total 890 / 890 Output Total 1200 / 1200 Balance -310 / -310 General: Alert, Oriented x3, Cooperative HEENT: Atraumatic, PERRLA, EOMI, Normocephalic Neck: Supple, No JVD, Negative Carotid Bruits Lungs: Clear to auscultation, Normal air movement Cardiovascular: Regular rate, No murmurs Abdomen: Bowel Sounds Present, Soft, Non Tender Extremities: No edema, Capillary Refill Less than 3 Seconds Skin: - - Surgical scar on right knee from prior arthroplasty Musculoskeletal: No Tenderness to Palpation of Joints or Extremities Neurological: Cranial nerves II-XII grossly intact Psych/Mental Status: Normal Affect, Appropriate Microbiology Past 72 Hours 07/12/20 06:30 Mucosa - Nose SARS-CoV-2 Antigen (Rapid) - Final Laboratory Results 07/12/20 08:05: Blood Type O POSITIVE, Antibody Screen NEGATIVE, Crossmatch See Detail 07/12/20 08:05: Crossmatch See Detail 07/12/20 21:42: Hgb 9.4 L, Hct 30.1 L 07/13/20 04:58: WBC 9.1, RBC 3.06 L, Hgb 8.6 L, Hct 29.0 L, MCV 94.8, MCH 28.1, MCHC 29.7 L, RDW Std Deviation 52.4 H, RDW Coeff of Uriel 15.3 H, Plt Count 327, MPV 9.6, Immature Gran % (Auto) 0.400, Neut % (Auto) 70.6 H, Lymph % (Auto) 17.5 L, Harmon % (Auto) 7.6, Eos % (Auto) 2.9, Baso % (Auto) 1.0, Absolute Neuts (auto) 6.4, Absolute Lymphs (auto) 1.58, Nucleated RBC % 0 Current Medications Acetaminophen (Acetaminophen 325 Mg Tablet) 650 mg PO Q6H PRN PRN PRN Reason: HEADACHE 1-10 Last Admin: 07/13/20 05:52 Dose: 650 mg Documented by: Alprazolam (Alprazolam 0.5 Mg Tablet) 1 mg PO BID [facility] Last Admin: 07/12/20 20:26 Dose: 1 mg Documented by: Amlodipine Besylate (Amlodipine 10 Mg Tablet) 10 mg PO DAILY [facility] Last Admin: 07/12/20 12:02 Dose: 10 mg Documented by: Ampicillin Sodium (Ampicillin 2 Gm Vial) 0 gm IV Q4 [facility] Last Admin: 07/13/20 05:24 Dose: Not Given Documented by: Aspirin (Aspirin E.C. 81 Mg Tablet) 81 mg PO BID@0800,1700 [facility] Last Admin: 07/12/20 17:17 Dose: 81 mg Documented by: Atorvastatin Calcium (Atorvastatin Calcium 40 Mg Tablet) 40 mg PO QHS [facility] Last Admin: 07/12/20 20:15 Dose: 40 mg Documented by: Clopidogrel Bisulfate (Clopidogrel Bisulfate 75 Mg Tablet) 75 mg PO QHS [facility] Last Admin: 07/12/20 20:17 Dose: 75 mg Documented by: Duloxetine HCl (Duloxetine Hcl 30 Mg Capsule) 30 mg PO QPM [facility] Last Admin: 07/12/20 20:17 Dose: 30 mg Documented by: Duloxetine HCl (Duloxetine Hcl 60 Mg Capsule) 60 mg PO DAILY [facility] Last Admin: 07/12/20 12:02 Dose: 60 mg Documented by: Famotidine (Famotidine 20 Mg Tablet) 20 mg PO DAILY [facility] Last Admin: 07/12/20 12:02 Dose: 20 mg Documented by: Sodium Chloride () 500 mls @ 15 mls/hr IV PRN PRN PRN Reason: Blood Transfusion Sodium Chloride () 250 mls @ 15 mls/hr IV .[id number] PRN PRN Reason: Saline Flush Ceftriaxone Sodium 2 gm/ (Sodium Chloride) 50 mls @ 100 mls/hr IV Q12 [facility] Last Infusion: 07/12/20 20:57 Dose: Infused Documented by: Lisinopril (Lisinopril 20 Mg Tablet) 20 mg PO BID [facility] Last Admin: 07/12/20 20:17 Dose: 20 mg Documented by: Metformin HCl ([facility] Hcl 1,000 Mg Tablet) [facility] Last Admin: 07/12/20 17:17 Dose: 1,000 mg Documented by: Metoprolol Tartrate (Metoprolol Tartrate 25 Mg Tablet) 25 mg PO BID [facility] Last Admin: 07/12/20 20:15 Dose: 25 mg Documented by: Morphine Sulfate (Morphine 4 Mg/Ml Syringe) 4 mg IV Q3H PRN PRN PRN Reason: Pain Score 6-10 Ondansetron HCl (Ondansetron 4 Mg/2 Ml Vial) 4 mg IV Q8H PRN PRN PRN Reason: NAUSEA/VOMITING Oxycodone HCl (Oxycodone 5 Mg Tablet) 10 mg PO Q4H PRN PRN PRN Reason: Pain Score 4-5 Last Admin: 07/13/20 05:51 Dose: 10 mg Documented by: Polyethylene Glycol (Polyethylene Glycol 3350 17 Gm Packet) 17 gm PO DAILY PRN PRN PRN Reason: Constipation Pregabalin (Pregabalin 75 Mg Capsule) 75 mg PO TID [facility] Last Admin: 07/13/20 05:51 Dose: 75 mg Documented by: Sodium Chloride (0.9% Saline Lock 10 Ml Syringe) 10 - 40 ml IV UD PRN PRN Reason: SALINE FLUSH Last Admin: 07/12/20 20:27 Dose: 10 ml Documented by: Tizanidine HCl (Tizanidine Hcl 2 Mg Tablet) 4 mg PO Q8H PRN PRN PRN Reason: SPASMS Last Admin: 07/12/20 21:39 Dose: 4 mg Documented by: Tolterodine Tartrate (Tolterodine Tartrate 2 Mg Cap.Sa) 2 mg PO DAILY [facility] Last Admin: 07/12/20 12:17 Dose: 2 mg Documented by: Discharge Diet: No Restrictions Discharge Activity: Return to Normal Activity Home Medications: Medications to take at Discharge Clopidogrel Bisulfate [Plavix] 75 mg PO QHS 08/25/15 Atorvastatin Calcium [Lipitor] 40 mg PO QHS 01/27/16 Duloxetine HCl 60 mg PO DAILY 07/05/17 ranitidine HCl 150 mg tablet 150 mg PO QDAY 10/31/17 metoprolol tartrate 25 mg tablet 25 mg PO BID #180 tab 09/16/18 Amlodipine Besylate [Norvasc] 10 mg PO QDAY 10/31/18 Folic Acid 1 mg PO DAILY 12/13/18 Metformin HCl 1,000 mg PO BIDCM 12/13/18 lisinopril 20 mg tablet 20 mg PO BID #180 tab 12/24/18 Ferrous Sulfate [Iron] 150 mg PO BID 04/23/19 Polyethylene Glycol 3350 [Miralax] 17 gm PO DAILY PRN 04/23/19 ALPRAZolam [Xanax] 1 mg PO BID #6 tab 04/25/19 Oxycodone HCl/Acetaminophen [Percocet 5-325] 1 tab PO Q4H PRN PRN 04/28/19 Acetaminophen [Tylenol] 1,000 mg PO Q6H PRN PRN tab 04/30/19 Apixaban [Eliquis] 2.5 mg PO BID #60 tab 04/30/19 ascorbate calcium (vitamin C) 500 mg tablet 500 mg PO DAILY 06/16/20 aspirin 81 mg tablet,delayed release 81 mg PO DAILY tab 06/16/20 duloxetine 30 mg capsule,delayed release 30 mg PO QPM #30 cap 06/17/20 Pregabalin [Lyrica] 75 mg PO TID 07/12/20 Tizanidine HCl [Zanaflex] 4 mg PO TID PRN 07/12/20 Primary Care Physician: Sudheer Lion MD [Primary Care Provider] - Please follow up with your Primary Care Physician in: Within the next 2 weeks Disposition: Home Minutes spent on discharge:: 35 Patient Condition:: Good Medical Necessity - Tobacco Use Smoking Status: Never smoker Meaningful Use Info Meaningful Use Diagnoses (Choose all that apply): None applicable
--- NOTE | 2020-07-13 10:05 | DCINST_ITS ---
- Discharge Diagnoses Current Active Problems: Current Active and Chronic Problems (Last Reviewed 06/17/20 @ 10:12 by Pauline Rodgers) Acute on chronic anemia (Acute) You will use the following diet at home:: No restrictions Your food should be the consistency of: Regular Your liquids should be the consistency of: Regular/Thin Discharge Activity: Return to Normal Activity Allergies/Adverse Reactions: Allergies ciprofloxacin [From Cipro] Allergy (Verified 07/12/20 06:23) Unknown escitalopram oxalate [From Lexapro] Allergy (Verified 07/12/20 06:23) Unknown heparin Allergy (Verified 07/12/20 10:33) real anxious mupirocin [From Bactroban] Allergy (Verified 07/12/20 06:23) Unknown trazodone Allergy (Verified 07/12/20 10:33) knocked me out adhesive tape Adverse Reaction (Verified 07/12/20 10:33) Rash Medications to take at Discharge Clopidogrel Bisulfate [Plavix] 75 mg PO QHS 08/25/15 Atorvastatin Calcium [Lipitor] 40 mg PO QHS 01/27/16 Duloxetine HCl 60 mg PO DAILY 07/05/17 ranitidine HCl 150 mg tablet 150 mg PO QDAY 10/31/17 metoprolol tartrate 25 mg tablet 25 mg PO BID #180 tab 09/16/18 Amlodipine Besylate [Norvasc] 10 mg PO QDAY 10/31/18 Folic Acid 1 mg PO DAILY 12/13/18 Metformin HCl 1,000 mg PO BIDCM 12/13/18 lisinopril 20 mg tablet 20 mg PO BID #180 tab 12/24/18 Ferrous Sulfate [Iron] 150 mg PO BID 04/23/19 Polyethylene Glycol 3350 [Miralax] 17 gm PO DAILY PRN 04/23/19 ALPRAZolam [Xanax] 1 mg PO BID #6 tab 04/25/19 Oxycodone HCl/Acetaminophen [Percocet 5-325] 1 tab PO Q4H PRN PRN 04/28/19 Acetaminophen [Tylenol] 1,000 mg PO Q6H PRN PRN tab 04/30/19 ascorbate calcium (vitamin C) 500 mg tablet 500 mg PO DAILY 06/16/20 aspirin 81 mg tablet,delayed release 81 mg PO DAILY tab 06/16/20 duloxetine 30 mg capsule,delayed release 30 mg PO QPM #30 cap 06/17/20 Pregabalin [Lyrica] 75 mg PO TID 07/12/20 Tizanidine HCl [Zanaflex] 4 mg PO TID PRN 07/12/20 Primary Care Physician: Sudheer Lion MD [Primary Care Provider] - Please follow up with your Primary Care Physician in: Within the next 2 weeks Test Results: Test results from this visit will be discussed in further detail at your follow- up appointment, if applicable. Proposed Discharge Date: 07/13/20
--- NOTE | 2020-07-13 10:08 | CASEMGMT ---
[facility] CM in to discuss JESUS form with patient. RN COLEMAN explained JESUS form, patient voiced understanding. Pt signed form and filed in chart. Pt provided with a copy of signed JESUS form. Pt at bedside. Asked if pt had HHC. Pt states she does. Asked if this CM could contact to make aware pt will be dc'd. Pt states he is not aware of the name of the agency and he is on top of that. Made aware that CM will contact [facility] to let them know pt is dc'ing. questioned why the CM would be contacting them, that this hospital doesn't manage it. He states that there should not be any interruption in the delivery of the medication. Pt states they are going to a different hospital to have her knee looked at. short with CM. Asked if there were any further questions. Pt states they are very frustrated with being in hospitals, that this is the 6th surgery for her knee. Notified Qi at [facility] that pt is leaving. Made her aware that pt was seen for anemia and blood transfusion and no change to the antibiotic and family request for this CM to not interrupt delivery. She will call this CM if there is any further needs.
[2020-07-13 10:21] VITALS: BP 123/54; PULSE 52; RESP 18; TEMP 36.1; O2SAT 93
== END 2020-07-13 10:21 | disposition home or self-care (01) ==
LOC: ED 06:59 → MS3 10:26
PROVIDERS: Admitting Provider Internal Medicine; Emergency Provider Emergency Medicine; PCP Family Medicine; Visit Provider Internal Medicine
DX: D62 Acute posthemorrhagic anemia (principal); K21.9 Gastro-esophageal reflux disease without esophagitis; N32.81 Overactive bladder; I69.351 Hemiplegia and hemiparesis following cerebral infarction affecting right dominant side; I10 Essential (primary) hypertension; E11.9 Type 2 diabetes mellitus without complications; E78.5 Hyperlipidemia, unspecified; R06.02 Shortness of breath; I25.10 Atherosclerotic heart disease of native coronary artery without angina pectoris; T84.53XD Infection and inflammatory reaction due to internal right knee prosthesis, subsequent encounter; M00.9 Pyogenic arthritis, unspecified; Y79.2 Prosthetic and other implants, materials and accessory orthopedic devices associated with adverse incidents; E66.01 Morbid (severe) obesity due to excess calories; Z68.42 Body mass index [BMI] 45.0-49.9, adult; F41.9 Anxiety disorder, unspecified; F32.9 Major depressive disorder, single episode, unspecified; I27.20 Pulmonary hypertension, unspecified; Z95.5 Presence of coronary angioplasty implant and graft; Z79.899 Other long term (current) drug therapy; Z79.02 Long term (current) use of antithrombotics/antiplatelets; Z79.01 Long term (current) use of anticoagulants; Z79.84 Long term (current) use of oral hypoglycemic drugs; Z79.82 Long term (current) use of aspirin
CPT/HCPCS: 36415; 36430; 49082; 71045; 73560; 80048; 83880; 84484; 85014; 85018; 85025; 85652; 86140; 86850; 86900; 86901; 86920; 86922; 87040; 87426; 93005; 96365; 96366; 96375; 99218; 99285; J7030; J7040; P9016; A4216; G0378; J0696; J2405

== ENCOUNTER → 2020-07-22 12:06 | Outpatient (CLI) | payer MEDICARE, OTHER, SELFPAY ==
[2020-07-12 10:44] VITALS: BMI 46.0
[2020-07-22 15:29] LABS: Absolute Lymphocyte Count 1.35 X10^3/uL (0.83-4.51); Absolute Neutrophil Count 6.8 X10^3/uL (2.0-7.7); Basophil# 0.09 X10^3/uL; Basophil% 0.9 % (0-1); Eosinophil# 0.57 X10^3/uL; Eosinophils% 5.9 % (0-5); Hematocrit 33.3 % (37-47); Hemoglobin 9.6 g/dL (12.0-15.0); Lymphocyte # 1.35 X10^3/ul (0.83-4.51); Mean Corp Hgb Conc 28.8 g/dL (32-36); Mean Corpuscular Hgb 26.7 pg (27.0-32.0); Mean Corpuscular Volume 92.8 fL (81-99); Mean Platelet Vol. 9.8 fl (6.2-12.0); Monocyte# 0.78 X10^3/uL; Monocyte% 8.1 % (0-10); NRBC Flagged by Analyzer 0 % (0-5); Neutrophil # 6.78 X10^3/uL (2.7-7.7); Neutrophil % 70.6 % (47-70); Platelet Count 424 K/mm3 (150-450); RBC Distribution Width CV 14.5 % (11.6-14.6); Red Blood Count 3.59 M/mm3 (4.2-5.4); White Blood Count 9.6 K/mm3 (4.4-11.0)
[2020-07-22 15:34] LABS: Anion Gap 6 (5-15); BUN 9 mg/dL (7-18); Chloride 106 mmol/L (98-107); Creatinine, Serum 0.82 mg/dL (0.55-1.02); EST Glomerular Filtration Rate 74 mL/min (>60); Est Glom Filt Rate - Afr Amer 90 mL/min (>60); Glucose 115 mg/dL (74-106); Potassium 3.7 mmol/L (3.5-5.1); Sodium Level 140 mmol/L (136-145)
== END ==
PROVIDERS: PCP Family Medicine; Referring Provider Family Medicine; Visit Provider Family Medicine
DX: I10 Essential (primary) hypertension (principal); D64.9 Anemia, unspecified
CPT/HCPCS: 36415; 80048; 85025

== ENCOUNTER → 2020-10-05 15:30 | Outpatient (CLI) | payer MEDICARE, OTHER, SELFPAY ==
[2020-07-12 10:44] VITALS: BMI 46.0
[2020-10-05 18:06] LABS: Absolute Lymphocyte Count 1.63 X10^3/uL (0.83-4.51); Absolute Neutrophil Count 5.2 X10^3/uL (2.0-7.7); Basophil# 0.06 X10^3/uL; Basophil% 0.8 % (0-1); Eosinophil# 0.16 X10^3/uL; Eosinophils% 2.1 % (0-5); Erythrocyte Sedimentation Rate 35 mm/hr (0-30); Hematocrit 40.3 % (37-47); Hemoglobin 12.2 g/dL (12.0-15.0); Lymphocyte # 1.63 X10^3/ul (0.83-4.51); Lymphocyte % 21.5 % (19-41); Mean Corp Hgb Conc 30.3 g/dL (32-36); Mean Corpuscular Hgb 25.2 pg (27.0-32.0); Mean Corpuscular Volume 83.1 fL (81-99); Mean Platelet Vol. 10.3 fl (6.2-12.0); Monocyte# 0.52 X10^3/uL; Monocyte% 6.9 % (0-10); NRBC Flagged by Analyzer 0 % (0-5); Neutrophil # 5.17 X10^3/uL (2.7-7.7); Neutrophil % 68.3 % (47-70); Platelet Count 315 K/mm3 (150-450); RBC Distribution Width CV 16.6 % (11.6-14.6); RBC Distribution Width SD 49.8 fl (35.1-43.9); Red Blood Count 4.85 M/mm3 (4.2-5.4); White Blood Count 7.6 K/mm3 (4.4-11.0)
[2020-10-05 18:21] LABS: Albumin, Serum 3.8 g/dL (3.2-5.0); BUN 12 mg/dL (7-18); BUN/Creat Ratio 11.7 RATIO (10-20); Calcium,Total 9.4 mg/dL (8.5-10.1); Chloride 104 mmol/L (98-107); Creatinine, Serum 1.03 mg/dL (0.55-1.02); EST Glomerular Filtration Rate 57 mL/min (>60); Est Glom Filt Rate - Afr Amer 69 mL/min (>60); Glucose 117 mg/dL (74-106); Phosphorus 3.5 mg/dL (2.5-4.9); Potassium 3.9 mmol/L (3.5-5.1); Sodium Level 138 mmol/L (136-145)
[2020-10-06 11:52] LABS: Hemoglobin A1c 5.9 % (3.8-5.6)
== END ==
PROVIDERS: PCP Family Medicine
DX: E11.9 Type 2 diabetes mellitus without complications (principal); T84.53XD Infection and inflammatory reaction due to internal right knee prosthesis, subsequent encounter; A49.1 Streptococcal infection, unspecified site
CPT/HCPCS: 36415; 80069; 83036; 85025; 85652; 86140

== ENCOUNTER → 2020-12-08 16:15 | Outpatient (CLI) | payer MEDICARE, OTHER, SELFPAY ==
[2020-12-08 18:01] LABS: Absolute Lymphocyte Count 1.65 X10^3/uL (0.83-4.51); Absolute Neutrophil Count 8.2 X10^3/uL (2.0-7.7); Basophil# 0.08 X10^3/uL; Basophil% 0.7 % (0-1); Eosinophil# 0.18 X10^3/uL; Eosinophils% 1.7 % (0-5); Hematocrit 41.7 % (37-47); Lymphocyte # 1.65 X10^3/ul (0.83-4.51); Lymphocyte % 15.2 % (19-41); Mean Corp Hgb Conc 31.2 g/dL (32-36); Mean Corpuscular Hgb 26.2 pg (27.0-32.0); Mean Corpuscular Volume 84.1 fL (81-99); Mean Platelet Vol. 9.6 fl (6.2-12.0); Monocyte# 0.75 X10^3/uL; Monocyte% 6.9 % (0-10); NRBC Flagged by Analyzer 0 % (0-5); Neutrophil # 8.19 X10^3/uL (2.7-7.7); Neutrophil % 75.1 % (47-70); Platelet Count 433 K/mm3 (150-450); RBC Distribution Width CV 14.9 % (11.6-14.6); RBC Distribution Width SD 45.3 fl (35.1-43.9); Red Blood Count 4.96 M/mm3 (4.2-5.4); White Blood Count 10.9 K/mm3 (4.4-11.0)
[2020-12-08 18:22] LABS: Anion Gap 7 (5-15); BUN 13 mg/dL (7-18); Calcium,Total 10.3 mg/dL (8.5-10.1); Chloride 102 mmol/L (98-107); EST Glomerular Filtration Rate 59 mL/min (>60); Est Glom Filt Rate - Afr Amer 71 mL/min (>60); Glucose 128 mg/dL (74-106); Potassium 4.2 mmol/L (3.5-5.1); Sodium Level 138 mmol/L (136-145)
== END ==
PROVIDERS: PCP Family Medicine; Referring Provider Family Medicine; Visit Provider Family Medicine
DX: L03.90 Cellulitis, unspecified (principal); L02.91 Cutaneous abscess, unspecified
CPT/HCPCS: 36415; 80048; 85025

== ENCOUNTER 2020-12-21 15:00 | Outpatient (RCR) | payer MEDICARE, OTHER, SELFPAY ==
[2020-07-12 10:44] VITALS: BMI 46.0
--- NOTE | 2020-08-27 14:00 | HP.PTEVAL_ITS ---
Patient's Visit Information MACKENZIE AKHTAR is a 64 year old F referred to Physical Therapy by MOHSEN MURGUIA with a diagnosis of R TKA. Date of Evaluation: 08/27/20 Physical Therapist: Jose Oneal, PT, ATC - Visit Plan Frequency: 2-3x /Week Duration: 4-6 Weeks Plan: R LE stretching and strengthening, balance and proprio, core strengthening, nustep, and HEP - Subjective Pt reports she had a R TKA performed in 2018. Pt reports she had 2 revisional surgeries after wards secondary to the prosthetic not working properly. Pt then experienced an infection in the right knee requiring debridement x 2 afterwards. Pt reports she basically hasnt walked for 3 years. Pt notes she had a CVA in the past which effected her R side. Pt notes she has had many falls in the past secondary to poor balance. Pt reports she believes that may have been a result of her CVA. Pt reports she has L LE numbness surrounding her incisional regions. Pt notes no sleep difficulty secondary to R knee pain. R knee pain 0/10 at rest, 2/10 with ambulating and with car transfers. Pt has a flight of stairs at home that she doesnt use now secondary to her current state. - Pain R knee Pain Intensity (Out of 10): 0 Pain Intensity Range: 2 - Objective Neuro: B LE sensation is WNL to light touch. B achilles reflex= 2/3. ROM: L knee 0-125 degrees. R knee 0-118 degrees. MMT: L knee flex= 22, ext= 26; R knee flex= 9, ext= 13.6. Transfers: TU sec. Girth: - Goals Goal 1:: Increase R LE strength x 5-10 #F to aid with stair negotiation Goal Time Frame: 4-6 Weeks Goal 2:: Pt will be able to ambulate 300' with use of WW and CGA to aid with community ambulation Goal 3:: Increase SDB x 1 grade to aid with preventing future falls Goal Time Frame: 4-6 Weeks Goal 4:: I with HEP Goal Time Frame: 4-6 Weeks - Rehabilitation Potential Physical Therapy Diagnosis: R knee pain, weakness, and limited ROM secondary to R TKA Rehabilitation Potential: Good - Anticipated Interventions Patient/Client Instruction: Educate patient on: Condition, Plan of Care For the Purpose of:: To improve self management Therapeutic Exercise to Include: Strength training, Endurance training, Balance training, Flexibilty training, Gait and locomotor training, Dynamic Lumbar Stabilization For the Purpose of:: To decrease pain, To increase ROM, To improve muscle performance and motor function Thank you for the opportunity to evaluate your patient. For Medicare and Medicare HMO plans, please review the plan of care and approve it. It will need to be FAXED BACK to us at [phone] for Medicare purposes. For Medicare only, by signing this I certify the plan of care. Please let me know if there are questions or concerns regarding this plan of care. Physician Signature:__ Date:
--- NOTE | 2020-11-18 13:07 | HP.PTREVAL ---
MOHSEN MURGUIA, It has been my pleasure to treat MACKENZIE AKHTAR over the last 18 visits for R TKA Gait belt and CGA at all times secondary to falls. Please see the progress note below for an update on the physical therapy plan of care! Subjective: Pt reports she has noticed increased stability and strength Objective/Function: R knee pain 0/10. R knee MMT: flex= 21.7, ext= 19.2 #F. Pt is able to ambulate with WW 340' and CGA x 1. Pt is able to stand for 26 sec with EC. Pt is progressing well with Rx goals. still lacks functional balance and R LE strength Plan Plan: Cont with POC focusing on strenth and balance Balance/Gait/Functional tests - Balance/Special Test Scores Lower Extremity Functional Score: 31 Goals Goal 1:: Increase R LE strength x 5-10 #F to aid with stair negotiation Goal Time Frame: 4-6 Weeks Goal Progress: Goal Met Goal 2:: Pt will be able to ambulate 300' with use of WW and CGA to aid with community ambulation Goal Time Frame: 4-6 Weeks Goal Progress: Goal Met Goal 3:: Increase SDB x 1 grade to aid with preventing future falls Goal Time Frame: 4-6 Weeks Goal Progress: Progressing Goal 4:: I with HEP Goal Time Frame: 4-6 Weeks Goal 5:: Pt will be able to ambulate 600' with LRD to aid wioth community ambulation Goal Time Frame: 2-4 Weeks Goal Progress: Progressing Anticipated Interventions Patient/Client Instruction: Educate patient on: Condition, Plan of Care For the Purpose of:: To improve self management Therapeutic Exercise to Include: Strength training, Endurance training, Balance training, Flexibilty training, Gait and locomotor training, Dynamic Lumbar Stabilization For the Purpose of:: To decrease pain, To increase ROM, To improve muscle performance and motor function Please do not hesitate to contact me at [phone] by phone or if you have questions or concerns regarding this new plan of care! Sincerely, Jose Oneal, PT, ATC
--- NOTE | 2020-12-21 16:17 | HP.PTDCSUM ---
It has been my pleasure to treat MACKENZIE AKHTAR referred by MOHSEN MURGUIA, with the diagnosis of R TKA Gait belt and CGA at all times secondary to falls for a total of 23 visit(s). Discharge Date: Please see the following information for a summary of their discharge status. Subjective: No right knee pain today. Pt was very sore last night. R knee Pain Intensity (Out of 10): 0 % Improvement: 25 Objective/Function: R knee pain 0/10. R knee MMT: flex= 19.8, ext= 14. R knee ROM: 0-36-100. Pt is I with HEP Goal 1:: Increase R LE strength x 5-10 #F to aid with stair negotiation Goal Progress: Goal Met Goal 2:: Pt will be able to ambulate 300' with use of WW and CGA to aid with community ambulation Goal Progress: Goal Met Goal 3:: Increase SDB x 1 grade to aid with preventing future falls Goal Progress: Progressing Goal 4:: I with HEP Goal 5:: Pt will be able to ambulate 600' with LRD to aid wioth community ambulation Goal Progress: Progressing Plan: Discontinue to Health and wellness program If there are questions or concerns regarding this patient's physical therapy, please feel free to call me at [phone]. Thank you for the referral of this patient. Sincerely, Jose Oneal, PT, ATC Balance/Gait/Functional tests - Balance/Special Test Scores Lower Extremity Functional Score: 25
== END 2020-12-21 19:00 | disposition home or self-care (01) ==
LOC: PT 15:00
PROVIDERS: PCP Family Medicine
DX: Z47.1 Aftercare following joint replacement surgery (principal); Z96.651 Presence of right artificial knee joint
CPT/HCPCS: 97016; 97110; 97161; 97164; 97530

== ENCOUNTER → 2021-03-14 10:17 | Outpatient (CLI) | payer MEDICARE, OTHER, SELFPAY ==
[2021-03-14 12:29] LABS: Erythrocyte Sedimentation Rate 66 mm/hr (0-30)
[2021-03-14 12:31] LABS: Lactic Acid 1.4 mmol/L (0.4-1.9)
[2021-03-14 12:32] LABS: Absolute Lymphocyte Count 1.92 X10^3/uL (0.83-4.51); Basophil# 0.06 X10^3/uL; Basophil% 0.6 % (0-1); Eosinophil# 0.15 X10^3/uL; Eosinophils% 1.5 % (0-5); Hematocrit 39.4 % (37-47); Hemoglobin 12.2 g/dL (12.0-15.0); Lymphocyte # 1.92 X10^3/ul (0.83-4.51); Lymphocyte % 19.2 % (19-41); Mean Corpuscular Hgb 26.1 pg (27.0-32.0); Mean Corpuscular Volume 84.4 fL (81-99); Mean Platelet Vol. 9.6 fl (6.2-12.0); Monocyte# 0.81 X10^3/uL; Monocyte% 8.1 % (0-10); NRBC Flagged by Analyzer 0 % (0-5); Neutrophil # 7.04 X10^3/uL (2.7-7.7); Neutrophil % 70.2 % (47-70); Platelet Count 474 K/mm3 (150-450); RBC Distribution Width SD 45.8 fl (35.1-43.9); Red Blood Count 4.67 M/mm3 (4.2-5.4)
== END ==
PROVIDERS: PCP Family Medicine; Referring Provider Orthopaedic Surgery; Visit Provider Orthopaedic Surgery
DX: G89.29 Other chronic pain (principal); M25.561 Pain in right knee
CPT/HCPCS: 36415; 83605; 85025; 85652; 86140

== ENCOUNTER 2021-03-17 14:46 | Observation (INO) | payer MEDICARE, OTHER, SELFPAY ==
[2021-03-17 14:46] VITALS: BP 152/78; PULSE 75; RESP 16; TEMP 36.1; O2SAT 97; BMI 43.0
--- NOTE | 2021-03-17 15:00 | RAD_ITS ---
STUDY: X-RAY - RIGHT ANKLE REASON FOR EXAM: Female, 65 years old. PAIN AFTER FALL TECHNIQUE: 3 view(s) of the ankle. COMPARISON: Comparison is made with prior study dated 04/25/2019. FINDINGS: The patient is status post open reduction internal fixation of the distal fibula. This is unchanged. There now is evidence of a nondisplaced transverse fracture of the medial malleolus. Degenerative changes of the tibial talar joint. Normal visualized talus and calcaneus. The visualized subtalar, talonavicular, calcaneocuboid and tarsal articulations are normal. Soft tissue swelling. RAD/Ankle min 3 Views IMPRESSION: Nondisplaced transverse fracture of the medial malleolus with overlying soft tissue swelling. Electronically Signed: Boone Castro MD at 15:16 EST , Service support ,
[2021-03-17 16:55] VITALS: PULSE 68; RESP 15; O2SAT 97
--- NOTE | 2021-03-17 17:05 | ED.VIS.LOWEX ---
HPI History of Present Illness Chief Complaint: Lower Extremity Injury Informant: patient Occured/Mechanism Mechanism/Context: Yes fall Onset/Context/Timing Onset: Today Current Severity: Moderate Maximum Severity: Moderate Narrative Narrative: Patient presents with right ankle pain after a fall. She has had prior right ankle fracture dislocation with surgery. She is had multiple surgeries on her right knee and is unable to fully extend. She does have chronic right-sided weakness from prior stroke. Patient states today she was leaning on a railing trying to get around with a railing broke and she fell. She denies any other injury from her fall. [facility] Medical History Anxiety Atherosclerotic heart disease of [place] coronary artery without angina pectoris CVA (cerebral vascular accident) Depression Essential hypertension Heart disease Hyperlipidemia Insomnia Morbid obesity Nocturnal hypoxemia Presence of stent in coronary artery (~02/27/12) Pulmonary hypertension Right sided cerebral infarction Suicide attempt by drug ingestion Home Medications clopidogrel 75 mg PO QHS 08/25/15 [History Last Taken 07/11/20] atorvastatin 40 mg PO QHS 01/27/16 [History Last Taken 07/04/17 22:00 40 mg] duloxetine 60 mg PO DAILY 07/05/17 [History Last Taken 07/11/20] ranitidine HCl 150 mg tablet 150 mg PO QDAY 10/31/17 [History Last Taken 07/11/20] amlodipine 10 mg PO QDAY 10/31/18 [History Last Taken 07/11/20] folic acid 1 mg PO DAILY 12/13/18 [History Last Taken 07/11/20] metformin 1,000 mg PO BIDCM 12/13/18 [History Last Taken 07/11/20] lisinopril 20 mg tablet 20 mg PO BID #180 tab 12/24/18 [Rx Last Taken 07/11/20] ferrous sulfate 150 mg PO BID 04/23/19 [History Last Taken Unknown] polyethylene glycol 3350 17 g PO DAILY PRN 04/23/19 [History Last Taken Unknown] alprazolam 1 mg PO BID #6 tab 04/25/19 [Rx Last Taken 07/11/20] oxycodone-acetaminophen 1 tab PO Q4H PRN PRN 04/28/19 [History Last Taken Unknown] acetaminophen 1,000 mg PO Q6H PRN PRN tab 04/30/19 [Rx Last Taken Unknown] ascorbate calcium (vitamin C) 500 mg tablet 500 mg PO DAILY 06/16/20 [History Last Taken 07/11/20] aspirin 81 mg tablet,delayed release 81 mg PO DAILY tab 06/16/20 [History Last Taken 07/11/20] duloxetine 30 mg capsule,delayed release 30 mg PO QPM #30 cap 06/17/20 [Rx Last Taken 07/11/20] pregabalin 75 mg PO TID 07/12/20 [History Last Taken 07/11/20] tizanidine 4 mg PO TID PRN 07/12/20 [History Last Taken 07/11/20] metoprolol tartrate 25 mg tablet 25 mg PO BID #180 tab 09/20/20 [Rx Last Taken Unknown] Allergy/AdvReac Type Severity Reaction Status Date / Time ciprofloxacin [From Cipro] Allergy Unknown Verified 03/17/21 14:48 escitalopram oxalate Allergy Unknown Verified 03/17/21 14:48 [From Lexapro] heparin Allergy real Verified 03/17/21 14:48 anxious mupirocin [From Bactroban] Allergy Unknown Verified 03/17/21 14:48 trazodone Allergy knocked Verified 03/17/21 14:48 me out adhesive tape AdvReac Rash Verified 03/17/21 14:48 Family History Mother CAD (coronary artery disease) Hypertension Father CAD (coronary artery disease) Brother Myocardial infarction Hypertension Sister Hypertension Other CVA (cerebral vascular accident) Surgical History H/O arthroscopy of right knee History of ankle surgery History of cholecystectomy History of foot surgery History of hernia repair History of hysterectomy History of knee replacement History of tonsillectomy Presence of coronary angioplasty implant and graft (~02/27/12) Status post total right knee replacement (~12/25/18) Social History current occupational status: retired Smoking Status: Never smoker Electronic Cigarette Use: not used second hand exposure: No alcohol intake: former substance use type: does not use and other details: Uses CBD oil infrequently caffeine: Yes Type: carbonated beverages and tea ROS ROS ED Constitutional Constitutional ED: Denies chills or fever(s) Eyes Eyes: Denies change in vision ENT ENT ED: Denies sore throat Cardiovascular Cardiovascular: Denies chest pain Respiratory/Chest Respiratory/Chest: Denies cough or dyspnea Gastrointestinal Gastrointestinal: Denies abdominal pain, diarrhea, nausea or vomiting Musculoskeletal Musculoskeletal: Reports arthralgias; Denies back pain Integumentary Denies rash Neurologic Neurologic: Reports weakness; Denies headache(s) Allergic/Immunologic Allergic/Immunologic ED: Denies urticaria EXAM Physical Exam Const Vital Signs: 03/17/21 14:46 03/17/21 16:55 Temperature 97 F L Temperature Source Temporal Pulse Rate 75 68 Respiratory Rate 16 15 Blood Pressure 152/78 H Blood Pressure Mean 102 Pulse Ox 97 97 Oxygen Delivery Method Room Air Room Air Positive obese Nutritional Appearance: obese Eyes PERRL Neck full ROM and supple Chest Wall inspection of chest normal and palpation of chest normal Resp normal respiratory effort and clear to auscultation bilaterally Cardio regular rate and regular rhythm GI non-tender Palpation: soft Extremity Extremity Narrative: Old prior surgical scar noted to the right knee. No focal tenderness to this area. Mild tenderness diffusely to the right ankle. Strong distal pulses with normal cap refill distally. Good sensation on testing. Neuro oriented x3 Sensorium / Orientation: alert MDM MDM MDM Narrative Medical decision making narrative: Right ankle x-rays were obtained per nursing protocol. Radiography Diagnostic Testing: Clinical Impression(s) from Imaging Studies Ankle X-Ray 03/17/21 15:00 IMPRESSION: Nondisplaced transverse fracture of the medial malleolus with overlying soft tissue swelling. Electronically Signed: Boone Castro MD at 15:16 EST , Service support , Treatment and Re-Evaluation Comments:: Ankle x-ray reveals nondisplaced transverse fracture of the medial malleolus. X-rays reviewed with the patient. She was advised that she would need to be nonweightbearing on the right lower extremity. She will be placed in a boot. Family does not feel they can get her home tonight would prefer at least overnight observation for pain control and evaluation by physical therapy. She may require a short stay for PT until she can get around better. I will grab screening labs and talk to hospitalist for admission. Discharge Plan Triage Chief Complaint: Lower Extremity Injury ED Provider: Bailee Constantino Dx/Rx/DC Orders Clinical Impression: Ankle fracture, right Prescriptions: No Action ranitidine HCl 150 mg tablet 150 mg PO QDAY RF: 0 ascorbate calcium (vitamin C) 500 mg tablet 500 mg PO DAILY RF: 0 aspirin 81 mg tablet,delayed release (DR/EC) 81 mg PO DAILY RF: 0 duloxetine 30 mg capsule,delayed release(DR/EC) 30 mg PO QPM Qty: 30 RF: 1 clopidogrel 75 MG tablet 75 mg PO QHS RF: 0 atorvastatin 40 MG tablet 40 mg PO QHS RF: 0 duloxetine 60 MG capsule,delayed release(DR/EC) 60 mg PO DAILY RF: 0 amlodipine 10 MG tablet 10 mg PO QDAY RF: 0 metformin 500 MG tablet 1,000 mg PO BIDCM RF: 0 folic acid 1 MG tablet 1 mg PO DAILY RF: 0 ferrous sulfate 325 MG tablet 150 mg PO BID RF: 0 polyethylene glycol 3350 17 GM packet 17 g PO DAILY PRN (Reason: Constipation) RF: 0 alprazolam 1 MG tablet 1 mg PO BID Qty: 6 RF: 0 oxycodone-acetaminophen 1 TABLET tablet 1 tab PO Q4H PRN PRN (Reason: Pain) RF: 0 acetaminophen 500 MG tablet 1,000 mg PO Q6H PRN PRN (Reason: Pain Score 1-5/10) RF: 0 pregabalin 50 MG capsule 75 mg PO TID RF: 0 tizanidine 4 MG capsule 4 mg PO TID PRN (Reason: Spasms) RF: 0 lisinopril 20 mg tablet 20 mg PO BID Qty: 180 RF: 3 metoprolol tartrate 25 mg tablet 25 mg PO BID Qty: 180 RF: 0 Primary Care Provider: Sudheer Lion Referrals: Sudheer Lion MD [Primary Care Provider] - Disposition Disposition: Acute Care Hospital [facility]
[2021-03-17] MEDS: Ondansetron 4 MG/2 ML Vial IV (17:28)
[2021-03-17] MEDS: Morphine 4 MG/ML Syringe IV (17:28)
[2021-03-17 17:35] LABS: Absolute Lymphocyte Count 1.67 X10^3/uL (0.83-4.51); Absolute Neutrophil Count 9.3 X10^3/uL (2.0-7.7); Basophil# 0.09 X10^3/uL; Basophil% 0.8 % (0-1); Eosinophil# 0.07 X10^3/uL; Eosinophils% 0.6 % (0-5); Hematocrit 41.8 % (37-47); Hemoglobin 12.7 g/dL (12.0-15.0); Lymphocyte # 1.67 X10^3/ul (0.83-4.51); Lymphocyte % 14.2 % (19-41); Mean Corp Hgb Conc 30.4 g/dL (32-36); Mean Corpuscular Hgb 25.5 pg (27.0-32.0); Mean Corpuscular Volume 83.8 fL (81-99); Mean Platelet Vol. 9.2 fl (6.2-12.0); Monocyte# 0.64 X10^3/uL; Monocyte% 5.4 % (0-10); NRBC Flagged by Analyzer 0 % (0-5); Neutrophil # 9.27 X10^3/uL (2.7-7.7); Neutrophil % 78.7 % (47-70); Platelet Count 399 K/mm3 (150-450); RBC Distribution Width CV 14.8 % (11.6-14.6); RBC Distribution Width SD 44.6 fl (35.1-43.9); Red Blood Count 4.99 M/mm3 (4.2-5.4); White Blood Count 11.8 K/mm3 (4.4-11.0)
[2021-03-17 17:49] LABS: Anion Gap 9 (5-15); BUN 20 mg/dL (7-18); Calcium,Total 10.5 mg/dL (8.5-10.1); Chloride 104 mmol/L (98-107); Creatinine, Serum 1.05 mg/dL (0.55-1.02); EST Glomerular Filtration Rate 56 mL/min (>60); Est Glom Filt Rate - Afr Amer 67 mL/min (>60); Estimated Creatinine Clearance 41.12 ml/min; Glucose 122 mg/dL (74-106); Potassium 4.4 mmol/L (3.5-5.1); Sodium Level 137 mmol/L (136-145)
--- NOTE | 2021-03-17 17:58 | PCM.HP.STD ---
HPI - General General Date of Admission: 03/17/21 HPI Narrative MACKENZIE AKHTAR, is a 65 F who presented to the urgency department at [facility] on 03/17/2021 with right ankle pain after a fall. She has had a previous right ankle fracture with dislocation and required surgery at that time. She has a history of chronic right-sided weakness with prior stroke and has multiple falls at home although states that she is learned how to fall without hurting herself better. She typically gets around by leaning on railings but unfortunately the railing broke today and she was unable to pad her fall appropriately. Upon presentation she complains of right ankle pain and an x-ray was performed and shows a nondisplaced transverse fracture over the medial malleolus. She was advised that she would need to be nonweightbearing on her right lower extremity and was placed in a boot. Per discussion with the ER physician this is nonoperative but the patient would like to follow-up as an outpatient with Dr. Mariee when she is able to be discharged. There is some concern that she may need some short-term placement for physical therapy until she is able to get around better and be able to be discharged home. She will be admitted to [facility] Medical History Anxiety Atherosclerotic heart disease of [place] coronary artery without angina pectoris CVA (cerebral vascular accident) Depression Essential hypertension Heart disease Hyperlipidemia Insomnia Morbid obesity Nocturnal hypoxemia Presence of stent in coronary artery (~02/27/12) Pulmonary hypertension Right sided cerebral infarction Suicide attempt by drug ingestion Home Medications clopidogrel 75 mg PO QHS 08/25/15 [History Last Taken 03/16/21] atorvastatin 40 mg PO QHS 01/27/16 [History Last Taken 03/16/21] duloxetine 60 mg PO DAILY 07/05/17 [History Last Taken 03/16/21] amlodipine 10 mg PO DAILY 10/31/18 [History Last Taken 03/16/21] folic acid 1 mg PO DAILY 12/13/18 [History Last Taken 03/16/21] polyethylene glycol 3350 17 g PO DAILY PRN 04/23/19 [History Last Taken 03/15/21] oxycodone-acetaminophen 1 tab PO Q4H PRN PRN 04/28/19 [History Last Taken 03/16/21] aspirin 81 mg tablet,delayed release 81 mg PO DAILY tab 06/16/20 [History Last Taken 03/16/21] tizanidine 4 mg PO TID PRN 07/12/20 [History Last Taken 03/15/21] metoprolol tartrate 25 mg tablet 25 mg PO BID #180 tab 09/20/20 [Rx Last Taken 03/16/21] alprazolam 0.5 - 1 mg PO BID 03/17/21 [History Last Taken 03/16/21] diphenhydramine-acetaminophen [Tylenol PM Extra Strength] 2 tab PO QHS PRN 03/17/21 [History Last Taken 03/16/21] famotidine 20 mg PO DAILY 03/17/21 [History Last Taken 03/16/21] lisinopril 20 mg PO DAILY 03/17/21 [History Last Taken 03/16/21] pregabalin 75 mg PO BID 03/17/21 [History Last Taken 03/16/21] Allergy/AdvReac Type Severity Reaction Status Date / Time ciprofloxacin [From Cipro] Allergy Unknown Verified 03/17/21 14:48 escitalopram oxalate Allergy Unknown Verified 03/17/21 14:48 [From Lexapro] heparin Allergy real Verified 03/17/21 14:48 anxious mupirocin [From Bactroban] Allergy Unknown Verified 03/17/21 14:48 trazodone Allergy knocked Verified 03/17/21 14:48 me out adhesive tape AdvReac Rash Verified 03/17/21 14:48 Family History Mother CAD (coronary artery disease) Hypertension Father CAD (coronary artery disease) Brother Myocardial infarction Hypertension Sister Hypertension Other CVA (cerebral vascular accident) Surgical History H/O arthroscopy of right knee History of ankle surgery History of cholecystectomy History of foot surgery History of hernia repair History of hysterectomy History of knee replacement History of tonsillectomy Presence of coronary angioplasty implant and graft (~02/27/12) Status post total right knee replacement (~12/25/18) Social History current occupational status: retired Smoking Status: Never smoker Electronic Cigarette Use: not used second hand exposure: No alcohol intake: former substance use type: does not use and other details: Uses CBD oil infrequently caffeine: Yes Type: carbonated beverages and tea ROS Constitutional Constitutional: Denies anorexia, change in weight, chills, fatigue, fever(s), malaise, night sweats, weakness or other Eyes Eyes: Denies blurry vision, change in eye color, change in vision, discharge from eye(s), double vision, erythema, eye pain, loss of vision or other ENT HEENT: Denies abnormal hearing, dysphagia, ear pain, epistaxis, headache(s), hearing loss, nasal congestion, nasal discharge, post nasal drip, sinus pressure, sore throat or other Cardiovascular Cardiovascular: Denies chest pain, claudication, dyspnea on exertion, edema, lightheadedness, orthopnea, palpitations, paroxysmal nocturnal dyspnea, rapid heart rate, syncope or other Respiratory/Chest Respiratory/Chest: Denies cough, dyspnea, excessive phlegm production, hemoptysis, productive cough, shortness of breath at rest, shortness of breath with exertion, wheezing or other Gastrointestinal Gastrointestinal: Denies abdominal pain, coffee ground emesis, constipation, diarrhea, dyspepsia, hematemesis, hematochezia, loose stools, melena, nausea, vomiting or other Genitourinary Genitourinary: Denies burning urination, difficulty urinating, dysuria, hematuria, nocturia, urinary frequency, urinary hesitancy, urinary incontinence, urinary urgency or other Musculoskeletal Musculoskeletal: Reports joint pain and joint swelling Neurologic Neurologic: Reports abnormal gait and focal weakness; Denies abnormal speech, confusion, disequilibrium, dizziness, headache(s), numbness, paresthesias, seizure-like activity, seizures, syncope, tingling, tremor(s) or other Psychiatric Psychiatric: Denies anxiety, depression, homicidal ideation, suicidal ideation or other Endocrine Endocrinology: Denies change in body appearance, cold intolerance, excessive sweating, heat intolerance, polydipsia, polyuria or other Hematologic/Lymphatic Hematologic/Lymphatic: Denies anemia, easy bleeding, easy bruising, lymphadenopathy or other Allergic/Immunologic Allergic/Immunologic: Denies rhinitis, hives, eczemia, asthma or other Vital Signs Vital Signs Vital Signs: 03/17/21 14:46 03/17/21 16:55 Temperature 97 F L Temperature Source Temporal Pulse Rate 75 68 Respiratory Rate 16 15 Blood Pressure 152/78 H Blood Pressure Mean 102 Pulse Ox 97 97 Oxygen Delivery Method Room Air Room Air Weight Weight: 106.594 kg Body Mass Index (BMI) 43.0 Physical Exam Const alert, oriented x3 and no apparent distress Constitutional Narrative: Upper middle-aged white female lying in bed, at bedside, appears comfortable nontoxic, patient appears older than stated age General Appearance: cooperative HEENT normocephalic, head/scalp atraumatic, hearing grossly normal bilaterally and moist oral mucous membranes HEENT Narrative: Mallampati 2, dentures in place, no thrush Resp normal respiratory effort, no retractions, no use of accessory muscles and clear to auscultation bilaterally Auscultation: Negative for crackles, rales, rhonchi or wheezes Cardio regular rate, regular rhythm, S1 normal heart sound, S2 normal heart sound, no murmurs, no rub, no gallops, no clicks and no JVD GI normal to inspection, nondistended, normoactive bowel sounds, soft to palpation, non-tender and non-distended Extremity no clubbing, cyanosis or edema Extremity Narrative: Right knee with flexion contracture and extensive anterior knee scarring, limited mobility with flexion and extension, right ankle tender at bilateral malleoli with small amount of swelling, good cap refill Peripheral Pulses: Yes pulses 2+ throughout Skin Skin Narrative: Scattered actinic keratosis below knees bilaterally right greater than left Neuro oriented x3 and CN's II-XII intact bilaterally Neuro Narrative: Right-sided hemiparesis Sensorium / Orientation: awake and alert Speech: speech normal Psych affect normal Results Lab / Micro Data Attestation: I reviewed the patient's lab results. Result Diagrams: 03/17/21 17:25 03/17/21 17:25 Labs: Laboratory Results - last 24 hr 03/17/21 17:25: WBC 11.8 H, RBC 4.99, Hgb 12.7, Hct 41.8, MCV 83.8, MCH 25.5 L, MCHC 30.4 L, RDW Std Deviation 44.6 H, RDW Coeff of Uriel 14.8 H, Plt Count 399, MPV 9.2, Immature Gran % (Auto) 0.300, Neut % (Auto) 78.7 H, Lymph % (Auto) 14.2 L, [place] % (Auto) 5.4, Eos % (Auto) 0.6, Baso % (Auto) 0.8, Absolute Neuts (auto) 9.3 H, Absolute Lymphs (auto) 1.67, Nucleated RBC % 0 03/17/21 17:25: Sodium 137, Potassium 4.4, Chloride 104, Carbon Dioxide 24.0, Anion Gap 9, BUN 20 H, Creatinine 1.05 H, Estim Creat Clear Calc 41.12, Est GFR (MDRD) Af Amer 67, Est GFR (MDRD) Non-Af 56 L, BUN/Creatinine Ratio 19.0, Glucose 122 H, Calcium 10.5 H Radiology Impression Ankle X-Ray 03/17/21 15:00 IMPRESSION: Nondisplaced transverse fracture of the medial malleolus with overlying soft tissue swelling. Electronically Signed: Boone Castro MD at 15:16 EST , Service support , Assessment & Plan Assessment/Plan (1) Closed right ankle fracture: PLAN: Assessment: Nondisplaced transverse fracture of the medial malleolus Debility Inability to ambulate Hypercalcemia Falls DM-2 CAD status post stenting HPL Hypertension History of stroke with right hemiparesis PAH who group 3 Urinary incontinence with overactive bladder Morbid obesity with a BMI of 43 GERD Diabetic neuropathy Chronic pain OA Depression Anxiety Plan: Admit to medical surgical floor -Boot placed in the emergency department -Continue home pain medication with morphine for breakthrough -If morphine as needed after ankle is stabilized will need to uptitrate home regimen -Nonweightbearing -Check vitamin D level, check PTH, check ionized calcium -Follow-up as an outpatient with orthopedic surgery -Consider TCU placement at discharge--> will discuss with case management tomorrow -Patient states she would be willing to go to TCU if needed -Consult PT/OT -Continue home medications Charges/Coding Visit Charges Inpatient E&M: 52257 Init Hosp L2
[2021-03-17 18:40] VITALS: BP 172/61; PULSE 68; RESP 18; TEMP 36.6; O2SAT 95
[2021-03-17 19:20] VITALS: BMI 45.7
--- NOTE | 2021-03-17 19:20 | PCS.PANDOC ---
PANDEMIC DOCUMENTATION INITIATED: Date: 03/17/2021 Time: 1914
[2021-03-17 20:03] VITALS: BP 171/62; PULSE 77; RESP 18; TEMP 36.6; O2SAT 92
[2021-03-17 20:29] VITALS: O2SAT 91
--- NOTE | 2021-03-17 22:06 | NURSING ---
Per patient she has had covid vaccine, but she doesn't know which one or when. Perhaps can get information from 03/18.
[2021-03-17 22:22] LABS: Vitamin D,25 Hydroxy 32.3 ng/mL
[2021-03-17 22:38] VITALS: BP 171/62; PULSE 77
[2021-03-17] MEDS: Clopidogrel Bisulfate 75 MG Tablet PO (22:38)
[2021-03-17] MEDS: Metoprolol Tartrate 25 MG Tablet PO (22:38)
[2021-03-17] MEDS: Pregabalin 75 MG Capsule PO (22:38)
[2021-03-17] MEDS: ALPRAZolam 0.5 MG Tablet PO (22:39)
[2021-03-17] MEDS: tiZANidine HCl 2 MG Tablet 4 MG PO (22:39)
[2021-03-17] MEDS: Atorvastatin Calcium 40 MG Tablet PO (22:39)
[2021-03-17] MEDS: Enoxaparin 40 MG/0.4 ML Syringe SC (22:40)
[2021-03-17] MEDS: 0.9% Saline Lock 10 ML Syringe IV (22:40)
--- NOTE | 2021-03-17 23:51 | NURSING ---
pt insisted she is not wearing boot on her right leg pt is aware of what it is for but had winch operator take it off
[2021-03-18] MEDS: 0.9% Saline Lock 10 ML Syringe IV ×2 (00:27→13:44)
[2021-03-18] MEDS: Morphine 2 MG/ML Syringe IV ×2 (00:27→13:44)
[2021-03-18 02:09] VITALS: BP 124/55; PULSE 60; RESP 18; TEMP 36.1; O2SAT 96
[2021-03-18] MEDS: oxyCODONE 5 MG Tablet PO ×3 (02:25→16:44)
[2021-03-18 07:55] VITALS: BP 125/57; PULSE 63; RESP 18; TEMP 36.9; O2SAT 90
[2021-03-18 08:07] LABS: PTHIN 51.2 pg/mL (18.4-80.1)
[2021-03-18] MEDS: Aspirin E.C. 81 MG Tablet PO (08:09)
[2021-03-18] MEDS: Folic Acid 1 MG Tablet PO (08:09)
[2021-03-18 09:59] VITALS: PULSE 65
[2021-03-18] MEDS: Enoxaparin 40 MG/0.4 ML Syringe SC (09:59)
[2021-03-18] MEDS: Pregabalin 75 MG Capsule PO (09:59)
[2021-03-18] MEDS: amLODIPine 10 MG Tablet PO (09:59)
[2021-03-18] MEDS: Metoprolol Tartrate 25 MG Tablet PO (09:59)
[2021-03-18] MEDS: Cholecalciferol (VIT D3) 25 MCG TABLET (1,000 UNITS) PO (09:59)
[2021-03-18] MEDS: DULoxetine Hcl 60 MG Capsule PO (09:59)
[2021-03-18] MEDS: Lisinopril 20 MG Tablet PO (09:59)
[2021-03-18] MEDS: Glucerna Shake 120 ML LIQUID PO ×2 (10:00→13:50)
[2021-03-18] MEDS: ALPRAZolam 0.5 MG Tablet PO (10:00)
[2021-03-18] MEDS: Famotidine 20 MG Tablet PO (10:01)
[2021-03-18 10:06] VITALS: BP 139/68; PULSE 69; RESP 18; TEMP 36.5; O2SAT 92
--- NOTE | 2021-03-18 10:58 | CASEMGMT ---
Social Work Assessment Referral Date: 03/18/2021 Date of Assessment: 03/18/2021 Reason for consult: SNF/TCU Informant: MD CHAKRABORTY reviewed chart. Pt was interested in TCU. SW placed a call to [facility] with TCU and provided referral. TCU is able to accept pt today. Personal Status: SW met with pt to complete initial assessment. Pt is alert and orientated and engages in conversation appropriately. Living Arrangements: Pt states that she lives with her and daughter Siobhan in a one story home with 4-5 steps to enter. Pt states she used to have railings by the steps but one of them broke which led to her breaking her ankle. Pt states her is supposed to be repairing the railings and also putting a ramp in. ADLS: Pt states her and daughter assists with all ADLS. Transportation: Pt's Deyvi PCP: Sudheer Lion Pharmacy: [facility] Advanced Directives: Pt states she has completed HCPOA and LW and states her HCPOA is her son Deyvi DME: Two walkers an a wheelchair. Pt states she uses her walker all the time and cannot get around without the walker HHC: Pt states she has had HHC in the past, cannot remember the name of agency SNF: [facility], [facility] Hx: Pt states she has history of Anxiety, states she has never been in therapy/counseling. Pt states she is on Anxiety Medications that are prescribed through her PCP. Pt states she thinks her Anxiety is currently well managed. Substance Abuse Hx: Pt denied SW spoke with pt regarding discharge plans. Patient was provided a list of SNF providers including quality and resource use data and consistent with the patient?s preferred geographic region, medical needs, and insurance network. Pt agreeable to [facility] TCU. SW informed pt that [facility] is able to accept pt and she will be discharged there today. Pt states understanding. PAMLER updated physician. Plan: TCU today Jaymie Reynolds AUTHORIZATION COORDINATOR, PHARMACY STUDENT
--- NOTE | 2021-03-18 12:07 | DS.PCM_ITS ---
Providers Date of Admission: 03/17/21 Primary Care Physician: Dr. Sudheer Lion MD Reason For Visit: R ANKLE FRACTURE/DEBILITY Diagnosis Discharge Diagnosis (1) Closed right ankle fracture: Status: Acute Code(s): S82.891A - Other fracture of right lower leg, initial encounter for closed fracture Medications at Discharge Home Medications clopidogrel 75 mg PO QHS 08/25/15 atorvastatin 40 mg PO QHS 01/27/16 duloxetine 60 mg PO DAILY 07/05/17 amlodipine 10 mg PO DAILY 10/31/18 folic acid 1 mg PO DAILY 12/13/18 polyethylene glycol 3350 17 g PO DAILY PRN 04/23/19 oxycodone-acetaminophen 1 tab PO Q4H PRN PRN 04/28/19 aspirin 81 mg tablet,delayed release 81 mg PO DAILY tab 06/16/20 tizanidine 4 mg PO TID PRN 07/12/20 metoprolol tartrate 25 mg tablet 25 mg PO BID #180 tab 09/20/20 alprazolam 0.5 - 1 mg PO BID 03/17/21 diphenhydramine-acetaminophen [Tylenol PM Extra Strength] 2 tab PO QHS PRN 03/17/21 famotidine 20 mg PO DAILY 03/17/21 lisinopril 20 mg PO DAILY 03/17/21 pregabalin 75 mg PO BID 03/17/21 cholecalciferol (vitamin D3) 25 mcg PO DAILY #0 tab 03/18/21 enoxaparin 40 mg SUBCUT BID #0 ml 03/18/21 sennosides-docusate sodium [Stool Softener-Stimulant Laxat] 2 tab PO BID PRN PRN #0 tab 03/18/21 Hospital Course Operations None Procedures None Summary of Care Provided Minutes Spent on Discharge: 25 Hospital Course: Mrs. Carrasquillo is a 65-year-old white female who presents emergency department [facility] on 03/17/2021 with right ankle pain after a fall. She has had previous right ankle fracture with dislocation required surgery at that time. She has a history of chronic right-sided weakness due to a previous stroke and has had multiple falls although she states on admission she learned how to fall without hurting himself for the most part. She typically gets around by leaning on railings but unfortunately the railing broke and she was not able to adjust how she felt. Upon presentation she was complaining of right ankle pain and an x-ray revealed a nondisplaced transverse fracture of the medial malleolus. She was advised that she would need to be nonweightbearing on her right lower extremity and was placed in a boot. Her vitals and lab work were unremarkable on admission. Unfortunately, she was unable to ambulate well enough to get home and needed to be admitted the hospital for placement for continued rehab prior to discharge home. She was admitted to medical surgery and continued on pain medicine for pain management. She was also given a bowel regimen. She was able to be discharged in stable condition to TCU on 03/18/2021. She will need continued therapy services, pain management, bowel regimen, and will need to follow-up with Dr. Fournier in approximately 1 week for follow-up. Discharge diagnoses: Nondisplaced transverse fracture of the medial malleolus Debility Inability to ambulate Hypercalcemia Falls DM-2 CAD status post stenting HPL Hypertension History of stroke with right hemiparesis PAH who group 3 Urinary incontinence with overactive bladder Morbid obesity with a BMI of 43 GERD Diabetic neuropathy Chronic pain OA Depression Anxiety Physical Exam Const alert, oriented x3 and no apparent distress Constitutional Narrative: Morbidly obese upper middle-aged white female lying in bed, appears comfortable nontoxic, patient appears older than stated age General Appearance: cooperative, comfortable, well kempt and well developed Exam Limitations: no limitations Nutritional Appearance: morbidly obese HEENT normocephalic, head/scalp atraumatic, hearing grossly normal bilaterally and moist oral mucous membranes Resp normal respiratory effort, no retractions, no use of accessory muscles and clear to auscultation bilaterally Auscultation: Negative for crackles, rales, rhonchi or wheezes Cardio regular rate, regular rhythm, S1 normal heart sound, S2 normal heart sound, no murmurs, no rub, no gallops, no clicks and no JVD GI normal to inspection, nondistended, normoactive bowel sounds, soft to palpation, non-tender and non-distended Extremity no clubbing, cyanosis or edema Extremity Narrative: Right knee with flexion contracture and extensive anterior knee scarring, limited mobility with flexion and extension, right ankle tender at bilateral malleoli with small amount of swelling, good cap refill, no ecchymosis as of yet Skin Skin Narrative: Scattered actinic keratosis below knees bilaterally right greater than left Neuro oriented x3 and CN's II-XII intact bilaterally Neuro Narrative: Right-sided hemiparesis Sensorium / Orientation: awake and alert Speech: speech normal Psych affect normal Weight / BMI Weight Weight: 113.443 kg Body Mass Index (BMI) 45.7 ABG / Lab / Microbiology Data Result Diagrams: 03/17/21 17:25 03/17/21 17:25 Laboratory: Laboratory Results - last 24 hr 03/17/21 17:25: WBC 11.8 H, RBC 4.99, Hgb 12.7, Hct 41.8, MCV 83.8, MCH 25.5 L, MCHC 30.4 L, RDW Std Deviation 44.6 H, RDW Coeff of Uriel 14.8 H, Plt Count 399, MPV 9.2, Immature Gran % (Auto) 0.300, Neut % (Auto) 78.7 H, Lymph % (Auto) 14.2 L, [place] % (Auto) 5.4, Eos % (Auto) 0.6, Baso % (Auto) 0.8, Absolute Neuts (auto) 9.3 H, Absolute Lymphs (auto) 1.67, Nucleated RBC % 0 03/17/21 17:25: Sodium 137, Potassium 4.4, Chloride 104, Carbon Dioxide 24.0, Anion Gap 9, BUN 20 H, Creatinine 1.05 H, Estim Creat Clear Calc 41.12, Est GFR (MDRD) Af Amer 67, Est GFR (MDRD) Non-Af 56 L, BUN/Creatinine Ratio 19.0, Glucose 122 H, Calcium 10.5 H 03/17/21 17:25: PTH Intact 51.2 03/17/21 21:35: Vitamin D 25-Hydroxy 32.3 Microbiology: Microbiology 03/18/21 11:10 Nasal Secretion SARS-CoV-2 Antigen (Rapid) - Final Radiography Diagnostic Testing: Radiology Impression Ankle X-Ray 03/17/21 15:00 IMPRESSION: Nondisplaced transverse fracture of the medial malleolus with overlying soft tissue swelling. Electronically Signed: Boone Castro MD at 15:16 EST , Service support , D/C Instructions Discharge Diet: Low fat / Low cholesterol and 1800 Calorie Control Diet Weight Bearing Status: No weight bearing Keep extremity elevated above heart level: Right Leg Meaningful Use Info Meaningful Use Diagnoses (Choose all that apply): None applicable Discharge Plan Admission Admit Date/Time: 03/17/21 18:05 Primary Reason for Your Visit: Right ankle fracture Attending Provider: Taty Campos Primary Care Provider: Sudheer Lion Discharge Orders/Prescriptions Prescriptions: New enoxaparin 40 mg/0.4 mL Syringe 40 mg subcut BID Qty: 0 RF: 0 cholecalciferol (vitamin D3) 25 mcg (1,000 unit) Tablet 25 mcg PO DAILY Qty: 0 RF: 0 sennosides-docusate sodium [Stool Softener-Stimulant Laxat] 8.6-50 mg Tablet 2 tab PO BID PRN PRN (Reason: Constipation) Qty: 0 RF: 0 No Action aspirin 81 mg tablet,delayed release (DR/EC) 81 mg PO DAILY RF: 0 clopidogrel 75 MG tablet 75 mg PO QHS RF: 0 atorvastatin 40 MG tablet 40 mg PO QHS RF: 0 duloxetine 60 MG capsule,delayed release(DR/EC) 60 mg PO DAILY RF: 0 amlodipine 10 MG tablet 10 mg PO DAILY RF: 0 folic acid 1 MG tablet 1 mg PO DAILY RF: 0 polyethylene glycol 3350 17 GM packet 17 g PO DAILY PRN (Reason: Constipation) RF: 0 oxycodone-acetaminophen 1 TABLET tablet 1 tab PO Q4H PRN PRN (Reason: Pain) RF: 0 tizanidine 4 MG capsule 4 mg PO TID PRN (Reason: Spasms) RF: 0 famotidine 20 mg tablet 20 mg PO DAILY RF: 0 diphenhydramine-acetaminophen [Tylenol PM Extra Strength] 25-500 mg Tablet 2 tab PO QHS PRN (Reason: Sleep) RF: 0 pregabalin 75 mg capsule 75 mg PO BID RF: 0 alprazolam 1 MG tablet 0.5 - 1 mg PO BID RF: 0 lisinopril 20 mg tablet 20 mg PO DAILY RF: 0 metoprolol tartrate 25 mg tablet 25 mg PO BID Qty: 180 RF: 0 Referrals / Follow Up: Osmin Mariee DO [STAFF PHYSICIAN] - In 1 Week (R ankle fracture) Sudheer Lion MD [Primary Care Provider] - Within 1 Month Disposition Disposition (needs filled in before D/C Order can be placed): Nursing Home Facility Charges/Coding Visit Charges Inpatient E&M: 02703 SNF Disch
--- NOTE | 2021-03-18 12:19 | TREXTCAR_ITS ---
Diet 03/17/21 19:20 Diet: Cardiac - Heart Healthy Food consistency:: Regular Liquid Consistency:: Regular/Thin Diet: Consistent Carb - Calorie Controlled Food consistency:: Regular Liquid Consistency:: Regular/Thin How many daily calories?: 1800 calorie Routine Orders/Code Status Suppository Frequency: Daily PRN O2 Frequency: PRN Keep PO Greater than or Equal to (%): 92 Routine Lab Work: CBC and BMP Code Status: Full Code Therapies Weight Bearing: Non weight bearing Extremity Affected:: Right Lower Physical Therapy: Eval and Treat Occupational Therapy: Eval and Treat Problem/Diagnosis (1) Closed right ankle fracture: Status: Acute Allergies/Procedures Done in Hospital Allergies ciprofloxacin [From Cipro] Allergy (Verified 03/17/21 14:48) Unknown escitalopram oxalate [From Lexapro] Allergy (Verified 03/17/21 14:48) Unknown heparin Allergy (Verified 03/17/21 14:48) real anxious mupirocin [From Bactroban] Allergy (Verified 03/17/21 14:48) Unknown trazodone Allergy (Verified 03/17/21 14:48) knocked me out adhesive tape Adverse Reaction (Verified 03/17/21 14:48) Rash Procedures: None Type of Care/Length of Stay Estimated LOS: Convalescent Care Less Than 30 days Type of Care Needed: Skilled Rehab Potential: Fair Prognosis: Fair Additional Orders/Day of Discharge Day of Discharge: 03/18/21 Discharge Plan Admission Admit Date/Time: 03/17/21 18:05 Primary Reason for Your Visit: Right ankle fracture Attending Provider: Taty Campos Primary Care Provider: Sudheer Lion Discharge Orders/Prescriptions Prescriptions: New enoxaparin 40 mg/0.4 mL Syringe 40 mg subcut BID Qty: 0 RF: 0 cholecalciferol (vitamin D3) 25 mcg (1,000 unit) Tablet 25 mcg PO DAILY Qty: 0 RF: 0 sennosides-docusate sodium [Stool Softener-Stimulant Laxat] 8.6-50 mg Tablet 2 tab PO BID PRN PRN (Reason: Constipation) Qty: 0 RF: 0 No Action aspirin 81 mg tablet,delayed release (DR/EC) 81 mg PO DAILY RF: 0 clopidogrel 75 MG tablet 75 mg PO QHS RF: 0 atorvastatin 40 MG tablet 40 mg PO QHS RF: 0 duloxetine 60 MG capsule,delayed release(DR/EC) 60 mg PO DAILY RF: 0 amlodipine 10 MG tablet 10 mg PO DAILY RF: 0 folic acid 1 MG tablet 1 mg PO DAILY RF: 0 polyethylene glycol 3350 17 GM packet 17 g PO DAILY PRN (Reason: Constipation) RF: 0 oxycodone-acetaminophen 1 TABLET tablet 1 tab PO Q4H PRN PRN (Reason: Pain) RF: 0 tizanidine 4 MG capsule 4 mg PO TID PRN (Reason: Spasms) RF: 0 famotidine 20 mg tablet 20 mg PO DAILY RF: 0 diphenhydramine-acetaminophen [Tylenol PM Extra Strength] 25-500 mg Tablet 2 tab PO QHS PRN (Reason: Sleep) RF: 0 pregabalin 75 mg capsule 75 mg PO BID RF: 0 alprazolam 1 MG tablet 0.5 - 1 mg PO BID RF: 0 lisinopril 20 mg tablet 20 mg PO DAILY RF: 0 metoprolol tartrate 25 mg tablet 25 mg PO BID Qty: 180 RF: 0 Referrals / Follow Up: Osmin Mariee DO [STAFF PHYSICIAN] - In 1 Week (R ankle fracture) Sudheer Lion MD [Primary Care Provider] - Within 1 Month Disposition Disposition (needs filled in before D/C Order can be placed): Senior Care Facility
[2021-03-18 13:39] VITALS: BP 139/89; PULSE 60; RESP 18; TEMP 36.6; O2SAT 92
[2021-03-18] MEDS: tiZANidine HCl 2 MG Tablet 4 MG PO (15:33)
--- NOTE | 2021-03-18 16:55 | NURSING ---
report called to Adina on TCU
[2021-03-18 17:23] VITALS: BP 110/62; PULSE 63; RESP 18; TEMP 36.8; O2SAT 92
== END 2021-03-18 17:45 | disposition skilled nursing facility (03) ==
LOC: ED 17:21 → MS3 18:48
PROVIDERS: Admitting Provider Internal Medicine; Emergency Provider Emergency Medicine; PCP Family Medicine; Visit Provider Internal Medicine
DX: S82.54XA Nondisplaced fracture of medial malleolus of right tibia, initial encounter for closed fracture (principal); W19.XXXA Unspecified fall, initial encounter; Y93.89 Activity, other specified; Y92.9 Unspecified place or not applicable; Y99.9 Unspecified external cause status; I10 Essential (primary) hypertension; E66.01 Morbid (severe) obesity due to excess calories; I69.351 Hemiplegia and hemiparesis following cerebral infarction affecting right dominant side; E83.52 Hypercalcemia; I25.10 Atherosclerotic heart disease of native coronary artery without angina pectoris; I27.20 Pulmonary hypertension, unspecified; F41.9 Anxiety disorder, unspecified; F32.A Depression, unspecified; R32 Unspecified urinary incontinence; N32.81 Overactive bladder; K21.9 Gastro-esophageal reflux disease without esophagitis; E11.40 Type 2 diabetes mellitus with diabetic neuropathy, unspecified; G89.29 Other chronic pain; M19.90 Unspecified osteoarthritis, unspecified site; E78.5 Hyperlipidemia, unspecified; Z91.81 History of falling; Z79.899 Other long term (current) drug therapy; Z79.82 Long term (current) use of aspirin; Z79.02 Long term (current) use of antithrombotics/antiplatelets; Z79.84 Long term (current) use of oral hypoglycemic drugs; Z68.42 Body mass index [BMI] 45.0-49.9, adult
CPT/HCPCS: 36415; 73610; 80048; 82306; 82330; 83970; 85025; 87426; 96372; 96374; 96376; 99218; 99251; 99285; A4216; G0378; G0463; J2405

== ENCOUNTER 2021-03-18 18:05 | Inpatient (IN) | payer MEDICARE, OTHER, SELFPAY ==
[2021-03-18 18:13] VITALS: BP 110/80; PULSE 56; RESP 16; TEMP 36.4; O2SAT 94
--- NOTE | 2021-03-18 20:00 | HP.PCM_ITS ---
HPI - General General Date of Admission: 03/18/21 HPI Narrative 03/17/2021 MACKENZIE AKHTAR, is a 65 Female who presents to [facility] Emergency Department with lower extremity injury. Fall, right ankle pain, prior right ankle fracture, dislocation with surgery. Unable to extend right knee secondary to multiple knee surgeries. History of stroke with right hemiparesis. X-ray shows right ankle fracture. Non-weight bearing right lower extremity, placed in boot. 03/17/2021 Admit to Hospital. Pain control. PT/OT for debility. 03/18/2021 Admit to TCU with debility, here for rehabilitation, strengthening, prior to discharge home with . [facility] Medical History Anxiety Atherosclerotic heart disease of [place] coronary artery without angina pectoris CVA (cerebral vascular accident) Depression Essential hypertension Heart disease Hyperlipidemia Insomnia Morbid obesity Nocturnal hypoxemia Presence of stent in coronary artery (~02/27/12) Pulmonary hypertension Right sided cerebral infarction Suicide attempt by drug ingestion Home Medications clopidogrel 75 mg PO QHS 08/25/15 [History Last Taken 03/16/21] atorvastatin 40 mg PO QHS 01/27/16 [History Last Taken 03/16/21] duloxetine 60 mg PO DAILY 07/05/17 [History Last Taken 03/16/21] amlodipine 10 mg PO DAILY 10/31/18 [History Last Taken 03/16/21] folic acid 1 mg PO DAILY 12/13/18 [History Last Taken 03/16/21] polyethylene glycol 3350 17 g PO DAILY PRN 04/23/19 [History Last Taken 03/15/21] oxycodone-acetaminophen 1 tab PO Q4H PRN PRN 04/28/19 [History Last Taken 03/16/21] aspirin 81 mg tablet,delayed release 81 mg PO DAILY tab 06/16/20 [History Last Taken 03/16/21] tizanidine 4 mg PO TID PRN 07/12/20 [History Last Taken 03/15/21] metoprolol tartrate 25 mg tablet 25 mg PO BID #180 tab 09/20/20 [Rx Last Taken 03/16/21] alprazolam 0.5 - 1 mg PO BID 03/17/21 [History Last Taken 03/16/21] diphenhydramine-acetaminophen [Tylenol PM Extra Strength] 2 tab PO QHS PRN 03/17/21 [History Last Taken 03/16/21] famotidine 20 mg PO DAILY 03/17/21 [History Last Taken 03/16/21] lisinopril 20 mg PO DAILY 03/17/21 [History Last Taken 03/16/21] pregabalin 75 mg PO BID 03/17/21 [History Last Taken 03/16/21] cholecalciferol (vitamin D3) 25 mcg PO DAILY 03/18/21 [History Last Taken Unknown] enoxaparin 40 mg SUBCUT BID 03/18/21 [History Last Taken Unknown] sennosides-docusate sodium [Stool Softener-Stimulant Laxat] 2 tab PO BID PRN PRN #0 tab 03/18/21 [Rx Last Taken Unknown] Allergy/AdvReac Type Severity Reaction Status Date / Time ciprofloxacin [From Cipro] Allergy Unknown Verified 03/17/21 14:48 escitalopram oxalate Allergy Unknown Verified 03/17/21 14:48 [From Lexapro] heparin Allergy real Verified 03/17/21 14:48 anxious mupirocin [From Bactroban] Allergy Unknown Verified 03/17/21 14:48 trazodone Allergy knocked Verified 03/17/21 14:48 me out adhesive tape AdvReac Rash Verified 03/17/21 14:48 Family History Mother CAD (coronary artery disease) Hypertension Father CAD (coronary artery disease) Brother Myocardial infarction Hypertension Sister Hypertension Other CVA (cerebral vascular accident) Surgical History H/O arthroscopy of right knee History of ankle surgery History of cholecystectomy History of foot surgery History of hernia repair History of hysterectomy History of knee replacement History of tonsillectomy Presence of coronary angioplasty implant and graft (~02/27/12) Status post total right knee replacement (~12/25/18) Social History current occupational status: retired Smoking Status: Never smoker Electronic Cigarette Use: not used second hand exposure: No alcohol intake: former substance use type: does not use and other details: Uses CBD oil infrequently caffeine: Yes Type: carbonated beverages and tea ROS Constitutional Constitutional: Denies chills, fever(s) or weight gain ENT HEENT: Denies headache(s), nasal congestion or nasal discharge Cardiovascular Cardiovascular: Denies chest pain or palpitations Respiratory/Chest Respiratory/Chest: Denies cough, excessive phlegm production or shortness of breath with exertion Gastrointestinal Gastrointestinal: Denies abdominal pain, nausea or vomiting Genitourinary Genitourinary: Denies dysuria Musculoskeletal Musculoskeletal: Reports other Details: Right ankle pain. ; Denies joint pain or joint swelling Integumentary Integumentary: Denies rash or wounds Neurologic Neurologic: Denies focal weakness, numbness or tingling Psychiatric Psychiatric: Denies anxiety, auditory hallucinations, depression, homicidal ideation or suicidal ideation Physical Exam Const alert and oriented x3 General Appearance: cooperative HEENT normocephalic Eyes PERRL and EOMs intact bilaterally Neck supple, no JVD and no carotid bruits Resp normal respiratory effort, normal air movement and clear to auscultation bilaterally Cardio regular rate and regular rhythm GI normal to inspection, nondistended, normoactive bowel sounds, non-tender and non-distended Extremity normal capillary refill Extremity Narrative: Right lower extremity boot. General Extremity: Negative for edema Skin no rashes or lesions noted General Skin Exam: no breakdown Neuro Neuro Narrative: Right hemiparesis. Psych affect normal Appearance: appropriate Assessment & Plan Assessment/Plan (1) Debility: (2) Closed right ankle fracture: (3) Stroke: (4) Right hemiparesis: (5) Coronary artery disease: (6) Hyperlipidemia: (7) Depression: (8) Gastroesophageal reflux disease: (9) Hypertension: (10) Diabetes mellitus: (11) Iron deficiency anemia: (12) Anxiety: (13) Diabetic neuropathy: (14) Muscle spasm: PLAN: 65 year old female with below past medical history hospitalized for right ankle fracture, admitted to TCU with debility, here for rehabilitation, strengthening, prior to discharge home with . * Debility - PT/OT. * Pain - Tylenol 1000mg q8h, Tramadol 50mg q6h prn pain (1-5), Oxycodone 10mg q4h prn pain (6-10). * Bowel - Miralax 17gm daily, Senna/colace 2 tablets bid, Dulcolax 10mg daily prn. * Adult immunization - Administer prevnar 13, pneumovax 23, fluzone, covid19 vaccine as appropriate. * DVT prophylaxis - Lovenox 40mg sc daily. * Anxiety - Xanax 1mg bid, stable chronic senior living use, GDR not recommended. * Hypertension - Metoprolol 25mg bid, Lisinopril 20mg daily, Amlodipine 10mg daily. * Coronary artery disease - Metoprolol 25mg bid, Lisinopril 20mg daily, Plavix 75mg daily, Aspirin 81mg daily. * Stroke with right hemiparesis - Plavix 75mg daily, Aspirin 81mg daily. * Hyperlipidemia - Atorvastatin 40mg qhs. * Vitamin D deficiency - D3 25mcg daily. * Depression - Duloxetine 60mg daily, stable chronic senior living use, GDR not recommended. * GERD - Famotidine 20mg daily. * Folate deficiency - Folic acid 1mg daily. * Neuropathic pain - Lyrica 75mg bid. * Muscle spasm - Tizanidine 4mg tid prn.
[2021-03-18] MEDS: Atorvastatin Calcium 40 MG Tablet PO (20:04)
[2021-03-18] MEDS: Clopidogrel Bisulfate 75 MG Tablet PO (20:04)
[2021-03-18] MEDS: Acetaminophen 500 MG Tablet 1000 MG PO (20:05)
[2021-03-18] MEDS: oxyCODONE 5 MG Tablet PO (20:05)
[2021-03-19] MEDS: ALPRAZolam 0.5 MG Tablet 1 MG PO ×2 (04:49→17:22)
[2021-03-19] MEDS: Pregabalin 75 MG Capsule PO ×2 (04:50→17:19)
[2021-03-19] MEDS: amLODIPine 10 MG Tablet PO (04:50)
[2021-03-19] MEDS: Acetaminophen 500 MG Tablet 1000 MG PO ×3 (04:50→20:27)
[2021-03-19] MEDS: Senna/Docusate Sodium 1 Tablet 2 TABLET PO ×2 (04:50→17:20)
[2021-03-19] MEDS: Lisinopril 20 MG Tablet PO (04:50)
[2021-03-19 04:51] VITALS: BP 120/70; PULSE 60
[2021-03-19] MEDS: Metoprolol Tartrate 25 MG Tablet PO ×2 (04:51→17:20)
[2021-03-19] MEDS: Famotidine 20 MG Tablet PO (04:51)
[2021-03-19] MEDS: DULoxetine Hcl 60 MG Capsule PO (04:52)
[2021-03-19] MEDS: Enoxaparin 40 MG/0.4 ML Syringe SC (04:52)
[2021-03-19] MEDS: Polyethylene Glycol 3350 17 GM PACKET PO (04:52)
[2021-03-19] MEDS: Folic Acid 1 MG Tablet PO (08:51)
[2021-03-19] MEDS: Cholecalciferol (VIT D3) 25 MCG TABLET (1,000 UNITS) PO (08:51)
[2021-03-19] MEDS: Aspirin E.C. 81 MG Tablet PO (08:51)
[2021-03-19 09:54] VITALS: O2SAT 91
[2021-03-19] MEDS: Tuberculin,Purif.prot.deriv. 50 TU/ML Vial 0.1 ML ID (11:08)
[2021-03-19 11:09] VITALS: BMI 45.7
[2021-03-19 14:23] VITALS: BP 112/54; PULSE 59; RESP 14; TEMP 36.4; O2SAT 93
[2021-03-19 17:20] VITALS: BP 142/60; PULSE 60
[2021-03-19] MEDS: Atorvastatin Calcium 40 MG Tablet PO (20:26)
[2021-03-19] MEDS: Clopidogrel Bisulfate 75 MG Tablet PO (20:26)
[2021-03-19] MEDS: traMADol 50 MG Tablet PO (20:36)
[2021-03-19 21:00] VITALS: O2SAT 100
[2021-03-19 22:04] VITALS: BP 125/75; PULSE 60; RESP 16; TEMP 35.8; O2SAT 100
[2021-03-20] MEDS: DULoxetine Hcl 60 MG Capsule PO (05:05)
[2021-03-20 05:07] VITALS: BP 150/63; PULSE 60
[2021-03-20] MEDS: Enoxaparin 40 MG/0.4 ML Syringe SC (05:07)
[2021-03-20] MEDS: Metoprolol Tartrate 25 MG Tablet PO ×2 (05:07→17:18)
[2021-03-20] MEDS: amLODIPine 10 MG Tablet PO (05:09)
[2021-03-20] MEDS: Famotidine 20 MG Tablet PO (05:10)
[2021-03-20] MEDS: Lisinopril 20 MG Tablet PO (05:11)
[2021-03-20] MEDS: Acetaminophen 500 MG Tablet 1000 MG PO ×3 (05:11→22:00)
--- NOTE | 2021-03-20 05:15 | NURSING ---
Pt requests to go to the bathroom. Purewick in place but suction does not appear to be working properly. Two assist and NWB to RLE. Pt informs this nurse that transfer can be completed w/ one assist. This nurse has [facility] staff member assist w/ stand-pivot transfer from bed to wc, then w/c to toilet. Refuses to wear boot to RLE. CREMATOR and CALL PERSON take over care including transfer back from toilet to bed after am care.
[2021-03-20] MEDS: traMADol 50 MG Tablet PO (05:16)
[2021-03-20] MEDS: Pregabalin 75 MG Capsule PO ×2 (05:16→17:20)
[2021-03-20] MEDS: ALPRAZolam 0.5 MG Tablet 1 MG PO ×2 (05:16→17:20)
[2021-03-20] MEDS: Folic Acid 1 MG Tablet PO (08:49)
[2021-03-20] MEDS: Aspirin E.C. 81 MG Tablet PO (08:49)
[2021-03-20] MEDS: Cholecalciferol (VIT D3) 25 MCG TABLET (1,000 UNITS) PO (08:49)
[2021-03-20 09:09] LABS: Absolute Lymphocyte Count 1.99 X10^3/uL (0.83-4.51); Absolute Neutrophil Count 4.6 X10^3/uL (2.0-7.7); Basophil# 0.06 X10^3/uL; Basophil% 0.8 % (0-1); Eosinophil# 0.31 X10^3/uL; Eosinophils% 4.1 % (0-5); Hemoglobin 10.5 g/dL (12.0-15.0); Lymphocyte # 1.99 X10^3/ul (0.83-4.51); Lymphocyte % 26.1 % (19-41); Mean Corp Hgb Conc 31.8 g/dL (32-36); Mean Corpuscular Hgb 26.6 pg (27.0-32.0); Mean Corpuscular Volume 83.5 fL (81-99); Mean Platelet Vol. 9.6 fl (6.2-12.0); Monocyte# 0.61 X10^3/uL; NRBC Flagged by Analyzer 0 % (0-5); Neutrophil # 4.63 X10^3/uL (2.7-7.7); Neutrophil % 60.6 % (47-70); Platelet Count 393 K/mm3 (150-450); RBC Distribution Width SD 45.8 fl (35.1-43.9); Red Blood Count 3.95 M/mm3 (4.2-5.4); White Blood Count 7.6 K/mm3 (4.4-11.0)
[2021-03-20 09:41] LABS: Anion Gap 6 (5-15); BUN 40 mg/dL (7-18); BUN/Creat Ratio 33.6 RATIO (10-20); Calcium,Total 9.6 mg/dL (8.5-10.1); Chloride 105 mmol/L (98-107); Creatinine, Serum 1.19 mg/dL (0.55-1.02); EST Glomerular Filtration Rate 48 mL/min (>60); Est Glom Filt Rate - Afr Amer 58 mL/min (>60); Estimated Creatinine Clearance 36.28 ml/min; Glucose 116 mg/dL (74-106); Potassium 4.8 mmol/L (3.5-5.1); Sodium Level 137 mmol/L (136-145)
--- NOTE | 2021-03-20 11:15 | NURSING ---
Saline lock d/c today, a little red around insertion site, no edema, denies pain, catheter tip intact, pt tolerated well
[2021-03-20 13:43] VITALS: BP 128/62; PULSE 59; RESP 18; TEMP 36.1; O2SAT 95
[2021-03-20 13:45] VITALS: O2SAT 95
[2021-03-20] MEDS: Senna/Docusate Sodium 1 Tablet 2 TABLET PO (17:17)
[2021-03-20 17:18] VITALS: PULSE 59
--- NOTE | 2021-03-20 18:20 | NURSING ---
was concerned asking this nurse when pt is able to go home and asked if anyone planned on doing surgery on pts ankle. This nurse explained to that podiatry is to be consulted for ankle fracture but office is closed on weekends so staff can call tomorrow to update Dr. Lopez's office on need for consult and that podiatry will then decide if surgery is appropriate. This nurse explained that the social services director usually sets up discharge and that the social services director will not be in until tomorrow as well. Pt's instructed to check with staff tomorrow and see when Consult will be done and he will have a better idea on possible timeline, pt and thanked
[2021-03-20] MEDS: Atorvastatin Calcium 40 MG Tablet PO (22:00)
[2021-03-20] MEDS: Clopidogrel Bisulfate 75 MG Tablet PO (22:00)
[2021-03-20] MEDS: oxyCODONE 5 MG Tablet 10 MG PO (22:04)
[2021-03-21] MEDS: DULoxetine Hcl 60 MG Capsule PO (05:40)
[2021-03-21] MEDS: Enoxaparin 40 MG/0.4 ML Syringe SC (05:42)
[2021-03-21] MEDS: Pregabalin 75 MG Capsule PO ×2 (05:42→17:43)
[2021-03-21 05:43] VITALS: BP 150/52; PULSE 60
[2021-03-21] MEDS: Metoprolol Tartrate 25 MG Tablet PO ×2 (05:43→17:39)
[2021-03-21] MEDS: amLODIPine 10 MG Tablet PO (05:43)
[2021-03-21] MEDS: Famotidine 20 MG Tablet PO (05:43)
[2021-03-21] MEDS: Acetaminophen 500 MG Tablet 1000 MG PO ×3 (05:44→20:35)
[2021-03-21] MEDS: Lisinopril 20 MG Tablet PO (05:45)
[2021-03-21] MEDS: ALPRAZolam 0.5 MG Tablet 1 MG PO ×2 (05:45→20:35)
[2021-03-21] MEDS: tiZANidine HCl 2 MG Tablet 4 MG PO (07:02)
[2021-03-21 07:16] VITALS: O2SAT 94
--- NOTE | 2021-03-21 08:10 | NURSING ---
THIS NURSE CALLED OFFICE TO GET A CONSULT FOR PT PER HUSBANDS REQUEST. OFFICE STATED THEY WOULD LET ONE OF THE DOCTORS KNOW.
[2021-03-21] MEDS: Pantoprazole Sodium 40 MG Tablet PO (09:02)
[2021-03-21] MEDS: Aspirin E.C. 81 MG Tablet PO (09:02)
[2021-03-21] MEDS: Folic Acid 1 MG Tablet PO (09:02)
[2021-03-21] MEDS: Cholecalciferol (VIT D3) 25 MCG TABLET (1,000 UNITS) PO (09:03)
[2021-03-21] MEDS: oxyCODONE 5 MG Tablet 10 MG PO (09:05)
--- NOTE | 2021-03-21 12:13 | CASEMGMT ---
Addendum entered by Monica Curtis 03/21/21 16:03: Attempted to visit pt, but asleep and not arousable. Will continue to attempt. Original Note: Social Work Completed chart review. Pt has hx of suicide attempt in 2013 r/t drug overdose of medications prescribed. contacted this worker prior to SW completing admit assessment with pt. inquiring about DC plan and timeframe as pt is already requesting to go home. Spoke with for approx. 30 minutes gathering information, answering questions, providing resources available. states pt has 4 steps to enter home to get to first floor set up. He is actively building a ramp and expects it to be done by tomorrow. He explains pt is typically non-complaint with any medical recommendations, is very stubborn; he follows what she wants. Dr. Lopez is consulted as he states he needs to know the treatment plan for the pt. Encouraged for pt to remain in TCU working with therapy for strengthening as pt is currently x2 assist. states, good luck with that. She is basically a x2 assist at home. Pt lives with her dtr who does not work, and [employer], but dtr drives [employer] to and from work. They have a grandson, that brings some light into their world. However, he stated, there's not a lot of laughing and smiling in this house. explained he manages her medications because she is always asking for pain meds and he can only give her what the prescribes, but she is always in pain. Pt is active with Dr. Griffith, but he doesn't prescribe more pain meds because she is on Xanax, per . Inquired if there was a reason for managing her meds. He said she is just confused sometimes. Inquired about any issues with abusing Xanax before. He denied. Inquired about past note, per chart review, of overdose of Xanax. stated, She never admitted to me that she was trying to commit suicide. She was just tired and wanted to sleep. She had access to her meds then, but now I keep them locked up in the safe that I only know the code to. There is a difference between misery and wanting to commit suicide. Life sucks. It's not her fault, but I'm now forced to live that life too and take care of her. She lays in bed and complains she wants to go on a cruise, but won't listen to her doctors to get better. It's just who she is, and she isn't going to change. Validated feelings and drastic change in lifestyle for him and pt. Inquired about counseling and medications. stated she went to a psychiatrist in 2005 after her stroke, but refused to keep going, and she is on antidepressants, but no amount of medications are going to make her feel happy again. Provided emotional and verbal support. Offered for to go to counseling, explained stroke support group, and hiring nonskilled HHC to assist to relieve caregiver burden. denied and stated, No, don't try to pscyh talk me, I know what you're trying to do. I just assumed there isn't any help for me, and I'm fine with that. Offered to leave resources for assistance available to him in pt's room - he agreed. Redirected back to DC planning. to notify SW when ramp is built. SW to speak with pt to get wishes. SW to continue to follow for discharge planning. agreed. Monica Curtis, SHIRIN FRAUSTO
--- NOTE | 2021-03-21 13:54 | ST ---
Spoke with pt regarding difficulty swallowing after speaking with OT who reports this morning pt was lethargic and reported increased difficulty with swallowing liquids. Pt now denies difficulty with liquids and denies ST needs. Pt encouraged to notify TCU staff with any changes in swallowing function.
--- NOTE | 2021-03-21 14:17 | PHA.CONS_ITS ---
Progress Note - Pharmacy Subjective: TCU Admission Objective: Allergies ciprofloxacin [From Cipro] Allergy (Verified 03/17/21 14:48) Unknown escitalopram oxalate [From Lexapro] Allergy (Verified 03/17/21 14:48) Unknown heparin Allergy (Verified 03/17/21 14:48) real anxious mupirocin [From Bactroban] Allergy (Verified 03/17/21 14:48) Unknown trazodone Allergy (Verified 03/17/21 14:48) knocked me out adhesive tape Adverse Reaction (Verified 03/17/21 14:48) Rash Current Medications Generic Name Dose Route Start Last Admin Trade Name Freq PRN Reason Stop Dose Admin Acetaminophen 1,000 mg 03/18/21 22:00 03/21/21 12:59 Acetaminophen 500 Mg Tablet PO 1,000 mg Q8H TUAN Administration Alprazolam 1 mg 03/21/21 06:00 03/21/21 05:45 Alprazolam 0.5 Mg Tablet PO 1 mg BID@0600,2200 TUAN Administration Amlodipine Besylate 10 mg 03/19/21 06:00 03/21/21 05:43 Amlodipine 10 Mg Tablet PO 10 mg DAILY TUAN Administration Aspirin 81 mg 03/19/21 08:00 03/21/21 09:02 Aspirin E.C. 81 Mg Tablet PO 81 mg DAILYCM TUAN Administration Atorvastatin Calcium 40 mg 03/18/21 22:00 03/20/21 22:00 Atorvastatin Calcium 40 Mg Tablet PO 40 mg QHS TUAN Administration Bisacodyl 10 mg 03/18/21 20:16 Bisacodyl 5 Mg Tablet PO DAILY PRN Constipation Cholecalciferol 25 mcg 03/19/21 08:00 03/21/21 09:03 Cholecalciferol (Vit D3) 25 Mcg Tablet (1,000 Units) PO 25 mcg DAILYCM TUAN Administration Clopidogrel Bisulfate 75 mg 03/18/21 22:00 03/20/21 22:00 Clopidogrel Bisulfate 75 Mg Tablet PO 75 mg QHS TUAN Administration Duloxetine HCl 60 mg 03/19/21 06:00 03/21/21 05:40 Duloxetine Hcl 60 Mg Capsule PO 60 mg DAILY TUAN Administration Enoxaparin Sodium 40 mg 03/19/21 06:00 03/21/21 05:42 Enoxaparin 40 Mg/0.4 Ml Syringe SC 40 mg DAILY@0600 TUAN Administration Folic Acid 1 mg 12/11/21 08:00 03/21/21 09:02 Folic Acid 1 Mg Tablet PO 1 mg DAILYCM TUAN Administration Lisinopril 20 mg 03/19/21 06:00 03/21/21 05:45 Lisinopril 20 Mg Tablet PO 20 mg DAILY TUAN Administration Metoprolol Tartrate 25 mg 03/19/21 06:00 03/21/21 05:43 Metoprolol Tartrate 25 Mg Tablet PO 25 mg BID [facility] Administration Oxycodone HCl 10 mg 03/18/21 20:18 03/21/21 09:05 Oxycodone 5 Mg Tablet PO 10 mg Q4H PRN PRN Administration Pain Score 6-10 Pantoprazole Sodium 40 mg 03/21/21 08:00 03/21/21 09:02 Pantoprazole Sodium 40 Mg Tablet PO 40 mg DAILY [facility] Administration Polyethylene Glycol 17 gm 03/19/21 06:00 03/21/21 05:43 Polyethylene Glycol 3350 17 Gm Packet PO Not Given DAILY [facility] Pregabalin 75 mg 03/19/21 06:00 03/21/21 05:42 Pregabalin 75 Mg Capsule PO 75 mg BID [facility] Administration Senna/Docusate Sodium 2 tablet 03/19/21 06:00 03/21/21 05:43 Senna/Docusate Sodium 1 Tablet PO Not Given BID [facility] Tizanidine HCl 4 mg 03/18/21 18:36 03/21/21 07:02 Tizanidine Hcl 2 Mg Tablet PO 4 mg TID PRN Administration SPASMS Tramadol HCl 50 mg 03/18/21 20:16 03/20/21 05:16 Tramadol 50 Mg Tablet PO 50 mg Q6H PRN PRN Administration Pain Score 1-5 Tuberculin PPD 0.1 ml 03/26/21 10:00 Tuberculin,Purif.Prot.Deriv. 50 Tu/Ml Vial ID 03/26/21 10:01 X1 ONE Problem List (Last Reviewed 03/18/21 @ 20:16 by Tana Armando) Muscle spasm (Acute) Diabetic neuropathy (Acute) Anxiety (Acute) Iron deficiency anemia (Acute) Diabetes mellitus (Acute) Hypertension (Chronic) Gastroesophageal reflux disease (Acute) Depression (Acute) Hyperlipidemia (Acute) Coronary artery disease (Acute) Right hemiparesis (Acute) Stroke (Acute) Debility (Acute) Closed right ankle fracture (Acute) Vital Signs Temp Pulse Resp BP Pulse Ox 97.0 F L 60 18 150/52 H 94 03/20/21 13:43 03/21/21 05:43 03/20/21 13:43 03/21/21 05:43 03/21/21 07:16 Oxygen Flow Rate (L/min) 2 Oxygen Delivery Method Room Air Weight: 113.443 kg Body Mass Index (BMI) 45.7 Sodium 137 mmol/L (136-145) 03/20/21 08:50 Potassium 4.8 mmol/L (3.5-5.1) 03/20/21 08:50 Chloride 105 mmol/L (98-107) 03/20/21 08:50 Carbon Dioxide 26.0 mmol/L (21.0-32.0) 03/20/21 08:50 Anion Gap 6 (5-15) 03/20/21 08:50 BUN 40 mg/dL (7-18) H 03/20/21 08:50 Creatinine 1.19 mg/dL (0.55-1.02) H 03/20/21 08:50 Est GFR (MDRD) Af Amer 58 mL/min (>60) L 03/20/21 08:50 Est GFR (MDRD) Non-Af 48 mL/min (>60) L 03/20/21 08:50 BUN/Creatinine Ratio 33.6 RATIO (10-20) H 03/20/21 08:50 Glucose 116 mg/dL (74-106) H 03/20/21 08:50 Assessment/Plan: 1. Pain: acetaminophen 1000mg PO Q8, tramadol 50mg PO Q6H PRN pain 1-5/10 and oxycodone 10mg PO Q4H PRN pain 6-10/10. Please continue to monitor for increased pain, PRN usage, constipation, renal function and respiratory depression. 2. DVT prophylaxis: enoxaparin 40mg SC daily. Please continue to monitor for S/S of bleeding, hemoglobin (last 10.5g/dL), platelets (last 393,000), and renal function. 3. Hypertension/CAD/stroke with right hemiparesis: metoprolol tartrate 25mg PO BID, lisinopril 20mg PO daily, amlodipine 10mg PO daily, clopidogrel 75mg PO QHS and aspirin 81mg PO DAILYCM. Please continue to monitor HR (last 60), BP (last 150/52), potassium (last 4.8mmol/L), renal function, cough, swelling, S/S of bleeding and hemoglobin. 4. Hyperlipidemia: atorvastatin 40mg PO QHS. Please continue to monitor lipid panel (last 06/16/20) and muscle pain. 5. Neuropathic pain: pregabalin 75mg PO BID. Please continue to monitor for pain and renal function. 6. Muscle spasm: tizanidine 4mg PO TID PRN spasms. Please continue to monitor for spasms, PRN usage and drowsiness. 7. GERD: pantoprazole 40mg PO daily. Please continue to monitor for S/S of GERD and diarrhea. 8. Vitamin D deficiency and folate deficiency: cholecalciferol 25mcg PO DAILYCM and folic acid 1mg PO DAILYCM. Please continue to monitor vitamin D levels (last 03/17/21). Psychotropic Medications: 1. Anxiety: alprazolam 1mg PO BID. Please see physician note regarding GDR. 2. Depression: duloxetine 60mg PO daily. Please see physician note regarding GDR. Unnecessary Medications: None *Bowel Regimen: Miralax 17gm PO daily, senna/docusate 2T PO BID and bisacodyl 10mg PO daily PRN constipation. Patient has refused 2/3 doses of Miralax, please consider changing to PRN constipation. Thanks. Please continue to monitor for constipation. Date of Note:: 03/21/21
[2021-03-21 16:00] VITALS: BP 101/45; PULSE 52; RESP 14; TEMP 35.9; O2SAT 92
[2021-03-21 17:39] VITALS: BP 145/67; PULSE 65
[2021-03-21] MEDS: Senna/Docusate Sodium 1 Tablet 2 TABLET PO (17:40)
[2021-03-21 17:44] VITALS: BP 145/67; PULSE 65
--- NOTE | 2021-03-21 17:52 | PCM.CONS.GEN ---
Assessment & Plan Assessment/Plan (1) Diabetic neuropathy: (2) Walking difficulty due to ankle and foot: (3) Fracture of medial malleolus, right, closed: (4) Right foot pain: PLAN: I reviewed and discussed her case. Her x-rays demonstrated nondisplaced medial malleolus fracture and overall the ankle mortise is well aligned. There is evidence of prior open reduction internal fixation of fibula fracture which does not appear to be reinjured. We discussed the anticipated healing time of fractures and I recommend nonweightbearing status at this time with CAM Walker immobilization. To use assistive device. To work with physical and occupational therapy. Discharge planning is pending the therapy evaluations and social work management. I recommend vitamin D supplementation to optimize healing. Her level is in the low 30s which is the low end of normal. I do not recommend surgical intervention at this time and she is amenable to proceed forward with conservative care. I would like to see her in the outpatient setting in 1 month to obtain new x-rays and to update her potential weightbearing status. It is noted she has pain palpation to her midfoot and I will order a foot x-ray to confirm if any additional injuries are located to this site. Thank you for the consultation. Do not hesitate to call me if any questions. Marisela Liao DPM, [facility] [phone] HPI Consult Data Date of Consult: 03/21/21 HPI Narrative Reason for Consultation: right ankle fracture HPI Narrative: MACKENZIE AKHTAR, is a 65 F who was seen bedside earlier this evening in the transitional care unit for a right medial malleolus ankle fracture. She sustained this injury on 03-17-21 while she was holding onto a railing which became dismounted from the wall and she sustained a fall. She denies other injuries or loss of consciousness however reports ongoing right leg and knee pain. Her ankle pain is moderate and controlled for this is immobilized in a cam walker boot. It is noted she had prior open reduction internal fixation of a fibular fracture with Dr. Sanchez about 2 years ago. She denies routine claudication, wounds. She does have diabetes. She is maintained nonweightbearing status. Her pain is rated as a 6 out of 10. Her spouse is located bedside. [facility] Medical History Anxiety Atherosclerotic heart disease of [place] coronary artery without angina pectoris CVA (cerebral vascular accident) Depression Essential hypertension Heart disease Hyperlipidemia Insomnia Morbid obesity Nocturnal hypoxemia Presence of stent in coronary artery (~02/27/12) Pulmonary hypertension Right sided cerebral infarction Suicide attempt by drug ingestion Home Medications clopidogrel 75 mg PO QHS 08/25/15 [History Last Taken 03/16/21] atorvastatin 40 mg PO QHS 01/27/16 [History Last Taken 03/16/21] duloxetine 60 mg PO DAILY 07/05/17 [History Last Taken 03/16/21] amlodipine 10 mg PO DAILY 10/31/18 [History Last Taken 03/16/21] folic acid 1 mg PO DAILY 12/13/18 [History Last Taken 03/16/21] polyethylene glycol 3350 17 g PO DAILY PRN 04/23/19 [History Last Taken 03/15/21] oxycodone-acetaminophen 1 tab PO Q4H PRN PRN 04/28/19 [History Last Taken 03/16/21] aspirin 81 mg tablet,delayed release 81 mg PO DAILY tab 06/16/20 [History Last Taken 03/16/21] tizanidine 4 mg PO TID PRN 07/12/20 [History Last Taken 03/15/21] metoprolol tartrate 25 mg tablet 25 mg PO BID #180 tab 09/20/20 [Rx Last Taken 03/16/21] alprazolam 0.5 - 1 mg PO BID 03/17/21 [History Last Taken 03/16/21] diphenhydramine-acetaminophen [Tylenol PM Extra Strength] 2 tab PO QHS PRN 03/17/21 [History Last Taken 03/16/21] famotidine 20 mg PO DAILY 03/17/21 [History Last Taken 03/16/21] lisinopril 20 mg PO DAILY 03/17/21 [History Last Taken 03/16/21] pregabalin 75 mg PO BID 03/17/21 [History Last Taken 03/16/21] cholecalciferol (vitamin D3) 25 mcg PO DAILY 03/18/21 [History Last Taken Unknown] enoxaparin 40 mg SUBCUT BID 03/18/21 [History Last Taken Unknown] sennosides-docusate sodium [Stool Softener-Stimulant Laxat] 2 tab PO BID PRN PRN #0 tab 03/18/21 [Rx Last Taken Unknown] Allergy/AdvReac Type Severity Reaction Status Date / Time ciprofloxacin [From Cipro] Allergy Unknown Verified 03/17/21 14:48 escitalopram oxalate Allergy Unknown Verified 03/17/21 14:48 [From Lexapro] heparin Allergy real Verified 03/17/21 14:48 anxious mupirocin [From Bactroban] Allergy Unknown Verified 03/17/21 14:48 trazodone Allergy knocked Verified 03/17/21 14:48 me out adhesive tape AdvReac Rash Verified 03/17/21 14:48 Family History Mother CAD (coronary artery disease) Hypertension Father CAD (coronary artery disease) Brother Myocardial infarction Hypertension Sister Hypertension Other CVA (cerebral vascular accident) Surgical History H/O arthroscopy of right knee History of ankle surgery History of cholecystectomy History of foot surgery History of hernia repair History of hysterectomy History of knee replacement History of tonsillectomy Presence of coronary angioplasty implant and graft (~02/27/12) Status post total right knee replacement (~12/25/18) Social History current occupational status: retired Smoking Status: Never smoker Electronic Cigarette Use: not used second hand exposure: No alcohol intake: former substance use type: does not use and other details: Uses CBD oil infrequently caffeine: Yes Type: carbonated beverages and tea Physical Exam Const alert and oriented x3 General Appearance: cooperative HEENT normocephalic Extremity Extremity Narrative: No calf tenderness Diminished pulses Muscle wasting noted Pain to palpate medial malleolus and not to lateral malleolus or anterior ankle joint Pain diffuse to palpate midfoot General Extremity: edema; Negative for cyanosis Skin Skin Narrative: no purulence, no streaking, no odor, no infection. Skin is atrophic and hairless. There is no fracture blisters or wounds. No ecchymosis. General Skin Exam: Negative for erythema Neuro Neuro Narrative: Epicritic sensation is intact via light touch Psych cooperative and affect normal Lab / Micro Data Result Diagrams: 03/20/21 08:50 03/20/21 08:50
--- NOTE | 2021-03-21 18:40 | NURSING ---
IN TO SEE PT.
[2021-03-21 20:23] VITALS: PULSE 57; RESP 18; O2SAT 94
[2021-03-21] MEDS: Clopidogrel Bisulfate 75 MG Tablet PO (20:35)
[2021-03-21] MEDS: traMADol 50 MG Tablet PO (20:35)
[2021-03-21] MEDS: Atorvastatin Calcium 40 MG Tablet PO (20:35)
--- NOTE | 2021-03-21 22:59 | NURSING ---
Spoke with patient and regarding code status. Both agreed for patient to be Full Code.
[2021-03-22] VITALS (8 sets, daily range): BP systolic 115–138; BP diastolic 55–72; PULSE 48–57; RESP 18; TEMP 36.3; O2SAT 92–95
--- NOTE | 2021-03-22 00:44 | RAD_ITS ---
STUDY: X-RAY - RIGHT FOOT CLINICAL: Female, 65 years old. Right mid foot pain status post fall TECHNIQUE: 3 view(s) of the foot. COMPARISON: None. FINDINGS: Normal talus, calcaneus, and tarsal bones. Internal fixation instrumentation overlying the distal fibula. Mild degenerative change of the tibiotalar joint. Subtalar and intertarsal joints are unremarkable. There are nondisplaced fractures involving the bases of the second, third, and fourth metatarsals. There is cortical irregularity at the lateral base of the first metatarsal. There is no displacement at the Lisfranc joint. Mild degenerative change of the first metatarsophalangeal joint. Normal tibial and fibular sesamoid bones. Normal interphalangeal joint of the great toe. Normal phalanges of the great toe. Normal second through fifth metatarsophalangeal joints. Normal interphalangeal joints and phalanges of the lesser toes. The soft tissue structures are unremarkable. RAD/Foot min 3 Views IMPRESSION: Nondisplaced fractures across the Lisfranc joint, involving the the lateral base of the first metatarsal and through the bases of the second through fourth metatarsals. Electronically Signed: Dedrick Ledesma MD at 1:16 EST Tel , Service support ,
[2021-03-22] MEDS: oxyCODONE 5 MG Tablet 10 MG PO ×3 (01:05→22:39)
[2021-03-22] MEDS: tiZANidine HCl 2 MG Tablet 4 MG PO ×2 (01:44→22:35)
[2021-03-22] MEDS: Senna/Docusate Sodium 1 Tablet 2 TABLET PO (04:38)
[2021-03-22] MEDS: ALPRAZolam 0.5 MG Tablet 1 MG PO ×2 (04:38→22:36)
[2021-03-22] MEDS: Lisinopril 20 MG Tablet PO (04:38)
[2021-03-22] MEDS: amLODIPine 10 MG Tablet PO (04:38)
[2021-03-22] MEDS: Acetaminophen 500 MG Tablet 1000 MG PO ×3 (04:38→22:36)
[2021-03-22] MEDS: Pantoprazole Sodium 40 MG Tablet PO (04:38)
[2021-03-22] MEDS: DULoxetine Hcl 60 MG Capsule PO (04:38)
[2021-03-22] MEDS: Pregabalin 75 MG Capsule PO ×2 (04:38→17:34)
[2021-03-22] MEDS: Enoxaparin 40 MG/0.4 ML Syringe SC (04:40)
[2021-03-22 06:35] LABS: Anion Gap 4 (5-15); BUN 30 mg/dL (7-18); BUN/Creat Ratio 28.3 RATIO (10-20); Calcium,Total 9.6 mg/dL (8.5-10.1); Chloride 105 mmol/L (98-107); Creatinine, Serum 1.06 mg/dL (0.55-1.02); EST Glomerular Filtration Rate 55 mL/min (>60); Est Glom Filt Rate - Afr Amer 66 mL/min (>60); Estimated Creatinine Clearance 40.73 ml/min; Glucose 121 mg/dL (74-106); Potassium 4.8 mmol/L (3.5-5.1); Sodium Level 136 mmol/L (136-145)
--- NOTE | 2021-03-22 06:52 | NURSING ---
Held patient's Lopressor d/t low heart rate of 51 BPM and [address] Message left for [address] Almaraz.
[2021-03-22] MEDS: Aspirin E.C. 81 MG Tablet PO (07:39)
[2021-03-22] MEDS: Cholecalciferol (VIT D3) 25 MCG TABLET (1,000 UNITS) PO (07:39)
[2021-03-22] MEDS: Folic Acid 1 MG Tablet PO (07:39)
[2021-03-22] MEDS: Metoprolol Tartrate 25 MG Tablet PO ×2 (08:20→17:35)
--- NOTE | 2021-03-22 11:10 | CASEMGMT ---
Social Work Met with patient for initial assessment. Discussed code status. Pt confirmed full code. MOLST form completed, communication to , placed in chart. Explained Medicare insurance. Encouraged to contact secondary insurance to ensure copay coverage. requesting Palliative consult. Order entered and referral sent to [facility] via email. Pt lives at home with , dtr, QUE and 7 month old grandson. Pt is wanting to go home. Discussed goals for stay in TCU. Pt not understanding she can strength other parts of body while she is NWB. Pt reports she has a bike at home to use and has [employer] membership at [facility] and she would like to continue. Explained how therapy in TCU could benefit pt and to remain at least until end of the week. Pt agreeable to DC 03/26 and get therapy this week. Offered to get [facility] therapy at home to assist with exercises and then can assist with transitioning to [facility]. Pt reports issues with transportation. SW can provide resources. Opened conversation for pt to explain hospitalization r/t pills in 2013. Provided supportive and active listening and silence technique to allow pt to express feelings and discuss any topics she wishes. Pt did want to ensure this conversation will remain confidential and not be told to . SW confirmed confidentiality. Pt explained one daughter had issues with drugs, asking for money from parents. Dtr always stated she would repay her parents the money. Pt gave dtr a lot of money and dtr never paid her back. She became ashamed of giving all of pt and 's money to dtr. She explained the stress and shame of it all made her want to just sleep and - pt admits it was a suicide attempt; however, her biggest shame is that her 8 year old grandson found her on the couch, unresponsive and called 911. Pt states she no longer has intent to harm self, is not continuing with counseling. She expressed guilt and has too much to live for. SW encouraged with current feelings. In separate timeframe, pt explained r/t her dtr's drug issues, she had all 6 of her children taken from her by CPS and one grandson came to live with pt and . However, pt explains r/t to tension in the home, it was decided for grandson to no longer live with pt and went to live with another family member. She reports that is her biggest mistake and still feels guilty as to how that grandson was raised. Discussed further about home environment, relationship between pt and , and changes that occurred since 2006 from first stroke and the medical issues taht followed to present. Pt expressed a lot of feelings. Provided emotional and verbal support. Encourage pt to continue with counseling at [facility] to help process these feelings that continue to affect her from many years of hardships. Pt will consider. SW to provide counseling resources. SW offered continued support throughout stay. Explained Meenakshi Bermudez and meeting is held today, if interested in attending. Pt agreeable. Pt expressed appreciation for SW conversation and time. SW to continue to follow. Total time spent: one hour SHIRIN May
--- NOTE | 2021-03-22 17:56 | NURSING ---
THIS NURSE GAVE THE MODERNA BOOSTER IN PT RIGHT DELT. PT TOLERATED WELL.
--- NOTE | 2021-03-22 19:33 | NURSING ---
Per Dr. Liao patient is to wear CAM boot at all times d/t multiple fractures.
[2021-03-22] MEDS: Clopidogrel Bisulfate 75 MG Tablet PO (22:35)
--- NOTE | 2021-03-22 22:35 | NURSING ---
This Nurse entered patient's room and found CAM boot off of patient and sitting on laundry cart. Asked patient who took the boot off and patient stated, We did. My took it off because I asked him too. Explained to patient she needed to leave the boot on at all times per Dr. Liao. If she cannot tolerate the boot, Dr. Liao said she would come in and make a splint for her. Patient rolled her eyes and said, I don't have to wear it, my ankle and top of my foot hurt from it. Educated patient that she has several fractured bones in her ankle and the top of her foot and that the pain is probably from that. The boot should be left on for support. Patient stated, You're not a doctor! This Nurse agreed with patient and explained she had the right to refuse care and the right to refuse to wear the CAM boot. Patient then whispered, we just won't tell anyone and I will put it on it the morning. Advised patient that she could injure herself more possibly and that I had to chart that patient was being non-compliant with care. After HS medications were administered patient then said, ok put my boot back on. Boot was placed back on RLE.
[2021-03-22] MEDS: Atorvastatin Calcium 40 MG Tablet PO (22:36)
[2021-03-23 04:32] VITALS: PULSE 57
[2021-03-23] MEDS: amLODIPine 10 MG Tablet PO (04:32)
[2021-03-23] MEDS: Pantoprazole Sodium 40 MG Tablet PO (04:32)
[2021-03-23] MEDS: Metoprolol Tartrate 25 MG Tablet PO ×2 (04:32→17:47)
[2021-03-23] MEDS: DULoxetine Hcl 60 MG Capsule PO (04:32)
[2021-03-23] MEDS: Senna/Docusate Sodium 1 Tablet 2 TABLET PO ×2 (04:32→17:46)
[2021-03-23] MEDS: Lisinopril 20 MG Tablet PO (04:32)
[2021-03-23] MEDS: Acetaminophen 500 MG Tablet 1000 MG PO ×3 (04:32→21:04)
[2021-03-23] MEDS: ALPRAZolam 0.5 MG Tablet 1 MG PO ×2 (04:36→21:04)
[2021-03-23] MEDS: Enoxaparin 40 MG/0.4 ML Syringe SC (04:36)
[2021-03-23] MEDS: Pregabalin 75 MG Capsule PO ×2 (04:36→17:46)
[2021-03-23 05:28] VITALS: BP 128/61; PULSE 57; RESP 16; TEMP 36.7; O2SAT 97
[2021-03-23] MEDS: Cholecalciferol (VIT D3) 25 MCG TABLET (1,000 UNITS) PO (08:00)
[2021-03-23] MEDS: Folic Acid 1 MG Tablet PO (08:00)
[2021-03-23] MEDS: Aspirin E.C. 81 MG Tablet PO (08:00)
--- NOTE | 2021-03-23 10:41 | CASEMGMT ---
Addendum entered by Monica Curtis 03/23/21 11:47: [facility] unable to service pt area. Pt agreeable to referral to [facility]. Referral made. Original Note: Social Work IDT met with patient and for care plan meeting. Discussed patient's progress in PT/OT and nursing. Explained Medicare benefit. Encouraged to contact secondary insurance to ensure copay coverage. Pt remains agreeable to DC 03/26. Another appt with [facility] to be fitted for brace to left knee at DC. has ramp built. Provided resources for transportation and counseling. Encouraged pt to pick counseling center and SW will make appt for pt prior to DC. Pt remains agreeable to [facility]. Provided [facility] list with quality and resource data. Pt and agreeable to [facility]. Referral made for PT/OT/SN/SW. Pt requesting w/c. Referral for w/c. Pt has walker and knee scooter. to transport. Plan: DC home with family 03/25, [facility] PT/OT/SN/SW, w/c Monica Curtis, [employer]
[2021-03-23] MEDS: tiZANidine HCl 2 MG Tablet 4 MG PO ×2 (12:27→21:04)
[2021-03-23] MEDS: oxyCODONE 5 MG Tablet 10 MG PO ×2 (12:27→18:38)
--- NOTE | 2021-03-23 16:13 | PCM.PROGNOTE ---
Subjective Subjective This patient was seen for follow-up of right medial malleolus ankle fracture and also metatarsal fractures 1, 2, 3, 4/Lisfranc injury of the right lower extremity. She is not tolerating her cam walker boot and would like to try a splint. She denies new additional injuries and has maintained a nonweightbearing status. Objective Data Objective Data Vital Signs: Vital Signs Temp Pulse Resp BP Pulse Ox 98.1 F 57 L 16 128/61 H 97 03/23/21 05:28 03/23/21 05:28 03/23/21 05:28 03/23/21 05:28 03/23/21 05:28 Oxygen Flow Rate (L/min) 2 Oxygen Delivery Method Room Air Weight: 111.266 kg Body Mass Index (BMI) 45.7 Intake & Output: Intake and Output for Last 24 Hours 03/21/21 03/22/21 03/23/21 23:59 23:59 23:59 Intake Total 600 / 600 600 / 600 720 / 720 Balance 600 / 600 600 / 600 720 / 720 Lab / Micro Data Result Diagrams: 03/20/21 08:50 03/22/21 04:21 Physical Exam Const alert and oriented x3 General Appearance: cooperative HEENT normocephalic Extremity Extremity Narrative: No calf tenderness Diminished pulses Muscle wasting noted Pain to palpate medial malleolus and not to lateral malleolus or anterior ankle joint Pain diffuse to palpate midfoot General Extremity: edema; Negative for cyanosis Skin Skin Narrative: no purulence, no streaking, no odor, no infection. Skin is atrophic and hairless. There is no fracture blisters or wounds. No ecchymosis. General Skin Exam: Negative for erythema Neuro Neuro Narrative: Epicritic sensation is intact via light touch Psych cooperative and affect normal Assessment & Plan Assessment/Plan (1) Diabetic neuropathy: (2) Walking difficulty due to ankle and foot: (3) Fracture of medial malleolus, right, closed: (4) Right foot pain: PLAN: I reviewed and discussed her case. Her x-rays demonstrated nondisplaced medial malleolus fracture and overall the ankle mortise is well aligned. There is evidence of prior open reduction internal fixation of fibula fracture which does not appear to be reinjured. Additionally her foot x-ray demonstrates first metatarsal lateral base fracture and also nondisplaced fractures of the second third and fourth metatarsal bases. There is no jeronimo diastases. We discussed the anticipated healing time of fractures and I recommend nonweightbearing status at this time with CAM Walker or posterior mold splint. To use assistive device. To work with physical and occupational therapy. A well-padded posterior mold splint was applied in a neutral position after verbal consent was obtained. He tolerated this well. To follow-up with the [facility] in 1 month to obtain new x-rays and to update her potential weightbearing status. Please do not hesitate to call me if you have any questions. Marisela Liao DPM, [facility] [phone]
[2021-03-23 17:47] VITALS: BP 106/62; PULSE 55
[2021-03-23 20:52] VITALS: PULSE 56; RESP 18; O2SAT 95
[2021-03-23] MEDS: Clopidogrel Bisulfate 75 MG Tablet PO (21:04)
[2021-03-23] MEDS: Atorvastatin Calcium 40 MG Tablet PO (21:04)
--- NOTE | 2021-03-23 21:38 | PCM.DC.SUM ---
Providers Date of Admission: 03/18/21 Primary Care Physician: Dr. Sudheer Lion MD Consultations 03/18/21 22:46 Consult: Podiatry Routine Consulting Provider: Hoang Lopez Reason for Consult: Right ankle fracture. EMERGENT Consult: No MD Notified: Yes Date Notified: 03/21/21 Time Notified: 08:30 Method of Notification: Verbal 03/23/21 11:16 Consult: Hospice / Palliative Care Routine Consulting Provider: [facility] Reason for Consult: Palliative - stroke, CAD, pain EMERGENT Consult: No MD Notified: Yes Date Notified: 03/23/21 Time Notified: 11:16 Method of Notification: Provider Initiated Reason For Visit: RT ANKLE FRACTURE AND DEBILITY Diagnosis Discharge Diagnosis (1) Diabetic neuropathy: Status: Acute Code(s): E11.40 - Type 2 diabetes mellitus with diabetic neuropathy, unspecified (2) Walking difficulty due to ankle and foot: Status: Acute Code(s): R26.2 - Difficulty in walking, not elsewhere classified (3) Fracture of medial malleolus, right, closed: Status: Acute Code(s): S82.51XA - Displaced fracture of medial malleolus of right tibia, initial encounter for closed fracture (4) Right foot pain: Status: Acute Code(s): M79.671 - Pain in right foot Medications at Discharge Home Medications clopidogrel 75 mg PO QHS 08/25/15 atorvastatin 40 mg PO QHS 01/27/16 duloxetine 60 mg PO DAILY 07/05/17 amlodipine 10 mg PO DAILY 10/31/18 folic acid 1 mg PO DAILY 12/13/18 polyethylene glycol 3350 17 g PO DAILY PRN 04/23/19 oxycodone-acetaminophen 1 tab PO Q4H PRN PRN 04/28/19 aspirin 81 mg tablet,delayed release 81 mg PO DAILY tab 06/16/20 tizanidine 4 mg PO TID PRN 07/12/20 metoprolol tartrate 25 mg tablet 25 mg PO BID #180 tab 09/20/20 alprazolam 0.5 - 1 mg PO BID 03/17/21 diphenhydramine-acetaminophen [Tylenol PM Extra Strength] 2 tab PO QHS PRN 03/17/21 famotidine 20 mg PO DAILY 03/17/21 lisinopril 20 mg PO DAILY 03/17/21 pregabalin 75 mg PO BID 03/17/21 cholecalciferol (vitamin D3) 25 mcg PO DAILY 03/18/21 enoxaparin 40 mg SUBCUT BID 03/18/21 sennosides-docusate sodium [Stool Softener-Stimulant Laxat] 2 tab PO BID PRN PRN #0 tab 03/18/21 acetaminophen 1,000 mg PO Q8H #0 tab 03/24/21 oxycodone 10 mg PO Q4H PRN PRN 7 Days #84 tab 03/24/21 pantoprazole 40 mg PO DAILY 30 Days #30 tab 03/24/21 tramadol 50 mg PO Q6H PRN PRN 7 Days #28 tab 03/24/21 Hospital Course Operations None Procedures None Summary of Care Provided Minutes Spent on Discharge: 35 Hospital Course: 65 year old female with below past medical history hospitalized for right ankle fracture, admitted to TCU with debility, here for rehabilitation, strengthening, prior to discharge home with . Discharge home with 03/26/2021, No needs, Palliative, wheelchair. Physical Exam Const alert and oriented x3 General Appearance: cooperative HEENT normocephalic Eyes PERRL and EOMs intact bilaterally Neck supple, no JVD and no carotid bruits Resp normal respiratory effort, normal air movement and clear to auscultation bilaterally Cardio regular rate and regular rhythm GI normal to inspection, nondistended, normoactive bowel sounds, non-tender and non-distended Extremity normal capillary refill General Extremity: Negative for edema Skin no rashes or lesions noted General Skin Exam: no breakdown Psych affect normal Appearance: appropriate Weight / BMI Weight Weight: 111.266 kg Body Mass Index (BMI) 45.7 ABG / Lab / Microbiology Data Result Diagrams: 03/20/21 08:50 03/22/21 04:21 D/C Instructions Discharge Diet: No restrictions Discharge Activity: Return to Normal Activity, May Shower and Use Walker Weight Bearing Status: No weight bearing (Right lower extremity.) Call your doctor if you observe: Fever of 101 or Higher, Inability to urinate, Inability to have a bowel movement, Shortness of breath, Dizziness, Fainting spells, Swelling in the ankles, Chest pain and Uncontrolled pain Please Follow Up With: Sudheer Lion MD When: 1 week. Meaningful Use Info Meaningful Use Diagnoses (Choose all that apply): None applicable Discharge Plan Admission Admit Date/Time: 03/18/21 18:05 Primary Reason for Your Visit: Debility. Attending Provider: Adrián Almaraz Chi Primary Care Provider: Sudheer Lion Consulting Providers: Hoang Lopez ; Madeleine Lin ; Moustapha Mathur ; Stacie Spaulding ; Sarah Roberts ; Sandhya Covington ; Monique White TOWER TECHNICIAN Instructions Additional Instructions / Restrictions: To maintain a nonweightbearing status to the right lower extremity with a cam walker boot; to use assistive device. To elevate right lower extremity at rest. Discharge home with 03/26/2021, No needs, Palliative, wheelchair. Discharge Orders/Prescriptions Prescriptions: New acetaminophen 500 mg Tablet 1,000 mg PO Q8H Qty: 0 RF: 0 oxycodone 5 mg Tablet 10 mg PO Q4H PRN PRN (Reason: Pain Score 6-10) 7 Days Qty: 84 RF: 0 tramadol 50 mg Tablet 50 mg PO Q6H PRN PRN (Reason: Pain Score 1-5) 7 Days Qty: 28 RF: 0 pantoprazole 40 mg Tablet,Delayed Release (Dr/Ec) 40 mg PO DAILY 30 Days Qty: 30 RF: 0 Continued aspirin 81 mg tablet,delayed release (DR/EC) 81 mg PO DAILY RF: 0 clopidogrel 75 MG tablet 75 mg PO QHS RF: 0 atorvastatin 40 MG tablet 40 mg PO QHS RF: 0 duloxetine 60 MG capsule,delayed release(DR/EC) 60 mg PO DAILY RF: 0 amlodipine 10 MG tablet 10 mg PO DAILY RF: 0 folic acid 1 MG tablet 1 mg PO DAILY RF: 0 polyethylene glycol 3350 17 GM packet 17 g PO DAILY PRN (Reason: Constipation) RF: 0 tizanidine 4 MG capsule 4 mg PO TID PRN (Reason: Spasms) RF: 0 famotidine 20 mg tablet 20 mg PO DAILY RF: 0 diphenhydramine-acetaminophen [Tylenol PM Extra Strength] 25-500 mg Tablet 2 tab PO QHS PRN (Reason: Sleep) RF: 0 pregabalin 75 mg capsule 75 mg PO BID RF: 0 alprazolam 1 MG tablet 0.5 - 1 mg PO BID RF: 0 lisinopril 20 mg tablet 20 mg PO DAILY RF: 0 sennosides-docusate sodium [Stool Softener-Stimulant Laxat] 8.6-50 mg Tablet 2 tab PO BID PRN PRN (Reason: Constipation) Qty: 0 RF: 0 cholecalciferol (vitamin D3) 25 mcg (1,000 unit) tablet 25 mcg PO DAILY RF: 0 metoprolol tartrate 25 mg tablet 25 mg PO BID Qty: 180 RF: 0 No Action oxycodone-acetaminophen 1 TABLET tablet 1 tab PO Q4H PRN PRN (Reason: Pain) RF: 0 enoxaparin 40 mg/0.4 mL syringe 40 mg subcut BID RF: 0 Referrals / Follow Up: Marisela Liao DPM [STAFF PHYSICIAN] - Within 1 Month Sudheer Lion MD [Primary Care Provider] - Disposition Disposition (needs filled in before D/C Order can be placed): Home Health Service
[2021-03-24] MEDS: Senna/Docusate Sodium 1 Tablet 2 TABLET PO ×2 (05:13→17:43)
[2021-03-24] MEDS: Pregabalin 75 MG Capsule PO ×2 (05:13→17:42)
[2021-03-24] MEDS: amLODIPine 10 MG Tablet PO (05:13)
[2021-03-24] MEDS: ALPRAZolam 0.5 MG Tablet 1 MG PO ×2 (05:13→21:55)
[2021-03-24] MEDS: Pantoprazole Sodium 40 MG Tablet PO (05:13)
[2021-03-24] MEDS: Lisinopril 20 MG Tablet PO (05:13)
[2021-03-24] MEDS: oxyCODONE 5 MG Tablet 10 MG PO ×3 (05:13→21:54)
[2021-03-24] MEDS: DULoxetine Hcl 60 MG Capsule PO (05:13)
[2021-03-24 05:14] VITALS: PULSE 55
[2021-03-24] MEDS: Enoxaparin 40 MG/0.4 ML Syringe SC (05:14)
[2021-03-24] MEDS: Metoprolol Tartrate 25 MG Tablet PO ×2 (05:14→17:42)
[2021-03-24] MEDS: Acetaminophen 500 MG Tablet 1000 MG PO ×3 (05:14→21:56)
[2021-03-24 05:16] VITALS: BP 117/63; PULSE 55; RESP 16; TEMP 36.2; O2SAT 98
[2021-03-24] MEDS: Folic Acid 1 MG Tablet PO (08:55)
[2021-03-24] MEDS: Aspirin E.C. 81 MG Tablet PO (08:55)
[2021-03-24] MEDS: Cholecalciferol (VIT D3) 25 MCG TABLET (1,000 UNITS) PO (08:55)
--- NOTE | 2021-03-24 10:28 | NURSING ---
PALLIATIVE IN TO SEE PT. PER NATACHA/PALLIATIVE,PT REFUSED TO HAVE PALLIATIVE CARE.
--- NOTE | 2021-03-24 10:39 | CON.PCM.PA_ITS ---
Assessment & Plan Assessment/Plan (1) Right foot pain: (2) Anxiety: (3) Stroke: (4) Coronary artery disease: (5) Depression: (6) Debility: PLAN: MACKENZIE AKHTAR, is a 65 F who was referred to [facility] due to repeated falls, debility, pain and anxiety. Discussed with patient about Palliative services and requirement for life expectancy of 3 years or less. Patient has declines services at this time. If patient would change her mind, plan would be as follows: 1) Right foot pain: Continue management with podiatry and pain management. Patient does not qualify for Palliative pain management due to life expectancy most likely greater than 3 years. Patient has history of misuse of benzodiazepines that would require additional surveillance. 2) Stroke/Debility: Continue PT/OT did build a ramp at home for discharge. Patient is to continue to be nonweightbearing. 3) Depression and anxiety: Managed currently with Xanax and Cymbalta. Managed by PCP. Counseling has been encouraged and Palliative would encourage the same due to history reported in SS notes. 3) CAD: Palliative would encourage regular visits with cardiology or PCP pending need. Diet education and symptom managment would be encouraged. Thank you for the opportunity to participate in this patient's care, please do not hesitate to contact [facility] with any further questions or concerns. Palliative direct line is [phone]. Patient has declined Palliative services at this time, but was made aware of services available. Greater than 50% of F2F visit dedicated to education and counseling of palliative care services, medications, comorbid conditions and potential assistance with management. Start time: 09:50 End time: 11:00 HPI Consult Data Date of Consult: 03/24/21 HPI Narrative HPI Narrative: MACKENZIE AKHTAR, is a 65 F who wsa referred to [facility] due to repeated falls, debility, pain and anxiety. Past medical history listed below: She presented to the [facility] ER on 03/17/21 with right ankle pain after a fall. She had a previous right ankle fracture with dislocation that required surgery. She has chronic right sided weakness from a prior stroke. Reports that she gets around and has learned how to fall without hurting herself. She typically leans on railings, but the railing broke and she was unable to pad the fall. X-ray was performed and showed a nondisplaced transverse fracture over the medial malleolus. She was advised that she would need to be nonweightbearing on her right lower extremity and was placed in a boot. Vitals ad labs were unremarkable and discharged to TCU on 03/18/2021 with plan for rehab, strengthening prior to discharge with . Did not tolerate the walking boot and was fitted with a well-padded posterior mold splint in a neutral position per Dr. Liao and is to [facility] 1 month for X rays. Seen in her room in TCU. Cuddled up in a blanket taking a nap. Responsive and agreeable to discussion of Palliative services. No acute distress noted. Answers questions appropriately. Does not feel like her symptoms align with life expectancy of 3 years or less and understanding that pain management would not be managed under Palliative. Offered support for anxiety with counseling support and/or encouraging counseling support. Did not feel that Palliative services would be needed at this time. [facility] Medical History Anxiety Atherosclerotic heart disease of [place] coronary artery without angina pectoris Closed right ankle fracture CVA (cerebral vascular accident) Depression Essential hypertension Heart disease Hyperlipidemia Insomnia Morbid obesity Nocturnal hypoxemia Presence of stent in coronary artery (~02/27/12) Pulmonary hypertension Right sided cerebral infarction Suicide attempt by drug ingestion Home Medications clopidogrel 75 mg PO QHS 08/25/15 [History Last Taken 03/16/21] atorvastatin 40 mg PO QHS 01/27/16 [History Last Taken 03/16/21] duloxetine 60 mg PO DAILY 07/05/17 [History Last Taken 03/16/21] amlodipine 10 mg PO DAILY 10/31/18 [History Last Taken 03/16/21] folic acid 1 mg PO DAILY 12/13/18 [History Last Taken 03/16/21] polyethylene glycol 3350 17 g PO DAILY PRN 04/23/19 [History Last Taken 03/15/21] oxycodone-acetaminophen 1 tab PO Q4H PRN PRN 04/28/19 [History Last Taken 03/16/21] aspirin 81 mg tablet,delayed release 81 mg PO DAILY tab 06/16/20 [History Last Taken 03/16/21] tizanidine 4 mg PO TID PRN 07/12/20 [History Last Taken 03/15/21] metoprolol tartrate 25 mg tablet 25 mg PO BID #180 tab 09/20/20 [Rx Last Taken 03/16/21] alprazolam 0.5 - 1 mg PO BID 03/17/21 [History Last Taken 03/16/21] diphenhydramine-acetaminophen [Tylenol PM Extra Strength] 2 tab PO QHS PRN 03/17/21 [History Last Taken 03/16/21] famotidine 20 mg PO DAILY 03/17/21 [History Last Taken 03/16/21] lisinopril 20 mg PO DAILY 03/17/21 [History Last Taken 03/16/21] pregabalin 75 mg PO BID 03/17/21 [History Last Taken 03/16/21] cholecalciferol (vitamin D3) 25 mcg PO DAILY 03/18/21 [History Last Taken Unknown] enoxaparin 40 mg SUBCUT BID 03/18/21 [History Last Taken Unknown] sennosides-docusate sodium [Stool Softener-Stimulant Laxat] 2 tab PO BID PRN PRN #0 tab 03/18/21 [Rx Last Taken Unknown] acetaminophen 1,000 mg PO Q8H #0 tab 03/24/21 [Rx Last Taken Unknown] oxycodone 10 mg PO Q4H PRN PRN 7 Days #84 tab 03/24/21 [Rx Last Taken Unknown] pantoprazole 40 mg PO DAILY 30 Days #30 tab 03/24/21 [Rx Last Taken Unknown] tramadol 50 mg PO Q6H PRN PRN 7 Days #28 tab 03/24/21 [Rx Last Taken Unknown] Allergy/AdvReac Type Severity Reaction Status Date / Time ciprofloxacin [From Cipro] Allergy Unknown Verified 03/17/21 14:48 escitalopram oxalate Allergy Unknown Verified 03/17/21 14:48 [From Lexapro] heparin Allergy real Verified 03/17/21 14:48 anxious mupirocin [From Bactroban] Allergy Unknown Verified 03/17/21 14:48 trazodone Allergy knocked Verified 03/17/21 14:48 me out adhesive tape AdvReac Rash Verified 03/17/21 14:48 Family History Mother CAD (coronary artery disease) Hypertension Father CAD (coronary artery disease) Brother Myocardial infarction Hypertension Sister Hypertension Other CVA (cerebral vascular accident) Surgical History H/O arthroscopy of right knee History of ankle surgery History of cholecystectomy History of foot surgery History of hernia repair History of hysterectomy History of knee replacement History of tonsillectomy Presence of coronary angioplasty implant and graft (~02/27/12) Status post total right knee replacement (~12/25/18) Social History current occupational status: retired Smoking Status: Never smoker Electronic Cigarette Use: not used second hand exposure: No alcohol intake: former substance use type: does not use and other details: Uses CBD oil infrequently caffeine: Yes Type: carbonated beverages and tea ROS Cardiovascular Cardiovascular: Denies chest pain, chest pain at rest, chest pain with activity, dyspnea at rest or dyspnea on exertion Respiratory/Chest Respiratory/Chest: Denies chest tightness, cough or dyspnea on exertion Gastrointestinal Gastrointestinal: Denies abdominal pain Musculoskeletal Musculoskeletal: Reports joint pain, limited range of motion, muscle spasms and other Details: right sided weakness Neurologic Neurologic: Denies numbness or tingling Psychiatric Psychiatric: Denies anxiety, behavioral changes, change in appetite or cognitive impairment Physical Exam Const alert, oriented x3 and no apparent distress General Appearance: cooperative Orientation / Consciousness: awake, oriented to person, oriented to place and oriented to time HEENT normocephalic Chest Chest: symmetrical chest wall rise Resp normal respiratory effort, normal air movement and clear to auscultation bilaterally Effort and Inspection: able to speak in complete sentences and symmetric chest movement Cardio regular rate, regular rhythm, S1 normal heart sound, S2 normal heart sound and no murmurs GI normal to inspection, nondistended, normoactive bowel sounds, soft to palpation and non-tender Extremity no clubbing, cyanosis or edema Extremity Narrative: Right sided weakness. Splint intact to right ankle
--- NOTE | 2021-03-24 12:23 | MDS.RN ---
Pain interview for SHALONDA 03/25/21 completed.
[2021-03-24 17:42] VITALS: BP 117/63; PULSE 55
[2021-03-24 21:50] VITALS: PULSE 58; RESP 16; O2SAT 94
[2021-03-24] MEDS: Atorvastatin Calcium 40 MG Tablet PO (21:55)
[2021-03-24] MEDS: Clopidogrel Bisulfate 75 MG Tablet PO (21:56)
[2021-03-25] MEDS: Lisinopril 20 MG Tablet PO (06:05)
[2021-03-25] MEDS: Pregabalin 75 MG Capsule PO ×2 (06:05→17:53)
[2021-03-25] MEDS: Pantoprazole Sodium 40 MG Tablet PO (06:05)
[2021-03-25] MEDS: amLODIPine 10 MG Tablet PO (06:05)
[2021-03-25] MEDS: ALPRAZolam 0.5 MG Tablet 1 MG PO ×2 (06:05→21:00)
[2021-03-25] MEDS: DULoxetine Hcl 60 MG Capsule PO (06:05)
[2021-03-25] MEDS: Acetaminophen 500 MG Tablet 1000 MG PO ×3 (06:06→21:02)
[2021-03-25] MEDS: Senna/Docusate Sodium 1 Tablet 2 TABLET PO ×2 (06:06→17:54)
[2021-03-25 06:07] VITALS: PULSE 60
[2021-03-25] MEDS: Enoxaparin 40 MG/0.4 ML Syringe SC (06:07)
[2021-03-25] MEDS: Metoprolol Tartrate 25 MG Tablet PO ×2 (06:07→17:55)
[2021-03-25] MEDS: Polyethylene Glycol 3350 17 GM PACKET PO (06:08)
[2021-03-25 06:10] VITALS: BP 149/64; PULSE 61
[2021-03-25] MEDS: Folic Acid 1 MG Tablet PO (07:51)
[2021-03-25] MEDS: Cholecalciferol (VIT D3) 25 MCG TABLET (1,000 UNITS) PO (07:51)
[2021-03-25] MEDS: Aspirin E.C. 81 MG Tablet PO (07:51)
[2021-03-25] MEDS: traMADol 50 MG Tablet PO (12:22)
[2021-03-25 15:33] VITALS: BP 130/60; PULSE 56; RESP 18; TEMP 36.5; O2SAT 97
[2021-03-25] MEDS: oxyCODONE 5 MG Tablet 10 MG PO ×2 (15:53→21:08)
[2021-03-25 17:55] VITALS: PULSE 61
[2021-03-25] MEDS: Clopidogrel Bisulfate 75 MG Tablet PO (21:02)
[2021-03-25] MEDS: Atorvastatin Calcium 40 MG Tablet PO (21:02)
[2021-03-26] MEDS: Polyethylene Glycol 3350 17 GM PACKET PO (06:29)
[2021-03-26] MEDS: Enoxaparin 40 MG/0.4 ML Syringe SC (06:30)
[2021-03-26] MEDS: Acetaminophen 500 MG Tablet 1000 MG PO (06:32)
[2021-03-26 06:33] VITALS: BP 151/91; PULSE 67
[2021-03-26] MEDS: DULoxetine Hcl 60 MG Capsule PO (06:33)
[2021-03-26] MEDS: amLODIPine 10 MG Tablet PO (06:33)
[2021-03-26] MEDS: Senna/Docusate Sodium 1 Tablet 2 TABLET PO (06:33)
[2021-03-26] MEDS: Pantoprazole Sodium 40 MG Tablet PO (06:33)
[2021-03-26] MEDS: Lisinopril 20 MG Tablet PO (06:33)
[2021-03-26] MEDS: Metoprolol Tartrate 25 MG Tablet PO (06:33)
[2021-03-26] MEDS: ALPRAZolam 0.5 MG Tablet 1 MG PO (06:36)
[2021-03-26] MEDS: Pregabalin 75 MG Capsule PO (06:36)
[2021-03-26] MEDS: oxyCODONE 5 MG Tablet 10 MG PO (08:09)
[2021-03-26] MEDS: Aspirin E.C. 81 MG Tablet PO (08:11)
[2021-03-26] MEDS: Folic Acid 1 MG Tablet PO (08:11)
[2021-03-26] MEDS: Cholecalciferol (VIT D3) 25 MCG TABLET (1,000 UNITS) PO (08:12)
[2021-03-26] MEDS: tiZANidine HCl 2 MG Tablet 4 MG PO (08:14)
[2021-03-26 10:00] VITALS: BP 137/69; PULSE 55; RESP 17; RESP 18; TEMP 36.7; O2SAT 98
== END 2021-03-26 10:32 | disposition home health service (06) | DRG 560 ==
PROVIDERS: Admitting Provider Family Medicine Geriatric Medicine; PCP Family Medicine; Visit Provider Family Medicine Geriatric Medicine
DX: S82.891D Other fracture of right lower leg, subsequent encounter for closed fracture with routine healing (principal); I69.351 Hemiplegia and hemiparesis following cerebral infarction affecting right dominant side; Z68.42 Body mass index [BMI] 45.0-49.9, adult; S92.311D Displaced fracture of first metatarsal bone, right foot, subsequent encounter for fracture with routine healing; S92.324D Nondisplaced fracture of second metatarsal bone, right foot, subsequent encounter for fracture with routine healing; S92.334D Nondisplaced fracture of third metatarsal bone, right foot, subsequent encounter for fracture with routine healing; S92.344D Nondisplaced fracture of fourth metatarsal bone, right foot, subsequent encounter for fracture with routine healing; I27.20 Pulmonary hypertension, unspecified; E11.40 Type 2 diabetes mellitus with diabetic neuropathy, unspecified; Z23 Encounter for immunization; I25.10 Atherosclerotic heart disease of native coronary artery without angina pectoris; E78.5 Hyperlipidemia, unspecified; E66.01 Morbid (severe) obesity due to excess calories; K21.9 Gastro-esophageal reflux disease without esophagitis; F41.9 Anxiety disorder, unspecified; F32.A Depression, unspecified; E55.9 Vitamin D deficiency, unspecified; I10 Essential (primary) hypertension; D50.9 Iron deficiency anemia, unspecified; W19.XXXD Unspecified fall, subsequent encounter; Z79.82 Long term (current) use of aspirin; Z79.899 Other long term (current) drug therapy; Z79.02 Long term (current) use of antithrombotics/antiplatelets; Z79.01 Long term (current) use of anticoagulants
CPT/HCPCS: 0064A; 36415; 73630; 80048; 85025; 87635; 91306; 97110; 97162; 97166; 97530; 97535; 97802; U0003

== ENCOUNTER 2021-05-23 14:10 | Outpatient (CLI) | payer MEDICARE, OTHER, SELFPAY ==
--- NOTE | 2021-05-23 14:23 | RAD_ITS ---
PROCEDURE: Fluoroscopic guided right knee aspiration. DATE: 05/23/2021. INDICATION: Female, 65 years old. Possible infection of the right prosthetic knee joint. PHYSICIAN: Boone Castro M.D. ACCESS SITE: Right knee. NEEDLE: 22-gauge spinal needle. FLUOROSCOPY TIME (if supplied): (0:34) minutes/seconds. No images were obtained. FINDINGS: The risks, benefits, and alternatives to the procedure were explained to the patient. The specific risks of bleeding, infection, and neurovascular injury were detailed and accepted. Witnessed informed consent was obtained. A 22-gauge spinal needle was positioned under radiographic fluoroscopic localization. Approximately 2 cc of blood tinged purulent fluid was aspirated. The patient tolerated the procedure well without any immediate complications. RAD/Inj/Asp Josue Jt Should/Hip/Knee IMPRESSION: 1. Successful fluoroscopic guided right knee aspiration with aspiration of 2 cc of bloody purulent fluid. Electronically Signed: Boone Castro MD at 15:14 EST ,
[2021-05-23] MEDS: Lidocaine 2% (5ml sdv) 5 ML VIAL.MPF INFILT (14:35)
[2021-05-23 15:13] LABS: RBC /Synovial Fluid 0.044 10^6/uL (0); Synovial Fld Mononuclear WBC % 3.9 %; Synovial Fld Polynuclear WBC % 96.1 %
[2021-05-23 15:38] LABS: AUTO B FLUID DILUENT BKGD CT WBC <0.1 RBC <0.01 (W<.1,R<.01); Appearance /Synovial Fluid Turbid (CLEAR); Color / Synovial Fluid Pink (Pale Yellow); Source / Synovial Fluid RIGHT KNEE; Viscosity / Synovial Fluid Sl. Viscous (HIGH)
[2021-05-23 15:54] LABS: Monocyte /Synovial Fluid 1 %; Neutrophil 99 % (0-25)
[2021-05-23 16:47] LABS: Body Fluid QC Type(s) BF1Q
[2021-05-25 09:22] LABS: Pathologist Comment Reviewed
== END 2021-05-23 23:59 | disposition home or self-care (01) ==
LOC: RAD 14:12
PROVIDERS: PCP Family Medicine; Referring Provider Orthopaedic Surgery; Visit Provider Orthopaedic Surgery
DX: M25.561 Pain in right knee (principal); G89.29 Other chronic pain; M25.669 Stiffness of unspecified knee, not elsewhere classified
CPT/HCPCS: 20610; 77002; 87070; 87075; 87077; 87186; 87205; 89050; 89051

== ENCOUNTER 2021-06-02 15:07 | Outpatient (CLI) | payer MEDICARE, OTHER, SELFPAY ==
[2021-06-02 18:59] LABS: Anion Gap 8 (5-15); BUN 13 mg/dL (7-18); BUN/Creat Ratio 14.8 RATIO (10-20); Calcium,Total 9.4 mg/dL (8.5-10.1); Chloride 102 mmol/L (98-107); Cholesterol 138 mg/dL (200); Creatinine, Serum 0.88 mg/dL (0.55-1.02); EST Glomerular Filtration Rate 68 mL/min (>60); Est Glom Filt Rate - Afr Amer 83 mL/min (>60); Glucose 126 mg/dL (74-106); High Density Lipoprotein 52 mg/dL; Potassium 4.9 mmol/L (3.5-5.1); Sodium Level 137 mmol/L (136-145); Triglycerides 138 mg/dL; Very Low Density Lipoprotein 28 mg/dL (5-40)
== END 2021-06-02 23:59 | disposition home or self-care (01) ==
LOC: MFPLAB 15:14
PROVIDERS: PCP Family Medicine; Referring Provider Family Medicine; Visit Provider Family Medicine
DX: E11.9 Type 2 diabetes mellitus without complications (principal)
CPT/HCPCS: 36415; 80048; 80061

== ENCOUNTER 2021-07-01 15:24 | Outpatient (CLI) | payer MEDICARE, OTHER, SELFPAY | END 2021-07-01 23:59 | disposition home or self-care (01) | LOC: LABSPEC 15:26 | PROVIDERS: PCP Family Medicine; Visit Provider Family Medicine | DX: Z20.822 Contact with and (suspected) exposure to COVID-19 (principal) | CPT/HCPCS: 87635; U0003; U0005 ==

== ENCOUNTER 2021-07-25 11:33 | Outpatient (CLI) | payer MEDICARE, OTHER, SELFPAY ==
[2021-07-25 12:40] LABS: Erythrocyte Sedimentation Rate 72 mm/hr (0-30)
[2021-07-25 12:43] LABS: Basophil# 0.09 X10^3/uL; Basophil% 1.2 % (0-1); Eosinophils% 5.4 % (0-5); Hemoglobin 7.5 g/dL (12.0-15.0); Lymphocyte % 17.4 % (19-41); Mean Corpuscular Hgb 25.6 pg (27.0-32.0); Mean Corpuscular Volume 85.3 fL (81-99); Monocyte# 0.65 X10^3/uL; Monocyte% 8.7 % (0-10); NRBC Flagged by Analyzer 0 % (0-5); Neutrophil # 5.01 X10^3/uL (2.7-7.7); Platelet Count 296 K/mm3 (150-450); RBC Distribution Width CV 19.8 % (11.6-14.6); RBC Distribution Width SD 60.9 fl (35.1-43.9); Red Blood Count 2.93 M/mm3 (4.2-5.4); White Blood Count 7.5 K/mm3 (4.4-11.0)
[2021-07-25 12:55] LABS: ALB/GLOB Ratio 0.7 RATIO (0.9-2.4); AST(SGOT) 23 U/L (15-37); Alanine Aminotransfer ALT/SGPT 18 U/L (13-56); Albumin, Serum 2.3 g/dL (3.2-5.0); Alkaline Phosphatase 156 U/L (45-117); Anion Gap 7 (5-15); BUN 16 mg/dL (7-18); BUN/Creat Ratio 15.1 RATIO (10-20); Calcium,Total 8.4 mg/dL (8.5-10.1); Chloride 111 mmol/L (98-107); Creatinine, Serum 1.06 mg/dL (0.55-1.02); EST Glomerular Filtration Rate 55 mL/min (>60); Est Glom Filt Rate - Afr Amer 66 mL/min (>60); Globulin 3.5 g/dL (2.2-4.2); Glucose 160 mg/dL (74-106); Potassium 3.8 mmol/L (3.5-5.1); Protein, Total 5.8 g/dL (6.4-8.2); Sodium Level 142 mmol/L (136-145)
== END 2021-07-25 23:59 | disposition home or self-care (01) ==
LOC: LABSPEC 11:36
PROVIDERS: PCP Family Medicine; Visit Provider Orthopaedic Surgery Adult Reconstructive Orthopaedic Surgery
DX: E10.69 Type 1 diabetes mellitus with other specified complication (principal); Z96.651 Presence of right artificial knee joint; Z79.2 Long term (current) use of antibiotics
CPT/HCPCS: 80053; 85025; 85652; 86140

== ENCOUNTER → 2021-08-01 | Outpatient (CLI) | payer MEDICARE, OTHER, SELFPAY ==
[2021-08-01 13:40] LABS: Erythrocyte Sedimentation Rate 55 mm/hr (0-30)
[2021-08-01 13:41] LABS: Absolute Lymphocyte Count 1.62 X10^3/uL (0.83-4.51); Absolute Neutrophil Count 3.4 X10^3/uL (2.0-7.7); Basophil# 0.06 X10^3/uL; Eosinophil# 0.42 X10^3/uL; Eosinophils% 7.1 % (0-5); Hematocrit 29.7 % (37-47); Hemoglobin 8.7 g/dL (12.0-15.0); Lymphocyte # 1.62 X10^3/ul (0.83-4.51); Lymphocyte % 27.2 % (19-41); Mean Corp Hgb Conc 29.3 g/dL (32-36); Mean Corpuscular Volume 85.3 fL (81-99); Mean Platelet Vol. 9.9 fl (6.2-12.0); Monocyte# 0.45 X10^3/uL; Monocyte% 7.6 % (0-10); NRBC Flagged by Analyzer 0 % (0-5); Neutrophil # 3.37 X10^3/uL (2.7-7.7); Neutrophil % 56.6 % (47-70); Platelet Count 384 K/mm3 (150-450); RBC Distribution Width CV 18.7 % (11.6-14.6); RBC Distribution Width SD 57.3 fl (35.1-43.9); Red Blood Count 3.48 M/mm3 (4.2-5.4)
[2021-08-01 13:43] LABS: ALB/GLOB Ratio 0.7 RATIO (0.9-2.4); AST(SGOT) 18 U/L (15-37); Alanine Aminotransfer ALT/SGPT 18 U/L (13-56); Albumin, Serum 2.6 g/dL (3.2-5.0); Alkaline Phosphatase 209 U/L (45-117); Anion Gap 6 (5-15); BUN 11 mg/dL (7-18); BUN/Creat Ratio 10.7 RATIO (10-20); Calcium,Total 8.8 mg/dL (8.5-10.1); Chloride 110 mmol/L (98-107); Creatinine, Serum 1.03 mg/dL (0.55-1.02); EST Glomerular Filtration Rate 57 mL/min (>60); Est Glom Filt Rate - Afr Amer 69 mL/min (>60); Globulin 3.7 g/dL (2.2-4.2); Glucose 133 mg/dL (74-106); Potassium 4.1 mmol/L (3.5-5.1); Protein, Total 6.3 g/dL (6.4-8.2); Sodium Level 142 mmol/L (136-145)
== END | disposition home or self-care (01) ==
LOC: LAB 13:07 → LABSPEC 13:07
PROVIDERS: Referring Provider Orthopaedic Surgery Adult Reconstructive Orthopaedic Surgery; Visit Provider Orthopaedic Surgery Adult Reconstructive Orthopaedic Surgery
DX: Z96.651 Presence of right artificial knee joint (principal); Z47.89 Encounter for other orthopedic aftercare
CPT/HCPCS: 80053; 85025; 85652; 86140

== ENCOUNTER 2021-09-01 16:13 | Inpatient (IN) | payer MEDICARE, OTHER, SELFPAY ==
[2021-09-01 16:19] VITALS: BP 154/67; PULSE 71; PULSE 80; RESP 16; RESP 18; TEMP 35.8; O2SAT 98
[2021-09-01 16:40] VITALS: BMI 46.3
--- NOTE | 2021-09-01 20:48 | HP.PCM_ITS ---
HPI - General General Date of Admission: 09/01/21 HPI Narrative MACKENZIE AKHTAR, is a 65 Female who presents with right prosthetic knee joint infection. 08/18/2021 [facility] performed revision right knee arthroplasty, insertion nonbiodegradable implant with incision and drainage. Patient developed post-operative septic shock. 08/31/2021 Encephalopathy improved. PT/OT for debility. Right knee culture grew Klebsiella, Enterococcus Faecalis. Infectious disease recommended longterm intravenous antibiotics. 09/01/2021 Admit to TCU with debility, here for rehabilitation, strengthening, intravenous antibiotics, prior to discharge home with . [facility] Medical History Anemia Anxiety Atherosclerotic heart disease of [place] coronary artery without angina pectoris Chronic pain Closed right ankle fracture CVA (cerebral vascular accident) Depression Essential hypertension Heart disease Hyperlipidemia Insomnia Morbid obesity Nocturnal hypoxemia Non-smoker Presence of stent in coronary artery (~02/27/12) Pulmonary hypertension Right sided cerebral infarction Suicide attempt by drug ingestion Home Medications atorvastatin 40 mg PO QHS 01/27/16 [History Last Taken 03/16/21] duloxetine 60 mg PO DAILY 07/05/17 [History Last Taken 03/16/21] polyethylene glycol 3350 17 g PO DAILY PRN 04/23/19 [History Last Taken 10/27] oxycodone-acetaminophen 1 tab PO Q6H PRN PRN 04/28/19 [History Last Taken 03/16/21] metoprolol tartrate 25 mg tablet 25 mg PO BID #180 tab 09/20/20 [Rx Last Taken 03/16/21] alprazolam 0.5 mg PO DAILY 03/17/21 [History Last Taken 03/16/21] lisinopril 20 mg PO DAILY 03/17/21 [History Last Taken 03/16/21] pregabalin 75 mg PO BID 03/17/21 [History Last Taken 03/16/21] acetaminophen 650 mg PO Q6H PRN 09/01/21 [History Last Taken Unknown] alprazolam 1 mg PO QHS 09/01/21 [History Last Taken Unknown] ampicillin sodium 2 g IV Q8H 09/01/21 [History Last Taken Unknown] aspirin 81 mg PO DAILY 09/01/21 [History Last Taken Unknown] cyclobenzaprine 5 mg PO TID PRN 09/01/21 [History Last Taken Unknown] enoxaparin 40 mg SUBCUT Q12H 09/01/21 [History Last Taken Unknown] ertapenem [Invanz] 1 g IV Q24H 09/01/21 [History Last Taken Unknown] glimepiride 1 mg PO DAILY 09/01/21 [History Last Taken Unknown] melatonin 6 mg PO QHS 09/01/21 [History Last Taken Unknown] pantoprazole 40 mg PO DAILY 09/01/21 [History Last Taken Unknown] sennosides-docusate sodium [Stool Softener-Stimulant Laxat] 1 tab PO DAILY PRN PRN 09/01/21 [History Last Taken Unknown] Allergy/AdvReac Type Severity Reaction Status Date / Time ciprofloxacin [From Cipro] Allergy Unknown Verified 03/17/21 14:48 escitalopram oxalate Allergy Unknown Verified 03/17/21 14:48 [From Lexapro] heparin Allergy real Verified 03/17/21 14:48 anxious mupirocin [From Bactroban] Allergy Unknown Verified 03/17/21 14:48 trazodone Allergy knocked Verified 03/17/21 14:48 me out adhesive tape AdvReac Rash Verified 03/17/21 14:48 Family History Mother CAD (coronary artery disease) Hypertension Father CAD (coronary artery disease) Brother Myocardial infarction Hypertension Sister Hypertension Other CVA (cerebral vascular accident) Surgical History H/O arthroscopy of right knee History of ankle surgery History of cholecystectomy History of coronary artery stent placement History of foot surgery History of hernia repair History of hysterectomy History of knee replacement History of tonsillectomy Presence of coronary angioplasty implant and graft (~02/27/12) Status post total right knee replacement (~12/25/18) Social History (Updated 09/01/21 @ 20:[address] Adrián Almaraz MD) household members: spouse current occupational status: retired Smoking Status: Never smoker Electronic Cigarette Use: not used second hand exposure: No alcohol intake: former substance use type: does not use and other details: Uses CBD oil infrequently caffeine: Yes Type: carbonated beverages and tea ROS Constitutional Constitutional: Denies chills, fever(s) or weight gain ENT HEENT: Denies headache(s), nasal congestion or nasal discharge Cardiovascular Cardiovascular: Denies chest pain or palpitations Respiratory/Chest Respiratory/Chest: Denies cough, excessive phlegm production or shortness of breath with exertion Gastrointestinal Gastrointestinal: Denies abdominal pain, nausea or vomiting Genitourinary Genitourinary: Denies dysuria Musculoskeletal Musculoskeletal: Reports joint pain and other Details: Right thigh, right knee, right leg pain. ; Denies joint swelling Integumentary Integumentary: Denies rash or wounds Neurologic Neurologic: Denies focal weakness, numbness or tingling Psychiatric Psychiatric: Denies anxiety, auditory hallucinations, depression, homicidal ideation or suicidal ideation Vital Signs Vital Signs Vital Signs: 09/01/21 16:19 Temperature 96.4 F L Temperature Source Temporal Pulse Rate 71 Pulse Rhythm Regular Pulse Strength Normal (2+) Respiratory Rate 18 Respiratory Effort Normal Non-Labored Respiratory Depth Normal Respiratory Pattern Normal Blood Pressure 154/67 H Blood Pressure Mean 96 Blood Pressure Source Monitor Blood Pressure Position Semi-Fowlers Blood Pressure Location Right Arm Pulse Ox 98 Oxygen Delivery Method Room Air Weight Weight: 115 kg Body Mass Index (BMI) 46.3 Physical Exam Const alert General Appearance: cooperative HEENT normocephalic Eyes PERRL and EOMs intact bilaterally Neck supple, no JVD and no carotid bruits Resp normal respiratory effort, normal air movement and clear to auscultation bilaterally Cardio regular rate and regular rhythm GI normal to inspection, nondistended, normoactive bowel sounds, non-tender and non-distended Extremity normal capillary refill Extremity Narrative: Left upper extremity PICC line. Right lower extremity incision clean, dry, intact. General Extremity: Negative for edema Skin no rashes or lesions noted General Skin Exam: no breakdown Psych affect normal Appearance: appropriate Assessment & Plan Assessment/Plan (1) Debility: (2) Infection of prosthetic right knee joint: (3) Septic shock: (4) Acute encephalopathy: (5) Acute anemia: (6) Acute kidney injury: (7) Stroke: (8) Right hemiparesis: (9) Coronary artery disease: (10) Hyperlipidemia: (11) Depression: (12) Gastroesophageal reflux disease: (13) Hypertension: (14) Diabetes mellitus: (15) Iron deficiency anemia: (16) Anxiety: (17) Diabetic polyneuropathy: (18) Muscle spasm: PLAN: 65 year old female with below past medical history hospitalized for revision right total knee arthroplasty with implant 08/18/2021, complicated by septic shock, encephalopathy, acute kidney injury, acute anemia, admitted to TCU with debility, here for rehabilitation, strengthening, intravenous antibiotics, prior to discharge home with . * Debility - PT/OT. * Pain - Tylenol 1000mg q6h prn pain (1-3), Oxycodone 5mg q4h prn pain (4-10). * Bowel - Miralax 17gm daily prn, senna/colace 1 tablet bid prn. * Adult immunization - Administer pneumonia vaccine, covid19 vaccine, flu vaccine as appropriate. * DVT prophylaxis - HAS-BLED score 3 high risk of bleeding, Sidney score 7 high risk of blood clots, overall risk high, Rx Xarelto 10mg daily x 30 days. * Right prosthetic knee injection s/p explant, spacer - Ampicillin 2gm iv q8, Invanz 1gm iv q24h thru 10/02/2021, consult Dr. Salguero. * Anxiety - Xanax 0.5mg daily, 1mg qhs, stable chronic longterm use, GDR not recommended. * Coronary artery disease - Metoprolol 25mg bid, Lisinopril 20mg daily, Hold aspirin 81mg daily while on Xarelto. * Hyperlipidemia - Atorvastatin 40mg qhs, * Muscle spasm - Flexeril 5mg tid prn. * Depression - Duloxetine 60mg daily, stable chronic longterm use, GDR not re commended. * Diabetes Mellitus II - Glimepiride 1mg daily. * Insomnia - Melatonin 6mg qhs. * Skin irritation - Calmoseptine topical bid. * GERD - Pantoprazole 40mg daily. * Diabetic polyneuropathy - Lyrica 75mg bid.
[2021-09-01] MEDS: Atorvastatin Calcium 40 MG Tablet PO (21:08)
[2021-09-01] MEDS: Enoxaparin 40 MG/0.4 ML Syringe SC (21:08)
[2021-09-01] MEDS: Pregabalin 75 MG Capsule PO (21:08)
[2021-09-01] MEDS: MELATONIN 3 MG TABLET 6 MG PO (21:08)
[2021-09-01 21:09] VITALS: BP 147/64; PULSE 69
[2021-09-01] MEDS: ALPRAZolam 0.5 MG Tablet 1 MG PO (21:09)
[2021-09-01] MEDS: Metoprolol Tartrate 25 MG Tablet PO (21:09)
[2021-09-01] MEDS: Menthol/Lanolin/Calamine/Znox 113 GM Tube 1 APPLIC TOPICAL (21:10)
[2021-09-01 21:26] LABS: Bedside Glucose 102 mg/dL (74-106)
[2021-09-01] MEDS: oxyCODONE 5 MG Tablet PO (23:26)
[2021-09-01] MEDS: Acetaminophen 500 MG Tablet 1000 MG PO (23:27)
[2021-09-02] MEDS: oxyCODONE 5 MG Tablet PO ×4 (04:26→23:03)
[2021-09-02] MEDS: 0.9% Saline Lock 10 ML Syringe IV ×2 (04:32→23:10)
[2021-09-02 05:23] VITALS: BP 131/50; PULSE 83
[2021-09-02] MEDS: Pantoprazole Sodium 40 MG Tablet PO (05:23)
[2021-09-02] MEDS: Lisinopril 20 MG Tablet PO (05:23)
[2021-09-02] MEDS: Metoprolol Tartrate 25 MG Tablet PO ×2 (05:23→18:04)
[2021-09-02] MEDS: Menthol/Lanolin/Calamine/Znox 113 GM Tube 1 APPLIC TOPICAL ×2 (05:23→18:04)
[2021-09-02] MEDS: DULoxetine Hcl 60 MG Capsule PO (05:23)
[2021-09-02] MEDS: Pregabalin 75 MG Capsule PO ×2 (05:26→18:04)
[2021-09-02] MEDS: ALPRAZolam 0.5 MG Tablet PO (05:26)
[2021-09-02 05:47] LABS: Absolute Lymphocyte Count 2.41 X10^3/uL (0.83-4.51); Absolute Neutrophil Count 6.2 X10^3/uL (2.0-7.7); Eosinophil# 0.31 X10^3/uL; Eosinophils% 3.1 % (0-5); Hematocrit 29.5 % (37-47); Hemoglobin 8.8 g/dL (12.0-15.0); Lymphocyte # 2.41 X10^3/ul (0.83-4.51); Lymphocyte % 24.4 % (19-41); Mean Corp Hgb Conc 29.8 g/dL (32-36); Mean Corpuscular Hgb 26.9 pg (27.0-32.0); Mean Corpuscular Volume 90.2 fL (81-99); Mean Platelet Vol. 10.1 fl (6.2-12.0); Monocyte% 8.1 % (0-10); NRBC Flagged by Analyzer 0 % (0-5); Neutrophil % 62.9 % (47-70); Platelet Count 383 K/mm3 (150-450); RBC Distribution Width CV 16.4 % (11.6-14.6); RBC Distribution Width SD 54.1 fl (35.1-43.9); Red Blood Count 3.27 M/mm3 (4.2-5.4); White Blood Count 9.9 K/mm3 (4.4-11.0)
[2021-09-02 06:09] LABS: Anion Gap 6 (5-15); BUN 21 mg/dL (7-18); BUN/Creat Ratio 21.8 RATIO (10-20); Calcium,Total 9.4 mg/dL (8.5-10.1); Chloride 105 mmol/L (98-107); Creatinine, Serum 0.96 mg/dL (0.55-1.02); EST Glomerular Filtration Rate 61 mL/min (>60); Est Glom Filt Rate - Afr Amer 74 mL/min (>60); Estimated Creatinine Clearance 44.98 ml/min; Glucose 154 mg/dL (74-106); Potassium 4.2 mmol/L (3.5-5.1); Sodium Level 138 mmol/L (136-145)
[2021-09-02 06:35] LABS: Bedside Glucose 125 mg/dL (74-106)
[2021-09-02] MEDS: Glimepiride 1 MG Tablet PO (08:41)
--- NOTE | 2021-09-02 08:46 | PCA ---
2 assist stand. 1 assist to switch out chair and bsc. 3 assist.
[2021-09-02] MEDS: Acetaminophen 500 MG Tablet 1000 MG PO (09:14)
[2021-09-02] MEDS: Tuberculin,Purif.prot.deriv. 50 TU/ML Vial 0.1 ML ID (09:17)
[2021-09-02 10:00] VITALS: PULSE 66; RESP 16; O2SAT 96
[2021-09-02 10:16] LABS: Bedside Glucose 146 mg/dL (74-106)
--- NOTE | 2021-09-02 13:17 | PCM.CONS.GEN ---
Assessment & Plan Assessment/Plan (1) Infection of prosthetic right knee joint: PLAN: Now s/p spacer placement 08/18/21, discharged on 6 weeks amp/erta, stop date 10/02/21. Weekly bmp, cbc, LFT, and esr. Adjusting amp to q6h. Will request cx data from OSH. Will follow, thank you HPI Consult Data Date of Consult: 09/02/21 HPI Narrative HPI Narrative: MACKENZIE AKHTAR, is a 65 F who presented from [facility] after revision and replacement spacer placement in R knee 08/18/21. Seen by Dr. Serna with ID. Discharged on 6 weeks ampicillin and ertapenem, stop date 10/02/21. Feeling ok, knee soreness is stable. No fever, no n/v/d, no issues with picc. Full ROS performed and neg except as noted above. [facility] Medical History Anemia Anxiety Atherosclerotic heart disease of [place] coronary artery without angina pectoris Chronic pain Closed right ankle fracture CVA (cerebral vascular accident) Depression Essential hypertension Heart disease Hyperlipidemia Insomnia Morbid obesity Nocturnal hypoxemia Non-smoker Presence of stent in coronary artery (~02/27/12) Pulmonary hypertension Right sided cerebral infarction Suicide attempt by drug ingestion Home Medications atorvastatin 40 mg PO QHS 01/27/16 [History Last Taken 03/16/21] duloxetine 60 mg PO DAILY 07/05/17 [History Last Taken 03/16/21] polyethylene glycol 3350 17 g PO DAILY PRN 04/23/19 [History Last Taken 03/15/21] oxycodone-acetaminophen 1 tab PO Q6H PRN PRN 04/28/19 [History Last Taken 03/16/21] metoprolol tartrate 25 mg tablet 25 mg PO BID #180 tab 09/20/20 [Rx Last Taken 03/16/21] alprazolam 0.5 mg PO DAILY 03/17/21 [History Last Taken 03/16/21] lisinopril 20 mg PO DAILY 03/17/21 [History Last Taken 03/16/21] pregabalin 75 mg PO BID 03/17/21 [History Last Taken 03/16/21] acetaminophen 650 mg PO Q6H PRN 09/01/21 [History Last Taken Unknown] alprazolam 1 mg PO QHS 09/01/21 [History Last Taken Unknown] ampicillin sodium 2 g IV Q8H 09/01/21 [History Last Taken Unknown] aspirin 81 mg PO DAILY 09/01/21 [History Last Taken Unknown] cyclobenzaprine 5 mg PO TID PRN 09/01/21 [History Last Taken Unknown] enoxaparin 40 mg SUBCUT Q12H 09/01/21 [History Last Taken Unknown] ertapenem [Invanz] 1 g IV Q24H 09/01/21 [History Last Taken Unknown] glimepiride 1 mg PO DAILY 09/01/21 [History Last Taken Unknown] melatonin 6 mg PO QHS 09/01/21 [History Last Taken Unknown] pantoprazole 40 mg PO DAILY 09/01/21 [History Last Taken Unknown] sennosides-docusate sodium [Stool Softener-Stimulant Laxat] 1 tab PO DAILY PRN PRN 09/01/21 [History Last Taken Unknown] Allergy/AdvReac Type Severity Reaction Status Date / Time ciprofloxacin [From Cipro] Allergy Unknown Verified 03/17/21 14:48 escitalopram oxalate Allergy Unknown Verified 03/17/21 14:48 [From Lexapro] heparin Allergy real Verified 03/17/21 14:48 anxious mupirocin [From Bactroban] Allergy Unknown Verified 03/17/21 14:48 trazodone Allergy knocked Verified 03/17/21 14:48 me out adhesive tape AdvReac Rash Verified 03/17/21 14:48 Family History Mother CAD (coronary artery disease) Hypertension Father CAD (coronary artery disease) Brother Myocardial infarction Hypertension Sister Hypertension Other CVA (cerebral vascular accident) Surgical History H/O arthroscopy of right knee History of ankle surgery History of cholecystectomy History of coronary artery stent placement History of foot surgery History of hernia repair History of hysterectomy History of knee replacement History of tonsillectomy Presence of coronary angioplasty implant and graft (~02/27/12) Status post total right knee replacement (~12/25/18) Social History (Updated 09/01/21 @ 20:[address] Adrián Almaraz MD) household members: spouse current occupational status: retired Smoking Status: Never smoker Electronic Cigarette Use: not used second hand exposure: No alcohol intake: former substance use type: does not use and other details: Uses CBD oil infrequently caffeine: Yes Type: carbonated beverages and tea Physical Exam Const alert, oriented x3 and no apparent distress General Appearance: cooperative Exam Limitations: no limitations HEENT normocephalic and head/scalp atraumatic Eyes PERRL and EOMs intact bilaterally Neck supple and No nodes Resp normal air movement and clear to auscultation bilaterally Cardio regular rate and regular rhythm GI soft to palpation, non-tender and non-distended Skin Skin Narrative: RLE wrapped Neuro CN's II-XII intact bilaterally Lab / Micro Data Result Diagrams: 09/02/21 05:33 09/02/21 05:33 Labs: Laboratory Results - last 24 hr 09/01/21 21:10: POC Glucose 102 09/02/21 05:33: WBC 9.9, RBC 3.27 L, Hgb 8.8 L, Hct 29.5 L, MCV 90.2, MCH 26.9 L, MCHC 29.8 L, RDW Std Deviation 54.1 H, RDW Coeff of Uriel 16.4 H, Plt Count 383, MPV 10.1, Immature Gran % (Auto) 0.500, Neut % (Auto) 62.9, Lymph % (Auto) 24.4, Ness % (Auto) 8.1, Eos % (Auto) 3.1, Baso % (Auto) 1.0, Absolute Neuts (auto) 6.2, Absolute Lymphs (auto) 2.41, Nucleated RBC % 0 09/02/21 05:33: Sodium 138, Potassium 4.2, Chloride 105, Carbon Dioxide 27.0, Anion Gap 6, BUN 21 H, Creatinine 0.96, Estim Creat Clear Calc 44.98, Est GFR (MDRD) Af Amer 74, Est GFR (MDRD) Non-Af 61, BUN/Creatinine Ratio 21.8 H, Glucose 154 H, Calcium 9.4 09/02/21 06:23: POC Glucose 125 H 09/02/21 10:04: POC Glucose 146 H Micro: Microbiology 09/02/21 10:20 Nasal Secretion SARS-CoV-2 Antigen (Rapid) - Final
--- NOTE | 2021-09-02 16:13 | CASEMGMT ---
Addendum entered by Monica Curtis 09/06/21 10:30: Received communication from [facility] that pt is no longer active. Will make new referral if indicated. Original Note: Social Work Met with patient to complete initial assessment. Introduced self and role. Pt wishes to have as primary contact and dtr as secondary. Discussed code status and MOLST form. Pt wishes to be DNR-CCA, no intubation. DNR form signed and bracelet already in place. New MOLST form completed reflecting change. MOLST communicated to , placed in chart. Explained Medicare benefit. Encouraged to contact secondary insurance. Pt is on IV ATB until 10/02. The goal is to return home at the end of IVs at PLOF with , dtr, QUE and young grandson. Explored relationships with family - pt reports no issues; improved. Mood is stable. Notified [facility] of admission. Pt was active with [facility] from previous stay. SW to continue to follow for support and discharge planning. Monica Curtis, [employer]
[2021-09-02 16:27] LABS: Bedside Glucose 72 mg/dL (74-106)
[2021-09-02 16:40] VITALS: BP 158/66; PULSE 66; RESP 16; TEMP 36.9; O2SAT 90
[2021-09-02 18:04] VITALS: BP 158/66; PULSE 66
[2021-09-02] MEDS: Rivaroxaban 10 MG Tablet PO (18:04)
[2021-09-02] MEDS: cycloBENZAPRine HCl 5 MG TABLET PO ×2 (18:51→21:47)
[2021-09-02 21:46] LABS: Bedside Glucose 92 mg/dL (74-106)
[2021-09-02] MEDS: Atorvastatin Calcium 40 MG Tablet PO (21:46)
[2021-09-02] MEDS: ALPRAZolam 0.5 MG Tablet 1 MG PO (21:46)
[2021-09-02] MEDS: MELATONIN 3 MG TABLET 6 MG PO (21:46)
[2021-09-03] MEDS: 0.9% Saline Lock 10 ML Syringe IV (05:09)
[2021-09-03 05:55] VITALS: BP 144/76; PULSE 70
[2021-09-03] MEDS: Lisinopril 20 MG Tablet PO (05:55)
[2021-09-03] MEDS: ALPRAZolam 0.5 MG Tablet PO (05:55)
[2021-09-03] MEDS: Pantoprazole Sodium 40 MG Tablet PO (05:55)
[2021-09-03] MEDS: DULoxetine Hcl 60 MG Capsule PO (05:55)
[2021-09-03] MEDS: Metoprolol Tartrate 25 MG Tablet PO ×2 (05:55→17:06)
[2021-09-03] MEDS: Pregabalin 75 MG Capsule PO ×2 (05:55→17:06)
[2021-09-03] MEDS: oxyCODONE 5 MG Tablet PO ×4 (05:56→20:14)
[2021-09-03] MEDS: Menthol/Lanolin/Calamine/Znox 113 GM Tube 1 APPLIC TOPICAL ×2 (05:58→17:07)
[2021-09-03 06:26] LABS: Bedside Glucose 113 mg/dL (74-106)
[2021-09-03] MEDS: Glimepiride 1 MG Tablet PO (09:10)
[2021-09-03] MEDS: cycloBENZAPRine HCl 5 MG TABLET PO (09:10)
[2021-09-03] MEDS: Acetaminophen 500 MG Tablet 1000 MG PO ×2 (10:05→20:14)
[2021-09-03 11:31] LABS: Bedside Glucose 102 mg/dL (74-106)
[2021-09-03 16:00] VITALS: BP 142/58; PULSE 60; RESP 16; TEMP 36.1; O2SAT 97
[2021-09-03 16:31] LABS: Bedside Glucose 78 mg/dL (74-106)
[2021-09-03 17:06] VITALS: PULSE 64
[2021-09-03] MEDS: Rivaroxaban 10 MG Tablet PO (17:06)
[2021-09-03 20:30] VITALS: PULSE 67; RESP 16; O2SAT 93
[2021-09-03 21:26] LABS: Bedside Glucose 116 mg/dL (74-106)
[2021-09-03] MEDS: ALPRAZolam 0.5 MG Tablet 1 MG PO (21:39)
[2021-09-03] MEDS: Atorvastatin Calcium 40 MG Tablet PO (21:39)
[2021-09-03] MEDS: MELATONIN 3 MG TABLET 6 MG PO (21:40)
[2021-09-04] MEDS: oxyCODONE 5 MG Tablet PO ×3 (00:23→22:33)
[2021-09-04] MEDS: 0.9% Saline Lock 10 ML Syringe IV (00:37)
--- NOTE | 2021-09-04 05:07 | PCA ---
this loans officer and other loans officer put pt on bsc and told her to use call light when she was done.We went and answered 3 other lights that was on. She turned her call light on and by the time we answered the light and walked back to take her off , she had already put her self back to bed.Told the nurse
[2021-09-04] MEDS: DULoxetine Hcl 60 MG Capsule PO (05:51)
[2021-09-04 05:52] VITALS: BP 134/52; PULSE 63
[2021-09-04] MEDS: Pantoprazole Sodium 40 MG Tablet PO (05:52)
[2021-09-04] MEDS: Menthol/Lanolin/Calamine/Znox 113 GM Tube 1 APPLIC TOPICAL ×2 (05:52→17:34)
[2021-09-04] MEDS: Metoprolol Tartrate 25 MG Tablet PO ×2 (05:52→17:35)
[2021-09-04] MEDS: Lisinopril 20 MG Tablet PO (05:52)
[2021-09-04] MEDS: Pregabalin 75 MG Capsule PO ×2 (05:56→17:34)
[2021-09-04 06:41] LABS: Bedside Glucose 119 mg/dL (74-106)
[2021-09-04] MEDS: ALPRAZolam 0.5 MG Tablet PO (06:54)
[2021-09-04] MEDS: Glimepiride 1 MG Tablet PO (08:23)
[2021-09-04 12:20] LABS: Bedside Glucose 88 mg/dL (74-106)
[2021-09-04 16:00] VITALS: BP 119/55; PULSE 72; RESP 16; TEMP 35.9; O2SAT 96
[2021-09-04] MEDS: Rivaroxaban 10 MG Tablet PO (17:34)
[2021-09-04 17:35] VITALS: PULSE 74
[2021-09-04 17:41] LABS: Bedside Glucose 121 mg/dL (74-106)
[2021-09-04] MEDS: ALPRAZolam 0.5 MG Tablet 1 MG PO (21:34)
[2021-09-04] MEDS: Atorvastatin Calcium 40 MG Tablet PO (21:35)
[2021-09-04] MEDS: MELATONIN 3 MG TABLET 6 MG PO (21:35)
[2021-09-04 21:51] LABS: Bedside Glucose 83 mg/dL (74-106)
[2021-09-05] MEDS: oxyCODONE 5 MG Tablet PO ×2 (03:23→15:16)
[2021-09-05] MEDS: ALPRAZolam 0.5 MG Tablet PO (06:00)
[2021-09-05] MEDS: Pregabalin 75 MG Capsule PO ×2 (06:00→17:13)
[2021-09-05 06:01] VITALS: BP 142/54; PULSE 62
[2021-09-05] MEDS: Lisinopril 20 MG Tablet PO (06:01)
[2021-09-05] MEDS: Pantoprazole Sodium 40 MG Tablet PO (06:01)
[2021-09-05] MEDS: DULoxetine Hcl 60 MG Capsule PO (06:01)
[2021-09-05] MEDS: Metoprolol Tartrate 25 MG Tablet PO ×2 (06:01→17:15)
[2021-09-05 06:36] LABS: Bedside Glucose 144 mg/dL (74-106)
[2021-09-05] MEDS: Glimepiride 1 MG Tablet PO (08:26)
[2021-09-05 09:56] VITALS: PULSE 53; RESP 20; TEMP 36.3; O2SAT 99
[2021-09-05 10:45] LABS: Bedside Glucose 95 mg/dL (74-106)
[2021-09-05 11:59] VITALS: BP 140/67
[2021-09-05] MEDS: Acetaminophen 500 MG Tablet 1000 MG PO (15:16)
[2021-09-05 15:27] VITALS: RESP 20
[2021-09-05 16:31] LABS: Bedside Glucose 95 mg/dL (74-106)
[2021-09-05 17:15] VITALS: PULSE 64
[2021-09-05] MEDS: Rivaroxaban 10 MG Tablet PO (17:15)
[2021-09-05] MEDS: Menthol/Lanolin/Calamine/Znox 113 GM Tube 1 APPLIC TOPICAL (17:18)
[2021-09-05 21:26] LABS: Bedside Glucose 99 mg/dL (74-106)
[2021-09-05] MEDS: Atorvastatin Calcium 40 MG Tablet PO (21:29)
[2021-09-05] MEDS: MELATONIN 3 MG TABLET 6 MG PO (21:29)
[2021-09-05] MEDS: ALPRAZolam 0.5 MG Tablet 1 MG PO (21:30)
[2021-09-06] MEDS: oxyCODONE 5 MG Tablet PO ×4 (00:12→23:03)
[2021-09-06] MEDS: cycloBENZAPRine HCl 5 MG TABLET PO ×2 (00:13→21:56)
[2021-09-06] MEDS: 0.9% Saline Lock 10 ML Syringe IV ×5 (00:24→23:06)
[2021-09-06] MEDS: Acetaminophen 500 MG Tablet 1000 MG PO ×3 (03:45→23:56)
--- NOTE | 2021-09-06 03:54 | NURSING ---
Pt calls reporting ASA wrap to rt knee is too tight. This nurse is easily able to place two fingers under ASA wrap. Declines to have knee rewrapped w/ ASA wrap and ice reapplied at this time. Calls again within a minute asking for a pain pill. Informed pt Tylenol is the only medication she is able to have. Upon re-entry to room. pt is sitting on the edge of the bed and is requesting to move to the recliner. Medicated w/ Tylenol [address] order. Assisted to recliner per 2 staff. Positioned for comfort. Call light w/ in reach. Will continue to monitor.
[2021-09-06 04:43] VITALS: BP 146/86; PULSE 71
[2021-09-06] MEDS: Lisinopril 20 MG Tablet PO (04:43)
[2021-09-06] MEDS: Metoprolol Tartrate 25 MG Tablet PO ×2 (04:43→18:23)
[2021-09-06] MEDS: Pantoprazole Sodium 40 MG Tablet PO (04:43)
[2021-09-06] MEDS: DULoxetine Hcl 60 MG Capsule PO (04:43)
[2021-09-06] MEDS: Pregabalin 75 MG Capsule PO ×2 (04:48→18:23)
[2021-09-06] MEDS: ALPRAZolam 0.5 MG Tablet PO (04:48)
--- NOTE | 2021-09-06 05:05 | NURSING ---
Dressing to rt knee changed for the third time this shift as previous dressing became dislodged when transferring to [facility]. ABD applied to unapproximated area of surgical incision, proximal end, and secured w/ paper tape. Instructed to decrease intake of water due to concerns of potentially low Na+ levels- have filled two pitchers in less than a full 12 hour shift. Repositioned in recliner for comfort. Call light w/ in reach. Will continue to monitor.
[2021-09-06 06:21] LABS: Bedside Glucose 82 mg/dL (74-106)
[2021-09-06] MEDS: Glimepiride 1 MG Tablet PO (08:35)
--- NOTE | 2021-09-06 11:01 | PCA ---
notified nurse that patient was toileted on bsc in bathroom with sid gomez present.
[2021-09-06 11:16] LABS: Bedside Glucose 84 mg/dL (74-106)
--- NOTE | 2021-09-06 11:48 | PCA ---
toileted patient with nurse on bsc in bathroom. present.
--- NOTE | 2021-09-06 13:18 | PCA ---
toileted patient with nurse on bedpan with present.
[2021-09-06 14:39] VITALS: PULSE 70; RESP 16; O2SAT 94
--- NOTE | 2021-09-06 14:59 | NURSING ---
At 0840 this nurse gave morning medications and took vitals. This nurse noticed patient's dressing on right lower extremity was draining and covered with ABD pad. This nurse told patient I would be in to clean and change dressing. Patient in position of comfort, call light within reach and patient was clean and dry. At 0915, this nurse back in to change dressing and told this nurse that patient was soaked and we have a problem here. This nurse told aides to write down times patient is toileted/changed.
[2021-09-06 15:17] VITALS: BP 146/78; PULSE 70; RESP 16; TEMP 36.7; O2SAT 95
[2021-09-06 17:05] LABS: Bedside Glucose 53 mg/dL (74-106)
[2021-09-06 18:23] VITALS: BP 146/78; PULSE 70
[2021-09-06] MEDS: Rivaroxaban 10 MG Tablet PO (18:23)
[2021-09-06] MEDS: Menthol/Lanolin/Calamine/Znox 113 GM Tube 1 APPLIC TOPICAL (18:24)
[2021-09-06 21:31] LABS: Bedside Glucose 148 mg/dL (74-106)
[2021-09-06] MEDS: MELATONIN 3 MG TABLET 6 MG PO (21:55)
[2021-09-06] MEDS: ALPRAZolam 0.5 MG Tablet 1 MG PO (21:55)
[2021-09-06] MEDS: Atorvastatin Calcium 40 MG Tablet PO (21:56)
[2021-09-07] MEDS: 0.9% Saline Lock 10 ML Syringe IV ×2 (05:12→11:48)
[2021-09-07] MEDS: ALPRAZolam 0.5 MG Tablet PO (05:21)
[2021-09-07] MEDS: Saliva Substitute 237 ML BOTTLE 15 ML MUCOUS MEM (05:21)
[2021-09-07] MEDS: oxyCODONE 5 MG Tablet PO ×2 (05:21→16:40)
[2021-09-07 05:22] VITALS: BP 139/50; PULSE 70
[2021-09-07] MEDS: DULoxetine Hcl 60 MG Capsule PO (05:22)
[2021-09-07] MEDS: Lisinopril 20 MG Tablet PO (05:22)
[2021-09-07] MEDS: Metoprolol Tartrate 25 MG Tablet PO ×2 (05:22→16:40)
[2021-09-07] MEDS: Pantoprazole Sodium 40 MG Tablet PO (05:22)
[2021-09-07] MEDS: Menthol/Lanolin/Calamine/Znox 113 GM Tube 1 APPLIC TOPICAL (05:28)
[2021-09-07 06:16] LABS: Bedside Glucose 95 mg/dL (74-106)
--- NOTE | 2021-09-07 07:23 | PHA.CONS1_ITS ---
Progress Note - Pharmacy Subjective: TCU Admission. 65 YOF s/p right total knee arthroplasty with implant 08/18/21 at [facility]. Then complicated by encephalopathy and post-op septic shock. Cultures from right knee grew Klebsiella and E. faecalis, ID recommended ampicillin and ertapenem for 6 weeks. Admitted to TCU with debility for IV antibiotics, rehabilitation and strengthening. Objective: Allergies ciprofloxacin [From Cipro] Allergy (Verified 03/17/21 14:48) Unknown escitalopram oxalate [From Lexapro] Allergy (Verified 03/17/21 14:48) Unknown heparin Allergy (Verified 03/17/21 14:48) real anxious mupirocin [From Bactroban] Allergy (Verified 03/17/21 14:48) Unknown trazodone Allergy (Verified 03/17/21 14:48) knocked me out adhesive tape Adverse Reaction (Verified 03/17/21 14:48) Rash Current Medications Generic Name Dose Route Start Last Admin Trade Name Freq PRN Reason Stop Dose Admin Acetaminophen 1,000 mg 09/01/21 21:16 09/06/21 23:56 Acetaminophen 500 Mg Tablet PO 1,000 mg Q6H PRN PRN Administration Pain Score 1-5 Alprazolam 0.5 mg 09/02/21 06:00 09/07/21 05:21 Alprazolam 0.5 Mg Tablet PO 0.5 mg DAILY TUAN Administration Alprazolam 1 mg 09/01/21 22:00 09/06/21 21:55 Alprazolam 0.5 Mg Tablet PO 1 mg QHS TUAN Administration Aspirin 81 mg 10/03/21 08:00 Aspirin 81 Mg Tab.Chew PO BREAKFAST [facility] Atorvastatin Calcium 40 mg 09/01/21 22:00 09/06/21 21:56 Atorvastatin Calcium 40 Mg Tablet PO 40 mg QHS [facility] Administration Calamine/Phenol 1 applic 09/01/21 21:00 09/07/21 05:28 Menthol/Lanolin/Calamine/Znox 113 Gm Tube TOPICAL 1 applic BID TUAN Administration Protocol Cyclobenzaprine HCl 5 mg 09/01/21 16:33 09/06/21 21:56 Cyclobenzaprine Hcl 5 Mg Tablet PO 5 mg TID PRN Administration muscle relaxer Duloxetine HCl 60 mg 09/02/21 06:00 09/07/21 05:22 Duloxetine Hcl 60 Mg Capsule PO 60 mg DAILY TUAN Administration Glimepiride 1 mg 09/02/21 08:00 09/06/21 08:35 Glimepiride 1 Mg Tablet PO 1 mg 0800 TUAN Administration Sodium Chloride 250 mls @ 15 mls/hr 09/01/21 16:50 09/04/21 00:26 IV 15 mls/hr .[id number] PRN Administration Saline Flush Sodium Chloride 250 mls @ 15 mls/hr 09/01/21 16:50 IV .[id number] PRN Additional IVPB Infusion Ertapenem 1 gm/ Sodium 50 mls @ 100 mls/hr 09/02/21 06:00 09/07/21 05:45 Chloride IV 10/02/21 06:00 Infused Q24H TUAN Infusion Ampicillin Sodium 2 gm/ Sodium 100 mls @ 200 mls/hr 09/02/21 18:00 09/07/21 06:30 Chloride IV 10/02/21 22:01 Infused Q6 TUAN Infusion Lisinopril 20 mg 09/02/21 06:00 09/07/21 05:22 Lisinopril 20 Mg Tablet PO 20 mg DAILY TUAN Administration Melatonin 6 mg 09/01/21 22:00 09/06/21 21:55 Melatonin 3 Mg Tablet PO 6 mg QHS TUAN Administration Metoprolol Tartrate 25 mg 09/01/21 18:00 09/07/21 05:22 Metoprolol Tartrate 25 Mg Tablet PO 25 mg BID TUAN Administration Oxycodone HCl 5 mg 09/01/21 21:16 09/07/21 05:21 Oxycodone 5 Mg Tablet PO 5 mg Q4H PRN PRN Administration Pain Score 6-10 Pantoprazole Sodium 40 mg 09/02/21 06:00 09/07/21 05:22 Pantoprazole Sodium 40 Mg Tablet PO 40 mg DAILY TUAN Administration Polyethylene Glycol 17 gm 09/01/21 16:33 Polyethylene Glycol 3350 17 Gm Packet PO DAILY PRN Constipation Pregabalin 75 mg 09/07/21 12:00 Pregabalin 75 Mg Capsule PO BID@1200,2200 TUAN Rivaroxaban 10 mg 09/02/21 17:00 09/06/21 18:23 Rivaroxaban 10 Mg Tablet PO 10/02/21 17:01 10 mg DINNER TUAN Administration Saliva Substitute 15 ml 09/06/21 19:30 09/07/21 05:21 Saliva Substitute 237 Ml Bottle MUCOUS MEM 15 ml 5X/DAY PRN Administration DRY MOUTH Senna/Docusate Sodium 1 tablet 09/01/21 16:33 Senna/Docusate Sodium 1 Tablet PO DAILY PRN PRN Constipation Sodium Chloride 10 - 40 ml 09/01/21 16:50 09/07/21 05:12 0.9% Saline Lock 10 Ml Syringe IV 20 ml UD PRN Administration Open End PICC Flush Sodium Chloride 10 - 40 ml 09/01/21 16:50 0.9 % Nacl (Sterile) Posiflush 10 Ml IV UD PRN Port access or dressing change Tuberculin PPD 0.1 ml 09/09/21 10:00 Tuberculin,Purif.Prot.Deriv. 50 Tu/Ml Vial ID 09/09/21 10:01 X1 ONE Problem List (Last Reviewed 09/02/21 @ 13:[address] Adebayo Salguero MD) Muscle spasm (Acute) Diabetic polyneuropathy (Acute) Anxiety (Acute) Iron deficiency anemia (Acute) Diabetes mellitus (Acute) Hypertension (Chronic) Gastroesophageal reflux disease (Acute) Depression (Acute) Hyperlipidemia (Acute) Coronary artery disease (Acute) Right hemiparesis (Acute) Stroke (Acute) Acute kidney injury (Acute) Acute anemia (Acute) Acute encephalopathy (Acute) Septic shock (Acute) Infection of prosthetic right knee joint (Acute) Debility (Acute) Vital Signs Temp Pulse Resp BP Pulse Ox 98.0 F 70 16 139/50 H 95 09/06/21 15:17 09/07/21 05:22 09/06/21 15:17 09/07/21 05:22 09/06/21 15:17 Oxygen Delivery Method Room Air Weight: 114.107 kg Body Mass Index (BMI) 46.3 Sodium 138 mmol/L (136-145) 09/02/21 05:33 Potassium 4.2 mmol/L (3.5-5.1) 09/02/21 05:33 Chloride 105 mmol/L (98-107) 09/02/21 05:33 Carbon Dioxide 27.0 mmol/L (21.0-32.0) 09/02/21 05:33 Anion Gap 6 (5-15) 09/02/21 05:33 BUN 21 mg/dL (7-18) H 09/02/21 05:33 Creatinine 0.96 mg/dL (0.55-1.02) 09/02/21 05:33 Est GFR (MDRD) Af Amer 74 mL/min (>60) 09/02/21 05:33 Est GFR (MDRD) Non-Af 61 mL/min (>60) 09/02/21 05:33 BUN/Creatinine Ratio 21.8 RATIO (10-20) H 09/02/21 05:33 Glucose 154 mg/dL (74-106) H 09/02/21 05:33 Assessment/Plan: 1. Bowel: Miralax 17gm PO daily PRN constipation and senna/docusate 1T PO BID PRN constipation. Please continue to monitor for S/S of constipation and PRN usage. Patient has had documented bowel movements the past 2 days. 2. DVT prophylaxis: rivaroxaban 10mg PO daily thru 10/02/21. Please continue to monitor for S/S of bleeding and hemoglobin (last 8.8g/dL). 3. Right prosthetic knee infection s/p explant, spacer: ampicillin 2gm IV Q6 thru 10/02/21 and ertapenem 1gm IV daily thru 10/02/21. Dr. Salguero on consult. Please continue to monitor for S/S of infection, renal function and diarrhea. 4. CAD: metoprolol tartrate 25mg PO BID, lisinopril 20mg PO daily and aspirin 81mg PO daily starting 10/03/21 after completion of rivaroxaban. Please continue to monitor BP (last 139/50), HR (last 70), potassium (last 4.2mmol/L), renal function and cough. 5. Hyperlipidemia: atorvastatin 40mg PO QHS. Please continue to monitor for muscle pain and lipid panel (last 06/02/21) at least annually. 6. Muscle spasms: cyclobenzaprine 5mg PO TID PRN muscle relaxer. Please continue to monitor for muscle spasms and PRN usage. Resident has required 5 doses so far. 7. GERD: pantoprazole 40mg PO daily. Please continue to monitor for S/S of GERD and diarrhea. 8. Insomnia: melatonin 6mg PO QHS. Please continue to monitor for excessive drowsiness. Psychotropic Medications: 1. Anxiety: alprazolam 0.5mg PO daily and 1mg PO QHS. Please see physician note regarding GDR. 2. Depression: duloxetine 60mg PO daily. Please see physician note regarding GDR. 3. Diabetic neuropathy: pregabalin 75mg PO BID. Medication being used for neuropathy. GDR not appropriate. Please continue to monitor for S/S of pain, confusion and renal function. Medications Irregularities: *1. Pain: acetaminophen 1000mg PO Q6H PRN pain 1-5 and oxycodone 5mg PO Q4H PRN pain 6-10. Resident has required 19 doses of oxycodone with pain score ranging 6-10 and 9 doses of acetaminophen with pain score from 4-10. Since resident is requiring frequent doses of oxycodone, please consider scheduling acetaminophen 1000mg Q8 and increasing dose of oxycodone to 10mg if clinically appropriate. Thanks. Please continue to monitor for S/S of increased pain, PRN usage, constipation and respiratory depression. *2. Diabetes Mellitus II: glimepiride 1mg PO daily. Please consider ordering a hemoglobin A1c (last 5.9% 10/05/20) if clinically appropriate. Thanks. Please continue to monitor for S/S of hypoglycemia (this medication is on the BEERs list for causing hypoglycemia), blood glucose (last 95mg/dL) and hemoglobin A1c every 3 months or as clinically appropriate. Date of Note:: 09/07/21
--- NOTE | 2021-09-07 09:01 | PCA ---
WHEN I SERVED BREAKFAST CALL LIGHT WAS ON HER SIDE IN CHAIR. I REMINDED HER VERBALLY THAT CALL LIGHT WAS NEXT TO HER IN CHAIR. ENCOURAGED TO CALL US WHEN SHE HAD TO GO TO THE BATHROOM.
[2021-09-07] MEDS: Glimepiride 1 MG Tablet PO (09:06)
--- NOTE | 2021-09-07 09:09 | NURSING ---
0737 Pt called to tell him that call light was no where in reach, contacted facility about this stated w/ agitation Why the he does my not have access to her call light. This nurse went to patient room to check and ensure patient safety and where call light was once off phone with . Call light was visibly in patient reach sitting across patient abdomen. Shown patient that call light was sitting there within reach. 0844 Upon medication pass this nurse walked past patient room, to witness patient attempting to self transfer. I called for assistance as patient is 2 assist transfer. Patient had not put cold roll packer sheet iron light at this time. Patient incontinent of bowel and bladder before transfer. Patient given call light after placed on BSC and verified that she will call us once done. 900 This nurse peaked head into patient room after knocking. Patient had self transferred back into recliner without utilizing call light. 09 While giving patient medication, patient called her and demanded to speak to the nurse, while speaking, questioned this nurse about patient care. given step by step about patient care and educated on patient noncompliance of call light and self transferring. aware of situation that occurred, questioned as to why his was incontinent, once again expressed that patient is noncompliant with call light. Patient left with call light sitting in lap at this time, Ice water filled and patient overall content at this time. Spoke with SW about situations occurring, SW advised that once comes up to unit that we need to let Deshaun know so he can speak with him.
[2021-09-07 11:06] LABS: Bedside Glucose 89 mg/dL (74-106)
[2021-09-07] MEDS: Pregabalin 75 MG Capsule PO ×2 (11:45→21:24)
--- NOTE | 2021-09-07 12:38 | NURSING ---
1200 patient transferring patient on and off bedside commode. Educated on importance of utilizing call light and not self transferring.
--- NOTE | 2021-09-07 13:40 | NURSING ---
This nurse in patient's room as part of care team meeting. This nurse was contacted by Shane (KENDY) as well as Monica (BIOSTATISTICS PROFESSOR) about concerns brought up by patient/patient's spouse and thought it may be helpful to discuss concerns. Patient/patient's spouse also considering discharge with home antibiotics. This nurse as well as care team listened to patient/patient's spouse concerns. They expressed some concern about responsiveness to call lights taking longer than desired, staff members writing on the dry erase board about when patient was assisted to void, and specifically related to transferring with hospital staff. This nurse as well as care team informed patient and spouse that it was their right to request discharge if desired. Monica informed patient of potential costs of antibiotics if electing discharge and offered additional assistance with discharge planning if that was the route that they chose. Patient and spouse elected to take all information into consideration and then formulate their plan and will notify nursing staff if they need additional assistance with discharge planning or would elect to continue with care in the TCU. Informed patient and patient's spouse that if they have any additional specific concerns about care to please let us know. Restated that our goal is to provide high quality care with dignity and respect for all of our patients and if they feel that is not being provided to please let us know so that it can be addressed. neither patient nor spouse wished to share any further or specific details surrounding care concerns. Patient's spouse did acknowledge during the conversation that this may be a product of past frustrations and that at home he is a 1:1 caregiver for the patient.
[2021-09-07 14:32] VITALS: BP 132/65; PULSE 65; RESP 16; TEMP 36.2; O2SAT 98
[2021-09-07 16:40] VITALS: PULSE 65
[2021-09-07] MEDS: Rivaroxaban 10 MG Tablet PO (16:40)
--- NOTE | 2021-09-07 16:51 | CASEMGMT ---
Social Work IDT met with patient and for care plan meeting. Prior to meeting, staff had relayed to this worker, pt/ upset with care and possibly wanting to DC. SW sent referral to [facility] for IV pricing. Received cost of $571.50/wk for the duration on treatment. Also, requested assistance/presence from covering community service organization director, Deshaun, at [facility] r/t care concerns. Discussed patient's progress in PT/OT/SN. Explained Medicare benefit. Pt is on IV ATB Q6 and Q24 through 10/02. Updated pt/ with pricing and encouraged IV teaching to to administer. Pt stated he has completed IV ATB administration multiple times before and has no issues with completing. and pt did express care concerns. SW and Ledger Clerk validated feelings, provided supportive listening, and offered interventions to assist in improvement. SW offered to return later to get decision on continued stay or DC plans. Returned to room - pt and both agreeable to give it a few more days. SW offered ongoing support and assistance during stay. SW to continue to follow. Monica Curtis, DRAPERY CUTTER MACHINE CIRCUIT DESIGN ENGINEER
[2021-09-07 17:05] LABS: Bedside Glucose 65 mg/dL (74-106)
--- NOTE | 2021-09-07 18:14 | NURSING ---
Dressing changed to Right knee due to drainage noted. Patients sutures are stretched and looks like one may not be intact. Cleansed with NS and steri strips applied on both sides of small hole. Silver mepilex then applied. Patient tolerated overall pretty well.
[2021-09-07] MEDS: Atorvastatin Calcium 40 MG Tablet PO (21:24)
[2021-09-07] MEDS: ALPRAZolam 0.5 MG Tablet 1 MG PO (21:24)
[2021-09-07] MEDS: Acetaminophen 500 MG Tablet 1000 MG PO (21:25)
[2021-09-07] MEDS: MELATONIN 3 MG TABLET 6 MG PO (21:25)
--- NOTE | 2021-09-07 21:30 | NURSING ---
2129 - Pt's still here, encouraged a couple of times to go home and get rest. Pt's exited unit around 2229.
--- NOTE | 2021-09-07 23:24 | NURSING ---
Patient c/o itching at proximal and distal aspects of dressing. Adhesive edges pulled back and dressing secured with paper tape. Will continue to monitor.
[2021-09-08] MEDS: 0.9% Saline Lock 10 ML Syringe IV ×4 (00:05→22:07)
--- NOTE | 2021-09-08 04:59 | NURSING ---
When hanging 2200 dose of IV ATB it was noted that the last dose did not run appropriately and was not administered. RN, pharmacy and physician updated.
[2021-09-08] MEDS: Lisinopril 20 MG Tablet PO (05:24)
[2021-09-08] MEDS: Pantoprazole Sodium 40 MG Tablet PO (05:24)
[2021-09-08] MEDS: DULoxetine Hcl 60 MG Capsule PO (05:24)
[2021-09-08] MEDS: ALPRAZolam 0.5 MG Tablet PO (05:24)
[2021-09-08] MEDS: Menthol/Lanolin/Calamine/Znox 113 GM Tube 1 APPLIC TOPICAL ×2 (05:25→18:23)
[2021-09-08 05:30] VITALS: BP 156/72; PULSE 65
[2021-09-08] MEDS: Metoprolol Tartrate 25 MG Tablet PO ×2 (05:30→18:22)
[2021-09-08] MEDS: oxyCODONE 5 MG Tablet PO ×3 (06:13→18:30)
[2021-09-08 06:31] LABS: Bedside Glucose 97 mg/dL (74-106)
[2021-09-08] MEDS: Acetaminophen 500 MG Tablet 1000 MG PO ×2 (08:51→18:29)
[2021-09-08] MEDS: Glimepiride 1 MG Tablet PO (08:52)
--- NOTE | 2021-09-08 09:09 | NURSING ---
Spoke with dr zacarias am about Omnipen dose, said to continue with administration and medication order as written.
--- NOTE | 2021-09-08 09:55 | CASEMGMT ---
Social Work BIMS and PHQ-9 completed for MDS assessment. present in room. Inquired to pt and how things were going. stated well she doesn't remember yesterday's meeting at all. appeared to have further insight into inaccurate events that previously occurred, according to pt. Offered ongoing assistance with care needs and discharge planning. Monica Curtis, [employer] AIDE
--- NOTE | 2021-09-08 13:11 | MDS.RN ---
Resident resting in bed, eyes closed, did not awaken for pain assessment, staff assessment for pain completed.
[2021-09-08] MEDS: Pregabalin 75 MG Capsule PO ×2 (13:59→22:11)
[2021-09-08 14:36] VITALS: BP 159/67; PULSE 65; RESP 16; TEMP 36.6; O2SAT 95
--- NOTE | 2021-09-08 15:16 | CHAPLAIN ---
Type of Pastoral Visit _x__ Initial Visit ___ Follow-up Visit ___ On-call Visit ___ General Patient Visit ___ Spiritual Assessment ___ Family Conference ___ Bereavement ___ Rapid Response ___ Code Blue ___ Other (describe below) Pastoral Care Referral From _x__ Patient ___ Family ___ Nurse ___ Physician ___ Distillery Manager ___ Rib Trim Separator ___ Other (describe below) Sacrament/Intervention _x__ Active listening ___ Anointing ___ Alevism ___ Bereavement ___ Communion ___ Karrie exploration ___ ___ Life review ___ Prayer ___ Reconciliation ___ Sacrament of Sick ___ Supportive presence ___ Wedding ___ Other (describe below) Pastoral Comments several times this week have tried to make a visit; pt has been either out of room or in activity area; sat with patient and her spouse yesterday and today during activity time and gave general support; pt was asked about specific needs or concerns; pt states that she is better and has no particular needs at this time;
--- NOTE | 2021-09-08 15:21 | NURSING ---
Tool Room Machinist Note: Interview and Section F of MDS complete.
--- NOTE | 2021-09-08 16:07 | NURSING ---
Notified patient and of staff member testing positive for COVID
[2021-09-08 18:22] VITALS: BP 159/67; PULSE 65
[2021-09-08] MEDS: Rivaroxaban 10 MG Tablet PO (18:23)
--- NOTE | 2021-09-08 18:53 | NURSING ---
DRESSING CHANGE COMPLETED ON RIGHT LOWER KNEE
[2021-09-08 22:06] VITALS: PULSE 67; RESP 16; O2SAT 95
[2021-09-08] MEDS: MELATONIN 3 MG TABLET 6 MG PO (22:11)
[2021-09-08] MEDS: ALPRAZolam 0.5 MG Tablet 1 MG PO (22:11)
[2021-09-08] MEDS: Atorvastatin Calcium 40 MG Tablet PO (22:12)
[2021-09-09] MEDS: oxyCODONE 5 MG Tablet PO ×3 (02:23→20:06)
[2021-09-09] MEDS: Acetaminophen 500 MG Tablet 1000 MG PO ×2 (02:24→15:52)
[2021-09-09 05:42] LABS: Absolute Lymphocyte Count 1.98 X10^3/uL (0.83-4.51); Absolute Neutrophil Count 2.9 X10^3/uL (2.0-7.7); Basophil% 1.7 % (0-1); Eosinophil# 0.41 X10^3/uL; Eosinophils% 6.9 % (0-5); Hematocrit 25.6 % (37-47); Hemoglobin 7.7 g/dL (12.0-15.0); Lymphocyte # 1.98 X10^3/ul (0.83-4.51); Lymphocyte % 33.5 % (19-41); Mean Corp Hgb Conc 30.1 g/dL (32-36); Mean Corpuscular Hgb 26.1 pg (27.0-32.0); Mean Corpuscular Volume 86.8 fL (81-99); Mean Platelet Vol. 9.7 fl (6.2-12.0); Monocyte# 0.55 X10^3/uL; Monocyte% 9.3 % (0-10); NRBC Flagged by Analyzer 0 % (0-5); Neutrophil # 2.86 X10^3/uL (2.7-7.7); Neutrophil % 48.4 % (47-70); Platelet Count 328 K/mm3 (150-450); RBC Distribution Width CV 15.8 % (11.6-14.6); RBC Distribution Width SD 50.4 fl (35.1-43.9); Red Blood Count 2.95 M/mm3 (4.2-5.4); White Blood Count 5.9 K/mm3 (4.4-11.0)
[2021-09-09] MEDS: 0.9% Saline Lock 10 ML Syringe IV ×3 (05:48→23:49)
[2021-09-09 05:56] VITALS: BP 119/46; PULSE 63
[2021-09-09 06:05] LABS: Anion Gap 5 (5-15); BUN 19 mg/dL (7-18); Calcium,Total 9.1 mg/dL (8.5-10.1); Chloride 110 mmol/L (98-107); EST Glomerular Filtration Rate 88 mL/min (>60); Est Glom Filt Rate - Afr Amer 106 mL/min (>60); Estimated Creatinine Clearance 43.18 ml/min; Glucose 101 mg/dL (74-106); Potassium 3.9 mmol/L (3.5-5.1); Sodium Level 141 mmol/L (136-145)
[2021-09-09 06:21] LABS: Bedside Glucose 98 mg/dL (74-106)
[2021-09-09 06:36] LABS: Bedside Glucose 88 mg/dL (74-106)
[2021-09-09 07:55] VITALS: PULSE 65
[2021-09-09] MEDS: Metoprolol Tartrate 25 MG Tablet PO ×2 (07:55→17:52)
[2021-09-09] MEDS: DULoxetine Hcl 60 MG Capsule PO (07:55)
[2021-09-09] MEDS: Pantoprazole Sodium 40 MG Tablet PO (07:56)
[2021-09-09] MEDS: Lisinopril 20 MG Tablet PO (07:56)
[2021-09-09] MEDS: Glimepiride 1 MG Tablet PO (07:56)
[2021-09-09] MEDS: Menthol/Lanolin/Calamine/Znox 113 GM Tube 1 APPLIC TOPICAL ×2 (08:12→18:00)
[2021-09-09] MEDS: Tuberculin,Purif.prot.deriv. 50 TU/ML Vial 0.1 ML ID (10:36)
[2021-09-09] MEDS: Pregabalin 75 MG Capsule PO ×2 (12:47→21:29)
[2021-09-09 16:00] VITALS: BP 157/51; PULSE 64; RESP 18; TEMP 35.7; O2SAT 100
[2021-09-09] MEDS: Rivaroxaban 10 MG Tablet PO (17:51)
[2021-09-09 17:52] VITALS: PULSE 65
[2021-09-09] MEDS: Atorvastatin Calcium 40 MG Tablet PO (21:29)
[2021-09-09] MEDS: ALPRAZolam 0.5 MG Tablet 1 MG PO (21:29)
[2021-09-09 21:30] VITALS: PULSE 86; RESP 16; O2SAT 95
[2021-09-09] MEDS: MELATONIN 3 MG TABLET 6 MG PO (21:30)
[2021-09-10] MEDS: oxyCODONE 5 MG Tablet PO ×4 (03:18→23:33)
[2021-09-10] MEDS: 0.9% Saline Lock 10 ML Syringe IV ×3 (05:02→18:11)
[2021-09-10] MEDS: ALPRAZolam 0.5 MG Tablet PO (06:00)
[2021-09-10] MEDS: Pantoprazole Sodium 40 MG Tablet PO (06:00)
[2021-09-10] MEDS: DULoxetine Hcl 60 MG Capsule PO (06:00)
[2021-09-10] MEDS: Menthol/Lanolin/Calamine/Znox 113 GM Tube 1 APPLIC TOPICAL ×2 (06:04→18:09)
[2021-09-10 06:05] VITALS: BP 163/68; PULSE 75
[2021-09-10] MEDS: Metoprolol Tartrate 25 MG Tablet PO ×2 (06:05→18:09)
[2021-09-10] MEDS: Lisinopril 20 MG Tablet PO (06:05)
[2021-09-10 06:25] LABS: Bedside Glucose 92 mg/dL (74-106)
--- NOTE | 2021-09-10 09:34 | NURSING ---
Charge nurse made this nurse aware that patient is refusing to let lab draw blood. Two attempts were made and patient still refuses. Explained importance of the draw by this nurse and continues to refuse. Patient also refusing to eat. This nurse held Amaryl per patient request. Blood glucose 92.
[2021-09-10] MEDS: Acetaminophen 500 MG Tablet 1000 MG PO ×2 (10:51→18:04)
[2021-09-10] MEDS: Pregabalin 75 MG Capsule PO ×2 (11:07→20:09)
[2021-09-10 11:12] VITALS: PULSE 60; RESP 16; O2SAT 93
--- NOTE | 2021-09-10 12:05 | NURSING ---
Patient left floor for GABRIEL. Expected return is 1800.
[2021-09-10 16:58] VITALS: BP 148/71; PULSE 60; RESP 18; TEMP 36.7; O2SAT 93
[2021-09-10 18:09] VITALS: BP 148/71; PULSE 60
[2021-09-10] MEDS: Rivaroxaban 10 MG Tablet PO (18:09)
[2021-09-10] MEDS: Atorvastatin Calcium 40 MG Tablet PO (20:09)
[2021-09-10] MEDS: MELATONIN 3 MG TABLET 6 MG PO (20:09)
[2021-09-10] MEDS: ALPRAZolam 0.5 MG Tablet 1 MG PO (20:10)
[2021-09-11] MEDS: cycloBENZAPRine HCl 5 MG TABLET PO (00:06)
[2021-09-11 06:05] VITALS: BP 129/60; PULSE 65
[2021-09-11] MEDS: Lisinopril 20 MG Tablet PO (06:05)
[2021-09-11] MEDS: Metoprolol Tartrate 25 MG Tablet PO ×2 (06:05→17:48)
[2021-09-11] MEDS: Pantoprazole Sodium 40 MG Tablet PO (06:05)
[2021-09-11] MEDS: DULoxetine Hcl 60 MG Capsule PO (06:05)
[2021-09-11] MEDS: Menthol/Lanolin/Calamine/Znox 113 GM Tube 1 APPLIC TOPICAL ×2 (06:07→17:49)
[2021-09-11] MEDS: ALPRAZolam 0.5 MG Tablet PO (06:11)
[2021-09-11 06:31] LABS: Bedside Glucose 92 mg/dL (74-106)
--- NOTE | 2021-09-11 09:29 | NURSING ---
This nurse and channel man went into room to provide morning care. pt refused, encouragement and education provided on the importance of hygiene. pt continued to refuse.
[2021-09-11] MEDS: Glimepiride 1 MG Tablet PO (10:34)
[2021-09-11] MEDS: 0.9% Saline Lock 10 ML Syringe IV (11:03)
[2021-09-11] MEDS: Acetaminophen 500 MG Tablet 1000 MG PO (11:11)
[2021-09-11] MEDS: oxyCODONE 5 MG Tablet PO ×2 (11:11→21:00)
--- NOTE | 2021-09-11 11:14 | NURSING ---
Amaryl 1mg given late due to patient having a late breakfast. Family at bedside.
[2021-09-11] MEDS: Pregabalin 75 MG Capsule PO ×2 (11:19→21:00)
[2021-09-11 17:48] VITALS: BP 126/64; PULSE 72
[2021-09-11] MEDS: Rivaroxaban 10 MG Tablet PO (17:49)
[2021-09-11 18:55] VITALS: BP 126/64; PULSE 72; RESP 14; TEMP 36.4; O2SAT 95
[2021-09-11] MEDS: Atorvastatin Calcium 40 MG Tablet PO (21:00)
[2021-09-11] MEDS: MELATONIN 3 MG TABLET 6 MG PO (21:00)
[2021-09-11] MEDS: ALPRAZolam 0.5 MG Tablet 1 MG PO (21:01)
[2021-09-11 23:28] VITALS: PULSE 68; RESP 16; O2SAT 93
[2021-09-12] MEDS: oxyCODONE 5 MG Tablet PO ×2 (01:09→11:07)
[2021-09-12] MEDS: cycloBENZAPRine HCl 5 MG TABLET PO (01:45)
[2021-09-12] MEDS: ALPRAZolam 0.5 MG Tablet PO (05:36)
[2021-09-12] MEDS: Menthol/Lanolin/Calamine/Znox 113 GM Tube 1 APPLIC TOPICAL ×2 (06:16→18:21)
[2021-09-12] MEDS: DULoxetine Hcl 60 MG Capsule PO (06:27)
[2021-09-12] MEDS: Lisinopril 20 MG Tablet PO (06:27)
[2021-09-12] MEDS: Pantoprazole Sodium 40 MG Tablet PO (06:27)
[2021-09-12 06:29] VITALS: BP 134/64; PULSE 70
[2021-09-12] MEDS: Metoprolol Tartrate 25 MG Tablet PO ×2 (06:29→17:54)
[2021-09-12 06:31] LABS: Bedside Glucose 97 mg/dL (74-106)
[2021-09-12] MEDS: Glimepiride 1 MG Tablet PO (08:23)
[2021-09-12] MEDS: Acetaminophen 500 MG Tablet 1000 MG PO (11:07)
[2021-09-12] MEDS: Pregabalin 75 MG Capsule PO ×2 (11:07→20:52)
[2021-09-12 14:32] VITALS: BP 149/70; PULSE 58; RESP 16; TEMP 36.1; O2SAT 100
--- NOTE | 2021-09-12 15:36 | PCA ---
patients spouse came at 3:35pm and asked why when he leaves for 1 1/2 hours and comes back is patient soaking wet? I said I don't know, she hasn't rang to go to the bathroom. He said that she said that she rang awhile ago. The call light hadn't gone off that I was aware of. He looked annoyed, but didn't say much else. The nurse was standing here and heard him also. The patient rang approx. 6 times between wakeup and lunch time today to go to the bathroom. I did her vital signs at approx. 2:30pm and she mumbled answers to questions I asked. She appeared to be fast asleep. Spouse was not in room at that time.
[2021-09-12 17:54] VITALS: PULSE 69
[2021-09-12] MEDS: Rivaroxaban 10 MG Tablet PO (17:55)
[2021-09-12] MEDS: Atorvastatin Calcium 40 MG Tablet PO (20:52)
[2021-09-12] MEDS: ALPRAZolam 0.5 MG Tablet 1 MG PO (20:52)
[2021-09-12] MEDS: MELATONIN 3 MG TABLET 6 MG PO (20:53)
[2021-09-13] MEDS: 0.9% Saline Lock 10 ML Syringe IV ×2 (00:06→05:45)
[2021-09-13] MEDS: cycloBENZAPRine HCl 5 MG TABLET PO (00:24)
[2021-09-13] MEDS: oxyCODONE 5 MG Tablet PO ×3 (00:27→19:34)
[2021-09-13] MEDS: Acetaminophen 500 MG Tablet 1000 MG PO ×2 (01:15→14:27)
[2021-09-13 05:42] VITALS: BP 125/65; PULSE 66; O2SAT 95
[2021-09-13 06:25] LABS: Bedside Glucose 106 mg/dL (74-106)
[2021-09-13] MEDS: Menthol/Lanolin/Calamine/Znox 113 GM Tube 1 APPLIC TOPICAL ×2 (06:44→21:31)
[2021-09-13 06:57] VITALS: PULSE 66
[2021-09-13] MEDS: Metoprolol Tartrate 25 MG Tablet PO ×2 (06:57→18:19)
[2021-09-13] MEDS: Lisinopril 20 MG Tablet PO (06:58)
[2021-09-13] MEDS: DULoxetine Hcl 60 MG Capsule PO (06:58)
[2021-09-13] MEDS: Pantoprazole Sodium 40 MG Tablet PO (06:58)
[2021-09-13] MEDS: Glimepiride 1 MG Tablet PO (08:09)
[2021-09-13] MEDS: Pregabalin 75 MG Capsule PO ×2 (11:44→21:31)
[2021-09-13 13:57] VITALS: BP 127/63; PULSE 60; RESP 18; TEMP 36.2; O2SAT 95
[2021-09-13 18:19] VITALS: PULSE 62
[2021-09-13] MEDS: Rivaroxaban 10 MG Tablet PO (18:19)
[2021-09-13] MEDS: Atorvastatin Calcium 40 MG Tablet PO (21:31)
[2021-09-13] MEDS: MELATONIN 3 MG TABLET 6 MG PO (21:31)
[2021-09-13] MEDS: ALPRAZolam 0.5 MG Tablet 1 MG PO (21:32)
[2021-09-14] MEDS: oxyCODONE 5 MG Tablet PO (00:25)
[2021-09-14] MEDS: Menthol/Lanolin/Calamine/Znox 113 GM Tube 1 APPLIC TOPICAL ×2 (05:11→17:48)
[2021-09-14] MEDS: 0.9% Saline Lock 10 ML Syringe IV (05:11)
[2021-09-14 05:21] VITALS: BP 139/62; PULSE 62; RESP 14
[2021-09-14 06:21] LABS: Bedside Glucose 80 mg/dL (74-106)
[2021-09-14] MEDS: DULoxetine Hcl 60 MG Capsule PO (08:06)
[2021-09-14 08:07] VITALS: PULSE 66
[2021-09-14] MEDS: Metoprolol Tartrate 25 MG Tablet PO ×2 (08:07→17:49)
[2021-09-14] MEDS: Pantoprazole Sodium 40 MG Tablet PO (08:07)
[2021-09-14] MEDS: Lisinopril 20 MG Tablet PO (08:08)
[2021-09-14] MEDS: Glimepiride 1 MG Tablet PO (08:08)
[2021-09-14 09:50] VITALS: PULSE 68
[2021-09-14] MEDS: Pregabalin 75 MG Capsule PO ×2 (11:20→21:39)
[2021-09-14 12:21] VITALS: BP 132/64; PULSE 64; RESP 16; TEMP 36.3; O2SAT 97
--- NOTE | 2021-09-14 13:25 | MDS.RN ---
Information for the mds was obtained from review of the clinical record, interview of resident, staff, and direct observation of resident's care.
[2021-09-14] MEDS: Rivaroxaban 10 MG Tablet PO (17:48)
[2021-09-14 17:49] VITALS: PULSE 88
[2021-09-14] MEDS: ALPRAZolam 0.5 MG Tablet 1 MG PO (21:39)
[2021-09-14] MEDS: MELATONIN 3 MG TABLET 6 MG PO (21:40)
[2021-09-14] MEDS: Atorvastatin Calcium 40 MG Tablet PO (21:40)
[2021-09-14] MEDS: cycloBENZAPRine HCl 5 MG TABLET PO (23:12)
[2021-09-14] MEDS: Acetaminophen 500 MG Tablet 1000 MG PO (23:12)
[2021-09-15] MEDS: oxyCODONE 5 MG Tablet PO ×3 (00:53→15:44)
--- NOTE | 2021-09-15 01:20 | PCA ---
patient has been calling for industrial roof plumber or nurse for things out of the ordinary tonight. asking staff to get things out of her kitchen and livingroom then asking for shoes and her pills out of the cupboard. patient has not been asleep yet and keeps drinking water, lots of water has had 4 cups since 10pm
[2021-09-15] MEDS: 0.9% Saline Lock 10 ML Syringe IV ×3 (04:56→17:45)
[2021-09-15 06:26] LABS: Bedside Glucose 89 mg/dL (74-106)
[2021-09-15 09:33] VITALS: BP 88/56; PULSE 67
--- NOTE | 2021-09-15 09:36 | NURSING ---
Patient difficult to wake up, refusing morning medication and morning care . When this nurse tried to give morning medication and check blood pressure she said she wanted to be left alone. BP 88/56. Patient also refuses to eat at this time. Amaryl 1mg held due to not eating. Will continue to monitor.
[2021-09-15] MEDS: Menthol/Lanolin/Calamine/Znox 113 GM Tube 1 APPLIC TOPICAL ×2 (11:47→17:39)
[2021-09-15] MEDS: Pregabalin 75 MG Capsule PO ×2 (11:49→21:56)
[2021-09-15] MEDS: DULoxetine Hcl 60 MG Capsule PO (11:49)
[2021-09-15] MEDS: Pantoprazole Sodium 40 MG Tablet PO (11:49)
[2021-09-15 16:00] VITALS: BP 134/66; PULSE 67; RESP 14; TEMP 36.6
[2021-09-15] MEDS: Rivaroxaban 10 MG Tablet PO (16:24)
[2021-09-15] MEDS: Acetaminophen 500 MG Tablet 1000 MG PO (16:24)
[2021-09-15 17:39] VITALS: BP 134/66; PULSE 84
[2021-09-15] MEDS: Metoprolol Tartrate 25 MG Tablet PO (17:39)
[2021-09-15] MEDS: ALPRAZolam 0.5 MG Tablet 1 MG PO (21:56)
[2021-09-15] MEDS: Atorvastatin Calcium 40 MG Tablet PO (21:57)
[2021-09-15 23:45] VITALS: PULSE 69; RESP 16
[2021-09-16] MEDS: cycloBENZAPRine HCl 5 MG TABLET PO (00:31)
[2021-09-16] MEDS: oxyCODONE 5 MG Tablet PO ×4 (00:31→20:07)
[2021-09-16] MEDS: 0.9% Saline Lock 10 ML Syringe IV (00:32)
[2021-09-16] MEDS: Acetaminophen 500 MG Tablet 1000 MG PO ×2 (02:28→10:38)
[2021-09-16 06:25] LABS: Bedside Glucose 92 mg/dL (74-106)
[2021-09-16 07:01] LABS: Absolute Lymphocyte Count 2.08 X10^3/uL (0.83-4.51); Absolute Neutrophil Count 4.4 X10^3/uL (2.0-7.7); Basophil# 0.09 X10^3/uL; Basophil% 1.2 % (0-1); Eosinophil# 0.31 X10^3/uL; Hematocrit 26.7 % (37-47); Hemoglobin 7.9 g/dL (12.0-15.0); Lymphocyte # 2.08 X10^3/ul (0.83-4.51); Mean Corp Hgb Conc 29.6 g/dL (32-36); Mean Corpuscular Hgb 24.7 pg (27.0-32.0); Mean Corpuscular Volume 83.4 fL (81-99); Mean Platelet Vol. 9.7 fl (6.2-12.0); Monocyte# 0.78 X10^3/uL; Monocyte% 10.1 % (0-10); NRBC Flagged by Analyzer 0 % (0-5); Neutrophil # 4.42 X10^3/uL (2.7-7.7); Neutrophil % 57.4 % (47-70); Platelet Count 349 K/mm3 (150-450); RBC Distribution Width CV 16.3 % (11.6-14.6); RBC Distribution Width SD 49.6 fl (35.1-43.9); White Blood Count 7.7 K/mm3 (4.4-11.0)
[2021-09-16 07:30] LABS: Anion Gap 6 (5-15); BUN 16 mg/dL (7-18); BUN/Creat Ratio 21.8 RATIO (10-20); Calcium,Total 8.8 mg/dL (8.5-10.1); Chloride 110 mmol/L (98-107); Creatinine, Serum 0.74 mg/dL (0.55-1.02); EST Glomerular Filtration Rate 84 mL/min (>60); Est Glom Filt Rate - Afr Amer 101 mL/min (>60); Estimated Creatinine Clearance 43.18 ml/min; Glucose 91 mg/dL (74-106); Potassium 3.5 mmol/L (3.5-5.1); Sodium Level 141 mmol/L (136-145)
[2021-09-16] MEDS: Glimepiride 1 MG Tablet PO (08:36)
[2021-09-16] MEDS: Lisinopril 20 MG Tablet PO (08:36)
[2021-09-16] MEDS: Menthol/Lanolin/Calamine/Znox 113 GM Tube 1 APPLIC TOPICAL ×2 (08:37→17:56)
[2021-09-16] MEDS: DULoxetine Hcl 60 MG Capsule PO (08:38)
[2021-09-16] MEDS: Pantoprazole Sodium 40 MG Tablet PO (08:38)
[2021-09-16] MEDS: ALPRAZolam 0.5 MG Tablet PO (08:41)
[2021-09-16 08:45] VITALS: PULSE 58
[2021-09-16 09:42] VITALS: PULSE 62
[2021-09-16] MEDS: Pregabalin 75 MG Capsule PO ×2 (11:34→21:19)
[2021-09-16 15:51] VITALS: BP 123/54; PULSE 59; RESP 16; TEMP 36.1; O2SAT 91
[2021-09-16] MEDS: Rivaroxaban 10 MG Tablet PO (17:56)
[2021-09-16 17:58] VITALS: PULSE 72
[2021-09-16] MEDS: Metoprolol Tartrate 25 MG Tablet PO (17:58)
[2021-09-16] MEDS: ALPRAZolam 0.5 MG Tablet 1 MG PO (21:19)
[2021-09-16] MEDS: Atorvastatin Calcium 40 MG Tablet PO (21:20)
[2021-09-17] MEDS: 0.9% Saline Lock 10 ML Syringe IV ×2 (00:31→04:57)
[2021-09-17] MEDS: cycloBENZAPRine HCl 5 MG TABLET PO (04:49)
[2021-09-17] MEDS: Acetaminophen 500 MG Tablet 1000 MG PO ×2 (04:49→17:11)
[2021-09-17 06:25] LABS: Bedside Glucose 120 mg/dL (74-106)
[2021-09-17 08:44] VITALS: BP 109/67; PULSE 60
[2021-09-17] MEDS: DULoxetine Hcl 60 MG Capsule PO (08:46)
[2021-09-17] MEDS: Glimepiride 1 MG Tablet PO (08:46)
[2021-09-17] MEDS: Lisinopril 20 MG Tablet PO (08:46)
[2021-09-17] MEDS: oxyCODONE 5 MG Tablet PO ×3 (08:46→21:42)
[2021-09-17] MEDS: Pantoprazole Sodium 40 MG Tablet PO (08:46)
[2021-09-17] MEDS: ALPRAZolam 0.5 MG Tablet PO (08:46)
[2021-09-17] MEDS: Menthol/Lanolin/Calamine/Znox 113 GM Tube 1 APPLIC TOPICAL ×2 (08:47→17:16)
[2021-09-17] MEDS: Pregabalin 75 MG Capsule PO ×2 (11:52→21:42)
[2021-09-17 12:00] VITALS: BP 154/62; PULSE 66
[2021-09-17] MEDS: Metoprolol Tartrate 25 MG Tablet PO ×2 (12:00→17:08)
[2021-09-17 17:06] VITALS: BP 146/62; PULSE 65; RESP 16; TEMP 36.1; O2SAT 98
[2021-09-17 17:08] VITALS: BP 146/62; PULSE 65
[2021-09-17] MEDS: Rivaroxaban 10 MG Tablet PO (17:08)
[2021-09-17] MEDS: ALPRAZolam 0.5 MG Tablet 1 MG PO (21:41)
[2021-09-17] MEDS: Atorvastatin Calcium 40 MG Tablet PO (21:43)
[2021-09-18] MEDS: oxyCODONE 5 MG Tablet PO ×3 (01:52→23:33)
[2021-09-18] MEDS: Acetaminophen 500 MG Tablet 1000 MG PO (01:52)
[2021-09-18 06:31] LABS: Bedside Glucose 104 mg/dL (74-106)
[2021-09-18 08:46] VITALS: BP 127/73; PULSE 71
[2021-09-18] MEDS: Lisinopril 20 MG Tablet PO (08:46)
[2021-09-18] MEDS: Metoprolol Tartrate 25 MG Tablet PO ×2 (08:46→18:17)
[2021-09-18] MEDS: Pantoprazole Sodium 40 MG Tablet PO (08:46)
[2021-09-18] MEDS: ALPRAZolam 0.5 MG Tablet PO (08:47)
[2021-09-18] MEDS: DULoxetine Hcl 60 MG Capsule PO (08:47)
[2021-09-18] MEDS: Glimepiride 1 MG Tablet PO (08:48)
[2021-09-18] MEDS: Menthol/Lanolin/Calamine/Znox 113 GM Tube 1 APPLIC TOPICAL ×2 (08:52→18:18)
[2021-09-18 08:55] VITALS: PULSE 71; RESP 16; O2SAT 92
[2021-09-18] MEDS: Pregabalin 75 MG Capsule PO ×2 (11:55→21:47)
[2021-09-18 15:04] VITALS: BP 107/72; PULSE 68; RESP 20; TEMP 36.3; O2SAT 96
[2021-09-18 18:17] VITALS: BP 107/72; PULSE 68
[2021-09-18] MEDS: Rivaroxaban 10 MG Tablet PO (18:17)
[2021-09-18] MEDS: Atorvastatin Calcium 40 MG Tablet PO (21:46)
[2021-09-18] MEDS: ALPRAZolam 0.5 MG Tablet 1 MG PO (21:47)
--- NOTE | 2021-09-18 23:15 | NURSING ---
Staff attempting to assist pt to the bathroom and insists purewick to be left in place while toileting. Informed pt purewick needs to be removed when toileted so device does not fall into the toilet. This nurse took pt to the bathroom. Passed a large amount of brown, loose stool. Pericare completed. Assisted back to bed. New pullup applied and purewick put back in place. Connected to suction. Call light w/ in reach. Will continue to monitor.
[2021-09-18] MEDS: cycloBENZAPRine HCl 5 MG TABLET PO (23:32)
[2021-09-19] MEDS: Acetaminophen 500 MG Tablet 1000 MG PO (05:11)
[2021-09-19 06:30] LABS: Bedside Glucose 110 mg/dL (74-106)
[2021-09-19] MEDS: Glimepiride 1 MG Tablet PO (07:52)
[2021-09-19 07:53] VITALS: PULSE 58
[2021-09-19] MEDS: DULoxetine Hcl 60 MG Capsule PO (07:53)
[2021-09-19] MEDS: Lisinopril 20 MG Tablet PO (07:54)
[2021-09-19] MEDS: Pantoprazole Sodium 40 MG Tablet PO (07:57)
[2021-09-19] MEDS: ALPRAZolam 0.5 MG Tablet PO (07:58)
[2021-09-19] MEDS: Menthol/Lanolin/Calamine/Znox 113 GM Tube 1 APPLIC TOPICAL ×2 (08:00→17:25)
[2021-09-19] MEDS: Pregabalin 75 MG Capsule PO ×2 (11:16→22:00)
[2021-09-19] MEDS: oxyCODONE 5 MG Tablet PO ×2 (13:04→23:45)
[2021-09-19 13:43] VITALS: BP 121/62; PULSE 69; RESP 18; TEMP 36.3; O2SAT 98
[2021-09-19 17:24] VITALS: PULSE 80
[2021-09-19] MEDS: Metoprolol Tartrate 25 MG Tablet PO (17:24)
[2021-09-19] MEDS: Rivaroxaban 10 MG Tablet PO (17:25)
[2021-09-19 18:16] LABS: Erythrocyte Sedimentation Rate 39 mm/hr (0-30)
[2021-09-19] MEDS: ALPRAZolam 0.5 MG Tablet 1 MG PO (21:59)
[2021-09-19] MEDS: Atorvastatin Calcium 40 MG Tablet PO (22:00)
[2021-09-19] MEDS: cycloBENZAPRine HCl 5 MG TABLET PO (23:45)
[2021-09-20] MEDS: Acetaminophen 500 MG Tablet 1000 MG PO ×2 (03:00→23:26)
[2021-09-20 06:46] LABS: Bedside Glucose 79 mg/dL (74-106)
[2021-09-20] MEDS: Pantoprazole Sodium 40 MG Tablet PO (08:00)
[2021-09-20] MEDS: ALPRAZolam 0.5 MG Tablet PO (08:00)
[2021-09-20] MEDS: DULoxetine Hcl 60 MG Capsule PO (08:00)
[2021-09-20] MEDS: Lisinopril 20 MG Tablet PO (08:00)
[2021-09-20] MEDS: Glimepiride 1 MG Tablet PO (08:00)
[2021-09-20 08:01] VITALS: PULSE 68
[2021-09-20] MEDS: Metoprolol Tartrate 25 MG Tablet PO ×2 (08:01→17:02)
[2021-09-20] MEDS: Menthol/Lanolin/Calamine/Znox 113 GM Tube 1 APPLIC TOPICAL ×2 (08:01→17:03)
[2021-09-20] MEDS: oxyCODONE 5 MG Tablet PO ×2 (11:21→23:23)
[2021-09-20] MEDS: Pregabalin 75 MG Capsule PO ×2 (12:44→21:51)
[2021-09-20] MEDS: 0.9% Saline Lock 10 ML Syringe IV ×2 (12:45→17:09)
[2021-09-20 14:48] VITALS: BP 135/70; PULSE 65; RESP 20; TEMP 35.8; O2SAT 94
--- NOTE | 2021-09-20 15:42 | CASEMGMT ---
Addendum entered by Monica Curtis 09/21/21 13:52: Referral made to [facility] and [facility]. [facility] to deliver ATB tomorrow for to administer when they return home from appt. Plan: DC home with 09/23, [facility] IV ATB, [facility] PT/OT/SN Original Note: Social Work presented to SW requesting pt DC home prior to f/u appt on 09/23, and he is aware of paying privately for remainder of IV ATB. IDT agreeable. requesting to restart with [facility] PT/OT/ST/SN. SW to make referral and to refer to [facility] for ATB. questioned how 09/23 IV ATB will be administered since it is scheduled for noon and appt is at 11:[address] home is about 1.5 hrs. SW to discuss with nursing to problem solve. SW to update . requesting DC date be a surprise to pt. Updated staff. SW to continue to follow. Monica Curtis ,ONLINE TRADER EDUCATIONAL ASSISTANT
[2021-09-20 17:02] VITALS: PULSE 74
[2021-09-20] MEDS: Rivaroxaban 10 MG Tablet PO (17:02)
[2021-09-20] MEDS: ALPRAZolam 0.5 MG Tablet 1 MG PO (21:50)
[2021-09-20] MEDS: Atorvastatin Calcium 40 MG Tablet PO (21:52)
[2021-09-20] MEDS: cycloBENZAPRine HCl 5 MG TABLET PO (23:20)
[2021-09-20 23:45] VITALS: PULSE 70; RESP 18; O2SAT 96
[2021-09-21 06:31] LABS: Bedside Glucose 83 mg/dL (74-106)
--- NOTE | 2021-09-21 08:10 | NURSING ---
Helped patient back to bed, replaced purick. Pt stated that I put it in wrong; that it wasnt inside of her far enogh. I explained that the purick is not to be placed internally. She said that it wouldnt catch her urine if it wasnt put inside. Educated patient on anatomy and where urine comes out. Pt stated she would try it. A little later she called and told the male aide that it was wrong and asked him to place it inside. He also told her that was not the correct placement. She then asked for the package and wanted to read it for herself. Pt finally seemed satisfied that it was properly placed.
[2021-09-21 08:44] VITALS: BP 184/94; PULSE 78
[2021-09-21] MEDS: ALPRAZolam 0.5 MG Tablet PO (08:44)
[2021-09-21] MEDS: Pantoprazole Sodium 40 MG Tablet PO (08:44)
[2021-09-21] MEDS: Lisinopril 20 MG Tablet PO (08:44)
[2021-09-21] MEDS: Glimepiride 1 MG Tablet PO (08:44)
[2021-09-21] MEDS: cycloBENZAPRine HCl 5 MG TABLET PO ×2 (08:44→17:49)
[2021-09-21] MEDS: Metoprolol Tartrate 25 MG Tablet PO ×2 (08:44→17:39)
[2021-09-21] MEDS: Menthol/Lanolin/Calamine/Znox 113 GM Tube 1 APPLIC TOPICAL ×2 (08:45→17:39)
[2021-09-21] MEDS: DULoxetine Hcl 60 MG Capsule PO (08:50)
[2021-09-21] MEDS: 0.9% Saline Lock 10 ML Syringe IV ×3 (09:17→17:49)
[2021-09-21 09:41] VITALS: PULSE 78; RESP 18
--- NOTE | 2021-09-21 10:26 | NURSING ---
pt's spouse called unit stating pt was up walking around room looking for her call light. This nurse and KENDY Weinberg entered room to find pt sitting on side of bed alone in room, with call light laying beside pt in her bed. Nurses reoriented pt to place and situation, denies needs. pt laid back down and went to sleep. Will continue to monitor.
[2021-09-21] MEDS: Pregabalin 75 MG Capsule PO ×2 (12:01→22:22)
[2021-09-21] MEDS: oxyCODONE 5 MG Tablet PO ×2 (13:12→18:38)
--- NOTE | 2021-09-21 14:22 | PN.ID_ITS ---
Physical Exam Narrative Feeling ok, some diarrhea, no fever. Wound improving. Const alert and no apparent distress Resp normal air movement and clear to auscultation bilaterally Cardio regular rate and regular rhythm GI soft to palpation, non-tender and non-distended Skin Skin Narrative: R knee incision some scabbing ID ID: Route of nutrition/ use of supplements: [] Nutritional Intake: [] IV Site: [] Vaughan Catheter: [] Assessment & Plan Assessment/Plan (1) Infection of prosthetic right knee joint: PLAN: Now s/p spacer placement 08/18/21, discharged on 6 weeks amp/erta, stop date 10/02/21. Weekly bmp, cbc, LFT, and esr. Wrote for 10 more days iv erta/amp, then followup with ortho. Will follow, d/w outpatient case manager
[2021-09-21 15:43] VITALS: BP 155/70; PULSE 63; RESP 16; TEMP 36.2; O2SAT 92
[2021-09-21 17:39] VITALS: PULSE 63
[2021-09-21] MEDS: Rivaroxaban 10 MG Tablet PO (17:39)
--- NOTE | 2021-09-21 22:06 | DS.PCM_ITS ---
Providers Date of Admission: 09/01/21 Consultations 09/01/21 19:27 Consult: Infectious Disease Routine Consulting Provider: Adebayo Salguero Reason for Consult: Right knee infection EMERGENT Consult: No MD Notified: Yes Date Notified: 09/02/21 Time Notified: 13:05 Method of Notification: Verbal Reason For Visit: R. TOTAL KNEE REVISION Diagnosis Discharge Diagnosis (1) Infection of prosthetic right knee joint: Status: Acute Code(s): T84.53XA - Infection and inflammatory reaction due to internal right knee prosthesis, initial encounter Medications at Discharge Home Medications atorvastatin 40 mg tablet 40 mg PO QHS CHOLESTEROL 01/27/16 duloxetine 60 mg capsule,delayed release 60 mg PO DAILY depression 07/05/17 polyethylene glycol 3350 17 gram oral powder packet 17 g PO DAILY PRN Constipation 04/23/19 oxycodone-acetaminophen 5 mg-325 mg tablet 1 tab PO Q6H PRN PRN Pain 04/28/19 metoprolol tartrate 25 mg tablet 25 mg PO BID heart #180 tabs 09/20/20 alprazolam 1 mg tablet 0.5 mg PO DAILY ANXIETY 03/17/21 lisinopril 20 mg tablet 20 mg PO DAILY BP 03/17/21 pregabalin 75 mg capsule 75 mg PO BID NERVE PAIN 03/17/21 acetaminophen 325 mg tablet 650 mg PO Q6H PRN Pain 09/01/21 alprazolam 1 mg tablet 1 mg PO QHS anxiety 09/01/21 ampicillin sodium 2 gram intravenous piggyback 2 g IV Q8H infection 09/01/21 aspirin 81 mg tablet 81 mg PO DAILY blood thinner 09/01/21 cyclobenzaprine 5 mg tablet 5 mg PO TID PRN muscle relaxer 09/01/21 enoxaparin 40 mg/0.4 mL subcutaneous syringe 40 mg subcut Q12H blood thinner 09/01/21 ertapenem 1 gram solution for injection (Invanz) 1 g IV Q24H infection 09/01/21 glimepiride 1 mg tablet 1 mg PO DAILY diabetes 09/01/21 melatonin 3 mg tablet 6 mg PO QHS sleep 09/01/21 pantoprazole 40 mg tablet,delayed release 40 mg PO DAILY reflux 09/01/21 sennosides 8.6 mg-docusate sodium 50 mg tablet (Stool Softener-Stimulant Laxative) 1 tab PO DAILY PRN PRN Constipation 09/01/21 acetaminophen 500 mg tablet 1,000 mg PO Q6H PRN PRN Pain Score 1-5 #0 tabs 09/21/21 ampicillin sodium 2 gram intravenous solution 2 g IV Q8H 10 days #30 ea 09/21/21 calcium carbonate 200 mg calcium (500 mg) chewable tablet 1,000 mg PO Q4H PRN PRN HEARTBURN OR INDIGESTION #0 tabs 09/21/21 ertapenem 1 gram solution for injection (Invanz) 1 g IV Q24H #10 ea 09/21/21 menthol 0.44 %-zinc oxide 20.6 % topical ointment (Calmoseptine) 1 applic topical 0800,1800 #0 grams 09/21/21 rivaroxaban 10 mg tablet (Xarelto) 10 mg PO DINNER 9 days #9 tabs 09/21/21 saliva substitute combo no.9 (Biotene Dry Mouth Oral Rinse) 15 ml mucous membrane 5X/DAY PRN Dry Mouth #0 mL 09/21/21 Hospital Course Operations - (revision right total knee arthroplasty with implant 08/18/2021) Procedures None Summary of Care Provided Minutes Spent on Discharge: 35 Hospital Course: 65 year old female with below past medical history hospitalized for revision right total knee arthroplasty with implant 08/18/2021, complicated by septic shock, encephalopathy, acute kidney injury, acute anemia, admitted to TCU with debility, here for rehabilitation, strengthening, intravenous antibiotics, prior to discharge home with . Discharge home with 09/23/2021, CSI IV antibiotic, [facility] PT/OT/SN. Physical Exam Const alert General Appearance: cooperative HEENT normocephalic Eyes PERRL and EOMs intact bilaterally Neck supple, no JVD and no carotid bruits Resp normal respiratory effort, normal air movement and clear to auscultation bilaterally Cardio regular rate and regular rhythm GI normal to inspection, nondistended, normoactive bowel sounds, non-tender and non-distended Extremity normal capillary refill General Extremity: Negative for edema Skin no rashes or lesions noted General Skin Exam: no breakdown Psych affect normal Appearance: appropriate Weight / BMI Weight Weight: 115.212 kg Body Mass Index (BMI) 46.3 ABG / Lab / Microbiology Data Result Diagrams: 09/16/21 06:50 09/16/21 06:50 Laboratory: Laboratory Results - last 24 hr 09/21/21 06:24: POC Glucose 83 Microbiology: Microbiology 09/19/21 14:17 Nasal Secretion SARS-CoV-2 Antigen (Rapid) - Final 09/12/21 12:36 Nasal Secretion SARS-CoV-2 Antigen (Rapid) - Final 09/08/21 05:30 Nasal Secretion SARS-CoV-2 Antigen (Rapid) - Final 09/02/21 10:20 Nasal Secretion SARS-CoV-2 Antigen (Rapid) - Final D/C Instructions Discharge Diet: No restrictions Discharge Activity: Return to Normal Activity, May Shower and Use Walker Weight Bearing Status: Weight bearing as tolerated Call your doctor if you observe: Fever of 101 or Higher, Inability to urinate, Inability to have a bowel movement, Shortness of breath, Dizziness, Fainting spells, Swelling in the ankles, Chest pain and Uncontrolled pain Additional Instructions: Discharge home with 09/23/2021, CSI IV antibiotic, [facility] PT/OT/SN. Please Follow Up With: Adebayo Salguero MD When: As needed. Meaningful Use Info Meaningful Use Diagnoses (Choose all that apply): None applicable Discharge Plan Admission Admit Date/Time: 09/01/21 16:13 Primary Reason for Your Visit: Debility. Attending Provider: Adrián Almaraz Chi Consulting Providers: Adebayo Salguero Instructions Additional Instructions / Restrictions: Discharge home with 09/23/2021, CSI IV antibiotic, [facility] PT/OT/SN. Discharge Orders/Prescriptions Prescriptions: New ampicillin sodium 2 gram recon soln 2 g IV Q8H 10 Days Qty: 30 0RF Rx Instructions: stop date 10/02/21 dx: prosthetic joint infection weekly bmp, cbc, LFT, and esr. Fax to [phone] routine picc care with heparin/saline flush per protocol ertapenem [Invanz] 1 gram recon soln 1 g IV Q24H Qty: 10 0RF Rx Instructions: stop date 10/02/21 dx: prosthetic joint infection weekly bmp, cbc, LFT, and esr. Fax to [phone] routine picc care with heparin/saline flush per protocol acetaminophen 500 mg Tablet 1,000 mg PO Q6H PRN PRN (Reason: Pain Score 1-5) Qty: 0 0RF calcium carbonate 200 mg calcium (500 mg) Tablet,Chewable 1,000 mg PO Q4H PRN PRN (Reason: HEARTBURN OR INDIGESTION) Qty: 0 0RF menthol-zinc oxide [Calmoseptine] 0.44-20.6 % Ointment 1 applic topical 0800,1800 Qty: 0 0RF Protocol: *Topical Application Instructions APPLICATION INSTRUCTIONS: redness Biotene Dry Mouth Oral Rinse Mouthwash 15 ml mucous membrane 5X/DAY PRN (Reason: Dry Mouth) Qty: 0 0RF Xarelto 10 mg Tablet 10 mg PO DINNER 9 Days Qty: 9 0RF Continued atorvastatin 40 MG tablet 40 mg PO QHS duloxetine 60 MG capsule,delayed release(DR/EC) 60 mg PO DAILY Label Comments: TAKE 1 CAPSULE BY MOUTH DAILY polyethylene glycol 3350 17 GM packet 17 g PO DAILY PRN (Reason: Constipation) pregabalin 75 mg capsule 75 mg PO BID alprazolam 1 MG tablet 0.5 mg PO DAILY Rx Instructions: . lisinopril 20 mg tablet 20 mg PO DAILY alprazolam 1 mg Tablet 1 mg PO QHS melatonin 3 mg Tablet 6 mg PO QHS glimepiride 1 mg Tablet 1 mg PO DAILY aspirin 81 mg Tablet 81 mg PO DAILY cyclobenzaprine 5 mg Tablet 5 mg PO TID PRN (Reason: muscle relaxer) sennosides-docusate sodium [Stool Softener-Stimulant Laxat] 8.6-50 mg tablet 1 tab PO DAILY PRN PRN (Reason: Constipation) pantoprazole 40 mg tablet,delayed release (DR/EC) 40 mg PO DAILY metoprolol tartrate 25 mg tablet 25 mg PO BID Qty: 180 0RF No Action oxycodone-acetaminophen 1 TABLET tablet 1 tab PO Q6H PRN PRN (Reason: Pain) acetaminophen 325 mg Tablet 650 mg PO Q6H PRN (Reason: Pain) ertapenem [Invanz] 1 gram Recon Soln 1 g IV Q24H enoxaparin 40 mg/0.4 mL Syringe 40 mg SUBCUT Q12H ampicillin sodium 2 gram Piggyback 2 g IV Q8H Disposition Disposition (needs filled in before D/C Order can be placed): Home Health Service
[2021-09-21] MEDS: ALPRAZolam 0.5 MG Tablet 1 MG PO (22:22)
[2021-09-21] MEDS: Atorvastatin Calcium 40 MG Tablet PO (22:23)
[2021-09-22 06:20] LABS: Bedside Glucose 82 mg/dL (74-106)
[2021-09-22 08:12] VITALS: BP 119/62; PULSE 72
[2021-09-22] MEDS: Pantoprazole Sodium 40 MG Tablet PO (08:12)
[2021-09-22] MEDS: Metoprolol Tartrate 25 MG Tablet PO ×2 (08:12→17:43)
[2021-09-22] MEDS: DULoxetine Hcl 60 MG Capsule PO (08:12)
[2021-09-22] MEDS: Lisinopril 20 MG Tablet PO (08:12)
[2021-09-22] MEDS: Glimepiride 1 MG Tablet PO (08:13)
[2021-09-22] MEDS: ALPRAZolam 0.5 MG Tablet PO (08:15)
[2021-09-22] MEDS: Menthol/Lanolin/Calamine/Znox 113 GM Tube 1 APPLIC TOPICAL ×2 (08:17→17:44)
[2021-09-22] MEDS: 0.9% Saline Lock 10 ML Syringe IV ×3 (08:24→17:47)
[2021-09-22 08:25] LABS: Bedside Glucose 91 mg/dL (74-106)
[2021-09-22] MEDS: Pregabalin 75 MG Capsule PO ×2 (12:14→22:51)
[2021-09-22 14:07] VITALS: BP 154/76; PULSE 65; RESP 18; TEMP 36.1; O2SAT 97
[2021-09-22 17:43] VITALS: PULSE 72
[2021-09-22] MEDS: Rivaroxaban 10 MG Tablet PO (17:43)
[2021-09-22] MEDS: cycloBENZAPRine HCl 5 MG TABLET PO (17:43)
[2021-09-22] MEDS: oxyCODONE 5 MG Tablet PO (19:43)
[2021-09-22 20:40] VITALS: PULSE 64; RESP 16; O2SAT 95
[2021-09-22] MEDS: Atorvastatin Calcium 40 MG Tablet PO (22:51)
[2021-09-22] MEDS: ALPRAZolam 0.5 MG Tablet 1 MG PO (22:52)
[2021-09-22] MEDS: Acetaminophen 500 MG Tablet 1000 MG PO (23:44)
[2021-09-23] MEDS: cycloBENZAPRine HCl 5 MG TABLET PO (03:41)
[2021-09-23] MEDS: 0.9% Saline Lock 10 ML Syringe IV (05:04)
[2021-09-23 06:12] LABS: Absolute Lymphocyte Count 1.93 X10^3/uL (0.83-4.51); Absolute Neutrophil Count 6.6 X10^3/uL (2.0-7.7); Eosinophils% 2.1 % (0-5); Hematocrit 28.2 % (37-47); Hemoglobin 8.2 g/dL (12.0-15.0); Lymphocyte # 1.93 X10^3/ul (0.83-4.51); Mean Corp Hgb Conc 29.1 g/dL (32-36); Mean Corpuscular Hgb 23.9 pg (27.0-32.0); Mean Corpuscular Volume 82.2 fL (81-99); Mean Platelet Vol. 9.9 fl (6.2-12.0); Monocyte# 0.83 X10^3/uL; Monocyte% 8.6 % (0-10); NRBC Flagged by Analyzer 0 % (0-5); Neutrophil # 6.57 X10^3/uL (2.7-7.7); Neutrophil % 67.9 % (47-70); Platelet Count 282 K/mm3 (150-450); RBC Distribution Width CV 17.4 % (11.6-14.6); Red Blood Count 3.43 M/mm3 (4.2-5.4); White Blood Count 9.7 K/mm3 (4.4-11.0)
[2021-09-23 06:16] LABS: Bedside Glucose 79 mg/dL (74-106)
[2021-09-23 06:38] LABS: Anion Gap 5 (5-15); BUN 18 mg/dL (7-18); BUN/Creat Ratio 20.8 RATIO (10-20); Calcium,Total 9.2 mg/dL (8.5-10.1); Chloride 109 mmol/L (98-107); Creatinine, Serum 0.87 mg/dL (0.55-1.02); EST Glomerular Filtration Rate 69 mL/min (>60); Est Glom Filt Rate - Afr Amer 84 mL/min (>60); Estimated Creatinine Clearance 49.63 ml/min; Glucose 89 mg/dL (74-106); Potassium 3.7 mmol/L (3.5-5.1); Sodium Level 141 mmol/L (136-145)
[2021-09-23 08:12] VITALS: BP 129/63; PULSE 63
[2021-09-23] MEDS: ALPRAZolam 0.5 MG Tablet PO (08:12)
[2021-09-23] MEDS: Pantoprazole Sodium 40 MG Tablet PO (08:12)
[2021-09-23] MEDS: Metoprolol Tartrate 25 MG Tablet PO (08:12)
[2021-09-23] MEDS: Lisinopril 20 MG Tablet PO (08:13)
[2021-09-23] MEDS: DULoxetine Hcl 60 MG Capsule PO (08:13)
[2021-09-23] MEDS: Menthol/Lanolin/Calamine/Znox 113 GM Tube 1 APPLIC TOPICAL (08:13)
[2021-09-23 08:53] VITALS: PULSE 63; RESP 16; O2SAT 94
[2021-09-23 09:07] VITALS: BP 129/63; PULSE 63; RESP 16; TEMP 36.8; O2SAT 94
--- NOTE | 2021-09-23 10:11 | CASEMGMT ---
Social Work BIMS and PHQ-9 completed for MDS assessment. 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
== END 2021-09-23 08:55 | disposition home health service (06) | DRG 949 ==
PROVIDERS: Admitting Provider Family Medicine Geriatric Medicine; Visit Provider Family Medicine Geriatric Medicine
DX: T84.53XD Infection and inflammatory reaction due to internal right knee prosthesis, subsequent encounter (principal); G81.91 Hemiplegia, unspecified affecting right dominant side; Z68.42 Body mass index [BMI] 45.0-49.9, adult; E11.42 Type 2 diabetes mellitus with diabetic polyneuropathy; E66.01 Morbid (severe) obesity due to excess calories; B95.2 Enterococcus as the cause of diseases classified elsewhere; B96.89 Other specified bacterial agents as the cause of diseases classified elsewhere; E78.5 Hyperlipidemia, unspecified; I25.10 Atherosclerotic heart disease of native coronary artery without angina pectoris; K21.9 Gastro-esophageal reflux disease without esophagitis; I10 Essential (primary) hypertension; F41.9 Anxiety disorder, unspecified; F32.A Depression, unspecified; Y79.2 Prosthetic and other implants, materials and accessory orthopedic devices associated with adverse incidents; Z79.899 Other long term (current) drug therapy; Z79.82 Long term (current) use of aspirin; Z79.84 Long term (current) use of oral hypoglycemic drugs; Z23 Encounter for immunization
CPT/HCPCS: 0064A; 36415; 80048; 82962; 85025; 85652; 87426; 91306; 92507; 92523; 97110; 97116; 97129; 97162; 97166; 97530; 97535; 97802; J7050; A4216

== ENCOUNTER → 2021-09-28 | Outpatient (CLI) | payer MEDICARE, OTHER, SELFPAY ==
[2021-09-28 15:01] LABS: Erythrocyte Sedimentation Rate 45 mm/hr (0-30)
[2021-09-28 15:03] LABS: Absolute Lymphocyte Count 1.58 X10^3/uL (0.83-4.51); Absolute Neutrophil Count 3.9 X10^3/uL (2.0-7.7); Basophil# 0.06 X10^3/uL; Eosinophil# 0.34 X10^3/uL; Eosinophils% 5.4 % (0-5); Hematocrit 27.4 % (37-47); Hemoglobin 8.1 g/dL (12.0-15.0); Lymphocyte # 1.58 X10^3/ul (0.83-4.51); Lymphocyte % 25.2 % (19-41); Mean Corp Hgb Conc 29.6 g/dL (32-36); Mean Corpuscular Hgb 23.6 pg (27.0-32.0); Mean Corpuscular Volume 79.9 fL (81-99); Mean Platelet Vol. 10.1 fl (6.2-12.0); Monocyte# 0.42 X10^3/uL; Monocyte% 6.7 % (0-10); NRBC Flagged by Analyzer 0 % (0-5); Neutrophil # 3.86 X10^3/uL (2.7-7.7); Neutrophil % 61.5 % (47-70); Platelet Count 250 K/mm3 (150-450); RBC Distribution Width CV 17.8 % (11.6-14.6); RBC Distribution Width SD 51.9 fl (35.1-43.9); Red Blood Count 3.43 M/mm3 (4.2-5.4); White Blood Count 6.3 K/mm3 (4.4-11.0)
[2021-09-28 15:10] LABS: AST(SGOT) 17 U/L (15-37); Alanine Aminotransfer ALT/SGPT 26 U/L (13-56); Albumin, Serum 2.8 g/dL (3.2-5.0); Alkaline Phosphatase 257 U/L (45-117); Anion Gap 6 (5-15); BUN 5 mg/dL (7-18); BUN/Creat Ratio 5.8 RATIO (10-20); Bilirubin, Direct 0.09 mg/dL (0.00-0.30); Calcium,Total 8.5 mg/dL (8.5-10.1); Chloride 109 mmol/L (98-107); Creatinine, Serum 0.87 mg/dL (0.55-1.02); EST Glomerular Filtration Rate 69 mL/min (>60); Est Glom Filt Rate - Afr Amer 84 mL/min (>60); Globulin 3.3 g/dL (2.2-4.2); Glucose 141 mg/dL (74-106); Potassium 3.5 mmol/L (3.5-5.1); Protein, Total 6.1 g/dL (6.4-8.2); Sodium Level 144 mmol/L (136-145)
== END | disposition home or self-care (01) ==
LOC: LABSPEC 14:38
PROVIDERS: Referring Provider Internal Medicine Infectious Disease; Visit Provider Internal Medicine Infectious Disease
DX: T81.31XA Disruption of external operation (surgical) wound, not elsewhere classified, initial encounter (principal); Z79.2 Long term (current) use of antibiotics
CPT/HCPCS: 80048; 80076; 85025; 85652

== ENCOUNTER → 2021-10-03 | Outpatient (CLI) | payer MEDICARE, OTHER, SELFPAY ==
[2021-10-03 13:58] LABS: Erythrocyte Sedimentation Rate 31 mm/hr (0-30)
[2021-10-03 14:00] LABS: Absolute Lymphocyte Count 1.53 X10^3/uL (0.83-4.51); Absolute Neutrophil Count 4.4 X10^3/uL (2.0-7.7); Basophil# 0.09 X10^3/uL; Basophil% 1.2 % (0-1); Eosinophil# 0.65 X10^3/uL; Eosinophils% 8.8 % (0-5); Hematocrit 29.4 % (37-47); Hemoglobin 8.3 g/dL (12.0-15.0); Lymphocyte # 1.53 X10^3/ul (0.83-4.51); Lymphocyte % 20.6 % (19-41); Mean Corp Hgb Conc 28.2 g/dL (32-36); Mean Corpuscular Hgb 23.1 pg (27.0-32.0); Mean Corpuscular Volume 81.9 fL (81-99); Mean Platelet Vol. 10.3 fl (6.2-12.0); Monocyte# 0.69 X10^3/uL; Monocyte% 9.3 % (0-10); NRBC Flagged by Analyzer 0 % (0-5); Neutrophil # 4.43 X10^3/uL (2.7-7.7); Neutrophil % 59.7 % (47-70); Platelet Count 268 K/mm3 (150-450); RBC Distribution Width CV 19.5 % (11.6-14.6); RBC Distribution Width SD 57.6 fl (35.1-43.9); Red Blood Count 3.59 M/mm3 (4.2-5.4); White Blood Count 7.4 K/mm3 (4.4-11.0)
[2021-10-03 14:10] LABS: AST(SGOT) 23 U/L (15-37); Alanine Aminotransfer ALT/SGPT 20 U/L (13-56); Albumin, Serum 2.9 g/dL (3.2-5.0); Alkaline Phosphatase 247 U/L (45-117); Anion Gap 7 (5-15); BUN 7 mg/dL (7-18); BUN/Creat Ratio 7.6 RATIO (10-20); Bilirubin, Direct 0.07 mg/dL (0.00-0.30); Calcium,Total 8.6 mg/dL (8.5-10.1); Chloride 110 mmol/L (98-107); Creatinine, Serum 0.92 mg/dL (0.55-1.02); EST Glomerular Filtration Rate 65 mL/min (>60); Est Glom Filt Rate - Afr Amer 78 mL/min (>60); Globulin 3.2 g/dL (2.2-4.2); Glucose 114 mg/dL (74-106); Potassium 3.6 mmol/L (3.5-5.1); Protein, Total 6.1 g/dL (6.4-8.2); Sodium Level 146 mmol/L (136-145)
== END | disposition home or self-care (01) ==
LOC: LABSPEC 13:39
PROVIDERS: PCP Internal Medicine Infectious Disease; Referring Provider Internal Medicine Infectious Disease; Visit Provider Internal Medicine Infectious Disease
DX: T81.31XA Disruption of external operation (surgical) wound, not elsewhere classified, initial encounter (principal)
CPT/HCPCS: 80048; 80076; 85025; 85652

== ENCOUNTER → 2021-10-12 | Outpatient (CLI) | payer MEDICARE, OTHER, SELFPAY ==
[2021-10-12 12:02] LABS: Absolute Lymphocyte Count 1.73 X10^3/uL (0.83-4.51); Absolute Neutrophil Count 6.4 X10^3/uL (2.0-7.7); Basophil% 1.1 % (0-1); Eosinophil# 0.26 X10^3/uL; Eosinophils% 2.8 % (0-5); Hematocrit 35.6 % (37-47); Hemoglobin 10.3 g/dL (12.0-15.0); Lymphocyte # 1.73 X10^3/ul (0.83-4.51); Lymphocyte % 18.4 % (19-41); Mean Corp Hgb Conc 28.9 g/dL (32-36); Mean Platelet Vol. 10.4 fl (6.2-12.0); Monocyte# 0.88 X10^3/uL; Monocyte% 9.4 % (0-10); NRBC Flagged by Analyzer 0 % (0-5); Neutrophil # 6.39 X10^3/uL (2.7-7.7); POSITIVE MORPHOLOGY YES; Platelet Count 543 K/mm3 (150-450); RBC Distribution Width CV 20.5 % (11.6-14.6); RBC Distribution Width SD 62.4 fl (35.1-43.9); Red Blood Count 4.29 M/mm3 (4.2-5.4); White Blood Count 9.4 K/mm3 (4.4-11.0)
[2021-10-12 12:03] LABS: Differential Indicated SCAN CRITERIA MET
[2021-10-12 12:34] LABS: Anion Gap 9 (5-15); BUN 10 mg/dL (7-18); BUN/Creat Ratio 9.3 RATIO (10-20); Calcium,Total 9.7 mg/dL (8.5-10.1); Chloride 108 mmol/L (98-107); Creatinine, Serum 1.08 mg/dL (0.55-1.02); EST Glomerular Filtration Rate 54 mL/min (>60); Est Glom Filt Rate - Afr Amer 65 mL/min (>60); Glucose 111 mg/dL (74-106); Potassium 3.6 mmol/L (3.5-5.1); Sodium Level 141 mmol/L (136-145)
[2021-10-12 12:37] LABS: Anisocytosis 1+; Platelet Estimate MOD INC (ADEQ)
== END | disposition home or self-care (01) ==
LOC: MFPLAB 10:51
PROVIDERS: PCP Internal Medicine Infectious Disease; Visit Provider Family Medicine
DX: R35.0 Frequency of micturition (principal)
CPT/HCPCS: 36415; 80048; 85025

== ENCOUNTER → 2021-10-13 | Outpatient (CLI) | payer MEDICARE, OTHER, SELFPAY | END | disposition home or self-care (01) | LOC: MFPLAB 15:18 | PROVIDERS: PCP Internal Medicine Infectious Disease; Visit Provider Family Medicine | DX: R35.0 Frequency of micturition (principal) | CPT/HCPCS: 87077; 87086; 87088; 87186 ==

== ENCOUNTER → 2021-12-08 | Outpatient (CLI) | payer MEDICARE, OTHER, SELFPAY ==
[2021-12-08 12:12] LABS: Absolute Lymphocyte Count 1.52 X10^3/uL (0.83-4.51); Absolute Neutrophil Count 5.3 X10^3/uL (2.0-7.7); Basophil# 0.07 X10^3/uL; Basophil% 0.9 % (0-1); Eosinophils% 3.9 % (0-5); Hematocrit 29.4 % (37-47); Hemoglobin 8.6 g/dL (12.0-15.0); Lymphocyte # 1.52 X10^3/ul (0.83-4.51); Lymphocyte % 19.6 % (19-41); Mean Corp Hgb Conc 29.3 g/dL (32-36); Mean Corpuscular Hgb 25.1 pg (27.0-32.0); Mean Corpuscular Volume 85.7 fL (81-99); Mean Platelet Vol. 10.2 fl (6.2-12.0); Monocyte# 0.57 X10^3/uL; Monocyte% 7.3 % (0-10); NRBC Flagged by Analyzer 0 % (0-5); Neutrophil # 5.29 X10^3/uL (2.7-7.7); Platelet Count 421 K/mm3 (150-450); RBC Distribution Width CV 19.4 % (11.6-14.6); RBC Distribution Width SD 61.5 fl (35.1-43.9); Red Blood Count 3.43 M/mm3 (4.2-5.4); White Blood Count 7.8 K/mm3 (4.4-11.0)
[2021-12-08 12:35] LABS: Hemoglobin A1c 5.7 % (3.8-5.6)
[2021-12-08 12:54] LABS: Anion Gap 10 (5-15); BUN 12 mg/dL (7-18); BUN/Creat Ratio 11.5 RATIO (10-20); Chloride 105 mmol/L (98-107); Cholesterol 161 mg/dL (200); Creatinine, Serum 1.04 mg/dL (0.55-1.02); EST Glomerular Filtration Rate 56 mL/min (>60); Est Glom Filt Rate - Afr Amer 68 mL/min (>60); Glucose 102 mg/dL (74-106); High Density Lipoprotein 57 mg/dL; Potassium 3.5 mmol/L (3.5-5.1); Sodium Level 138 mmol/L (136-145); Triglycerides 155 mg/dL; Very Low Density Lipoprotein 31 mg/dL (5-40)
== END | disposition home or self-care (01) ==
LOC: MFPLAB 11:04
PROVIDERS: PCP Internal Medicine Infectious Disease; Visit Provider Family Medicine
DX: E11.9 Type 2 diabetes mellitus without complications (principal); G89.18 Other acute postprocedural pain
CPT/HCPCS: 36415; 80048; 80061; 83036; 85025

== ENCOUNTER → 2022-01-18 | Outpatient (CLI) | payer MEDICARE, OTHER, SELFPAY ==
--- NOTE | 2022-01-18 15:14 | RAD_ITS ---
EXAM: XR RIGHT FOOT COMPLETE, 3 OR MORE VIEWS CLINICAL INDICATION: fall TECHNIQUE: Frontal, lateral and oblique views of the right foot. This report was created using [employer] report generation technology. COMPARISON: 03/22/2021 FINDINGS: BONES/JOINTS: There is an orthopedic plate and screws seen across old distal fibular fracture. There is a vague lucency at the base of the second metatarsal as present on previous exam and may represent a nonunion fracture. Preservation of the joint space. SOFT TISSUES: Unremarkable. No soft tissue swelling or gas. No radiopaque foreign body. 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 No acute osseous abnormalities are identified. Electronically Signed: Giovani Bettencourt MD at 0:03 EDT ,
== END | disposition home or self-care (01) ==
PROVIDERS: PCP Family Medicine; Referring Provider Family Medicine; Visit Provider Family Medicine
DX: S92.321K Displaced fracture of second metatarsal bone, right foot, subsequent encounter for fracture with nonunion (principal)
CPT/HCPCS: 73630

== ENCOUNTER → 2022-04-27 | Outpatient (CLI) | payer MEDICARE, OTHER, SELFPAY ==
[2022-04-27 14:54] LABS: Mucous, Urine 0 SEEN /hpf (<or=2+); Red Blood Cells-Urine 0 SEEN /hpf (0-5)
[2022-04-27 18:03] LABS: Hemoglobin A1c 6.2 % (3.8-5.6)
[2022-04-27 18:23] LABS: Color, Urine Yellow (Yellow); Glucose, Dipstick Normal (Normal); Ketone-Dipstick Negative (Negative); Leukocyte Esterase-Dipstick 500 /ul (Negative); Nitrite-Dipstick Positive (Negative); Occult Blood-Urine Negative /ul (Negative); Protein-Dipstick Negative (Negative); Urine Bilirubin Dipstick Negative (Negative); Urine Clarity Sl. Cloudy (Clear); Urine Urobilinogen Normal (Normal)
[2022-04-27 19:15] LABS: Bacteria 2+ /hpf (None Seen); Squamous Epithelial Cells - UA 5-10 SEEN /hpf (5-10); White Blood Cells 50-100 SEEN /hpf (0-5)
[2022-04-27 19:28] LABS: Anion Gap 6 (5-15); BUN 15 mg/dL (7-18); BUN/Creat Ratio 16.6 RATIO (10-20); Calcium,Total 10.1 mg/dL (8.5-10.1); Chloride 106 mmol/L (98-107); Cholesterol 177 mg/dL (200); EST Glomerular Filtration Rate 66 mL/min (>60); Est Glom Filt Rate - Afr Amer 79 mL/min (>60); Glucose 79 mg/dL (74-106); High Density Lipoprotein 64 mg/dL; Sodium Level 139 mmol/L (136-145); Triglycerides 186 mg/dL; Very Low Density Lipoprotein 37 mg/dL (5-40)
== END | disposition home or self-care (01) ==
LOC: MFPLAB 14:46
PROVIDERS: PCP Family Medicine; Visit Provider Family Medicine
DX: E11.9 Type 2 diabetes mellitus without complications (principal); E66.9 Obesity, unspecified; R30.0 Dysuria
CPT/HCPCS: 36415; 80048; 80061; 81001; 83036; 84443; 87077; 87086; 87088; 87186

== ENCOUNTER → 2022-06-07 | Outpatient (CLI) | payer MEDICARE, OTHER, SELFPAY ==
[2022-06-07 15:47] LABS: Anion Gap 5 (5-15); BUN 18 mg/dL (7-18); BUN/Creat Ratio 16.5 RATIO (10-20); Calcium,Total 9.7 mg/dL (8.5-10.1); Chloride 110 mmol/L (98-107); Creatinine, Serum 1.09 mg/dL (0.55-1.02); EST Glomerular Filtration Rate 53 mL/min (>60); Est Glom Filt Rate - Afr Amer 64 mL/min (>60); Glucose 148 mg/dL (74-106); Magnesium 2.2 mg/dL (1.6-2.6); Potassium 4.5 mmol/L (3.5-5.1); Sodium Level 142 mmol/L (136-145); Thyroid Stim Hormone (TSH) 0.98 uIU/mL (0.358-3.74)
== END | disposition home or self-care (01) ==
LOC: LAB 14:26
PROVIDERS: PCP Family Medicine; Referring Provider Internal Medicine Cardiovascular Disease; Visit Provider Internal Medicine Cardiovascular Disease
DX: I25.10 Atherosclerotic heart disease of native coronary artery without angina pectoris (principal); R00.2 Palpitations; Z95.5 Presence of coronary angioplasty implant and graft
CPT/HCPCS: 36415; 80048; 83735; 84443

== ENCOUNTER → 2022-06-15 | Outpatient (CLI) | payer MEDICARE, OTHER, SELFPAY ==
--- NOTE | 2022-06-15 07:01 | ECHOCS_ITS ---
Reason For Study: CAD/ASHD Procedure This was a 2D Doppler, Color Flow transthoracic echocardiogram. The study was technically difficult. Contrast injection was performed. Exam performed in department. Left Ventricle Normal LV size. Mild concentric left ventricular hypertrophy. Left ventricular systolic function is hyperdynamic. The estimated ejection fraction is 70 %. Diastolic function is indeterminate. No regional wall motion abnormalities noted. Right Ventricle Normal RV size. Normal systolic function. Atria The left and right atria are normal. Mitral Valve The mitral valve is structurally normal. No prolapse or stenosis seen. Tricuspid Valve Mild (1+) tricuspid valve insufficiency. Pulmonary artery systolic pressure is 42 mmHg. Aortic Valve The aortic valve is not well visualized in the short axis view. There is no aortic stenosis. Mild (1+) aortic valve insufficiency. Pulmonic Valve The pulmonic valve is not well visualized. Trivial pulmonic valve insufficiency. Great Vessels Normal sized aortic root. Pericardium/Pleural No pericardial effusion. Medication 20 gauge I.V. with prn adaptor inserted into right arm. Diluted definity 2ml given slow IV push to enhance endocardial definition. MMode/2D Measurements & Calculations LVIDd: 3.7 cm IVSd: 1.1 cm Ao root diam: 3.5 cm LVIDs: 2.6 cm LVPWd: 1.1 cm LA dimension: 3.2 cm FS: 29.1 % LAV(MOD-bp): 33.9 ml LA A4 area: 12.5 cm2 RA A4 area: 13.4 cm2 LAV(MOD-bp) Indexed: 16.1 ml/m2 LAV(MOD-sp2): 26.5 ml LAV(MOD-sp4): 33.9 ml Time Measurements MV dec time: 0.26 sec Doppler Measurements & Calculations MV E max owen: 67.4 cm/sec Lat Peak E' Owen: 5.0 cm/sec Med Peak E' Owen: 7.2 cm/sec MV A max owen: 89.0 cm/sec E/E' lat: 13.6 E/E' med: 9.3 MV E/A: 0.76 MV V2 max: 95.3 cm/sec MV dec slope: 264.6 cm/sec2 Ao V2 max: 163.6 cm/sec MV max P.6 mmHg Ao max P.7 mmHg MV V2 mean: 51.5 cm/sec Ao V2 mean: 116.2 cm/sec MV mean P.3 mmHg Ao mean P.0 mmHg MV V2 VTI: 31.0 cm Ao V2 VTI: 34.2 cm AI max owen: 408.9 cm/sec LV V1 max: 123.4 cm/sec PA V2 max: 123.5 cm/sec AI max P.9 mmHg LV V1 max P.1 mmHg PA V2 mean: 84.1 cm/sec AI dec slope: 213.1 cm/sec2 AI P1/2t: 561.9 msec TR max owen: 315.2 cm/sec TR max P.7 mmHg ECHO/Echo Complete W/ Contrast Interpretation Summary Left ventricular systolic function is hyperdynamic. The estimated ejection fraction is 70 %. Diastolic function is indeterminate. Pulmonary artery systolic pressure is 42 mmHg. Mild (1+) aortic valve insufficiency. Ordering Physician: Lilia Almendarez Referring Physician: Sudheer Lion Performed By: Levon Timmons RCS
--- NOTE | 2022-06-15 11:13 | STRESSREP_ITS ---
Stress Test Report Date: 06/15/2022 Procedure: Pharmacologic stress nuclear imaging study Indications: Coronary artery disease; palpitations Consent: Per the patient Procedure: The patient underwent pharmacologic (Regadenoson 0.4mg ) evaluation with a peak heart rate of 91 beats per minute (59%predicted maximal heart rate) and a peak blood pressure of 154/82 mmHg. The baseline ECG demonstrated normal sinus rhythm. The peak pharmacologic ECG demonstrated no ischemic changes. There were no cardiac dysrhythmias pretest, during pharmacologic infusion, or recovery. There was no complaint of chest discomfort during pharmacologic infusion or recovery. The patient was injected with 14.9 millicuries of technetium 99m Cardiolite and subsequently rest SPECT Cardiolite nuclear imaging was obtained in the horizontal long, vertical long, and short axis views. The patient underwent pharmacologic (Regadenoson) evaluation. The patient was injected with 45.0 millicuries of technetium 99m Cardiolite and subsequently stress SPECT Cardiolite nuclear imaging was obtained in the horizontal long, vertical long, and short axis views. A gated Cardiolite study at peak stress was obtained. The examination was stopped secondary to completion of protocol. Rest and stress SPECT Cardiolite nuclear imaging status post realignment, normalization, and attenuation correction demonstrate moderate area of mildly reduced perfusion post Lexiscan in the anterior wall. There is end systolic thickening and brightening. The gated Cardiolite study demonstrates myocardial thickening and inward wall motion. The reported LVEF is 77%. Impression: 1. Pharmacologic (Regadenoson) evaluation 2. Peak pharmacologic ECG with no ischemic change. 3. There were no cardiac dysrhythmias pretest, during pharmacologic infusion, or recovery. 5. Moderate sized reversible perfusion defect of the anterior wall suggestive of ischemia. 6. The gated Cardiolite study reports an LVEF of 77%. This note was generated with [employer] assistantation software. It may contain incorrect words, spelling, and punctuation that were not noted in checking the note before signing.
== END | disposition home or self-care (01) ==
LOC: CVS 06:59
PROVIDERS: PCP Family Medicine; Visit Provider Internal Medicine Cardiovascular Disease
DX: I25.10 Atherosclerotic heart disease of native coronary artery without angina pectoris (principal); R00.2 Palpitations
CPT/HCPCS: 78452; 93017; 93306; A9500; Q9957; A4216; C8929; J2785

== ENCOUNTER 2022-06-29 07:33 | Day surgery (SDC) | payer MEDICARE, OTHER, SELFPAY ==
--- NOTE | 2022-06-26 13:28 | RAD_ITS ---
STUDY: X-RAY CHEST REASON FOR EXAM: Female, 66 years old. Amputations. Patient for heart catheter. TECHNIQUE: PA and lateral views of the chest. COMPARISON: July 12, 2020. FINDINGS: The lungs are clear and expanded. There is no demonstrated pleural abnormality. Normal size heart. Normal mediastinum and aayush. Normal visualized pulmonary arteries. Normal visualized aortic arch and descending thoracic aorta. Normal visualized thoracic spine. Mild degenerative changes of the shoulders. There is no demonstrated abnormality of the visualized soft tissue structures of the upper abdomen. RAD/Chest PA and Lateral IMPRESSION: No acute cardiopulmonary disease. Electronically Signed: Francis Betancur DO at 17:32 EDT ,
[2022-06-26 13:52] LABS: Mucous, Urine 0 SEEN /hpf (<or=2+); Red Blood Cells-Urine 0 SEEN /hpf (0-5)
[2022-06-26 15:48] LABS: Hematocrit 43.6 % (37-47); Mean Corp Hgb Conc 32.1 g/dL (32-36); Mean Corpuscular Hgb 28.7 pg (27.0-32.0); Mean Corpuscular Volume 89.5 fL (81-99); Mean Platelet Vol. 10.8 fl (6.2-12.0); Platelet Count 345 K/mm3 (150-450); RBC Distribution Width CV 13.7 % (11.6-14.6); RBC Distribution Width SD 44.5 fl (35.1-43.9); Red Blood Count 4.87 M/mm3 (4.2-5.4); White Blood Count 9.7 K/mm3 (4.4-11.0)
[2022-06-26 15:56] LABS: International Normalized Ratio 1.1; Prothrombin Time (Protime)PT. 14.3 SECONDS (11.7-14.9)
[2022-06-26 15:57] LABS: Partial Thromboplast Time 26.3 Seconds (24.1-36.2)
[2022-06-26 16:10] LABS: Color, Urine Yellow (Yellow); Glucose, Dipstick Normal (Normal); Ketone-Dipstick Negative (Negative); Leukocyte Esterase-Dipstick 500 /ul (Negative); Nitrite-Dipstick Positive (Negative); Occult Blood-Urine 25 /ul (Negative); Protein-Dipstick 30 mg/dl (Negative); Urine Bilirubin Dipstick Negative (Negative); Urine Clarity Cloudy (Clear); Urine Urobilinogen Normal (Normal)
[2022-06-26 16:51] LABS: Bacteria 1+ /hpf (None Seen); Squamous Epithelial Cells - UA 5-10 SEEN /hpf (5-10); White Blood Cells >100 SEEN /hpf (0-5)
[2022-06-28 09:00] VITALS: BMI 45.7
--- NOTE | 2022-06-29 09:37 | CL.D_ITS ---
Patient Name: MACKENZIE AKHTAR Study Date: 06/29/2022 Performing: Lilia Almendarez MD Ht: 62 inches 157.48 cm : 1955 Wt: 250 lbs 113.4 kg Age: 66 Gender: female BSA: 2.1 PROCEDURE(S) PERFORMED [id number]-([id number])[facility] CLINICAL PROFILE AND INDICATIONS Indications: Cardiac Arrythmia Heart Failure: None Stress/Imaging Stress Test w/SPECT MPI: Yes Result: Positive Intermediate RiskStress Test with SPECT MPI: Positive Intermediate Risk CONCLUSIONS 30% Prox LAD; Stent to Prox LAD patent; 50% distal LAD 10-20% ISR Prox RCA RECOMMENDATIONS Medical therapy DESCRIPTION OF PROCEDURE The patient arrived to the procedure lab. The risks and benefits of the procedure as well as a full description of our services here and current unavailability of surgical backup were fully explained to the patient and/or their significant other prior to the catheterization. The Timeout was completed, verifying the correct patient and procedure. The patient's procedural site was prepped and draped in the usual fashion. Local anesthetic was given subcutaneously to right radial region with Lidocaine 2%. Using a modified Seldinger technique, arterial access was obtained via the right radial artery, a 6Fr sheath was inserted. Right Coronary Artery selective angiography was then performed in multiple views using a 5 Fr. 4.0 [place] catheter. Left Coronary Artery selective angiography was performed in multiple views using a 5 Fr. 4.0 [place] catheter.The arterial sheath was pulled and a TR Band was applied for hemostasis w/ 8ml air CORONARY ANGIOGRAPHY DOMINANCE: Right Dominant LEFT MAIN: Angiographically normal LEFT ANTERIOR DESCENDING ARTERY: LAD: Tubular 30% Proximal lesion in LAD Tubular 50% Mid lesion in LAD CIRCUMFLEX ARTERY: Angiographically normal RIGHT CORONARY ARTERY: RCA: In-Stent Restenosis 20% Proximal lesion in RCA, STENT to 0% COMPLICATIONS No Complications PROCEDURE MEDICATIONS Versed 1 mg IV Fentanyl 50 mcg IV Versed 1 mg IV Oxygen: 2 L/min via nasal cannula Verapamil 2.5mg, Ntg 200mcgs given IA 06/29/2022 09:15:11 SUMMARY OF HEMODYNAMIC DATA Time AIR REST ECG 08:00:55 ECG 08:01:27 AO 121/58 (84) SA 09:20:02 Signed By Lilia Almendarez MD On 06/29/2022 09:36:19 Lilia Almendarez MD
== END 2022-06-29 11:00 | disposition home or self-care (01) ==
PROVIDERS: PCP Family Medicine; Visit Provider Internal Medicine Cardiovascular Disease
DX: T82.855A Stenosis of coronary artery stent, initial encounter (principal); E66.01 Morbid (severe) obesity due to excess calories; Y83.8 Other surgical procedures as the cause of abnormal reaction of the patient, or of later complication, without mention of misadventure at the time of the procedure; I25.10 Atherosclerotic heart disease of native coronary artery without angina pectoris; I10 Essential (primary) hypertension; E78.5 Hyperlipidemia, unspecified; Z79.84 Long term (current) use of oral hypoglycemic drugs; Z79.82 Long term (current) use of aspirin; Z79.02 Long term (current) use of antithrombotics/antiplatelets; Z79.899 Other long term (current) drug therapy; Z95.5 Presence of coronary angioplasty implant and graft
CPT/HCPCS: 36415; 71046; 81001; 85027; 85610; 85730; 87077; 87086; 87088; 87186; 93454; 99152; 99153; J7030; J7040; Q9967; C1769; C1894

== ENCOUNTER 2022-07-26 14:00 | Outpatient (RCR) | payer MEDICARE, OTHER, SELFPAY ==
--- NOTE | 2022-05-11 17:45 | HP.PTEVAL ---
Patient's Visit Information MACKENZIE AKHTAR is a 66 year old F referred to Physical Therapy by Dr. Dagoberto Brown DO with a diagnosis of R LE weakness. Date of Evaluation: 05/11/22 Physical Therapist: Jose Oneal, PT, ATC - Visit Plan Frequency: 2x /Week Duration: 4-6 Weeks Plan: R LE strengthening, gait training with emphasis on wider TARA and standing upright, balance and proprio, nustep, and HEP - Subjective Pt reports she had a R TKA performed approximately 5 years ago. Pt reports she has had a total of 10 surgeries since that date because of an infection she had in R knee. Pt reports her last surgery was performed roughly 6 months ago to insert the prosthesis. Pt notes she is feeling better overall on todays date, but she notes she still has occasional pain that is severe in nature. Pt reports she has numbness in R holt and foot that are present since having her surgery. Pt notes she has to take pain pills in order to sleep throughout the night. Pt reports she had a CVA in 2005 which has affected her R LE. Pt notes she does walk at this time, but notes she has to use a walker for mobility. Pt reports she has fallen 20 times in the past year. Pt notes she has only injured herself on 2-3 of her falls. Pt has stairs at home, but chooses not to negotiate them at this time. Pt reports she is mostly here secondary to overall weakness and difficulty with mobility. - Objective Neuro: R L4 is hyposensitive to light touch. All other B LE's are WNL to light touch. MMT: L LE is grossly 5/5 throughout. R hip 4/5 while R knee 1/5. ROM: R knee is limited to approximately 3o degrees of ROM. All other LE's are WNL when compared bilaterally. Gait: Pt is able to ambulate approximately 39 feet with WW. Much VC's needed for standing upright and walking with wider TARA to prevent future falls - Balance/Special Test Scores Lower Extremity Functional Score: 78 - Goals Goal 1:: Increase R LE strength x 1 grade to aid with increasing tolerance for ambulation Goal Time Frame: 6-8 Weeks Goal 2:: Pt will be able to ambulate greater than 300 feet to aid with community ambulation Goal Time Frame: 6-8 Weeks Goal 3:: Pt will demonstrate a more appropriate gait pattern of larger TARA and upright standing to aid with preventing future falls Goal Time Frame: 6-8 Weeks Goal 4:: I with HEP Goal Time Frame: 6-8 Weeks - Rehabilitation Potential Physical Therapy Diagnosis: Pt has R LE weakness, Hx of falls, and difficulty with ambulation secondary to difficulties from R TKA Rehabilitation Potential: Good - Anticipated Interventions Patient/Client Instruction: Educate patient on: Condition, Plan of Care For the Purpose of:: To improve self management Therapeutic Exercise to Include: Strength training, Endurance training, Balance training, Flexibilty training, Gait and locomotor training, Dynamic Lumbar Stabilization For the Purpose of:: To improve muscle performance and motor function, To improve performance and independence with ADL's, To improve ability of physical actions for home/community/work/leisure Thank you for the opportunity to evaluate your patient. For Medicare and Medicare HMO plans, please review the plan of care and approve it. It will need to be FAXED BACK to us at [phone] for Medicare purposes. For Medicare only, by signing this I certify the plan of care. Please let me know if there are questions or concerns regarding this plan of care. Physician Signature: Date:
--- NOTE | 2022-10-11 09:15 | HP.PT.NRP ---
Patient Information Patient Information: MACKENZIE AKHTAR was seen in my office for initial evaluation on 05/11/22. The following Plan of Care was established for this patient: POC Established Initial Frequency: 2x /Week Initial Duration: 4-6 Weeks Anticipated Interventions Patient/Client Instruction: Educate patient on: Condition and Plan of Care For the Purpose of:: To improve self management Therapeutic Exercise to Include: Strength training, Endurance training, Balance training, Flexibilty training, Gait and locomotor training and Dynamic Lumbar Stabilization For the Purpose of:: To improve muscle performance and motor function, To improve performance and independence with ADL's and To improve ability of physical actions for home/community/work/leisure Last Seen Last Seen: This patient was last seen in our office . Pertinent comments regarding their Physical therapy will appear below: Pt was treated for 4 PT visits for R LE weakness through the date of 07/26/22. Pt has not returned through todays date and is discontinued at this time. At this point I will be discontinuing this patient from physical therapy. I would be happy to see this patient again in the future if found appropriate by the physician. Thank you! Jose Oneal, PT, ATC Balance/Gait/Functional tests Balance/Special Test Scores Lower Extremity Functional Score: 78
== END 2022-07-26 19:00 | disposition home or self-care (01) ==
LOC: PT 14:00
PROVIDERS: PCP Family Medicine; Referring Provider Orthopaedic Surgery Adult Reconstructive Orthopaedic Surgery; Visit Provider Orthopaedic Surgery Adult Reconstructive Orthopaedic Surgery
DX: Z47.1 Aftercare following joint replacement surgery (principal); Z96.651 Presence of right artificial knee joint
CPT/HCPCS: 97110; 97116; 97161; 97164; 97530

== ENCOUNTER 2022-09-16 12:38 | Emergency (ER) | payer MEDICARE, OTHER, SELFPAY ==
[2022-09-16 12:39] VITALS: BP 137/67; PULSE 55; RESP 12; TEMP 36.8; O2SAT 96; BMI 49.8
--- NOTE | 2022-09-16 13:03 | ED.VIS.FALL ---
HPI HPI - Fall History of Present Illness Chief Complaint: Fall Detail of Chief Complaint: Slipped on water fell. Injuring her right lower leg around the ankle. Informant: patient Occured/Mechanism Occurred: Today Mechanism/Context: Yes same level fall and Yes slip Usually ambulates: Without assistance Pain/Injury Pain Location: lower extremity Quality of Pain: Sharp and Stabbing Current Severity: Severe Maximum Severity: Severe Associated Symptoms Associated Symptoms: Positive for Inability to ambulate; Negative for Parasthesias, Weakness, Loss of function, Loss of consciousness or Amnesia Narrative Narrative: 58-year-old female history of anemia, stroke, CAD with stent and diabetes. Prior fracture and surgery of her right ankle. Today she was at home slipped on some water fell landed on her right lower leg injuring her right ankle. She was brought in by squad and has been given fentanyl prior to arrival. She denies any other injuries. She did not hit her head. No LOC. Prior similar symptoms: Yes Recent Illness/Hospitalization: No PFSH PFS Medical History Acute on chronic anemia Alzheimer's disease Anemia Anxiety Atherosclerotic heart disease of [place] coronary artery without angina pectoris Body mass index (BMI) 45.0-49.9, adult Chronic pain Closed right ankle fracture Coronary artery disease CVA (cerebral vascular accident) Debility Depression Diabetic polyneuropathy Dislocation of right ankle joint Essential hypertension Fracture of medial malleolus, right, closed GERD (gastroesophageal reflux disease) Heart disease Hyperlipidemia Infection of prosthetic right knee joint Infection of total right knee replacement Insomnia Iron deficiency anemia Metatarsal fracture Morbid obesity Muscle spasm Nocturnal hypoxemia Non-smoker Other acute postprocedural pain Overactive bladder Presence of stent in coronary artery (~02/27/12) Pulmonary hypertension Right foot pain Right hemiparesis Right sided cerebral infarction Stroke Suicide attempt by drug ingestion Type 2 diabetes mellitus Walking difficulty due to ankle and foot Home Medications atorvastatin 40 mg tablet 40 mg PO QHS CHOLESTEROL 01/27/16 [History Last Taken 03/16/21] polyethylene glycol 3350 17 gram oral powder packet 17 g PO DAILY PRN Constipation 04/23/19 [History Last Taken 03/15/21] lisinopril 20 mg tablet 20 mg PO DAILY BP 03/17/21 [History Last Taken 03/16/21] pregabalin 75 mg capsule 75 mg PO BID NERVE PAIN 03/17/21 [History Last Taken 06/29/22] acetaminophen 325 mg tablet 650 mg PO Q6H PRN Pain 09/01/21 [History Last Taken Unknown] glimepiride 1 mg tablet 1 mg PO DAILY diabetes 09/01/21 [History Last Taken Unknown] pantoprazole 40 mg tablet,delayed release 40 mg PO DAILY reflux 09/01/21 [History Last Taken Unknown] sennosides 8.6 mg-docusate sodium 50 mg tablet (Stool Softener-Stimulant Laxative) 1 tab PO DAILY PRN PRN Constipation 09/01/21 [History Last Taken Unknown] acetaminophen 500 mg tablet 1,000 mg PO Q6H PRN PRN Pain Score 1-5 #0 tabs 09/21/21 [Rx Last Taken Unknown] calcium carbonate 200 mg calcium (500 mg) chewable tablet 1,000 mg PO Q4H PRN PRN HEARTBURN OR INDIGESTION #0 tabs 09/21/21 [Rx Last Taken Unknown] saliva substitute combo no.9 (Biotene Dry Mouth Oral Rinse mouthwash) 15 ml mucous membrane 5X/DAY PRN Dry Mouth #0 mL 09/21/21 [Rx Last Taken Unknown] alprazolam 0.5 mg tablet 0.5 mg PO DAILY 06/06/22 [History Last Taken Unknown] amlodipine 10 mg tablet 10 mg PO DAILY 06/06/22 [History Last Taken Unknown] cholecalciferol (vitamin D3) 25 mcg (1,000 unit) capsule 25 mcg PO DAILY 06/06/22 [History Last Taken Unknown] clopidogrel 75 mg tablet 75 mg PO DAILY 06/06/22 [History Last Taken 06/29/22] donepezil 5 mg tablet 5 mg PO DAILY 06/06/22 [History Last Taken Unknown] famotidine 20 mg tablet 20 mg PO DAILY 06/06/22 [History Last Taken Unknown] ferrous sulfate 325 mg (65 mg iron) tablet (FeroSul) 325 mg PO DAILY 06/06/22 [History Last Taken Unknown] folic acid 1 mg tablet 1 mg PO DAILY 06/06/22 [History Last Taken Unknown] loperamide 2 mg tablet (Anti-Diarrheal (loperamide)) 2 mg PO Q6H PRN Diarrhea 06/06/22 [History Last Taken Unknown] meclizine 25 mg tablet 25 mg PO TID 06/06/22 [History Last Taken Unknown] naloxone 4 mg/actuation nasal spray 1 spray intranasal Q2-3M PRN Drug Intoxication Symptoms 06/06/22 [History Last Taken Unknown] tizanidine 4 mg tablet 4 mg PO BID 06/06/22 [History Last Taken Unknown] alprazolam 1 mg tablet 1 mg PO QHS 06/07/22 [History Last Taken Unknown] aspirin 81 mg tablet,delayed release 81 mg PO DAILY 06/07/22 [History Last Taken 06/29/22] metoprolol tartrate 25 mg tablet 25 mg PO BID 06/07/22 [History Last Taken Unknown] oxycodone-acetaminophen 5 mg-325 mg tablet (Percocet) 1 tab PO BID PRN pain 06/07/22 [History Last Taken Unknown] Allergy/AdvReac Type Severity Reaction Status Date / Time amitriptyline Allergy Intermediate Other Verified 09/16/22 12:42 lorazepam Allergy Unknown Other Verified 09/16/22 12:42 ciprofloxacin [From Cipro] Allergy Unknown Verified 09/16/22 12:42 escitalopram oxalate Allergy Unknown Verified 09/16/22 12:42 [From Lexapro] heparin Allergy real Verified 09/16/22 12:42 anxious mupirocin [From Bactroban] Allergy Unknown Verified 09/16/22 12:42 trazodone Allergy knocked Verified 09/16/22 12:42 me out adhesive tape AdvReac Rash Verified 09/16/22 12:42 Family History Mother CAD (coronary artery disease) Hypertension Father CAD (coronary artery disease) Brother Myocardial infarction Hypertension Sister Hypertension Other CVA (cerebral vascular accident) Surgical History H/O arthroscopy of right knee History of ankle surgery History of cholecystectomy History of foot surgery History of hernia repair History of hysterectomy History of knee replacement History of left heart catheterization (LHC) (~06/29/22) History of tonsillectomy Presence of coronary angioplasty implant and graft (~02/27/12) Status post total right knee replacement (~12/25/18) Social History household members: spouse current occupational status: retired Smoking Status: Never smoker Electronic Cigarette Use: not used second hand exposure: No alcohol intake: current alcohol intake frequency: holidays/special occasions only substance use type: does not use caffeine: Yes Type: carbonated beverages and tea ROS ROS ED ROS Narrative Denies recent illness. Review of Systems ROS Unobtainable: Denies due to encephalopathy Constitutional Constitutional ED: Denies chills or fever(s) Eyes Eyes: Denies blurry vision ENT ENT ED: Denies ear pain Cardiovascular Cardiovascular: Denies chest pain Respiratory/Chest Respiratory/Chest: Denies cough or dyspnea Gastrointestinal Gastrointestinal: Denies abdominal pain Genitourinary Genitourinary ED: Denies dysuria Musculoskeletal Musculoskeletal: Denies arthralgias Integumentary Denies abscess Neurologic Neurologic: Denies headache(s) Psychiatric Psychiatric: Denies anxiety or depression Endocrine Endocrinology: Denies polydipsia Hematologic/Lymphatic Hematologic/Lymphatic: Denies easy bleeding Allergic/Immunologic Allergic/Immunologic ED: Denies mouth swelling EXAM Physical Exam Narrative Exam Narrative: 4-year-old female vital signs stable afebrile does not look septic toxic. No distress. H EENT exam unremarkable. Neck nontender. Lungs are clear equal symmetrical. Chest wall nontender. Heart regular rhythm rate about 60 no murmur. Chest wall nontender. Abdomen soft nontender. Moving all 4 extremities. She has deformity and tenderness of the right lower leg and ankle. She most likely has a fractured ankle or distal tib-fib. Skin is intact. There is an abrasion anteriorly but no laceration or bleeding. Right knee and hip are nontender left lower extremity is nontender upper extremities are nontender. She is awake and alert. She is able to wiggle her toes. She has normal touch sensation. She does have a DP pulse by Doppler. Const Vital Signs: 09/16/22 12:39 09/16/22 12:43 09/16/22 13:10 Temperature 98.3 F Temperature Source Oral Pulse Rate 55 L 55 L Respiratory Rate 12 16 Respiratory Effort Normal Non-Labored Respiratory Depth Normal Respiratory Pattern Normal Blood Pressure 137/67 H 152/79 H Blood Pressure Mean 90 103 Pulse Ox 96 96 Oxygen Delivery Method Room Air Room Air Room Air 09/16/22 15:00 Temperature Temperature Source Pulse Rate 59 L Respiratory Rate 16 Respiratory Effort Respiratory Depth Respiratory Pattern Blood Pressure 145/78 H Blood Pressure Mean 100 Pulse Ox 95 Oxygen Delivery Method Room Air Positive well nourished, well developed and obese; Negative for cachectic, contractures or unkempt General Appearance ED: well developed; Negative for unkempt, cachectic, contractures or NAD Nutritional Appearance: obese; Negative for cachectic HEENT Reports normocephalic atraumatic; Negative for trauma, contusion, hematoma or tenderness Eyes PERRL and EOMs intact bilaterally General Eye ED: Negative for pale conjunctiva or scleral icterus Neck full ROM, no lymphadenopathy and supple General: Negative for tenderness Chest Wall inspection of chest normal and palpation of chest normal Chest: Negative for other Resp normal respiratory effort, no retractions and clear to auscultation bilaterally Effort and Inspection: Negative for pain with movement Auscultation: Negative for rales, rhonchi or wheezes Cardio regular rate, regular rhythm, S1 normal heart sound, S2 normal heart sound and no murmurs GI non-tender, non-distended and no masses Inspection: Negative for abdominal distention Auscultation: normoactive bowel sounds Palpation: soft; Negative for guarding Back/Spine no CVA tenderness General Back: Negative for CVA tenderness Cervical Spine: Negative for cervical spine tenderness Lumbar Spine / Lower Back: Negative for lumbar spinal tenderness Neuro oriented x3, CN's II-XII intact bilaterally, moves all extremities, no focal motor deficits and no sensory deficits noted Parrish Coma Scale: document GCS findings Spontaneous Obeys Commands Oriented 15 Sensorium / Orientation: alert, oriented to person, oriented to place and oriented to time; Negative for orientation impaired or confused Motor Exam: strength 5/5 throughout Psych mental status grossly normal and thought process normal Appearance: Negative for unkempt Attitude: No agitated Mood & Affect: Negative for depressed, anxious or tearful Skin Skin Narrative: Mild abrasion right anterior ankle. No laceration. General Skin Exam: Negative for other Lesions: no lesions Rashes: no rashes Trauma: abrasion MDM MDM MDM Narrative Medical decision making narrative: 66-year-old female fell as a injury to her right lower leg and ankle most likely a fracture may be a fracture dislocation. Right foot is neurovascularly intact. Skin is intact but there is a minor abrasion. X-rays will be obtained of her right lower leg ankle and foot. Fentanyl for pain. Patient has a distal comminuted tibia fracture. Has a distal fibula fracture just above the prior plate and screws. She also has hardware in her right knee from a left knee prosthesis with a longstem and mid tibia. I discussed all that with the orthopedic physician on-call Dr. Martir Whitaker. He felt that she needed a higher level of care at a larger facility. I discussed this with the patient and her and she will be transferred to one of the [facility]. Patient's been placed in a short leg well-padded posterior splint fabricated out of Ortho glass. She is also been remedicated with additional fentanyl for pain. History & Record Review Discussion w/independent historian: Patient Additional record(s) reviewed:: Prior inpatient record, Prior outpatient record, Prior ED visit and Prior labs Radiography Diagnostic Testing: Clinical Impression(s) from Imaging Studies Ankle X-Ray 09/16/22 13:25 IMPRESSION: Displaced fractures of the distal tibia and fibula superimposed on chronic fractures and postoperative change. Mild subluxation of the right ankle with widening of the ankle mortise. Electronically Signed: Kaity Wallace MD at 14:01 EDT , Foot X-Ray 09/16/22 13:25 IMPRESSION: Acute fractures of the right distal tibia and fibula. Old fractures of the first proximal phalanx and second metatarsal base. Electronically Signed: Kaity Wallace MD at 14:12 EDT , Tibia/Fibula X-Ray 09/16/22 13:25 IMPRESSION: Subluxation of the fibular head. Acute displaced fractures of the right distal fibula and tibia with mild subluxation of the ankle mortise. Electronically Signed: Kaity Wallace MD at 14:14 EDT , Knee X-Ray 09/16/22 15:10 IMPRESSION: No acute fracture or dislocation. Electronically Signed: Joel Stevens MD at 15:24 EDT , Right tib-fib x-ray shows a comminuted distal third tibia fracture. Shows a fracture distal third fibula just above prior hardware for prior right lateral malleolus fracture with a plate and screws. Also old hardware in her right knee from a knee prosthesis. 2 views interpreted by myself and radiologist. Right ankle x-ray all also showed the fractures of the distal third of the tibia and fibula. Interpreted both by the radiologist myself. Right foot x-ray shows no acute abnormalities of the foot itself. All films were interpreted both by myself and the radiologist. Procedures Lower Extremity Splints Lower Extremity Splint: Orthoglass Splint Fabrication: Fabricated Location: Right Discharge Plan Triage Chief Complaint: Fall ED Provider: Deyvi Thompson Dx/Rx/DC Orders Clinical Impression: Fall, Closed fracture of right fibula and tibia, History of right knee joint replacement, History of stroke Prescriptions: No Action clopidogrel 75 mg tablet 75 mg PO DAILY folic acid 1 mg tablet 1 mg PO DAILY famotidine 20 mg tablet 20 mg PO DAILY tizanidine 4 mg tablet 4 mg PO BID meclizine 25 mg tablet 25 mg PO TID ferrous sulfate [FeroSul] 325 mg (65 mg iron) tablet 325 mg PO DAILY loperamide [Anti-Diarrheal (loperamide)] 2 mg tablet 2 mg PO Q6H PRN (Reason: Diarrhea) naloxone 4 mg/actuation spray,non-aerosol 1 spray intranasal Q2-3M PRN (Reason: Drug Intoxication Symptoms) Rx Instructions: spray 1 dose into ONE nostril; alternate nostrils w each dose until help arrives cholecalciferol (vitamin D3) 25 mcg (1,000 unit) capsule 25 mcg PO DAILY amlodipine 10 mg tablet 10 mg PO DAILY donepezil 5 mg tablet 5 mg PO DAILY alprazolam 0.5 mg tablet 0.5 mg PO DAILY oxycodone-acetaminophen [Percocet] 5-325 mg tablet 1 tab PO BID PRN (Reason: pain) aspirin 81 mg tablet,delayed release (DR/EC) 81 mg PO DAILY metoprolol tartrate 25 mg tablet 25 mg PO BID alprazolam 1 mg tablet 1 mg PO QHS atorvastatin 40 MG tablet 40 mg PO QHS polyethylene glycol 3350 17 GM packet 17 g PO DAILY PRN (Reason: Constipation) pregabalin 75 mg capsule 75 mg PO BID lisinopril 20 mg tablet 20 mg PO DAILY acetaminophen 325 mg Tablet 650 mg PO Q6H PRN (Reason: Pain) glimepiride 1 mg Tablet 1 mg PO DAILY sennosides-docusate sodium [Stool Softener-Stimulant Laxat] 8.6-50 mg tablet 1 tab PO DAILY PRN PRN (Reason: Constipation) pantoprazole 40 mg tablet,delayed release (DR/EC) 40 mg PO DAILY acetaminophen 500 mg Tablet 1,000 mg PO Q6H PRN PRN (Reason: Pain Score 1-5) Qty: 0 0RF calcium carbonate 200 mg calcium (500 mg) Tablet,Chewable 1,000 mg PO Q4H PRN PRN (Reason: HEARTBURN OR INDIGESTION) Qty: 0 0RF Biotene Dry Mouth Oral Rinse Mouthwash 15 ml mucous membrane 5X/DAY PRN (Reason: Dry Mouth) Qty: 0 0RF Primary Care Provider: Sudheer Lion Referrals: Sudheer Lion MD [Primary Care Provider] - Disposition Disposition: Acute Care Hospital
[2022-09-16] MEDS: fentaNYL 100 MCG/2 ML Ampul 50 MCG IV ×3 (13:08→16:03)
[2022-09-16 13:10] VITALS: BP 152/79; PULSE 55; RESP 16; O2SAT 96
--- NOTE | 2022-09-16 13:25 | RAD_ITS ---
HISTORY: trauma. Fall, pain, deformity. TECHNIQUE: XR Ankle 2 Views. COMPARISON: 03/17/2021. FINDINGS: BONES : Intramedullary nuvia in the proximal to mid tibial diaphysis. Comminuted fracture of the distal tibia with mild displacement and angulation. Acute oblique fracture of the distal fibular diaphysis with mild lateral displacement. Cortical plate and screw fixation of the distal fibula. Chronic osteochondral lesion of the medial talar dome Generalized osteopenia. JOINTS: Widening of the medial ankle mortise. SOFT TISSUES: Severe soft tissue swelling. Overlying brace. RAD/Ankle 2 Views IMPRESSION: Displaced fractures of the distal tibia and fibula superimposed on chronic fractures and postoperative change. Mild subluxation of the right ankle with widening of the ankle mortise. Electronically Signed: Kaity Wallace MD at 14:01 EDT ,
--- NOTE | 2022-09-16 13:25 | RAD_ITS ---
HISTORY: trauma. TECHNIQUE: XR Foot 2 Views. COMPARISON: 01/18/2022. FINDINGS: BONES : Old fracture of the first proximal phalangeal head. Chronic fracture of the second metatarsal base Acute fractures of the distal fibula and tibia with cortical plate and screw fixation of the fibula more distally. JOINTS: No dislocation in the foot. Degenerative change. SOFT TISSUES: Subcutaneous swelling of the ankle and hindfoot. RAD/Foot 2 Views IMPRESSION: Acute fractures of the right distal tibia and fibula. Old fractures of the first proximal phalanx and second metatarsal base. Electronically Signed: Kaity Wallace MD at 14:12 EDT ,
--- NOTE | 2022-09-16 13:25 | RAD_ITS ---
HISTORY: trauma. TECHNIQUE: XR Tibia/Fibula 2 Views. COMPARISON: Right knee 03/14/2021. FINDINGS: BONES : Old fracture of the proximal to mid fibular diaphysis. Acute oblique fracture of the distal fibular diaphysis with half shaft width lateral displacement. Cortical plate and screw fixation of a chronic nondisplaced distal fibular fracture. Comminuted fracture of the distal tibia with displacement, angulation, and overlap. Osteochondral lesion of the medial talar dome. JOINTS: Superior subluxation of the fibular head relative to the proximal tibia. Right knee long stem arthroplasty in place. Widening of the ankle mortise medially. SOFT TISSUES: Severe soft tissue swelling. RAD/Tibia & Fibula 2 Views IMPRESSION: Subluxation of the fibular head. Acute displaced fractures of the right distal fibula and tibia with mild subluxation of the ankle mortise. Electronically Signed: Kaity Wallace MD at 14:14 EDT ,
--- NOTE | 2022-09-16 14:45 | NURSING ---
DR MARIANA DAVENPORT
[2022-09-16 15:00] VITALS: BP 145/78; PULSE 59; RESP 16; O2SAT 95
--- NOTE | 2022-09-16 15:10 | RAD_ITS ---
STUDY: X-RAY - RIGHT KNEE REASON FOR EXAM: Female, 66 years old. trauma TECHNIQUE: 2 view(s) of the knee. COMPARISON: 12 1 FINDINGS: Normal visualized distal femur. Healed fracture of the proximal shaft of the fibula. Normal proximal tibiofibular articulation. Status post knee arthroplasty with resection of the patella which has been revised when compared with the prior study. . The soft tissue structures are unremarkable. RAD/Knee 1 or 2 Views IMPRESSION: No acute fracture or dislocation. Electronically Signed: Joel Stevens MD at 15:24 EDT ,
--- NOTE | 2022-09-16 15:22 | NURSING ---
CALLED [facility] ABOUT TRANSFER
--- NOTE | 2022-09-16 15:45 | NURSING ---
CALLED [facility], ETA IS 30 MIN
[2022-09-16 16:18] VITALS: PULSE 62; RESP 18; O2SAT 97
== END 2022-09-16 16:26 | disposition short-term general hospital (02) ==
PROVIDERS: Emergency Provider Emergency Medicine; PCP Family Medicine; Visit Provider Emergency Medicine
DX: S82.401A Unspecified fracture of shaft of right fibula, initial encounter for closed fracture (principal); E11.42 Type 2 diabetes mellitus with diabetic polyneuropathy; S82.301A Unspecified fracture of lower end of right tibia, initial encounter for closed fracture; I10 Essential (primary) hypertension; I25.10 Atherosclerotic heart disease of native coronary artery without angina pectoris; E78.5 Hyperlipidemia, unspecified; Z96.653 Presence of artificial knee joint, bilateral; Z95.5 Presence of coronary angioplasty implant and graft; E66.9 Obesity, unspecified; Z86.73 Personal history of transient ischemic attack (TIA), and cerebral infarction without residual deficits; W01.0XXA Fall on same level from slipping, tripping and stumbling without subsequent striking against object, initial encounter
CPT/HCPCS: 51702; 73560; 73590; 73600; 73620; 96374; 96376; 99285; J7030; A4216

== ENCOUNTER 2022-11-21 13:28 | Outpatient (RCR) | payer MEDICARE, OTHER, SELFPAY ==
--- NOTE | 2022-11-21 15:12 | HP.PTEVAL ---
Patient's Visit Information Visit Information Visit Information: MACKENZIE AKHTAR is a 67 year old F referred to Physical Therapy by RIKKI HUMPHREY with a diagnosis of R LE tib/fib Fx 09/18/22. Date of Evaluation: 11/21/22 Physical Therapist: Jose Oneal, PT, ATC Visit Plan Frequency: 2x /Week Duration: 4-6 Weeks Plan: Begin aquatic therapy to focus on R LE stretching, strengthening, and core stab ex's Subjective Subjective: DOI: 09/16/22, DOS: 09/18/22. Pt reports she fell after slipping on water in her kitchen which resulted in a R LE tib/fib fracture. Pt reports she had the injury on a Sunday and surgery on the following Sunday. Pt reports she had a plate and multiple screws placed into her tibia. Pt reports she was in the hospital for 5 days, but had no PT secondary to being [facility] for 2 full months. Pt reports she is able to stand today, but she is not able to FWB on R LE at this time. Pt notes she is supposed to come here and get aquatic therapy, but is concerned that she still has part of her incision which is not healed. Pt reports she has abeen either sitting in a chair, or in a WC since the DOI, and notes she has become weak all the way around. reports no tingling or numbness in L LE today, but notes she did have it in the past. R LE pain is 0/10 at rest, 5/10 at worst (when she walks on it) Pain R LE: Pain Intensity (Out of 10): 0 Pain Intensity Range: 5 Objective Objective: Neuro: B LE sensation is WNL to light touch. MMT: R LE strength is grossly 3-/5 to 4-/5. L LE is 5/5 throughout. Gait: Pt is able to ambulate 66 feet with WW until needing to rest. Balance/Special Test Scores Lower Extremity Functional Score: 20 Goals Goal 1:: Decrease R LE pain x 50% to aid with sleep Goal Time Frame: 4-6 Weeks Goal 2:: Increase R LE strength x 1 grade to aid with ambulation Goal Time Frame: 4-6 Weeks Goal 3:: Pt will ambulate greater than 200 feet with WW to aid with community ambulation Goal Time Frame: 4-6 Weeks Goal 4:: I with HEP Goal Time Frame: 4-6 Weeks Rehabilitation Potential Physical Therapy Diagnosis: Pt has R LE pain and weakness secondary to R LE Fx. Rehabilitation Potential: Good Anticipated Interventions Patient/Client Instruction: Educate patient on: Condition and Plan of Care For the Purpose of:: To improve self management Therapeutic Exercise to Include: Strength training, Endurance training, Body mechanics, Flexibilty training, In an aquatic setting, Active ROM and Dynamic Lumbar Stabilization For the Purpose of:: To decrease pain, To increase ROM and To improve muscle performance and motor function Cryotherapy (ice pack, ice massage): Yes For the Purpose of:: To decrease pain Text: Thank you for the opportunity to evaluate your patient. For Medicare and Medicare HMO plans, please review the plan of care and approve it. It will need to be FAXED BACK to us at [phone] for Medicare purposes. For Medicare only, by signing this I certify the plan of care. Please let me know if there are questions or concerns regarding this plan of care. Physician Signature: Date:
--- NOTE | 2023-03-20 10:00 | HP.PT.NRP ---
Patient Information Patient Information: MACKENZIE AKHTAR was seen in my office for initial evaluation on 11/21/22. The following Plan of Care was established for this patient: POC Established Initial Frequency: 2x /Week Initial Duration: 4-6 Weeks Anticipated Interventions Patient/Client Instruction: Educate patient on: Condition and Plan of Care For the Purpose of:: To improve self management Therapeutic Exercise to Include: Strength training, Endurance training, Body mechanics, Flexibilty training, In an aquatic setting, Active ROM and Dynamic Lumbar Stabilization For the Purpose of:: To decrease pain, To increase ROM and To improve muscle performance and motor function Cryotherapy (ice pack, ice massage): Yes For the Purpose of:: To decrease pain Last Seen Last Seen: This patient was last seen in our office . Pertinent comments regarding their Physical therapy will appear below: Pt was evaluated for L knee pain on the date of 11/21/22. Pt has not returned through todays date At this point I will be discontinuing this patient from physical therapy. I would be happy to see this patient again in the future if found appropriate by the physician. Thank you! Jose Oneal, PT, ATC Balance/Gait/Functional tests Balance/Special Test Scores Lower Extremity Functional Score: 20
== END 2022-11-21 19:00 | disposition home or self-care (01) ==
LOC: PT 13:28
PROVIDERS: PCP Family Medicine
DX: S82.391D Other fracture of lower end of right tibia, subsequent encounter for closed fracture with routine healing (principal); S82.421D Displaced transverse fracture of shaft of right fibula, subsequent encounter for closed fracture with routine healing
CPT/HCPCS: 97161

== ENCOUNTER → 2022-12-07 | Outpatient (CLI) | payer MEDICARE, OTHER, SELFPAY ==
[2022-12-07 15:50] LABS: ALB/GLOB Ratio 0.8 RATIO (0.9-2.4); AST(SGOT) 21 U/L (15-37); Alanine Aminotransfer ALT/SGPT 46 U/L (13-56); Albumin, Serum 3.3 g/dL (3.2-5.0); Alkaline Phosphatase 228 U/L (45-117); Anion Gap 6 (5-15); BUN 22 mg/dL (7-18); BUN/Creat Ratio 25.4 RATIO (10-20); Calcium,Total 9.5 mg/dL (8.5-10.1); Chloride 110 mmol/L (98-107); Creatinine, Serum 0.86 mg/dL (0.55-1.02); EST Glomerular Filtration Rate 69 mL/min (>60); Est Glom Filt Rate - Afr Amer 84 mL/min (>60); Glucose 123 mg/dL (74-106); Potassium 4.3 mmol/L (3.5-5.1); Protein, Total 7.3 g/dL (6.4-8.2); Sodium Level 138 mmol/L (136-145)
== END | disposition home or self-care (01) ==
LOC: MFPLAB 10:27
PROVIDERS: PCP Family Medicine; Visit Provider Family Medicine
DX: K52.9 Noninfective gastroenteritis and colitis, unspecified (principal)
CPT/HCPCS: 36415; 80053

== ENCOUNTER → 2022-12-28 | Outpatient (CLI) | payer MEDICARE, OTHER, SELFPAY | END | disposition home or self-care (01) | PROVIDERS: PCP Family Medicine; Visit Provider Family Medicine | DX: R19.5 Other fecal abnormalities (principal) | CPT/HCPCS: 87493 ==

== ENCOUNTER → 2023-02-02 | Outpatient (CLI) | payer MEDICARE, OTHER, SELFPAY ==
[2023-02-02 18:14] LABS: Anion Gap 6 (5-15); BUN 16 mg/dL (7-18); BUN/Creat Ratio 17.2 RATIO (10-20); Calcium,Total 9.4 mg/dL (8.5-10.1); Chloride 109 mmol/L (98-107); Cholesterol 132 mg/dL (200); Creatinine, Serum 0.93 mg/dL (0.55-1.02); EST Glomerular Filtration Rate 64 mL/min (>60); Est Glom Filt Rate - Afr Amer 77 mL/min (>60); Glucose 105 mg/dL (74-106); High Density Lipoprotein 54 mg/dL; Potassium 4.2 mmol/L (3.5-5.1); Sodium Level 139 mmol/L (136-145); Triglycerides 201 mg/dL; Very Low Density Lipoprotein 40 mg/dL (5-40)
[2023-02-02 18:16] LABS: Microalbumin,Random Urine 46.1 mg/L (NO RANGE EST.); Microalbumin:Creatinine Ratio 59.3 mg/g CRE (<30 mg/g CRE)
== END | disposition home or self-care (01) ==
LOC: MTLAB 14:53
PROVIDERS: PCP Family Medicine; Referring Provider Family Medicine; Visit Provider Family Medicine
DX: E11.9 Type 2 diabetes mellitus without complications (principal)
CPT/HCPCS: 36415; 80048; 80061; 82043; 82570

== ENCOUNTER → 2023-03-21 | Outpatient (CLI) | payer MEDICARE, OTHER, SELFPAY ==
[2023-03-23 17:07] LABS: QNTFERON TB Mitogen Value > 10.00 IU/mL (.); QNTFERON TB Nil Value 0.01 IU/mL (.); QNTFERON TB1+ Ag Value 0.01 IU/mL (.); QNTFERON TB2+ Ag Value 0.01 IU/mL (.); QNTIFERON TB Positive Criteria Negative (Negative)
== END | disposition home or self-care (01) ==
LOC: MTLAB 12:46
PROVIDERS: PCP Family Medicine; Referring Provider Dermatology; Visit Provider Dermatology
DX: C44.622 Squamous cell carcinoma of skin of right upper limb, including shoulder (principal); L40.0 Psoriasis vulgaris; D17.22 Benign lipomatous neoplasm of skin and subcutaneous tissue of left arm
CPT/HCPCS: 36415; 86480

== ENCOUNTER → 2023-07-18 | Outpatient (CLI) | payer MEDICARE, OTHER, SELFPAY ==
[2023-07-21 00:07] LABS: Pancreatic Elastase, Fecal 310 (>200)
[2023-07-26 20:07] LABS: Calprotectin, Stool 17 ug/g (0-120); Fats, Neutral Normal (.); Fats, Total Normal (.)
== END | disposition home or self-care (01) ==
LOC: LABSPEC 10:57
PROVIDERS: PCP Family Medicine; Referring Provider Internal Medicine Gastroenterology; Visit Provider Internal Medicine Gastroenterology
DX: R19.7 Diarrhea, unspecified (principal)
CPT/HCPCS: 82653; 82705; 83993

== ENCOUNTER → 2023-08-27 | Outpatient (CLI) | payer MEDICARE, OTHER, SELFPAY ==
[2023-08-27 18:46] LABS: Anion Gap 7 (5-15); BUN 17 mg/dL (7-18); Calcium,Total 10.1 mg/dL (8.5-10.1); Chloride 106 mmol/L (98-107); Cholesterol 167 mg/dL (200); EST Glomerular Filtration Rate 58 mL/min (>60); Est Glom Filt Rate - Afr Amer 71 mL/min (>60); Glucose 86 mg/dL (74-106); High Density Lipoprotein 61 mg/dL; Potassium 4.4 mmol/L (3.5-5.1); Sodium Level 139 mmol/L (136-145); Thyroid Stim Hormone (TSH) 2.26 uIU/mL (0.358-3.74); Triglycerides 236 mg/dL; Very Low Density Lipoprotein 47 mg/dL (5-40)
[2023-08-27 18:47] LABS: Hemoglobin A1c 5.9 % (3.8-5.6)
== END | disposition home or self-care (01) ==
PROVIDERS: PCP Family Medicine; Referring Provider Internal Medicine Cardiovascular Disease; Visit Provider Internal Medicine Cardiovascular Disease
DX: Z00.00 Encounter for general adult medical examination without abnormal findings (principal); E11.9 Type 2 diabetes mellitus without complications; I25.10 Atherosclerotic heart disease of native coronary artery without angina pectoris
CPT/HCPCS: 36415; 80048; 80061; 83036; 84443

== ENCOUNTER → 2023-10-04 | Outpatient (CLI) | payer MEDICARE, OTHER, SELFPAY ==
--- NOTE | 2023-10-04 12:59 | BD_ITS ---
STUDY: DUAL ENERGY X-RAY ABSORPTIOMETRY / DXA REASON FOR EXAM: Female, 67 years old. V76.12ScreeningBONE DENSITY REASON FOR EXAM TECHNIQUE: Bone Mineral Density (BMD) measurements of lumbar spine and bilateral hips were obtained. COMPARISON: None. FINDINGS: Lumbar Spine (L1-L4): g/cm2 (0.918) / T-score (-1.7) / Z-score (0.6) Findings are suggestive of osteopenia with a moderate fracture risk. Left Femur Total: g/cm2 (0.970) / T-score (0.2) / Z-score (1.7) Left Femoral Neck: g/cm2 (0.789) / T-score (-0.5) / Z-score (1.3) Right Femur Total: g/cm2 (0.775) / T-score (-1.4) / Z-score (0.1) Right Femoral Neck: g/cm2 (0.504) / T-score (-3.1) / Z-score (-1.3) BD/Dexa Bone Density Study IMPRESSION: The patient is considered osteoporotic as outlined below according to World Chidi Organization (WHO) criteria with a high fracture risk. Reference Information: The T-score is the number of standard deviations above or below the standard which is normal for young adults at their peak bone mineral density. The World Health Organization (WHO) interprets the T-scores as follows: Above -1 Normal bone density Between -1 and -2.5 Osteopenia Equal to / or below -2.5 Osteoporosis As a practical clinical guideline, osteopenia may be graded as follows: Mild -1 through -1.5 Moderate -1.6 through -2.0 Severe -2.1 through -2.4 The Z-score is the number of standard deviations above or below age-matched controls. A Z-score of less than -1.5 would be considered abnormal. References: 1. NIH Osteoporosis and Related Bone Diseases www osteo.org 2. International Society for Clinical Densitometry www iscd.org 3. National Osteoporosis Foundation www nof.org Electronically Signed: Joel Stevens MD at 12:26 EDT ,
--- NOTE | 2023-10-04 12:59 | BI_ITS ---
MAMMOGRAPHY - BILATERAL SCREENING 3-D TOMOSYNTHESIS REASON FOR EXAM: Female, 67 years old. screening PERTINENT HISTORY: No significant family history. TECHNIQUE: 2-D mammograms and 3-D Tomosynthesis of the breast (s) were performed. CAD was performed. COMPARISON: 04/10/2018 FINDINGS: The breast composition is composed of scattered fibroglandular density. Scattered benign calcifications are seen. No dense spiculated masses or suspicious microcalcifications are identified. No architectural distortion is identified. There is no skin thickening or retraction. There has been no significant change since the prior study. BI/SCRN MAMM (CAD)W/YADIEL BILAT IMPRESSION: No mammographic signs of malignancy. Routine yearly mammograms recommended. ASSESSMENT CATEGORY: BIRADS Category 1: Negative. A letter regarding these results will be sent to the patient by the facility within 30 days. FOLLOW UP RECOMMENDATION: Yearly follow up mammogram recommended. (A) Approximately 10% of breast cancers are not detected by mammography. A normal mammogram should not delay biopsy of a clinically suspicious abnormality. Electronically Signed: Joel Stevens MD at 13:21 EDT ,
== END | disposition home or self-care (01) ==
LOC: OPBD 12:59
PROVIDERS: PCP Family Medicine; Referring Provider Family Medicine; Visit Provider Family Medicine
DX: Z12.31 Encounter for screening mammogram for malignant neoplasm of breast (principal); N95.9 Unspecified menopausal and perimenopausal disorder
CPT/HCPCS: 77063; 77067; 77080

== ENCOUNTER → 2023-12-20 | Outpatient (CLI) | payer MEDICARE, OTHER, SELFPAY | END | disposition home or self-care (01) | LOC: PSN 12:16 | PROVIDERS: PCP Family Medicine; Referring Provider Nurse Practitioner Gerontology; Visit Provider Nurse Practitioner Gerontology | DX: I47.10 Supraventricular tachycardia, unspecified (principal); I47.29 Other ventricular tachycardia; R00.1 Bradycardia, unspecified | CPT/HCPCS: 93225; 93226 ==

== ENCOUNTER → 2024-05-07 | Outpatient (CLI) | payer MEDICARE, OTHER, SELFPAY ==
[2024-05-07 18:58] LABS: ALB/GLOB Ratio 0.8 RATIO (0.9-2.4); AST(SGOT) 44 U/L (15-37); Alanine Aminotransfer ALT/SGPT 110 U/L (13-56); Albumin, Serum 3.3 g/dL (3.2-5.0); Alkaline Phosphatase 210 U/L (45-117); Anion Gap 5 (5-15); BUN 13 mg/dL (7-18); BUN/Creat Ratio 10.8 RATIO (10-20); Calcium,Total 9.6 mg/dL (8.5-10.1); Chloride 106 mmol/L (98-107); Cholesterol 152 mg/dL (200); EST Glomerular Filtration Rate 47 mL/min (>60); Est Glom Filt Rate - Afr Amer 57 mL/min (>60); Glucose 92 mg/dL (74-106); High Density Lipoprotein 63 mg/dL; Potassium 4.9 mmol/L (3.5-5.1); Protein, Total 7.3 g/dL (6.4-8.2); Sodium Level 139 mmol/L (136-145); Triglycerides 195 mg/dL; Very Low Density Lipoprotein 39 mg/dL (5-40)
[2024-05-07 19:36] LABS: Hemoglobin A1c 6.1 % (3.8-5.6)
[2024-05-07 20:01] LABS: Protein, Urine (Random) 42.2 mg/dL (<11.9); Protein:Creat Ratio 281 mg/g CRE (0-200)
== END | disposition home or self-care (01) ==
LOC: MFPLAB 14:12
PROVIDERS: PCP Family Medicine; Referring Provider Family Medicine; Visit Provider Family Medicine
DX: E11.9 Type 2 diabetes mellitus without complications (principal)
CPT/HCPCS: 36415; 80053; 80061; 82570; 83036; 84156

== ENCOUNTER → 2024-05-13 | Outpatient (CLI) | payer MEDICARE, OTHER, SELFPAY | END | disposition home or self-care (01) | PROVIDERS: PCP Family Medicine; Referring Provider Family Medicine; Visit Provider Family Medicine | DX: R19.7 Diarrhea, unspecified (principal) | CPT/HCPCS: 87493 ==

== ENCOUNTER → 2024-06-19 | Outpatient (CLI) | payer MEDICARE, OTHER, SELFPAY ==
[2024-06-19 19:40] LABS: Luteinizing Hormone 31.6 mIU/mL
[2024-06-25 00:07] LABS: Estrogen, Total, Serum 69 pg/mL (40-244)
== END | disposition home or self-care (01) ==
LOC: MTLAB 15:39
PROVIDERS: PCP Family Medicine; Referring Provider Family Medicine; Visit Provider Family Medicine
DX: R23.2 Flushing (principal)
CPT/HCPCS: 36415; 82672; 83001; 83002; 84443

== ENCOUNTER 2024-06-26 12:30 | Outpatient (RCR) | payer MEDICARE, OTHER, SELFPAY ==
--- NOTE | 2024-03-12 07:22 | HP.PTEVAL ---
Patient's Visit Information Visit Information Visit Information: MACKENZIE AKHTAR is a 68 year old F referred to Physical Therapy by Dr. Sudheer Lion MD with a diagnosis of Hx of falls. Date of Evaluation: 03/11/24 Physical Therapist: Jose Oneal, PT, ATC Visit Plan Frequency: 2-3x /Week Duration: 4-6 Weeks Plan: R LE stretching and strengthening, balance and proprio, gait training, nustep, and HEP Subjective Subjective: Pt reports she is here today secondary to experiencing so many falls. Pt notes she has fallen once yesterday and once today. Pt reports she has had 10 surgeries on her R knee secondary to a TKA that became infected. Pt reports she has not been able to walk good ever since this. Pt reports she uses a walker at home, and even with that she has fallen several times. Pt reports she3 has good sensation in her L LE, but is numb on the R foot most of the time secondary to peripheral neuropathy. Pt reports she really doesn't walk at home, but more or less uses her walker to perform transfers from bed to chair to toilet, etc..Pt denies getting dizzy or light headed at this time. Pt reports both of her legs are weak, which is her major problem. Pt reports no pain at this time. Objective Objective: Neuro: B LE sensation is WNL to light touch MMT: R knee flex= 21, ext= 5 #F; L knee flex= 28, ext= 33 #F ROM: R knee 0-25-90 degrees; L knee 0-115 transfers: Pt is SBA with all sit to stand transfers Gait: Pt is unable to ambulate today Balance/Special Test Scores Lower Extremity Functional Score: 8 Goals Goal 1:: Increase R knee strength x 5#F to aid with sit to stand transfers Goal Time Frame: 4-6 Weeks Goal 2:: Pt will be able to ambulate 50 feet with WW and CGAx1 to aid with I at home Goal Time Frame: 4-6 Weeks Goal 3:: Pt will perform sit to stand transfers I with no difficulty Goal Time Frame: 4-6 Weeks Goal 4:: I with HEP Goal Time Frame: 4-6 Weeks Rehabilitation Potential Physical Therapy Diagnosis: Pt has R knee weakness, limited ROM, and difficulty with transfers secondary to debilitation Rehabilitation Potential: Good Anticipated Interventions Patient/Client Instruction: Educate patient on: Condition and Plan of Care For the Purpose of:: To improve self management Therapeutic Exercise to Include: Strength training, Endurance training, Balance training, Flexibilty training, Gait and locomotor training, Active ROM and Dynamic Lumbar Stabilization For the Purpose of:: To decrease pain, To increase ROM and To improve muscle performance and motor function Text: Thank you for the opportunity to evaluate your patient. For Medicare and Medicare HMO plans, please review the plan of care and approve it. It will need to be FAXED BACK to us at [phone] for Medicare purposes. For Medicare only, by signing this I certify the plan of care. Please let me know if there are questions or concerns regarding this plan of care. Physician Signature: Date:
--- NOTE | 2024-09-02 16:15 | HP.PT.NRP ---
Patient Information Patient Information: MACKENZIE AKHTAR was seen in my office for initial evaluation on 03/11/24. The following Plan of Care was established for this patient: POC Established Initial Frequency: 2-3x /Week Initial Duration: 4-6 Weeks Anticipated Interventions Patient/Client Instruction: Educate patient on: Condition and Plan of Care For the Purpose of:: To improve self management Therapeutic Exercise to Include: Strength training, Endurance training, Balance training, Flexibilty training, Gait and locomotor training, Active ROM and Dynamic Lumbar Stabilization For the Purpose of:: To decrease pain, To increase ROM and To improve muscle performance and motor function Last Seen Last Seen: This patient was last seen in our office . Pertinent comments regarding their Physical therapy will appear below: Pt has not returned to [facility] is greater than 30 days and is discharged at this time. At this point I will be discontinuing this patient from physical therapy. I would be happy to see this patient again in the future if found appropriate by the physician. Thank you! Jose Oneal, PT, ATC Balance/Gait/Functional tests Balance/Special Test Scores Lower Extremity Functional Score: 8
== END 2024-06-26 19:00 | disposition home or self-care (01) ==
LOC: PT 12:30
PROVIDERS: PCP Family Medicine; Visit Provider Family Medicine
DX: Z91.81 History of falling (principal)
CPT/HCPCS: 97110; 97116; 97161; 97530

== ENCOUNTER 2024-10-02 15:03 | Inpatient (IN) | payer MEDICARE, OTHER, SELFPAY ==
[2024-10-02] VITALS (10 sets, daily range): BP systolic 133–145; BP diastolic 45–84; PULSE 68–74; RESP 16–20; TEMP 36.6–37.4; O2SAT 88–99; BMI 49.6; BMI 50.0
[2024-10-02 16:06] LABS: Absolute Lymphocyte Count 0.89 X10^3/uL (0.83-4.51); Absolute Neutrophil Count 18.3 X10^3/uL (2.0-7.7); Basophil# 0.11 X10^3/uL; Basophil% 0.5 % (0-1); Eosinophil# 0.07 X10^3/uL; Eosinophils% 0.3 % (0-5); Hematocrit 42.4 % (37-47); Hemoglobin 13.7 g/dL (12.0-15.0); Lymphocyte # 0.89 X10^3/ul (0.83-4.51); Lymphocyte % 4.3 % (19-41); Mean Corp Hgb Conc 32.3 g/dL (32-36); Mean Corpuscular Hgb 29.2 pg (27.0-32.0); Mean Corpuscular Volume 90.4 fL (81-99); Mean Platelet Vol. 10.6 fl (6.2-12.0); Monocyte# 1.27 X10^3/uL; Monocyte% 6.1 % (0-10); NRBC Flagged by Analyzer 0 % (0-5); Neutrophil # 18.27 X10^3/uL (2.7-7.7); Neutrophil % 87.6 % (47-70); Platelet Count 214 K/mm3 (150-450); RBC Distribution Width CV 14.1 % (11.6-14.6); RBC Distribution Width SD 46.6 fl (35.1-43.9); Red Blood Count 4.69 M/mm3 (4.2-5.4); White Blood Count 20.9 K/mm3 (4.4-11.0)
[2024-10-02 16:16] LABS: Mucous, Urine 0 SEEN /hpf (<or=2+)
[2024-10-02 16:29] LABS: Glucose, Dipstick Normal (Normal); Ketone-Dipstick Negative (Negative); Leukocyte Esterase-Dipstick 500 /ul (Negative); Nitrite-Dipstick Positive (Negative); Occult Blood-Urine 10 /ul (Negative); Protein-Dipstick 30 mg/dl (Negative); Urine Bilirubin Dipstick Negative (Negative); Urine Urobilinogen Normal (Normal)
[2024-10-02 16:32] LABS: Color, Urine Yellow (Yellow); Urine Clarity Cloudy (Clear)
[2024-10-02 16:38] LABS: ALB/GLOB Ratio 1.2 RATIO (0.9-2.4); AST(SGOT) 22 U/L (<=31); Alanine Aminotransfer ALT/SGPT 19 U/L (<=34); Albumin, Serum 3.9 g/dL (3.4-4.8); Alkaline Phosphatase 143 U/L (35-104); Anion Gap 13 (5-15); BUN 18 mg/dL (4-19); BUN/Creat Ratio 14.9 RATIO (10-20); Calcium,Total 9.4 mg/dL (7.6-11.0); Carbon Dioxide 23.5 mmol/L (21.0-32.0); Chloride 102 mmol/L (98-108); Creatinine, Serum 1.21 mg/dL (0.70-1.20); EST Glomerular Filtration Rate 48 (>60); Estimated Creatinine Clearance 54.19 ml/min (50-250); Globulin 3.2 g/dL (2.2-4.2); Glucose 135 mg/dL (70-99); Potassium 4.4 mmol/L (3.3-5.1); Sodium Level 139 mmol/L (133-145); Total Bilirubin 0.56 mg/dL (0.00-1.30)
[2024-10-02] MEDS: Acetaminophen 325 MG Tablet 650 MG PO (17:18)
[2024-10-02 17:29] LABS: Bacteria 4+ /hpf (None Seen); White Blood Cells 25-50 SEEN /hpf (0-5)
[2024-10-02 17:30] LABS: Red Blood Cells-Urine 0-5 SEEN /hpf (0-5); Squamous Epithelial Cells - UA 0-5 SEEN /hpf (5-10)
[2024-10-02 17:55] LABS: International Normalized Ratio 1.3; Prothrombin Time (Protime)PT. 16.5 SECONDS (11.7-14.9)
[2024-10-02 18:05] LABS: Lactic Acid 1.7 mmol/L (0.0-2.0)
[2024-10-02 18:07] LABS: CPK Total, Creatine Kinase 120 U/L (24-195)
[2024-10-02] MEDS: Ceftriaxone 1 GM/50 ML BAG IV (18:24)
[2024-10-02] MEDS: Azithromycin 500 MG in 0.9% Normal Saline (250mL Bag) 250 ML 255 MG IV (19:05)
[2024-10-02] MEDS: CLARIFY ORDER 1 EACH NOTE (20:53)
[2024-10-02] MEDS: 0.9% Normal Saline (1000mL) 1,000 ML 100 ML IV (20:53)
[2024-10-02] MEDS: Pregabalin 50 MG Capsule 100 MG PO (23:15)
[2024-10-02] MEDS: ALPRAZolam 0.5 MG Tablet 1 MG PO (23:15)
[2024-10-02] MEDS: QUEtiapine 25 MG Tablet 50 MG PO (23:15)
[2024-10-02] MEDS: Metoprolol Tartrate 50 MG Tablet PO (23:15)
[2024-10-02] MEDS: Nortriptyline 25 MG Capsule 100 MG PO (23:15)
[2024-10-02] MEDS: Loperamide 2 MG Capsule 4 MG PO (23:15)
[2024-10-02] MEDS: Atorvastatin Calcium 40 MG Tablet PO (23:15)
[2024-10-02] MEDS: Clopidogrel Bisulfate 75 MG Tablet PO (23:16)
[2024-10-02] MEDS: Nystatin Powder 15gm Bottle 1 APPLIC TOPICAL (23:21)
[2024-10-03] VITALS (7 sets, daily range): BP systolic 106–122; BP diastolic 43–66; PULSE 65–81; RESP 15–18; TEMP 36.8–38.1; O2SAT 91–96; BMI 50.3
[2024-10-03 00:14] LABS: Bedside Glucose 115 mg/dL (74-106)
[2024-10-03] MEDS: Acetaminophen 325 MG Tablet 650 MG PO (06:36)
[2024-10-03] MEDS: Pregabalin 50 MG Capsule 100 MG PO ×3 (06:36→21:54)
[2024-10-03 06:50] LABS: Absolute Lymphocyte Count 1.31 X10^3/uL (0.83-4.51); Absolute Neutrophil Count 17.8 X10^3/uL (2.0-7.7); Basophil% 0.5 % (0-1); Eosinophil# 0.36 X10^3/uL; Eosinophils% 1.7 % (0-5); Hematocrit 37.9 % (37-47); Hemoglobin 12.1 g/dL (12.0-15.0); Lymphocyte # 1.31 X10^3/ul (0.83-4.51); Lymphocyte % 6.1 % (19-41); Mean Corp Hgb Conc 31.9 g/dL (32-36); Mean Corpuscular Hgb 29.2 pg (27.0-32.0); Mean Corpuscular Volume 91.5 fL (81-99); Mean Platelet Vol. 10.9 fl (6.2-12.0); Monocyte# 1.53 X10^3/uL; Monocyte% 7.2 % (0-10); NRBC Flagged by Analyzer 0 % (0-5); Neutrophil # 17.79 X10^3/uL (2.7-7.7); Neutrophil % 83.5 % (47-70); POSITIVE DIFFERENTIAL YES; Platelet Count 166 K/mm3 (150-450); RBC Distribution Width CV 14.1 % (11.6-14.6); RBC Distribution Width SD 47.7 fl (35.1-43.9); Red Blood Count 4.14 M/mm3 (4.2-5.4); White Blood Count 21.3 K/mm3 (4.4-11.0)
[2024-10-03 07:02] LABS: Bedside Glucose 110 mg/dL (74-106)
[2024-10-03 07:16] LABS: Differential Indicated SCAN CRITERIA MET
[2024-10-03 07:29] LABS: ALB/GLOB Ratio 0.9 RATIO (0.9-2.4); AST(SGOT) 23 U/L (<=31); Alanine Aminotransfer ALT/SGPT 15 U/L (<=34); Alkaline Phosphatase 129 U/L (35-104); Anion Gap 13 (5-15); BUN 16 mg/dL (4-19); BUN/Creat Ratio 16.1 RATIO (10-20); Calcium,Total 8.7 mg/dL (7.6-11.0); Carbon Dioxide 19.5 mmol/L (21.0-32.0); Chloride 103 mmol/L (98-108); Creatinine, Serum 1.01 mg/dL (0.70-1.20); EST Glomerular Filtration Rate 60 (>60); Estimated Creatinine Clearance 65.21 ml/min (50-250); Globulin 3.3 g/dL (2.2-4.2); Glucose 89 mg/dL (70-99); Potassium 4.6 mmol/L (3.3-5.1); Protein, Total 6.2 g/dL (5.9-8.4); Sodium Level 136 mmol/L (133-145); Total Bilirubin 0.49 mg/dL (0.00-1.30)
[2024-10-03] MEDS: DULoxetine Hcl 60 MG Capsule PO (07:50)
[2024-10-03] MEDS: Metoprolol Tartrate 50 MG Tablet PO (07:50)
[2024-10-03] MEDS: Ferrous Sulfate 325 MG Tablet PO ×3 (07:50→17:11)
[2024-10-03] MEDS: Aspirin E.C. 81 MG Tablet PO (07:50)
[2024-10-03] MEDS: Enoxaparin 40 MG/0.4 ML Syringe SC (07:50)
[2024-10-03] MEDS: Nystatin Powder 15gm Bottle 1 APPLIC TOPICAL ×2 (07:51→22:10)
[2024-10-03] MEDS: amLODIPine 10 MG Tablet PO (07:51)
[2024-10-03] MEDS: Famotidine 20 MG Tablet PO (07:52)
[2024-10-03] MEDS: Lisinopril 20 MG Tablet PO (07:52)
[2024-10-03] MEDS: Pantoprazole Sodium 40 MG Tablet PO (07:52)
[2024-10-03] MEDS: Ceftriaxone 1 GM/50 ML BAG IV (08:02)
[2024-10-03] MEDS: Glucerna Shake 120 ML LIQUID PO (08:02)
[2024-10-03 08:30] LABS: Platelet Estimate A (ADEQ)
[2024-10-03] MEDS: Azithromycin 500 MG in 0.9% Normal Saline (250mL Bag) 250 ML 255 MG IV (09:30)
[2024-10-03] MEDS: Clopidogrel Bisulfate 75 MG Tablet PO (09:35)
[2024-10-03 11:45] LABS: Bedside Glucose 139 mg/dL (74-106)
[2024-10-03] MEDS: ALPRAZolam 0.25 MG Tablet PO (15:12)
[2024-10-03] MEDS: Furosemide 40 MG/4 ML Vial IV (19:03)
[2024-10-03] MEDS: 0.9% Saline Lock 10 ML Syringe IV (19:04)
[2024-10-03] MEDS: Spironolactone 25 MG Tablet 12.5 MG PO (19:04)
[2024-10-03 21:27] LABS: Bedside Glucose 113 mg/dL (74-106)
[2024-10-03] MEDS: ALPRAZolam 0.5 MG Tablet PO (21:55)
[2024-10-03] MEDS: Loperamide 2 MG Capsule 4 MG PO (21:55)
[2024-10-03] MEDS: QUEtiapine 25 MG Tablet 50 MG PO (21:55)
[2024-10-03] MEDS: Nortriptyline 25 MG Capsule 100 MG PO (21:56)
[2024-10-03] MEDS: Atorvastatin Calcium 40 MG Tablet PO (22:11)
[2024-10-03 23:08] LABS: Bedside Glucose 127 mg/dL (74-106)
[2024-10-04] VITALS (12 sets, daily range): BP systolic 102–141; BP diastolic 43–64; PULSE 64–85; RESP 16–18; TEMP 36.4–37.2; O2SAT 84–97; BMI 50.3
[2024-10-04 03:46] LABS: Bedside Glucose 100 mg/dL (74-106)
[2024-10-04 04:33] LABS: Allen Test Positive; Base Excess 3 mmol/L (-2 to +2); Bicarbonate 27.4 mmol/L (22-26); Blood Gas Specimen Type ART; Mode Not entered; O2 Delivery Device Cannula; PO2 78 mmHG (75-100); SITE R Radial; SO2 96 % (95-99); Total Carbon Dioxide 29 mmol/L; pCO2 42.6 mmHg (35-45); pH 7.42 (7.35-7.45)
[2024-10-04 06:12] LABS: Absolute Lymphocyte Count 1.38 X10^3/uL (0.83-4.51); Absolute Neutrophil Count 15.6 X10^3/uL (2.0-7.7); Basophil% 0.5 % (0-1); Eosinophil# 0.34 X10^3/uL; Eosinophils% 1.8 % (0-5); Hematocrit 37.5 % (37-47); Hemoglobin 12.3 g/dL (12.0-15.0); Lymphocyte # 1.38 X10^3/ul (0.83-4.51); Lymphocyte % 7.2 % (19-41); Mean Corp Hgb Conc 32.8 g/dL (32-36); Mean Corpuscular Hgb 29.4 pg (27.0-32.0); Mean Corpuscular Volume 89.7 fL (81-99); Mean Platelet Vol. 10.8 fl (6.2-12.0); Monocyte# 1.49 X10^3/uL; Monocyte% 7.8 % (0-10); NRBC Flagged by Analyzer 0 % (0-5); Neutrophil # 15.58 X10^3/uL (2.7-7.7); Neutrophil % 81.6 % (47-70); Platelet Count 193 K/mm3 (150-450); RBC Distribution Width CV 14.2 % (11.6-14.6); Red Blood Count 4.18 M/mm3 (4.2-5.4); White Blood Count 19.1 K/mm3 (4.4-11.0)
[2024-10-04 06:43] LABS: Anion Gap 13 (5-15); BUN 18 mg/dL (4-19); BUN/Creat Ratio 15.9 RATIO (10-20); Calcium,Total 9.4 mg/dL (7.6-11.0); Carbon Dioxide 22.4 mmol/L (21.0-32.0); Chloride 102 mmol/L (98-108); Creatinine, Serum 1.15 mg/dL (0.70-1.20); EST Glomerular Filtration Rate 51 (>60); Estimated Creatinine Clearance 57.27 ml/min (50-250); Glucose 109 mg/dL (70-99); Potassium 4.1 mmol/L (3.3-5.1); Sodium Level 137 mmol/L (133-145)
[2024-10-04 07:00] LABS: Bedside Glucose 101 mg/dL (74-106)
[2024-10-04] MEDS: Furosemide 40 MG/4 ML Vial IV ×2 (11:21→18:30)
[2024-10-04] MEDS: Metoprolol Tartrate 50 MG Tablet PO ×2 (11:22→23:08)
[2024-10-04] MEDS: DULoxetine Hcl 60 MG Capsule PO (11:22)
[2024-10-04] MEDS: Famotidine 20 MG Tablet PO (11:22)
[2024-10-04] MEDS: Clopidogrel Bisulfate 75 MG Tablet PO (11:22)
[2024-10-04] MEDS: Pantoprazole Sodium 40 MG Tablet PO (11:30)
[2024-10-04] MEDS: Lisinopril 20 MG Tablet PO (11:30)
[2024-10-04] MEDS: Ferrous Sulfate 325 MG Tablet PO ×2 (11:31→18:30)
[2024-10-04] MEDS: Enoxaparin 40 MG/0.4 ML Syringe SC (11:32)
[2024-10-04] MEDS: Nystatin Powder 15gm Bottle 1 APPLIC TOPICAL ×2 (11:32→23:09)
[2024-10-04] MEDS: Spironolactone 25 MG Tablet 12.5 MG PO (11:32)
[2024-10-04] MEDS: 0.9% Saline Lock 10 ML Syringe IV ×2 (11:34→18:33)
[2024-10-04] MEDS: Ceftriaxone 1 GM/50 ML BAG IV (11:42)
[2024-10-04 15:28] LABS: Bedside Glucose 109 mg/dL (74-106)
[2024-10-04 18:54] LABS: Bedside Glucose 150 mg/dL (74-106)
[2024-10-04] MEDS: Atorvastatin Calcium 40 MG Tablet PO (23:09)
[2024-10-04] MEDS: Senna/Docusate Sodium 1 Tablet 2 TABLET PO (23:09)
[2024-10-04] MEDS: Loperamide 2 MG Capsule 4 MG PO (23:09)
[2024-10-05] VITALS (8 sets, daily range): BP systolic 115–142; BP diastolic 44–77; PULSE 64–71; RESP 17–18; TEMP 36.3–36.8; O2SAT 95–97; BMI 50.3
[2024-10-05 03:40] LABS: Bedside Glucose 127 mg/dL (74-106)
[2024-10-05 05:53] LABS: Absolute Lymphocyte Count 1.58 X10^3/uL (0.83-4.51); Absolute Neutrophil Count 9.5 X10^3/uL (2.0-7.7); Basophil# 0.07 X10^3/uL; Basophil% 0.5 % (0-1); Eosinophil# 0.43 X10^3/uL; Eosinophils% 3.3 % (0-5); Hematocrit 38.5 % (37-47); Hemoglobin 12.6 g/dL (12.0-15.0); Lymphocyte # 1.58 X10^3/ul (0.83-4.51); Lymphocyte % 12.2 % (19-41); Mean Corp Hgb Conc 32.7 g/dL (32-36); Mean Corpuscular Hgb 29.2 pg (27.0-32.0); Mean Corpuscular Volume 89.3 fL (81-99); Mean Platelet Vol. 10.3 fl (6.2-12.0); Monocyte# 1.26 X10^3/uL; Monocyte% 9.8 % (0-10); NRBC Flagged by Analyzer 0 % (0-5); Neutrophil # 9.47 X10^3/uL (2.7-7.7); Neutrophil % 73.5 % (47-70); Platelet Count 217 K/mm3 (150-450); RBC Distribution Width CV 13.7 % (11.6-14.6); RBC Distribution Width SD 45.1 fl (35.1-43.9); Red Blood Count 4.31 M/mm3 (4.2-5.4); White Blood Count 12.9 K/mm3 (4.4-11.0)
[2024-10-05 06:19] LABS: Anion Gap 14 (5-15); BUN 23 mg/dL (4-19); BUN/Creat Ratio 20.1 RATIO (10-20); Calcium,Total 9.4 mg/dL (7.6-11.0); Carbon Dioxide 23.3 mmol/L (21.0-32.0); Chloride 96 mmol/L (98-108); Creatinine, Serum 1.13 mg/dL (0.70-1.20); EST Glomerular Filtration Rate 52 (>60); Estimated Creatinine Clearance 58.26 ml/min (50-250); Glucose 114 mg/dL (70-99); Potassium 3.8 mmol/L (3.3-5.1); Sodium Level 133 mmol/L (133-145)
[2024-10-05 06:50] LABS: Bedside Glucose 115 mg/dL (74-106)
[2024-10-05] MEDS: Senna/Docusate Sodium 1 Tablet 2 TABLET PO ×2 (09:42→20:59)
[2024-10-05] MEDS: Ceftriaxone 1 GM/50 ML BAG IV (09:42)
[2024-10-05] MEDS: Pantoprazole Sodium 40 MG Tablet PO (09:43)
[2024-10-05] MEDS: Famotidine 20 MG Tablet PO (09:43)
[2024-10-05] MEDS: Aspirin E.C. 81 MG Tablet PO (09:43)
[2024-10-05] MEDS: DULoxetine Hcl 60 MG Capsule PO (09:44)
[2024-10-05] MEDS: Ferrous Sulfate 325 MG Tablet PO ×3 (09:44→16:54)
[2024-10-05] MEDS: Clopidogrel Bisulfate 75 MG Tablet PO (09:45)
[2024-10-05] MEDS: Spironolactone 25 MG Tablet 12.5 MG PO (09:45)
[2024-10-05] MEDS: Metoprolol Tartrate 50 MG Tablet PO ×2 (09:46→20:59)
[2024-10-05] MEDS: Furosemide 40 MG/4 ML Vial IV ×2 (09:46→16:54)
[2024-10-05] MEDS: Nystatin Powder 15gm Bottle 1 APPLIC TOPICAL ×2 (09:47→20:59)
[2024-10-05] MEDS: Enoxaparin 40 MG/0.4 ML Syringe SC (09:47)
[2024-10-05] MEDS: 0.9% Saline Lock 10 ML Syringe IV (09:48)
[2024-10-05] MEDS: Lisinopril 20 MG Tablet PO (10:10)
[2024-10-05] MEDS: Insulin Lispro 100 UNIT/ML INSULN.PEN SC ×3 (12:10→21:13)
[2024-10-05 16:23] LABS: Bedside Glucose 206 mg/dL (74-106)
[2024-10-05 16:30] LABS: Bedside Glucose 153 mg/dL (74-106)
[2024-10-05] MEDS: Atorvastatin Calcium 40 MG Tablet PO (20:59)
[2024-10-05] MEDS: Loperamide 2 MG Capsule 4 MG PO (21:00)
[2024-10-05 21:25] LABS: Bedside Glucose 217 mg/dL (74-106)
[2024-10-06 05:45] VITALS: BP 153/57; PULSE 69; RESP 16; TEMP 36.6; O2SAT 96
[2024-10-06 06:00] VITALS: BMI 50.0
[2024-10-06 06:07] LABS: Absolute Lymphocyte Count 1.55 X10^3/uL (0.83-4.51); Absolute Neutrophil Count 7.5 X10^3/uL (2.0-7.7); Basophil# 0.12 X10^3/uL; Basophil% 1.1 % (0-1); Eosinophil# 0.39 X10^3/uL; Eosinophils% 3.6 % (0-5); Hematocrit 42.2 % (37-47); Hemoglobin 13.8 g/dL (12.0-15.0); Lymphocyte # 1.55 X10^3/ul (0.83-4.51); Lymphocyte % 14.3 % (19-41); Mean Corp Hgb Conc 32.7 g/dL (32-36); Mean Corpuscular Volume 88.7 fL (81-99); Mean Platelet Vol. 10.3 fl (6.2-12.0); Monocyte# 1.17 X10^3/uL; Monocyte% 10.8 % (0-10); NRBC Flagged by Analyzer 0 % (0-5); Neutrophil # 7.53 X10^3/uL (2.7-7.7); Neutrophil % 69.4 % (47-70); Platelet Count 260 K/mm3 (150-450); RBC Distribution Width CV 13.3 % (11.6-14.6); RBC Distribution Width SD 43.4 fl (35.1-43.9); Red Blood Count 4.76 M/mm3 (4.2-5.4); White Blood Count 10.9 K/mm3 (4.4-11.0)
[2024-10-06 06:45] LABS: Anion Gap 17 (5-15); BUN 22 mg/dL (4-19); BUN/Creat Ratio 21.3 RATIO (10-20); Calcium,Total 10.1 mg/dL (7.6-11.0); Chloride 96 mmol/L (98-108); Creatinine, Serum 1.04 mg/dL (0.70-1.20); EST Glomerular Filtration Rate 58 (>60); Estimated Creatinine Clearance 63.08 ml/min (50-250); Glucose 128 mg/dL (70-99); Potassium 4.1 mmol/L (3.3-5.1); Sodium Level 136 mmol/L (133-145)
[2024-10-06 07:16] LABS: Bedside Glucose 145 mg/dL (74-106)
[2024-10-06 08:00] VITALS: RESP 18
[2024-10-06] MEDS: Aspirin E.C. 81 MG Tablet PO (08:36)
[2024-10-06] MEDS: Ferrous Sulfate 325 MG Tablet PO ×2 (08:36→11:44)
[2024-10-06 09:47] VITALS: BP 150/72; PULSE 71; RESP 16; TEMP 37.1; O2SAT 96
[2024-10-06] MEDS: 0.9% Saline Lock 10 ML Syringe IV (10:07)
[2024-10-06] MEDS: Ceftriaxone 1 GM/50 ML BAG IV (10:07)
[2024-10-06] MEDS: Senna/Docusate Sodium 1 Tablet 2 TABLET PO (10:10)
[2024-10-06] MEDS: Clopidogrel Bisulfate 75 MG Tablet PO (10:10)
[2024-10-06 10:11] VITALS: BP 150/72; PULSE 71
[2024-10-06] MEDS: Pantoprazole Sodium 40 MG Tablet PO (10:11)
[2024-10-06] MEDS: Metoprolol Tartrate 50 MG Tablet PO (10:11)
[2024-10-06] MEDS: Spironolactone 25 MG Tablet PO (10:12)
[2024-10-06] MEDS: Lisinopril 20 MG Tablet PO (10:12)
[2024-10-06] MEDS: DULoxetine Hcl 60 MG Capsule PO (10:13)
[2024-10-06] MEDS: Furosemide 40 MG/4 ML Vial IV (10:13)
[2024-10-06] MEDS: Enoxaparin 40 MG/0.4 ML Syringe SC (10:13)
[2024-10-06] MEDS: Nystatin Powder 15gm Bottle 1 APPLIC TOPICAL (10:14)
[2024-10-06] MEDS: Famotidine 20 MG Tablet PO (10:15)
[2024-10-06] MEDS: Polyethylene Glycol 3350 17 GM PACKET PO (10:17)
[2024-10-06] MEDS: Insulin Lispro 100 UNIT/ML INSULN.PEN SC (11:43)
[2024-10-06 12:03] LABS: Bedside Glucose 165 mg/dL (74-106)
[2024-10-06 14:56] VITALS: BP 147/65; PULSE 72; RESP 16; TEMP 37.1; O2SAT 96
[2024-10-06] MEDS: Acetaminophen 325 MG Tablet 650 MG PO (15:04)
== END 2024-10-06 16:20 | disposition skilled nursing facility (03) | DRG 291 ==
LOC: ED 18:51 → MS3 19:59
PROVIDERS: Admitting Provider Family Medicine; Emergency Provider Emergency Medicine; PCP Family Medicine; Visit Provider Internal Medicine
DX: I13.0 Hypertensive heart and chronic kidney disease with heart failure and stage 1 through stage 4 chronic kidney disease, or unspecified chronic kidney disease (principal); I50.33 Acute on chronic diastolic (congestive) heart failure; G92.8 Other toxic encephalopathy; I69.351 Hemiplegia and hemiparesis following cerebral infarction affecting right dominant side; F02.83 Dementia in other diseases classified elsewhere, unspecified severity, with mood disturbance; Z68.42 Body mass index [BMI] 45.0-49.9, adult; F02.84 Dementia in other diseases classified elsewhere, unspecified severity, with anxiety; I69.392 Facial weakness following cerebral infarction; I27.20 Pulmonary hypertension, unspecified; E11.22 Type 2 diabetes mellitus with diabetic chronic kidney disease; D50.9 Iron deficiency anemia, unspecified; E11.40 Type 2 diabetes mellitus with diabetic neuropathy, unspecified; Z95.1 Presence of aortocoronary bypass graft; N18.31 Chronic kidney disease, stage 3a; I35.1 Nonrheumatic aortic (valve) insufficiency; E66.01 Morbid (severe) obesity due to excess calories; E78.5 Hyperlipidemia, unspecified; I25.10 Atherosclerotic heart disease of native coronary artery without angina pectoris; K52.9 Noninfective gastroenteritis and colitis, unspecified; J32.9 Chronic sinusitis, unspecified; G30.9 Alzheimer's disease, unspecified; K21.9 Gastro-esophageal reflux disease without esophagitis; G47.33 Obstructive sleep apnea (adult) (pediatric); K59.09 Other constipation; R09.02 Hypoxemia; R53.81 Other malaise; N32.81 Overactive bladder; Z91.51 Personal history of suicidal behavior; Z79.82 Long term (current) use of aspirin; Z79.84 Long term (current) use of oral hypoglycemic drugs; Z79.02 Long term (current) use of antithrombotics/antiplatelets; Z87.440 Personal history of urinary (tract) infections; Z79.899 Other long term (current) drug therapy
CPT/HCPCS: 36415; 36600; 70450; 71046; 72125; 80048; 80053; 81001; 82550; 82803; 82962; 83605; 85025; 85610; 85730; 87040; 87077; 87086; 87088; 87186; 87449; 87631; 87633; 93005; 93306; 94668; 94762; 97112; 97163; 97166; 97530; 97535; 99285; Q9957; A4216; C8929; J1938

== ENCOUNTER 2024-10-06 16:24 | Inpatient (IN) | payer MEDICARE, OTHER, SELFPAY ==
[2024-10-06 17:03] VITALS: BMI 49.9
[2024-10-06 17:23] VITALS: BP 140/62; PULSE 63; RESP 14; TEMP 37; O2SAT 92; BMI 49.9
--- NOTE | 2024-10-06 18:39 | PCM.HP.STD ---
HPI - General General Date of Admission: 10/06/24 Date of Service: 10/06/24 Chief Complaint: Here for rehabilitation. HPI Narrative SHERIDAN AKHTAR, is a 68 Female who presents with followin10/02/2024 [facility] ED weakness. Weakness worse for 10 days, found face down, EMS called. Right hemiparesis worse, concern with stroke. Chronic diarrhea, recurrent UTI, sore throat, cough. Fever 99.3. Urinalysis c/w UTI, Chest X-ray showed pneumonia. Rocephin, Zithromax IV for pneumonia/UTI. 10/02/2024 Admit [facility]. Rocephin, Zithromax for sepsis/pneumonia/UTI. 10/03/2024 Sepsis ruled out. Respiratory panel negative, Urinary antigens strep negative, urinary antigen for legionella negative. covid negative, flu negative, rsv negative. Seroquel 50mg, Xanax 1mg for . 10/04/2024 Increasing lethargy, Increase oxygen requirements 4 liters per nasal cannula, sedatives given at bedtime. 10/04/2024 Sleepy, lethargic, Hold antipsychotics, benzodiazepines, SNRI, Lyrica. Short of breath, ABG, Oxygen 5 liters per nasal cannula. Lasix IV for acute respiratory failure with hypoxia, acute HFpEF. Rocephin IV for E. Coli UTI. Hold polypharmacy for encephalopathy. 10/05/2024 More awake, talking, No BM for 3-4 days. Continue to hold antipsychotics, benzodiazepines, SNRI, Lyrica. Lasix IV for acute respiratory failure with hypoxia, Acute HFpEF, Urine output 2550mML, Echo tomorrow. Rocephin IV for E. Coli UTI. Miralax, Dulcolax oral, supp for constipation. 10/06/2024 Admit to TCU with debility, here for rehabilitation, strengthening, prior to discharge home with . For the last 2 weeks, has been using [employer]ift at home to transfer [place] 2/2 Morbid obesity, weakness. [facility] Medical History (Updated 10/06/24 @ 18:[address] Adrián Almaraz MD) Diabetic polyneuropathy Right hemiparesis Overactive bladder GERD (gastroesophageal reflux disease) Alzheimer's disease Infection of prosthetic right knee joint Chronic pain Non-smoker Infection of total right knee replacement Metatarsal fracture Fracture of medial malleolus, right, closed Iron deficiency anemia Stroke Body mass index (BMI) 45.0-49.9, adult Coronary artery disease Closed right ankle fracture Type 2 diabetes mellitus Presence of stent in coronary artery (~02/27/12) Essential hypertension Atherosclerotic heart disease of [place] coronary artery without angina pectoris Pulmonary hypertension Nocturnal hypoxemia CVA (cerebral vascular accident) Heart disease Hyperlipidemia Morbid obesity Insomnia Anxiety Depression Suicide attempt by drug ingestion Home Medications ?Medication ?Instructions ?Recorded ?Last Taken ?Type atorvastatin 40 mg tablet 40 mg PO QHS CHOLESTEROL 01/27/16 03/16/21 History lisinopril 20 mg tablet 20 mg PO DAILY BP 03/17/21 03/16/21 History glimepiride 1 mg tablet 1 mg PO DAILY diabetes 09/01/21 Unknown History pantoprazole 40 mg tablet,delayed 40 mg PO DAILY reflux 09/01/21 Unknown History release Held on 10/06/24. Instructions: Follow-up with PCP. It might be discontinued. She is on famotidine amlodipine 10 mg tablet 10 mg PO DAILY [facility] 06/06/22 Unknown History clopidogrel 75 mg tablet 75 mg PO DAILY antiplatelet 06/06/22 06/29/22 History famotidine 20 mg tablet 20 mg PO DAILY 06/06/22 Unknown History folic acid 1 mg tablet 1 mg PO DAILY supplement 06/06/22 Unknown History aspirin 81 mg tablet,delayed 81 mg PO DAILY [facility] 06/07/22 06/29/22 History release duloxetine 60 mg capsule,delayed 60 mg PO DAILY depression 11/21/22 Unknown History release pregabalin 100 mg capsule 100 mg PO TID nerve/muscle pain 11/22/22 Unknown History tizanidine 4 mg tablet 4 mg PO BID restless legs 05/10/23 Unknown History donepezil 23 mg tablet 23 mg PO DAILY dementia 10/02/24 Unknown History hydrocortisone 1 % lotion 1 ea topical BID inflammation 10/02/24 Unknown History loperamide 2 mg capsule 4 mg PO QHS diarrhea 10/02/24 Unknown History metoprolol tartrate 50 mg tablet 50 mg PO BID [facility] 10/02/24 Unknown History triamcinolone acetonide 0.1 % 1 applic topical BID PRN SKIN 10/02/24 Unknown History topical cream CONDITION alprazolam 0.25 mg tablet 0.25 mg PO DAILY anxiety #0 tabs 10/06/24 Unknown Rx alprazolam 0.25 mg tablet 0.25 mg PO QHS PRN Anxiety #0 tabs 10/06/24 Unknown Rx ferrous sulfate 325 mg (65 mg 325 mg PO DAILY supplement 30 days 10/06/24 Unknown Rx iron) tablet (FeroSul) #0 tabs furosemide 40 mg tablet (Lasix) 40 mg PO BID fluid retention #60 10/06/24 Unknown Rx tabs insulin lispro 100 unit/mL See Protocol subcut ACHS diabetes 10/06/24 Unknown Rx subcutaneous pen (Humalog KwikPen #0 mL (U-100) Insulin) nortriptyline 50 mg capsule 50 mg PO QHS depression 30 days #0 10/06/24 Unknown Rx caps sennosides 8.6 mg-docusate sodium 2 tab PO BID constipation #0 tabs 10/06/24 Unknown Rx 50 mg tablet (Stimulant Laxative Plus) Allergy/AdvReac Type Severity Reaction Status Date / Time amitriptyline Allergy Intermediate Other Verified 12/12/23 13:21 lorazepam Allergy Unknown Other Verified 12/12/23 13:21 ciprofloxacin (From Cipro) Allergy Unknown Verified 12/12/23 13:21 escitalopram oxalate (From Allergy Unknown Verified 12/12/23 13:21 Lexapro) heparin Allergy real Verified 12/12/23 13:21 anxious mupirocin (From Bactroban) Allergy Unknown Verified 12/12/23 13:21 trazodone Allergy knocked Verified 12/12/23 13:21 me out adhesive tape AdvReac Rash Verified 12/12/23 13:21 Family History Mother CAD (coronary artery disease) Hypertension Father CAD (coronary artery disease) Brother Myocardial infarction Hypertension Sister Hypertension Other CVA (cerebral vascular accident) Surgical History History of left heart catheterization (LHC) (~06/29/22) History of ankle surgery History of foot surgery History of hernia repair Presence of coronary angioplasty implant and graft (~02/27/12) Status post total right knee replacement (~12/25/18) History of hysterectomy History of cholecystectomy History of tonsillectomy History of knee replacement H/O arthroscopy of right knee Social History household members: spouse current occupational status: retired Smoking Status: Never smoker Electronic Cigarette Use: not used second hand exposure: No alcohol intake: current alcohol intake frequency: holidays/special occasions only substance use type: does not use caffeine: Yes Type: carbonated beverages and tea ROS Constitutional Constitutional: Denies chills, fever(s) or weight gain ENT HEENT: Denies headache(s), nasal congestion or nasal discharge Cardiovascular Cardiovascular: Denies chest pain or palpitations Respiratory/Chest Respiratory/Chest: Denies cough, excessive phlegm production or shortness of breath with exertion Gastrointestinal Gastrointestinal: Denies abdominal pain, nausea or vomiting Genitourinary Genitourinary: Denies dysuria Musculoskeletal Musculoskeletal: Denies joint pain or joint swelling Integumentary Integumentary: Denies rash or wounds Neurologic Neurologic: Denies focal weakness, numbness or tingling Psychiatric Psychiatric: Denies anxiety, auditory hallucinations, depression, homicidal ideation or suicidal ideation Physical Exam Const alert General Appearance: cooperative HEENT normocephalic Eyes PERRL and EOMs intact bilaterally Neck supple, no JVD and no carotid bruits Resp normal respiratory effort, normal air movement and clear to auscultation bilaterally Cardio regular rate and regular rhythm GI normal to inspection, nondistended, normoactive bowel sounds, non-tender and non-distended Extremity normal capillary refill General Extremity: Negative for edema Skin no rashes or lesions noted General Skin Exam: no breakdown Psych affect normal Appearance: appropriate Assessment & Plan Assessment/Plan (1) Debility: (2) Encephalopathy: (3) Pneumonia: (4) Urinary tract infection: (5) Acute respiratory failure with hypoxia: (6) Acute heart failure with preserved ejection fraction (HFpEF): (7) Lethargy: (8) History of stroke: (9) Right hemiparesis: (10) Coronary artery disease: (11) Overactive bladder: (12) Pulmonary hypertension: (13) Anxiety: (14) Hyperlipidemia: (15) Muscle spasm: (16) Depression: (17) Type 2 diabetes mellitus with hyperglycemia: (18) GERD (gastroesophageal reflux disease): (19) Diabetic polyneuropathy: (20) Alzheimer's disease: (21) Morbid obesity: PLAN: Plan 68 year old female with below past medical history hospitalized for encephalopathy 2/2 E. Coli UTI/pneumonia, complicated by lethargy 2/2 medications, acute respiratory failure with hypoxia 2/2 acute HFpEF, admitted to TCU with debility, here for rehabilitation, strengthening, prior to discharge home with . Debility - PT/OT. Pain - Tylenol 1000mg q6 prn pain (1-10). Bowel - senna/colace 2 tablets bid, Magnesium citrate 300mL daily prn. Adult immunization - Administer pneumonia vaccine, covid vaccine, flu vaccine as appropriate. DVT prophylaxis - Hold on dual antiplatelet therapy. Hypertension - Metoprolol 50mg bid, Amlodipine 10mg daily. Coronary artery disease - Metoprolol 50mg bid, Lisinopril 20mg daily, Plavix 75mg daily, Aspirin 81mg daily. History stroke - Plavix 75mg daily, Aspirin 81mg daily. Hyperlipidemia - Atorvastatin 40mg qhs. Alzheimer Disease - Donepezil 10mg qhs. GERD - Famotidine 20mg daily. Iron deficiency anemia - Ferrous sulfate 325mg daily. Folate deficiency - Folic Acid 1mg daily. Chronic HFpEF - Metoprolol 50mg bid, Lisinopril 20mg daily, Furosemide 40mg bid. Diabetes Mellitus II - Glimepiride 1mg daily. Diabetic polyneuropathy - Lyrica 100mg bid. Muscle spasm - Tizanidine 4mg bid. Rash - Kenalog cream bid prn. The following psychotropic medication was present on admission: Xanax 0.25mg daily, 0.25mg qhs prn. Psychotropic medication therapy is indicated for a diagnosis of: Anxiety. Based on my clinical evaluation, continuation of the medication is necessary at this time. Gradual dose reduction plan (select one): ____ GDR will be attempted. Will monitor patient symptoms and behaviors in response to GDR. __x__ GRD contraindicated. 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 The following psychotropic medication was present on admission: Duloxetine 60mg daily. Psychotropic medication therapy is indicated for a diagnosis of: Major Depression. Based on my clinical evaluation, continuation of the medication is necessary at this time. Gradual dose reduction plan (select one): ____ GDR will be attempted. Will monitor patient symptoms and behaviors in response to GDR. __x__ GRD contraindicated. 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 The following psychotropic medication was present on admission: Nortriptyline 50mg qhs. Psychotropic medication therapy is indicated for a diagnosis of: Diabetic polyneuropathy. Based on my clinical evaluation, continuation of the medication is necessary at this time. Gradual dose reduction plan (select one): ____ GDR will be attempted. Will monitor patient symptoms and behaviors in response to GDR. __x__ GRD contraindicated. Reason contraindicated: stable chronic mcfp use.
--- NOTE | 2024-10-06 20:31 | NURSING ---
Order received via backline from Dr. Almaraz to stop tizanadine due to med interactions noted from pharmacy.
[2024-10-06 21:11] VITALS: BP 141/65; PULSE 66; O2SAT 95
[2024-10-06] MEDS: 0.9% Saline Lock 10 ML Syringe IV (21:14)
[2024-10-06 21:17] VITALS: BP 141/65; PULSE 66
[2024-10-06] MEDS: Senna/Docusate Sodium 1 Tablet 2 TABLET PO (21:18)
[2024-10-07 08:56] LABS: Hematocrit 43.1 % (37-47); Hemoglobin 14.1 g/dL (12.0-15.0); Immature Granulocytes Count 0.200 X10^3/uL (0.0-0.0); Mean Corp Hgb Conc 32.7 g/dL (32-36); Mean Corpuscular Volume 89.2 fL (81-99); Mean Platelet Vol. 10.0 fl (6.2-12.0); NRBC Flagged by Analyzer 0 % (0-5); Platelet Count 328 K/mm3 (150-450); RBC Distribution Width CV 13.5 % (11.6-14.6); RBC Distribution Width SD 43.9 fl (35.1-43.9); Red Blood Count 4.83 M/mm3 (4.2-5.4); White Blood Count 11.7 K/mm3 (4.4-11.0)
[2024-10-07 09:20] VITALS: BP 134/58; PULSE 79; RESP 18; TEMP 36.7; O2SAT 95
[2024-10-07] MEDS: Aspirin E.C. 81 MG Tablet PO (09:21)
[2024-10-07] MEDS: Senna/Docusate Sodium 1 Tablet 2 TABLET PO (09:21)
[2024-10-07 09:22] VITALS: BP 134/58; PULSE 79
[2024-10-07] MEDS: 0.9% Saline Lock 10 ML Syringe IV ×2 (09:25→22:16)
[2024-10-07 09:53] LABS: Anion Gap 15 (5-15); BUN 28 mg/dL (4-19); BUN/Creat Ratio 22.3 RATIO (10-20); Calcium,Total 10.6 mg/dL (7.6-11.0); Carbon Dioxide 29.0 mmol/L (21.0-32.0); Chloride 94 mmol/L (98-108); Estimated Creatinine Clearance 51.79 ml/min (50-250); Glucose 139 mg/dL (70-99); Potassium 3.8 mmol/L (3.3-5.1)
--- NOTE | 2024-10-07 11:08 | NURSING ---
contestant coordinator Note; Activity Asset: Chloé Swartz is independent in her choice of daily activities w/reminders. She is disoriented and very sleepy. She has her smartphone she stated she will play games on when not resting or watching tv. Very confused at this time. She did say she welcomes visits from the automobile locator and therapy dog when available. staff will remind her of weekly activities and respect her right to say no.
--- NOTE | 2024-10-07 11:19 | CASEMGMT ---
Social Work SW met with patient to complete initial assessment. Pt known to this worker from previous stay. Verified contacts. Discussed code status in depth. Pt did not make a final decision, but stated she would like her to make decisions. SW explained pt will remain full code, and if pt makes a different decision, to notify staff. Otherwise, all life sustaining measures will be taken and , as HCPOA, can make ongoing decisions as needed. Pt confirmed and expressed understanding. SW educated to Medicare benefit. Pt confirmed her was using a ana to assist her at home shortly before admission. Plan is to DC home with assisting. SW will continue to follow for DC planning. Monica Curtis MSW AIR CARRIER INSPECTOR
[2024-10-07] MEDS: Tuberculin,Purif.prot.deriv. 50 TU/ML Vial 0.1 ML ID (12:04)
--- NOTE | 2024-10-07 12:07 | PHA.CONS_ITS ---
Documented by User: Angie Huang 10/07/24 12:33 TCU RX Drug Regimen Review Subjective/Objective Subjective/Objective Subjective: TCU Admission. 68 YOF presented to ER with weakness. Hospitalized for encephalopathy 2/2 E. Coli UTI/pneumonia, complicated by lethargy 2/2 m edications, acute respiratory failure with hypoxia 2/2 acute HFpEF. Admitted to TCU with debility for strengthening and rehabilitation. Objective: Allergies amitriptyline Allergy (Intermediate, Verified 12/12/23 13:21) Other increased anxiety,restless legs lorazepam Allergy (Unknown, Verified 12/12/23 13:21) Other ciprofloxacin (From Cipro) Allergy (Verified 12/12/23 13:21) Unknown escitalopram oxalate (From Lexapro) Allergy (Verified 12/12/23 13:21) Unknown heparin Allergy (Verified 12/12/23 13:21) real anxious mupirocin (From Bactroban) Allergy (Verified 12/12/23 13:21) Unknown trazodone Allergy (Verified 12/12/23 13:21) knocked me out adhesive tape Adverse Reaction (Verified 12/12/23 13:21) Rash Current Medications Generic Name Dose Route Start Last Admin Trade Name Freq PRN Reason Stop Dose Admin Acetaminophen 1,000 mg 10/06/24 18:58 Acetaminophen 500 Mg Tablet PO Q6H PRN PRN Pain Score 1-10 Alprazolam 0.25 mg 10/06/24 17:35 Alprazolam 0.25 Mg Tablet PO QHS PRN Anxiety Alprazolam 0.25 mg 10/07/24 10:00 10/07/24 09:25 Alprazolam 0.25 Mg Tablet PO 0.25 mg DAILY TUAN Administration Amlodipine Besylate 10 mg 10/07/24 10:00 10/07/24 09:23 Amlodipine 10 Mg Tablet PO 10 mg DAILY TUAN Administration Protocol Aspirin 81 mg 10/07/24 08:00 10/07/24 09:21 Aspirin E.C. 81 Mg Tablet PO 81 mg BREAKFAST TUAN Administration Atorvastatin Calcium 40 mg 10/06/24 22:00 10/06/24 21:16 Atorvastatin Calcium 40 Mg Tablet PO 40 mg QHS TUAN Administration Clopidogrel Bisulfate 75 mg 10/07/24 10:00 10/07/24 09:22 Clopidogrel Bisulfate 75 Mg Tablet PO 75 mg DAILY TUAN Administration Donepezil HCl 10 mg 10/06/24 22:00 10/06/24 21:19 Donepezil Hcl 10 Mg Tablet PO 10 mg QHS TUAN Administration Duloxetine HCl 60 mg 10/07/24 10:00 10/07/24 09:22 Duloxetine Hcl 60 Mg Capsule PO 60 mg DAILY TUAN Administration Famotidine 20 mg 10/07/24 10:00 10/07/24 09:22 Famotidine 20 Mg Tablet PO 20 mg DAILY TUAN Administration Ferrous Sulfate 325 mg 10/07/24 12:00 10/07/24 12:04 Ferrous Sulfate 325 Mg Tablet PO 325 mg DAILY@1200 TUAN Administration Folic Acid 1 mg 10/07/24 08:00 10/07/24 09:22 Folic Acid 1 Mg Tablet PO 1 mg BREAKFAST TUAN Administration Furosemide 40 mg 10/06/24 22:00 10/07/24 09:22 Furosemide 40 Mg Tablet PO 40 mg BID TUAN Administration Protocol Glimepiride 1 mg 10/07/24 10:00 10/07/24 09:22 Glimepiride 1 Mg Tablet PO 1 mg DAILY TUAN Administration Lisinopril 20 mg 10/07/24 10:00 10/07/24 09:22 Lisinopril 20 Mg Tablet PO 20 mg DAILY TUAN Administration Protocol Magnesium Citrate 300 ml 10/06/24 18:57 Magnesium Citrate 300 Ml PO DAILY PRN CONSTIPATION Metoprolol Tartrate 50 mg 10/06/24 22:00 10/07/24 09:22 Metoprolol Tartrate 50 Mg Tablet PO 50 mg BID TUAN Administration Protocol Nortriptyline HCl 50 mg 10/06/24 22:00 10/06/24 21:17 Nortriptyline 25 Mg Capsule PO 50 mg QHS TUAN Administration Pregabalin 100 mg 10/06/24 22:00 10/07/24 05:24 Pregabalin 50 Mg Capsule PO 100 mg TID TUAN Administration Senna/Docusate Sodium 2 tablet 10/06/24 22:00 10/07/24 09:21 Senna/Docusate Sodium 1 Tablet PO 2 tablet BID TUAN Administration Sodium Chloride 10 - 40 ml 10/06/24 18:45 10/07/24 09:25 0.9% Saline Lock 10 Ml Syringe IV 10 ml UD PRN Administration SALINE FLUSH Triamcinolone Acetonide 1 applic 10/06/24 17:41 Triamcinolone Acetonide 0.1% Cream 15 Gm TOPICAL BID PRN SKIN CONDITION Protocol Tuberculin PPD 0.1 ml 10/14/24 10:00 Tuberculin,Purif.Prot.Deriv. 50 Tu/Ml Vial ID 10/14/24 10:01 X1 ONE Problem List Alzheimer's disease (Acute) Diabetic polyneuropathy (Acute) GERD (gastroesophageal reflux disease) (Acute) Type 2 diabetes mellitus with hyperglycemia (Acute) Depression (Acute) Anxiety (Acute) Overactive bladder (Acute) Right hemiparesis (Acute) Lethargy (Acute) Acute heart failure with preserved ejection fraction (HFpEF) (Acute) Acute respiratory failure with hypoxia (Acute) Encephalopathy (Acute) Pneumonia (Acute) Urinary tract infection (Acute) Coronary artery disease (Chronic) Hyperlipidemia (Chronic) Pulmonary hypertension (Chronic) Morbid obesity (Chronic) Vital Signs Temp Pulse Resp BP Pulse Ox O2 Del Method O2 Flow Rate 98.6 F 79 14 134/58 H 95 Nasal Cannula 2 10/06/24 17:23 10/07/24 09:22 10/06/24 17:23 10/07/24 09:22 10/06/24 21:11 10/06/24 21:11 10/07/24 10:27 Oxygen Flow Rate (L/min) 2 Oxygen Delivery Method Nasal Cannula Weight: 123.831 kg Body Mass Index (BMI) 49.9 Sodium 137 mmol/L (133-145) 10/07/24 08:42 Potassium 3.8 mmol/L (3.3-5.1) 10/07/24 08:42 Chloride 94 mmol/L (98-108) L 10/07/24 08:42 Carbon Dioxide 29.0 mmol/L (21.0-32.0) 10/07/24 08:42 Anion Gap 15 (5-15) 10/07/24 08:42 BUN 28 mg/dL (4-19) H 10/07/24 08:42 Creatinine 1.27 mg/dL (0.70-1.20) H 10/07/24 08:42 Est GFR (MDRD) Non-Af 45 (>60) L 10/07/24 08:42 BUN/Creatinine Ratio 22.3 RATIO (10-20) H 10/07/24 08:42 Glucose 139 mg/dL (70-99) H 10/07/24 08:42 Assessment/Plan: 1. Pain: acetaminophen 1000mg PO Q6H PRN pain 1-10. No PRN doses given. Please continue to monitor for increased pain and PRN usage. 2. Bowel: senna/docusate 2T PO BID and magnesium citrate 300mL PO daily PRN constipation. No PRN doses given. Please continue to monitor for constipation and PRN usage. Last documented bowel movement was 10/07/24. 3. Hypertension/stroke history/CAD/chronic HFpEF: metoprolol tartrate 50mg PO BID, amlodipine 10mg PO daily, lisinopril 20mg PO daily, furosemide 40mg PO BID, clopidogrel 75mg PO daily and aspirin 81mg PO daily. Please continue to monitor BP (range 134-141/58-65), HR (range 63-79), swelling, fatigue, cough, renal function, potassium (last 3.8mmol/L), S/S of bleeding/bruising, hemoglobin (last 14.1g/dL). 4. Hyperlipidemia: atorvastatin 40mg PO QHS. Please continue to monitor lipid panel (last 05/07/24), LFTs (last 10/03/24) and muscle pain. 5. Alzheimer disease: donepezil 10mg PO QHS. Please continue to monitor for Alzheimer's symptoms, GI side effects. 6. Diabetes Mellitus II: glimepiride 1mg PO daily. Please consider ordering a hemoglobin A1c as the last was 6.1% from 05/07/24. Thanks. Please continue to monitor glucose (last 139mg/dL) and hypoglycemia (BEERs). 7. GERD: famotidine 20mg PO daily. Please continue to monitor for S/S of GERD and renal function. 8. Diabetic polyneuropathy: pregabalin 100mg PO TID. Please continue to monitor for confusion, falls/fractures (BEERs) and renal function (BEERs). 9. Iron deficiency anemia: ferrous sulfate 325mg PO daily. Please continue to monitor hemoglobin (last 14.1g/dL), constipation, dark stools. 10. Folate deficiency: folic acid 1mg PO daily. Please continue to monitor. 11. Rash: Kenalog cream topical BID PRN skin condition. No PRN doses given. Please continue to monitor for rash and PRN usage. Assessment/Plan for indications treated with psychotropic medications: 1. Anxiety: alprazolam 0.25mg PO daily and 0.25mg QHS PRN anxiety. No PRN doses given. Please see physician note regarding GDR. Monitor for sedation, mental status and cognition. Monitor for falls (risk factor for falls) and implement fall prevention strategies. Monitor for respiratory depression. RR range since admission =63-79. Monitor for efficacy including resident symptoms, behaviors and indications of distress. Monitor for tolerability including mental status, cognition, excessive sleepiness, withdrawal or decreased participation in activities and decline in physical functioning. Maximize use of nonpharmacologic/behavioral interventions to facilitate dose reduction or discontinuation as appropriate. Please evaluate the appropriateness of GDR unless contraindicated. If appropriate, GDR should be attempted in 2 separate quarters within the first year of use or admission to TCU. If GDR attempted, monitor resident symptoms/behaviors. 2. Major depression: duloxetine 60mg PO daily. Please see physician note rega rding GDR. Monitor for diarrhea, nausea, appetite/weight loss, anxiety or drowsiness, suicidal thoughts or behaviors (Boxed Warning), symptoms of bleeding, symptoms of serotonin syndrome (including agitation, confusion, hyperreflexia, rigidity/myoclonus, tremor, tachycardia, tachypnea), sodium levels (last Na =137mmol/L 10/07/24). Monitor blood pressure. BP range since admission =63-79. Monitor for orthostatic hypotension, including postural dizziness, syncope or falls. Check orthostatic vital signs if suspicion of orthostasis. Monitor for hepatotoxicity (abdominal pain, nausea, jaundice, dark urine, AST/ALT as clinically indicated). AST/ALT =WNL 10/03/24. Monitor for efficacy including resident symptoms, behaviors and indications of distress. Monitor for tolerability including mental status, cognition, excessive sleepiness, withdrawal or decreased participation in activities and decline in physical functioning. Maximize use of nonpharmacologic/behavioral interventions to facilitate dose reduction or discontinuation as appropriate. Please evaluate the appropriateness of GDR unless contraindicated. If appropriate, GDR should be attempted in 2 separate quarters within the first y ear of use or admission to TCU. If GDR attempted, monitor resident symptoms/behaviors. 3. Diabetic polyneuropathy: nortriptyline 50mg PO QHS. Please see physician note regarding GDR. Please continue to monitor for suicidal ideation (black box warning), anticholinergic side effects (BEERs), dementia/delirium (BEERs), falls/fractures (BEERs) and sodium (last 137mmol/L). Monitor for efficacy including resident symptoms, behaviors and indications of distress. Monitor for tolerability including mental status, cognition, excessive sleepiness, withdrawal or decreased participation in activities and decline in physical functioning. Maximize use of nonpharmacologic/behavioral interventions to facilitate dose reduction or discontinuation as appropriate. Please evaluate the appropriateness of GDR unless contraindicated. If appropriate, GDR should be attempted in 2 separate quarters within the first year of use or admission to TCU. If GDR attempted, monitor resident symptoms/behaviors. Medical chart and medication regimen reviewed. The following medication irregularities or issues were identified: 1. Glimepiride 1mg PO daily. Please consider ordering a hemoglobin A1c as the last was 6.1% from 05/07/24. Thanks. Date Date of Note: 10/07/24 Documented by User: Dr. Adrián Almaraz MD 10/07/24 14:04 TCU RX Drug Regimen Review Provider Comments Provider responsibility Provider Comments to Recommendations by Pharmacy Agree
[2024-10-07 16:33] VITALS: BMI 48.5
[2024-10-07 20:00] VITALS: PULSE 60; O2SAT 95
[2024-10-07 22:12] VITALS: BP 118/59; PULSE 60
[2024-10-07 22:20] VITALS: BP 118/59; PULSE 60
[2024-10-08 08:49] VITALS: O2SAT 95
[2024-10-08 08:51] VITALS: BP 138/56; PULSE 64; RESP 18; TEMP 35.9; O2SAT 95
[2024-10-08] MEDS: Aspirin E.C. 81 MG Tablet PO (08:56)
[2024-10-08 08:57] VITALS: PULSE 64
[2024-10-08] MEDS: Senna/Docusate Sodium 1 Tablet 2 TABLET PO ×2 (08:58→22:46)
[2024-10-08] MEDS: 0.9% Saline Lock 10 ML Syringe IV (08:59)
[2024-10-08 11:12] VITALS: PULSE 64; RESP 18; O2SAT 95
[2024-10-08 16:46] VITALS: O2SAT 96
[2024-10-08 22:45] VITALS: BP 106/46; PULSE 61
[2024-10-09 08:09] VITALS: BP 104/49; PULSE 65; RESP 18; TEMP 36.7; O2SAT 94
[2024-10-09] MEDS: Aspirin E.C. 81 MG Tablet PO (08:11)
[2024-10-09 08:12] VITALS: PULSE 65
[2024-10-09] MEDS: Senna/Docusate Sodium 1 Tablet 2 TABLET PO (08:13)
[2024-10-09] MEDS: 0.9% Saline Lock 10 ML Syringe IV ×2 (13:26→20:19)
[2024-10-09 20:00] VITALS: PULSE 59; O2SAT 94
[2024-10-09 20:08] VITALS: BP 120/56; PULSE 59; O2SAT 94
[2024-10-09 20:17] VITALS: BP 120/56; PULSE 59
[2024-10-10 07:00] VITALS: O2SAT 94
[2024-10-10 10:15] VITALS: BP 156/54; PULSE 67; RESP 17; TEMP 36.4; O2SAT 95
[2024-10-10] MEDS: Aspirin E.C. 81 MG Tablet PO (10:25)
[2024-10-10] MEDS: 0.9% Saline Lock 10 ML Syringe IV (10:25)
[2024-10-10 10:26] VITALS: PULSE 67
[2024-10-10] MEDS: Senna/Docusate Sodium 1 Tablet 2 TABLET PO (20:23)
[2024-10-10 20:25] VITALS: BP 138/62; PULSE 60
[2024-10-10 20:29] VITALS: BP 138/62; PULSE 59; RESP 16; TEMP 37.1; O2SAT 95
[2024-10-10 20:42] VITALS: PULSE 60; RESP 16; O2SAT 94
[2024-10-11] MEDS: 0.9% Saline Lock 10 ML Syringe IV ×2 (05:33→20:54)
[2024-10-11 05:36] VITALS: PULSE 58; RESP 18; O2SAT 97
[2024-10-11 07:25] VITALS: O2SAT 97
[2024-10-11] MEDS: Aspirin E.C. 81 MG Tablet PO (09:17)
[2024-10-11 09:19] VITALS: BP 131/49; PULSE 52
[2024-10-11 10:00] VITALS: BP 131/49; PULSE 52; RESP 18; TEMP 36; O2SAT 97
[2024-10-11 11:43] VITALS: BMI 48.9
[2024-10-11 20:55] VITALS: BP 108/54; PULSE 63
[2024-10-12 06:18] VITALS: BMI 49.0
[2024-10-12 07:08] VITALS: O2SAT 98
[2024-10-12 09:11] VITALS: PULSE 58
[2024-10-12] MEDS: Aspirin E.C. 81 MG Tablet PO (09:11)
[2024-10-12 10:00] VITALS: PULSE 60; RESP 18; O2SAT 95
[2024-10-12 15:15] VITALS: BP 125/62; PULSE 58; RESP 18; TEMP 36.6; O2SAT 94
[2024-10-12 20:44] VITALS: BP 128/55; PULSE 65
[2024-10-12] MEDS: Senna/Docusate Sodium 1 Tablet 2 TABLET PO (20:44)
[2024-10-13 05:53] VITALS: PULSE 62; RESP 18; O2SAT 96
[2024-10-13 08:12] VITALS: O2SAT 96
[2024-10-13] MEDS: Aspirin E.C. 81 MG Tablet PO (08:37)
[2024-10-13 08:38] VITALS: BP 127/61; PULSE 61
--- NOTE | 2024-10-13 08:41 | NURSING ---
rack carrier Note; MDS for 10/13/2024 Complete
--- NOTE | 2024-10-13 09:31 | NURSING ---
Addendum entered by Angela Hinds 10/16/24 10:14: Followed up with resident, she decided not to receive vaccine. Original Note: Offered covid vaccine, VIS provided. She would like to speak with later today about getting.
[2024-10-13 09:38] VITALS: BP 127/61; PULSE 61; RESP 18; TEMP 35.9; O2SAT 93
--- NOTE | 2024-10-13 16:14 | CASEMGMT ---
Social Work SW completed BIMS () and PHQ-9 () for MDS assessment. SW presented to pt's room, introduced self and role. was present. SW explored this worker will be completing routine questions with pt 1:1 and requested if could step out of the room. didn't verbally reply, but got up and left the room. SW closed the door and proceeded with MDS questions. Pt and are known well to this worker from previous stays, and aware of dynamic between and pt, as well as 's demeanor. SW wanted to ensure pt had a safe, open environment to share feelings and answer PHQ-9 questions. Which, pt did share some comments with 's dynamic and him caring for pt at home, stating he didn't want to bother me. SW explored pt's positive responses. Pt explained she has little motivation to participate in once enjoyed activities; difficulty sleeping at night because she cannot shut her mind off. Pt explained she is getting frustrated with her slow progress, though is motivated to participate in therapy and sees the benefit of remaining on TCU for therapy. Though, at times, pt reports she feels like a waste laying in bed, and prefers to be home. SW provided supportive and active listening. Validated feelings but encouraged pt to continue finding motivation and reach goals of physical improvement to return home with more independence to care for herself versus her at home. SW offered ongoing supportive visits, as needed. - Per CR, pt is prescribed Xanax daily, Cymbalta daily, and Melatonin PRN. SW will continue to monitor. - SW notified he can return to pt's room, and appreciative of his patience, as was waiting in the [facility]. stated he wanted to talk to the nursing home social worker at some point. This worker stated her role and offered to speak with . agreed. SW sat by and offered assistance. stated, first, I was put off by your little move in there, asking me to leave. SW apologized, though, explained the questions are routine and are completed 1:1 with this worker and the patient to allow privacy for answers for cognition and mood. replied, well those answers aren't going to be accurate. I go with her to every Dr's appt and she always turns to me to answer questions. SW explained the answers mood questions aren't based on accuracy, but on the pt's perspective of their feelings. continued to refute this worker's explanations stating pt is confused and would not be giving accurate answers. SW reiterated the purpose of the questionnaire is to learn about pt's perspective on her feelings. SW was able to kindly redirect the conversation to ask for additional assistance needed from the . inquired about insurance coverage for LTC, as he knows that will be a reality in the future, but not yet. SW educated to skilled vs intermediate insurance coverage, and LTC is either OOP cost or Medicaid. shared his opinions on MASTER. SW provided active listening. SW educated to MASTER being an income, asset based program and would require appropriate spend down for eligibility, such as a burial. stated that has been completed. stated pt is over income, not assets. SW educated to QIT and spousal allowance; answered questions on estate recovery. Answered questions for until he had understanding. SW offered ongoing assistance for DC planning. Monica Curtis MSW METALSMITH APPRENTICE
[2024-10-13 23:06] VITALS: BP 116/37; PULSE 53
[2024-10-13] MEDS: Senna/Docusate Sodium 1 Tablet 2 TABLET PO (23:07)
[2024-10-14] VITALS (7 sets, daily range): BP systolic 123–157; BP diastolic 47–57; PULSE 57–71; RESP 16–18; TEMP 35.8; O2SAT 93–94; BMI 48.4
[2024-10-14 05:55] LABS: Hematocrit 40.8 % (37-47); Hemoglobin 13.1 g/dL (12.0-15.0); Immature Granulocytes Count 0.070 X10^3/uL (0.0-0.0); Mean Corp Hgb Conc 32.1 g/dL (32-36); Mean Corpuscular Volume 90.1 fL (81-99); Mean Platelet Vol. 9.7 fl (6.2-12.0); NRBC Flagged by Analyzer 0 % (0-5); Platelet Count 321 K/mm3 (150-450); RBC Distribution Width CV 13.7 % (11.6-14.6); RBC Distribution Width SD 45.2 fl (35.1-43.9); Red Blood Count 4.53 M/mm3 (4.2-5.4); White Blood Count 9.7 K/mm3 (4.4-11.0)
[2024-10-14 06:23] LABS: Anion Gap 12 (5-15); BUN 40 mg/dL (4-19); BUN/Creat Ratio 34.2 RATIO (10-20); Calcium,Total 10.0 mg/dL (7.6-11.0); Carbon Dioxide 26.5 mmol/L (21.0-32.0); Chloride 102 mmol/L (98-108); Estimated Creatinine Clearance 55.11 ml/min (50-250); Glucose 110 mg/dL (70-99); Potassium 4.4 mmol/L (3.3-5.1)
[2024-10-14] MEDS: Aspirin E.C. 81 MG Tablet PO (09:06)
[2024-10-14] MEDS: Tuberculin,Purif.prot.deriv. 50 TU/ML Vial 0.1 ML ID (09:12)
[2024-10-15] VITALS (7 sets, daily range): BP systolic 115–170; BP diastolic 43–76; PULSE 50–63; RESP 17–18; TEMP 36.4; O2SAT 93–95
[2024-10-15] MEDS: Aspirin E.C. 81 MG Tablet PO (08:23)
--- NOTE | 2024-10-15 10:53 | CASEMGMT ---
Social Work IDT met with patient and for care plan meeting. Discussed patient's progress in PT/OT/ST/SN/RDN. Educated to Medicare benefit. Provided pt/family with written communication of insurance process and copay coverage during stay. Inquired about DC plan. and pt confirm the goal is for pt to return home at time of DC. Pt is a x2 SPT. wants to not return using the ana lift. Pt and wants pt to improve with independence and endurance further prior to DC. inquired about hospice stating those services are not just for end of life. SW confirmed, explaining once pt no longer wishes to continue with therapy, return to the hospital, and wants to maintain quality vs quantity of life, hospice would be a good fit. However, it does not provide ample aide assistance. and pt both want to continue with therapy at this time. SW will continue to follow for ongoing discharge planning. Monica Curtis INSPECTOR STRUCTURAL BONDING PROGRAMMING INSTRUCTOR
[2024-10-16 10:10] VITALS: BP 148/60; PULSE 62; RESP 18; TEMP 35.8; O2SAT 95
[2024-10-16 10:13] VITALS: PULSE 62
[2024-10-16] MEDS: Aspirin E.C. 81 MG Tablet PO (10:13)
[2024-10-16 20:16] VITALS: BP 102/55; PULSE 57
[2024-10-16 20:20] VITALS: BP 102/55; PULSE 57
[2024-10-16 20:29] VITALS: PULSE 57; O2SAT 91
[2024-10-17 05:24] VITALS: BP 130/43; PULSE 55
--- NOTE | 2024-10-17 08:38 | MDS.RN ---
Information for the MDS was obtained from review of the clinical record, interview of resident, staff, and direct observation of resident?s care.
[2024-10-17 09:23] VITALS: BP 144/62; PULSE 70; RESP 18; TEMP 35.8; O2SAT 95
[2024-10-17] MEDS: Aspirin E.C. 81 MG Tablet PO (09:26)
[2024-10-17 09:27] VITALS: PULSE 70
[2024-10-17 19:45] VITALS: PULSE 53; RESP 16; O2SAT 95
[2024-10-17 22:01] VITALS: BP 106/51; PULSE 53
[2024-10-18 05:33] VITALS: BP 113/52; PULSE 59; RESP 16
--- NOTE | 2024-10-18 06:50 | NURSING ---
Written communication left for Dr. Almaraz related to increased BUN of 40 on 10/14 from 28 on 10/07. +2 edema to BLE noted on assessment, lung sounds CTAB anterior and posterior.
[2024-10-18 09:14] VITALS: BP 148/54; PULSE 57; RESP 17; TEMP 35.8; O2SAT 95
[2024-10-18] MEDS: Aspirin E.C. 81 MG Tablet PO (09:16)
[2024-10-18 09:18] VITALS: BP 148/54; PULSE 57
[2024-10-18 10:00] VITALS: PULSE 59; RESP 17; O2SAT 95
--- NOTE | 2024-10-18 17:45 | NURSING ---
Pt call light on, then personal alarm was alarming, this nurse went to pt room, observed assisting pt with transfer to bedside commode and he also turned the alarm off. educated both the patient and spouse the importance of having staff help with assisting pt, as pt was observed not using a walker or gait belt,. Lorena GUY aware, and helped this nurse assist patient back to bed, personal alarm turned on.
[2024-10-18 20:00] VITALS: BP 145/40; PULSE 55; RESP 16; O2SAT 94
[2024-10-18 20:08] VITALS: BP 145/40; PULSE 55
[2024-10-19 05:05] VITALS: BP 96/78; PULSE 53
[2024-10-19 10:50] VITALS: BP 96/79; PULSE 57; RESP 16; TEMP 36.1; O2SAT 97
[2024-10-19] MEDS: Aspirin E.C. 81 MG Tablet PO (11:07)
[2024-10-19 11:09] VITALS: PULSE 57
[2024-10-19 21:27] VITALS: BP 132/57; PULSE 57
[2024-10-19 21:34] VITALS: PULSE 57
--- NOTE | 2024-10-19 22:38 | NURSING ---
NOTIFIED DR ALCANTARA METOPROLOL HELD LAST 3 DOSES
[2024-10-20] VITALS (7 sets, daily range): BP systolic 108–174; BP diastolic 46–82; PULSE 54–82; RESP 16–18; TEMP 36.3; O2SAT 92–97
[2024-10-20] MEDS: Aspirin E.C. 81 MG Tablet PO (09:13)
[2024-10-21 05:52] LABS: Hematocrit 39.5 % (37-47); Hemoglobin 12.7 g/dL (12.0-15.0); Immature Granulocytes Count 0.020 X10^3/uL (0.0-0.0); Mean Corp Hgb Conc 32.2 g/dL (32-36); Mean Corpuscular Volume 89.4 fL (81-99); Mean Platelet Vol. 10.5 fl (6.2-12.0); NRBC Flagged by Analyzer 0 % (0-5); Platelet Count 329 K/mm3 (150-450); RBC Distribution Width CV 14.0 % (11.6-14.6); RBC Distribution Width SD 45.7 fl (35.1-43.9); Red Blood Count 4.42 M/mm3 (4.2-5.4); White Blood Count 7.3 K/mm3 (4.4-11.0)
[2024-10-21 06:12] LABS: Anion Gap 12 (5-15); BUN 42 mg/dL (4-19); BUN/Creat Ratio 28.2 RATIO (10-20); Calcium,Total 9.7 mg/dL (7.6-11.0); Carbon Dioxide 24.6 mmol/L (21.0-32.0); Chloride 97 mmol/L (98-108); Estimated Creatinine Clearance 43.34 ml/min (50-250); Glucose 88 mg/dL (70-99); Potassium 4.7 mmol/L (3.3-5.1)
[2024-10-21 06:15] VITALS: BP 116/48; PULSE 47
[2024-10-21 08:58] VITALS: BP 129/48; PULSE 53; RESP 17; TEMP 36.4; O2SAT 95
[2024-10-21] MEDS: Aspirin E.C. 81 MG Tablet PO (09:04)
[2024-10-21 09:05] VITALS: PULSE 50
[2024-10-21 15:00] VITALS: BMI 48.9
--- NOTE | 2024-10-21 17:45 | RAD_ITS ---
PROCEDURE: ABDOMEN SINGLE VIEW 10/21/2024 REASON FOR EXAM: LOOSE STOOLS. TECHNIQUE: ABDOMEN SINGLE VIEW COMPARISON: Abdominal radiographs 04/29/2019 FINDINGS: Nonobstructive bowel gas pattern. No discernible free air. No unusual calcific densities are seen. Cholecystectomy surgical clips. Imaged lung bases are clear. No significant osseous abnormality. RAD/Abdomen Single View IMPRESSION: Unremarkable abdominal radiographs. Reading Location: [id number]
[2024-10-21 20:00] VITALS: PULSE 50; O2SAT 91
[2024-10-21 20:45] VITALS: BP 101/41; PULSE 47
[2024-10-21 20:53] VITALS: BP 101/41; PULSE 47
--- NOTE | 2024-10-21 21:03 | NURSING ---
Dr. Almaraz updated on KUB results via phone call, impression: unremarkable, responded OK.
--- NOTE | 2024-10-22 01:39 | NURSING ---
Addendum entered by Adebayo Salas 10/22/24 03:22: no further c/o indigestion voiced. Original Note: Patient c/o indigestion, saltines and mk symone given, will monitor
[2024-10-22 01:49] VITALS: PULSE 49; O2SAT 92
[2024-10-22 06:26] LABS: Anion Gap 13 (5-15); BUN 46 mg/dL (4-19); BUN/Creat Ratio 32.4 RATIO (10-20); Calcium,Total 9.6 mg/dL (7.6-11.0); Carbon Dioxide 21.5 mmol/L (21.0-32.0); Chloride 98 mmol/L (98-108); Estimated Creatinine Clearance 45.28 ml/min (50-250); Glucose 90 mg/dL (70-99); Potassium 4.4 mmol/L (3.3-5.1)
[2024-10-22] MEDS: Aspirin E.C. 81 MG Tablet PO (09:23)
[2024-10-22 09:24] VITALS: PULSE 57
[2024-10-22 09:29] VITALS: BP 125/76; PULSE 57; RESP 18; TEMP 36.4; O2SAT 96
[2024-10-22 21:01] VITALS: BP 133/64; PULSE 57
[2024-10-22 21:02] VITALS: PULSE 57
[2024-10-23 08:34] VITALS: BP 130/55; PULSE 50; RESP 18; TEMP 35.4; O2SAT 95
[2024-10-23] MEDS: Aspirin E.C. 81 MG Tablet PO (08:57)
[2024-10-23 08:59] VITALS: BP 130/55; PULSE 50
[2024-10-23 16:00] VITALS: BP 121/40; PULSE 52; RESP 18; TEMP 36.3; O2SAT 95
[2024-10-23 20:00] VITALS: PULSE 49; O2SAT 96
[2024-10-23 20:46] VITALS: BP 122/52; PULSE 49; O2SAT 96
[2024-10-23 20:52] VITALS: BP 122/52; PULSE 49
[2024-10-24 01:20] VITALS: PULSE 52; O2SAT 96
[2024-10-24 09:46] VITALS: BP 141/50; PULSE 60; RESP 18; TEMP 36.6; O2SAT 94
[2024-10-24] MEDS: Aspirin E.C. 81 MG Tablet PO (09:49)
[2024-10-24 09:50] VITALS: BP 141/50; PULSE 60
[2024-10-24 16:00] VITALS: BP 140/35; PULSE 55; RESP 18; TEMP 36.4; O2SAT 95
[2024-10-24 19:44] VITALS: BP 134/51; PULSE 63
[2024-10-24 20:26] VITALS: PULSE 63
[2024-10-25] MEDS: Aspirin E.C. 81 MG Tablet PO (08:57)
[2024-10-25 08:59] VITALS: BP 148/49; PULSE 54
[2024-10-25 10:00] VITALS: BP 148/49; PULSE 54; RESP 18; TEMP 36.4
[2024-10-25 21:30] VITALS: BP 125/40; PULSE 53
[2024-10-25 22:00] VITALS: PULSE 53; RESP 16
[2024-10-26 08:18] VITALS: PULSE 56
[2024-10-26] MEDS: Aspirin E.C. 81 MG Tablet PO (08:18)
[2024-10-26] MEDS: Senna/Docusate Sodium 1 Tablet 2 TABLET PO (10:26)
[2024-10-26 12:04] VITALS: BMI 49.5
[2024-10-26 12:31] VITALS: BP 139/59; PULSE 56; RESP 18; TEMP 37.1; O2SAT 94
--- NOTE | 2024-10-26 16:13 | PCA ---
Addendum entered by Adina Aguilar 10/26/24 16:32: RN reaffirmed with with pt and spouse to call staff for transfers. Original Note: 10/26/24- Pts transferred pt from recliner to the wheelchair to wheel in the halls and down to birthday green party. ASSET AVAILABILITY LEADER reminded the pts that staff and therapy are working closely with pt and for safety reasons, only staff is to transfer pt. was agreeable. ASSET AVAILABILITY LEADER (s) had just got pt back to recliner after mod toilet transfer, did not mention need for w/c transfer. Pts chair alarm was on, however did not go off until pt was sitting in w/c already (delayed). After returning to room, did call for staff transfer.
[2024-10-26 21:18] VITALS: BP 131/44; PULSE 56
[2024-10-26 21:22] VITALS: PULSE 56
[2024-10-27 09:40] VITALS: BP 123/50; PULSE 63
[2024-10-27] MEDS: Aspirin E.C. 81 MG Tablet PO (09:40)
[2024-10-27 10:00] VITALS: PULSE 63; RESP 18
[2024-10-27 16:00] VITALS: BP 123/50; PULSE 63; RESP 18; TEMP 36.4; O2SAT 93
[2024-10-27 21:18] VITALS: BP 110/45; PULSE 49
[2024-10-27 21:22] VITALS: BP 110/45; PULSE 49
[2024-10-28 06:01] LABS: Hematocrit 38.0 % (37-47); Hemoglobin 12.1 g/dL (12.0-15.0); Immature Granulocytes Count 0.020 X10^3/uL (0.0-0.0); Mean Corp Hgb Conc 31.8 g/dL (32-36); Mean Corpuscular Volume 91.3 fL (81-99); Mean Platelet Vol. 10.5 fl (6.2-12.0); NRBC Flagged by Analyzer 0 % (0-5); Platelet Count 276 K/mm3 (150-450); RBC Distribution Width CV 14.3 % (11.6-14.6); RBC Distribution Width SD 48.0 fl (35.1-43.9); Red Blood Count 4.16 M/mm3 (4.2-5.4); White Blood Count 6.1 K/mm3 (4.4-11.0)
[2024-10-28 06:25] LABS: Anion Gap 11 (5-15); BUN 30 mg/dL (4-19); BUN/Creat Ratio 25.2 RATIO (10-20); Calcium,Total 9.5 mg/dL (7.6-11.0); Carbon Dioxide 24.7 mmol/L (21.0-32.0); Chloride 104 mmol/L (98-108); Estimated Creatinine Clearance 53.54 ml/min (50-250); Glucose 93 mg/dL (70-99); Potassium 5.0 mmol/L (3.3-5.1)
[2024-10-28 07:52] VITALS: BP 134/46; PULSE 60; RESP 18; TEMP 36.4; O2SAT 96
[2024-10-28] MEDS: Aspirin E.C. 81 MG Tablet PO (07:56)
[2024-10-28 07:57] VITALS: PULSE 60
--- NOTE | 2024-10-28 14:35 | CASEMGMT ---
Addendum entered by Monica Curtis 10/29/24 16:29: Pt provided additional choices: 1. [facility], 2. [facility], 3. [facility]. SW sent first 2 referrals via [employer]. Phoned [facility]. Addendum entered by Monica Curtis 10/28/24 15:50: [facility] cannot provide all requested disciplines. SW provided pt with list of skilled HHC agencies including quality and resource data via [employer] to review with and select additional providers. Pt agreed. Original Note: Social Work Pt and requested to speak with this worker. - SW presented to pts room where was present at bedside. Pt/hus requesting to DC. SW offered to set DC date. prefers DC 10/30. IDT agreeable and pt has returned to baseline. Therapy has provided extensive education to safely assisting pt at home. SW has provided resources for [facility] and medical alert. stated he isn't going to use that [[facility]] However, pt initiated calling for medical alert. stated he can transport pt at DC. SW offered list of skilled HHC agencies within geographical area, [place] with insurance, that include quality and resource data via [employer] guide. Pt denied and tated she used [facility] prior. SW agreed to refer. Pt confirmed no DME needs. - IDT updated. Referral sent to [facility] via [employer]. Plan: DC home with 10/30, [facility] PT/OT/SN/SHORT/PALMER Curtis MATERIALS RECYCLER ACCOUNTS RECEIVABLE SPECIALIST
--- NOTE | 2024-10-28 19:46 | DS.PCM_ITS ---
Providers Date of Admission: 10/06/24 Primary Care Physician: Dr. Sudheer Lion MD Reason For Visit: UTI/ PNA Diagnosis Discharge Diagnosis (1) Debility: Status: Inactive Code(s): R53.81 - Other malaise (2) Encephalopathy: Status: Acute Code(s): G93.40 - Encephalopathy, unspecified (3) Pneumonia: Status: Deleted Code(s): J18.9 - Pneumonia, unspecified organism (4) Urinary tract infection: Status: Deleted Code(s): N39.0 - Urinary tract infection, site not specified (5) Acute respiratory failure with hypoxia: Status: Acute Code(s): J96.01 - Acute respiratory failure with hypoxia (6) Acute heart failure with preserved ejection fraction (HFpEF): Status: Acute Code(s): I50.31 - Acute diastolic (congestive) heart failure (7) Lethargy: Status: Acute Code(s): R53.83 - Other fatigue (8) History of stroke: Status: Inactive Code(s): Z86.73 - Personal history of transient ischemic attack (TIA), and cerebral infarction without residual deficits (9) Right hemiparesis: Status: Acute Code(s): G81.91 - Hemiplegia, unspecified affecting right dominant side (10) Coronary artery disease: Status: Chronic Code(s): I25.10 - Atherosclerotic heart disease of [place] coronary artery without angina pectoris (11) Overactive bladder: Status: Acute Code(s): N32.81 - Overactive bladder (12) Pulmonary hypertension: Status: Chronic Code(s): I27.20 - Pulmonary hypertension, unspecified (13) Anxiety: Status: Acute Code(s): F41.9 - Anxiety disorder, unspecified (14) Hyperlipidemia: Status: Chronic Code(s): E78.5 - Hyperlipidemia, unspecified (15) Muscle spasm: Status: Inactive Code(s): M62.838 - Other muscle spasm (16) Depression: Status: Acute Code(s): F32.9 - Major depressive disorder, single episode, unspecified (17) Type 2 diabetes mellitus with hyperglycemia: Status: Acute Code(s): E11.65 - Type 2 diabetes mellitus with hyperglycemia (18) GERD (gastroesophageal reflux disease): Status: Acute Code(s): K21.9 - Gastro-esophageal reflux disease without esophagitis (19) Diabetic polyneuropathy: Status: Acute Code(s): E11.42 - Type 2 diabetes mellitus with diabetic polyneuropathy (20) Alzheimer's disease: Status: Acute Code(s): G30.9 - Alzheimer's disease, unspecified; F02.80 - Dementia in other diseases classified elsewhere, unspecified severity, without behavioral disturbance, psychotic disturbance, mood disturbance, and anxiety (21) Morbid obesity: Status: Chronic Code(s): E66.01 - Morbid (severe) obesity due to excess calories Plan 68 year old female with below past medical history hospitalized for encephalopathy 2/2 E. Coli UTI/pneumonia, complicated by lethargy 2/2 medications, acute respiratory failure with hypoxia 2/2 acute HFpEF, admitted to TCU with debility, here for rehabilitation, strengthening, prior to discharge home with . * Debility - PT/OT. * Pain - Tylenol 1000mg q6 prn pain (1-10). * Bowel - senna/colace 2 tablets bid, Magnesium citrate 300mL daily prn. * Adult immunization - Administer pneumonia vaccine, covid vaccine, flu vaccine as appropriate. * DVT prophylaxis - Hold on dual antiplatelet therapy. * Hypertension - Metoprolol 50mg bid, Amlodipine 10mg daily. * Coronary artery disease - Metoprolol 50mg bid, Lisinopril 20mg daily, Plavix 75mg daily, Aspirin 81mg daily. * History stroke - Plavix 75mg daily, Aspirin 81mg daily. * Hyperlipidemia - Atorvastatin 40mg qhs. * Alzheimer Disease - Donepezil 10mg qhs. * GERD - Famotidine 20mg daily. * Iron deficiency anemia - Ferrous sulfate 325mg daily. * Folate deficiency - Folic Acid 1mg daily. * Chronic HFpEF - Metoprolol 50mg bid, Lisinopril 20mg daily, Furosemide 40mg bid. * Diabetes Mellitus II - Glimepiride 1mg daily. * Diabetic polyneuropathy - Lyrica 100mg bid. * Muscle spasm - Tizanidine 4mg bid. * Rash - Kenalog cream bid prn. The following psychotropic medication was present on admission: Xanax 0.25mg daily, 0.25mg qhs prn. Psychotropic medication therapy is indicated for a diagnosis of: Anxiety. Based on my clinical evaluation, continuation of the medication is necessary at this time. Gradual dose reduction plan (select one): ____ GDR will be attempted. Will monitor patient symptoms and behaviors in response to GDR. __x__ GRD contraindicated. 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 The following psychotropic medication was present on admission: Duloxetine 60mg daily. Psychotropic medication therapy is indicated for a diagnosis of: Major Depression. Based on my clinical evaluation, continuation of the medication is necessary at this time. Gradual dose reduction plan (select one): ____ GDR will be attempted. Will monitor patient symptoms and behaviors in response to GDR. __x__ GRD contraindicated. 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 The following psychotropic medication was present on admission: Nortriptyline 50mg qhs. Psychotropic medication therapy is indicated for a diagnosis of: Diabetic polyneuropathy. Based on my clinical evaluation, continuation of the medication is necessary at this time. Gradual dose reduction plan (select one): ____ GDR will be attempted. Will monitor patient symptoms and behaviors in response to GDR. __x__ GRD contraindicated. Reason contraindicated: stable chronic senior care use. Medications at Discharge Home Medications atorvastatin 40 mg tablet 40 mg PO QHS CHOLESTEROL 01/27/16 lisinopril 20 mg tablet 20 mg PO DAILY BP 03/17/21 glimepiride 1 mg tablet 1 mg PO DAILY diabetes 09/01/21 amlodipine 10 mg tablet 10 mg PO DAILY [facility] 06/06/22 clopidogrel 75 mg tablet 75 mg PO DAILY antiplatelet 06/06/22 famotidine 20 mg tablet 20 mg PO DAILY 06/06/22 folic acid 1 mg tablet 1 mg PO DAILY supplement 06/06/22 aspirin 81 mg tablet,delayed release 81 mg PO DAILY [facility] 06/07/22 duloxetine 60 mg capsule,delayed release 60 mg PO DAILY depression 11/21/22 pregabalin 100 mg capsule 100 mg PO TID nerve/muscle pain 11/22/22 donepezil 23 mg tablet 23 mg PO DAILY dementia 10/02/24 loperamide 2 mg capsule 4 mg PO QHS diarrhea 10/02/24 alprazolam 0.25 mg tablet 0.25 mg PO DAILY anxiety #0 tabs 10/06/24 alprazolam 0.25 mg tablet 0.25 mg PO QHS PRN Anxiety #0 tabs 10/06/24 ferrous sulfate 325 mg (65 mg iron) tablet (FeroSul) 325 mg PO DAILY supplement 30 days #0 tabs 10/06/24 nortriptyline 50 mg capsule 50 mg PO QHS depression 30 days #0 caps 10/06/24 acetaminophen 500 mg tablet 1,000 mg (2 x 500 mg) PO Q6H PRN PRN Pain Score 1-10 #0 tabs 10/28/24 furosemide 40 mg tablet 40 mg PO DAILY 30 days #30 tabs 10/28/24 metoprolol tartrate 25 mg tablet 25 mg PO BID 30 days #60 tabs 10/28/24 Hospital Course Operations None Procedures None Summary of Care Provided Minutes Spent on Discharge: 35 Hospital Course: 68 year old female with below past medical history hospitalized for encephalopathy 2/2 E. Coli UTI/pneumonia, complicated by lethargy 2/2 medications, acute respiratory failure with hypoxia 2/2 acute HFpEF, admitted to TCU with debility, here for rehabilitation, strengthening, prior to discharge home with . Discharge home with 10/30/2024, [facility] PT/OT/SN/SHORT/SW. Physical Exam Const alert General Appearance: cooperative HEENT normocephalic Eyes PERRL and EOMs intact bilaterally Neck supple, no JVD and no carotid bruits Resp normal respiratory effort, normal air movement and clear to auscultation bilaterally Cardio regular rate and regular rhythm GI normal to inspection, nondistended, normoactive bowel sounds, non-tender and non-distended Extremity normal capillary refill General Extremity: Negative for edema Skin no rashes or lesions noted General Skin Exam: no breakdown Psych affect normal Appearance: appropriate Weight / BMI Weight Weight: 122.016 kg Body Mass Index (BMI) 49.5 ABG / Lab / Microbiology Data 10/28/24 05:25 10/28/24 05:25 Laboratory: Laboratory Results - last 24 hr 10/28/24 05:25: WBC 6.1, RBC 4.16 L, Hgb 12.1, Hct 38.0, MCV 91.3, MCH 29.1, M CHC 31.8 L, RDW Std Deviation 48.0 H, RDW Coeff of Uriel 14.3, Plt Count 276, MPV 10.5, Immature Gran % (Auto) 0.300, Neut % (Auto) 44.3 L, Lymph % (Auto) 41.2 H, Morton % (Auto) 9.7, Eos % (Auto) 3.4, Baso % (Auto) 1.1 H, Absolute Neuts (auto) 2.7, Absolute Lymphs (auto) 2.51, Nucleated RBC % 0, Sodium 139, Potassium 5.0, Chloride 104, Carbon Dioxide 24.7, Anion Gap 11, BUN 30 H, Creatinine 1.20, Estim Creat Clear Calc 53.54, Est GFR (MDRD) Non-Af 48 L, BUN/Creatinine Ratio 25.2 H, Glucose 93, Calcium 9.5 10/28/24 06:02: POC Glucose 85 D/C Instructions Discharge Activity: Return to Normal Activity, May Shower and Use Walker Weight Bearing Status: Weight bearing as tolerated Call your doctor if you observe: Fever of 101 or Higher, Inability to urinate, Inability to have a bowel movement, Shortness of breath, Dizziness, Fainting spells, Swelling in the ankles, Chest pain and Uncontrolled pain DC O2, CPAP, BIPAP Needs Home O2 Discharge instructions: No Additional Instructions: Discharge home with 10/30/2024, [facility] PT/OT/SN/SHORT/SW. Meaningful Use Info Meaningful Use Meaningful Use Diagnoses (Choose all that apply): None applicable Discharge Plan Admission Admit Date/Time: 10/06/24 16:24 Primary Reason for Your Visit: Debility. Attending Provider: Adrián Almaraz Chi Primary Care Provider: Sudheer Lion Instructions Additional Instructions / Restrictions: Discharge home with 10/30/2024, [facility] PT/OT/SN/SHORT/SW. Discharge Orders/Prescriptions Prescriptions: New furosemide 40 mg Tablet 40 mg PO DAILY 30 Days Qty: 30 0RF acetaminophen 500 mg Tablet 1,000 mg PO Q6H PRN PRN (Reason: Pain Score 1-10) Qty: 0 0RF metoprolol tartrate 25 mg Tablet 25 mg PO BID 30 Days Qty: 60 0RF Continued clopidogrel 75 mg tablet 75 mg PO DAILY folic acid 1 mg tablet 1 mg PO DAILY famotidine 20 mg tablet 20 mg PO DAILY amlodipine 10 mg tablet 10 mg PO DAILY aspirin 81 mg tablet,delayed release (DR/EC) 81 mg PO DAILY duloxetine 60 mg capsule,delayed release(DR/EC) 60 mg PO DAILY pregabalin 100 mg capsule 100 mg PO TID atorvastatin 40 MG tablet 40 mg PO QHS lisinopril 20 mg tablet 20 mg PO DAILY glimepiride 1 mg Tablet 1 mg PO DAILY loperamide 2 mg capsule 4 mg PO QHS donepezil 23 mg tablet 23 mg PO DAILY alprazolam 0.25 mg Tablet 0.25 mg PO DAILY Qty: 0 0RF alprazolam 0.25 mg Tablet 0.25 mg PO QHS PRN (Reason: Anxiety) Qty: 0 0RF ferrous sulfate [FeroSul] 325 mg (65 mg iron) tablet 325 mg PO DAILY 30 Days Qty: 0 0RF nortriptyline 50 mg capsule 50 mg PO QHS 30 Days Qty: 0 0RF Discontinued tizanidine 4 mg tablet 4 mg PO BID pantoprazole 40 mg tablet,delayed release (DR/EC) 40 mg PO DAILY hydrocortisone 1 % lotion 1 ea topical BID triamcinolone acetonide 0.1 % cream 1 applic topical BID PRN (Reason: SKIN CONDITION) metoprolol tartrate 50 mg tablet 50 mg PO BID insulin lispro [Humalog KwikPen Insulin] 100 unit/mL Insulin Pen See Protocol subcut ACHS Qty: 0 0RF Protocol: 3. Sliding Scale Insulin Med Dosing Condition: 150-189 mg/dl = 1 unit Condition: 190-229 mg/dl = 2 units Condition: 230-269 mg/dl = 3 units Condition: 270-309 mg/dl = 4 units Condition: 310-349 mg/dl = 5 units Condition: 350-399 mg/dl = 6 units Condition: 400-449 mg/dl = 7 units Condition: Greater than 449 call physician Protocol Text: - Use for Total Daily Dose of Insulin 37-55 units - Obsese, infected, or steroid patients MEDIUM DOSING ALGORITHIM sennosides-docusate sodium [Stimulant Laxative Plus] 8.6-50 mg Tablet 2 tab PO BID Qty: 0 0RF furosemide [Lasix] 40 mg tablet 40 mg PO BID Qty: 60 0RF Referrals / Follow Up: Sudheer Lion MD [Primary Care Provider] - Disposition Disposition (needs filled in before D/C Order can be placed): Home Health Service
[2024-10-28 21:23] VITALS: BP 122/49; PULSE 50
[2024-10-28 21:26] VITALS: BP 122/49; PULSE 50
[2024-10-29] MEDS: MELATONIN 3 MG TABLET PO (00:26)
[2024-10-29 07:53] VITALS: BP 131/53; PULSE 55; RESP 187; TEMP 36.3; O2SAT 95
[2024-10-29] MEDS: Aspirin E.C. 81 MG Tablet PO (07:56)
[2024-10-29 07:57] VITALS: BP 131/53; PULSE 55
[2024-10-29 21:21] VITALS: BP 131/44; PULSE 48
[2024-10-29 21:23] VITALS: PULSE 48; RESP 16; O2SAT 96
[2024-10-29 21:27] VITALS: PULSE 48
[2024-10-30 06:59] VITALS: PULSE 53; RESP 16; O2SAT 95
[2024-10-30 09:51] VITALS: BP 138/54; PULSE 61; RESP 18; TEMP 36.2; O2SAT 96
[2024-10-30 09:54] VITALS: PULSE 61
[2024-10-30] MEDS: Aspirin E.C. 81 MG Tablet PO (09:55)
--- NOTE | 2024-10-30 10:30 | CASEMGMT ---
Addendum entered by Monica Curtis 10/30/24 12:18: [facility] can accept pt with SOC 10/31. Original Note: Social Work SW spoke with pt to update that [facility] denied. SW notified that SW will continue to follow for an accepting HHC agency. is transporting pt home about 1-2 pm. SW educated HHC agency will contact for SOC date date, but typically 2-3 days after DC, pending PCP signing orders. SW completed BIMS () and PHQ-2 () for MDS assessment. 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
[2024-10-30 12:42] VITALS: BP 126/54; PULSE 50; RESP 18; TEMP 36.4; O2SAT 94
== END 2024-10-30 13:00 | disposition home health service (06) | DRG 689 ==
PROVIDERS: Admitting Provider Family Medicine Geriatric Medicine; PCP Family Medicine; Visit Provider Family Medicine Geriatric Medicine
DX: N39.0 Urinary tract infection, site not specified (principal); I50.33 Acute on chronic diastolic (congestive) heart failure; J18.9 Pneumonia, unspecified organism; G81.91 Hemiplegia, unspecified affecting right dominant side; Z68.42 Body mass index [BMI] 45.0-49.9, adult; I27.20 Pulmonary hypertension, unspecified; E11.42 Type 2 diabetes mellitus with diabetic polyneuropathy; G30.9 Alzheimer's disease, unspecified; F32.9 Major depressive disorder, single episode, unspecified; I11.0 Hypertensive heart disease with heart failure; D50.9 Iron deficiency anemia, unspecified; E66.01 Morbid (severe) obesity due to excess calories; K21.9 Gastro-esophageal reflux disease without esophagitis; E78.5 Hyperlipidemia, unspecified; M62.838 Other muscle spasm; E53.8 Deficiency of other specified B group vitamins; F41.9 Anxiety disorder, unspecified; E11.65 Type 2 diabetes mellitus with hyperglycemia; I25.10 Atherosclerotic heart disease of native coronary artery without angina pectoris; F02.80 Dementia in other diseases classified elsewhere, unspecified severity, without behavioral disturbance, psychotic disturbance, mood disturbance, and anxiety; B96.20 Unspecified Escherichia coli [E. coli] as the cause of diseases classified elsewhere; N32.81 Overactive bladder; Z95.5 Presence of coronary angioplasty implant and graft; Z79.899 Other long term (current) drug therapy; Z79.84 Long term (current) use of oral hypoglycemic drugs; R53.83 Other fatigue; T42.7 Poisoning by, adverse effect of and underdosing of unspecified antiepileptic and sedative-hypnotic drugs; T42.4X5D Adverse effect of benzodiazepines, subsequent encounter; T42.6X5D Adverse effect of other antiepileptic and sedative-hypnotic drugs, subsequent encounter
CPT/HCPCS: 36415; 74018; 80048; 82962; 83036; 85025; 92507; 92523; 97110; 97116; 97162; 97166; 97530; 97535; A4216

== ENCOUNTER → 2024-11-11 | Outpatient (CLI) | payer MEDICARE, OTHER, SELFPAY | END | disposition home or self-care (01) | LOC: MFPLAB 16:07 → LABSPEC 16:12 | PROVIDERS: PCP Family Medicine; Referring Provider Family Medicine; Visit Provider Family Medicine | DX: Z87.440 Personal history of urinary (tract) infections (principal) | CPT/HCPCS: 87086; 87088 ==

== ENCOUNTER → 2024-11-20 | Outpatient (CLI) | payer MEDICARE, OTHER, SELFPAY | END | disposition home or self-care (01) | PROVIDERS: PCP Family Medicine; Visit Provider Family Medicine | DX: R19.7 Diarrhea, unspecified (principal) | CPT/HCPCS: 87177; 87209; 87493 ==

== ENCOUNTER → 2025-01-05 | Outpatient (CLI) | payer MEDICARE, OTHER, SELFPAY | END | disposition home or self-care (01) | LOC: LABSPEC 16:58 | PROVIDERS: PCP Family Medicine; Visit Provider Family Medicine | DX: N39.0 Urinary tract infection, site not specified (principal) | CPT/HCPCS: 87077; 87086; 87088; 87186 ==

== ENCOUNTER 2025-02-04 15:00 | Outpatient (RCR) | payer MEDICARE, OTHER, SELFPAY ==
--- NOTE | 2025-01-29 14:41 | HP.PTEVAL ---
Patient's Visit Information Visit Information Visit Information: MACKENZIE AKHTAR is a 69 year old F referred to Physical Therapy by Dr. Sudheer Lion MD with a diagnosis of WEAKNESS AND FREQUENT FALLS. Date of Evaluation: 01/29/25 Physical Therapist: Nicole Malik PT, Cert MDT Visit Plan Frequency: 2x /Week Duration: 4-6 Weeks Plan: BLE ROM, STRETCHING AND STRENGTHENING WITH HEP FOR PATIENT AND CAREGIVER. TRANSFER TRAINING - STS AND STAND PIVOT. NUSTEP STANDING BALANCE ACTIVITIES. Subjective Subjective: PATIENT PRESENTS TO PT IN A W/C WITH HER AND HE REPORTS SHE WAS IN THE HOSPITAL FOR 6 DAYS FOLLOWED BY TCU [facility] FOR UTI. HE REPORTS SHE ALMOST GOT SEPTIC. SHE WAS DISCHARGED HOME IN NOVEMBER AND THEN HAD HOME HEALTH PHYSICAL THERAPY FOR ABOUT 3 WEEKS INTO EARLY DEC 2024. HE REPORTS SHE IS A LOT WEAKER THAN BEFORE SHE WENT IN THE HOSPITAL AND SHE IS NOT ABLE TO WALK OR DO SIT TO STAND EXERCISES SO THEY WERE MAINLY DOING ARM EX'S. REPORTS THEY HAVE A MATEUSZ LIFT NOW. PATIENT REPORTS THAT MOST OF THE TIME SHE IS IN BED AT HOME. SHE REPORS SHE IS NOT GETTING UP TO THE THE WALKER TO WALK AT ALL, JUST TO TRANSFER. REPORTS THEY WERE GIVEN THE OPTION FOR HER TO GO TO A PRISON AND THEY ARE NOT READY TO MAKE THAT DECISION YET. PATIENT AND REPORT MULTIPLE R KNEE SURGERIES (APPROX 10) AND MULTIPLE FALLS RESULTING IN R LEG FRACTURES. SHE REPORTS SHE DOESN'T HAVE MUCH FEELING IN HER R LEG OR USE IN HER R LEG AND HER FOOT IS NUMB. SHE REPORTS SHE HAS FEELING IN HER LEFT LEG AND HASN'T HAD ANY SURGERIES ON IT BUT SHE DOESN'T HAVE STRENGTH IN IT. INTERMITTENT R ARM AND R BUTTOCK PAIN. PATIENT REPORTS SHE DOESN'T HAVE A LOT OF PAIN. PATIENT HAD A STROKE 2005. Objective Objective: Neuro: ALICE LE LIGHT TOUCH SENSATION IS GROSSLY INTACT EXCEPT R FOOT. MMT: R KNEE FLEX = 10.9, EXT = 5.4 # PEAK FORCE; L KNEE FLEX= 27.5, EXT = 24.7 #PEAK FORCE. ROM: R KNEE 28-0-85 degrees; L KNEE 0-0-109 degrees. TRANSFERS: SIT TO STAND - MOD TO MAX +1 SIT TO STAND AT WALKER + VERBAL CUES FOR PATIENT PROPER HAND PLACEMENT ON WALKER. GAIT: NON-AMBULATORY. Balance/Special Test Scores Lower Extremity Functional Score: 0 Goals Goal 1:: INCREASE ALICE KNEE STRENGTH BY AT LEAST 10 LBS TO AID IN STS TRANSFERS. Goal Time Frame: 4-6 Weeks Goal 2:: PATIENT WILL BE ABLE TO ASSIST WITH STAND PIVOT TRANSFER TO ALLOW FOR SAFE TRANSFERS WITH + 1 MIN TO MOD ASSIST. Goal Time Frame: 4-6 Weeks Goal 3:: PATIENT WILL BE ABLE TO PERFORM STS TRANSFER WITH +1 MIN TO MOD ASSIST SAFELY. Goal Time Frame: 4-6 Weeks Goal 4:: INDEP HEP Goal Time Frame: 4-6 Weeks Rehabilitation Potential Physical Therapy Diagnosis: B KNEE WEAKNESS, LIMITED ROM AND DIFFICULTY WITH TRANSFERS SECONDARY TO DEBILITY. Rehabilitation Potential: Questionable Anticipated Interventions Patient/Client Instruction: Educate patient on: Condition, Plan of Care and Risk Factors For the Purpose of:: To improve self management Therapeutic Exercise to Include: Strength training, Balance training and Flexibilty training For the Purpose of:: To improve muscle performance and motor function, To improve ability to perform ADL's, To improve ability of physical actions for home/community/work/leisure, To increase flexibility/ROM, To improve balance, To improve safety, To facilitate caregiver knowledge and To improve ability to perform tasks related to life management Text: Thank you for the opportunity to evaluate your patient. For Medicare and Medicare HMO plans, please review the plan of care and approve it. It will need to be FAXED BACK to us at [phone] for Medicare purposes. For Medicare only, by signing this I certify the plan of care. Please let me know if there are questions or concerns regarding this plan of care. Physician Signature: Date:
--- NOTE | 2025-02-11 11:43 | HP.PT.NRP ---
Patient Information Patient Information: MACKENZIE AKHTAR was seen in my office for initial evaluation on 01/29/25. The following Plan of Care was established for this patient: POC Established Initial Frequency: 2x /Week Initial Duration: 4-6 Weeks Anticipated Interventions Patient/Client Instruction: Educate patient on: Condition, Plan of Care and Risk Factors For the Purpose of:: To improve self management Therapeutic Exercise to Include: Strength training, Balance training and Flexibilty training For the Purpose of:: To improve muscle performance and motor function, To improve ability to perform ADL's, To improve ability of physical actions for home/community/work/leisure, To increase flexibility/ROM, To improve balance, To improve safety, To facilitate caregiver knowledge and To improve ability to perform tasks related to life management Last Seen Last Seen: This patient was last seen in our office 02/04/25. Pertinent comments regarding their Physical therapy will appear below: It has been my pleasure to see this patient for an initial evaluation and 2 follow up visits. This patient called today and cancelled all remaining appointments. No reason given. She is appropriate to return to MD for further follow-up as needed. At this point I will be discontinuing this patient from physical therapy. I would be happy to see this patient again in the future if found appropriate by the physician. Thank you! Nicole Malik, PT, Cert MDT Balance/Gait/Functional tests Balance/Special Test Scores Lower Extremity Functional Score: 0
== END 2025-02-04 19:00 | disposition home or self-care (01) ==
LOC: PT 15:00
PROVIDERS: PCP Family Medicine; Referring Provider Family Medicine; Visit Provider Family Medicine
DX: R29.6 Repeated falls (principal); Z91.81 History of falling
CPT/HCPCS: 97110; 97162